=== PATIENT | male | born 1955 | race African-American/Black ===

== ENCOUNTER 2016-07-24 21:44 | Inpatient (IN) | payer OTHER, MEDICARE ==
[~2016-07-24] VITALS: Ht 182.9 cm; Wt 123.0 kg
[~2016-07-24 21:44] MED LIST: AMBI10TA PO; CORE25TA PO; GABA800T PO; HYDR-3535 PO; HYDR50TA15 PO; HYDR50TA3 PO; LANTUS2P SQ; METO5TAB PO; NIFE15TA PO; NITR1SUB3 SL; NOVORP2 SQ; ORPH100T PO; POTA1TAB4 PO; ROSU10 PO; WARF-60 PO
[2016-07-24 21:45] VITALS: BP 221/102; PULSE 70; RESP 16; TEMP 98.1; O2SAT 96
[2016-07-24 21:56] VITALS: BP 242/116; PULSE 69; RESP 15; TEMP 98.8; O2SAT 95
[2016-07-24] MEDS ORDERED: hydrALAZINE HCL 20 MG/ML VIAL IV PUSH ONE (22:00)
[2016-07-24] MEDS ORDERED: SODIUM CHLORIDE 0.9% FLUSH 5 ML FLUSH IVF PRN (22:00)
[2016-07-24 22:03] VITALS: BP 242/116; PULSE 76; RESP 18; O2SAT 94
[2016-07-24] MEDS: NITROGLYCERIN 0.4 MG SL 25 TABS/BTL SL SCH ×3 (22:03→22:13)
--- NOTE | 2016-07-24 22:03 | PD ---
HPI Chief Complaint: Chest Pain Time Seen by Provider: 21:50 Travel History International Travel<30 days: No Contact w/Intl Traveler<30days: No History of Present Illness HPI Patient is a 61-year-old male with history of coronary disease, diabetes, hyperlipidemia, DVT, pancreatitis, sickle cell trait, presents to emergency room with complaints of chest pain. Patient reports history of multiple cardiac stents placed in the past. Patient reports that he does follow with Dr. Sriram Brooks in the office and is scheduled to have an appointment with him on August 03, 2016. Patient reports that around 8 PM tonight, he was getting to go to bed and began having left-sided chest pain. Patient reports that the pain feels like a "pressure to my chest" which radiates to his neck. Patient reports that he has had similar symptoms in the past when he has had chest pain. Patient reports that he feels short of breath with this chest pain. Patient denies diaphoresis , palpitations, nausea vomiting with symptoms. Patient denies cough or congestion or any other symptoms at this time. Patient does have history of hypertension, patient's blood pressures elevated at this time, patient reports that he has been taking his antihypertensives as prescribed. PFSH Past Medical History Hx Anticoagulant Therapy: Yes AAA: Yes (JUL 2011/ ) Anemia: Yes Arthritis: No Asthma: No Autoimmune Disease: No Blood Disorders: Yes (SICKLE CELL TRAIT) Anxiety: No Depression: No Heart Rhythm Problems: No Cancer: No Cardiac Catheterization: Yes Cardiovascular Problems: Yes (HTN, STENTS) High Cholesterol: Yes Chemotherapy: No Chest Pain: Yes Congestive Heart Failure: No COPD: No Cerebrovascular Accident: Yes Coronary Artery Disease: Yes Diabetes: Yes Diminished Hearing: No Deep Vein Thrombosis: Yes (LT LEG) Endocrine: Yes GERD: No Glaucoma: No Genitourinary: No Headaches: No Hepatitis: No Hiatal Hernia: No Heparin Induced Thrombocytopen: No Hypertension: Yes Immune Disorder: No Implanted Vascular Access Dvce: Yes (RIGHT INSULIN PUMP removed) Kidney Stones: No Musculoskeletal: Yes Neurologic: No Psychiatric: No Reproductive: No Respiratory: Yes Immunizations Current: Yes Migraines: No Myocardial Infarction: No Pancreatitis: Yes Radiation Therapy: No Renal Failure: No Seizures: No Sickle Cell Disease: Yes (TRAIT) Sleep Apnea: No Thyroid Disease: No Ulcer: No PNEUMOCCOCAL Vaccine (Year): 3 Past Surgical History Abdominal Aneurysm Repair: Yes (2012) Abdominal Surgery: Yes AICD: No Appendectomy: No Arteriovenous Shunt: No Body Medical Devices: STENTS X 4 Cardiac Surgery: Yes Cholecystectomy: Yes Coronary Artery Bypass Graft: No Coronary Stent: Yes (2009 X 2, 2010 X2) Ear Surgery: No Endocrine Surgery: No Eye Surgery: No Genitourinary Surgery: No Gynecologic Surgery: No Insulin Pump: Yes (removed) Joint Replacement: Yes (left hip) Neurologic Surgery: No Oral Surgery: No Pacemaker: No Thoracic Surgery: No Other Surgery: Yes (FEM-POP L LEG; ) Social History Alcohol Use: No Tobacco Use: No (QUIT 2005) Substance Use: No Allergies-Medications (Allergen,Severity, Reaction): Coded Allergies: DAWIT Inhibitors (Verified Allergy, Severe, ANGIOEDEMA, 07/24/16) Vasotec (Verified Allergy, Severe, 07/24/16) ANGIOEDEMA Clonidine (Verified Allergy, Mild, DRY MOUTH, 07/24/16) Dilaudid (Verified Adverse Reaction, Intermediate, ITCHING, 07/24/16) Reported Meds & Prescriptions Reported Meds & Active Scripts Active Nifedical XL (Nifedipine) 60 Mg Tab 60 Mg PO DAILY 30 Days Hydralazine (Hydralazine HCl) 50 Mg Tab 50 Mg PO TID 30 Days Reported Warfarin 10 Mg Tab 13 Mg PO DAILY Lantus Inj (Insulin Glargine) 1,000 Unit/10 Ml Vial 60 Units SQ BID Metoclopramide (Metoclopramide HCl) 5 Mg Tab 5 Mg PO TIDAC Orphenadrine ER 12 HR (Orphenadrine Citrate) 100 Mg Tab 100 Mg PO BID Ambien (Zolpidem Tartrate) 10 Mg Tab 10 Mg PO HS PRN Novolin R Inj (Insulin Human Regular) 1,000 Unit/10 Ml Vial 0 SQ TIDACHS Sliding Scale As Directed. Nitroglycerin SL (Nitroglycerin) 0.4 Mg Subl 0.4 Mg SL DIRECTED PRN ONE TABLET UNDER THE TONGUE NEEDED FOR CHEST PAIN, MAY REPEAT EVERY FIVE MINUTES FOR A TOTAL OF 3 DOSES OR CALL 911 IF NO RELIEF Lortab (Hydrocodone-Acetaminophen) 10-325 Mg Tab 1 Tab PO Q4H PRN K-Tab (Potassium Chloride) 20 Meq Tab 20 Meq PO DAILY Hydrochlorothiazide 50 Mg Tab 50 Mg PO DAILY Crestor (Rosuvastatin Calcium) 10 Mg Tab 10 Mg PO DAILY Coreg (Carvedilol) 25 Mg Tab 25 Mg PO BID Gabapentin 800 Mg Tab 800 Mg PO TID Review of Systems General / Constitutional: No: Fever Eyes: No: Visual changes HENT: No: Headaches Cardiovascular: Positive: Chest Pain or Discomfort, No: Diaphoresis Respiratory: Positive: Shortness of Breath Gastrointestinal: No: Abdominal Pain Genitourinary: No: Dysuria Musculoskeletal: No: Pain Skin: No Rash Neurologic: No: Weakness Psychiatric: No: Depression Endocrine: No: Polydipsia Hematologic/Lymphatic: No: Easy Bruising Physical Exam Narrative GENERAL: No acute distress, nontoxic SKIN: Warm and dry. HEAD: Atraumatic. Normocephalic. EYES: Pupils equal and round. No scleral icterus. No injection or drainage. ENT: No nasal bleeding or discharge. Mucous membranes pink and moist. NECK: Trachea midline. No JVD. CARDIOVASCULAR: Regular rate and rhythm. No murmur appreciated. RESPIRATORY: No accessory muscle use. Clear to auscultation. Breath sounds equal bilaterally. GASTROINTESTINAL: Abdomen soft, non-tender, nondistended. Hepatic and splenic margins not palpable. MUSCULOSKELETAL: No obvious deformities. No clubbing. No cyanosis. No edema. NEUROLOGICAL: Awake and alert. No obvious cranial nerve deficits. Motor grossly within normal limits. Normal speech. PSYCHIATRIC: Appropriate mood and affect; insight and judgment normal. Data Data Last Documented VS Vital Signs Date Time Temp Pulse Resp B/P Pulse Ox O2 Delivery O2 Flow Rate FiO2 07/24/16 22:35 65 17 203/103 94 07/24/16 22:09 Room Air 07/24/16 21:56 98.8 Orders Electrocardiogram (07/24/16 21:57) B-Type Natriuretic Peptide (07/24/16 21:57) Ckmb (Isoenzyme) Profile (07/24/16 21:57) Complete Blood Count With Diff (07/24/16 21:57) Comprehensive Metabolic Panel (07/24/16 21:57) Prothrombin Time / Inr (Pt) (07/24/16 21:57) Act Partial Throm Time (Ptt) (07/24/16 21:57) Troponin I (07/24/16 21:57) Chest, Single Ap (07/24/16 21:57) Ecg Monitoring (07/24/16 21:57) Iv Access Insert/Monitor (07/24/16 21:57) Oximetry (07/24/16 21:57) Sodium Chloride 0.9% Flush (Ns Flush) (07/24/16 22:00) Nitroglycerin Sl (Nitrostat Sl) (07/24/16 22:00) Hydralazine Inj (Apresoline Inj) (07/24/16 22:00) Morphine Inj (Morphine Inj) (07/24/16 22:30) CKMB (07/24/16 22:15) CKMB% (07/24/16 22:15) Ventilation & Perfusion Scan (07/24/16 ) Morphine Inj (Morphine Inj) (07/24/16 23:45) Heparin Infusion KENNEDI.Q1H (07/24/16 23:37) Heparin-D5w Inj (Heparin-D5w Inj) (07/24/16 23:45) Admit Order (Ed Use Only) (07/25/16 01:14) Labs Laboratory Tests Test 07/24/16 22:15 White Blood Count 5.8 TH/MM3 Red Blood Count 4.72 MIL/MM3 Hemoglobin 12.9 GM/DL Hematocrit 37.1 % Mean Corpuscular Volume 78.6 FL Mean Corpuscular Hemoglobin 27.4 PG Mean Corpuscular Hemoglobin 34.8 % Concent Red Cell Distribution Width 17.9 % Platelet Count 208 TH/MM3 Mean Platelet Volume 8.4 FL Neutrophils (%) (Auto) 56.1 % Lymphocytes (%) (Auto) 30.3 % Monocytes (%) (Auto) 10.5 % Eosinophils (%) (Auto) 2.5 % Basophils (%) (Auto) 0.6 % Neutrophils # (Auto) 3.2 TH/MM3 Lymphocytes # (Auto) 1.7 TH/MM3 Monocytes # (Auto) 0.6 TH/MM3 Eosinophils # (Auto) 0.1 TH/MM3 Basophils # (Auto) 0.0 TH/MM3 CBC Comment DIFF FINAL Differential Comment Prothrombin Time 12.2 SEC Prothromb Time International 1.1 RATIO Ratio Activated Partial 28.1 SEC Thromboplast Time Sodium Level 142 MEQ/L Potassium Level 4.2 MEQ/L Chloride Level 105 MEQ/L Carbon Dioxide Level 29.8 MEQ/L Anion Gap 7 MEQ/L Blood Urea Nitrogen 16 MG/DL Creatinine 1.61 MG/DL Estimat Glomerular Filtration 54 ML/MIN Rate Random Glucose 122 MG/DL Calcium Level 7.8 MG/DL Total Bilirubin 0.5 MG/DL Aspartate Amino Transf 35 U/L (AST/SGOT) Alanine Aminotransferase 33 U/L (ALT/SGPT) Alkaline Phosphatase 94 U/L Total Creatine Kinase 418 U/L Creatine Kinase MB 3.7 NG/ML Creatine Kinase MB % 0.9 % Troponin I 0.07 NG/ML Total Protein 6.8 GM/DL Albumin 3.1 GM/DL B-Type Natriuretic Peptide 61 PG/ML MDM Medical Decision Making Medical Screen Exam Complete: Yes Emergency Medical Condition: Yes Interpretation(s) EKG at 2200: NSR at 66bpm, qt/qtc: 398/411, no acute st or t wave changes Differential Diagnosis ACS, arrhythmia, electrolyte abnormality, accelerated hypertension, pneumothorax , pneumonia Narrative Course Patient is a 61-year-old male who presents to emergency room for evaluation of chest pain. Patient has history of significant coronary disease with history of cardiac stents in the past. Patient presents to the ER with complaints of left sided chest pain which feels a pressure to his chest with associated shortness of breath. Upon arrival to the emergency room, patient was placed on cardiac nurse practitioner, EKG obtained. EKG normal sinus rhythm at 66 beats minute with no acute ST-T wave changes. CBC, BMP, CE, xray of chest ordered for further eval of pain. SL nitro ordered for symptomatic relief of chest pain. Patient reports that he is currently on Coumadin as he has history of left leg DVT, INR is 1.1, patient is complaining of "I feel like I'm being suffocated to my lungs." Discussed with patient concern for possible PE as she is subtherapeutic with INR 1.1, pt's creatine is 1.61 - VQ scan ordered for eval of possible PE - pt agreeable to plan, heparin was initially started for possible PE as patient was subtherapeutic with his INR and is currently on warfarin, plan to discontinue if pt has low prob VQ for pe Last Impressions Chest X-Ray 07/24/[id number] Signed Impressions: Service Date/Time: Sunday, July 24, 2016 22:02 - CONCLUSION: No acute disease. Willie Watkins MD Lung Scan-VQ Nuclear Medicine 07/24/16 0000 Signed Impressions: Service Date/Time: Sunday, July 24, 2016 23:51 - CONCLUSION: Low probability for pulmonary embolus. Ramsey Munguia MD Pt does have trop of 0.07 - this was reviewed with pt as well case reviewed with Dr Hale who accepts pt to service Physician Communication Physician Communication case reviewed with Dr Hale Diagnosis Primary Impression: Elevated troponin Additional Impression: Subtherapeutic anticoagulation Admitting Information Admitting Physician Requests: Admit Aaliyah Santos DO Jul 24, 2016 22:03
[2016-07-24 22:09] VITALS: BP 183/95; PULSE 74; RESP 18; O2SAT 93
[2016-07-24] MEDS ORDERED: LANTUS2P SQ (22:12)
[2016-07-24] MEDS ORDERED: WARF-22 PO (22:12)
[2016-07-24 22:14] VITALS: BP 186/94; PULSE 71; RESP 18; O2SAT 94
--- NOTE | 2016-07-24 22:25 | RADRPT ---
EXAM DATE/TIME: 07/24/2016 22:02 [facility] COMPARISON: CHEST SINGLE AP, July 08, 2016, 4:11. INDICATIONS : Chest pain. MEDICAL HISTORY : Hypertension. Diabetes mellitus type II. SURGICAL HISTORY : None. ENCOUNTER: Initial ACUITY: 1 day PAIN SCORE: 5/10 LOCATION: Bilateral chest FINDINGS: A single view of the chest demonstrates the lungs to be symmetrically aerated without evidence of mas s, infiltrate or effusion. The cardiomediastinal contours are unremarkable. Osseous structures are intact. CONCLUSION: No acute disease. Willie Watkins MD on July 24, 2016 at 22:23 Board Certified Radiologist. This report was verified electronically.
[2016-07-24] MEDS ORDERED: MORPHINE SULFATE 4 MG/ML INJ IV PUSH ONE ×2 (22:30→23:45)
[2016-07-24 22:35] VITALS: BP 203/103; PULSE 65; RESP 17; O2SAT 94
[2016-07-24 22:38] LABS: AUTOMATED NEUTROPHIL # 3.2 TH/MM3 (1.8-7.7); BASOPHIL % 0.6 % (0.0-2.0); EOSINOPHIL # 0.1 TH/MM3 (0-0.4); EOSINOPHIL % 2.5 % (0.0-4.0); HEMATOCRIT 37.1 % (39.0-51.0); HEMO FLAGS DIFF FINAL; LYMPH % 30.3 % (9.0-44.0); LYMPHOCYTE # 1.7 TH/MM3 (1.0-4.8); MEAN CELL VOLUME 78.6 FL (80.0-100.0); MEAN CORPUSCULAR HEMOGLOBIN 27.4 PG (27.0-34.0); MEAN CORPUSCULAR HGB CONC 34.8 % (32.0-36.0); MONO % 10.5 % (0.0-8.0); NEUT % 56.1 % (16.0-70.0); PLATELET COUNT 208 TH/MM3 (150-450); RED BLOOD COUNT 4.72 MIL/MM3 (4.50-5.90); RED CELL DISTRIBUTION WIDTH 17.9 % (11.6-17.2); WHITE BLOOD COUNT 5.8 TH/MM3 (4.0-11.0)
[2016-07-24 22:49] LABS: APTT (PATIENT) 28.1 SEC (24.3-30.1); INTERNATIONAL NORMALIZED RATIO 1.1 RATIO; PROTHROMBIN TIME - PATIENT 12.2 SEC (9.8-11.6)
[2016-07-24 23:05] LABS: ALKALINE PHOSPHATASE 94 U/L (45-117); ANION GAP 7 MEQ/L (5-15); AST (GOT) 35 U/L (15-37); BICARBONATE 29.8 MEQ/L (21.0-32.0); BLOOD UREA NITROGEN 16 MG/DL (7-18); CHLORIDE 105 MEQ/L (98-107); CREATINE KINASE 418 U/L (39-308); GLOMERULAR FILTRATION RATE 54 ML/MIN (>89); POTASSIUM 4.2 MEQ/L (3.5-5.1); SODIUM (NA) 142 MEQ/L (136-145); TOTAL BILIRUBIN ADULT 0.5 MG/DL (0.2-1.0)
[2016-07-24 23:18] LABS: CKMB 3.7 NG/ML (0.5-3.6)
[2016-07-24] MEDS ORDERED: HEPARIN-D5W INJ 250 ML IV SCH (23:45)
[2016-07-24 23:55] LABS: ALT (GPT) 33 U/L (12-78)
[2016-07-25] VITALS (24 sets, daily range): BP systolic 133–208; BP diastolic 69–125; PULSE 59–94; RESP 16–20; TEMP 97.6–98.2; O2SAT 93–100
--- NOTE | 2016-07-25 00:59 | RADRPT ---
EXAM DATE/TIME: 07/24/2016 23:51 [facility] COMPARISON: No previous studies available for comparison. INDICATIONS : Left sided chest pain with dyspnea. DOSE: 8.5 mCi Tc99m MAA IV 1.1 mCi Tc99m DTPA aerosol MEDICAL HISTORY : Hypertension. Pancreatitis. Diabetes mellitus type 2. Coronary artery disease. SURGICAL HISTORY : Coronary artery stent. Cholecystectomy. Abdominal aortic aneurysm repair. Left hip replacement. ENCOUNTER: Initial ACUITY: 2 days PAIN SCALE: 7/10 LOCATION: Left chest TECHNIQUE: Following five minutes of tidal breathing of DTPA aerosol, planar images of the lungs were performed in eight projections. The patient was then injected with MAA, and eight-view perfusion scan was perf ormed. FINDINGS: There is a homogeneous pattern of aerosol delivery to the periphery of both lungs. No focal ventilat ory defects are seen. The perfusion lung scan demonstrates a homogenous pattern of uptake in both lungs. No segmental or s ubsegmental defects are seen. CONCLUSION: Low probability for pulmonary embolus. Ramsey Munguia MD on July 25, 2016 at 0:57 Board Certified Radiologist. This report was verified electronically.
[2016-07-25] MEDS ORDERED: ONDANSETRON HCL 4 MG/2 ML VIAL IVP PRN (01:30)
[2016-07-25] MEDS ORDERED: BISACODYL 10 MG SUPP PR PRN (01:30)
[2016-07-25] MEDS ORDERED: ACETAMINOPHEN 325 MG TAB PO PRN (01:30)
[2016-07-25] MEDS ORDERED: ASPIRIN 325 MG TAB PO ONE (01:30)
[2016-07-25] MEDS ORDERED: PILL SPLITTER OTHER PRN (01:45)
--- NOTE | 2016-07-25 01:57 | HHI.HP ---
[facility] Physician Jhonathan Harris MD Admission Diagnosis Positive Troponin Diagnoses: (1) Chest pain Diagnosis: Principal (2) Elevated troponin Diagnosis: Principal (3) History of DVT (deep vein thrombosis) Diagnosis: Principal (4) Subtherapeutic anticoagulation Diagnosis: Principal (5) Noncompliance Diagnosis: Principal (6) DM (diabetes mellitus) Diagnosis: Principal (7) Chronic back pain Diagnosis: Principal (8) HTN (hypertension) Diagnosis: Principal Travel History International Travel<30 Days: No Contact w/Intl Traveler <30 Da: No Traveled to Known Affected Are: No History of Present Illness This is a 61 year male with a PMH of HTN, CAD, DM, h/o DVT on Coumadin, Sickle Cell Train, Non-Compliance and Chronic Pain who came to the ER w/ complaints of chest pain starting earlier today. Pt has had multiple presentations to ER in the past for similar symptoms, approx 2-3 times per month. Per records, pt w/ drug-seeking behavior. On this occasion, states pain began acutely. No SOB. Follows w/ Dr. Borges as outpatient, upcoming appt on 08/03/16. Previous admission in 05/2016 for same, s/p Nuclear Stress 05/22/16 negative for ischemia and low risk. On arrival, BP 221/102, HR 70, O2 sat 96% on room air, Afebrile. S/p Hydralazine 10mg IV in ER. BP currently 180/89, HR 62. CBC unremarkable. Creatinine 1.61, producing 1.63 on 07/01/16. Troponin 0.07. EKG with no acute changes. INR subtherapeutic at 1.1. CXR w/ no acute findings. V/Q Scan w/ low probability for PE. Review of Systems Other ROS: 14 point review of systems otherwise negative. Past Family Social History Past Medical History PMH: HTN, CAD, DM, h/o DVT on Coumadin, Sickle Cell Train, Non-Compliance and Chronic Pain Past Surgical History PAST SURGICAL HISTORY: AAA Repair, Cholecystectomy, Cardiac Stent, Insulin Pump with Removal, Left Hip Replacement, Femoropopliteal Bypass Allergies: Coded Allergies: DAWIT Inhibitors (Verified Allergy, Severe, ANGIOEDEMA, 07/24/16) Vasotec (Verified Allergy, Severe, 07/24/16) ANGIOEDEMA Clonidine (Verified Allergy, Mild, DRY MOUTH, 07/24/16) Dilaudid (Verified Adverse Reaction, Intermediate, ITCHING, 07/24/16) Family History PAST FAMILY HISTORY: Reviewed. No h/o DM or CAD Social History PAST SOCIAL HISTORY: Negative for alcohol. History of tobacco abuse, quit 2005. History of cocaine abuse. Physical Exam Vital Signs Vital Signs Date Time Temp Pulse Resp B/P Pulse Ox O2 Delivery O2 Flow Rate FiO2 07/24/16 22:35 65 17 203/103 94 07/24/16 22:14 71 18 186/94 94 07/24/16 22:09 74 18 183/95 93 Room Air 07/24/16 22:03 76 18 242/116 94 Room Air 07/24/16 21:56 98.8 69 15 242/116 95 07/24/16 21:45 98.1 70 16 221/102 96 Physical Exam PE: GENERAL: Morbidly obese middle-age black male in no acute distress. HEENT: PERRLA, EOMI. No scleral icterus or conjunctival pallor. No lid lag or facial droop. CARDIOVASCULAR: Regular rate and rhythm. No obvious murmurs to auscultation. No chest tenderness to palpation. RESPIRATORY: No obvious rhonchi or wheezing. Clear to auscultation. Breath sounds equal bilaterally. GASTROINTESTINAL: Abdomen soft, non-tender, nondistended. BS normal. MUSCULOSKELETAL: Extremities without clubbing, cyanosis, or edema. No obvious deformities. NEUROLOGICAL: Awake, alert and oriented x4. No focal neurologic deficits. Moving both upper and lower extremities spontaneously. Laboratory Laboratory Tests Test 07/24/16 22:15 White Blood Count 5.8 Red Blood Count 4.72 Hemoglobin 12.9 Hematocrit 37.1 Mean Corpuscular Volume 78.6 Mean Corpuscular Hemoglobin 27.4 Mean Corpuscular Hemoglobin 34.8 Concent Red Cell Distribution Width 17.9 Platelet Count 208 Mean Platelet Volume 8.4 Neutrophils (%) (Auto) 56.1 Lymphocytes (%) (Auto) 30.3 Monocytes (%) (Auto) 10.5 Eosinophils (%) (Auto) 2.5 Basophils (%) (Auto) 0.6 Neutrophils # (Auto) 3.2 Lymphocytes # (Auto) 1.7 Monocytes # (Auto) 0.6 Eosinophils # (Auto) 0.1 Basophils # (Auto) 0.0 CBC Comment DIFF FINAL Differential Comment Prothrombin Time 12.2 Prothromb Time International 1.1 Ratio Activated Partial 28.1 Thromboplast Time Sodium Level 142 Potassium Level 4.2 Chloride Level 105 Carbon Dioxide Level 29.8 Anion Gap 7 Blood Urea Nitrogen 16 Creatinine 1.61 Estimat Glomerular Filtration 54 Rate Random Glucose 122 Calcium Level 7.8 Total Bilirubin 0.5 Aspartate Amino Transf 35 (AST/SGOT) Alanine Aminotransferase 33 (ALT/SGPT) Alkaline Phosphatase 94 Total Creatine Kinase 418 Creatine Kinase MB 3.7 Creatine Kinase MB % 0.9 Troponin I 0.07 Total Protein 6.8 Albumin 3.1 B-Type Natriuretic Peptide 61 Result Diagram: 07/24/16221407/24/162214 Assessment and Plan Problem List: (1) Chest pain ICD Code: R07.9 Status: Acute (2) Elevated troponin ICD Code: R79.89 Status: Acute (3) HTN (hypertension) ICD Code: I10 Status: Acute (4) History of DVT (deep vein thrombosis) ICD Code: Z86.718 Status: Acute (5) Noncompliance ICD Code: Z91.19 Status: Acute (6) Chronic back pain ICD Code: G89.29 Status: Chronic (7) Subtherapeutic anticoagulation ICD Code: Z51.81 Status: Acute (8) DM (diabetes mellitus) ICD Code: E11.9 Status: Chronic Assessment and Plan A/P: 1. Chest Pain: Atypical. Multiple ER presentations in the past for same, 2-3 times per month, per records drug-seeking behavior. Previous Nuclear Stress 05/22/2016 negative for ischemia, low risk. Initial trop 0.07, EKG w/ no acute changes. Elevated trop unlikely secondary to acute ischemia, however will check serial cardiac enzymes for trend. Follows w/ Dr. Borges as outpatient , has appt 08/03/16. Resume home ASA, Statin, Coreg. H/o Cocaine Abuse, check U /a, Urine Drug Screen. 2. Elevated Trop: R/o ACS. H/o CAD, check serial enzymes. Recent Nuclear Stress negative. NTG/Morphine prn. 3. HTN: Uncontrolled. BP on arrival 221/102, HR 70 s/p Hydralazine IV, repeat BP currently 180/89, HR 62. Non-compliant w/ meds. Resume home medications. 4. H/o DVT: On Coumadin, non-compliant w/ subtherapeutic INR of 1.1. On Coumadin 13mg qd. Restart Coumadin, check INR in am. 5. DM: Sliding scale w/ Accu-Cheks. Resume home Lantus. 6. Chronic Pain: multiple ER presentations for pain, h/o drug seeking behavior. Resume home medications. 7. DVT Prophylaxis: Coumadin 8. Social work for d/c planning as needed. 9. Case discussed w/ ER physician at length Physician Certification 2 Midnight Certification Type: Admission for Inpatient Services Order for Inpatient Services The services are ordered in accordance with Medicare regulations or non- Medicare payer requirements, as applicable. In the case of services not specified as inpatient-only, they are appropriately provided as inpatient services in accordance with the 2-midnight benchmark. Estimated LOS (days): 2 days is the estimated time the patient will need to remain in the hospital, assuming treatment plan goals are met and no additional complications. Post-Hospital Plan: Home Analilia Hale MD Jul 25, 2016 01:57
[2016-07-25] MEDS: ACETAMINOPHEN/HYDROcodone 325 MG/5 MG TAB PO PRN ×2 (02:37→11:00)
[2016-07-25 03:45] LABS: AUTOMATED NEUTROPHIL # 3.1 TH/MM3 (1.8-7.7); BASOPHIL % 0.8 % (0.0-2.0); EOSINOPHIL # 0.1 TH/MM3 (0-0.4); EOSINOPHIL % 2.4 % (0.0-4.0); HEMATOCRIT 34.5 % (39.0-51.0); HEMO FLAGS DIFF FINAL; LYMPH % 29.8 % (9.0-44.0); LYMPHOCYTE # 1.6 TH/MM3 (1.0-4.8); MEAN CELL VOLUME 79.2 FL (80.0-100.0); MEAN CORPUSCULAR HEMOGLOBIN 27.2 PG (27.0-34.0); MEAN CORPUSCULAR HGB CONC 34.3 % (32.0-36.0); MONO % 9.1 % (0.0-8.0); NEUT % 57.9 % (16.0-70.0); PLATELET COUNT 196 TH/MM3 (150-450); RED BLOOD COUNT 4.36 MIL/MM3 (4.50-5.90); WHITE BLOOD COUNT 5.3 TH/MM3 (4.0-11.0)
[2016-07-25] MEDS: MORPHINE SULFATE 4 MG/ML INJ IV PRN ×6 (03:52→22:09)
[2016-07-25 04:21] LABS: ALKALINE PHOSPHATASE 84 U/L (45-117); TOTAL BILIRUBIN ADULT 0.4 MG/DL (0.2-1.0)
[2016-07-25 04:26] LABS: ALT (GPT) 33 U/L (12-78); ANION GAP 6 MEQ/L (5-15); AST (GOT) 49 U/L (15-37); BICARBONATE 27.9 MEQ/L (21.0-32.0); BLOOD UREA NITROGEN 18 MG/DL (7-18); CHLORIDE 107 MEQ/L (98-107); GLOMERULAR FILTRATION RATE 69 ML/MIN (>89); POTASSIUM 4.5 MEQ/L (3.5-5.1); SODIUM (NA) 141 MEQ/L (136-145)
[2016-07-25] MEDS ORDERED: NITROGLYCERIN 0.3 MG SL 100 TABS/BTL SL PRN (05:15)
[2016-07-25] MEDS: NITROGLYCERIN 2% OINT 1 GM PACKET TOPICAL SCH ×4 (05:47→23:51)
[2016-07-25] MEDS: NIFEdipine 60 MG SUSTAINED RELEASE TAB PO SCH (08:04)
[2016-07-25] MEDS: INSULIN DETEMIR 100 UNITS/ML VIAL SQ SCH ×2 (08:04→21:13)
[2016-07-25] MEDS: hydrALAZINE HCL 50 MG TAB PO SCH ×3 (08:04→17:26)
[2016-07-25] MEDS: GABAPENTIN 400 MG CAP PO SCH ×3 (08:04→17:26)
[2016-07-25] MEDS: CARVEDILOL 12.5 MG TAB PO SCH ×2 (08:04→21:13)
[2016-07-25] MEDS: ATORVASTATIN 20 MG TAB PO SCH (08:04)
[2016-07-25] MEDS: SODIUM CHLORIDE 0.9% FLUSH 5 ML FLUSH FLUSH SCH ×2 (08:05→21:13)
[2016-07-25] MEDS: ORPHENADRINE CITRATE 100 MG SUSTAINED RELEASE TAB PO SCH ×2 (08:17→21:13)
[2016-07-25] MEDS: HYDROCHLOROTHIAZIDE 50 MG TAB PO SCH (08:17)
--- NOTE | 2016-07-25 08:27 | EKG ---
Date Performed: 07/24/2016 Time Performed: 22:00:52 PTAGE: 61 years EKG: Sinus rhythm NORMAL ECG PREVIOUS TRACING : 07/08/2016 04.06 No significant change from previous tracing noted. DOCTOR: Raz Faustin Interpretating Date/Time 07/25/2016 08:26:42
--- NOTE | 2016-07-25 11:01 | MB ---
cc: YONY TAYLOR M.D. DATE OF CONSULTATION 07/25/2016 HISTORY OF PRESENT ILLNESS Elvin Latham is a 61-year-old man with known heart disease. He has had very poor high blood pressure control. He has sleep apnea but does not tolerate C-PAP and turned his machine in a few years ago. He was describing chest pain he says started at about 9 p.m. He had a smothering feeling with his breathing and also pain in his chest that he could change by moving his body around in different positions. He denies noncompliance with his blood pressure meds and says his blood pressure was high when he saw his primary care doctor earlier in the week. He does not have any chest pain now he has had a VQ scan showing no evidence of ischemia. He has had a nuclear stress test on May 22 interpreted as normal. PAST SURGICAL HISTORY 1. Coronary artery disease on May 18, 2010. He had a 3.0 x 18-mm bare metal integrity stent in the mid and distal right coronary artery by Dr. Duke. He has had three caths since then, the last one September 03, 2013. His right coronary artery had 30-40% proximal disease but the stents were patent. His other vessels were normal and his ejection fraction was normal. 2. Peripheral arterial disease. He has had a left fem bypass. 3. Aortic aneurysm history that has apparently been repaired. 4. Cholecystectomy. 5. Blood total hip replacement. PAST MEDICAL HISTORY 1. Besides coronary disease includes. 2. Chronic venous insufficiency. 3. Diabetic peripheral neuropathy. 4. Previous DVT of the left leg on warfarin chronically. 5. Hypertensive heart disease. 6. Sickle cell trait. 7. Diabetes. SOCIAL HISTORY He has quit smoking around 2004. ALLERGIES DAWIT INHIBITORS - He has had a history of the facial swelling from DAWIT inhibitors. CLONIDINE - Dry mouth, not really an allergy, just an effect. DILAUDID - Hives. REVIEW OF SYSTEMS Otherwise noncontributory. PHYSICAL EXAMINATION General: Physical exam reveals a severely obese -Scottish man who is not in any chief distress. Vital Signs: Blood pressure is markedly elevated. HEENT: Exam unremarkable. Neck: No JVD, no bruits. Chest: Clear to auscultation. Cardiac Exam: S1-S2. Regular rate and rhythm. No murmurs or gallops. Abdomen: Obese, soft, nontender. No masses can be appreciated. Extremities: Diminished pedal pulses. Femoral pulses are palpable but also diminished. He has got some brawny edema in the lower extremities. IMAGING STUDIES VQ scan shows low probability for PE. Chest x-ray showed no acute disease. LABORATORIES Creatinine is 1.29. It was 1.61 on admission. Troponins are 0.07 and 0.06, relatively nonspecific. Tox screen not performed this admission. Hematocrit is 34.5 with MCV of 79.2. INR is 1.1. Reviewing his vitals, his blood pressures have been extremely elevated since coming in. The first recorded blood pressure in the ED was 221/102, shortly thereafter was 242/116. IMPRESSION 1. Severe hypertension with extremely elevated values. Not clear why this is, if it is due to compliance issues or whether he is not on an adequate regimen. 2. Chest pain does not sound suggestive of ischemia. Troponins are very nonspecific. 3. History of PE with subtherapeutic INR but no evidence for PE by VQ scan. PLAN At this point, try to treat him medically and he has been restarted on his blood pressure mes. Would like to see how he does on those. He may need further adjustment. Further therapy to be determined. MD RIVKA Basilio/KASEY /10:08 AM /10:46 AM
[2016-07-25 12:13] LABS: BLOOD, URINE NEG (NEG); GLUCOSE,URINE 150 mg/dL (NEG); KETONE, URINE NEG (NEG); MUCUS URINE FEW /lpf (OCC); NITRITE,URINE NEG (NEG); SQUAMOUS EPITHELIAL CELL URINE 1 /hpf (0-5); URINE COLOR YELLOW (YELLW/STRAW)
[2016-07-25 12:14] LABS: AMPHETAMINE, URINE NEG (NEG); BARBITURATES, URINE NEG (NEG); COCAINE, URINE NEG (NEG)
[2016-07-25 12:17] LABS: COMMENT (UR) CULT NOT INDICATED; CULTURE IF INDICATED CULT NOT INDICATED
[2016-07-25] MEDS ORDERED: hydrALAZINE HCL 20 MG/ML VIAL IV ONE (13:00)
[2016-07-25] MEDS: WARFARIN SOD 10 MG TAB PO SCH (15:39)
--- NOTE | 2016-07-25 15:44 | HHI.PR ---
Addendum to Inpatient Note Additional Information Patient seen and examined, his blood pressure was high this a.m. systolic 1:15, he was given a dose of IV hydralazine He stated he still feel chest and around 4-5 out of 6 Lorna Rodríguez MD Jul 25, 2016 15:44
[2016-07-25] MEDS ORDERED: WARFARIN SOD 10 MG TAB PO SCH (16:00)
[2016-07-25] MEDS ORDERED: WARFARIN SOD 3 MG TAB PO SCH (16:00)
[2016-07-25] MEDS: ZOLPIDEM TARTRATE 10 MG TAB PO PRN (22:09)
[2016-07-25] MEDS: SODIUM CHLORIDE 0.9% FLUSH 5 ML FLUSH FLUSH PRN (22:10)
[2016-07-26] VITALS (26 sets, daily range): BP systolic 151–180; BP diastolic 87–100; PULSE 65–88; RESP 18–20; TEMP 97.6–98.4; O2SAT 95–97
[2016-07-26] MEDS: SODIUM CHLORIDE 0.9% FLUSH 5 ML FLUSH FLUSH PRN ×2 (01:19→05:28)
[2016-07-26] MEDS: MORPHINE SULFATE 4 MG/ML INJ IV PRN ×6 (01:19→21:18)
[2016-07-26] MEDS: NITROGLYCERIN 2% OINT 1 GM PACKET TOPICAL SCH ×3 (05:28→17:52)
[2016-07-26] MEDS: NIFEdipine 60 MG SUSTAINED RELEASE TAB PO SCH (09:02)
[2016-07-26] MEDS: hydrALAZINE HCL 50 MG TAB PO SCH ×3 (09:02→17:52)
[2016-07-26] MEDS: CARVEDILOL 12.5 MG TAB PO SCH ×2 (09:02→21:43)
[2016-07-26] MEDS: GABAPENTIN 400 MG CAP PO SCH ×3 (09:02→17:52)
[2016-07-26] MEDS: ATORVASTATIN 20 MG TAB PO SCH (09:02)
[2016-07-26] MEDS: INSULIN DETEMIR 100 UNITS/ML VIAL SQ SCH ×2 (09:03→21:43)
[2016-07-26] MEDS: SODIUM CHLORIDE 0.9% FLUSH 5 ML FLUSH FLUSH SCH ×2 (09:03→21:00)
--- NOTE | 2016-07-26 09:29 | PD.CARD.PN ---
Subjective Subjective Remarks low grade chest tightness persists. No longer in his neck. BP still high Objective Vital Signs / I&O Vital Signs Date Time Temp Pulse Resp B/P Pulse Ox O2 Delivery O2 Flow Rate FiO2 07/26/16 08:00 98.1 83 18 162/100 96 07/26/16 07:00 80 07/26/16 06:00 72 07/26/16 04:00 76 07/26/16 03:30 98.4 80 20 164/91 95 07/26/16 03:00 81 07/26/16 02:00 80 07/26/16 01:00 75 07/26/16 00:00 70 07/25/16 23:45 98.2 72 20 168/96 93 07/25/16 23:00 72 07/25/16 22:00 71 07/25/16 21:00 73 07/25/16 20:00 87 07/25/16 20:00 98.0 79 20 168/97 96 07/25/16 19:00 76 07/25/16 18:04 94 07/25/16 17:04 75 07/25/16 16:20 91 07/25/16 16:08 18 07/25/16 15:30 97.7 59 18 133/69 96 07/25/16 15:30 59 07/25/16 14:02 63 07/25/16 13:01 73 07/25/16 12:31 61 07/25/16 11:57 18 07/25/16 11:45 61 07/25/16 11:45 97.6 61 18 137/113 97 07/25/16 10:01 68 07/25/16 09:29 82 165/93 I/O 07/25/16 07/25/16 07/25/16 07/26/16 07/26/16 07/26/16 07:00 15:00 23:00 07:00 15:00 23:00 Intake Total 720 ml 480 ml Output Total 1250 ml Balance 720 ml -770 ml Intake Oral 720 ml 480 ml Output Urine Total 1250 ml # Voids 3 # Bowel Movements 0 0 Physical Exam Morbidly obese, alert Chest Clear CV S1S2 RRR No edema Laboratory Laboratory Tests Test 07/25/16 07/25/16 11:30 13:20 Urine Color YELLOW Urine Turbidity CLEAR Urine pH 6.0 Urine Specific [place] 1.013 Urine Protein 300 mg/dL Urine Glucose (UA) 150 mg/dL Urine Ketones NEG mg/dL Urine Occult Blood NEG Urine Nitrite NEG Urine Bilirubin NEG Urine Urobilinogen LESS THAN 2.0 MG/DL Urine Leukocyte Esterase NEG Urine RBC 2 /hpf Urine WBC 2 /hpf Urine Squamous Epithelial 1 /hpf Cells Urine Mucus FEW /lpf Microscopic Urinalysis Comment CULT NOT INDICATED Urine Opiates Screen POS Urine Barbiturates Screen NEG Urine Amphetamines Screen NEG Urine Benzodiazepines Screen NEG Urine Cocaine Screen NEG Urine Cannabinoids Screen NEG Troponin I 0.07 NG/ML Assessment and Plan Problem List: (1) Accelerated hypertension (2) Elevated troponin (3) CAD (coronary artery disease) Assessment and Plan BP still uncontrolled. Add losartan. Possible cardiac cath tomorrow depending on clinical course Logan Hutson MD Jul 26, 2016 09:29
[2016-07-26] MEDS ORDERED: LOSARTAN 50 MG TAB PO ONE (09:30)
[2016-07-26] MEDS: HYDROCHLOROTHIAZIDE 50 MG TAB PO SCH (09:47)
[2016-07-26] MEDS: ORPHENADRINE CITRATE 100 MG SUSTAINED RELEASE TAB PO SCH ×2 (09:47→21:43)
[2016-07-26] MEDS: ACETAMINOPHEN/HYDROcodone 325 MG/5 MG TAB PO PRN ×2 (09:48→16:58)
--- NOTE | 2016-07-26 14:08 | EKG ---
Date Performed: 07/25/2016 Time Performed: 05:56:32 PTAGE: 61 years EKG: Sinus bradycardia Lateral ST changes are nonspecific Since previous tracing, no significant change noted Borderline ECG PREVIOUS TRACING : 07/24/2016 22.00 DOCTOR: Lex Corbin Interpretating Date/Time 07/26/2016 14:00:42
[2016-07-26] MEDS: WARFARIN SOD 10 MG TAB PO SCH (16:00)
--- NOTE | 2016-07-26 16:03 | HHI.PR ---
Subjective Remarks Sitting on the right of the bed, chest pain about 7 out of 10 with mild headache Blood pressure difficult to control on multiple antihypertensive medication, discussed with the nurse will increase hydralazine by mouth and add as needed Objective Vitals Vital Signs Date Time Temp Pulse Resp B/P Pulse Ox O2 Delivery O2 Flow Rate FiO2 07/26/16 12:00 71 07/26/16 11:00 66 07/26/16 11:00 98.3 68 18 165/87 95 07/26/16 10:00 67 07/26/16 09:00 80 07/26/16 08:00 98.1 83 18 162/100 96 07/26/16 08:00 73 07/26/16 07:00 80 07/26/16 06:00 72 07/26/16 04:00 76 07/26/16 03:30 98.4 80 20 164/91 95 07/26/16 03:00 81 07/26/16 02:00 80 07/26/16 01:00 75 07/26/16 00:00 70 07/25/16 23:45 98.2 72 20 168/96 93 07/25/16 23:00 72 07/25/16 22:00 71 07/25/16 21:00 73 07/25/16 20:00 87 07/25/16 20:00 98.0 79 20 168/97 96 07/25/16 19:00 76 07/25/16 18:04 94 07/25/16 17:04 75 07/25/16 16:20 91 07/25/16 16:08 18 I/O 07/25/16 07/25/16 07/25/16 07/26/16 07/26/16 07/26/16 06:59 14:59 22:59 06:59 14:59 22:59 Intake Total 720 ml 480 ml Output Total 1250 ml Balance 720 ml -770 ml Intake Oral 720 ml 480 ml Output Urine Total 1250 ml # Voids 3 # Bowel Movements 0 0 Result Diagram: 07/25/1631507/25/16315 Objective Remarks GENERAL: This is a well-nourished, well-developed patient, in no apparent distress. SKIN: No rashes, warm and dry HEAD: Atraumatic. Normocephalic. EYES: Pupils equal round and reactive. Extraocular motions intact. No scleral icterus. ENT: Nose without bleeding, or drainage, Airway patent. NECK: Trachea midline. Supple CARDIOVASCULAR: Regular rate and rhythm without murmurs, gallops, or rubs. RESPIRATORY: Fair air entry bilaterally. No wheezes, rales, or rhonchi. GASTROINTESTINAL: Abdomen soft, non-tender, nondistended. Positive bowel sounds MUSCULOSKELETAL: Extremities without clubbing, cyanosis, +1 edema. Pedal pulses appreciated NEUROLOGICAL: Awake and alert. Moves all extremity. Normal speech.no focal neurological deficit A/P Problem List: (1) Chest pain ICD Code: R07.9 Status: Acute (2) Elevated troponin ICD Code: R79.89 Status: Acute (3) HTN (hypertension) ICD Code: I10 Status: Acute (4) History of DVT (deep vein thrombosis) ICD Code: Z86.718 Status: Acute (5) Noncompliance ICD Code: Z91.19 Status: Acute (6) Chronic back pain ICD Code: G89.29 Status: Chronic (7) Subtherapeutic anticoagulation ICD Code: Z51.81 Status: Acute (8) DM (diabetes mellitus) ICD Code: E11.9 Status: Chronic Assessment and Plan 1. Chest Pain with increased troponin rule out non-STEMI: Atypical. Multiple ER presentations in the past for same, 2-3 times per month, per records drug- seeking behavior. Previous Nuclear Stress 05/22/2016 negative for ischemia, low risk. Initial trop 0.07, EKG w/ no acute changes. cardiac enzymes reviewed troponin still. . Resume home ASA, Statin, Coreg. H/o Cocaine Abuse, check U/ a, Urine Drug Screen. Appreciate cardiology consultation, plan for heart catheter tomorrow 2. Uncontrolled HTN: On multiple agents antihypertensive medication BP on arrival 221/102, HR 70 sH/O Non-compliant w/ meds. Resume home medications. Procardia, Coreg, lisinopril, nitroglycerin patch, hydrochlorothiazide, hydralazine which will increase to a 6 hours and will add IVF as needed 3. DM: Sliding scale w/ Accu-Cheks. Resume home Lantus. 4. H/o DVT: On Coumadin, non-compliant w/ subtherapeutic INR of 1.1. On Coumadin 13mg qd. Hold Coumadin for heart catheter and resume after 5. Chronic Pain: multiple ER presentations for pain, h/o drug seeking behavior. Resume home medications. 6. DVT Prophylaxis: Lorna Sevilla MD Jul 26, 2016 16:03
[2016-07-26] MEDS ORDERED: hydrALAZINE HCL 10 MG TAB PO PRN (16:15)
[2016-07-26] MEDS: ZOLPIDEM TARTRATE 10 MG TAB PO PRN (21:43)
[2016-07-27] VITALS (22 sets, daily range): BP systolic 112–197; BP diastolic 73–95; PULSE 58–122; RESP 16–18; TEMP 97.5–98.6; O2SAT 92–98
[2016-07-27] MEDS: SODIUM CHLORIDE 0.9% FLUSH 5 ML FLUSH FLUSH PRN (00:08)
[2016-07-27] MEDS: hydrALAZINE HCL 50 MG TAB PO SCH ×5 (00:08→23:57)
[2016-07-27] MEDS: NITROGLYCERIN 2% OINT 1 GM PACKET TOPICAL SCH ×5 (00:08→23:57)
[2016-07-27] MEDS: MORPHINE SULFATE 4 MG/ML INJ IV PRN ×8 (00:08→22:32)
[2016-07-27 06:19] LABS: HEMATOCRIT 34.7 % (39.0-51.0); MEAN CELL VOLUME 79.3 FL (80.0-100.0); MEAN CORPUSCULAR HEMOGLOBIN 26.4 PG (27.0-34.0); MEAN CORPUSCULAR HGB CONC 33.3 % (32.0-36.0); PLATELET COUNT 153 TH/MM3 (150-450); RED BLOOD COUNT 4.38 MIL/MM3 (4.50-5.90); RED CELL DISTRIBUTION WIDTH 17.7 % (11.6-17.2); REVIEW FLAG FINAL; WHITE BLOOD COUNT 4.7 TH/MM3 (4.0-11.0)
[2016-07-27 06:27] LABS: INTERNATIONAL NORMALIZED RATIO 1.7 RATIO; PROTHROMBIN TIME - PATIENT 18.8 SEC (9.8-11.6)
[2016-07-27 06:50] LABS: BICARBONATE 29.2 MEQ/L (21.0-32.0); POTASSIUM 4.1 MEQ/L (3.5-5.1)
--- NOTE | 2016-07-27 08:04 | PD.CARD.PN ---
Subjective Subjective Remarks Continuous chest pain he rates 3/10 Objective Medications Current Medications Medications (Trade) Dose Ordered Sig/Conchita Route Start Time Stop Time Status Last Admin (NS Flush) 2 ml UNSCH PRN FLUSH 07/25/16 01:30 07/27/16 00:08 (NS Flush) 2 ml BID FLUSH 07/25/16 09:00 07/26/16 21:00 (Zofran Inj) 4 mg Q6H PRN IVP 07/25/16 01:30 (Dulcolax Supp) 10 mg DAILY PRN PA 07/25/16 01:30 (Tylenol) 650 mg Q6H PRN PO 07/25/16 01:30 ([place] 5-325 Mg) 1 tab Q4H PRN PO 07/25/16 01:30 07/26/16 16:58 (Morphine Inj) 4 mg Q3H PRN IV 07/25/16 01:30 07/27/16 05:36 (Coreg) 25 mg BID PO 07/25/16 09:00 07/26/16 21:43 (Neurontin) 800 mg TID PO 07/25/16 09:00 07/26/16 17:52 (Hydrodiuril) 50 mg DAILY PO 07/25/16 09:00 07/26/16 09:47 (Levemir Inj) 60 units BID SQ 07/25/16 09:00 07/26/16 21:43 (Procardia Xl) 60 mg DAILY PO 07/25/16 09:00 07/26/16 09:02 (Norflex Cr) 100 mg BID PO 07/25/16 09:00 07/26/16 21:43 (Coumadin) 10 mg DAILY@1600 PO 07/25/16 16:00 07/25/16 15:39 (Ambien) 10 mg HS PRN PO 07/25/16 01:30 07/26/16 21:43 (Lipitor) 20 mg DAILY PO 07/25/16 09:00 07/26/16 09:02 (Pill Splitter) 1 ea UNSCH PRN OTHER 07/25/16 01:45 (Coumadin) 3 mg DAILY@1600 PO 07/25/16 16:00 Hold 07/25/16 15:39 (Nitrostat Sl) 0.3 mg Q5M PRN SL 07/25/16 05:15 (Nitroglycerin 2% Oint) 0.5 inch Q6HR TOPICAL 07/25/16 06:00 07/27/16 00:08 (Apresoline) 50 mg Q6HR PO 07/26/16 18:00 07/27/16 05:36 (Apresoline) 10 mg Q6H PRN PO 07/26/16 16:15 07/26/16 16:54 (Cozaar) 100 mg DAILY PO 07/27/16 09:00 UNV Vital Signs / I&O Vital Signs Date Time Temp Pulse Resp B/P Pulse Ox O2 Delivery O2 Flow Rate FiO2 07/27/16 06:00 72 07/27/16 05:00 72 07/27/16 04:00 77 07/27/16 04:00 98.3 78 18 154/94 96 07/27/16 03:00 77 07/27/16 02:00 72 07/27/16 01:00 86 07/27/16 00:00 98.4 72 18 197/94 95 07/26/16 23:00 71 07/26/16 22:00 72 07/26/16 21:00 88 07/26/16 20:00 77 07/26/16 20:00 98.3 68 18 178/97 97 07/26/16 19:00 77 07/26/16 18:00 80 07/26/16 17:50 151/99 07/26/16 17:00 79 07/26/16 16:45 180/90 07/26/16 16:00 73 07/26/16 15:00 97.6 73 20 180/91 95 07/26/16 15:00 73 07/26/16 14:00 77 07/26/16 13:00 65 07/26/16 12:00 71 07/26/16 11:00 66 07/26/16 11:00 98.3 68 18 165/87 95 07/26/16 10:00 67 07/26/16 09:00 80 I/O 07/26/16 07/26/16 07/26/16 07/27/16 07/27/16 07/27/16 07:00 15:00 23:00 07:00 15:00 23:00 Intake Total 480 ml 640 ml 480 ml Output Total 1250 ml Balance -770 ml 640 ml 480 ml Intake Oral 480 ml 640 ml 480 ml Output Urine Total 1250 ml # Voids 2 3 # Bowel Movements 0 2 0 Physical Exam Morbidly obese, alert Chest Clear CV S1S2 RRR No edema Laboratory Laboratory Tests Test 07/27/16 05:35 White Blood Count 4.7 TH/MM3 Red Blood Count 4.38 MIL/MM3 Hemoglobin 11.6 GM/DL Hematocrit 34.7 % Mean Corpuscular Volume 79.3 FL Mean Corpuscular Hemoglobin 26.4 PG Mean Corpuscular Hemoglobin 33.3 % Concent Red Cell Distribution Width 17.7 % Platelet Count 153 TH/MM3 Mean Platelet Volume 8.2 FL Prothrombin Time 18.8 SEC Prothromb Time International 1.7 RATIO Ratio Sodium Level 140 MEQ/L Potassium Level 4.1 MEQ/L Chloride Level 103 MEQ/L Carbon Dioxide Level 29.2 MEQ/L Anion Gap 8 MEQ/L Blood Urea Nitrogen 25 MG/DL Creatinine 1.38 MG/DL Estimat Glomerular Filtration 64 ML/MIN Rate Random Glucose 314 MG/DL Calcium Level 8.8 MG/DL Troponin I 0.08 NG/ML Assessment and Plan Problem List: (1) Accelerated hypertension Assessment and Plan: Add clonidine low dose (2) Elevated troponin Assessment and Plan: troponin curve flat, no [place] (3) CAD (coronary artery disease) Assessment and Plan: Sx's atypical. With ongoing pain will need cath once INR down and BP controlled Assessment and Plan BP still uncontrolled. Add losartan. Possible cardiac cath tomorrow depending on clinical course Logan Hutson MD Jul 27, 2016 08:04
[2016-07-27] MEDS: LOSARTAN 50 MG TAB PO SCH (08:51)
[2016-07-27] MEDS: INSULIN DETEMIR 100 UNITS/ML VIAL SQ SCH ×2 (08:51→22:01)
[2016-07-27] MEDS: NIFEdipine 60 MG SUSTAINED RELEASE TAB PO SCH (08:51)
[2016-07-27] MEDS: ORPHENADRINE CITRATE 100 MG SUSTAINED RELEASE TAB PO SCH ×2 (08:51→21:59)
[2016-07-27] MEDS: cloNIDine HCL 0.1 MG TAB PO SCH ×2 (08:51→21:59)
[2016-07-27] MEDS: CARVEDILOL 12.5 MG TAB PO SCH ×2 (08:52→22:00)
[2016-07-27] MEDS: ATORVASTATIN 20 MG TAB PO SCH (08:52)
[2016-07-27] MEDS: HYDROCHLOROTHIAZIDE 50 MG TAB PO SCH (08:52)
[2016-07-27] MEDS: ACETAMINOPHEN/HYDROcodone 325 MG/5 MG TAB PO PRN ×2 (08:52→21:59)
[2016-07-27] MEDS: GABAPENTIN 400 MG CAP PO SCH ×3 (08:54→18:36)
[2016-07-27] MEDS: SODIUM CHLORIDE 0.9% FLUSH 5 ML FLUSH FLUSH SCH ×2 (08:54→22:00)
[2016-07-27] MEDS ORDERED: GLUCAGON 1 MG/ML VIAL OTHER PRN (12:15)
[2016-07-27] MEDS ORDERED: DEXTROSE 50% IN WATER 50 ML VIAL(D50) IV PUSH PRN (12:15)
[2016-07-27] MEDS ORDERED: PHYTONADIONE INJ 1 MG/0.5 ML AMP SQ ONE (13:00)
--- NOTE | 2016-07-27 13:55 | HHI.PR ---
Subjective Remarks Follow up on a chest pain patient with increased troponin rule out non-staining , cardiology on board, planning for heart catheter tomorrow if INR improved, patient was on warfarin on presentation INR today is 1.7, I gave 2.5 mg every vitamin K to repeat INR in a.m. Patient still complaining of chest pain of 6 out of 10, atypical for cardiac, history of substance abuse, no fever or chills or short of breath Objective Vitals Vital Signs Date Time Temp Pulse Resp B/P Pulse Ox O2 Delivery O2 Flow Rate FiO2 07/27/16 13:00 66 07/27/16 12:00 122 07/27/16 11:00 58 07/27/16 11:00 98.0 59 18 112/73 92 07/27/16 10:00 67 07/27/16 09:00 67 07/27/16 08:00 72 07/27/16 07:00 98.0 65 18 158/95 96 07/27/16 07:00 70 07/27/16 06:00 72 07/27/16 05:00 72 07/27/16 04:00 77 07/27/16 04:00 98.3 78 18 154/94 96 07/27/16 03:00 77 07/27/16 02:00 72 07/27/16 01:00 86 07/27/16 00:00 98.4 72 18 197/94 95 07/26/16 23:00 71 07/26/16 22:00 72 07/26/16 21:00 88 07/26/16 20:00 77 07/26/16 20:00 98.3 68 18 178/97 97 07/26/16 19:00 77 07/26/16 18:00 80 07/26/16 17:50 151/99 07/26/16 17:00 79 07/26/16 16:45 180/90 07/26/16 16:00 73 07/26/16 15:00 97.6 73 20 180/91 95 07/26/16 15:00 73 07/26/16 14:00 77 I/O 07/26/16 07/26/16 07/26/16 07/27/16 07/27/16 07/27/16 07:00 15:00 23:00 07:00 15:00 23:00 Intake Total 480 ml 640 ml 480 ml Output Total 1250 ml Balance -770 ml 640 ml 480 ml Intake Oral 480 ml 640 ml 480 ml Output Urine Total 1250 ml # Voids 2 3 # Bowel Movements 0 2 0 Result Diagram: 07/27/1653407/27/16534 Objective Remarks GENERAL: This is a well-nourished, well-developed patient, in no apparent distress. SKIN: No rashes, warm and dry HEAD: Atraumatic. Normocephalic. EYES: Pupils equal round and reactive. Extraocular motions intact. No scleral icterus. ENT: Nose without bleeding, or drainage, Airway patent. NECK: Trachea midline. Supple CARDIOVASCULAR: Regular rate and rhythm without murmurs, gallops, or rubs. RESPIRATORY: Fair air entry bilaterally. No wheezes, rales, or rhonchi. GASTROINTESTINAL: Abdomen soft, non-tender, nondistended. Positive bowel sounds MUSCULOSKELETAL: Extremities without clubbing, cyanosis, +1 edema. Pedal pulses appreciated NEUROLOGICAL: Awake and alert. Moves all extremity. Normal speech.no focal neurological deficit A/P Problem List: (1) Chest pain ICD Code: R07.9 Status: Acute (2) Elevated troponin ICD Code: R79.89 Status: Acute (3) HTN (hypertension) ICD Code: I10 Status: Acute (4) History of DVT (deep vein thrombosis) ICD Code: Z86.718 Status: Acute (5) Noncompliance ICD Code: Z91.19 Status: Acute (6) Chronic back pain ICD Code: G89.29 Status: Chronic (7) Subtherapeutic anticoagulation ICD Code: Z51.81 Status: Acute (8) DM (diabetes mellitus) ICD Code: E11.9 Status: Chronic Assessment and Plan 1. Chest Pain with increased troponin rule out non-STEMI: Atypical. Multiple ER presentations in the past for same, 2-3 times per month, per records drug- seeking behavior. Previous Nuclear Stress 05/22/2016 negative for ischemia, low risk. Initial trop 0.07, EKG w/ no acute changes. cardiac enzymes reviewed troponin still. . Resume home ASA, Statin, Coreg. H/o Cocaine Abuse, check U/ a, Urine Drug Screen. Neurology following heart catheter cannot happen today INR is 1.7, patient did not get warfarin yesterday, will give 0.5 mg of vitamin K subcutaneous and repeat INR in a.m., heart catheter once INR acceptable 2. Uncontrolled HTN: On multiple agents antihypertensive medication BP on arrival 221/102, HR 70 sH/O Non-compliant w/ meds. Resume home medications. Procardia, Coreg, lisinopril, nitroglycerin patch, hydrochlorothiazide, hydralazine which will increase to a 6 hours and will add IVF as needed 3. DM: Sliding scale w/ Accu-Cheks. Resume home Lantus. 4. H/o DVT: On Coumadin, non-compliant w/ subtherapeutic INR of 1.1. On Coumadin 13mg qd. Hold Coumadin for heart catheter, very low dose vitamin K was given above 5. Chronic Pain: multiple ER presentations for pain, h/o drug seeking behavior. Resume home medications. 6. DVT Prophylaxis: Coumadin Lorna Rodríguez MD Jul 27, 2016 13:55
[2016-07-27] MEDS: WARFARIN SOD 10 MG TAB PO SCH ×2 (16:00→16:39)
[2016-07-27] MEDS: INSULIN NovoLIN REGULAR SUPPLEMENTAL SCALE SQ SCH ×2 (16:39→22:06)
[2016-07-27] MEDS: ZOLPIDEM TARTRATE 10 MG TAB PO PRN (23:57)
[2016-07-28] VITALS (23 sets, daily range): BP systolic 112–156; BP diastolic 57–98; PULSE 56–85; RESP 14–20; TEMP 97.7–98.4; O2SAT 92–99
[2016-07-28] MEDS: NITROGLYCERIN 2% OINT 1 GM PACKET TOPICAL SCH ×3 (05:21→17:51)
[2016-07-28] MEDS: hydrALAZINE HCL 50 MG TAB PO SCH ×3 (05:21→17:51)
[2016-07-28] MEDS: MORPHINE SULFATE 4 MG/ML INJ IV PRN ×5 (05:22→21:37)
[2016-07-28 06:39] LABS: INTERNATIONAL NORMALIZED RATIO 1.2 RATIO; PROTHROMBIN TIME - PATIENT 13.7 SEC (9.8-11.6)
[2016-07-28] MEDS: ACETAMINOPHEN/HYDROcodone 325 MG/5 MG TAB PO PRN (06:50)
[2016-07-28 07:07] LABS: BICARBONATE 29.4 MEQ/L (21.0-32.0); POTASSIUM 3.9 MEQ/L (3.5-5.1)
--- NOTE | 2016-07-28 08:12 | EC ---
Study Study Date:07/27/2016 STUDY CONCLUSIONS SUMMARY - Left ventricle: The cavity size was normal. Wall thickness was increased in a pattern of mild LVH. There was concentric hypertrophy. Systolic function was normal. The estimated ejection fraction was in the range of 60% to 65%. Wall motion was normal; there were no regional wall motion abnormalities. - Aortic valve: Valve area: 2.68cm^2 (Vmax). - Left atrium: The atrium was mildly dilated. If LV function is below 40, please consider prescribing an ACEI or ARB or document rationale for non-use. PROCEDURE DATA STUDY STATUS: Elective. Procedure: Transthoracic echocardiography. Image quality was good. Scanning was performed from the parasternal, apical, and subcostal acoustic windows. Study completion: The patient tolerated the procedure well. Transthoracic echocardiography. M-mode, complete 2D, complete spectral Doppler, and color Doppler. Height: Height: 72in. Weight: Weight: 263.5lb. Body mass index: BMI: 35.8kg/m^2. Body surface area: BSA: 2.4m^2. Patient status: Inpatient. CARDIAC ANATOMY LEFT VENTRICLE: The cavity size was normal. Wall thickness was increased in a pattern of mild LVH. There was concentric hypertrophy. Systolic function was normal. The estimated ejection fraction was in the range of 60% to 65%. Wall motion was normal; there were no regional wall motion abnormalities. AORTIC VALVE: Trileaflet; mildly thickened leaflets. Doppler: There was no stenosis. No significant regurgitation. Valve area: 2.68cm^2 (Vmax). Indexed valve area: 1.12cm^2/m^2 (Vmax). MITRAL VALVE: The valve appears to be grossly normal. Doppler: There was no evidence for stenosis. Trace regurgitation. Peak gradient: 4mm Hg (D). LEFT ATRIUM: The atrium was mildly dilated. RIGHT VENTRICLE: Poorly visualized. PULMONIC VALVE: Not well visualized. Doppler: There was no evidence for stenosis. No significant regurgitation. TRICUSPID VALVE: The valve appears to be grossly normal. Doppler: There was no evidence for stenosis. Trace to mild regurgitation. Patient weight: 263.5lb _Ejection fraction:_ 65-75% _Fractional shortening:_ 32% up to 5Kg 5-11.5Kg 11.6-22.9Kg 23-45Kg 45-57Kg Aortic Root 7-13 <17 13-22 17-27 17-27 LA diam 6-13 <23 24-38 33-47 37-40 RVID 10-17 7-15 7-15 7-18 8-17 LVIDd 12-22 <32 24-38 33-47 37-40 LVPW 2-4 3-6 5-7 6-8 7-8 IVS 2-4 3-6 5-7 6-8 7-8 BASIC MEASUREMENTS ADULT NORMAL Left ventricle LV internal dimension, ED, chordal 50.2 mm 43-52 level, PLAX LV internal dimension, ES, chordal 32.9 mm 23-38 level, PLAX Fractional shortening, chordal level, 34 % >29 PLAX LV posterior wall thickness, ED 10.5 mm IVS/LVPW ratio, ED 1.13 <1.3 Ventricular septum Septal thickness, ED 11.9 mm Aortic valve Leaflet separation 20 mm 15-26 BASIC MEASUREMENTS ADULT NORMAL Aortic valve Leaflet separation 20 mm 15-26 Aorta Root diameter, ED 31 mm 20-37 Left atrium Anterior-posterior dimension, ES *43 mm 19-40 Anterior-posterior dimension index, ES 1.79 cm/m^2 <2.2 LA/aortic root ratio 1.39 DOPPLER MEASUREMENTS ADULT NORMAL Main pulmonary artery Pressure, S 25 mm Hg =30 Aortic valve Peak velocity, S 130 cm/s Valve area, Vmax 2.68 cm^2 Valve area index, Vmax 1.12 cm^2/m^2 Mitral valve Peak E-wave velocity 103 cm/s Peak A-wave velocity 90.3 cm/s Deceleration time *268 ms 150-230 Peak gradient, D 4 mm Hg Peak E/A ratio 1.1 Maximal regurgitant velocity 307 cm/s Tricuspid valve Regurgitant peak velocity 218 cm/s Peak RV-RA gradient, S 19 mm Hg Systemic veins Estimated CVP 10 mm Hg Right ventricle RV pressure, S 29 mm Hg <30 Pulmonic valve Peak velocity, S 105 cm/s LEGEND: Mean values are shown as u=mean value. Asterisk (*) sherman values outside specified normal range. Prepared and signed by Dilip Soriano [id number]
[2016-07-28] MEDS: GABAPENTIN 400 MG CAP PO SCH ×3 (10:00→17:51)
[2016-07-28] MEDS: LOSARTAN 50 MG TAB PO SCH (10:00)
[2016-07-28] MEDS: ATORVASTATIN 20 MG TAB PO SCH (10:00)
[2016-07-28] MEDS: HYDROCHLOROTHIAZIDE 50 MG TAB PO SCH (10:00)
[2016-07-28] MEDS: cloNIDine HCL 0.1 MG TAB PO SCH ×2 (10:01→21:47)
[2016-07-28] MEDS: ORPHENADRINE CITRATE 100 MG SUSTAINED RELEASE TAB PO SCH ×2 (10:01→21:47)
[2016-07-28] MEDS: NIFEdipine 60 MG SUSTAINED RELEASE TAB PO SCH (10:01)
[2016-07-28] MEDS: CARVEDILOL 12.5 MG TAB PO SCH ×2 (10:01→21:47)
[2016-07-28] MEDS: INSULIN DETEMIR 100 UNITS/ML VIAL SQ SCH ×2 (10:01→21:47)
[2016-07-28] MEDS: SODIUM CHLORIDE 0.9% FLUSH 5 ML FLUSH FLUSH SCH (10:02)
--- NOTE | 2016-07-28 10:05 | HHI.PR ---
Subjective Remarks Follow for chest pain Patient still having chest pain, mild, about 6/10, nonradiating, no nausea or vomiting. INR is better. Blood pressure is better. Objective Vitals Vital Signs Date Time Temp Pulse Resp B/P Pulse Ox O2 Delivery O2 Flow Rate FiO2 07/28/16 07:00 98.3 62 18 117/57 99 07/28/16 07:00 69 07/28/16 06:00 79 07/28/16 05:00 67 07/28/16 05:00 98.3 72 14 156/98 92 07/28/16 04:00 82 07/28/16 03:00 67 07/28/16 02:00 67 07/28/16 01:00 66 07/28/16 00:00 75 07/27/16 23:00 98.3 73 16 164/93 94 07/27/16 23:00 67 07/27/16 22:00 66 07/27/16 20:00 63 07/27/16 19:00 98.6 66 16 165/85 95 07/27/16 18:00 75 07/27/16 16:00 77 07/27/16 15:00 69 07/27/16 15:00 97.8 60 18 139/85 93 07/27/16 14:00 62 07/27/16 13:00 66 07/27/16 12:00 122 07/27/16 11:00 58 07/27/16 11:00 98.0 59 18 112/73 92 I/O 07/27/16 07/27/16 07/27/16 07/28/16 07/28/16 07/28/16 07:00 15:00 23:00 07:00 15:00 23:00 Intake Total 480 ml 1440 ml 240 ml Balance 480 ml 1440 ml 240 ml Intake Oral 480 ml 1440 ml 240 ml # Voids 3 3 3 # Bowel Movements 0 0 Result Diagram: 07/27/16 0535 07/28/16 0550 Objective Remarks Not in distress, well-nourished, looks stated age PERRL, pink conjunctiva without injection, anicteric Nose without bleeding, airway patent, oropharynx clear Supple neck, no masses or thyromegaly, trachea midline Normal rate and regular rhythm, no murmurs gallops or rubs appreciated. Clear to auscultation and symmetric bilaterally, normal respiratory effort. Normal bowel sounds, soft, non-tender, nondistended, no guarding. Extremities without clubbing, cyanosis, trace edema. No rash of generalized distribution. Skin is warm and dry. AAO x3, no cranial nerve deficits, moves all 4 extremities, no focal neurologic deficits Normal mood, appropriate affect A/P Problem List: (1) Chest pain ICD Code: R07.9 Status: Acute (2) Elevated troponin ICD Code: R79.89 Status: Acute (3) HTN (hypertension) ICD Code: I10 Status: Acute (4) History of DVT (deep vein thrombosis) ICD Code: Z86.718 Status: Acute (5) Noncompliance ICD Code: Z91.19 Status: Acute (6) Chronic back pain ICD Code: G89.29 Status: Chronic (7) Subtherapeutic anticoagulation ICD Code: Z51.81 Status: Acute (8) DM (diabetes mellitus) ICD Code: E11.9 Status: Chronic Assessment and Plan This is a 61 year-old male with history of diabetes presented with chest pain non-STEMI: Atypical. Troponin is flat however with ongoing chest pain, cardiology and board, for cardiac catheterization today, INR is better and blood pressure is better. Previous Nuclear Stress 05/22/2016 negative for ischemia, low risk. Initial trop 0.07, EKG w/ no acute changes. cardiac enzymes reviewed troponin still. Continue home ASA, Statin, Coreg. H/o Cocaine Abuse, check U/a, drug screen positive for opiates. Follow-up echocardiogram. Uncontrolled HTN: Blood pressure better, continue Procardia, clonidine, Coreg, lisinopril, losartan added, nitroglycerin patch, hydrochlorothiazide, hydralazine DM: Sliding scale w/ Accu-Cheks. Resume home Lantus. Likely chronic kidney disease stage IV-monitor creatinine, check BMP tomorrow, IVF today. H/o DVT: On Coumadin, non-compliant w/ subtherapeutic INR of 1.1. On Coumadin 13mg qd. Hold Coumadin for heart catheter, very low dose vitamin K was given Chronic Pain: multiple ER presentations for pain, h/o drug seeking behavior. Resume home medications. DVT Prophylaxis: Coumadin Zaheer Peter MD Jul 28, 2016 10:05
[2016-07-28] MEDS: SODIUM CHLOR 0.9% 1000 ML INJ 1,000 ML IV SCH ×2 (10:50→22:35)
[2016-07-28] MEDS: INSULIN NovoLIN REGULAR SUPPLEMENTAL SCALE SQ SCH ×4 (11:00→21:00)
[2016-07-28] MEDS ORDERED: HEPARIN-NS/PF INJ 500 ML ONE (14:54)
[2016-07-28] MEDS ORDERED: MIDAZOLAM HCL 2 MG/2 ML VIAL ONE (15:02)
[2016-07-28] MEDS ORDERED: HEPARIN SODIUM - IV 10,000 UNITS/10 ML VIAL ONE ×2 (15:02→15:54)
[2016-07-28] MEDS ORDERED: VERAPAMIL HCL 5 MG/2 ML VIAL ONE (15:02)
[2016-07-28] MEDS ORDERED: IOHEXOL 350 MG/ML 50 ML BTL (for Cath Lab) OTHER ONE (15:22)
[2016-07-28] MEDS ORDERED: NALOXONE HCL 0.4 MG/ML AMP ONE (15:46)
[2016-07-28] MEDS ORDERED: CLOPIDOGREL 300 MG TAB ONE (16:09)
[2016-07-28] MEDS ORDERED: ASPIRIN 325 MG TAB ONE (16:10)
[2016-07-28] MEDS ORDERED: SODIUM CHLORIDE 0.9% FLUSH 5 ML FLUSH IVF PRN (16:30)
[2016-07-28] MEDS ORDERED: MISC INFORMATION XX ONE (16:30)
[2016-07-28] MEDS ORDERED: ACETAMINOPHEN 325 MG TAB PO PRN (16:30)
[2016-07-28] MEDS ORDERED: CLOPIDOGREL 300 MG TAB PO ONE (16:30)
--- NOTE | 2016-07-28 17:44 | MA ---
cc: BELLE FLORES DATE: 07/28/2016 DATE OF 05/27/1965 PROCEDURES PERFORMED 1. Left heart catheterization. 2. LV hemodynamics. 3. Successful PCI/JG to mid RCA. INDICATIONS Non-STEMI, hypertensive heart disease, chest pain. DESCRIPTION OF PROCEDURE Consent signed. The patient was brought into the Cardiac Dermatopathologist in a fasting state. Using 1% lidocaine for local anesthesia and a micropuncture kit, a 6- Ukrainian sheath was inserted into the right radial artery. Antispasmodic cocktail given. Elective right and left coronary angiography was performed with a JR4 and a JL4 diagnostic catheter. Angiography was taken in multiple views. The LV was cross with the JR diagnostic catheter follwed by measurement of hemodynamics and pullback. There was a significant 80% lesion on the mid RCA that we decided to intervene given the patient's symptoms and presentation. Heparin was given for IV anticoagulation. The right coronary artery was engaged with a AL 0.75 guide. The right coronary artery was wired with a Runthrough wire which was anchored distally. The lesion was predilated with 2.5 x 12 balloon followed by insertion and deployment of a 3.0 x 15 drug-eluting stent. The stent was postdilated to high atmosphere with a 3.5 x 12 noncompliant balloon. Final angiographic views revealed good stent apposition and expansion with IVY III flow. The right radial access site was closed with a TR band. Patient was loaded with 600mg of Plavix was after the procedure. Estimated blood loss less than 50 cc. Total contrast used 45 cc. RESULTS Left Ventricle: The left ventricular pressure was 125/43 with an LVEDP of 23mmHg. The aortic pressure was 116/69 with a mean of 87. There was no gradient from pullback from the left ventricle to the aorta. 1. The right coronary artery is a dominant vessel. It has minimal luminal irregularities throughout. It has patent stenting in the midportion. It has an 100% occluded stump on the RV branch, and right after that RV branch there is an 80% eccentric lesion. 2. The left main is patent with nonobstructive CAD. 3. The LAD is a transapical vessel. It is patent with nonobstructive CAD. D1 is also patent with IVY III flow and nonobstructive coronary artery disease. 4. The left circumflex artery has minimal luminal irregularities. It has a prominent OM1 which trifurcates and is patent. The AV groove circ is also patent, it has a 60% lesion distally though. CONCLUSION 1. Successful PCI to mid right coronary artery. 2. Hypertensive heart disease. 3. Elevated LVEDP. RECOMMENDATIONS 1. DAPT with aspirin and plavix 2. Aggressive medical management for CAD and hypertensive heart disease. 3. Post cath IV hydration. 4. Sleep apnea evaluation Case discussed with Dr. Peter and Dr. Hutson MD STEPHEN Brewster/ALLISON /4:16 PM /5:10 PM [id number]
[2016-07-28] MEDS: WARFARIN SOD 10 MG TAB PO SCH (17:52)
[2016-07-28] MEDS: SODIUM CHLORIDE 0.9% FLUSH 5 ML FLUSH IVF SCH (21:00)
[2016-07-29] VITALS (14 sets, daily range): BP systolic 110–168; BP diastolic 68–79; PULSE 60–95; RESP 18–19; TEMP 98.6–98.7; O2SAT 97
[2016-07-29] MEDS: ZOLPIDEM TARTRATE 10 MG TAB PO PRN (01:09)
[2016-07-29] MEDS: hydrALAZINE HCL 50 MG TAB PO SCH ×3 (01:10→12:19)
[2016-07-29] MEDS: NITROGLYCERIN 2% OINT 1 GM PACKET TOPICAL SCH ×3 (01:10→12:00)
[2016-07-29] MEDS: MORPHINE SULFATE 4 MG/ML INJ IV PRN ×3 (01:10→08:29)
[2016-07-29] MEDS: SODIUM CHLOR 0.9% 1000 ML INJ 1,000 ML IV SCH ×2 (05:15→11:55)
[2016-07-29] MEDS: INSULIN NovoLIN REGULAR SUPPLEMENTAL SCALE SQ SCH ×2 (06:16→12:27)
--- NOTE | 2016-07-29 06:53 | HHI.PR ---
Subjective Remarks Breathing is better, no chest pain, ABG showed hypoxia though. No overnight events. Objective Vitals Vital Signs Date Time Temp Pulse Resp B/P Pulse Ox O2 Delivery O2 Flow Rate FiO2 07/28/16 23:00 98.4 58 18 146/71 96 07/28/16 19:00 98.2 65 18 128/68 97 07/28/16 18:00 65 07/28/16 17:00 67 07/28/16 16:30 58 07/28/16 16:30 98.0 58 20 141/92 98 07/28/16 14:00 59 07/28/16 13:00 58 07/28/16 12:00 66 07/28/16 11:00 56 07/28/16 11:00 97.7 58 20 112/68 99 07/28/16 10:00 59 07/28/16 09:00 58 07/28/16 08:00 63 07/28/16 07:00 98.3 62 18 117/57 99 07/28/16 07:00 69 I/O 07/28/16 07/28/16 07/28/16 07/29/16 07/29/16 07/29/16 07:00 15:00 23:00 07:00 15:00 23:00 Intake Total 240 ml 400 ml Balance 240 ml 400 ml Intake Oral 240 ml 400 ml # Voids 3 4 Result Diagram: 07/27/16 0535 07/28/16 0550 Objective Remarks Not in distress, well-nourished, looks stated age, appears comfortable, does not appear short of breath. PERRL, pink conjunctiva without injection, anicteric Nose without bleeding, airway patent, oropharynx clear Supple neck, no masses or thyromegaly, trachea midline Normal rate and regular rhythm, no murmurs gallops or rubs appreciated. Clear to auscultation and symmetric bilaterally, normal respiratory effort. Normal bowel sounds, soft, non-tender, nondistended, no guarding. Extremities without clubbing, cyanosis, trace edema. No rash of generalized distribution. Skin is warm and dry. AAO x3, no cranial nerve deficits, moves all 4 extremities, no focal neurologic deficits Normal mood, appropriate affect Procedures 07/28/16 1. Successful PCI to mid right coronary artery. 2. Hypertensive heart disease. 3. Elevated LVEDP23 A/P Problem List: (1) Chest pain ICD Code: R07.9 Status: Acute (2) Elevated troponin ICD Code: R79.89 Status: Acute (3) HTN (hypertension) ICD Code: I10 Status: Acute (4) History of DVT (deep vein thrombosis) ICD Code: Z86.718 Status: Acute (5) Noncompliance ICD Code: Z91.19 Status: Acute (6) Chronic back pain ICD Code: G89.29 Status: Chronic (7) Subtherapeutic anticoagulation ICD Code: Z51.81 Status: Acute (8) DM (diabetes mellitus) ICD Code: E11.9 Status: Chronic Assessment and Plan This is a 61 year-old male with history of diabetes presented with chest pain non-STEMI: Atypical. Troponin is flat however with ongoing chest pain, cardiology and board, blood pressure better. Previous Nuclear Stress 05/22/2016 negative for ischemia, low risk. Initial trop 0.07, EKG w/ no acute changes. cardiac enzymes reviewed troponin still. Continue home ASA, Statin, Coreg. H/ o Cocaine Abuse, check U/a, drug screen positive for opiates. Echocardiogram showed ejection fraction of 60-65%. Status post cardiac catheterization , successful PCI to mid right coronary artery. Left ventricular and diastolic dysfunction, pressure 23. At risk for CHF. Cleared by cardiology. Uncontrolled HTN: Blood pressure better, continue Procardia, clonidine, Coreg, lisinopril, losartan, hydrochlorothiazide, hydralazine DM: Sliding scale w/ Accu-Cheks. Resume home Lantus. Likely chronic kidney disease stage IV-monitor creatinine, check BMP tomorrow, IVF today. H/o DVT: On Coumadin, non-compliant w/ subtherapeutic INR of 1.1. On Coumadin 13mg qd. Hold Coumadin for heart catheter, very low dose vitamin K was given Chronic Pain: multiple ER presentations for pain, h/o drug seeking behavior. Resume home medications. 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 Might need home oxygen and discharge, check respiratory walk fit test. DVT Prophylaxis: Coumadin Discharge Planning Discharge today after tests are done. Zaheer Peter MD Jul 29, 2016 06:53
--- NOTE | 2016-07-29 08:16 | MB ---
cc: JEAN CARLOS EVANGELISTA M.D. DATE OF CONSULTATION 07/29/2016 REASON FOR CONSULTATION Obstructive sleep apnea HISTORY OF PRESENT ILLNESS Mr. William is a 61-year-old -[place] male who has a history obstructive sleep apnea years ago, has been given C-PAP, however it was discontinued because of noncompliance. Presently, he does not received therapy. He snores loudly while sleeping, very tired and sleepy in the daytime and has witnessed apneas per his who is at his bedside. The patient hospitalized for chest pain and coronary artery disease post stent placement. The chest pain resolved at present. PAST MEDICAL HISTORY 1. Coronary artery disease and obstructive sleep apnea 2. Peripheral arterial disease 3. Aortic aneurysm post repair 4. Previous cholecystectomy 5. Hip surgery 6. Has a history of hypertension. 7. Sickle cell trait 8. Previous DVT on Coumadin therapy. 9. Diabetes 10. Peripheral neuropathy SOCIAL HISTORY Used to smoke, has not smoked since 2004. Does not drink any alcohol. No TB or industrial exposure. FAMILY HISTORY Positive for diabetes and heart disease. ALLERGIES DAWIT INHIBITORS, CLONIDINE, AND DILAUDID. REVIEW OF SYSTEMS A 12-point review of systems as per HPI and past history otherwise negative. PHYSICAL EXAM On exam, the patient is alert. VITAL SIGNS: Temperature 98.7, pulse 65, respiration 18, blood pressure 126/70, oxygen saturation 97% on room air. HEENT: Exam unremarkable. Eyes without icterus. NECK: Without adenopathy, thyroid enlargement, central trachea. CHEST: No dullness to percussion, clear to auscultation. CARDIAC: PMI distant. S1-S2 audible. No murmur or rub. ABDOMEN: Lax, bowel sounds audible. EXTREMITIES: No clubbing, cyanosis or edema. LABORATORY DATA Chest x-ray, no acute infiltrate seen. White count 4.7, hemoglobin 11.6, hematocrit 34. Sodium 142, potassium 4.0, BUN 28, creatinine 1.4. IMPRESSION 1. Obstructive sleep apnea needs further evaluation and Treatment. 2. Coronary artery disease 3. Hypertension 4. Diabetes mellitus 5. DVT by history 6. Chronic renal insufficiency PLAN We will check baseline thyroid function studies, pulmonary function and arterial blood gas. We will be schedule for polysomnographic evaluation post discharge. This has been discussed with the patient and his , who accompanies him, in full detail. They are agreeable to proceed. I do thank you for asking me to partake in Mr. William's care. Jean Carlos Evangelista MD WWW/KVNG /7:56 AM /8:05 AM
[2016-07-29] MEDS: INSULIN DETEMIR 100 UNITS/ML VIAL SQ SCH (08:27)
[2016-07-29] MEDS: cloNIDine HCL 0.1 MG TAB PO SCH (08:28)
[2016-07-29] MEDS: LOSARTAN 50 MG TAB PO SCH (08:28)
[2016-07-29] MEDS: CARVEDILOL 12.5 MG TAB PO SCH (08:28)
[2016-07-29] MEDS: GABAPENTIN 400 MG CAP PO SCH ×2 (08:28→12:19)
[2016-07-29] MEDS: SODIUM CHLORIDE 0.9% FLUSH 5 ML FLUSH IVF SCH (08:28)
[2016-07-29] MEDS ORDERED: NIFEdipine 90 MG SUSTAINED RELEASE TAB PO SCH (09:00)
[2016-07-29] MEDS ORDERED: ATORVASTATIN 20 MG TAB PO SCH (09:00)
[2016-07-29] MEDS ORDERED: ATORVASTATIN 40 MG TAB PO SCH (09:00)
[2016-07-29] MEDS ORDERED: ASPIRIN 81 MG CHEW TAB PO SCH (09:00)
[2016-07-29] MEDS ORDERED: NIFEdipine 60 MG SUSTAINED RELEASE TAB PO SCH (09:00)
[2016-07-29] MEDS ORDERED: CLOPIDOGREL 75 MG TAB PO SCH (09:00)
--- NOTE | 2016-07-29 09:12 | PD.CARD.PN ---
Subjective Subjective Remarks States chest feels same since RCA stent - doubt sx's are due to ischemia Objective Medications Current Medications Medications (Trade) Dose Ordered Sig/Conchita Route Start Time Stop Time Status Last Admin (Zofran Inj) 4 mg Q6H PRN IVP 07/25/16 01:30 (Dulcolax Supp) 10 mg DAILY PRN LA 07/25/16 01:30 (Tylenol) 650 mg Q6H PRN PO 07/25/16 01:30 ([place] 5-325 Mg) 1 tab Q4H PRN PO 07/25/16 01:30 07/28/16 06:50 (Morphine Inj) 4 mg Q3H PRN IV 07/25/16 01:30 07/29/16 08:29 (Coreg) 25 mg BID PO 07/25/16 09:00 07/29/16 08:28 (Neurontin) 800 mg TID PO 07/25/16 09:00 07/29/16 08:28 (Hydrodiuril) 50 mg DAILY PO 07/25/16 09:00 07/28/16 10:00 (Levemir Inj) 60 units BID SQ 07/25/16 09:00 07/29/16 08:27 (Norflex Cr) 100 mg BID PO 07/25/16 09:00 07/28/16 21:47 (Coumadin) 10 mg DAILY@1600 PO 07/25/16 16:00 07/28/16 17:52 (Ambien) 10 mg HS PRN PO 07/25/16 01:30 07/29/16 01:09 (Pill Splitter) 1 ea UNSCH PRN OTHER 07/25/16 01:45 (Coumadin) 3 mg DAILY@1600 PO 07/25/16 16:00 Hold 07/25/16 15:39 (Nitrostat Sl) 0.3 mg Q5M PRN SL 07/25/16 05:15 (Nitroglycerin 2% Oint) 0.5 inch Q6HR TOPICAL 07/25/16 06:00 07/29/16 05:49 (Apresoline) 50 mg Q6HR PO 07/26/16 18:00 07/29/16 05:49 (Apresoline) 10 mg Q6H PRN PO 07/26/16 16:15 07/26/16 16:54 (Cozaar) 100 mg DAILY PO 07/27/16 09:00 07/29/16 08:28 (Catapres) 0.1 mg Q12HR PO 07/27/16 09:00 07/29/16 08:28 (D50w (Vial) Inj) 25 ml UNSCH PRN IV PUSH 07/27/16 12:15 Glucagon 1 mg 1 mg UNSCH PRN OTHER 07/27/16 12:15 (NS 1000 ml Inj) 1,000 ml @ 150 mls/hr Q6H40M IV 07/28/16 09:15 07/30/16 09:14 07/28/16 22:35 (Tylenol) 325 mg Q4H PRN PO 07/28/16 16:30 (Plavix) 75 mg DAILY PO 07/29/16 09:00 07/29/16 08:28 (NS Flush) 2 ml UNSCH PRN IVF 07/28/16 16:30 (NS Flush) 2 ml BID IVF 07/28/16 21:00 07/29/16 08:28 (Lipitor) 80 mg DAILY PO 07/29/16 09:00 07/29/16 08:27 (Procardia Xl) 90 mg DAILY PO 07/29/16 09:00 07/29/16 08:28 (Aspirin Chew) 81 mg DAILY PO 07/29/16 09:00 Vital Signs / I&O Vital Signs Date Time Temp Pulse Resp B/P Pulse Ox O2 Delivery O2 Flow Rate FiO2 07/29/16 09:05 80 07/29/16 08:00 83 07/29/16 07:00 75 07/29/16 07:00 98.6 73 19 168/79 97 07/29/16 06:00 72 07/29/16 05:00 95 07/29/16 04:00 74 07/29/16 03:00 70 07/29/16 03:00 98.7 65 18 128/68 97 07/29/16 02:00 66 07/29/16 01:00 60 07/29/16 00:00 66 07/28/16 23:00 64 07/28/16 23:00 98.4 58 18 146/71 96 07/28/16 22:00 66 07/28/16 21:00 64 07/28/16 20:00 85 07/28/16 19:00 98.2 65 18 128/68 97 07/28/16 19:00 64 07/28/16 18:00 65 07/28/16 17:00 67 07/28/16 16:30 58 07/28/16 16:30 98.0 58 20 141/92 98 07/28/16 14:00 59 07/28/16 13:00 58 07/28/16 12:00 66 07/28/16 11:00 56 07/28/16 11:00 97.7 58 20 112/68 99 07/28/16 10:00 59 I/O 07/28/16 07/28/16 07/28/16 07/29/16 07/29/16 07/29/16 07:00 15:00 23:00 07:00 15:00 23:00 Intake Total 240 ml 400 ml 2195 ml Output Total 2125 ml Balance 240 ml 400 ml 70 ml Intake Oral 240 ml 400 ml 820 ml IV Total 1375 ml Output Urine Total 2125 ml # Voids 3 4 Physical Exam Morbidly obese, alert Chest Clear CV S1S2 RRR No edema Right wrist OK Laboratory Laboratory Tests Test 07/29/16 06:29 Sodium Level 142 MEQ/L Potassium Level 4.0 MEQ/L Chloride Level 108 MEQ/L Carbon Dioxide Level 28.0 MEQ/L Anion Gap 6 MEQ/L Blood Urea Nitrogen 28 MG/DL Creatinine 1.45 MG/DL Estimat Glomerular Filtration 60 ML/MIN Rate Random Glucose 211 MG/DL Calcium Level 7.9 MG/DL Assessment and Plan Problem List: (1) Accelerated hypertension Assessment and Plan: Very complex HTN regimen/ continue (2) Elevated troponin (3) CAD (coronary artery disease) (4) Stented coronary artery Assessment and Plan: Continue ASA and Clopidogrel. Would not restart warfarin Assessment and Plan I'm not sure why still has chest discomfort. RCA stented - good result. No other stenoses. Has reached max medical improvement. Renal function is stable. OK with me to DC home. F/u Dr. Borges 1-2 weeks. Logan Hutson MD Jul 29, 2016 09:11
[2016-07-29] MEDS ORDERED: CLON.1 PO (10:30)
[2016-07-29] MEDS ORDERED: NIFE90TA2 PO (10:30)
[2016-07-29] MEDS ORDERED: COZA50TA PO (10:30)
[2016-07-29] MEDS ORDERED: HYDR50TA15 PO (10:30)
[2016-07-29] MEDS ORDERED: PLAV75TA29 PO (10:30)
[2016-07-29] MEDS ORDERED: Aspirin Chew PO (10:30)
[2016-07-29] MEDS ORDERED: LIPI40TA PO (10:30)
[2016-07-29 10:59] LABS: FREE T3 1.62 PG/ML (2.18-3.98); FREE T4 0.72 NG/DL (0.76-1.46)
[2016-07-29 11:15] LABS: BLOOD GAS BASE EXCESS -0.2 mmol/L (-2-2); BLOOD GAS CARBOXYHEMOGLOBIN 1.6 % (0-4); BLOOD GAS HCO3 24 mmol/L (22-26); BLOOD GAS METHEMOGLOBIN 1.5 % (0-2); BLOOD GAS O2 HGB SATURATION 89 % (90-100); BLOOD GAS OXYGEN CONTENT 14.1 Vol % (12.0-20.0); BLOOD GAS PCO2 42 mmHg (38-42); BLOOD GAS PO2 64 mmHg (61-120); BLOOD GAS TOTAL HGB 11.2 G/DL (12.0-16.0); TEMP CORR TO 98.6
[2016-07-29 11:18] LABS: CRITICAL VALUE YES; DRAW SITE LT RADIAL; FIO2 21 %; NUMBER OF ARTERIAL PUNCTURES 1; STAT NO; ULNAR PULSE PRESENT
[2016-07-29] MEDS ORDERED: OXYGENTANK NAS.CANULA (11:29)
--- NOTE | 2016-07-29 11:29 | HHI.DS ---
Discharge Summary Admission Date Jul 25, 2016 at 01:16 Discharge Date: Jul 29, 2016 Admitting Diagnosis Positive Troponin (1) Chest pain ICD Code: R07.9 Diagnosis: Principal (2) Elevated troponin ICD Code: R79.89 Diagnosis: Secondary (3) HTN (hypertension) ICD Code: I10 Diagnosis: Secondary (4) History of DVT (deep vein thrombosis) ICD Code: Z86.718 Diagnosis: Secondary (5) Noncompliance ICD Code: Z91.19 Diagnosis: Secondary (6) Chronic back pain ICD Code: G89.29 Diagnosis: Secondary (7) Subtherapeutic anticoagulation ICD Code: Z51.81 Diagnosis: Secondary (8) DM (diabetes mellitus) ICD Code: E11.9 Diagnosis: Secondary Procedures 07/28/16 1. Successful PCI to mid right coronary artery. 2. Hypertensive heart disease. 3. Elevated LVEDP23 Brief History - From Admission This is a 61 year male with a PMH of HTN, CAD, DM, h/o DVT on Coumadin, Sickle Cell Train, Non-Compliance and Chronic Pain who came to the ER w/ complaints of chest pain starting earlier today. Pt has had multiple presentations to ER in the past for similar symptoms, approx 2-3 times per month. Per records, pt w/ drug-seeking behavior. On this occasion, states pain began acutely. No SOB. Follows w/ Dr. Borges as outpatient, upcoming appt on 08/03/16. Previous admission in 05/2016 for same, s/p Nuclear Stress 05/22/16 negative for ischemia and low risk. On arrival, BP 221/102, HR 70, O2 sat 96% on room air, Afebrile. S/p Hydralazine 10mg IV in ER. BP currently 180/89, HR 62. CBC unremarkable. Creatinine 1.61, producing 1.63 on 07/01/16. Troponin 0.07. EKG with no acute changes. INR subtherapeutic at 1.1. CXR w/ no acute findings. V/Q Scan w/ low probability for PE. CBC/BMP: 07/27/16 0535 07/29/16 0629 Significant Findings Laboratory Tests Test 07/27/16 07/28/16 07/29/16 07/29/16 05:35 05:50 06:29 11:10 Red Blood Count 4.38 MIL/MM3 (4.50-5.90) Hemoglobin 11.6 GM/DL (13.0-17.0) Hematocrit 34.7 % (39.0-51.0) Mean Corpuscular Volume 79.3 FL (80.0-100.0) Mean Corpuscular Hemoglobin 26.4 PG (27.0-34.0) Red Cell Distribution Width 17.7 % (11.6-17.2) Prothrombin Time 18.8 SEC 13.7 SEC (9.8-11.6) (9.8-11.6) Blood Urea Nitrogen 25 MG/DL (7-18) 31 MG/DL (7-18) 28 MG/DL (7-18) Creatinine 1.38 MG/DL 1.55 MG/DL 1.45 MG/DL (0.60-1.30) (0.60-1.30) (0.60-1.30) Estimat Glomerular Filtration 64 ML/MIN (>89) 56 ML/MIN (>89) 60 ML/MIN (>89) Rate Random Glucose 314 MG/DL 188 MG/DL 211 MG/DL (74-106) (74-106) (74-106) Troponin I 0.08 NG/ML (0.02-0.05) Chloride Level 108 MEQ/L (98-107) Calcium Level 7.9 MG/DL (8.5-10.1) Free Thyroxine 0.72 NG/DL (0.76-1.46) Free Triiodothyronine (T3) 1.62 PG/ML pg/dL (2.18-3.98) Blood Gas Oxygen Saturation 89 % (90-100) Blood Gas Hemoglobin 11.2 G/DL (12.0-16.0) PE at Discharge Not in distress, well-nourished, looks stated age PERRL, pink conjunctiva without injection, anicteric Nose without bleeding, airway patent, oropharynx clear Supple neck, no masses or thyromegaly, trachea midline Normal rate and regular rhythm, no murmurs gallops or rubs appreciated. Clear to auscultation and symmetric bilaterally, normal respiratory effort. Normal bowel sounds, soft, non-tender, nondistended, no guarding. Extremities without clubbing, cyanosis, trace edema. No rash of generalized distribution. Skin is warm and dry. AAO x3, no cranial nerve deficits, moves all 4 extremities, no focal neurologic deficits Normal mood, appropriate affect Hospital Course This is a 61 year-old male with history of diabetes presented with chest pain that was atypical. Patient had mild troponin elevation but remained flat however patient had ongoing chest pain. Cardiology was consulted. Previous Nuclear Stress 05/22/2016 negative for ischemia, low risk. Initial trop 0.07, EKG w/ no acute changes. cardiac enzymes reviewed troponin still. Continue home ASA, Statin, Coreg. H/o Cocaine Abuse, check U/a, drug screen positive for opiates. Echocardiogram showed ejection fraction of 60-65%. Status post cardiac catheterization 07/28/16, successful PCI to mid right coronary artery. Left ventricular and diastolic dysfunction, pressure 23. At risk for CHF. Cleared by cardiology but recommended pulmonary consultation for sleep apnea. Pulmonary was consulted, baseline tests done including ulnar function tests, thyroid function tests and ABG. Patient be discharged if oxygen is required. Otherwise, treat medically. Patient will continue on Procardia, clonidine, Coreg, lisinopril, losartan, hydrochlorothiazide, hydralazine. Resume Coumadin. Pt Condition on Discharge: Good Discharge Disposition: Discharge Home Discharge Time: > 30 minutes Discharge Instructions DIET: Follow Instructions for: Heart Healthy Diet Activities you can perform: Regular-No Restrictions Follow up Referrals: Cardiology - 2 Weeks PCP Follow-up - 1 Week New Medications: Oxygen tank (Oxygen tank) 1 Ea Tank 2 LITER LEONARD.CANULA CONTINUOUS Oxygen Concentrator Portable Gaseous 2 L/min via Nasal Cannula Continuous For 99 months HYPOXEMIA PREVENTION #1 CYLINDER Atorvastatin (Lipitor) 40 Mg Tab 80 MG PO DAILY dyslipidemia #30 TAB Clonidine (Catapres) 0.1 Mg Tab 0.1 MG PO Q12HR htn #60 TAB Clopidogrel (Plavix) 75 Mg Tab 75 MG PO DAILY CAD #30 TAB Hydralazine (Hydralazine) 50 Mg Tab 50 MG PO Q6HR HTN #120 TAB Losartan (Cozaar) 50 Mg Tab 100 MG PO DAILY HTN #30 TAB Nifedipine (Nifedipine ER) 90 Mg Tab 90 MG PO DAILY HTN #30 TAB ([Aspirin Chew]) 81 MG CHEW 81 MG PO DAILY heart Days 30 TAB.CHEW Continued Medications: Carvedilol (Coreg) 25 Mg Tab 25 MG PO BID #60 Ref 0 TAB Gabapentin (Gabapentin) 800 Mg Tab 800 MG PO TID #90 Ref 0 TAB Hydrochlorothiazide (Hydrochlorothiazide) 50 Mg Tab 50 MG PO DAILY #60 Ref 0 TAB Hydrocodone-Acetaminophen (Lortab) 10-325 Mg Tab 1 TAB PO Q4H PRN PAIN Ref 0 TAB Insulin Glargine Inj (Lantus Inj) 1,000 Unit/10 Ml Vial 60 UNITS SQ BID Blood Sugar Management Ref 0 VIAL Insulin Human Regular Inj (Novolin R Inj) 1,000 Unit/10 Ml Vial 0 SQ TIDACHS Sliding Scale As Directed. Blood Sugar Management #10 Ref 0 ML Metoclopramide (Metoclopramide) 5 Mg Tab 5 MG PO TIDAC Ref 0 TAB Nitroglycerin SL (Nitroglycerin SL) 0.4 Mg Subl 0.4 MG SL DIRECTED ONE TABLET UNDER THE TONGUE NEEDED FOR CHEST PAIN, MAY REPEAT EVERY FIVE MINUTES FOR A TOTAL OF 3 DOSES OR CALL 911 IF NO RELIEF PRN CHEST PAIN #100 Ref 0 TAB.SL Orphenadrine ER 12 HR (Orphenadrine ER 12 HR) 100 Mg Tab 100 MG PO BID Muscle Spasm TAB Potassium Chloride ER (K-Tab) 20 Meq Tab 20 MEQ PO DAILY Electrolyte Replacement #30 Ref 0 TAB Warfarin (Warfarin) 10 Mg Tab 13 MG PO DAILY Blood Clot Prevention #30 Ref 0 TAB Zolpidem (Ambien) 10 Mg Tab 10 MG PO HS PRN INSOMNIA Ref 0 TAB Discontinued Medications: Hydralazine (Hydralazine) 50 Mg Tab 50 MG PO TID Blood Pressure Management Days 30 TAB Nifedipine ER 24 HR (Nifedical XL) 60 Mg Tab 60 MG PO DAILY Blood Pressure Management Days 30 TAB Rosuvastatin (Crestor) 10 Mg Tab 10 MG PO DAILY Cholesterol Management #30 Ref 0 TAB Zaheer Peter MD Jul 29, 2016 11:29
--- NOTE | 2016-07-29 11:30 | HHI.FF ---
Face to Face Verification Diagnosis: (1) Chest pain (2) GERBER (obstructive sleep apnea) (3) Hypoxemia Home Health Nursing Order: Medical education Signs/symptoms of disease process Oxygen administration education Nursing assessment with vital signs I have seen patient Elvin William on 07/29/16. My clinical findings support the need for the requested home health care services because: Ltd mobility - disease progression Patient has SOB I certify that my clinical findings support that this patient is homebound because: Unsteady gait/balance Unsafe to leave home unassisted Zaheer Peter MD Jul 29, 2016 11:30
[2016-07-29] MEDS: ORPHENADRINE CITRATE 100 MG SUSTAINED RELEASE TAB PO SCH (12:19)
[2016-07-29] MEDS: HYDROCHLOROTHIAZIDE 50 MG TAB PO SCH (12:20)
== END 2016-07-29 13:10 | disposition home or self-care (01) | DRG 247 ==
LOC: NEPC 21:44 → NEDA 07-25 01:16 → HCIN 07-25 03:36
PROVIDERS: ADMIT Hospitalist; ATTEND Hospitalist
PROC: 4A023N7 Measurement of Cardiac Sampling and Pressure, Left Heart, Percutaneous Approach (ICD-10-PCS; 2016-07-28)
PROC: B2111ZZ Fluoroscopy of Multiple Coronary Arteries using Low Osmolar Contrast (ICD-10-PCS; 2016-07-28)
PROC: 027034Z Dilation of Coronary Artery, One Artery with Drug-eluting Intraluminal Device, Percutaneous Approach (ICD-10-PCS; principal; 2016-07-28 15:00)
DX: I13.10 Hypertensive heart and chronic kidney disease without heart failure, with stage 1 through stage 4 chronic kidney disease, or unspecified chronic kidney disease (principal); N18.4 Chronic kidney disease, stage 4 (severe); E11.22 Type 2 diabetes mellitus with diabetic chronic kidney disease; R07.89 Other chest pain; I25.10 Atherosclerotic heart disease of native coronary artery without angina pectoris; E11.42 Type 2 diabetes mellitus with diabetic polyneuropathy; Z72.89 Other problems related to lifestyle; E66.01 Morbid (severe) obesity due to excess calories; G89.29 Other chronic pain; M54.9 Dorsalgia, unspecified; E78.5 Hyperlipidemia, unspecified; D57.3 Sickle-cell trait; R79.89 Other specified abnormal findings of blood chemistry; D64.9 Anemia, unspecified; I73.9 Peripheral vascular disease, unspecified; I87.2 Venous insufficiency (chronic) (peripheral); G47.33 Obstructive sleep apnea (adult) (pediatric); G62.9 Polyneuropathy, unspecified; Z91.14 Patient's other noncompliance with medication regimen; Z91.19 Patient's noncompliance with other medical treatment and regimen; Z68.36 Body mass index [BMI] 36.0-36.9, adult; Z79.4 Long term (current) use of insulin; Z79.01 Long term (current) use of anticoagulants; Z86.718 Personal history of other venous thrombosis and embolism; Z86.711 Personal history of pulmonary embolism; Z95.5 Presence of coronary angioplasty implant and graft; Z87.891 Personal history of nicotine dependence; Z86.73 Personal history of transient ischemic attack (TIA), and cerebral infarction without residual deficits
CPT/HCPCS: 36600; 71010; 76937; 78582; 80048; 80053; 80307; 81001; 82550; 82552; 82805; 82948; 83880; 84439; 84443; 84481; 84484; 85025; 85027; 85610; 85730; 92928; 93005; 93306; 93454; 94620; 96374; 96375; 96376; A9540; A9567; C1725; C1769; C1874; C1887; C1893; J0360; J1644; J2250; J2270; J2310; J3010; J3430; J7030; Q9967

== ENCOUNTER 2016-07-30 00:03 | Inpatient (IN) | payer OTHER, MEDICAID, MEDICARE ==
[2016-07-30] VITALS (22 sets, daily range): BP systolic 116–193; BP diastolic 61–94; PULSE 62–93; RESP 16–20; TEMP 97.5–98.9; O2SAT 94–97
[~2016-07-30] VITALS: Ht 175.3 cm; Wt 120.8 kg
[~2016-07-30 00:03] MED LIST changes: +Aspirin Chew PO; +CLON.1 PO; +COZA50TA PO; +LIPI40TA PO; -NIFE15TA PO; +NIFE90TA2 PO; +OXYGENTANK NAS.CANULA; +PLAV75TA29 PO; -ROSU10 PO; +WARF-22 PO; -WARF-60 PO
[2016-07-30 01:03] LABS: MEAN CORPUSCULAR HGB CONC 36.6 % (32.0-36.0)
[2016-07-30] MEDS ORDERED: SODIUM CHLORIDE 0.9% FLUSH 5 ML FLUSH IVF PRN (01:15)
[2016-07-30 01:27] LABS: AUTOMATED NEUTROPHIL # 2.1 TH/MM3 (1.8-7.7); BASOPHIL % 0.4 % (0.0-2.0); EOSINOPHIL # 0.1 TH/MM3 (0-0.4); EOSINOPHIL % 3.1 % (0.0-4.0); HEMATOCRIT 31.1 % (39.0-51.0); LYMPH % 21.1 % (9.0-44.0); LYMPHOCYTE # 0.7 TH/MM3 (1.0-4.8); MEAN CELL VOLUME 78.7 FL (80.0-100.0); MEAN CORPUSCULAR HEMOGLOBIN 28.8 PG (27.0-34.0); MONO % 9.9 % (0.0-8.0); NEUT % 65.5 % (16.0-70.0); PLATELET COUNT 342 TH/MM3 (150-450); RED BLOOD COUNT 3.95 MIL/MM3 (4.50-5.90); RED CELL DISTRIBUTION WIDTH 19.2 % (11.6-17.2); WHITE BLOOD COUNT 3.1 TH/MM3 (4.0-11.0)
--- NOTE | 2016-07-30 01:28 | PD ---
HPI Chief Complaint: Respiratory Symptoms Time Seen by Provider: 00:43 Travel History International Travel<30 days: No Contact w/Intl Traveler<30days: No Traveled to known affect area: No History of Present Illness HPI Patient is a 61 year old male, with past medical history of hypertension, DVT, and myocardial infarction who presents to the ED with shortness of breath. He was recently discharged from the hospital MondayJul.25. He was having similar symptoms accompanied with chest pain was found to have 80% coronary blocking for which he received a coronary stent. Patient denies chest pain, palpitations, or lightheadedness. He began experiencing shortness of breath exacerbated by lying down around 10:30 PM and was taken to the ED by his . Patient denies any chest pain on this admission states he' s been taking his medications as prescribed. History Past Medical History PNEUMOCCOCAL Vaccine (Year): 3 Social History Alcohol Use: No Tobacco Use: No (QUIT 2005) Allergies-Medications (Allergen,Severity, Reaction): Coded Allergies: DAWIT Inhibitors (Verified Allergy, Severe, ANGIOEDEMA, 07/24/16) Vasotec (Verified Allergy, Severe, 07/24/16) ANGIOEDEMA Clonidine (Verified Allergy, Mild, DRY MOUTH, 07/24/16) Dilaudid (Verified Adverse Reaction, Intermediate, ITCHING, 07/24/16) Reported Meds & Prescriptions Reported Meds & Active Scripts Active Nifedipine ER (Nifedipine) 90 Mg Tab 90 Mg PO DAILY Cozaar (Losartan Potassium) 50 Mg Tab 100 Mg PO DAILY Hydralazine (Hydralazine HCl) 50 Mg Tab 50 Mg PO Q6HR Plavix (Clopidogrel Bisulfate) 75 Mg Tab 75 Mg PO DAILY Catapres (Clonidine) 0.1 Mg Tab 0.1 Mg PO Q12HR Lipitor (Atorvastatin Calcium) 40 Mg Tab 80 Mg PO DAILY [Aspirin Chew] 81 MG Chew 81 Mg PO DAILY 30 Days Reported Warfarin 10 Mg Tab 13 Mg PO DAILY Lantus Inj (Insulin Glargine) 1,000 Unit/10 Ml Vial 60 Units SQ BID Metoclopramide (Metoclopramide HCl) 5 Mg Tab 5 Mg PO TIDAC Orphenadrine ER 12 HR (Orphenadrine Citrate) 100 Mg Tab 100 Mg PO BID Ambien (Zolpidem Tartrate) 10 Mg Tab 10 Mg PO HS PRN Novolin R Inj (Insulin Human Regular) 1,000 Unit/10 Ml Vial 0 SQ TIDACHS Sliding Scale As Directed. Nitroglycerin SL (Nitroglycerin) 0.4 Mg Subl 0.4 Mg SL DIRECTED PRN ONE TABLET UNDER THE TONGUE NEEDED FOR CHEST PAIN, MAY REPEAT EVERY FIVE MINUTES FOR A TOTAL OF 3 DOSES OR CALL 911 IF NO RELIEF Lortab (Hydrocodone-Acetaminophen) 10-325 Mg Tab 1 Tab PO Q4H PRN K-Tab (Potassium Chloride) 20 Meq Tab 20 Meq PO DAILY Hydrochlorothiazide 50 Mg Tab 50 Mg PO DAILY Coreg (Carvedilol) 25 Mg Tab 25 Mg PO BID Gabapentin 800 Mg Tab 800 Mg PO TID Review of Systems Except as stated in HPI: all other systems reviewed are Neg Physical Exam Narrative GENERAL: Obese male well nourished, well developed, appears uncomfortable the stretcher but in no acute distress. SKIN: Warm and dry. HEAD: Atraumatic. Normocephalic. EYES: Pupils equal and round. No scleral icterus. No injection or drainage. ENT: No nasal bleeding or discharge. Mucous membranes pink and moist. NECK: Trachea midline. No JVD. CARDIOVASCULAR: Regular rate and rhythm. RESPIRATORY: Accessory muscle use, and nasal flaring. Clear to auscultation. Breath sounds equal bilaterally. GASTROINTESTINAL: Abdomen soft, non-tender, nondistended. Hepatic and splenic margins not palpable. MUSCULOSKELETAL: Extremities without clubbing, cyanosis, or edema. No obvious deformities. NEUROLOGICAL: Awake and alert. No obvious cranial nerve deficits. Motor grossly within normal limits. Five out of 5 muscle strength in the arms and legs. Normal speech. PSYCHIATRIC: Appropriate mood and affect; insight and judgment normal. Data Data Last Documented VS Vital Signs Date Time Temp Pulse Resp B/P Pulse Ox O2 Delivery O2 Flow Rate FiO2 07/30/16 03:00 62 16 146/69 96 Nasal Cannula 2 07/30/16 00:06 98.3 Orders Electrocardiogram (07/30/16 01:01) Basic Metabolic Panel (Bmp) (07/30/16 01:01) B-Type Natriuretic Peptide (07/30/16 01:01) Ckmb (Isoenzyme) Profile (07/30/16 01:01) Complete Blood Count With Diff (07/30/16 01:01) Magnesium (Mg) (07/30/16 01:01) Prothrombin Time / Inr (Pt) (07/30/16 01:01) Act Partial Throm Time (Ptt) (07/30/16 01:01) Troponin I (07/30/16 01:01) Ecg Monitoring (07/30/16 01:01) Bilateral Bp Monitoring (07/30/16 01:01) Iv Access Insert/Monitor (07/30/16 01:01) Oximetry (07/30/16 01:01) Oxygen Administration (07/30/16 01:01) Sodium Chloride 0.9% Flush (Ns Flush) (07/30/16 01:15) Chest, Pa & Lat (07/30/16 ) CKMB (07/30/16 01:50) CKMB% (07/30/16 01:50) Admit Order (Ed Use Only) (07/30/16 ) Admit To Inpatient (07/30/16 ) Vital Signs (Adult) Q4H (07/30/16 03:45) Activity Oob Ad Edilia (07/30/16 03:45) ^ Technical Buyer / Telemetry .CONTINUOUS (07/30/16 03:45) Intake + Output KENNEDI.QSHIFT (07/30/16 03:45) Diet 1800 Ada Cons Carb (07/30/16 Breakfast) Sodium Chloride 0.9% Flush (Ns Flush) (07/30/16 03:45) Sodium Chloride 0.9% Flush (Ns Flush) (07/30/16 09:00) Ondansetron Inj (Zofran Inj) (07/30/16 03:45) Bisacodyl Supp (Dulcolax Supp) (07/30/16 03:45) Comprehensive Metabolic Panel (07/31/16 06:00) Complete Blood Count With Diff (07/31/16 06:00) Troponin I (07/30/16 08:00) Troponin I (07/30/16 14:00) Prothrombin Time / Inr (Pt) (07/31/16 06:00) Pharmacologic Contraindication (07/30/16 03:45) Acetaminophen (Tylenol) (07/30/16 03:45) Acetamin-Hydrocod 325-5 Mg ([place] 5-325 (07/30/16 03:45) Morphine Inj (Morphine Inj) (07/30/16 03:45) Inpatient Certification (07/30/16 ) Consult Cardiology (07/30/16 ) Carvedilol (Coreg) (07/30/16 09:00) Clonidine (Catapres) (07/30/16 09:00) Clopidogrel (Plavix) (07/30/16 09:00) Gabapentin (Neurontin) (07/30/16 09:00) Hydralazine (Apresoline) (07/30/16 06:00) Hydrochlorothiazide (Hydrodiuril) (07/30/16 09:00) Nifedipine Sr (Procardia Xl) (07/30/16 09:00) Orphenadrine Sr (Norflex Cr) (07/30/16 09:00) Warfarin (Coumadin) (07/30/16 09:00) Zolpidem (Ambien) (07/30/16 03:45) Warfarin (Coumadin) (07/30/16 16:00) Bedside Glucose KENNEDI.AC&HS (07/30/16 03:50) ^ Blood Glucose Goal (Criteria (07/30/16 03:50) ^ Hypoglycemia 51 - 69 Mg/Dl (07/30/16 03:50) ^ Hypoglycemia 50 Mg/Dl Or < (07/30/16 03:50) ^ Notify Dr: Other (07/30/16 03:50) Dextrose 50% In Gio (Vial) Inj (D50w (Vi (07/30/16 04:00) Glucagon Inj (Glucagon Inj) (07/30/16 04:00) Insulin Aspart Supplemtl Scale (Novolog (07/30/16 07:00) Atorvastatin (Lipitor) (07/30/16 09:00) Insulin Detemir Inj (Levemir Inj) (07/30/16 09:00) Labs Laboratory Tests Test 07/30/16 07/30/16 01:00 01:50 White Blood Count 3.1 TH/MM3 Red Blood Count 3.95 MIL/MM3 Hemoglobin 11.4 GM/DL Hematocrit 31.1 % Mean Corpuscular Volume 78.7 FL Mean Corpuscular Hemoglobin 28.8 PG Mean Corpuscular Hemoglobin 36.6 % Concent Red Cell Distribution Width 19.2 % Platelet Count 342 TH/MM3 Mean Platelet Volume 10.7 FL Neutrophils (%) (Auto) 65.5 % Lymphocytes (%) (Auto) 21.1 % Monocytes (%) (Auto) 9.9 % Eosinophils (%) (Auto) 3.1 % Basophils (%) (Auto) 0.4 % Neutrophils # (Auto) 2.1 TH/MM3 Lymphocytes # (Auto) 0.7 TH/MM3 Monocytes # (Auto) 0.3 TH/MM3 Eosinophils # (Auto) 0.1 TH/MM3 Basophils # (Auto) 0.0 TH/MM3 CBC Comment AUTO DIFF Differential Comment AUTO DIFF CONFIRMED Prothrombin Time 11.6 SEC Prothromb Time International 1.0 RATIO Ratio Activated Partial 27.1 SEC Thromboplast Time Sodium Level 145 MEQ/L Potassium Level 4.0 MEQ/L Chloride Level 110 MEQ/L Carbon Dioxide Level 30.1 MEQ/L Anion Gap 5 MEQ/L Blood Urea Nitrogen 29 MG/DL Creatinine 1.47 MG/DL Estimat Glomerular Filtration 59 ML/MIN Rate Random Glucose 131 MG/DL Calcium Level 8.5 MG/DL Magnesium Level 2.3 MG/DL Total Creatine Kinase 218 U/L Creatine Kinase MB 2.9 NG/ML Troponin I 0.26 NG/ML B-Type Natriuretic Peptide 70 PG/ML MDM Medical Decision Making Medical Screen Exam Complete: Yes Emergency Medical Condition: Yes Medical Record Reviewed: Yes Differential Diagnosis Congestive Heart Failure Pulmonary Edema Pulmonary Embolism Pulmonary Hypertension Myocardial Infarction Narrative Course Patient 61-year-old male presents emergency Department with shortness of breath. Patient states he does have a prescription for home oxygen but has not been able to fill it. On my initial evaluation he is on 2 L nasal 95%. A Trial on Room Air He Is Able to Maintain Satting 92. Patient on Initial Workup Hasn't a Reassuring EKG but Does Have an elevated troponin over his discharge level. His discharge troponin was 0.08 and today his troponin is 0.25. Given this a discussed with the patient and his my recommendation for admission to rule out restenosis and they're agreeable. In revisit he is sleeping soundly in a stretcher in no apparent distress. He is maintaining saturations while in the emergency department. Chest x-ray is negative. Labs are otherwise reassuring. Discussed with Dr. Moore will admit. Diagnosis Primary Impression: Non-STEMI (non-ST elevated myocardial infarction) Admitting Information Admitting Physician Requests: Admit Condition: Stable Willie Gamble MD Jul 30, 2016 01:28
[2016-07-30 01:47] LABS: HEMO FLAGS AUTO DIFF
--- NOTE | 2016-07-30 01:55 | RADRPT ---
EXAM DATE/TIME: 07/30/2016 01:43 [facility] COMPARISON: No previous studies available for comparison. INDICATIONS : Shortness of breath. MEDICAL HISTORY : Hypertension. Diabetes mellitus type II. SURGICAL HISTORY : Coronary artery stent. ENCOUNTER: Initial ACUITY: 1 day PAIN SCORE: 0/10 LOCATION: Bilateral chest FINDINGS: The cardiac silhouette is enlarged in transverse diameter. The lungs are free of acute parenchymal op acity. No effusions are identified. Osseous structures are intact. CONCLUSION: Cardiomegaly. No acute cardiopulmonary disease. Kentrell Dominguez MD on July 30, 2016 at 1:53 Board Certified Radiologist. This report was verified electronically.
[2016-07-30 02:21] LABS: APTT (PATIENT) 27.1 SEC (24.3-30.1); PROTHROMBIN TIME - PATIENT 11.6 SEC (9.8-11.6)
[2016-07-30 02:28] LABS: ANION GAP 5 MEQ/L (5-15); BICARBONATE 30.1 MEQ/L (21.0-32.0); BLOOD UREA NITROGEN 29 MG/DL (7-18); CHLORIDE 110 MEQ/L (98-107); GLOMERULAR FILTRATION RATE 59 ML/MIN (>89); MAGNESIUM 2.3 MG/DL (1.5-2.5); SODIUM (NA) 145 MEQ/L (136-145)
[2016-07-30 02:29] LABS: CREATINE KINASE 218 U/L (39-308)
[2016-07-30 02:45] LABS: CKMB 2.9 NG/ML (0.5-3.6)
[2016-07-30 02:59] LABS: SCAN/DIFF AUTO DIFF CONFIRMED
[2016-07-30] MEDS ORDERED: ACETAMINOPHEN 325 MG TAB PO PRN (03:45)
[2016-07-30] MEDS ORDERED: SODIUM CHLORIDE 0.9% FLUSH 5 ML FLUSH FLUSH PRN (03:45)
[2016-07-30] MEDS ORDERED: BISACODYL 10 MG SUPP PR PRN (03:45)
[2016-07-30] MEDS ORDERED: ONDANSETRON HCL 4 MG/2 ML VIAL IVP PRN (03:45)
[2016-07-30] MEDS ORDERED: ACETAMINOPHEN/HYDROcodone 325 MG/5 MG TAB PO PRN (03:45)
[2016-07-30] MEDS ORDERED: DEXTROSE 50% IN WATER 50 ML VIAL(D50) IV PUSH PRN (04:00)
[2016-07-30] MEDS ORDERED: GLUCAGON 1 MG/ML VIAL OTHER PRN (04:00)
[2016-07-30] MEDS ORDERED: KETOROLAC TROMETHAMINE 60 MG/2 ML (IM) VIAL IM ONE (05:15)
[2016-07-30] MEDS ORDERED: KETOROLAC TROMETHAMINE 30 MG/ML (IVP) VIAL IV PUSH ONE (05:15)
[2016-07-30] MEDS ORDERED: hydrALAZINE HCL 50 MG TAB PO SCH (06:00)
[2016-07-30] MEDS: INSULIN ASPART SUPPLEMENTAL SCALE SQ SCH ×4 (06:10→20:36)
[2016-07-30] MEDS: SODIUM CHLORIDE 0.9% FLUSH 5 ML FLUSH FLUSH SCH ×2 (08:34→20:34)
[2016-07-30] MEDS: CARVEDILOL 12.5 MG TAB PO SCH ×2 (08:34→20:35)
[2016-07-30] MEDS: GABAPENTIN 400 MG CAP PO SCH ×2 (08:35→20:35)
[2016-07-30] MEDS: ATORVASTATIN 80 MG TAB PO SCH (08:35)
[2016-07-30] MEDS: INSULIN DETEMIR 100 UNITS/ML VIAL SQ SCH ×2 (08:35→20:36)
[2016-07-30] MEDS: HYDROCHLOROTHIAZIDE 50 MG TAB PO SCH (08:58)
[2016-07-30] MEDS: CLOPIDOGREL 75 MG TAB PO SCH (08:58)
[2016-07-30] MEDS: ORPHENADRINE CITRATE 100 MG SUSTAINED RELEASE TAB PO SCH ×2 (08:58→20:35)
[2016-07-30] MEDS: MORPHINE SULFATE 4 MG/ML INJ IV PRN ×3 (08:59→20:46)
[2016-07-30] MEDS ORDERED: cloNIDine HCL 0.1 MG TAB PO SCH (09:00)
[2016-07-30] MEDS ORDERED: NIFEdipine 90 MG SUSTAINED RELEASE TAB PO SCH (09:00)
[2016-07-30] MEDS ORDERED: WARFARIN SOD 10 MG TAB PO SCH (09:00)
--- NOTE | 2016-07-30 10:50 | HHI.HP ---
[facility] Jhonathan Harris MD Admission Diagnosis Elevated [place], SOB Diagnoses: Travel History International Travel<30 Days: No Contact w/Intl Traveler <30 Da: No Traveled to Known Affected Are: No History of Present Illness This is a 61 year-old male with history of diabetes, coronary artery disease, hypertension, who initially presented with chest pain a few days ago, mild troponin elevation EKG was unremarkable. Previous stress test in May 2016 was negative for ischemia. Patient had ongoing chest pain hence a cardiac catheterization was done, as patient status post PCI to mid right coronary artery. Echocardiogram showed an ejection fraction of 60-65%. Cardiology cleared the patient and recommended optimal medical management with Procardia, clonidine, Coreg, lisinopril, losartan, hydrochlorothiazide and hydralazine. Pulmonary was also consulted for evaluation of sleep apnea. Patient was doing well, was discharged yesterday. Was doing fine until last evening when he showered, went back to bed and became short of breath, wheezing, and nonproductive cough. Patient denies any chest pain, lightheadedness, diaphoresis. No fever or chills. Patient shortness of breath was worse when he is coughing and when he is yawning. Presently, patient's breathing is better. Review of Systems ROS Limitations: Other (All other pertinent systems were reviewed and are negative.) Past Family Social History Past Medical History Diabetes mellitus Hypertension Coronary artery History DVT and Coumadin Sickle cell trait Noncompliance Chronic pain Past Surgical History Abdominal aortic aneurysm repair next and cholecystectomy Cardiac stenting Insulin pump with removal Left hip replacement Femoral popliteal bypass Reported Medications Nifedipine ER (Nifedipine) 90 Mg Tab 90 Mg PO DAILY Cozaar (Losartan Potassium) 50 Mg Tab 100 Mg PO DAILY Hydralazine (Hydralazine HCl) 50 Mg Tab 50 Mg PO Q6HR Plavix (Clopidogrel Bisulfate) 75 Mg Tab 75 Mg PO DAILY Catapres (Clonidine) 0.1 Mg Tab 0.1 Mg PO Q12HR Lipitor (Atorvastatin Calcium) 40 Mg Tab 80 Mg PO DAILY Aspirin Warfarin 10 Mg Tab 13 Mg PO DAILY Lantus Inj (Insulin Glargine) 1,000 Unit/10 Ml Vial 60 Units SQ BID Metoclopramide (Metoclopramide HCl) 5 Mg Tab 5 Mg PO TIDAC Orphenadrine ER 12 HR (Orphenadrine Citrate) 100 Mg Tab 100 Mg PO BID Ambien (Zolpidem Tartrate) 10 Mg Tab 10 Mg PO HS PRN Novolin R Inj (Insulin Human Regular) 1,000 Unit/10 Ml Vial 0 SQ TIDACHS Sliding Scale As Directed. Nitroglycerin SL (Nitroglycerin) 0.4 Mg Subl 0.4 Mg SL DIRECTED PRN ONE TABLET UNDER THE TONGUE NEEDED FOR CHEST PAIN, MAY REPEAT EVERY FIVE MINUTES FOR A TOTAL OF 3 DOSES OR CALL 911 IF NO RELIEF Lortab (Hydrocodone-Acetaminophen) 10-325 Mg Tab 1 Tab PO Q4H PRN K-Tab (Potassium Chloride) 20 Meq Tab 20 Meq PO DAILY Hydrochlorothiazide 50 Mg Tab 50 Mg PO DAILY Coreg (Carvedilol) 25 Mg Tab 25 Mg PO BID Gabapentin 800 Mg Tab 800 Mg PO TID Allergies: Coded Allergies: DAWIT Inhibitors (Verified Allergy, Severe, ANGIOEDEMA, 07/24/16) Vasotec (Verified Allergy, Severe, 07/24/16) ANGIOEDEMA Clonidine (Verified Allergy, Mild, DRY MOUTH, 07/24/16) Dilaudid (Verified Adverse Reaction, Intermediate, ITCHING, 07/24/16) Family History No history of diabetes or coronary artery disease in the family. Social History Remote history of cocaine use, allegedly more than 15 years ago, no significant alcohol use, history of tobacco abuse, stopped in 2005. Physical Exam Vital Signs Vital Signs Date Time Temp Pulse Resp B/P Pulse Ox O2 Delivery O2 Flow Rate FiO2 07/30/16 09:56 18 07/30/16 06:30 98.0 93 18 172/76 96 07/30/16 05:16 98.2 64 16 153/61 96 Nasal Cannula 1 07/30/16 03:00 62 16 146/69 96 Nasal Cannula 2 07/30/16 01:07 67 18 176/79 96 Nasal Cannula 2 07/30/16 01:05 96 Nasal Cannula 2 07/30/16 01:05 18 96 Nasal Cannula 2 07/30/16 00:29 70 18 172/81 97 Nasal Cannula 2 07/30/16 00:26 71 18 95 Nasal Cannula 2 07/30/16 00:06 98.3 84 20 193/90 94 Room Air Physical Exam GENERAL: This is a well-nourished, well-developed patient, in no apparent distress. Obese. SKIN: No rashes, ecchymoses or lesions. Cool and dry. HEAD: Atraumatic. Normocephalic. No temporal or scalp tenderness. EYES: Pupils equal round and reactive. Extraocular motions intact. No scleral icterus. No injection or drainage. ENT: Nose without bleeding, purulent drainage or septal hematoma. Throat without erythema, tonsillar hypertrophy or exudate. Uvula midline. Airway patent. NECK: Trachea midline. No JVD or lymphadenopathy. Supple, nontender, no meningeal signs. CARDIOVASCULAR: Regular rate and rhythm, no murmurs appreciated RESPIRATORY: Decreased breath sounds symmetrically, bilateral crackles at both bases. GASTROINTESTINAL: Abdomen soft, non-tender, nondistended. No hepato-splenomegaly , or palpable masses. No guarding. MUSCULOSKELETAL: Extremities without clubbing, cyanosis, 1+ edema. NEUROLOGICAL: Awake and alert. Cranial nerves II through XII intact. Motor and sensory grossly within normal limits. Five out of 5 muscle strength in all muscle groups. Normal speech. Last Impressions Chest X-Ray 07/30/16 0000 Signed Impressions: Service Date/Time: Saturday, July 30, 2016 01:43 - CONCLUSION: Cardiomegaly. No acute cardiopulmonary disease. Kentrell Dominguez MD Laboratory Laboratory Tests Test 07/30/16 07/30/16 01:00 01:50 White Blood Count 3.1 Red Blood Count 3.95 Hemoglobin 11.4 Hematocrit 31.1 Mean Corpuscular Volume 78.7 Mean Corpuscular Hemoglobin 28.8 Mean Corpuscular Hemoglobin 36.6 Concent Red Cell Distribution Width 19.2 Platelet Count 342 Mean Platelet Volume 10.7 Neutrophils (%) (Auto) 65.5 Lymphocytes (%) (Auto) 21.1 Monocytes (%) (Auto) 9.9 Eosinophils (%) (Auto) 3.1 Basophils (%) (Auto) 0.4 Neutrophils # (Auto) 2.1 Lymphocytes # (Auto) 0.7 Monocytes # (Auto) 0.3 Eosinophils # (Auto) 0.1 Basophils # (Auto) 0.0 CBC Comment AUTO DIFF Differential Comment AUTO DIFF CONFIRMED Prothrombin Time 11.6 Prothromb Time International 1.0 Ratio Activated Partial 27.1 Thromboplast Time Sodium Level 145 Potassium Level 4.0 Chloride Level 110 Carbon Dioxide Level 30.1 Anion Gap 5 Blood Urea Nitrogen 29 Creatinine 1.47 Estimat Glomerular Filtration 59 Rate Random Glucose 131 Calcium Level 8.5 Magnesium Level 2.3 Total Creatine Kinase 218 Creatine Kinase MB 2.9 Troponin I 0.26 B-Type Natriuretic Peptide 70 Result Diagram: 07/30/16 0100 07/30/16 0150 Imaging Last Impressions Chest X-Ray 07/30/16 0000 Signed Impressions: Service Date/Time: Saturday, July 30, 2016 01:43 - CONCLUSION: Cardiomegaly. No acute cardiopulmonary disease. Kentrell Dominguez MD Assessment and Plan Assessment and Plan This is a 61 year-old male with history of diabetes presented with shortness of breath Flash pulmonary edema, diastolic congestive heart failure -likely multifactorial secondary to hypertensive emergency, may also have an element of cor pulmonale. Start Lasix 40 mg twice a day, chest x-ray showed bilateral pulmonary edema with cardiomegaly, personally reviewed. Interestingly, recent echocardiogram showed an ejection fraction of 60-65% without any RVH but with mild LVH. LVEDP was 23 though. non-STEMI: No chest pain but troponin is higher 0.26. Review of records showed a previous Echocardiogram showed ejection fraction of 60-65%. Status post cardiac catheterization 07/28/16, successful PCI to mid right coronary artery. EKG personally reviewed showed nonspecific ST-T wave changes, sinus rhythm. Left ventricular and diastolic dysfunction, LVEDP 23. At risk for CHF. Consult cardiology, restart antihypertensives, Coreg, aspirin, Plavix, Coumadin , losartan Uncontrolled HTN: Uncontrolled again, continue Procardia, clonidine, Coreg, losartan, hydrochlorothiazide, hydralazine . Increase Procardia and hydralazine DM: Sliding scale w/ Accu-Cheks. Resume home Lantus. Likely chronic kidney disease stage IV-monitor creatinine, monitor BMP. H/o DVT: On Coumadin 13mg qd. Continue, monitor INR. Chronic Pain: multiple ER presentations for pain, h/o drug seeking behavior. Resume home medications. Likely with sleep apnea- scientific helper has seen the patient previously, finished baseline thyroid function test, PFTs, and ABG. Might need home oxygen and discharge, C Pap at night DVT Prophylaxis: Coumadin, Lovenox while INR subtherapeutic. Discussed with Physician Certification 2 Midnight Certification Type: Admission for Inpatient Services Order for Inpatient Services The services are ordered in accordance with Medicare regulations or non- Medicare payer requirements, as applicable. In the case of services not specified as inpatient-only, they are appropriately provided as inpatient services in accordance with the 2-midnight benchmark. Estimated LOS (days): 2 days is the estimated time the patient will need to remain in the hospital, assuming treatment plan goals are met and no additional complications. Post-Hospital Plan: Home Zaheer Peter MD Jul 30, 2016 10:49 Order for Inpatient Services The services are ordered in accordance with Medicare regulations or non- Medicare payer requirements, as applicable. In the case of services not specified as inpatient-only, they are appropriately provided as inpatient services in accordance with the 2-midnight benchmark. days is the estimated time the patient will need to remain in the hospital, assuming treatment plan goals are met and no additional complications. Zaheer Peter MD Jul 30, 2016 10:49
[2016-07-30] MEDS ORDERED: NIFEdipine 30 MG SUSTAINED RELEASE TAB PO ONE (11:30)
[2016-07-30] MEDS ORDERED: PILL SPLITTER OTHER PRN (11:45)
[2016-07-30] MEDS: hydrALAZINE HCL 50 MG TAB PO SCH ×2 (12:17→16:19)
[2016-07-30] MEDS: FUROSEMIDE 40 MG/4 ML VIAL IV PUSH SCH ×2 (12:46→16:16)
[2016-07-30] MEDS: ASPIRIN 81 MG CHEW TAB CHEW SCH (12:46)
--- NOTE | 2016-07-30 13:16 | MB ---
cc: FIDENCIO COSBY MD DATE OF CONSULTATION: 07/30/2016 REASON FOR CONSULTATION Shortness of breath. HISTORY OF PRESENT ILLNESS The patient is a pleasant 61-year-old gentleman who has had multiple recent hospital admissions for atypical chest pain and shortness of breath, most recently last week at which time he received a stent to the RCA which apparently did not particularly change his symptoms of atypical chest pain and dyspnea. He was discharged home and returned again with similar symptoms of shortness of breath, no real chest pain just lower back pain. He says he currently feels better than he did on admission without any residual shortness of breath. PAST MEDICAL HISTORY 1. Coronary artery disease status post multiple right coronary artery stents, most recently July,. 2. PAD. 3. Morbid obesity. 4. Atypical chest pain. CURRENT MEDICATIONS 1. Warfarin. 2. Atorvastatin 80 mg daily. 3. Coreg 25 mg b.i.d. 4. Plavix 75 mg daily. 5. Neurontin 800 mg q.12. 6. Hydrochlorothiazide 50 mg daily. 7. Procardia 90 mg daily. 8. Norflex 100 mg b.i.d. ALLERGIES DAWIT INHIBITORS, CLONIDINE, DILAUDID, VASOTEC. PHYSICAL EXAMINATION VITAL SIGNS: Afebrile, pulse 93, respiratory rate 18, BP 172/76, satting 96% on 2 liters. GENERAL: A pleasant, morbidly obese, -[place] gentleman in no distress. NECK: No JVD. LUNGS: Decreased breath sounds bilaterally. CARDIOVASCULAR: Regular rate and rhythm. No murmurs appreciated. ABDOMEN: Benign. EXTREMITIES: 1+ edema bilaterally. LABORATORY DATA Sodium 145, potassium 4.0, chloride 110, bicarb 30.1, BUN 29, creatinine 1.47, troponin 0.26. White count 3.1, hematocrit 31.1, platelets 342. INR is 1.0. BNP is 70. EKG shows sinus rhythm at [address] changes. IMPRESSION 1. Shortness of breath. The patient's shortness of breath is likely multifactorial including his morbid obesity and possibly some diastolic congestive heart failure due to his high blood pressures. His BNP is very low and while this can be sometimes a false negative in particularly obese patients, his very low number does seem reassuring for significant congestive heart failure. He had an echocardiogram last week which showed a normal ejection fraction and this does not need to be repeated. He also has been worked up in the past for pulmonary embolism due to his symptoms both with a V/Q scan July 24, [address] of the chest July 01, 2016 both of which were negative for PE. The patient's mildly elevated troponin is very nonspecific and may be residual from his recent PCI. Certainly there is no evidence for acute stent thrombosis on his EKG or clinical history. I think it is reasonable to trend his enzymes but if they are trending downward I would not pursue any further workup as again it is likely due to a mild troponin bump during his prior PCI only two days ago. Overall, the patient's symptomatology is quite difficult with both cardiac and noncardiac problems. He has had multiple hospital presentations for similar symptoms and his cardiac interventions have not provided significant relief to him. I suspect there are noncardiac issues involved contributing to his symptoms as well. Thus, we will trend his enzymes and if negative I would consider asking pulmonary to weigh in as to a cause of his shortness of breath. Thank you again for the opportunity to participate in the patient's care. MD ZEYNEP Ford/ALLISON /10:35 AM /12:56 PM
--- NOTE | 2016-07-30 14:25 | EKG ---
Date Performed: 07/30/2016 Time Performed: 00:52:08 PTAGE: 61 years EKG: Sinus rhythm NONSPECIFIC T-WAVE ABNORMALITY BORDERLINE ECG Compared to prior tracing no significant change PREVIOUS TRACING : 07/25/2016 05.56 DOCTOR: Deepak Patel Interpretating Date/Time 07/30/2016 14:23:17
[2016-07-30] MEDS: WARFARIN SOD 3 MG TAB PO SCH (16:00)
[2016-07-30] MEDS: WARFARIN SOD 10 MG TAB PO SCH (16:00)
[2016-07-30] MEDS: ZOLPIDEM TARTRATE 10 MG TAB PO PRN (20:46)
[2016-07-31] VITALS (17 sets, daily range): BP systolic 149–182; BP diastolic 69–105; PULSE 57–75; RESP 18–20; TEMP 97.8–98.6; O2SAT 92–96
[2016-07-31] MEDS: hydrALAZINE HCL 50 MG TAB PO SCH ×5 (00:11→23:37)
[2016-07-31] MEDS: MORPHINE SULFATE 4 MG/ML INJ IV PRN ×7 (00:12→22:37)
[2016-07-31 05:17] LABS: AUTOMATED NEUTROPHIL # 1.7 TH/MM3 (1.8-7.7); BASOPHIL % 0.4 % (0.0-2.0); EOSINOPHIL # 0.2 TH/MM3 (0-0.4); HEMATOCRIT 34.5 % (39.0-51.0); HEMO FLAGS DIFF FINAL; LYMPH % 34.4 % (9.0-44.0); LYMPHOCYTE # 1.3 TH/MM3 (1.0-4.8); MEAN CELL VOLUME 78.8 FL (80.0-100.0); MEAN CORPUSCULAR HEMOGLOBIN 25.9 PG (27.0-34.0); MEAN CORPUSCULAR HGB CONC 32.9 % (32.0-36.0); MONO % 14.1 % (0.0-8.0); NEUT % 46.1 % (16.0-70.0); PLATELET COUNT 142 TH/MM3 (150-450); RED BLOOD COUNT 4.38 MIL/MM3 (4.50-5.90); WHITE BLOOD COUNT 3.7 TH/MM3 (4.0-11.0)
[2016-07-31 05:30] LABS: PROTHROMBIN TIME - PATIENT 11.4 SEC (9.8-11.6)
[2016-07-31 05:41] LABS: ALKALINE PHOSPHATASE 93 U/L (45-117); ALT (GPT) 34 U/L (12-78); ANION GAP 7 MEQ/L (5-15); AST (GOT) 22 U/L (15-37); BICARBONATE 31.4 MEQ/L (21.0-32.0); BLOOD UREA NITROGEN 25 MG/DL (7-18); CHLORIDE 105 MEQ/L (98-107); GLOMERULAR FILTRATION RATE 56 ML/MIN (>89); POTASSIUM 3.9 MEQ/L (3.5-5.1); SODIUM (NA) 143 MEQ/L (136-145); TOTAL BILIRUBIN ADULT 0.3 MG/DL (0.2-1.0)
[2016-07-31] MEDS: INSULIN ASPART SUPPLEMENTAL SCALE SQ SCH ×4 (06:19→21:00)
[2016-07-31] MEDS: CLOPIDOGREL 75 MG TAB PO SCH (08:56)
[2016-07-31] MEDS: ORPHENADRINE CITRATE 100 MG SUSTAINED RELEASE TAB PO SCH ×2 (08:56→21:07)
[2016-07-31] MEDS: CARVEDILOL 12.5 MG TAB PO SCH ×2 (08:56→21:08)
[2016-07-31] MEDS: HYDROCHLOROTHIAZIDE 50 MG TAB PO SCH (08:57)
[2016-07-31] MEDS: ASPIRIN 81 MG CHEW TAB CHEW SCH (08:57)
[2016-07-31] MEDS: GABAPENTIN 400 MG CAP PO SCH ×2 (08:57→21:08)
[2016-07-31] MEDS: FUROSEMIDE 40 MG/4 ML VIAL IV PUSH SCH (08:57)
[2016-07-31] MEDS: INSULIN DETEMIR 100 UNITS/ML VIAL SQ SCH ×2 (08:57→21:08)
[2016-07-31] MEDS: ATORVASTATIN 80 MG TAB PO SCH (08:57)
[2016-07-31] MEDS: SODIUM CHLORIDE 0.9% FLUSH 5 ML FLUSH FLUSH SCH ×2 (08:58→21:09)
[2016-07-31] MEDS ORDERED: NIFEdipine 60 MG SUSTAINED RELEASE TAB PO SCH (09:00)
[2016-07-31] MEDS ORDERED: amLODIPine BESYLATE 5 MG TAB PO SCH (09:58)
[2016-07-31] MEDS: POLYETHYLENE GLYCOL 17 GM PKG PO SCH (09:58)
[2016-07-31] MEDS: DOCUSATE SODIUM 50 MG/SENNA 8.6 MG TAB PO SCH ×2 (10:00→21:08)
--- NOTE | 2016-07-31 10:16 | PD.CARD.PN ---
Subjective Subjective Remarks Pt feels well, no cp/sob. Objective Medications Administered Medications Medications (Trade) Dose Ordered Sig/Conchita Route PRN Reason Start Time Stop Time Status Last Admin Dose Admin IV Flush (NS Flush) 2 ml UNSCH PRN FLUSH FLUSH AFTER USING IV ACCESS 07/30/16 03:45 07/31/16 05:16 IV Flush (NS Flush) 2 ml BID FLUSH 07/30/16 09:00 07/31/16 08:58 Ondansetron HCl (Zofran Inj) 4 mg Q6H PRN IVP NAUSEA OR VOMITING 07/30/16 03:45 07/30/16 05:26 Morphine Sulfate (Morphine Inj) 2 mg Q3H PRN IV Pain 6-10 07/30/16 03:45 07/31/16 08:59 Atorvastatin Calcium (Lipitor) 80 mg DAILY PO 07/30/16 09:00 07/31/16 08:57 Carvedilol (Coreg) 25 mg BID PO 07/30/16 09:00 07/31/16 08:56 Clopidogrel Bisulfate (Plavix) 75 mg DAILY PO 07/30/16 09:00 07/31/16 08:56 Gabapentin (Neurontin) 800 mg Q12HR PO 07/30/16 09:00 07/31/16 08:57 Hydrochlorothiazide (Hydrodiuril) 50 mg DAILY PO 07/30/16 09:00 Hold 07/31/16 08:57 Insulin Detemir (Levemir Inj) 60 units BID SQ 07/30/16 09:00 07/31/16 08:57 Orphenadrine Citrate (Norflex Cr) 100 mg BID PO 07/30/16 09:00 07/31/16 08:56 Zolpidem Tartrate (Ambien) 10 mg HS PRN PO INSOMNIA 07/30/16 03:45 07/30/16 20:46 Warfarin Sodium (Coumadin) 10 mg DAILY@1600 PO 07/30/16 16:00 07/30/16 16:00 Dextrose (D50w (Vial) Inj) 25 ml UNSCH PRN IV PUSH HYPOGLYCEMIA-SEE COMMENTS 07/30/16 04:00 07/30/16 05:29 Warfarin Sodium (Coumadin) 3 mg DAILY@1600 PO 07/30/16 16:00 07/30/16 16:00 Hydralazine HCl (Apresoline) 75 mg Q6HR PO 07/30/16 12:00 07/31/16 06:19 Nifedipine (Procardia Xl) 120 mg DAILY PO 07/31/16 09:00 07/31/16 08:57 Aspirin (Aspirin Chew) 81 mg DAILY CHEW 07/30/16 11:24 07/31/16 08:57 Vital Signs / I&O Vital Signs Date Time Temp Pulse Resp B/P Pulse Ox O2 Delivery O2 Flow Rate FiO2 07/31/16 09:42 18 07/31/16 06:00 64 07/31/16 05:00 97.8 67 20 159/93 96 07/31/16 05:00 68 07/31/16 04:00 58 07/31/16 03:00 61 07/31/16 02:00 67 07/31/16 01:00 67 07/31/16 00:00 97.8 69 20 158/80 95 07/31/16 00:00 68 07/30/16 23:00 66 07/30/16 22:00 69 07/30/16 21:00 94 21 07/30/16 21:00 69 07/30/16 20:00 69 07/30/16 20:00 98.9 72 20 177/94 97 07/30/16 17:00 65 07/30/16 16:00 64 07/30/16 16:00 98.2 78 18 123/68 97 07/30/16 15:00 73 07/30/16 14:00 70 07/30/16 13:00 71 07/30/16 12:00 63 07/30/16 12:00 97.5 66 18 116/83 97 07/30/16 11:00 78 I/O 07/30/16 07/30/16 07/30/16 07/31/16 07/31/16 07/31/16 07:00 15:00 23:00 07:00 15:00 23:00 Intake Total 960 ml 240 ml Balance 960 ml 240 ml Intake Oral 960 ml 240 ml # Voids 3 2 # Bowel Movements 0 Physical Exam GENERAL: This is a well-nourished, well-developed patient, in no apparent distress. CARDIOVASCULAR: Regular rate and rhythm without murmurs, gallops, or rubs. RESPIRATORY: Clear to auscultation. Breath sounds equal bilaterally. No wheezes , rales, or rhonchi. GASTROINTESTINAL: Abdomen soft, non-tender, nondistended. Normal active bowel sounds MUSCULOSKELETAL: Extremities without clubbing, cyanosis, or edema. NEURO: Alert & Oriented x4 to person, place, time, situation. Moves all ext x4 Laboratory Laboratory Tests Test 07/30/16 07/30/16 07/31/16 10:51 14:48 04:37 Troponin I 0.26 NG/ML 0.24 NG/ML White Blood Count 3.7 TH/MM3 Red Blood Count 4.38 MIL/MM3 Hemoglobin 11.3 GM/DL Hematocrit 34.5 % Mean Corpuscular Volume 78.8 FL Mean Corpuscular Hemoglobin 25.9 PG Mean Corpuscular Hemoglobin 32.9 % Concent Red Cell Distribution Width 18.0 % Platelet Count 142 TH/MM3 Mean Platelet Volume 8.1 FL Neutrophils (%) (Auto) 46.1 % Lymphocytes (%) (Auto) 34.4 % Monocytes (%) (Auto) 14.1 % Eosinophils (%) (Auto) 5.0 % Basophils (%) (Auto) 0.4 % Neutrophils # (Auto) 1.7 TH/MM3 Lymphocytes # (Auto) 1.3 TH/MM3 Monocytes # (Auto) 0.5 TH/MM3 Eosinophils # (Auto) 0.2 TH/MM3 Basophils # (Auto) 0.0 TH/MM3 CBC Comment DIFF FINAL Differential Comment Prothrombin Time 11.4 SEC Prothromb Time International 1.0 RATIO Ratio Sodium Level 143 MEQ/L Potassium Level 3.9 MEQ/L Chloride Level 105 MEQ/L Carbon Dioxide Level 31.4 MEQ/L Anion Gap 7 MEQ/L Blood Urea Nitrogen 25 MG/DL Creatinine 1.55 MG/DL Estimat Glomerular Filtration 56 ML/MIN Rate Random Glucose 219 MG/DL Calcium Level 8.4 MG/DL Total Bilirubin 0.3 MG/DL Aspartate Amino Transf 22 U/L (AST/SGOT) Alanine Aminotransferase 34 U/L (ALT/SGPT) Alkaline Phosphatase 93 U/L Total Protein 6.2 GM/DL Albumin 2.9 GM/DL Imaging Last Impressions Chest X-Ray 07/30/16 0000 Signed Impressions: Service Date/Time: Saturday, July 30, 2016 01:43 - CONCLUSION: Cardiomegaly. No acute cardiopulmonary disease. Kentrell Dominguez MD Assessment and Plan Problem List: (1) Elevated troponin Assessment and Plan: flat/non-specific, likely due to CRI/HTN, no cp, continue med mgt. (2) HTN (hypertension) Assessment and Plan: still high, will d/c nifedipine as already on ccb; will add Imdur (3) SOB (shortness of breath) Assessment and Plan: improved, perhaps pulmonary, no clear cardiac etiology. (4) CAD (coronary artery disease) Assessment and Plan will be available as needed from here, please call with questions. Sriram Borges MD Jul 31, 2016 10:16
--- NOTE | 2016-07-31 10:29 | HHI.PR ---
Subjective Remarks Follow-up for shortness of breath Had another episode at 3 PM yesterday of severe shortness of breath while lying down, improved spontaneously. There is any chest pain. No wheezing. Objective Vitals Vital Signs Date Time Temp Pulse Resp B/P Pulse Ox O2 Delivery O2 Flow Rate FiO2 07/31/16 09:42 18 07/31/16 06:00 64 07/31/16 05:00 97.8 67 20 159/93 96 07/31/16 05:00 68 07/31/16 04:00 58 07/31/16 03:00 61 07/31/16 02:00 67 07/31/16 01:00 67 07/31/16 00:00 97.8 69 20 158/80 95 07/31/16 00:00 68 07/30/16 23:00 66 07/30/16 22:00 69 07/30/16 21:00 94 21 07/30/16 21:00 69 07/30/16 20:00 69 07/30/16 20:00 98.9 72 20 177/94 97 07/30/16 17:00 65 07/30/16 16:00 64 07/30/16 16:00 98.2 78 18 123/68 97 07/30/16 15:00 73 07/30/16 14:00 70 07/30/16 13:00 71 07/30/16 12:00 63 07/30/16 12:00 97.5 66 18 116/83 97 07/30/16 11:00 78 I/O 07/30/16 07/30/16 07/30/16 07/31/16 07/31/16 07/31/16 07:00 15:00 23:00 07:00 15:00 23:00 Intake Total 960 ml 240 ml Balance 960 ml 240 ml Intake Oral 960 ml 240 ml # Voids 3 2 # Bowel Movements 0 Result Diagram: 07/31/167 07/31/16436 Objective Remarks GENERAL: This is a well-nourished, well-developed patient, in no apparent distress. Obese. SKIN: No rashes, ecchymoses or lesions. Cool and dry. HEAD: Atraumatic. Normocephalic. No temporal or scalp tenderness. EYES: Pupils equal round and reactive. Extraocular motions intact. No scleral icterus. No injection or drainage. ENT: Airway patent. NECK: Trachea midline. Supple neck CARDIOVASCULAR: Regular rate and rhythm, no murmurs appreciated RESPIRATORY: Decreased breath sounds symmetrically, bilateral crackles at both bases. GASTROINTESTINAL: Abdomen soft, non-tender, nondistended. No hepato-splenomegaly , or palpable masses. No guarding. MUSCULOSKELETAL: Extremities without clubbing, cyanosis, 1+ edema. NEUROLOGICAL: Awake and alert. Cranial nerves II through XII intact. Motor and sensory grossly within normal limits. Five out of 5 muscle strength in all muscle groups. Normal speech. A/P Assessment and Plan This is a 61 year-old male with history of diabetes presented with shortness of breath Flash pulmonary edema, diastolic congestive heart failure versus pulmonary causes-likely multifactorial secondary to hypertensive emergency, may also have an element of cor pulmonale. His scan in June did not show any consolidation. Creatinine increase, stop Lasix.Chest x-ray showed bilateral pulmonary edema with cardiomegaly, personally reviewed. Interestingly, recent echocardiogram showed an ejection fraction of 60-65% without any RVH but with mild LVH. LVEDP was 23 though. Seen by cardiology, likely pulmonary at this point. Consult pulmonology. non-STEMI: No chest pain but troponin is higher 0.26. Trend remained flat. Echocardiogram showed ejection fraction of 60-65%. Status post cardiac catheterization 07/28/16, successful PCI to mid right coronary artery. EKG personally reviewed showed nonspecific ST-T wave changes, sinus rhythm. Left ventricular and diastolic dysfunction, LVEDP 23. Noncardiac. Likely secondary to recent PCI per cardiology, cardiology signing off, continue antihypertensives, Coreg, aspirin, Plavix, Coumadin, losartan Uncontrolled HTN: Uncontrolled again, continue Procardia, clonidine, Coreg, Imdur, hydralazine, hold hydrochlorothiazide for now, restart losartan. If no improvement, add Norvasc. DM: Sliding scale w/ Accu-Cheks. Continue home Lantus. Likely chronic kidney disease stage IV-monitor creatinine, monitor BMP. Stop Lasix, hold hydrochlorothiazide for now H/o DVT: On Coumadin 13mg qd. Continue, monitor INR. Chronic Pain: multiple ER presentations for pain, h/o drug seeking behavior. Resume home medications. Likely with sleep apnea- securities sales associate has seen the patient previously, finished baseline thyroid function test, PFTs, and ABG. Might need home oxygen and discharge, C Pap at night, consult pulmonology DVT Prophylaxis: Coumadin, Lovenox while INR subtherapeutic. Zaheer Peter MD Jul 31, 2016 10:29
[2016-07-31] MEDS: LOSARTAN 50 MG TAB PO SCH (11:18)
[2016-07-31] MEDS: WARFARIN SOD 10 MG TAB PO SCH (16:41)
[2016-07-31] MEDS: WARFARIN SOD 3 MG TAB PO SCH (16:41)
--- NOTE | 2016-07-31 22:13 | MB ---
cc: TAD MELENDEZ MD DATE OF CONSULTATION 07/31/[address] Brittani Schwab REASON FOR CONSULTATION Evaluate for shortness of breath. HISTORY OF THE PRESENT ILLNESS Mr. William is a 61-year-old morbidly obese -[place] male with history of hypertension, coronary artery disease status post recent stent placed. He came back with chest pain. Did not have any significant shortness of breath. No wheezing or tightness in the chest. No seizure, stroke or epilepsy. He worked up in the hospital. His WBC count is 3.7, hemoglobin 11.3, hematocrit 34.5, MCV 78, platelet count 142. Sodium 143, potassium 3.9, chloride 105, CO2 31, BUN 25, creatinine 1.55. IMAGING Chest x-ray shows no acute infiltrate. His recent CT of the chest did not show any pulmonary embolism and V/Q SCAN was low probability for pulmonary embolism. PAST MEDICAL HISTORY His past medical history is significant for: 1. A history of coronary artery disease status post stent placed. 2. Peripheral arterial disease status post surgery on his left leg. 3. Morbid obesity. 4. Hypertension. 5. Sleep apnea. MEDICATIONS He is currently takin. Imdur 60 mg a day. 2. Coreg 100 milligrams daily. 3. Coumadin 10 mg a day. 4. Hydralazine 75 mg q.6h. 5. Aspirin 81 mg a day. 6. Lipitor 80 milligrams daily. 7. Coreg 25 mg twice a day. 8. Plavix 75 mg a day. 9. Neurontin 800 milligrams q.12h. 10. He is on insulin Detemir 60 units twice a day. 11. Orphenadrine 100 milligrams twice a day. ALLERGIES HE IS ALLERGIC TO DAWIT INHIBITOR, CLONIDINE, DILAUDID, VASOTEC. SOCIAL HISTORY He is for 27 years. Has a history of smoking which he quit 10 years ago. 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 FAMILY HISTORY He has four children. REVIEW OF SYSTEMS Normal activity does not bother him. It is stable. He denies any seizure, stroke or epilepsy. He has history of DVT in the past. PHYSICAL EXAMINATION GENERAL: Morbidly obese male in no acute distress. VITAL SIGNS: Blood pressure 177/81, heart rate 73, respirations 20, temperature 98.2. HEENT: Pupils are equal and reactive to light. He has bilateral cataracts. Oral mucosa, nasal mucosa normal. NECK: Supple. JVP not raised. CHEST: Air entry equal bilaterally. No rhonchi. CARDIOVASCULAR: S1, S2 normal. ABDOMEN: Benign. EXTREMITIES: No edema. IMPRESSION 1. Shortness of breath, need to rule out underlying restrictive lung disease. He had a recent V/Q scan and CT scan of the chest were negative. 2. Coronary artery disease and status post stent placement. 3. Diabetes mellitus. 4. Hypertension. 5. Renal insufficiency. 6. Morbid obesity and sleep apnea. PLAN I discussed with him to consider using a CPAP machine. He has seen Dr. Evangelista and he will follow up with him. I will check his pulmonary function study, monitor his blood sugar and blood pressure. Cardiac is workup is underway. Further treatment will depend on the course in the hospital. Thank you Dr. Schwab for this consultation. MD SUJEY Awad/EJ /6:37 PM /10:00 PM
[2016-07-31] MEDS: ZOLPIDEM TARTRATE 10 MG TAB PO PRN (22:35)
[2016-08-01] VITALS (8 sets, daily range): BP systolic 136–170; BP diastolic 65–88; PULSE 61–74; RESP 16–18; TEMP 98–98.2; O2SAT 91–95
[2016-08-01] MEDS: MORPHINE SULFATE 4 MG/ML INJ IV PRN ×7 (02:55→23:31)
[2016-08-01] MEDS: hydrALAZINE HCL 50 MG TAB PO SCH ×4 (05:58→23:31)
[2016-08-01] MEDS: ISOSORBIDE MONONITRATE 60 MG TAB PO SCH (05:58)
[2016-08-01] MEDS: INSULIN ASPART SUPPLEMENTAL SCALE SQ SCH ×4 (05:59→20:06)
[2016-08-01 07:22] LABS: INTERNATIONAL NORMALIZED RATIO 1.2 RATIO; PROTHROMBIN TIME - PATIENT 13.4 SEC (9.8-11.6)
[2016-08-01 07:39] LABS: BICARBONATE 29.8 MEQ/L (21.0-32.0); POTASSIUM 3.8 MEQ/L (3.5-5.1)
--- NOTE | 2016-08-01 08:59 | HHI.PR ---
Subjective Remarks f/u HTN, respiratory failure No further episodes of shortness of breath are paroxysmal dyspnea. Blood pressure still elevated, 150s to 170s, no headache, no focal deficits. Objective Vitals Vital Signs Date Time Temp Pulse Resp B/P Pulse Ox O2 Delivery O2 Flow Rate FiO2 08/01/16 08:00 98.0 64 16 136/65 95 08/01/16 04:55 93 21 08/01/16 04:00 98.2 69 18 169/79 91 08/01/16 00:30 93 3.00 08/01/16 00:00 98.2 63 17 155/76 94 07/31/16 20:00 74 07/31/16 20:00 98.1 74 18 182/69 92 07/31/16 14:30 98.2 73 20 177/81 92 07/31/16 12:42 18 07/31/16 12:15 93 07/31/16 12:00 57 07/31/16 11:00 98.5 59 18 149/99 92 07/31/16 11:00 63 07/31/16 10:00 70 07/31/16 09:00 65 I/O 07/31/16 07/31/16 07/31/16 08/01/16 08/01/16 08/01/16 07:00 15:00 23:00 07:00 15:00 23:00 Intake Total 240 ml 480 ml Balance 240 ml 480 ml Intake Oral 240 ml 480 ml # Voids 2 2 # Bowel Movements 0 0 Result Diagram: 07/31/16 0437 08/01/16 0633 Objective Remarks GENERAL: This is a well-nourished, well-developed patient, in no apparent distress. Obese. EYES: Pupils equal round and reactive. Extraocular motions intact. No scleral icterus. No injection or drainage. ENT: Airway patent. NECK: Trachea midline. Supple neck CARDIOVASCULAR: Regular rate and rhythm, no murmurs appreciated RESPIRATORY: Decreased breath sounds symmetrically, bilateral crackles at both bases. GASTROINTESTINAL: Abdomen soft, non-tender, nondistended. No hepato-splenomegaly , or palpable masses. No guarding. MUSCULOSKELETAL: Extremities without clubbing, cyanosis, 1+ edema. NEUROLOGICAL: Awake and alert. Cranial nerves II through XII intact. Motor and sensory grossly within normal limits. Five out of 5 muscle strength in all muscle groups. Normal speech. A/P Assessment and Plan This is a 61 year-old male with history of diabetes presented with shortness of breath Respiratory failure secondary to Flash pulmonary edema, diastolic congestive heart failure versus pulmonary causes-likely multifactorial secondary to hypertensive emergency, may also have an element of cor pulmonale. His scan in June did not show any consolidation. Creatinine increase, stop Lasix.Chest x-ray showed bilateral pulmonary edema with cardiomegaly, personally reviewed. Interestingly, recent echocardiogram showed an ejection fraction of 60-65% without any RVH but with mild LVH. LVEDP was 23 though. Seen by cardiology, likely pulmonary at this point. Pulmonary following, for repeat pulmonary function test, further management per pulmonary. non-STEMI: No chest pain but troponin is higher 0.26. Trend remained flat. Echocardiogram showed ejection fraction of 60-65%. Status post cardiac catheterization 07/28/16, successful PCI to mid right coronary artery. EKG personally reviewed showed nonspecific ST-T wave changes, sinus rhythm. Left ventricular and diastolic dysfunction, LVEDP 23. Noncardiac. Likely secondary to recent PCI per cardiology, cardiology signing off, continue antihypertensives, Coreg, aspirin, Plavix, Coumadin, losartan Uncontrolled HTN: Uncontrolled again, continue Procardia, clonidine, Coreg, Imdur, hydralazine, Cory losartan. Add Norvasc. Had a poor thiazide on hold. DM: Sliding scale w/ Accu-Cheks. Continue home Lantus. Likely chronic kidney disease stage IV-monitor creatinine, monitor BMP. Stop Lasix, hold hydrochlorothiazide for now H/o DVT: On Coumadin 13mg qd. Continue, monitor INR. Obstructive sleep apnea-less sleepy, less forgetful, continue Cipro, patient would sit up as outpatient, to schedule an appointment with the sleep clinic. Chronic Pain: multiple ER presentations for pain, h/o drug seeking behavior. Resume home medications. Likely with sleep apnea- x ray consultant has seen the patient previously, finished baseline thyroid function test, PFTs, and ABG. Might need home oxygen and discharge, C Pap at night, consult pulmonology DVT Prophylaxis: Coumadin, Lovenox while INR subtherapeutic. Discharge Planning Discharge today or tomorrow once cleared by pulmonary. Zaheer Peter MD Aug 01, 2016 08:59
[2016-08-01] MEDS ORDERED: amLODIPine BESYLATE 5 MG TAB PO SCH (09:00)
--- NOTE | 2016-08-01 09:01 | HHI.FF ---
Face to Face Verification Diagnosis: (1) Hypoxemia (2) GERBER (obstructive sleep apnea) Home Health Nursing Order: Medical education Oxygen administration education Nursing assessment with vital signs I have seen patient Elvin William on 08/01/16. My clinical findings support the need for the requested home health care services because: Patient has SOB I certify that my clinical findings support that this patient is homebound because: Hx COPD- exertion dyspnea/weakness Unsafe to leave home unassisted Poor cardiac reserve Zaheer Peter MD Aug 01, 2016 09:01
[2016-08-01] MEDS ORDERED: AMLO5 PO (09:05)
[2016-08-01] MEDS ORDERED: OXYGENTANK NAS.CANULA (09:05)
[2016-08-01] MEDS ORDERED: HYDR50TA15 PO (09:05)
[2016-08-01] MEDS ORDERED: ISOS60TA PO (09:05)
[2016-08-01] MEDS ORDERED: Aspirin Chew CHEW (09:05)
[2016-08-01] MEDS: CARVEDILOL 12.5 MG TAB PO SCH ×2 (09:09→21:52)
[2016-08-01] MEDS: GABAPENTIN 400 MG CAP PO SCH ×2 (09:09→20:08)
[2016-08-01] MEDS: LOSARTAN 50 MG TAB PO SCH (09:09)
--- NOTE | 2016-08-01 09:09 | HHI.DS ---
Discharge Summary Admission Date Jul 30, 2016 at 03:53 Discharge Date: Aug 02, 2016 Admitting Diagnosis Elevated TN, SOB (1) Hypertension ICD Code: I10 Diagnosis: Principal (2) GERBER (obstructive sleep apnea) ICD Code: G47.33 Diagnosis: Principal (3) Hypoxemia ICD Code: R09.02 Diagnosis: Secondary Procedures None Brief History - From Admission This is a 61 year-old male with history of diabetes, coronary artery disease, hypertension, who initially presented with chest pain a few days ago, mild troponin elevation EKG was unremarkable. Previous stress test in May 2016 was negative for ischemia. Patient had ongoing chest pain hence a cardiac catheterization was done, as patient status post PCI to mid right coronary artery. Echocardiogram showed an ejection fraction of 60-65%. Cardiology cleared the patient and recommended optimal medical management with Procardia, clonidine, Coreg, lisinopril, losartan, hydrochlorothiazide and hydralazine. Pulmonary was also consulted for evaluation of sleep apnea. Patient was doing well, was discharged yesterday. Was doing fine until last evening when he showered, went back to bed and became short of breath, wheezing, and nonproductive cough. Patient denies any chest pain, lightheadedness, diaphoresis. No fever or chills. Patient shortness of breath was worse when he is coughing and when he is yawning. Presently, patient's breathing is better. CBC/BMP: 07/31/16 0437 08/01/16 0633 Significant Findings Laboratory Tests Test 07/30/16 07/30/16 07/30/16 07/30/16 01:00 01:50 10:51 14:48 White Blood Count 3.1 TH/MM3 (4.0-11.0) Red Blood Count 3.95 MIL/MM3 (4.50-5.90) Hemoglobin 11.4 GM/DL (13.0-17.0) Hematocrit 31.1 % (39.0-51.0) Mean Corpuscular Volume 78.7 FL (80.0-100.0) Mean Corpuscular Hemoglobin 36.6 % Concent (32.0-36.0) Red Cell Distribution Width 19.2 % (11.6-17.2) Monocytes (%) (Auto) 9.9 % (0.0-8.0) Lymphocytes # (Auto) 0.7 TH/MM3 (1.0-4.8) Chloride Level 110 MEQ/L (98-107) Blood Urea Nitrogen 29 MG/DL (7-18) Creatinine 1.47 MG/DL (0.60-1.30) Estimat Glomerular Filtration 59 ML/MIN (>89) Rate Random Glucose 131 MG/DL (74-106) Troponin I 0.26 NG/ML 0.26 NG/ML 0.24 NG/ML (0.02-0.05) (0.02-0.05) (0.02-0.05) Test 07/31/16 08/01/16 04:37 06:33 White Blood Count 3.7 TH/MM3 (4.0-11.0) Red Blood Count 4.38 MIL/MM3 (4.50-5.90) Hemoglobin 11.3 GM/DL (13.0-17.0) Hematocrit 34.5 % (39.0-51.0) Mean Corpuscular Volume 78.8 FL (80.0-100.0) Mean Corpuscular Hemoglobin 25.9 PG (27.0-34.0) Red Cell Distribution Width 18.0 % (11.6-17.2) Platelet Count 142 TH/MM3 (150-450) Monocytes (%) (Auto) 14.1 % (0.0-8.0) Eosinophils (%) (Auto) 5.0 % (0.0-4.0) Neutrophils # (Auto) 1.7 TH/MM3 (1.8-7.7) Blood Urea Nitrogen 25 MG/DL (7-18) 26 MG/DL (7-18) Creatinine 1.55 MG/DL 1.58 MG/DL (0.60-1.30) (0.60-1.30) Estimat Glomerular Filtration 56 ML/MIN (>89) 55 ML/MIN (>89) Rate Random Glucose 219 MG/DL 254 MG/DL (74-106) (74-106) Calcium Level 8.4 MG/DL 8.4 MG/DL (8.5-10.1) (8.5-10.1) Total Protein 6.2 GM/DL (6.4-8.2) Albumin 2.9 GM/DL (3.4-5.0) Prothrombin Time 13.4 SEC (9.8-11.6) PE at Discharge GENERAL: This is a well-nourished, well-developed patient, in no apparent distress. Obese. EYES: Pupils equal round and reactive. Extraocular motions intact. No scleral icterus. No injection or drainage. ENT: Airway patent. NECK: Trachea midline. Supple neck CARDIOVASCULAR: Regular rate and rhythm, no murmurs appreciated RESPIRATORY: Decreased breath sounds symmetrically, bilateral crackles at both bases. GASTROINTESTINAL: Abdomen soft, non-tender, nondistended. No hepato-splenomegaly , or palpable masses. No guarding. MUSCULOSKELETAL: Extremities without clubbing, cyanosis, 1+ edema. NEUROLOGICAL: Awake and alert. Cranial nerves II through XII intact. Motor and sensory grossly within normal limits. Five out of 5 muscle strength in all muscle groups. Normal speech. Pt update on day of discharge no overnight events, BP was still high yesterday, no headache, cp or sob. No SOB Hospital Course This is a 61 year-old male with history of diabetes presented with shortness of breath. Patient was found to be in hypoxic respiratory failure secondary to possible flash pulmonary edema from diastolic congestive heart failure and sleep apnea. 7 element of hypertensive emergency. Patient was restarted on his home antihypertensives, Norvasc and Imdur were added. Nifedipine was stopped. Chest x-ray showed bilateral pulmonary edema with cardiomegaly, personally reviewed. Interestingly, recent echocardiogram showed an ejection fraction of 60-65% without any RVH but with mild LVH. LVEDP was 23 though. She was diuresed with Lasix. Cardiology and pulmonary were consulted. Per pulmonary, repeat pulmonary function test, further management per pulmonary., Follow-up with them in 1 week. Patient might need oxygen on discharge. Patient also had mild troponin elevation but troponin remained flat. Echocardiogram showed ejection fraction of 60-65%. Status post cardiac catheterization 07/28/16, successful PCI to mid right coronary artery. EKG personally reviewed showed nonspecific ST-T wave changes, sinus rhythm. Left ventricular and diastolic dysfunction, LVEDP 23. Noncardiac. Likely secondary to recent PCI per cardiology, cardiology signed off, continue antihypertensives, Coreg, aspirin, Plavix, Coumadin, losartan. For his blood pressure, patient will continue increased dose of hydralazine, Imdur, Norvasc, losartan, hydrochlorothiazide and Coreg. Pt Condition on Discharge: Good Discharge Disposition: Disch w/ Home Health Serv Discharge Time: > 30 minutes Discharge Instructions DIET: Follow Instructions for: Heart Healthy Diet Activities you can perform: Regular-No Restrictions Follow up Referrals: Pulmonology - 1 Week with Jean Carlos Evangelista MD New Medications: Oxygen tank (Oxygen tank) 1 Ea Tank 2 LITER LEONARD.CANULA CONTINUOUS Oxygen Concentrator Portable Gaseous 2 L/min via Nasal Cannula Continuous For 99 months HYPOXEMIA PREVENTION #1 CYLINDER Amlodipine (Norvasc) 10 Mg Tab 10 MG PO DAILY HTN #30 TAB Hydralazine (Hydralazine) 50 Mg Tab 75 MG PO Q6HR htn #120 TAB Hydrochlorothiazide (Hydrochlorothiazide) 50 Mg Tab 50 MG PO DAILY HTn #30 TAB Isosorbide Mononitrate ER (Isosorbide Mononitrate ER) 60 Mg Tab 60 MG PO DAILY@07 heart #30 TAB ([Aspirin Chew]) 81 MG CHEW 81 MG CHEW DAILY #30 TAB.CHEW Continued Medications: Atorvastatin (Lipitor) 40 Mg Tab 80 MG PO DAILY dyslipidemia #30 TAB Carvedilol (Coreg) 25 Mg Tab 25 MG PO BID #60 Ref 0 TAB Clopidogrel (Plavix) 75 Mg Tab 75 MG PO DAILY CAD #30 TAB Gabapentin (Gabapentin) 800 Mg Tab 800 MG PO TID #90 Ref 0 TAB Hydrochlorothiazide (Hydrochlorothiazide) 50 Mg Tab 50 MG PO DAILY #60 Ref 0 TAB Hydrocodone-Acetaminophen (Lortab) 10-325 Mg Tab 1 TAB PO Q4H PRN PAIN Ref 0 TAB Insulin Glargine Inj (Lantus Inj) 1,000 Unit/10 Ml Vial 60 UNITS SQ BID Blood Sugar Management Ref 0 VIAL Insulin Human Regular Inj (Novolin R Inj) 1,000 Unit/10 Ml Vial 0 SQ TIDACHS Sliding Scale As Directed. Blood Sugar Management #10 Ref 0 ML Losartan (Cozaar) 50 Mg Tab 100 MG PO DAILY HTN #30 TAB Metoclopramide (Metoclopramide) 5 Mg Tab 5 MG PO TIDAC Ref 0 TAB Nitroglycerin SL (Nitroglycerin SL) 0.4 Mg Subl 0.4 MG SL DIRECTED ONE TABLET UNDER THE TONGUE NEEDED FOR CHEST PAIN, MAY REPEAT EVERY FIVE MINUTES FOR A TOTAL OF 3 DOSES OR CALL 911 IF NO RELIEF PRN CHEST PAIN #100 Ref 0 TAB.SL Orphenadrine ER 12 HR (Orphenadrine ER 12 HR) 100 Mg Tab 100 MG PO BID Muscle Spasm TAB Potassium Chloride ER (K-Tab) 20 Meq Tab 20 MEQ PO DAILY Electrolyte Replacement #30 Ref 0 TAB Warfarin (Warfarin) 10 Mg Tab 13 MG PO DAILY Blood Clot Prevention #30 Ref 0 TAB Zolpidem (Ambien) 10 Mg Tab 10 MG PO HS PRN INSOMNIA Ref 0 TAB ([Aspirin Chew]) 81 MG CHEW 81 MG PO DAILY heart Days 30 TAB.CHEW Discontinued Medications: Clonidine (Catapres) 0.1 Mg Tab 0.1 MG PO Q12HR htn #60 TAB Hydralazine (Hydralazine) 50 Mg Tab 50 MG PO Q6HR HTN #120 TAB Nifedipine (Nifedipine ER) 90 Mg Tab 90 MG PO DAILY HTN #30 TAB Zaheer Peter MD Aug 01, 2016 09:09
[2016-08-01] MEDS: CLOPIDOGREL 75 MG TAB PO SCH (09:10)
[2016-08-01] MEDS: ATORVASTATIN 80 MG TAB PO SCH (09:10)
[2016-08-01] MEDS: ORPHENADRINE CITRATE 100 MG SUSTAINED RELEASE TAB PO SCH ×2 (09:10→20:07)
[2016-08-01] MEDS: ASPIRIN 81 MG CHEW TAB CHEW SCH (09:10)
[2016-08-01] MEDS: DOCUSATE SODIUM 50 MG/SENNA 8.6 MG TAB PO SCH ×2 (09:11→20:07)
[2016-08-01] MEDS: INSULIN DETEMIR 100 UNITS/ML VIAL SQ SCH ×2 (09:11→20:06)
[2016-08-01] MEDS: SODIUM CHLORIDE 0.9% FLUSH 5 ML FLUSH FLUSH SCH ×2 (09:14→20:08)
[2016-08-01] MEDS: POLYETHYLENE GLYCOL 17 GM PKG PO SCH (09:15)
[2016-08-01] MEDS ORDERED: HYDROCHLOROTHIAZIDE 25 MG TAB PO ONE (15:45)
[2016-08-01] MEDS ORDERED: amLODIPine BESYLATE 5 MG TAB PO ONE (15:45)
[2016-08-01] MEDS: WARFARIN SOD 3 MG TAB PO SCH (16:00)
[2016-08-01] MEDS: WARFARIN SOD 10 MG TAB PO SCH (16:00)
--- NOTE | 2016-08-01 17:56 | HHI.PR ---
Subjective Remarks 61 YO Morbidly obese male with SOB Feels better No CP No Cough or sp Objective Vital Signs Vital Signs Date Time Temp Pulse Resp B/P Pulse Ox O2 Delivery O2 Flow Rate FiO2 08/01/16 08:00 98.0 64 16 136/65 95 08/01/16 08:00 74 08/01/16 04:55 93 21 08/01/16 04:00 98.2 69 18 169/79 91 08/01/16 00:30 93 3.00 08/01/16 00:00 98.2 63 17 155/76 94 07/31/16 20:00 74 07/31/16 20:00 98.1 74 18 182/69 92 I/O 07/31/16 07/31/16 07/31/16 08/01/16 08/01/16 08/01/16 07:00 15:00 23:00 07:00 15:00 23:00 Intake Total 240 ml 480 ml 400 ml Balance 240 ml 480 ml 400 ml Intake Oral 240 ml 480 ml 400 ml # Voids 2 2 # Bowel Movements 0 0 Result Diagram: 07/31/16 0437 08/01/16 0633 Objective Remarks GENERAL: Morbidly obese male,NAD SKIN: Warm and dry. HEAD: Normocephalic. EYES: No scleral icterus. No injection or drainage. NECK: Supple, trachea midline. No JVD or lymphadenopathy. CARDIOVASCULAR: Regular rate and rhythm without murmurs, gallops, or rubs. RESPIRATORY: Breath sounds equal bilaterally. No accessory muscle use. GASTROINTESTINAL: Abdomen soft, non-tender, nondistended. MUSCULOSKELETAL: No cyanosis, or edema. BACK: Nontender without obvious deformity. No CVA tenderness. A/P Assessment and Plan Dysnoea with morbid obesity, likly restrictive dis GERBER Morbid 0besity CAD PLAN: Wean off 02 Advised to loose wt Sleep study as out pat DC plan for home Marcelo Keys MD Aug 01, 2016 17:55
[2016-08-01] MEDS: ZOLPIDEM TARTRATE 10 MG TAB PO PRN (23:31)
[2016-08-02] VITALS (8 sets, daily range): BP systolic 133–164; BP diastolic 63–86; PULSE 55–65; RESP 18–20; TEMP 97.4–98; O2SAT 93–97
[2016-08-02] MEDS: MORPHINE SULFATE 4 MG/ML INJ IV PRN ×3 (04:23→11:24)
[2016-08-02] MEDS: INSULIN ASPART SUPPLEMENTAL SCALE SQ SCH ×2 (06:19→11:25)
[2016-08-02] MEDS: hydrALAZINE HCL 50 MG TAB PO SCH ×2 (06:19→11:22)
[2016-08-02] MEDS: ISOSORBIDE MONONITRATE 60 MG TAB PO SCH (06:19)
[2016-08-02] MEDS: POLYETHYLENE GLYCOL 17 GM PKG PO SCH (08:31)
[2016-08-02] MEDS: DOCUSATE SODIUM 50 MG/SENNA 8.6 MG TAB PO SCH (08:31)
[2016-08-02] MEDS: ORPHENADRINE CITRATE 100 MG SUSTAINED RELEASE TAB PO SCH (08:31)
[2016-08-02] MEDS: ASPIRIN 81 MG CHEW TAB CHEW SCH (08:32)
[2016-08-02] MEDS: CARVEDILOL 12.5 MG TAB PO SCH (08:32)
[2016-08-02] MEDS: LOSARTAN 50 MG TAB PO SCH (08:32)
[2016-08-02] MEDS: CLOPIDOGREL 75 MG TAB PO SCH (08:32)
[2016-08-02] MEDS: ATORVASTATIN 80 MG TAB PO SCH (08:32)
[2016-08-02] MEDS: GABAPENTIN 400 MG CAP PO SCH (08:32)
[2016-08-02] MEDS: SODIUM CHLORIDE 0.9% FLUSH 5 ML FLUSH FLUSH SCH (08:33)
[2016-08-02] MEDS ORDERED: HYDR50TA3 PO (08:34)
[2016-08-02] MEDS ORDERED: AMLO10 PO (08:34)
--- NOTE | 2016-08-02 08:38 | HHI.PR ---
Subjective Remarks f/u htn no cp, no sob, no deficits Objective Vitals Vital Signs Date Time Temp Pulse Resp B/P Pulse Ox O2 Delivery O2 Flow Rate FiO2 08/02/16 07:36 96 08/02/16 07:36 97 21 08/02/16 04:39 96 21 08/02/16 03:58 97.4 60 18 133/63 97 08/02/16 01:26 97 21 08/02/16 00:20 98.0 65 18 164/86 94 08/01/16 21:32 98.1 69 18 170/88 94 08/01/16 16:00 98.1 61 16 167/86 94 I/O 08/01/16 08/01/16 08/01/16 08/02/16 08/02/16 08/02/16 07:00 15:00 23:00 07:00 15:00 23:00 Intake Total 400 ml 950 ml 960 ml Balance 400 ml 950 ml 960 ml Intake Oral 400 ml 950 ml 960 ml # Voids 4 3 # Bowel Movements 0 0 Result Diagram: 07/31/16 0437 08/01/16 0633 Objective Remarks GENERAL: This is a well-nourished, well-developed patient, in no apparent distress. Obese. EYES: Pupils equal round and reactive. Extraocular motions intact. No scleral icterus. No injection or drainage. ENT: Airway patent. NECK: Trachea midline. Supple neck CARDIOVASCULAR: Regular rate and rhythm, no murmurs appreciated RESPIRATORY: Decreased breath sounds symmetrically, bilateral crackles at both bases. GASTROINTESTINAL: Abdomen soft, non-tender, nondistended. No hepato-splenomegaly , or palpable masses. No guarding. MUSCULOSKELETAL: Extremities without clubbing, cyanosis, 1+ edema. NEUROLOGICAL: Awake and alert. Cranial nerves II through XII intact. Motor and sensory grossly within normal limits. Five out of 5 muscle strength in all muscle groups. Normal speech. Procedures None A/P Problem List: (1) Hypertension ICD Code: I10 Status: Chronic (2) GERBER (obstructive sleep apnea) ICD Code: G47.33 Status: Acute (3) Hypoxemia ICD Code: R09.02 Status: Acute Assessment and Plan This is a 61 year-old male with history of diabetes presented with shortness of breath Respiratory failure secondary to Flash pulmonary edema, diastolic congestive heart failure versus pulmonary causes-likely multifactorial secondary to hypertensive emergency, may also have an element of cor pulmonale. His scan in June did not show any consolidation. Creatinine increase, stop Lasix.Chest x-ray showed bilateral pulmonary edema with cardiomegaly, personally reviewed. Interestingly, recent echocardiogram showed an ejection fraction of 60-65% without any RVH but with mild LVH. LVEDP was 23 though. Seen by cardiology, likely pulmonary at this point. Pulmonary following, for repeat pulmonary function test, further management per pulmonary. non-STEMI: No chest pain but troponin is higher 0.26. Trend remained flat. Echocardiogram showed ejection fraction of 60-65%. Status post cardiac catheterization 07/28/16, successful PCI to mid right coronary artery. EKG personally reviewed showed nonspecific ST-T wave changes, sinus rhythm. Left ventricular and diastolic dysfunction, LVEDP 23. Noncardiac. Likely secondary to recent PCI per cardiology, cardiology signing off, continue antihypertensives, Coreg, aspirin, Plavix, Coumadin, losartan Uncontrolled HTN: Uncontrolled again, continue Procardia, clonidine, Coreg, Imdur, hydralazine, losartan, increase Norvasc, cont HCTZ DM: Sliding scale w/ Accu-Cheks. Continue home Lantus. Likely chronic kidney disease stage IV-monitor creatinine, monitor BMP. Add hydrochlorothiazide for now H/o DVT: On Coumadin 13mg qd. Continue, monitor INR. Obstructive sleep apnea-less sleepy, less forgetful, continue Cipro, patient would sit up as outpatient, to schedule an appointment with the sleep clinic. Chronic Pain: multiple ER presentations for pain, h/o drug seeking behavior. Resume home medications. Likely with sleep apnea- gas singer has seen the patient previously, finished baseline thyroid function test, PFTs, and ABG. Might need home oxygen and discharge, C Pap at night, consult pulmonology DVT Prophylaxis: Coumadin, Lovenox while INR subtherapeutic. Discharge Planning Discharge today if BP <160 Zaheer Peter MD Aug 02, 2016 08:38
[2016-08-02] MEDS: INSULIN DETEMIR 100 UNITS/ML VIAL SQ SCH (08:49)
[2016-08-02] MEDS ORDERED: HYDROCHLOROTHIAZIDE 50 MG TAB PO SCH (09:00)
--- NOTE | 2016-08-02 09:44 | RSPPFT ---
DATE OF PROCEDURE: 08/01/16 COMMENTS: Spirometry shows FVC of 3.1 at 74% of predicted, FEV1 of 2.6 at 79%, FEV1;/FVC ratio is normal. Flow is normal at FEF 25-75. There is a paradoxical response after acutely inhaled bronchodilator treatment. IMPRESSION: 1. Mild restrictive lung disease. 2. Paradoxical response to bronchodilator treatment.
--- NOTE | 2016-08-02 11:11 | HHI.PR ---
Subjective Remarks 61 YO Morbidly obese male with SOB Feels better No CP No Cough or sp BP better controlled Objective Vital Signs Vital Signs Date Time Temp Pulse Resp B/P Pulse Ox O2 Delivery O2 Flow Rate FiO2 08/02/16 10:18 55 08/02/16 08:35 18 08/02/16 08:00 97.7 58 20 161/80 94 08/02/16 07:36 96 08/02/16 07:36 97 21 08/02/16 04:39 96 21 08/02/16 03:58 97.4 60 18 133/63 97 08/02/16 01:26 97 21 08/02/16 00:20 98.0 65 18 164/86 94 08/01/16 21:32 98.1 69 18 170/88 94 08/01/16 20:19 63 08/01/16 16:00 98.1 61 16 167/86 94 I/O 08/01/16 08/01/16 08/01/16 08/02/16 08/02/16 08/02/16 07:00 15:00 23:00 07:00 15:00 23:00 Intake Total 400 ml 950 ml 960 ml Balance 400 ml 950 ml 960 ml Intake Oral 400 ml 950 ml 960 ml # Voids 4 3 # Bowel Movements 0 0 Result Diagram: 07/31/16 0437 08/01/16 0633 Objective Remarks GENERAL: Morbidly obese male,NAD SKIN: Warm and dry. HEAD: Normocephalic. EYES: No scleral icterus. No injection or drainage. NECK: Supple, trachea midline. No JVD or lymphadenopathy. CARDIOVASCULAR: Regular rate and rhythm without murmurs, gallops, or rubs. RESPIRATORY: Breath sounds equal bilaterally. No accessory muscle use. GASTROINTESTINAL: Abdomen soft, non-tender, nondistended. MUSCULOSKELETAL: No cyanosis, or edema. BACK: Nontender without obvious deformity. No CVA tenderness. A/P Assessment and Plan Dysnoea with morbid obesity, likly restrictive dis GERBER Morbid 0besity CAD PLAN: Stable on RA Advised to loose wt Sleep study as out pat DC plan for home FU in office Marcelo Keys MD Aug 02, 2016 11:11
== END 2016-08-02 12:31 | disposition home health service (06) | DRG 291 ==
LOC: NEPC 00:03 → NEDA 03:53 → HCIS 05:47 → N04A 07-31 14:40
PROVIDERS: ADMIT Hospitalist; ATTEND Hospitalist
DX: I13.0 Hypertensive heart and chronic kidney disease with heart failure and stage 1 through stage 4 chronic kidney disease, or unspecified chronic kidney disease (principal); J96.91 Respiratory failure, unspecified with hypoxia; I27.2 Other secondary pulmonary hypertension; N18.4 Chronic kidney disease, stage 4 (severe); E11.22 Type 2 diabetes mellitus with diabetic chronic kidney disease; I27.81 Cor pulmonale (chronic); I50.30 Unspecified diastolic (congestive) heart failure; I16.1 Hypertensive emergency; E66.01 Morbid (severe) obesity due to excess calories; I25.2 Old myocardial infarction; I73.9 Peripheral vascular disease, unspecified; I25.10 Atherosclerotic heart disease of native coronary artery without angina pectoris; D57.3 Sickle-cell trait; G47.33 Obstructive sleep apnea (adult) (pediatric); Z79.01 Long term (current) use of anticoagulants; Z79.4 Long term (current) use of insulin; Z86.718 Personal history of other venous thrombosis and embolism; Z87.891 Personal history of nicotine dependence; Z88.5 Allergy status to narcotic agent; Z68.39 Body mass index [BMI] 39.0-39.9, adult; Z86.711 Personal history of pulmonary embolism; Z91.19 Patient's noncompliance with other medical treatment and regimen; Z95.5 Presence of coronary angioplasty implant and graft; Z96.642 Presence of left artificial hip joint
CPT/HCPCS: 71020; 80048; 80053; 82550; 82552; 82948; 83735; 83880; 84484; 85025; 85610; 85730; 93005; 94003; 94060; 94620; J1815; J1885; J1940; J2270; J2405

== ENCOUNTER 2016-08-09 16:30 | Observation (INO) | payer OTHER, MEDICAID ==
[~2016-08-09] VITALS: Ht 175.3 cm; Wt 120.0 kg
[~2016-08-09 16:30] MED LIST changes: +AMLO10 PO; +Aspirin Chew CHEW; -CLON.1 PO; +ISOS60TA PO; -NIFE90TA2 PO
[2016-08-09 16:32] VITALS: BP 199/92; PULSE 79; RESP 12; TEMP 98.2; O2SAT 94
--- NOTE | 2016-08-09 17:05 | PD ---
HPI Chief Complaint: Chest Pain Time Seen by Provider: 17:05 Travel History International Travel<30 days: No Contact w/Intl Traveler<30days: No Traveled to known affect area: No History of Present Illness HPI 61-year-old male with history of CVA, CAD, hypertension, AAA repair, stent placement last week by Dr. Brooks, presents to emergency department for evaluation of chest pain, left-sided that radiates into his neck. Patient states that this started eating bad around 2:00 this afternoon. No shortness of breath associated with it. No nausea or vomiting. No recent illnesses, fever, chills. No other symptoms to report. PFSH Past Medical History Hx Anticoagulant Therapy: Yes AAA: Yes (JUL 2011/ ) Anemia: Yes Arthritis: No Asthma: No Autoimmune Disease: No Blood Disorders: Yes (SICKLE CELL TRAIT) Anxiety: No Depression: No Heart Rhythm Problems: No Cancer: No Cardiac Catheterization: Yes Cardiovascular Problems: Yes High Cholesterol: Yes Chemotherapy: No Chest Pain: Yes Congestive Heart Failure: No COPD: No Cerebrovascular Accident: Yes Coronary Artery Disease: Yes Diabetes: Yes Diminished Hearing: No Deep Vein Thrombosis: Yes (LT LEG) Endocrine: Yes GERD: No Glaucoma: No Genitourinary: No Headaches: No Hepatitis: No Hiatal Hernia: No Heparin Induced Thrombocytopen: No Hypertension: Yes Immune Disorder: No Implanted Vascular Access Dvce: Yes (RIGHT INSULIN PUMP removed) Kidney Stones: No Musculoskeletal: Yes Neurologic: No Psychiatric: No Reproductive: No Respiratory: Yes Immunizations Current: Yes Migraines: No Myocardial Infarction: No Pancreatitis: Yes Radiation Therapy: No Renal Failure: No Seizures: No Sickle Cell Disease: Yes (TRAIT) Sleep Apnea: No Thyroid Disease: No Ulcer: No PNEUMOCCOCAL Vaccine (Year): 3 Past Surgical History Abdominal Aneurysm Repair: Yes (2012) Abdominal Surgery: Yes AICD: No Appendectomy: No Arteriovenous Shunt: No Body Medical Devices: STENTS X 4 Cardiac Surgery: Yes Cholecystectomy: Yes Coronary Artery Bypass Graft: No Coronary Stent: Yes (2009 X 2, 2010 X2) Ear Surgery: No Endocrine Surgery: No Eye Surgery: No Genitourinary Surgery: No Gynecologic Surgery: No Insulin Pump: Yes (removed) Joint Replacement: Yes (left hip) Neurologic Surgery: No Oral Surgery: No Pacemaker: No Thoracic Surgery: No Other Surgery: Yes (FEM-POP L LEG; ) Social History Alcohol Use: No Tobacco Use: No (QUIT 2005) Substance Use: No Allergies-Medications (Allergen,Severity, Reaction): Coded Allergies: DAWIT Inhibitors (Verified Allergy, Severe, ANGIOEDEMA, 07/24/16) Vasotec (Verified Allergy, Severe, 07/24/16) ANGIOEDEMA Clonidine (Verified Allergy, Mild, DRY MOUTH, 07/24/16) Dilaudid (Verified Adverse Reaction, Intermediate, ITCHING, 07/24/16) Reported Meds & Prescriptions Reported Meds & Active Scripts Active Norvasc (Amlodipine Besylate) 10 Mg Tab 10 Mg PO DAILY Isosorbide Mononitrate ER (Isosorbide Mononitrate) 60 Mg Tab 60 Mg PO DAILY@07 Hydralazine (Hydralazine HCl) 50 Mg Tab 75 Mg PO Q6HR Cozaar (Losartan Potassium) 50 Mg Tab 100 Mg PO DAILY Plavix (Clopidogrel Bisulfate) 75 Mg Tab 75 Mg PO DAILY Lipitor (Atorvastatin Calcium) 40 Mg Tab 80 Mg PO DAILY [Aspirin Chew] 81 MG Chew 81 Mg PO DAILY 30 Days Reported Warfarin 10 Mg Tab 13 Mg PO DAILY Lantus Inj (Insulin Glargine) 1,000 Unit/10 Ml Vial 60 Units SQ BID Metoclopramide (Metoclopramide HCl) 5 Mg Tab 5 Mg PO TIDAC Orphenadrine ER 12 HR (Orphenadrine Citrate) 100 Mg Tab 100 Mg PO BID Ambien (Zolpidem Tartrate) 10 Mg Tab 10 Mg PO HS PRN Novolin R Inj (Insulin Human Regular) 1,000 Unit/10 Ml Vial 0 SQ TIDACHS Sliding Scale As Directed. Nitroglycerin SL (Nitroglycerin) 0.4 Mg Subl 0.4 Mg SL DIRECTED PRN ONE TABLET UNDER THE TONGUE NEEDED FOR CHEST PAIN, MAY REPEAT EVERY FIVE MINUTES FOR A TOTAL OF 3 DOSES OR CALL 911 IF NO RELIEF Lortab (Hydrocodone-Acetaminophen) 10-325 Mg Tab 1 Tab PO Q4H PRN K-Tab (Potassium Chloride) 20 Meq Tab 20 Meq PO DAILY Hydrochlorothiazide 50 Mg Tab 50 Mg PO DAILY Coreg (Carvedilol) 25 Mg Tab 25 Mg PO BID Gabapentin 800 Mg Tab 800 Mg PO TID Review of Systems Except as stated in HPI: all other systems reviewed are Neg Physical Exam Narrative GENERAL: Well-nourished male patient, ambulatory no acute distress SKIN: Warm and dry. HEAD: Atraumatic. Normocephalic. EYES: Pupils equal and round. No scleral icterus. No injection or drainage. ENT: No nasal bleeding or discharge. Mucous membranes pink and moist. NECK: Trachea midline. No JVD. CARDIOVASCULAR: Regular rate and rhythm. No murmur appreciated. RESPIRATORY: No accessory muscle use. Clear to auscultation. Breath sounds equal bilaterally. GASTROINTESTINAL: Abdomen soft, non-tender, nondistended. Hepatic and splenic margins not palpable. MUSCULOSKELETAL: No obvious deformities. No clubbing. No cyanosis. No edema. NEUROLOGICAL: Awake and alert. No obvious cranial nerve deficits. Motor grossly within normal limits. Normal speech. PSYCHIATRIC: Appropriate mood and affect; insight and judgment normal. Data Data Last Documented VS Vital Signs Date Time Temp Pulse Resp B/P Pulse Ox O2 Delivery O2 Flow Rate FiO2 08/09/16 20:33 70 08/09/16 20:33 18 193/90 98 Room Air 08/09/16 16:32 98.2 Orders Electrocardiogram (08/09/16 17:04) Basic Metabolic Panel (Bmp) (08/09/16 17:04) Ckmb (Isoenzyme) Profile (08/09/16 17:04) Complete Blood Count With Diff (08/09/16 17:04) Magnesium (Mg) (08/09/16 17:04) Prothrombin Time / Inr (Pt) (08/09/16 17:04) Act Partial Throm Time (Ptt) (08/09/16 17:04) Troponin I (08/09/16 17:04) Chest, Single Ap (08/09/16 17:04) CKMB (08/09/16 17:20) CKMB% (08/09/16 17:20) Labs Laboratory Tests Test 08/09/16 17:20 White Blood Count 5.3 TH/MM3 Red Blood Count 4.70 MIL/MM3 Hemoglobin 12.0 GM/DL Hematocrit 36.4 % Mean Corpuscular Volume 77.4 FL Mean Corpuscular Hemoglobin 25.6 PG Mean Corpuscular Hemoglobin 33.1 % Concent Red Cell Distribution Width 17.5 % Platelet Count 177 TH/MM3 Mean Platelet Volume 8.2 FL Neutrophils (%) (Auto) 66.1 % Lymphocytes (%) (Auto) 17.6 % Monocytes (%) (Auto) 10.2 % Eosinophils (%) (Auto) 4.5 % Basophils (%) (Auto) 1.6 % Neutrophils # (Auto) 3.5 TH/MM3 Lymphocytes # (Auto) 0.9 TH/MM3 Monocytes # (Auto) 0.5 TH/MM3 Eosinophils # (Auto) 0.2 TH/MM3 Basophils # (Auto) 0.1 TH/MM3 CBC Comment DIFF FINAL Differential Comment Prothrombin Time 64.1 SEC Prothromb Time International 5.4 RATIO Ratio Activated Partial 43.3 SEC Thromboplast Time Sodium Level 142 MEQ/L Potassium Level 4.0 MEQ/L Chloride Level 106 MEQ/L Carbon Dioxide Level 28.8 MEQ/L Anion Gap 7 MEQ/L Blood Urea Nitrogen 24 MG/DL Creatinine 1.60 MG/DL Estimat Glomerular Filtration 54 ML/MIN Rate Random Glucose 277 MG/DL Calcium Level 8.5 MG/DL Magnesium Level 2.2 MG/DL Total Creatine Kinase 442 U/L Creatine Kinase MB 2.5 NG/ML Creatine Kinase MB % 0.6 % Troponin I 0.06 NG/ML MDM Medical Decision Making Medical Screen Exam Complete: Yes Emergency Medical Condition: Yes Medical Record Reviewed: Yes Differential Diagnosis ACS versus chest wall pain versus anxiety versus pleuritic pain Narrative Course 61-year-old male presents to emergency department for evaluation. He appears overall well and without distress. Workup was initiated in triage. Once a medical bed becomes available, patient will be transferred and care assumed by that provider. Condition: Stable PavelKaileyRebeccaike SCHNEIDER Aug 09, 2016 17:05
[2016-08-09 17:39] LABS: AUTOMATED NEUTROPHIL # 3.5 TH/MM3 (1.8-7.7); BASOPHIL # 0.1 TH/MM3 (0-0.2); BASOPHIL % 1.6 % (0.0-2.0); EOSINOPHIL # 0.2 TH/MM3 (0-0.4); EOSINOPHIL % 4.5 % (0.0-4.0); HEMATOCRIT 36.4 % (39.0-51.0); HEMO FLAGS DIFF FINAL; LYMPH % 17.6 % (9.0-44.0); LYMPHOCYTE # 0.9 TH/MM3 (1.0-4.8); MEAN CELL VOLUME 77.4 FL (80.0-100.0); MEAN CORPUSCULAR HEMOGLOBIN 25.6 PG (27.0-34.0); MEAN CORPUSCULAR HGB CONC 33.1 % (32.0-36.0); MONO % 10.2 % (0.0-8.0); NEUT % 66.1 % (16.0-70.0); PLATELET COUNT 177 TH/MM3 (150-450); RED CELL DISTRIBUTION WIDTH 17.5 % (11.6-17.2); WHITE BLOOD COUNT 5.3 TH/MM3 (4.0-11.0)
[2016-08-09 17:41] LABS: APTT (PATIENT) 43.3 SEC (24.3-30.1); INTERNATIONAL NORMALIZED RATIO 5.4 RATIO; PROTHROMBIN TIME - PATIENT 64.1 SEC (9.8-11.6)
[2016-08-09 17:50] LABS: BICARBONATE 28.8 MEQ/L (21.0-32.0); MAGNESIUM 2.2 MG/DL (1.5-2.5)
[2016-08-09 18:05] LABS: CKMB 2.5 NG/ML (0.5-3.6)
--- NOTE | 2016-08-09 18:09 | RADRPT ---
EXAM DATE/TIME: 08/09/2016 17:41 [facility] COMPARISON: CHEST SINGLE AP, July 24, 2016, 22:02. INDICATIONS : Chest pain for 2 days. MEDICAL HISTORY : Hypertension. Cardiovascular disease. SURGICAL HISTORY : Cardiovascular stent. ENCOUNTER: Initial ACUITY: 2 days PAIN SCORE: 8/10 LOCATION: Bilateral chest FINDINGS: A single view of the chest demonstrates the lungs to be symmetrically aerated without evidence of mas s, infiltrate or effusion. Minimal linear scarring within the left midlung. The cardiomediastinal co ntours are unremarkable. Osseous structures are intact. CONCLUSION: No acute disease. Niko Castillo Jr., MD on August 09, 2016 at 18:07 Board Certified Radiologist. This report was verified electronically.
--- NOTE | 2016-08-09 19:15 | EKG ---
Date Performed: 08/09/2016 Time Performed: 17:19:25 PTAGE: 61 years EKG: Sinus rhythm NORMAL ECG NO SIGNIFICANT CHANGE FROM PRIOR ELECTROCARDIOGRAM. PREVIOUS TRACING : 07/30/2016 00.52 DOCTOR: Maximo Townsend Interpretating Date/Time 08/09/2016 19:13:40
[2016-08-09 20:33] VITALS: BP 193/90; PULSE 66; RESP 18; O2SAT 98
--- NOTE | 2016-08-09 21:42 | PD ---
Physical Exam Narrative General: The patient is a well-developed well-nourished male in no acute distress. Head and Neck exam: Head is normocephalic atraumatic. Eyes: Pupils are equal round and reactive to light. Nose: Midline septum with pink mucous membranes Mouth: Dentition unremarkable. Moist mucus membranes. Posterior oropharynx is not erythematous. No tonsillar hypertrophy. Uvula midline. Airway patent. Neck: No palpable lymphadenopathy. No nuchal rigidity. No thyromegaly. Cardiovascular: Regular rate and rhythm without murmurs, gallops, or rubs. No pulse deficit to the extremities, and simultaneous auscultation and palpation of radial artery. Lungs: Clear to auscultation bilaterally. No wheezes, rhonchi, or rales. Abdomen: Soft, without tenderness to palpation in all 4 quadrants of the abdomen. No guarding, rebound, or rigidity. Normal bowel sounds are audible. Extremities: No clubbing or cyanosis. The patient has trace pitting edema bilateral lower extremities. 2+ pulses in all 4 extremities. Back: No spinous process tenderness to palpation. The patient reports having left- sided CVA tenderness on palpation. Neurologic Exam: Grossly nonfocal. Skin Exam: No rash noted. Intact skin that is warm and dry. Data Data Last Documented VS Vital Signs Date Time Temp Pulse Resp B/P Pulse Ox O2 Delivery O2 Flow Rate FiO2 08/09/16 21:50 82 18 165/77 99 Room Air 08/09/16 16:32 98.2 Orders Electrocardiogram (08/09/16 17:04) Basic Metabolic Panel (Bmp) (08/09/16 17:04) Ckmb (Isoenzyme) Profile (08/09/16 17:04) Complete Blood Count With Diff (08/09/16 17:04) Magnesium (Mg) (08/09/16 17:04) Prothrombin Time / Inr (Pt) (08/09/16 17:04) Act Partial Throm Time (Ptt) (08/09/16 17:04) Troponin I (08/09/16 17:04) Chest, Single Ap (08/09/16 17:04) CKMB (08/09/16 17:20) CKMB% (08/09/16 17:20) Creatine Kinase (Cpk) (08/09/16 21:21) Ckmb (Isoenzyme) Profile (08/09/16 21:21) Troponin I (08/09/16 21:21) Ct Abd/Pel W/O Iv Contrast (08/09/16 21:31) Urinalysis - C+S If Indicated (08/09/16 21:31) Aspirin Chew (Aspirin Chew) (08/09/16 21:45) Nitroglycerin 2% Oint (Nitroglycerin 2% (08/09/16 21:45) Nitroglycerin Sl (Nitrostat Sl) (08/09/16 21:45) Morphine Inj (Morphine Inj) (08/09/16 21:45) Orphenadrine Inj (Norflex Inj) (08/09/16 21:45) CKMB (08/09/16 21:27) CKMB% (08/09/16 21:27) Admit Order (Ed Use Only) (08/09/16 22:19) Labs Laboratory Tests Test 08/09/16 08/09/16 08/09/16 17:20 21:27 21:39 White Blood Count 5.3 TH/MM3 Red Blood Count 4.70 MIL/MM3 Hemoglobin 12.0 GM/DL Hematocrit 36.4 % Mean Corpuscular Volume 77.4 FL Mean Corpuscular Hemoglobin 25.6 PG Mean Corpuscular Hemoglobin 33.1 % Concent Red Cell Distribution Width 17.5 % Platelet Count 177 TH/MM3 Mean Platelet Volume 8.2 FL Neutrophils (%) (Auto) 66.1 % Lymphocytes (%) (Auto) 17.6 % Monocytes (%) (Auto) 10.2 % Eosinophils (%) (Auto) 4.5 % Basophils (%) (Auto) 1.6 % Neutrophils # (Auto) 3.5 TH/MM3 Lymphocytes # (Auto) 0.9 TH/MM3 Monocytes # (Auto) 0.5 TH/MM3 Eosinophils # (Auto) 0.2 TH/MM3 Basophils # (Auto) 0.1 TH/MM3 CBC Comment DIFF FINAL Differential Comment Prothrombin Time 64.1 SEC Prothromb Time International 5.4 RATIO Ratio Activated Partial 43.3 SEC Thromboplast Time Sodium Level 142 MEQ/L Potassium Level 4.0 MEQ/L Chloride Level 106 MEQ/L Carbon Dioxide Level 28.8 MEQ/L Anion Gap 7 MEQ/L Blood Urea Nitrogen 24 MG/DL Creatinine 1.60 MG/DL Estimat Glomerular Filtration 54 ML/MIN Rate Random Glucose 277 MG/DL Calcium Level 8.5 MG/DL Magnesium Level 2.2 MG/DL Total Creatine Kinase 442 U/L 459 U/L Creatine Kinase MB 2.5 NG/ML 2.7 NG/ML Creatine Kinase MB % 0.6 % 0.6 % Troponin I 0.06 NG/ML 0.06 NG/ML Urine Color YELLOW Urine Turbidity CLEAR Urine pH 6.0 Urine Specific [place] 1.012 Urine Protein 100 mg/dL Urine Glucose (UA) 150 mg/dL Urine Ketones NEG mg/dL Urine Occult Blood NEG Urine Nitrite NEG Urine Bilirubin NEG Urine Urobilinogen LESS THAN 2.0 MG/DL Urine Leukocyte Esterase NEG Urine RBC 2 /hpf Urine WBC 1 /hpf Urine Squamous Epithelial <1 /hpf Cells Microscopic Urinalysis Comment CULT NOT INDICATED MDM Medical Record Reviewed: Yes Supervised Visit with HELGA: No Interpretation(s) Last Impressions Chest X-Ray 08/09/16 1704 Signed Impressions: Service Date/Time: Tuesday, August 09, 2016 17:41 - CONCLUSION: No acute disease. Niko Castillo Jr., MD Differential Diagnosis Acute coronary syndrome, versus pneumonia, versus acid reflux, versus musculoskeletal strain, versus pyelonephritis, versus kidney stone, versus exacerbation of chronic pain Narrative Course During the course of the patients emergency department visit, the patients history, examination, and differential diagnosis were reviewed with the patient. The patient had IV access obtained and blood work sent for analysis. The patient was placed on a probate lawyer with oximetry and blood pressure monitoring. An EKG was done on arrival. The patient's EKG shows a sinus rhythm heart rate of 73, QRS duration 99 ms, QTC 425 ms, no acute ST segment elevation is noted. No acute ST segment changes are noted. The patient was initially evaluated by Rebecca, the nurse practitioner, as there was a prolonged wait to get back into the emergency department. She started the initial workup. The patient is a 61-year-old male who presents with a history of chest pain and low back pain that he reports began this morning. He reports the chest pain comes and goes, the low back pain is constant. He reports that the chest pain did at one point radiate up into the right side of his jaw. He denies having any shortness of breath. He reports that the back pain is made worse with lifting his legs or bending over. He denies any trauma or recent fall. The patient did however report that he was recently admitted to the hospital in approximately 10 days ago did have a cardiac catheterization with a stent placed. He reports that he is on Coumadin daily. He denies having any abdominal pain, nausea, vomiting, or diarrhea. He last moved his bowels earlier today. He denies having any blood in his stool or black or tarry stools. He denies having any urinary symptoms, however he reports that the back pain across his low back radiates up along the left side into the left flank and into the left chest. The patient was provided aspirin 81 mg as he reports that he took his usual 81 mg today. The patient was given sublingual nitroglycerin every 5 minutes 3 when necessary chest pain. The patient was given nitroglycerin 1 inch the chest wall. The patient was given morphine 4 mg IV for pain, Zofran 4 mg IV for nausea. The patient specifically requested an injection of Norflex for his back pain. The patient was therefore given Norflex 60 mg IM. The patients laboratory studies were reviewed and remarkable for a white count of 5.3, hemoglobin 12, platelets 177 with 10.2 monocytes, CMP is remarkable for a BUN of 24, creatinine 1.60, glucose 277, CPK 442, MB percent 0.6, troponin I 0.06 this is compared to previously during his hospitalization, last troponin at that time was 0.24. INR is 5.4. The patient's Coumadin will be held. Repeat set of enzymes has been ordered. A CT scan of the abdomen and pelvis has been ordered due to the patient's left CVA tenderness. The patient's initial blood pressure on arrival back to the room was 190 systolic. I anticipate that this will be improved with the nitroglycerin and pain control. Radiology studies were reviewed and remarkable for a chest x-ray that shows no acute abnormality. CT scan of the abdomen and pelvis showed no acute abnormality. The patients results were discussed with the patient, including the plan of care. I explained that further testing and/ or monitoring is indicated based on the patients history, examination, and/ or laboratory findings. Therefore, I recommended admission for additional evaluation. The patient expressed understanding and was agreeable with this plan. The patient was admitted to the hospital in stable condition and sent to a bed under the [facility] of the [facility]. Physician Communication Physician Communication The patient's case is discussed with Dr. Hernandez who did agree to admit the patient for further evaluation and treatment at this time. Diagnosis Primary Impression: Chest pain, rule out acute myocardial infarction Additional Impressions: Low back pain Qualified Code: M54.5 - Acute bilateral low back pain without sciatica History of coronary artery disease Admitting Information Admitting Physician Requests: Observation Condition: Stable Lorena Hutson MD Aug 09, 2016 21:42
[2016-08-09] MEDS ORDERED: NITROGLYCERIN 2% OINT 1 GM PACKET TOPICAL ONE (21:45)
[2016-08-09] MEDS ORDERED: MORPHINE SULFATE 4 MG/ML INJ IV PUSH ONE (21:45)
[2016-08-09] MEDS ORDERED: ASPIRIN 81 MG CHEW TAB CHEW ONE (21:45)
[2016-08-09] MEDS ORDERED: ORPHENADRINE INJ 60 MG/2 ML AMP IM ONE (21:45)
[2016-08-09] MEDS ORDERED: NITROGLYCERIN 0.4 MG SL 25 TABS/BTL SL PRN ×2 (21:45→23:00)
[2016-08-09 21:50] VITALS: BP 165/77; PULSE 82; RESP 18; O2SAT 99
[2016-08-09 22:25] LABS: BLOOD, URINE NEG (NEG); COMMENT (UR) CULT NOT INDICATED; CULTURE IF INDICATED CULT NOT INDICATED; GLUCOSE,URINE 150 mg/dL (NEG); KETONE, URINE NEG (NEG); NITRITE,URINE NEG (NEG); SQUAMOUS EPITHELIAL CELL URINE <1 /hpf (0-5); URINE COLOR YELLOW (YELLW/STRAW)
[2016-08-09 22:28] LABS: CKMB 2.7 NG/ML (0.5-3.6)
--- NOTE | 2016-08-09 22:32 | RADRPT ---
EXAM DATE/TIME: 08/09/2016 22:00 [facility] COMPARISON: CTA ABDOMEN W 3D RECON, May 11, 2013, 11:00. INDICATIONS : Left flank pain and chest pain radiating to back. ORAL CONTRAST: No oral contrast ingested. RADIATION DOSE: 20.18 CTDIvol (mGy) MEDICAL HISTORY : Hypertension. SURGICAL HISTORY : Abdominal aortic aneurysm repair. Cholecystectomy.Left hip li. ENCOUNTER: Initial ACUITY: 1 day PAIN SCALE: 5/10 LOCATION: Left flank TECHNIQUE: Volumetric scanning of the abdomen and pelvis was performed. Using automated exposure control and ad justment of the mA and/or kV according to patient size, radiation dose was kept as low as reasonably achievable to obtain optimal diagnostic quality images. FINDINGS: LOWER LUNGS: The visualized lower lungs are clear. LIVER: Homogeneous density without lesion. There is no dilation of the biliary tree. The gallbladder is nohemi gically absent. SPLEEN: Normal size without lesion. PANCREAS: Within normal limits. KIDNEYS: Normal in size and shape. There is no mass, stone, or hydronephrosis. Small bilateral renal cysts ar e stable. Atherosclerotic calcification is seen involving the right renal pelvis. No collecting syste m stones observed. ADRENAL GLANDS: A 1.9 cm nodule is seen involving the lateral limb of the right adrenal gland. This is stable. Left a drenal gland is unremarkable. VASCULAR: An endograft is seen involving the infrarenal aorta. The [place] aneurysm sac is collapsed around the endograft. BOWEL/MESENTERY: The stomach, small bowel, and colon demonstrate no acute abnormality. There is no free intraperitone al air or fluid. ABDOMINAL WALL: Within normal limits. RETROPERITONEUM: There is no lymphadenopathy. BLADDER: No wall thickening or mass. REPRODUCTIVE: Within normal limits. INGUINAL: There is no lymphadenopathy or hernia. MUSCULOSKELETAL: A left hip prosthesis noted. CONCLUSION: 1. No acute abnormality. 2. Prior cholecystectomy. 3. Endograft repair of a AAA. 4. Bilateral renal cysts. 5. Stable right adrenal gland adenoma. Niko Castillo Jr., MD on August 09, 2016 at 22:25 Board Certified Radiologist. This report was verified electronically.
[2016-08-09] MEDS ORDERED: NALOXONE HCL 0.4 MG/ML AMP IV PRN (23:00)
[2016-08-09] MEDS ORDERED: SODIUM CHLORIDE 0.9% FLUSH 5 ML FLUSH FLUSH PRN (23:00)
[2016-08-09] MEDS ORDERED: PILL SPLITTER OTHER PRN (23:15)
[2016-08-09] MEDS ORDERED: GLUCAGON 1 MG/ML VIAL OTHER PRN (23:15)
[2016-08-09] MEDS ORDERED: ZOLPIDEM TARTRATE 10 MG TAB PO PRN (23:15)
[2016-08-09] MEDS ORDERED: DEXTROSE 50% IN WATER 50 ML VIAL(D50) IV PUSH PRN (23:15)
[2016-08-10] VITALS (8 sets, daily range): BP systolic 133–179; BP diastolic 63–95; PULSE 64–80; RESP 18–20; TEMP 97.6–98.3; O2SAT 94–99
[2016-08-10] MEDS ORDERED: MORPHINE SULFATE 4 MG/ML INJ IV PUSH ONE ×2 (00:15→03:45)
[2016-08-10] MEDS: hydrALAZINE HCL 50 MG TAB PO SCH ×4 (00:37→16:33)
[2016-08-10 01:53] LABS: CKMB 2.5 NG/ML (0.5-3.6)
[2016-08-10] MEDS: ISOSORBIDE MONONITRATE 60 MG TAB PO SCH (07:00)
[2016-08-10] MEDS: INSULIN ASPART SUPPLEMENTAL SCALE SQ SCH ×4 (08:00→21:14)
--- NOTE | 2016-08-10 08:45 | EKG ---
Date Performed: 08/10/2016 Time Performed: 00:41:44 PTAGE: 61 years EKG: Sinus rhythm NORMAL ECG NO SIGNIFICANT CHANGE FROM PRIOR ELECTROCARDIOGRAM. PREVIOUS TRACING : 08/09/2016 17.19 DOCTOR: Maximo Townsend Interpretating Date/Time 08/10/2016 08:44:04
[2016-08-10] MEDS: HYDROCHLOROTHIAZIDE 50 MG TAB PO SCH (09:00)
[2016-08-10] MEDS: ATORVASTATIN 40 MG TAB PO SCH (09:06)
[2016-08-10] MEDS: POTASSIUM CHLORIDE 20 MEQ CONTROLLED RELEASE TAB PO SCH (09:06)
[2016-08-10] MEDS: ORPHENADRINE CITRATE 100 MG SUSTAINED RELEASE TAB PO SCH ×2 (09:06→21:14)
[2016-08-10] MEDS: CLOPIDOGREL 75 MG TAB PO SCH (09:06)
[2016-08-10] MEDS: CARVEDILOL 12.5 MG TAB PO SCH ×2 (09:06→21:06)
[2016-08-10] MEDS: GABAPENTIN 400 MG CAP PO SCH ×3 (09:06→16:34)
[2016-08-10] MEDS: LOSARTAN 50 MG TAB PO SCH (09:07)
[2016-08-10] MEDS: METOCLOPRAMIDE HCL 10 MG TAB PO SCH ×3 (09:07→16:34)
[2016-08-10] MEDS: INSULIN DETEMIR 100 UNITS/ML VIAL SQ SCH ×2 (09:07→21:06)
[2016-08-10] MEDS: ASPIRIN 81 MG CHEW TAB PO SCH (09:07)
[2016-08-10] MEDS: SODIUM CHLORIDE 0.9% FLUSH 5 ML FLUSH FLUSH SCH ×2 (09:07→21:05)
[2016-08-10 12:36] LABS: CKMB 2.3 NG/ML (0.5-3.6)
[2016-08-10] MEDS ORDERED: MORPHINE SULFATE 4 MG/ML INJ IV PUSH PRN (15:45)
[2016-08-10] MEDS ORDERED: ONDANSETRON HCL 4 MG/2 ML VIAL IV PRN (15:45)
--- NOTE | 2016-08-10 15:45 | HHI.HP ---
HPI Service [facility] Primary Care Physician Jhonathan Harris MD Admission Diagnosis CP RO NM, ho CAD, intermediate troponin Diagnoses: Chief Complaint: Chest pain Travel History International Travel<30 Days: No Contact w/Intl Traveler <30 Da: No Traveled to Known Affected Are: No History of Present Illness 61 yo male with pmh of CAD with recent stent placement last week by Dr sanchez [place] [facility] [place]o chest pain which started 2 days ago, intermittent , left sided, described as pressure and radiating into his neck and left arm. Patient told the ED physician it started hearting bad around 2:00 pm on 08/09. Patient denies sob, palpitations, dizziness, nausea, vomiting or any other symptoms with it. states lying down makes it worst but denies any relieving symptoms. Denies any recent illness, cough or fevers. Review of Systems Other As per HPI, other systems reviewed by me and negative. Past Family Social History Past Medical History CAD sp stents on ASA and Plavix HTN HLD AAA repair Sickle Cell trait LLE DVT Past Surgical History Cholecystectomy Left hip replacement Fem - Pop left leg Stent placement x 5 - 2 in 2009, 2 in 2010 and 1 in 2017. Allergies: Coded Allergies: DAWIT Inhibitors (Verified Allergy, Severe, ANGIOEDEMA, 07/24/16) Vasotec (Verified Allergy, Severe, 07/24/16) ANGIOEDEMA Clonidine (Verified Allergy, Mild, DRY MOUTH, 07/24/16) Dilaudid (Verified Adverse Reaction, Intermediate, ITCHING, 07/24/16) Active Ordered Medications Current Medications Medications (Trade) Dose Ordered Sig/Conchita Route Start Time Stop Time Status Last Admin (NS Flush) 2 ml UNSCH PRN FLUSH 08/09/16 23:00 (NS Flush) 2 ml BID FLUSH 08/10/16 09:00 08/10/16 09:07 (Narcan Inj) 0.4 mg UNSCH PRN IV 08/09/16 23:00 (Nitrostat Sl) 0.4 mg Q5M PRN SL 08/09/16 23:00 (Norvasc) 10 mg DAILY PO 08/10/16 09:00 08/10/16 09:06 (Lipitor) 80 mg DAILY PO 08/10/16 09:00 08/10/16 09:06 (Coreg) 25 mg BID PO 08/10/16 09:00 08/10/16 09:06 (Plavix) 75 mg DAILY PO 08/10/16 09:00 08/10/16 09:06 (Neurontin) 800 mg TID PO 08/10/16 09:00 08/10/16 12:48 (Apresoline) 75 mg Q6HR PO 08/10/16 00:00 08/10/16 12:48 (Hydrodiuril) 50 mg DAILY PO 08/10/16 09:00 08/10/16 09:00 ([place] 10-325 Mg) 1 tab Q4H PRN PO 08/09/16 23:15 (Levemir Inj) 60 units BID SQ 08/10/16 09:00 08/10/16 09:07 (Imdur) 60 mg DAILY@07 PO 08/10/16 07:00 (Cozaar) 100 mg DAILY PO 08/10/16 09:00 08/10/16 09:07 (Reglan) 5 mg TIDAC PO 08/10/16 08:00 08/10/16 12:48 (Norflex Cr) 100 mg BID PO 08/10/16 09:00 08/10/16 09:06 (KCl) 20 meq DAILY PO 08/10/16 09:00 08/10/16 09:06 (Ambien) 10 mg HS PRN PO 08/09/16 23:15 (Aspirin Chew) 81 mg DAILY PO 08/10/16 09:00 08/10/16 09:07 (Pill Splitter) 1 ea UNSCH PRN OTHER 08/09/16 23:15 (D50w (Vial) Inj) 25 ml UNSCH PRN IV PUSH 08/09/16 23:15 (Glucagon Inj) 1 mg UNSCH PRN OTHER 08/09/16 23:15 (Zofran Inj) 4 mg Q6H PRN IV 08/10/16 15:45 UNV (Morphine Inj) 2 mg Q3H PRN IV PUSH 08/10/16 15:45 UNV Family History Denies family h/o early CAD, DM, HTN, Sickle cell Social History Patient is a former smoker - quit 15 years ago Patient denies Etoh intake Denies illegal drug use Physical Exam Vital Signs Vital Signs Date Time Temp Pulse Resp B/P Pulse Ox O2 Delivery O2 Flow Rate FiO2 08/10/16 15:31 98.3 71 20 167/87 94 08/10/16 12:04 98.0 67 20 133/63 95 08/10/16 09:00 70 08/10/16 08:37 98.1 73 20 179/95 94 08/10/16 05:22 98.0 68 18 147/78 99 08/10/16 04:02 80 18 150/84 99 Room Air 08/10/16 02:23 16 08/09/16 23:33 18 08/09/16 21:50 82 18 165/77 99 Room Air 08/09/16 20:33 70 08/09/16 20:33 66 18 193/90 98 Room Air 08/09/16 16:32 98.2 79 12 199/92 94 Room Air Physical Exam GENERAL: This is a well-nourished, well-developed patient, in no apparent distress. SKIN: No rashes, ecchymoses or lesions. Cool and dry. HEAD: Atraumatic. Normocephalic. No temporal or scalp tenderness. EYES: Pupils equal round and reactive. Extraocular motions intact. No scleral icterus. No injection or drainage. ENT: Nose without bleeding, purulent drainage or septal hematoma. Throat without erythema, tonsillar hypertrophy or exudate. Uvula midline. Airway patent. NECK: Trachea midline. No JVD or lymphadenopathy. Supple, nontender, no meningeal signs. CARDIOVASCULAR: Regular rate and rhythm without murmurs, gallops, or rubs. RESPIRATORY: Clear to auscultation. Breath sounds equal bilaterally. No wheezes , rales, or rhonchi. GASTROINTESTINAL: Abdomen soft, non-tender, nondistended. No hepato-splenomegaly , or palpable masses. No guarding. MUSCULOSKELETAL: Extremities without clubbing, cyanosis, or edema. No joint tenderness, effusion, or edema noted. No calf tenderness. Negative Homans sign bilaterally. NEUROLOGICAL: Awake and alert. Cranial nerves II through XII intact. Motor and sensory grossly within normal limits. Five out of 5 muscle strength in all muscle groups. Normal speech. Laboratory Laboratory Tests Test 108/09/16 08/09/16 08/10/16 17:20 21:27 21:39 00:51 White Blood Count 5.3 Red Blood Count 4.70 Hemoglobin 12.0 Hematocrit 36.4 Mean Corpuscular Volume 77.4 Mean Corpuscular Hemoglobin 25.6 Mean Corpuscular Hemoglobin 33.1 Concent Red Cell Distribution Width 17.5 Platelet Count 177 Mean Platelet Volume 8.2 Neutrophils (%) (Auto) 66.1 Lymphocytes (%) (Auto) 17.6 Monocytes (%) (Auto) 10.2 Eosinophils (%) (Auto) 4.5 Basophils (%) (Auto) 1.6 Neutrophils # (Auto) 3.5 Lymphocytes # (Auto) 0.9 Monocytes # (Auto) 0.5 Eosinophils # (Auto) 0.2 Basophils # (Auto) 0.1 CBC Comment DIFF FINAL Differential Comment Prothrombin Time 64.1 Prothromb Time International 5.4 Ratio Activated Partial 43.3 Thromboplast Time Sodium Level 142 Potassium Level 4.0 Chloride Level 106 Carbon Dioxide Level 28.8 Anion Gap 7 Blood Urea Nitrogen 24 Creatinine 1.60 Estimat Glomerular Filtration 54 Rate Random Glucose 277 Calcium Level 8.5 Magnesium Level 2.2 Total Creatine Kinase 442 459 471 Creatine Kinase MB 2.5 2.7 2.5 Creatine Kinase MB % 0.6 0.6 0.5 Troponin I 0.06 0.06 0.06 Urine Color YELLOW Urine Turbidity CLEAR Urine pH 6.0 Urine Specific [place] 1.012 Urine Protein 100 Urine Glucose (UA) 150 Urine Ketones NEG Urine Occult Blood NEG Urine Nitrite NEG Urine Bilirubin NEG Urine Urobilinogen LESS THAN 2.0 Urine Leukocyte Esterase NEG Urine RBC 2 Urine WBC 1 Urine Squamous Epithelial <1 Cells Microscopic Urinalysis Comment CULT NOT INDICATED Test 08/10/16 11:33 Total Creatine Kinase 400 Creatine Kinase MB 2.3 Creatine Kinase MB % 0.6 Troponin I 0.06 Result Diagram: 08/09/16 1720 08/09/16 172 Imaging Last Impressions Abdomen/Pelvis CT 08/09/162130 Signed Impressions: Service Date/Time: Tuesday, August 09, 2016 22:00 - CONCLUSION: 1. No acute abnormality. 2. Prior cholecystectomy. 3. Endograft repair of a AAA. 4. Bilateral renal cysts. 5. Stable right adrenal gland adenoma. Niko Castillo Jr., MD Chest X-Ray 08/09/16 1753 Signed Impressions: Service Date/Time: Tuesday, August 09, 2016 17:41 - CONCLUSION: No acute disease. Niko Castillo Jr., MD Reviewed by me. Assessment and Plan Problem List: (1) Chest pain, rule out acute myocardial infarction ICD Code: R07.9 Status: Acute Plan: Place on outpatient observation on telemetry troponins 0.06 x4 EKG showed sinus rythm at a ventricular rate of [address] - T changes. patient c/o chest pain on and off Morphine as needed for chest pain continue asa and plavix cardiology consult - Dr Sanchez serial EKG's (2) CAD (coronary artery disease) ICD Code: I25.10 Status: Acute Plan: Continue ASA, Plavix, Losartan, Isosorbide mononitrate, statin Patient states he has been compliant w treatment (3) HTN (hypertension) ICD Code: I10 Status: Acute Plan: BP seems somewhat unstable. continue home antihypertensive medications which include amlodipine, carvedilol, losartan, HCTZ and hydralazine prn. I will add clonidine as needed for sbp > 160 (4) Elevated troponin ICD Code: R79.89 Status: Acute Plan: Patient has had chronically elevated cardiac enzymes and troponins have remained stable during this hospital stay. Trend cardiac enzymes (5) Hyperlipidemia ICD Code: E78.5 Status: Chronic Plan: Continue statin. Check lipid profile. (6) Obesity ICD Code: E66.9 Status: Chronic Plan: BMI 39. Advised on importance of healthy weight and weight loss. (7) DM (diabetes mellitus) ICD Code: E11.9 Status: Chronic Plan: Blood sugars uncontrolled. continue home Insulin Levemir and place on medium SSI with insulin Novolog. (8) History of DVT (deep vein thrombosis) ICD Code: Z86.718 Status: Chronic Plan: Patient on coumadin - INR 5.4 - hold coumadin and monitor PT/INR daily. (9) Supratherapeutic INR ICD Code: R79.1 Status: Acute Plan: Hold Coumadin for now (10) Microcytic anemia ICD Code: D50.9 Status: Acute Plan: Patient on chronic anticoagulation and supratherapeutic INR now. Check stool guaiac, iron studies. Could be secondary to sickle cell trait. (11) Right arm pain ICD Code: M79.601 Status: Acute Plan: Patient c/o pain in right arm ever since the cardiac cath - will check venous doppler usof RUE r/o DVT. Assessment and Plan GI prophylaxis: PPI DVT prophylaxis: SCD's, no chemoprophylaxis since patient w supratherapeutic INR Code Status Full code Discussed Condition With Patient, RN Problem Qualifiers (1) HTN (hypertension): Qualified Code: I10 - Essential hypertension (2) Hyperlipidemia: Qualified Code: E78.00 - Pure hypercholesterolemia (3) DM (diabetes mellitus): Qualified Code: E11.65 - Type 2 diabetes mellitus with hyperglycemia, with long -term current use of insulin Eliot Chi MD Aug 10, 2016 15:45
[2016-08-10] MEDS ORDERED: cloNIDine HCL 0.1 MG TAB PO PRN (16:30)
[2016-08-10] MEDS: DOXAZOSIN MESYLATE 2 MG TAB PO SCH (18:37)
--- NOTE | 2016-08-10 20:50 | RADRPT ---
EXAM DATE/TIME: 08/10/2016 19:20 [facility] COMPARISON: No previous studies available for comparison. INDICATIONS : Right arm pain. MEDICAL HISTORY : Hypercholesterolemia. Deep venous thrombosis. Hypertension. Cerebrovascular accident. Coronary artery disease. Anticoagulant therapy. Pancreatitis. Diabetes. Sickle cell trait. Anemia. SURGICAL HISTORY : Abdominal aortic aneurysm repair. Coronary artery stent. Cholecystectomy. Left hip replacement. ENCOUNTER: Initial ACUITY: 1 week PAIN SCORE: 5/10 LOCATION: Right arm. FINDINGS: There is spontaneous flow documented in the brachial, basilic, cephalic, axillary, and subclavian vei ns. The vessels are compressible and augmentation response is documented. No filling defects are se en. The flow is phasic with respiration. Direction of flow in the jugular vein is caudal. CONCLUSION: Negative exam with no evidence of deep venous thrombosis. Eugene Nelson MD on August 10, 2016 at 20:49 Board Certified Radiologist. This report was verified electronically.
[2016-08-10] MEDS: MORPHINE SULFATE 4 MG/ML INJ IV PUSH PRN (21:12)
[2016-08-10] MEDS: ACETAMINOPHEN/HYDROcodone 325 MG/10 MG TAB PO PRN (23:40)
[2016-08-11] VITALS: BP 186/88; PULSE 60; RESP 20; TEMP 97.3; O2SAT 96
[2016-08-11] MEDS: hydrALAZINE HCL 50 MG TAB PO SCH ×4 (01:07→17:47)
[2016-08-11 01:33] VITALS: BP 176/95
[2016-08-11] MEDS: MORPHINE SULFATE 4 MG/ML INJ IV PUSH PRN ×5 (02:03→18:41)
[2016-08-11 04:00] VITALS: BP 151/77; PULSE 69; RESP 20; TEMP 97.8; O2SAT 93
[2016-08-11 04:54] LABS: INTERNATIONAL NORMALIZED RATIO 4.2 RATIO; PROTHROMBIN TIME - PATIENT 48.9 SEC (9.8-11.6)
[2016-08-11 05:21] LABS: HDL CHOLESTEROL 25.3 MG/DL (40.0-60.0)
[2016-08-11] MEDS: ISOSORBIDE MONONITRATE 60 MG TAB PO SCH (05:54)
[2016-08-11] MEDS: INSULIN ASPART SUPPLEMENTAL SCALE SQ SCH ×3 (07:57→17:46)
[2016-08-11 08:00] VITALS: BP 155/73; PULSE 61; RESP 20; TEMP 96.7; O2SAT 94
[2016-08-11] MEDS: CARVEDILOL 12.5 MG TAB PO SCH (08:44)
[2016-08-11] MEDS: ATORVASTATIN 40 MG TAB PO SCH (08:44)
[2016-08-11] MEDS: HYDROCHLOROTHIAZIDE 50 MG TAB PO SCH (08:45)
[2016-08-11] MEDS: LOSARTAN 50 MG TAB PO SCH (08:45)
[2016-08-11] MEDS: GABAPENTIN 400 MG CAP PO SCH ×3 (08:45→17:47)
[2016-08-11] MEDS: DOXAZOSIN MESYLATE 2 MG TAB PO SCH (08:45)
[2016-08-11] MEDS: CLOPIDOGREL 75 MG TAB PO SCH (08:45)
[2016-08-11] MEDS: ORPHENADRINE CITRATE 100 MG SUSTAINED RELEASE TAB PO SCH (08:45)
[2016-08-11] MEDS: POTASSIUM CHLORIDE 20 MEQ CONTROLLED RELEASE TAB PO SCH (08:45)
[2016-08-11] MEDS: INSULIN DETEMIR 100 UNITS/ML VIAL SQ SCH (08:45)
[2016-08-11] MEDS: SODIUM CHLORIDE 0.9% FLUSH 5 ML FLUSH FLUSH SCH (08:46)
[2016-08-11] MEDS: METOCLOPRAMIDE HCL 10 MG TAB PO SCH ×3 (08:46→14:44)
[2016-08-11] MEDS: ASPIRIN 81 MG CHEW TAB PO SCH (08:46)
--- NOTE | 2016-08-11 10:35 | MB ---
cc: BELLE FLORES DATE OF CONSULTATION 08/11/2016 DATE OF 1955 REASON FOR CONSULTATION Chest pain HISTORY OF PRESENT ILLNESS 61-year-old male with a past medical history significant for coronary artery disease status post recent stents to the right coronary artery, hypertension, hyperlipidemia, sleep apnea, noncompliance with medications who presented to the hospital with complaints of atypical chest pains. She reports that the pains are in the right arm and shoulder sometimes radiating to the back. She denies shortness of breath, palpitations, dizziness, nausea, vomiting or any other symptoms with it. He denies noncompliant with medications. REVIEW OF SYSTEMS Negative except for what is mentioned in the HPI. PAST MEDICAL HISTORY 1. CAD status post stent 2. Hypertension 3. Hyperlipidemia 4. Triple A repair 5. Sickle cell trait 6. Left lower extremity DVT PAST SURGICAL HISTORY 1. Cholecystectomy 2. Left hip replacement 3. Fem-pop bypass 4. PCI's in 2000 and 2016 ALLERGIES DAWIT INHIBITORS, CLONIDINE, DILAUDID, VASOTEC. FAMILY HISTORY Noncontributory SOCIAL HISTORY Her is a former smoker. He denies alcohol use or illicit drug use. CARDIAC MEDICATIONS AT HOME 1. Norvasc 10 mg p.o. daily 2. Lipitor 40 mg p.o. daily 3. Coreg 25 mg p.o. b.i.d. 4. Plavix 75 mg p.o. daily 5. Hydralazine 50 mg p.o. q6h 6. Hydrochlorothiazide 50 mg p.o. daily 7. Imdur 60 mg p.o. daily 8. Cozaar 50 mg p.o. daily 9. Nitroglycerin 0.4 mg p.r.n. for chest pain 10. Warfarin 10 mg p.o. daily 11. Aspirin 81 mg p.o. daily PHYSICAL EXAMINATION VITAL SIGNS: Temperature 97.6, respiratory rate 20, pulse 60, blood pressure on arrival to the emergency department, his blood pressure was systolic in the 200s, this morning is 155/73, O2 sat 94% on room air. GENERAL: He is awake, alert, oriented x3 in no acute distress. NECK: No JVD, no carotid bruits. HEART: Regular rate and rhythm. No murmurs, rubs or gallops. LUNGS: Clear to auscultation bilaterally. No wheezes, rhonchi or rales. ABDOMEN: Obese. Positive bowel sounds, nontender, soft, nontender, nondistended. EXTREMITIES: No cyanosis or edema. Pulses throughout. LABORATORY DATA CBC hemoglobin 12, hematocrit 36, platelet count of 177, INR 4.2. Chemistries, sodium 142, potassium 4.0, BUN 24, creatinine 1.6, troponin 0.06, 0.06 and 0.06. EKG shows a normal sinus rhythm. According to previous records, he has a normal EF with an estimated ejection fraction of 60% on the last myocardial perfusion test done here. ASSESSMENT/PLAN 61-year-old male with known CAD s/p recent PCI, uncontrolled hypertension, hyperlipidemia, obesity, noncompliant with medications who presented to the hospital with atypical chest pain in the setting of uncontrolled hypertension. He remains hemodynamically stable and chest pain free. He has some component of sleep apnea, he reports feeling better with the C-PAP, however, he has not been getting the C-PAP at home. Troponins have been negative. EKG unchanged. I do not think at this time, given his atypical symptoms, we need to re-cath him. I would rather prefer to treat him medically, optimized his blood pressure medications and see if we can arrange for him to a C-PAP at home. His blood pressure seems better controlled today most likely because we have been able to give him the medication while he is here. RECOMMENDATIONS 1. Continue aggressive medical management of CAD. 2. Control hypertension 3. Evaluate for C-PAP machine at home. Thank you for the opportunity to take part in the care of this patient. The patient should follow up with his primary medical technicians Dr. Hutson when discharged. MD STEPHEN Brewster/KVNG /9:29 AM /10:18 AM SUSHILA
[2016-08-11 11:57] LABS: HEMOGLOBIN A1b 0.7 %; HEMOGLOBIN Ao 49.8 %; HEMOGLOBIN F 1.3 %; HEMOGLOBIN LA1C 2.6 %; HEMOGLOBIN P3 3.6 %
[2016-08-11 12:00] VITALS: BP 108/60; PULSE 66; RESP 20; TEMP 95.9; O2SAT 96
[2016-08-11] MEDS: ACETAMINOPHEN/HYDROcodone 325 MG/10 MG TAB PO PRN ×2 (12:39→17:47)
[2016-08-11 16:00] VITALS: BP 130/63; PULSE 60; RESP 20; TEMP 96.5; O2SAT 95
[2016-08-11] MEDS ORDERED: HYDR-3516 PO (19:24)
[2016-08-11] MEDS ORDERED: CARD2TAB PO (19:24)
--- NOTE | 2016-08-11 19:25 | HHI.DCPOC ---
Discharge Care Plan Diagnosis: (1) Chest pain (2) Anticoagulant overdosage (3) Atypical chest pain (4) History of DVT (deep vein thrombosis) (5) Anticoagulation excessive (6) Hx of coronary artery disease (7) GERD (gastroesophageal reflux disease) (8) Hyperlipidemia (9) Obesity (10) DM (diabetes mellitus) (11) Chronic back pain (12) Sickle cell trait (13) Peripheral neuropathy (14) H/O abdominal aortic aneurysm repair (15) Stented coronary artery (16) H/O heart artery stent Goals to Promote Your Health * To prevent worsening of your condition and complications * To maintain your health at the optimal level Directions to Meet Your Goals Take your medications as prescribed Follow your dietary instruction Follow activity as directed Keep your appointments as scheduled Take your immunizations and boosters as scheduled If your symptoms worsen call your PCP, if no PCP go to Urgent Care Center or Emergency Room Smoking is Dangerous to Your Health. Avoid second hand smoke Call the 24-hour hour crisis hotline for domestic abuse at Eliot Chi MD Aug 11, 2016 19:25
--- NOTE | 2016-08-11 19:39 | HHI.DS ---
Discharge Summary Admission Date Aug 09, 2016 at 22:21 Discharge Date: Aug 11, 2016 Admitting Diagnosis CP RO SD, ho CAD, intermediate troponin (1) Chest pain, rule out acute myocardial infarction ICD Code: R07.9 Diagnosis: Principal (2) CAD (coronary artery disease) ICD Code: I25.10 Diagnosis: Principal (3) HTN (hypertension) ICD Code: I10 Diagnosis: Principal (4) Elevated troponin ICD Code: R79.89 Diagnosis: Principal (5) Hyperlipidemia ICD Code: E78.5 Diagnosis: Principal (6) Obesity ICD Code: E66.9 Diagnosis: Principal (7) DM (diabetes mellitus) ICD Code: E11.9 Diagnosis: Principal (8) History of DVT (deep vein thrombosis) ICD Code: Z86.718 Diagnosis: Principal (9) Supratherapeutic INR ICD Code: R79.1 Diagnosis: Principal (10) Microcytic anemia ICD Code: D50.9 Diagnosis: Principal (11) Right arm pain ICD Code: M79.601 Diagnosis: Principal Procedures none Brief History - From Admission 61 yo male with pmh of CAD with recent stent placement last week by Dr sanchez [place] [facility] [place] chest pain which started 2 days ago, intermittent , left sided, described as pressure and radiating into his neck and left arm. Patient told the ED physician it started hearting bad around 2:00 pm on 08/09. Patient denies sob, palpitations, dizziness, nausea, vomiting or any other symptoms with it. states lying down makes it worst but denies any relieving symptoms. Denies any recent illness, cough or fevers. CBC/BMP: 08/09/16 1720 08/09/16 1720 Significant Findings Laboratory Tests Test 08/09/16 08/09/16 08/09/16 08/10/16 17:20 21:27 21:39 00:51 Hemoglobin 12.0 GM/DL (13.0-17.0) Hematocrit 36.4 % (39.0-51.0) Mean Corpuscular Volume 77.4 FL (80.0-100.0) Mean Corpuscular Hemoglobin 25.6 PG (27.0-34.0) Red Cell Distribution Width 17.5 % (11.6-17.2) Monocytes (%) (Auto) 10.2 % (0.0-8.0) Eosinophils (%) (Auto) 4.5 % (0.0-4.0) Lymphocytes # (Auto) 0.9 TH/MM3 (1.0-4.8) Prothrombin Time 64.1 SEC (9.8-11.6) Activated Partial 43.3 SEC Thromboplast Time (24.3-30.1) Blood Urea Nitrogen 24 MG/DL (7-18) Creatinine 1.60 MG/DL (0.60-1.30) Estimat Glomerular Filtration 54 ML/MIN (>89) Rate Random Glucose 277 MG/DL (74-106) Total Creatine Kinase 442 U/L 459 U/L 471 U/L (39-308) (39-308) (39-308) Troponin I 0.06 NG/ML 0.06 NG/ML 0.06 NG/ML (0.02-0.05) (0.02-0.05) (0.02-0.05) Urine Protein 100 mg/dL (NEG-TRACE) Urine Glucose (UA) 150 mg/dL (NEG) Test 08/10/16 08/11/16 11:33 04:20 Total Creatine Kinase 400 U/L (39-308) Troponin I 0.06 NG/ML (0.02-0.05) Prothrombin Time 48.9 SEC (9.8-11.6) Hemoglobin A1c 9.4 % (4.3-6.0) Triglycerides Level 479 MG/DL (42-150) HDL Cholesterol 25.3 MG/DL (40.0-60.0) Imaging Last Impressions Upper Extremity Ultrasound 08/10/16 0000 Signed Impressions: Service Date/Time: Wednesday, August 10, 2016 19:20 - CONCLUSION: Negative exam with no evidence of deep venous thrombosis. Eugene Nelson MD Abdomen/Pelvis CT 08/09/[id number] Signed Impressions: Service Date/Time: Tuesday, August 09, 2016 22:00 - CONCLUSION: 1. No acute abnormality. 2. Prior cholecystectomy. 3. Endograft repair of a AAA. 4. Bilateral renal cysts. 5. Stable right adrenal gland adenoma. Niko Castillo Jr., MD Chest X-Ray 08/09/16 [id number] Signed Impressions: Service Date/Time: Tuesday, August 09, 2016 17:41 - CONCLUSION: No acute disease. Niko Castillo Jr., MD Pt update on day of discharge As per RN the patient has been asking for IV morphine every 3 hours, seting his alarm to every 3 hours. As per RN the patient does not look in pain. Indeed 1 time he requested pain medication when asked where he had pain he said in his back and therefore was offered oral pain medications since the IV morphine was written only for chest pain. After that the patient only complained of chest pain. I suspect the patient has drug-seeking behavior and is complaining of chest pain to obtain IV morphine. The patient has been seen by cardiology, troponins remain negative. The patient has been cleared to be discharged home. The patient states that he has been working with the navigation officer Dr. Candida Walter to obtain a CPAP machine. I will discharge home on his previous medications. Patient complains of some back pain for which I will discharge on oral Toney. I will give 20 tablets enough for him to last him over the weekend and he states that he will follow up with his pain management doctor next week. Patient's INR still elevated at 4.2. Instructed to the patient not to take his Coumadin for the next 2 days and to repeat his INR for which I will give a prescription which will be cc to his primary physician Dr. Harris. The patient was told to call his primary physician to get orders on what to do regarding his Coumadin. Hospital Course (1) Chest pain, rule out acute myocardial infarction Placed on outpatient observation on telemetry troponins 0.06 x4 EKG showed sinus rythm at a ventricular rate of [address] - T changes. patient c/o chest pain on and off Morphine as needed for chest pain continue asa and plavix cardiology consulted - Dr Holland recommended medical management and optimization of BP and cpap machine at home. Patient has been working with navigation officer to obtain C pap (2) CAD (coronary artery disease) Continue ASA, Plavix, Losartan, Isosorbide mononitrate, statin Patient states he has been compliant w treatment (3) HTN (hypertension) Uncontrolled initially. continue home antihypertensive medications which include amlodipine, carvedilol, losartan, HCTZ and hydralazine prn. I will add clonidine as needed for sbp > 160 Bp controlled prior to DC after addition of Cardura 2 mg po daily. (4) Elevated troponin Patient has had chronically elevated cardiac enzymes and troponins have remained stable during this hospital stay. Trend cardiac enzymes (5) Hyperlipidemia Plan: Continue statin. Check lipid profile ---> Elevated triglycerides at 479, total cholesterol 120, LDL unable to be measured to elevated triglycerides. (6) Obesity Plan: BMI 39. Advised on importance of healthy weight and weight loss. (7) DM (diabetes mellitus) Plan: Blood sugars uncontrolled. continue home Insulin Levemir and place on medium SSI with insulin Novolog. (8) History of DVT (deep vein thrombosis) Patient on coumadin - INR 5.4 - hold coumadin and monitor PT/INR daily. (9) Supratherapeutic INR INR trending down 5.4 - 4.2 on day of discharge. Coumadin held. Patient discharged and instructed to continue to hold Coumadin. Patient was given a PT/ INR order for 2 to 3 days which will be cc'd to the patient's primary for further management. (10) Microcytic anemia Patient on chronic anticoagulation and supratherapeutic INR now. Check stool guaiac, iron studies. Could be secondary to sickle cell trait. (11) Right arm pain Patient c/o pain in right arm ever since the cardiac cath - will check venous doppler usof RUE r/o DVT ---> negative. DVT ruled out. GI prophylaxis: PPI DVT prophylaxis: SCD's, no chemoprophylaxis since patient w supratherapeutic INR Pt Condition on Discharge: Stable Discharge Disposition: Discharge Home Discharge Time: > 30 minutes Discharge Instructions DIET: Follow Instructions for: Heart Healthy Diet, Diabetic Diet Activities you can perform: Regular-No Restrictions Activities to Avoid: Strenuous Activity Follow up Referrals: Cardiology - 2-3 Days with Logan Hutson MD PCP Follow-up - 1 Week with Jhonathan Harris MD New Orders: PT/INR - 2-3 Days New Medications: Hydrocodone-Acetaminophen (Hydrocodone-Acetaminophen) 5-325 mg Tab 1 TAB PO Q4H PRN PAIN #20 Ref 0 TAB Doxazosin (Cardura) 2 Mg Tab 2 MG PO DAILY Blood Pressure Management #30 TAB Continued Medications: Amlodipine (Norvasc) 10 Mg Tab 10 MG PO DAILY HTN #30 TAB Atorvastatin (Lipitor) 40 Mg Tab 80 MG PO DAILY dyslipidemia #30 TAB Carvedilol (Coreg) 25 Mg Tab 25 MG PO BID #60 Ref 0 TAB Clopidogrel (Plavix) 75 Mg Tab 75 MG PO DAILY CAD #30 TAB Gabapentin (Gabapentin) 800 Mg Tab 800 MG PO TID #90 Ref 0 TAB Hydralazine (Hydralazine) 50 Mg Tab 75 MG PO Q6HR htn #120 TAB Hydrochlorothiazide (Hydrochlorothiazide) 50 Mg Tab 50 MG PO DAILY #60 Ref 0 TAB Hydrocodone-Acetaminophen (Lortab) 10-325 Mg Tab 1 TAB PO Q4H PRN PAIN Ref 0 TAB Insulin Glargine Inj (Lantus Inj) 1,000 Unit/10 Ml Vial 60 UNITS SQ BID Blood Sugar Management Ref 0 VIAL Insulin Human Regular Inj (Novolin R Inj) 1,000 Unit/10 Ml Vial 0 SQ TIDACHS Sliding Scale As Directed. Blood Sugar Management #10 Ref 0 ML Isosorbide Mononitrate ER (Isosorbide Mononitrate ER) 60 Mg Tab 60 MG PO DAILY@07 heart #30 TAB Losartan (Cozaar) 50 Mg Tab 100 MG PO DAILY HTN #30 TAB Metoclopramide (Metoclopramide) 5 Mg Tab 5 MG PO TIDAC Ref 0 TAB Nitroglycerin SL (Nitroglycerin SL) 0.4 Mg Subl 0.4 MG SL DIRECTED ONE TABLET UNDER THE TONGUE NEEDED FOR CHEST PAIN, MAY REPEAT EVERY FIVE MINUTES FOR A TOTAL OF 3 DOSES OR CALL 911 IF NO RELIEF PRN CHEST PAIN #100 Ref 0 TAB.SL Orphenadrine ER 12 HR (Orphenadrine ER 12 HR) 100 Mg Tab 100 MG PO BID Muscle Spasm TAB Potassium Chloride ER (K-Tab) 20 Meq Tab 20 MEQ PO DAILY Electrolyte Replacement #30 Ref 0 TAB Zolpidem (Ambien) 10 Mg Tab 10 MG PO HS PRN INSOMNIA Ref 0 TAB ([Aspirin Chew]) 81 MG CHEW 81 MG PO DAILY heart Days 30 TAB.CHEW Discontinued Medications: Warfarin (Warfarin) 10 Mg Tab 13 MG PO DAILY Blood Clot Prevention #30 Ref 0 TAB Eliot Chi MD Aug 11, 2016 19:39
== END 2016-08-11 21:14 | disposition home or self-care (01) ==
LOC: NEPE 16:30 → NEDA 22:21 → NEDH 08-10 02:21 → NEPFCDU 08-10 04:15
PROVIDERS: ADMIT Hospitalist; ATTEND Hospitalist
DX: R07.9 Chest pain, unspecified (principal); I25.10 Atherosclerotic heart disease of native coronary artery without angina pectoris; I10 Essential (primary) hypertension; R74.8 Abnormal levels of other serum enzymes; E78.5 Hyperlipidemia, unspecified; E78.00 Pure hypercholesterolemia, unspecified; R79.1 Abnormal coagulation profile; I71.4 Abdominal aortic aneurysm, without rupture; E11.65 Type 2 diabetes mellitus with hyperglycemia
CPT/HCPCS: 71010; 74176; 80048; 80061; 81001; 82550; 82552; 82948; 83036; 83735; 84484; 85025; 85610; 85730; 93005; 93971; 96372; 96374; 99285; G0378; J1815; J2270; J2360

== ENCOUNTER 2016-10-21 12:33 | Emergency (ER) | payer OTHER, MEDICAID ==
[~2016-10-21] VITALS: Ht 175.3 cm; Wt 113.5 kg
[~2016-10-21 12:33] MED LIST changes: -Aspirin Chew CHEW; +CARD2TAB PO; +HYDR-3516 PO; -OXYGENTANK NAS.CANULA; -WARF-22 PO
[2016-10-21 12:34] VITALS: BP 200/100; PULSE 65; RESP 18; TEMP 98.1; O2SAT 96
--- NOTE | 2016-10-21 12:37 | PD ---
Physical Exam Date Seen by Provider: Oct 21, 2016 Time Seen by Provider: 12:37 Narrative 61 year old male presents to the emergency department for evaluation of left sided back pain. He states he got an injection of a muscle relaxant yesterday by his primary care physician and states he has pain with movement and ambulation. Patient states he has history of back pain, but exacerbated yesterday. No trauma. Patient is awaiting bed placement. Data Data Last Documented VS Vital Signs Date Time Temp Pulse Resp B/P Pulse Ox O2 Delivery O2 Flow Rate FiO2 10/21/16 12:34 98.1 65 18 200/100 96 MDM Supervised Visit with HELGA: Azalia Okeefe Oct 21, 2016 12:37
[2016-10-21 12:38] VITALS: BP 231/99
--- NOTE | 2016-10-21 13:04 | PD ---
HPI Chief Complaint: Back/ Neck Pain or Injury Time Seen by Provider: 13:04 Travel History International Travel<30 days: No Contact w/Intl Traveler<30days: No Traveled to known affect area: No History of Present Illness HPI 61-year-old male presents emergency Department with complaint of left anterior groin pain and left leg pain. He has history of chronic low back pain for the last couple years. He saw his primary care provider, Dr. Jhonathan Harris yesterday and was administered a Norflex injection to his left lateral hip area. Reports worsening of pain that started last night after the injection. He says his pain is not consistent with his low back pain. Reports difficulty with ambulation. Says he cannot bear weight on his left leg secondary to intense pain. Denies encopresis, incontinence, saddle anesthesias. Denies paresthesias , loss of sensation to bilateral lower extremities. Reports decreased range of motion secondary to pain to the left lower extremity. Denies change in urine or stool. Denies IV drug use. Denies cancer. Denies fever, chills, nausea, vomiting, abdominal pain. He is prescribed Lortab and tramadol for his chronic low back pain; last taken on Monday. Primary Care provider is Dr. Jhonathan Harris. Allergies to Dilaudid, clonidine, Vasotec, dawit inhibitors. History of hypertension, diabetes insulin-dependent, DVT and is on Eloquis, 3 cardiac stents. No other modifying factors or associated signs and symptoms. PFSH Past Medical History Hx Anticoagulant Therapy: Yes AAA: Yes (JUL 2011/ ) Anemia: Yes Arthritis: No Asthma: No Autoimmune Disease: No Blood Disorders: Yes (SICKLE CELL TRAIT) Anxiety: No Depression: No Heart Rhythm Problems: No Cancer: No Cardiac Catheterization: Yes Cardiovascular Problems: Yes (Stent placement x 2, AAA, DVT left leg ) High Cholesterol: Yes Chemotherapy: No Chest Pain: Yes Congestive Heart Failure: No COPD: No Cerebrovascular Accident: Yes Coronary Artery Disease: Yes Diabetes: Yes Diminished Hearing: No Deep Vein Thrombosis: Yes (LT LEG) Endocrine: No GERD: No Glaucoma: No Genitourinary: No Headaches: No Hepatitis: No Hiatal Hernia: No Heparin Induced Thrombocytopen: No Hypertension: Yes Immune Disorder: No Implanted Vascular Access Dvce: Yes (RIGHT INSULIN PUMP removed) Kidney Stones: No Musculoskeletal: No Neurologic: No Psychiatric: No Reproductive: No Respiratory: No Immunizations Current: Yes Migraines: No Myocardial Infarction: No Pancreatitis: Yes Radiation Therapy: No Renal Failure: No Seizures: No Sickle Cell Disease: Yes (TRAIT) Sleep Apnea: No Thyroid Disease: No Ulcer: No PNEUMOCCOCAL Vaccine (Year): 3 Past Surgical History Abdominal Aneurysm Repair: Yes (2012) Abdominal Surgery: Yes AICD: No Appendectomy: No Arteriovenous Shunt: No Body Medical Devices: STENTS X 4 Cardiac Surgery: Yes (stent placement recently ) Cholecystectomy: Yes Coronary Artery Bypass Graft: No Coronary Stent: Yes (2009 X 2, 2010 X2) Ear Surgery: No Endocrine Surgery: No Eye Surgery: No Genitourinary Surgery: No Gynecologic Surgery: No Insulin Pump: Yes (removed) Joint Replacement: Yes (left hip) Neurologic Surgery: No Oral Surgery: No Pacemaker: No Thoracic Surgery: No Other Surgery: Yes (FEM-POP L LEG; ) Social History Alcohol Use: No Tobacco Use: No (QUIT 2005) Substance Use: No Allergies-Medications (Allergen,Severity, Reaction): Coded Allergies: DAWIT Inhibitors (Verified Allergy, Severe, ANGIOEDEMA, 10/21/16) Vasotec (Verified Allergy, Severe, 10/21/16) ANGIOEDEMA Clonidine (Verified Allergy, Mild, DRY MOUTH, 10/21/16) Dilaudid (Verified Adverse Reaction, Intermediate, ITCHING, 10/21/16) Reported Meds & Prescriptions Reported Meds & Active Scripts Active Cardura (Doxazosin Mesylate) 2 Mg Tab 2 Mg PO DAILY Norvasc (Amlodipine Besylate) 10 Mg Tab 10 Mg PO DAILY Isosorbide Mononitrate ER (Isosorbide Mononitrate) 60 Mg Tab 60 Mg PO DAILY@07 Hydralazine (Hydralazine HCl) 50 Mg Tab 75 Mg PO Q6HR Cozaar (Losartan Potassium) 50 Mg Tab 100 Mg PO DAILY Plavix (Clopidogrel Bisulfate) 75 Mg Tab 75 Mg PO DAILY Lipitor (Atorvastatin Calcium) 40 Mg Tab 80 Mg PO DAILY Reported Aspirin 81 Mg Chew 81 Mg CHEW DAILY Lantus Inj (Insulin Glargine) 1,000 Unit/10 Ml Vial 60 Units SQ BID Orphenadrine ER 12 HR (Orphenadrine Citrate) 100 Mg Tab 100 Mg PO BID Ambien (Zolpidem Tartrate) 10 Mg Tab 10 Mg PO HS PRN Novolin R Inj (Insulin Human Regular) 1,000 Unit/10 Ml Vial 0 SQ TIDACHS Sliding Scale As Directed. Nitroglycerin SL (Nitroglycerin) 0.4 Mg Subl 0.4 Mg SL DIRECTED PRN ONE TABLET UNDER THE TONGUE NEEDED FOR CHEST PAIN, MAY REPEAT EVERY FIVE MINUTES FOR A TOTAL OF 3 DOSES OR CALL 911 IF NO RELIEF Lortab (Hydrocodone-Acetaminophen) 10-325 Mg Tab 1 Tab PO Q4H PRN K-Tab (Potassium Chloride) 20 Meq Tab 20 Meq PO DAILY Hydrochlorothiazide 50 Mg Tab 50 Mg PO DAILY Coreg (Carvedilol) 25 Mg Tab 25 Mg PO BID Gabapentin 800 Mg Tab 800 Mg PO TID Review of Systems Except as stated in HPI: all other systems reviewed are Neg Physical Exam Narrative GENERAL: Well-nourished, well-developed male patient, in no acute distress SKIN: Warm and dry. HEAD: Atraumatic. Normocephalic. EYES: Pupils equal and round. No scleral icterus. No injection or drainage. ENT: Mucosa pink and moist. Airway patent. NECK: Trachea midline. CARDIOVASCULAR: Regular rate and rhythm. No murmur appreciated. RESPIRATORY: No accessory muscle use. Lungs sounds clear and equal bilaterally. MUSCULOSKELETAL: Left hip with decreased range of motion; no erythema, edema, ecchymosis; with tenderness on abduction; tenderness on palpation anteriorly; no obvious deformity; left leg appears longer than right leg; patient unable to bear weight to the left lower extremity without intense pain at the bedside. No tenderness to the posterior calf elicited on palpation. Left lower extremity is supple and non-tense with 2+ pedal pulse and sensory intact and without erythema or edema. BACK: No midline point tenderness on palpation of the lumbar spine. No tenderness elicited on palpation to bilateral iliosacral areas. No obvious deformities. NEUROLOGICAL: Awake and alert. Oriented 3. No obvious cranial nerve deficits. Motor grossly within normal limits. Normal speech. PSYCHIATRIC: Appropriate mood and affect; insight and judgment normal. Data Data Last Documented VS Vital Signs Date Time Temp Pulse Resp B/P Pulse Ox O2 Delivery O2 Flow Rate FiO2 10/21/16 14:30 62 18 184/103 97 Room Air 10/21/16 12:34 98.1 Orders Hip, Uni(Ap&Lat) W Ap Pelvis (10/21/16 13:05) Complete Blood Count With Diff (10/21/16 13:05) Comprehensive Metabolic Panel (10/21/16 13:05) Blood Culture (10/21/16 13:05) Ecg Monitoring (10/21/16 13:05) Iv Access Insert/Monitor (10/21/16 13:05) Oximetry (10/21/16 13:05) C-Reactive Protein (Crp) (10/21/16 13:05) W[place]gren Sedimentation Rate (10/21/16 13:05) Acetamin-Hydrocod 325-5 Mg ([place] 5-325 (10/21/16 15:00) Labs Laboratory Tests Test 10/21/16 13:58 White Blood Count 5.6 TH/MM3 Red Blood Count 4.50 MIL/MM3 Hemoglobin 12.3 GM/DL Hematocrit 35.1 % Mean Corpuscular Volume 78.0 FL Mean Corpuscular Hemoglobin 27.3 PG Mean Corpuscular Hemoglobin 35.0 % Concent Red Cell Distribution Width 16.3 % Platelet Count 264 TH/MM3 Mean Platelet Volume 7.9 FL Neutrophils (%) (Auto) 69.0 % Lymphocytes (%) (Auto) 19.0 % Monocytes (%) (Auto) 8.8 % Eosinophils (%) (Auto) 2.6 % Basophils (%) (Auto) 0.6 % Neutrophils # (Auto) 3.9 TH/MM3 Lymphocytes # (Auto) 1.1 TH/MM3 Monocytes # (Auto) 0.5 TH/MM3 Eosinophils # (Auto) 0.1 TH/MM3 Basophils # (Auto) 0.0 TH/MM3 CBC Comment DIFF FINAL Differential Comment Erythrocyte Sedimentation Rate 46 mm/hr Sodium Level 138 MEQ/L Potassium Level 4.8 MEQ/L Chloride Level 104 MEQ/L Carbon Dioxide Level 30.1 MEQ/L Anion Gap 4 MEQ/L Blood Urea Nitrogen 15 MG/DL Creatinine 1.36 MG/DL Estimat Glomerular Filtration 65 ML/MIN Rate Random Glucose 335 MG/DL Calcium Level 9.2 MG/DL Total Bilirubin 0.4 MG/DL Aspartate Amino Transf 41 U/L (AST/SGOT) Alanine Aminotransferase 33 U/L (ALT/SGPT) Alkaline Phosphatase 127 U/L C-Reactive Protein 0.32 MG/DL Total Protein 7.4 GM/DL Albumin 2.9 GM/DL [facility] Medical Decision Making Medical Screen Exam Complete: Yes Emergency Medical Condition: Yes Medical Record Reviewed: Yes Differential Diagnosis Septic hip joint, fracture, arthritis, bone spur Narrative Course 61-year-old male with. I spoke with Dr. Jean, my attending physician, and she recommended to rule out septic joint. Patient placed on cardiopulmonary monitor. IV site obtained. Labs, blood cultures, ESR, CRP ordered. Left hip x -ray with AP pelvis ordered. 1537: Patient is seen up ambulating in his room and at the doorway of the room. Per the nurse He refused the [place] that was ordered for pain; He says he takes [place] 10 mg at home and is doing nothing for him and he wants something stronger. 1529: X-ray concludes Last 24 hours Impressions Hip and Pelvis X-Ray 10/21/16 1305 Signed Impressions: Service Date/Time: Friday, October 21, 2016 13:34 - CONCLUSION: 1. Left hip are plasty in excellent position. 2. Osseous structures of the pelvis are intact. Stewart Sebastian MD CBC unremarkable. CRP 0.32. 1540: Patient is up again in the doorway of the room, ambulating well on the left lower extremity. 1634: ESR 46. Patient has been in the fall multiple times, ambulating well, and requesting pain medications. Behavior suspicious for narcotic seeking. Patient is stable for discharge home. Patient verbalizes understanding and agreement with treatment plan. Patient is medically cleared and stable for discharge. Discussed reasons to return to the emergency department. Instructed patient to follow up with primary care provider. Patient agrees with treatment plan. The patients vital signs are stable and the patient is stable for outpatient follow-up and treatment. Patient discharged home, stable and in no acute distress. Diagnosis Primary Impression: Left hip pain Referrals: Primary Care Physician Patient Instructions: General Instructions, Hip Pain (ED) Additional Instructions: Continue home medications as prescribed Follow-up with primary care provider Med/Other Pt SpecificInfo: No Change to Meds, No Meds Exist/No RX given Disposition: DISCHARGE HOME Condition: Stable Sofiya Mendoza Oct 21, 2016 13:04
[2016-10-21 13:35] VITALS: BP 225/97; PULSE 55; RESP 18; O2SAT 97
--- NOTE | 2016-10-21 13:42 | RADRPT ---
EXAM DATE/TIME: 10/21/2016 13:34 [facility] COMPARISON: CHEST SINGLE AP, August 09, 2016, 17:41. INDICATIONS : Patient complains of left hip pain after hip injection from yesterday. MEDICAL HISTORY : None. SURGICAL HISTORY : Total left hip ENCOUNTER: Initial ACUITY: 1 day PAIN SCORE: 8/10 LOCATION: Left hip FINDINGS: The patient is post total hip arthroplasty on the left. Orthopedic hardware is in excellent position. There is no evidence of palpation. Note is made of the anterior portion of an endograft within the distal aorta and iliac vessels. CONCLUSION: 1. Left hip are plasty in excellent position. 2. Osseous structures of the pelvis are intact. Stewart Sebastian MD on October 21, 2016 at 13:40 Board Certified Radiologist. This report was verified electronically.
[2016-10-21 14:20] LABS: AUTOMATED NEUTROPHIL # 3.9 TH/MM3 (1.8-7.7); BASOPHIL % 0.6 % (0.0-2.0); EOSINOPHIL # 0.1 TH/MM3 (0-0.4); EOSINOPHIL % 2.6 % (0.0-4.0); HEMATOCRIT 35.1 % (39.0-51.0); HEMO FLAGS DIFF FINAL; LYMPHOCYTE # 1.1 TH/MM3 (1.0-4.8); MEAN CORPUSCULAR HEMOGLOBIN 27.3 PG (27.0-34.0); MONO % 8.8 % (0.0-8.0); PLATELET COUNT 264 TH/MM3 (150-450); RED CELL DISTRIBUTION WIDTH 16.3 % (11.6-17.2); WHITE BLOOD COUNT 5.6 TH/MM3 (4.0-11.0)
[2016-10-21 14:30] VITALS: BP 184/103; PULSE 62; RESP 18; O2SAT 97
[2016-10-21 14:45] LABS: ALKALINE PHOSPHATASE 127 U/L (45-117); TOTAL BILIRUBIN ADULT 0.4 MG/DL (0.2-1.0)
[2016-10-21] MEDS ORDERED: ASPI81CH CHEW (14:49)
[2016-10-21] MEDS ORDERED: ACETAMINOPHEN/HYDROcodone 325 MG/5 MG TAB PO ONE (15:00)
[2016-10-21 15:05] LABS: ALT (GPT) 33 U/L (12-78); ANION GAP 4 MEQ/L (5-15); AST (GOT) 41 U/L (15-37); BICARBONATE 30.1 MEQ/L (21.0-32.0); BLOOD UREA NITROGEN 15 MG/DL (7-18); CHLORIDE 104 MEQ/L (98-107); GLOMERULAR FILTRATION RATE 65 ML/MIN (>89); SODIUM (NA) 138 MEQ/L (136-145)
[2016-10-21 15:10] LABS: POTASSIUM 4.8 MEQ/L (3.5-5.1)
== END 2016-10-21 17:07 | disposition home or self-care (01) ==
LOC: NEPD 12:33
DX: M25.552 Pain in left hip (principal); M79.605 Pain in left leg; M54.5 Low back pain; I10 Essential (primary) hypertension; E11.9 Type 2 diabetes mellitus without complications; E78.00 Pure hypercholesterolemia, unspecified; Z79.4 Long term (current) use of insulin; Z79.01 Long term (current) use of anticoagulants; Z86.718 Personal history of other venous thrombosis and embolism; Z86.79 Personal history of other diseases of the circulatory system; Z86.2 Personal history of diseases of the blood and blood-forming organs and certain disorders involving the immune mechanism; Z87.19 Personal history of other diseases of the digestive system; Z87.891 Personal history of nicotine dependence
CPT/HCPCS: 73502; 80053; 85025; 85652; 86140; 87040; 99283

== ENCOUNTER 2016-12-22 01:50 | Observation (INO) | payer OTHER, MEDICAID ==
[2016-12-22] VITALS (10 sets, daily range): BP systolic 151–215; BP diastolic 70–104; PULSE 58–73; RESP 16–20; TEMP 97.3–98.8; O2SAT 93–100
[~2016-12-22 01:50] MED LIST changes: +ASPI81CH CHEW; -Aspirin Chew PO; -HYDR-3516 PO; -METO5TAB PO
[2016-12-22] MEDS ORDERED: KLON2TAB PO (02:33)
[2016-12-22] MEDS ORDERED: hydrALAZINE HCL 20 MG/ML VIAL IV PUSH ONE (02:45)
[2016-12-22] MEDS ORDERED: SODIUM CHLORIDE 0.9% FLUSH 10 ML FLUSH IVF PRN (02:45)
--- NOTE | 2016-12-22 02:53 | RADRPT ---
EXAM DATE/TIME: 12/22/2016 02:46 [facility] COMPARISON: CHEST SINGLE AP, August 09, 2016, 17:41. INDICATIONS : Left side chest pain. MEDICAL HISTORY : Cardiovascular disease. Hypertension SURGICAL HISTORY : Coronary artery stent. ENCOUNTER: Initial ACUITY: 1 day PAIN SCORE: 8/10 LOCATION: Left chest FINDINGS: A single view of the chest demonstrates the lungs to be symmetrically aerated without evidence of mas s, infiltrate or effusion. The cardiomediastinal contours are unremarkable. Osseous structures are intact. CONCLUSION: Normal examination. Xander Mcwilliams MD on December 22, 2016 at 2:51 Board Certified Radiologist. This report was verified electronically.
--- NOTE | 2016-12-22 03:07 | RADRPT ---
EXAM DATE/TIME: 12/22/2016 02:49 [facility] COMPARISON: CT BRAIN W/O CONTRAST, May 19, 2015, 7:56. INDICATIONS : Headaches past 3 days. RADIATION DOSE: 54.35 CTDIvol (mGy) MEDICAL HISTORY : Cardiovascular disease. Hypertension. Diabetes mellitus type 2. SURGICAL HISTORY : Coronary artery stent. ENCOUNTER: Initial ACUITY: 3 days PAIN SCALE: 8/10 LOCATION: cranial TECHNIQUE: Multiple contiguous axial images were obtained of the head. Using automated exposure control and adj ustment of the mA and/or kV according to patient size, radiation dose was kept as low as reasonably a chievable to obtain optimal diagnostic quality images. FINDINGS: CEREBRUM: The ventricles are normal for age. No evidence of midline shift, mass lesion, hemorrhage or acute in farction. Old stroke in the left centrum semiovale region unchanged. Old right-sided caudate nucleus stroke. No extra-axial fluid collections are seen. POSTERIOR FOSSA: The cerebellum and brainstem are intact. The 4th ventricle is midline. The cerebellopontine angle i s unremarkable. EXTRACRANIAL: The visualized portion of the orbits is intact. SKULL: The calvaria is intact. No evidence of skull fracture. CONCLUSION: Normal examination for an acute process. Stable bilateral lacunar strokes unchanged. Xander Mcwilliams MD on December 22, 2016 at 3:04 Board Certified Radiologist. This report was verified electronically.
[2016-12-22 03:14] LABS: AUTOMATED NEUTROPHIL # 2.8 TH/MM3 (1.8-7.7); BASOPHIL % 0.8 % (0.0-2.0); EOSINOPHIL # 0.2 TH/MM3 (0-0.4); EOSINOPHIL % 3.9 % (0.0-4.0); HEMO FLAGS DIFF FINAL; LYMPH % 28.1 % (9.0-44.0); LYMPHOCYTE # 1.4 TH/MM3 (1.0-4.8); MEAN CORPUSCULAR HEMOGLOBIN 25.5 PG (27.0-34.0); MEAN CORPUSCULAR HGB CONC 32.7 % (32.0-36.0); MONO % 9.3 % (0.0-8.0); NEUT % 57.9 % (16.0-70.0); PLATELET COUNT 142 TH/MM3 (150-450); RED BLOOD COUNT 4.48 MIL/MM3 (4.50-5.90); RED CELL DISTRIBUTION WIDTH 17.7 % (11.6-17.2); WHITE BLOOD COUNT 4.9 TH/MM3 (4.0-11.0)
[2016-12-22 03:22] LABS: APTT (PATIENT) 27.3 SEC (24.3-30.1); PROTHROMBIN TIME - PATIENT 10.9 SEC (9.8-11.6)
[2016-12-22 03:43] LABS: BICARBONATE 29.5 MEQ/L (21.0-32.0); MAGNESIUM 2.2 MG/DL (1.5-2.5); POTASSIUM 3.5 MEQ/L (3.5-5.1)
--- NOTE | 2016-12-22 04:27 | PD ---
HPI Chief Complaint: Hypertension Time Seen by Provider: 02:06 Travel History International Travel<30 days: No Contact w/Intl Traveler<30days: No Traveled to known affect area: No History of Present Illness HPI 61yo M with PMH of CAD s/p cardiac stent, HTN, DM, DVT on eliquis here with c/o chest pain. Pt initially decided to come to the ED because his blood pressure was elevated at home but as he was getting dress, he started feeling left sided chest pressure that is nonradiating. States he took 2 sublingual nitros which helped with the chest pain but made his headache worst. Has been having intermittent mild frontal headache for 1 week and states he gets that when his blood pressure is elevated. Denies any fever, cough, sob, n/v, abdominal pain , focal weakness or numbness. 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 PFSH Past Medical History Hx Anticoagulant Therapy: Yes AAA: Yes (JUL 2011/ ) Anemia: Yes Arthritis: No Asthma: No Autoimmune Disease: No Blood Disorders: Yes (SICKLE CELL TRAIT) Anxiety: No Depression: No Heart Rhythm Problems: No Cancer: No Cardiac Catheterization: Yes Cardiovascular Problems: Yes (Stent placement x 2, AAA, DVT left leg ) High Cholesterol: Yes Chemotherapy: No Chest Pain: Yes Congestive Heart Failure: No COPD: No Cerebrovascular Accident: Yes Coronary Artery Disease: Yes Diabetes: Yes Patient Takes Glucophage: No Diminished Hearing: No Deep Vein Thrombosis: Yes (LT LEG) Endocrine: No GERD: No Glaucoma: No Genitourinary: No Headaches: No Hepatitis: No Hiatal Hernia: No Heparin Induced Thrombocytopen: No Hypertension: Yes Immune Disorder: No Implanted Vascular Access Dvce: Yes (RIGHT INSULIN PUMP removed) Kidney Stones: No Musculoskeletal: No Neurologic: No Psychiatric: No Reproductive: No Respiratory: No Immunizations Current: Yes Migraines: No Myocardial Infarction: No Pancreatitis: Yes Radiation Therapy: No Renal Failure: No Seizures: No Sickle Cell Disease: Yes (TRAIT) Sleep Apnea: No Thyroid Disease: No Ulcer: No PNEUMOCCOCAL Vaccine (Year): 3 Past Surgical History Abdominal Aneurysm Repair: Yes (2012) Abdominal Surgery: Yes AICD: No Appendectomy: No Arteriovenous Shunt: No Body Medical Devices: STENTS X 4 Cardiac Surgery: Yes (stent placement recently ) Cholecystectomy: Yes Coronary Artery Bypass Graft: No Coronary Stent: Yes (2010 X 2, 2011 X2) Ear Surgery: No Endocrine Surgery: No Eye Surgery: No Genitourinary Surgery: No Gynecologic Surgery: No Insulin Pump: Yes (removed) Joint Replacement: Yes (left hip) Neurologic Surgery: No Oral Surgery: No Pacemaker: No Thoracic Surgery: No Other Surgery: Yes (Stent placement x 2 ) Social History Alcohol Use: No Tobacco Use: No (QUIT 2005) Substance Use: Yes (COCAINE ) Allergies-Medications (Allergen,Severity, Reaction): Coded Allergies: DAWIT Inhibitors (Verified Allergy, Severe, ANGIOEDEMA, 12/22/16) Vasotec (Verified Allergy, Severe, 12/22/16) ANGIOEDEMA Clonidine (Verified Allergy, Mild, DRY MOUTH, 10/21/16) Dilaudid (Verified Adverse Reaction, Intermediate, ITCHING, 12/22/16) Reported Meds & Prescriptions Reported Meds & Active Scripts Active Cardura (Doxazosin Mesylate) 2 Mg Tab 2 Mg PO DAILY Norvasc (Amlodipine Besylate) 10 Mg Tab 10 Mg PO DAILY Isosorbide Mononitrate ER (Isosorbide Mononitrate) 60 Mg Tab 60 Mg PO DAILY@07 Cozaar (Losartan Potassium) 50 Mg Tab 100 Mg PO DAILY Plavix (Clopidogrel Bisulfate) 75 Mg Tab 75 Mg PO DAILY Lipitor (Atorvastatin Calcium) 40 Mg Tab 80 Mg PO DAILY Reported Klonopin (Clonazepam) 2 Mg Tab 2 Mg PO BID Aspirin 81 Mg Chew 81 Mg CHEW DAILY Lantus Inj (Insulin Glargine) 1,000 Unit/10 Ml Vial 60 Units SQ BID Orphenadrine ER 12 HR (Orphenadrine Citrate) 100 Mg Tab 100 Mg PO BID Ambien (Zolpidem Tartrate) 10 Mg Tab 10 Mg PO HS PRN Novolin R Inj (Insulin Human Regular) 1,000 Unit/10 Ml Vial 0 SQ TIDACHS Sliding Scale As Directed. Nitroglycerin SL (Nitroglycerin) 0.4 Mg Subl 0.4 Mg SL DIRECTED PRN ONE TABLET UNDER THE TONGUE NEEDED FOR CHEST PAIN, MAY REPEAT EVERY FIVE MINUTES FOR A TOTAL OF 3 DOSES OR CALL 911 IF NO RELIEF Lortab (Hydrocodone-Acetaminophen) 10-325 Mg Tab 1 Tab PO Q4H PRN K-Tab (Potassium Chloride) 20 Meq Tab 20 Meq PO DAILY Hydrochlorothiazide 50 Mg Tab 50 Mg PO DAILY Coreg (Carvedilol) 25 Mg Tab 25 Mg PO BID Gabapentin 800 Mg Tab 800 Mg PO TID Review of Systems Except as stated in HPI: all other systems reviewed are Neg Physical Exam Narrative GENERAL: 61yo M not in distress. SKIN: Focused skin assessment warm/dry. HEAD: Atraumatic. Normocephalic. EYES: Pupils equal and round. No scleral icterus. No injection or drainage. ENT: No nasal bleeding or discharge. Mucous membranes pink and moist. NECK: Trachea midline. No JVD. CARDIOVASCULAR: Regular rate and rhythm. No murmur appreciated. RESPIRATORY: No accessory muscle use. Clear to auscultation. Breath sounds equal bilaterally. GASTROINTESTINAL: Abdomen soft, non-tender, nondistended. No rebound tenderness or guarding. MUSCULOSKELETAL: No obvious deformities. No clubbing. No cyanosis. No edema. NEUROLOGICAL: Awake and alert. No obvious cranial nerve deficits. Motor grossly within normal limits. Normal speech. PSYCHIATRIC: Appropriate mood and affect; insight and judgment normal. Data Data Last Documented VS Vital Signs Date Time Temp Pulse Resp B/P Pulse Ox O2 Delivery O2 Flow Rate FiO2 12/22/16 02:25 64 18 12/22/16 01:52 98.8 215/104 96 Room Air Orders Electrocardiogram (12/22/16 02:31) Basic Metabolic Panel (Bmp) (12/22/16 02:31) Ckmb (Isoenzyme) Profile (12/22/16 02:31) Complete Blood Count With Diff (12/22/16 02:31) Magnesium (Mg) (12/22/16 02:31) Prothrombin Time / Inr (Pt) (12/22/16 02:31) Act Partial Throm Time (Ptt) (12/22/16 02:31) Troponin I (12/22/16 02:31) Chest, Single Ap (12/22/16 02:31) Ecg Monitoring (12/22/16 02:31) Bilateral Bp Monitoring (12/22/16 02:31) Iv Access Insert/Monitor (12/22/16 02:31) Oximetry (12/22/16 02:31) Oxygen Administration (12/22/16 02:31) Sodium Chloride 0.9% Flush (Ns Flush) (12/22/16 02:45) Ct Brain W/O Iv Contrast(Rout) (12/22/16 ) Hydralazine Inj (Apresoline Inj) (12/22/16 02:45) CKMB (12/22/16 02:30) CKMB% (12/22/16 02:30) Admit Order (Ed Use Only) (12/22/16 04:20) Labs Laboratory Tests Test 12/22/16 02:30 White Blood Count 4.9 TH/MM3 Red Blood Count 4.48 MIL/MM3 Hemoglobin 11.4 GM/DL Hematocrit 35.0 % Mean Corpuscular Volume 78.0 FL Mean Corpuscular Hemoglobin 25.5 PG Mean Corpuscular Hemoglobin 32.7 % Concent Red Cell Distribution Width 17.7 % Platelet Count 142 TH/MM3 Mean Platelet Volume 8.6 FL Neutrophils (%) (Auto) 57.9 % Lymphocytes (%) (Auto) 28.1 % Monocytes (%) (Auto) 9.3 % Eosinophils (%) (Auto) 3.9 % Basophils (%) (Auto) 0.8 % Neutrophils # (Auto) 2.8 TH/MM3 Lymphocytes # (Auto) 1.4 TH/MM3 Monocytes # (Auto) 0.5 TH/MM3 Eosinophils # (Auto) 0.2 TH/MM3 Basophils # (Auto) 0.0 TH/MM3 CBC Comment DIFF FINAL Differential Comment Prothrombin Time 10.9 SEC Prothromb Time International 1.0 RATIO Ratio Activated Partial 27.3 SEC Thromboplast Time Sodium Level 144 MEQ/L Potassium Level 3.5 MEQ/L Chloride Level 106 MEQ/L Carbon Dioxide Level 29.5 MEQ/L Anion Gap 9 MEQ/L Blood Urea Nitrogen 18 MG/DL Creatinine 1.42 MG/DL Estimat Glomerular Filtration 62 ML/MIN Rate Random Glucose 158 MG/DL Calcium Level 8.5 MG/DL Magnesium Level 2.2 MG/DL Total Creatine Kinase 463 U/L Creatine Kinase MB 3.0 NG/ML Creatine Kinase MB % 0.6 % Troponin I 0.07 NG/ML [facility] Medical Decision Making Medical Screen Exam Complete: Yes Emergency Medical Condition: Yes Interpretation(s) EKG: NSR 62bpm. Normal axis. No ST segment elevation or depression. Differential Diagnosis ACS vs. musculoskeletal pain vs. migraine headache vs. hypertensive emergency Narrative Course 61yo M here for elevated blood pressure but started having left sided chest pain when he was getting dressed. Labs reviewed, no leukocytosis. Troponin elevated at 0.07. Last troponin pt had was 0.06, will trend. Creatinine mildly increased from prior at 1.42. CXR normal. CT brain normal for an acute process. Stable bilateral lacunar strokes unchanged. Pt given hydralazine 10mg IV for blood pressure. 162/74 is the repeat BP. Pt reevaluated at bedside and states headache and chest pain is gone. Still would want to admit pt for chest pain center for serial EKG and cardiac enzymes. However, troponin 0.07 is too high for chest pain center so will admit to hospitalist. Discussed with Dr. Rodríguez and accepted to his service. Gilda Wetzel DO Dec 22, 2016 04:27
[2016-12-22] MEDS ORDERED: MORPHINE SULFATE 4 MG/ML INJ IV PRN (05:30)
[2016-12-22] MEDS ORDERED: ASPIRIN 325 MG TAB PO SCH (05:30)
[2016-12-22] MEDS ORDERED: NITROGLYCERIN 0.4 MG SL 25 TABS/BTL SL PRN (05:30)
[2016-12-22] MEDS: HEPARIN SODIUM - SQ 10,000 UNITS/ML VIAL SQ SCH ×3 (06:05→20:29)
[2016-12-22 06:57] LABS: CKMB 2.6 NG/ML (0.5-3.6)
[2016-12-22] MEDS ORDERED: GLUCAGON 1 MG/ML VIAL OTHER PRN ×2 (07:45→10:45)
[2016-12-22] MEDS ORDERED: DEXTROSE 50% IN WATER 50 ML VIAL(D50) IV PRN ×2 (07:45→10:45)
[2016-12-22] MEDS: ASPIRIN 81 MG CHEW TAB CHEW SCH (08:19)
[2016-12-22] MEDS: ATORVASTATIN 80 MG TAB PO SCH (08:19)
[2016-12-22] MEDS: LOSARTAN 50 MG TAB PO SCH (08:19)
[2016-12-22] MEDS: SODIUM CHLOR 0.9% 1000 ML INJ 1,000 ML IV SCH ×2 (08:19→20:32)
[2016-12-22] MEDS: CLOPIDOGREL 75 MG TAB PO SCH (08:20)
[2016-12-22] MEDS: CARVEDILOL 12.5 MG TAB PO SCH ×2 (08:20→20:30)
[2016-12-22] MEDS: DOXAZOSIN MESYLATE 2 MG TAB PO SCH (09:00)
[2016-12-22] MEDS: MORPHINE SULFATE 4 MG/ML INJ IV PUSH PRN ×3 (10:30→18:47)
[2016-12-22] MEDS ORDERED: cloNIDine HCL 0.1 MG TAB PO PRN (11:00)
[2016-12-22] MEDS: INSULIN ASPART SUPPLEMENTAL SCALE SQ SCH ×3 (11:00→20:57)
[2016-12-22] MEDS ORDERED: INSULIN ASPART SUPPLEMENTAL SCALE SQ SCH (11:00)
[2016-12-22] MEDS ORDERED: ZOLPIDEM TARTRATE 10 MG TAB PO PRN (11:00)
--- NOTE | 2016-12-22 11:01 | HHI.HP ---
[facility] Jhonathan Harris MD Admission Diagnosis Chest pain Diagnoses: (1) Chest pain Diagnosis: Principal (2) PAD (peripheral artery disease) Diagnosis: Secondary (3) CAD (coronary artery disease) Diagnosis: Secondary Travel History International Travel<30 Days: No Contact w/Intl Traveler <30 Da: No Traveled to Known Affected Are: No History of Present Illness Mr. William is a 61-year-old male. He has a history of coronary artery disease and peripheral vascular disease. Today he is here secondary to an onset of chest pain overnight. He has reported feeling more dyspnea in the past 3-5 days. Last night he had an onset of tight left-sided chest pain that concerned him so he has come into the emergency department. He has improved but remains. Troponins are elevated at 0.07 for set 1 and 2. In the ER he had benefit with nitroglycerin tablets. Other findings which may be correlated are hypertensive urgency with a blood pressure maximum of 215/103. She also has some mild rhabdomyolysis. Despite these findings he doesn't have any clinical finding of myositis showing no exacerbation of the pain with movement or deep breathing. Has not patient follows with cardiology, Dr. Brooks. No other complaints tonight. He denies any coughing, fever, chills, or abdominal/GI symptoms. Review of Systems Constitutional: COMPLAINS OF: Fatigue, DENIES: Fever, Weight loss, Chills Eyes: DENIES: Blurred vision, Diplopia Ears, nose, mouth, throat: DENIES: Hearing loss, Vertigo Respiratory: DENIES: Cough, Wheezing, Shortness of breath Cardiovascular: COMPLAINS OF: Chest pain, DENIES: Palpitations, Syncope Gastrointestinal: DENIES: Abdominal pain, Black stools, Bloody stools Musculoskeletal: DENIES: Joint pain, Muscle aches, Stiffness, Joint Swelling, Back pain, Neck pain Integumentary: DENIES: Abnormal pigmentation Hematologic/lymphatic: DENIES: Bruising Immunologic/allergic: DENIES: Eczema Neurologic: COMPLAINS OF: Headache, DENIES: Abnormal gait Psychiatric: DENIES: Anxiety, Confusion Past Family Social History Past Medical History Diabetes mellitus Hypertension Coronary artery disease History of DVT Sickle cell trait Chronic pain Past Surgical History Repair of abdominal aortic aneurysm Cholecystectomy Cardiac stenting Insulin pump placement, subsequently removed Left hip replacement Femoral-popliteal bypass Reported Medications Reported Meds & Active Scripts Active Cardura (Doxazosin Mesylate) 2 Mg Tab 2 Mg PO DAILY Norvasc (Amlodipine Besylate) 10 Mg Tab 10 Mg PO DAILY Isosorbide Mononitrate ER (Isosorbide Mononitrate) 60 Mg Tab 60 Mg PO DAILY@07 Cozaar (Losartan Potassium) 50 Mg Tab 100 Mg PO DAILY Plavix (Clopidogrel Bisulfate) 75 Mg Tab 75 Mg PO DAILY Lipitor (Atorvastatin Calcium) 40 Mg Tab 80 Mg PO DAILY Reported Klonopin (Clonazepam) 2 Mg Tab 2 Mg PO BID Aspirin 81 Mg Chew 81 Mg CHEW DAILY Lantus Inj (Insulin Glargine) 1,000 Unit/10 Ml Vial 60 Units SQ BID Orphenadrine ER 12 HR (Orphenadrine Citrate) 100 Mg Tab 100 Mg PO BID Ambien (Zolpidem Tartrate) 10 Mg Tab 10 Mg PO HS PRN Novolin R Inj (Insulin Human Regular) 1,000 Unit/10 Ml Vial 0 SQ TIDACHS Sliding Scale As Directed. Nitroglycerin SL (Nitroglycerin) 0.4 Mg Subl 0.4 Mg SL DIRECTED PRN ONE TABLET UNDER THE TONGUE NEEDED FOR CHEST PAIN, MAY REPEAT EVERY FIVE MINUTES FOR A TOTAL OF 3 DOSES OR CALL 911 IF NO RELIEF Lortab (Hydrocodone-Acetaminophen) 10-325 Mg Tab 1 Tab PO Q4H PRN K-Tab (Potassium Chloride) 20 Meq Tab 20 Meq PO DAILY Hydrochlorothiazide 50 Mg Tab 50 Mg PO DAILY Coreg (Carvedilol) 25 Mg Tab 25 Mg PO BID Gabapentin 800 Mg Tab 800 Mg PO TID Allergies: Coded Allergies: DAWIT Inhibitors (Verified Allergy, Severe, ANGIOEDEMA, 12/22/16) Vasotec (Verified Allergy, Severe, 12/22/16) ANGIOEDEMA Clonidine (Verified Allergy, Mild, DRY MOUTH, 10/21/16) Dilaudid (Verified Adverse Reaction, Intermediate, ITCHING, 12/22/16) Active Ordered Medications Administered Medications Medications (Trade) Dose Ordered Sig/Conchita Route PRN Reason Start Time Stop Time Status Last Admin Dose Admin Morphine Sulfate (Morphine Inj) 2 mg Q4H PRN IV PUSH chest pain 12/22/16 05:15 12/22/16 10:30 Heparin Sodium (Porcine) 5000 units 5,000 units Q8H SQ 12/22/16 06:00 12/22/16 06:05 Sodium Chloride (NS 1000 ml Inj) 1,000 ml @ 84 mls/hr [id number] IV 12/22/16 07:45 12/22/16 08:19 Amlodipine Besylate (Norvasc) 10 mg DAILY PO 12/22/16 09:00 12/22/16 08:19 Aspirin (Aspirin Chew) 81 mg DAILY CHEW 12/22/16 09:00 12/22/16 08:19 Atorvastatin Calcium (Lipitor) 80 mg DAILY PO 12/22/16 09:00 12/22/16 08:19 Carvedilol (Coreg) 25 mg BID PO 12/22/16 09:00 12/22/16 08:20 Clopidogrel Bisulfate (Plavix) 75 mg DAILY PO 12/22/16 09:00 12/22/16 08:20 Doxazosin Mesylate (Cardura) 2 mg DAILY PO 12/22/16 09:00 12/22/16 09:00 Losartan Potassium (Cozaar) 100 mg DAILY PO 12/22/16 09:00 12/22/16 08:19 Family History None Social History History of smoking, stopped in 2005 No alcohol abuse Distant past history of cocaine use, no use for over 2 decades. Physical Exam Vital Signs Vital Signs Date Time Temp Pulse Resp B/P Pulse Ox O2 Delivery O2 Flow Rate FiO2 12/22/16 08:47 98 12/22/16 07:12 98.2 60 20 162/87 94 12/22/16 07:10 18 12/22/16 06:06 16 99 12/22/16 06:05 69 18 152/84 100 Room Air 12/22/16 04:33 68 18 168/74 99 12/22/16 02:25 64 18 12/22/16 01:52 98.8 71 18 215/104 96 Room Air Physical Exam GENERAL: NAD, A&Ox3 SKIN: Warm and dry. HEAD: Normocephalic. EYES: No scleral icterus. No injection or drainage. NECK: Supple, trachea midline. No JVD or lymphadenopathy. CARDIOVASCULAR: Regular rate and rhythm without murmurs, gallops, or rubs. RESPIRATORY: Breath sounds equal bilaterally. No accessory muscle use. GASTROINTESTINAL: Abdomen soft, non-tender, nondistended. MUSCULOSKELETAL: No cyanosis, or edema. Laboratory Laboratory Tests Test 12/22/16 12/22/16 02:30 05:40 White Blood Count 4.9 Red Blood Count 4.48 Hemoglobin 11.4 Hematocrit 35.0 Mean Corpuscular Volume 78.0 Mean Corpuscular Hemoglobin 25.5 Mean Corpuscular Hemoglobin 32.7 Concent Red Cell Distribution Width 17.7 Platelet Count 142 Mean Platelet Volume 8.6 Neutrophils (%) (Auto) 57.9 Lymphocytes (%) (Auto) 28.1 Monocytes (%) (Auto) 9.3 Eosinophils (%) (Auto) 3.9 Basophils (%) (Auto) 0.8 Neutrophils # (Auto) 2.8 Lymphocytes # (Auto) 1.4 Monocytes # (Auto) 0.5 Eosinophils # (Auto) 0.2 Basophils # (Auto) 0.0 CBC Comment DIFF FINAL Differential Comment Prothrombin Time 10.9 Prothromb Time International 1.0 Ratio Activated Partial 27.3 Thromboplast Time Sodium Level 144 Potassium Level 3.5 Chloride Level 106 Carbon Dioxide Level 29.5 Anion Gap 9 Blood Urea Nitrogen 18 Creatinine 1.42 Estimat Glomerular Filtration 62 Rate Random Glucose 158 Calcium Level 8.5 Magnesium Level 2.2 Total Creatine Kinase 463 393 Creatine Kinase MB 3.0 2.6 Creatine Kinase MB % 0.6 0.7 Troponin I 0.07 0.07 Result Diagram: 12/22/16 0230 12/22/16 0230 Assessment and Plan Problem List: (1) CAD (coronary artery disease) ICD Code: I25.10 Status: Chronic (2) Chest pain ICD Code: R07.9 Status: Acute Assessment and Plan Assessment and plan 61-year-old male with a history of coronary artery disease admitted with chest pain. Chest pain Evaluate for ACS Follow cardiac enzymes Aspirin daily When necessary oxygen When necessary morphine for pain. When necessary nitroglycerin Follow on telemetry Cardiology consult Hypertensive urgency on hypertension Continue baseline blood pressure medications Add when necessary clonidine. Monitor blood pressures Adjust if needed hypertensive urgency may have been contributory to his chest pain Diabetes mellitus Insulin sliding scale Follow blood sugars diabetic diet Sickle cell trait Anemia (mild) Unlikely contributory DVT prophylaxis History of DVT Stewart Salter MD Dec 22, 2016 11:00
[2016-12-22 11:52] LABS: CKMB 2.6 NG/ML (0.5-3.6)
[2016-12-22] MEDS ORDERED: [UNRECOGNIZED DRUG - CODE] T-DERMAL (12:51)
[2016-12-22] MEDS ORDERED: APIX5TAB PO (12:55)
[2016-12-22] MEDS ORDERED: ZETI10TA5 PO (12:55)
[2016-12-22] MEDS: GABAPENTIN 400 MG CAP PO SCH ×2 (13:04→17:05)
[2016-12-22] MEDS: ACETAMINOPHEN/HYDROcodone 325 MG/10 MG TAB PO PRN ×2 (13:08→23:13)
--- NOTE | 2016-12-22 13:26 | MB ---
cc: EBONY YARBROUGH MD DATE OF CONSULTATION: 12/22/2016 REASON FOR CONSULTATION Chest pain and elevated troponin. HISTORY OF PRESENT ILLNESS Mr. William is a 61-year-old man you does have a history of hypertension and PCI and stent by Dr. Holland in July 2016. At that time he had a 3.0 x 15 mm JG deployed in his RCA and post dilated to 3.5 mm. The patient reports he has been doing reasonably well until the last several days. He notes his blood pressure has been quite high at home, around 200. He subsequently developed a headache which has been fairly unremitting and he has also had some intermittent episodes of chest pain. There did not appear to be any precipitating or relieving factors. The patient questions whether it is related to his blood pressure. He does report that he has been compliant with the meds. He, however, has been somewhat noncompliant with dietary sodium restrictions. REVIEW OF SYSTEMS Except as mentioned in the HPI, all 12 systems are negative. PAST MEDICAL HISTORY 1. Hypertension. 2. Hyperlipidemia. 3. Diabetes. 4. CAD. 5. Sickle-cell trait. MEDICATIONS Outpatient medications: The patient is not sure and his is going to bring in the meds. ALLERGIES 1. DAWIT INHIBITORS WHICH CAUSED ANGIOEDEMA. 2. DILAUDID. 3. OF NOTE THERE IS A CLONIDINE LISTED ALLERGY; HOWEVER, THE PATIENT REPORTS THAT HE HAS BEEN TAKING THAT RECENTLY. SOCIAL HISTORY The patient is a former smoker and former cocaine user. FAMILY HISTORY Noncontributory. PHYSICAL EXAMINATION VITAL SIGNS: Current blood pressure 162/79; it was 225/97 on arrival. Heart rate 61, respiratory rate 20. GENERAL: In general he is a morbidly obese man who is in no apparent distress. NECK: His neck is free from JVD. LUNGS: The lungs are bilaterally clear to auscultation. CARDIOVASCULAR: He has a normal S1 and S2. I do not appreciate any murmurs, rubs or gallops. ABDOMEN: The abdomen is soft. EXTREMITIES: The extremities are free from edema. LABORATORY Lab values are significant for a creatinine of 1.42. His serial troponins are 0.07 x3. His CPKs are mildly elevated at 463/393/345. ECG ECG shows sinus bradycardia with nonspecific ST-T wave changes. IMPRESSIONS/RECOMMENDATIONS 1. Chest pain: The patient had been asymptomatic until he had difficulties controlling his blood pressure. His troponin is elevated, felt secondary to uncontrolled hypertension. I did discuss ischemia evaluation versus medical management with the patient. At this point he wishes medical management. This is reasonable as we both feel it is most likely secondary to his hypertension. 2. Hypertension: The patient is currently in control. At this point I would restart his home meds and keep him on a low-salt diet. I did explain how important this is to him as well. I would use clonidine p.r.n. at this point should his BP remain elevated. 3. Diabetes: This will be managed by the primary team. 4. Renal insufficiency. 5. NSTEMI- secondary to HTN and CKD Ebony Yarbrough M.D. BRODERICK/TEZ /12:43 PM /12:58 PM SUSHILA
--- NOTE | 2016-12-22 14:27 | EKG ---
Date Performed: 12/22/2016 Time Performed: 05:38:34 PTAGE: 61 years EKG: SINUS BRADYCARDIA NONSPECIFIC T-WAVE ABNORMALITY BORDERLINE ECG Compared to prior tracing n o significant change PREVIOUS TRACING : 12/22/2016 02.07 DOCTOR: Sriram Borges Interpretating Date/Time 12/22/2016 14:26:45
--- NOTE | 2016-12-22 14:27 | EKG ---
Date Performed: 12/22/2016 Time Performed: 02:07:39 PTAGE: 61 years EKG: Sinus rhythm NONSPECIFIC T-WAVE ABNORMALITY BORDERLINE ECG Compared to PREVIOUS TRACING , nonspecific ST changes are more prominent. PREVIOUS TRACIN 7 00.41 DOCTOR: Sriram Borges Interpretating Date/Time 12/22/2016 14:26:32
[2016-12-22] MEDS: hydrALAZINE HCL 25 MG TAB PO SCH ×2 (15:25→20:30)
[2016-12-22 18:02] LABS: HDL CHOLESTEROL 33.5 MG/DL (40.0-60.0)
[2016-12-22 18:14] LABS: CKMB 3.4 NG/ML (0.5-3.6)
[2016-12-22] MEDS: clonazePAM 1 MG TAB PO SCH (20:30)
[2016-12-22] MEDS: INSULIN DETEMIR 100 UNITS/ML VIAL SQ SCH (20:50)
[2016-12-22] MEDS: ORPHENADRINE CITRATE 100 MG SUSTAINED RELEASE TAB PO SCH (21:20)
[2016-12-23 04:54] VITALS: BP 187/84; PULSE 78; RESP 20; TEMP 97.6; O2SAT 93
[2016-12-23 05:03] LABS: WHITE BLOOD COUNT 4.4 TH/MM3 (4.0-11.0)
[2016-12-23 05:04] LABS: AUTOMATED NEUTROPHIL # 2.6 TH/MM3 (1.8-7.7); BASOPHIL % 0.8 % (0.0-2.0); EOSINOPHIL # 0.2 TH/MM3 (0-0.4); EOSINOPHIL % 4.2 % (0.0-4.0); HEMATOCRIT 33.9 % (39.0-51.0); HEMO FLAGS DIFF FINAL; LYMPH % 27.2 % (9.0-44.0); LYMPHOCYTE # 1.2 TH/MM3 (1.0-4.8); MEAN CELL VOLUME 78.2 FL (80.0-100.0); MEAN CORPUSCULAR HGB CONC 34.6 % (32.0-36.0); MONO % 9.5 % (0.0-8.0); NEUT % 58.3 % (16.0-70.0); PLATELET COUNT 151 TH/MM3 (150-450); RED BLOOD COUNT 4.34 MIL/MM3 (4.50-5.90); RED CELL DISTRIBUTION WIDTH 17.4 % (11.6-17.2)
[2016-12-23] MEDS: hydrALAZINE HCL 25 MG TAB PO SCH (05:08)
[2016-12-23] MEDS: HEPARIN SODIUM - SQ 10,000 UNITS/ML VIAL SQ SCH ×2 (05:09→13:30)
[2016-12-23] MEDS: MORPHINE SULFATE 4 MG/ML INJ IV PUSH PRN ×2 (05:28→09:59)
[2016-12-23 05:34] LABS: BICARBONATE 27.6 MEQ/L (21.0-32.0)
[2016-12-23 05:36] LABS: POTASSIUM 4.4 MEQ/L (3.5-5.1)
[2016-12-23] MEDS: INSULIN ASPART SUPPLEMENTAL SCALE SQ SCH ×2 (06:33→13:29)
[2016-12-23] MEDS ORDERED: ISOSORBIDE MONONITRATE 60 MG TAB PO SCH (07:00)
[2016-12-23 07:33] VITALS: O2SAT 96
[2016-12-23 08:09] VITALS: BP 195/89; PULSE 63; RESP 18; TEMP 97.8; O2SAT 96
[2016-12-23] MEDS: LOSARTAN 50 MG TAB PO SCH (08:31)
[2016-12-23] MEDS: CARVEDILOL 12.5 MG TAB PO SCH (08:31)
[2016-12-23] MEDS: ATORVASTATIN 80 MG TAB PO SCH (08:32)
[2016-12-23] MEDS: CLOPIDOGREL 75 MG TAB PO SCH (08:32)
[2016-12-23] MEDS: DOXAZOSIN MESYLATE 2 MG TAB PO SCH (08:32)
[2016-12-23] MEDS: clonazePAM 1 MG TAB PO SCH (08:32)
[2016-12-23] MEDS: GABAPENTIN 400 MG CAP PO SCH ×2 (08:32→13:29)
[2016-12-23] MEDS: ASPIRIN 81 MG CHEW TAB CHEW SCH (08:32)
[2016-12-23] MEDS: ORPHENADRINE CITRATE 100 MG SUSTAINED RELEASE TAB PO SCH (08:32)
[2016-12-23] MEDS: INSULIN DETEMIR 100 UNITS/ML VIAL SQ SCH (08:34)
--- NOTE | 2016-12-23 08:52 | HHI.PR ---
Subjective Remarks Follow up for chest pain, elevated troponin, uncontrolled hypertension. The patient complains of a mild headache today, requesting tylenol. He also reports his pain medications are making him constipated and he hasn't had a BM in 1 week. He denies any chest pain today. Blood pressure still uncontrolled, most recently BP 195/89. His blood sugar also uncontrolled, 308 this morning. He also complains of his chronic back pain, no acute worsening. Otherwise the patient has no other medical complaints. Objective Vitals Vital Signs Date Time Temp Pulse Resp B/P Pulse Ox O2 Delivery O2 Flow Rate FiO2 12/23/16 08:09 97.8 63 18 195/89 96 12/23/16 07:33 96 21 12/23/16 06:15 16 12/23/16 04:54 97.6 78 20 187/84 93 12/23/16 01:30 16 12/22/16 23:42 98.4 73 16 151/70 94 12/22/16 19:27 97.3 58 20 176/89 96 12/22/16 15:15 168/72 12/22/16 11:18 98.0 61 20 162/79 93 12/22/16 08:47 98 I/O 12/22/16 12/22/16 12/22/16 12/23/16 12/23/16 12/23/16 07:00 15:00 23:00 07:00 15:00 23:00 Intake Total 620 ml 450 ml 200 ml Balance 620 ml 450 ml 200 ml Intake Oral 620 ml 450 ml 200 ml # Voids 4 Result Diagram: 12/23/16 0449 12/23/16 0449 Imaging Last Impressions Chest X-Ray 12/22/16 0231 Signed Impressions: Service Date/Time: December 02:46 - CONCLUSION: Normal examination. Xander Mcwilliams MD Head CT 12/22/16 0000 Signed Impressions: Service Date/Time: December 02:49 - CONCLUSION: Normal examination for an acute process. Stable bilateral lacunar strokes unchanged. Xander Mcwilliams MD Objective Remarks GENERAL: Well-nourished, well-developed male patient in [facility]. SKIN: Warm and dry. No rash. HEENT: Normocephalic. Atraumatic.Pupils equal and round. Mucous membranes pink and moist. NECK: Supple. Trachea midline. CARDIOVASCULAR: Regular rate and rhythm. S1, S2 noted. No murmur appreciated. RESPIRATORY: No accessory muscle use. Clear to auscultation. Breath sounds equal bilaterally. GASTROINTESTINAL: Abdomen soft, non-tender, nondistended. Normoactive bowel sounds x4. MUSCULOSKELETAL: No obvious deformities. Trace bilateral lower extremity pitting edema. Old surgical scar LLE. NEUROLOGICAL: Awake and alert. No obvious cranial nerve deficits. Motor grossly within normal limits. 5/5 muscle strength in bilateral upper and lower extremities. Normal speech. PSYCHIATRIC: Appropriate mood and affect; insight and judgment normal. Medications and IVs Current Medications Medications (Trade) Dose Ordered Sig/Conchita Route Start Time Stop Time Status Last Admin (NS Flush) 2 ml UNSCH PRN IVF 12/22/16 02:45 (Morphine Inj) 2 mg Q4H PRN IV PUSH 12/22/16 05:15 12/23/16 05:28 (Nitrostat Sl) 0.4 mg Q5M PRN SL 12/22/16 05:30 (Heparin Inj) 5,000 units Q8H SQ 12/22/16 06:00 12/23/16 05:09 (Aspirin Chew) 81 mg DAILY CHEW 12/22/16 09:00 12/23/16 08:32 (Lipitor) 80 mg DAILY PO 12/22/16 09:00 12/23/16 08:32 (Coreg) 25 mg BID PO 12/22/16 09:00 12/23/16 08:31 (Plavix) 75 mg DAILY PO 12/22/16 09:00 12/23/16 08:32 (Cardura) 2 mg DAILY PO 12/22/16 09:00 12/23/16 08:32 (Imdur) 60 mg DAILY@07 PO 12/23/16 07:00 12/23/16 05:08 (Cozaar) 100 mg DAILY PO 12/22/16 09:00 12/23/16 08:31 (D50w (Vial) Inj) 50 ml UNSCH PRN IV 12/22/16 10:45 (Glucagon Inj) 1 mg UNSCH PRN OTHER 12/22/16 10:45 (KlonoPIN) 2 mg BID PO 12/22/16 21:00 12/23/16 08:32 (Neurontin) 800 mg TID PO 12/22/16 13:00 12/23/16 08:32 (Hydrodiuril) 50 mg DAILY PO 12/23/16 09:00 12/23/16 08:32 ([place] 10-325 Mg) 1 tab Q4H PRN PO 12/22/16 11:00 12/22/16 23:13 (Levemir Inj) 60 units BID SQ 12/22/16 21:00 12/23/16 08:34 (Norflex Cr) 100 mg BID PO 12/22/16 21:00 12/23/16 08:32 (KCl) 20 meq DAILY PO 12/23/16 09:00 12/23/16 08:31 (Ambien) 10 mg HS PRN PO 12/22/16 11:00 12/22/16 23:13 (Catapres) 0.1 mg Q6H PRN PO 12/22/16 11:00 (Apresoline) 50 mg Q8HR PO 12/23/16 14:00 (Procardia Xl) 60 mg DAILY PO 12/23/16 09:00 UNV A/P Problem List: (1) CAD (coronary artery disease) ICD Code: I25.10 Status: Chronic (2) Chest pain ICD Code: R07.9 Status: Acute Assessment and Plan 61-year-old male with a history of coronary artery disease admitted with chest pain. Chest pain, Elevated Troponins: Need to rule out ACS. Troponins elevated but flat at 0.07 x4, suspect secondary to uncontrolled HTN and CKD. EKG with nonspecific ST-T changes. -Continue aspirin, BB, ARB -Nitro and IV morphine prn chest pain, O2 as needed -monitor on telemetry -Cardiology consulted, recommends medical management, and BP control Hypertensive urgency secondary to Accelerated hypertension: BP 215/104 upon arrival. Patient reports compliance with medications. Suspect hypertensive urgency contributory to chest pain. -Continued patient's Norvasc 10mg, Losartan 100mg, HCTZ 50mg, Coreg 25mg bid -Added Hydralazine, increased dose to 50mg q6h -Clonidine prn -Monitor BP, adjust antihypertensives as needed -Discussed extensively with Dr. Murdock and the patient, recommends increasing hydralazine dosing to q6h, patient verbalizes he will be able to comply with this regimen; also discussed concern for patient being on Losartan with allergy to ACEi/enalapril with Angioedema; Patient has been on Losartan for over a year, will not plan to change at this time, however strongly recommended patient discuss with PCP Dr. Harris and see a outdoor landscape architect. Diabetes mellitus: uncontrolled, BG >300 today -Monitor Accu-cheks, cover with Insulin sliding scale -diabetic diet -Continue patient's long acting insulin, Levemir 60u bid Sickle cell trait, Anemia (mild) -Unlikely contributory CKD, stage II: likely contributing to elevated troponins -renal function at baseline -monitor BMP -avoid nephrotoxins Constipation: patient reports no BM in 1 week. Secondary to opiates. -give lactulose x1 now -start on Sobeida-Colace 2tabs po bid -monitor for BM DVT prophylaxis: Heparin Discharge Planning Possible discharge today if BP and blood glucose better controlled. Also needs to have BM prior to discharge. 1645hrs: Patient's afternoon blood sugar over 300, ordered IV to be replaced, give 10u IV regular insulin and IVF bolus now. The patient then asks the RN to have IV morphine since he has IV access now. Informed RN patient will need to try his po [place] 10mg prior to receiving IV morphine. The patient then tells the nurse "well just remove the IV then, I'm going home since I can take my pain med at home". The patient is awake, alert, oriented x4. He understands he will be signing out AGAINST MEDICAL ADVICE as it is unsafe to medically clear the patient for discharge with blood glucose over 300 and elevated blood pressure. I did provide patient with new prescription for Hydralazine 50mg q6h. Discharge patient AGAINST MEDICAL ADVICE Condition on discharge: Stable Heart Healthy/Diabetic Diet as tolerated Ad Edilia activity Rx written: hydralazine 50mg po q6h Follow-up with primary care physician Dr. Harris within 2-3 days Berta Siu PA-C Dec 23, 2016 08:52
[2016-12-23] MEDS ORDERED: NIFEdipine 60 MG SUSTAINED RELEASE TAB PO SCH (09:00)
[2016-12-23] MEDS ORDERED: POTASSIUM CHLORIDE 20 MEQ CONTROLLED RELEASE TAB PO SCH (09:00)
[2016-12-23] MEDS ORDERED: DOCUSATE SODIUM 50 MG/SENNA 8.6 MG TAB PO SCH (09:00)
[2016-12-23] MEDS ORDERED: HYDROCHLOROTHIAZIDE 50 MG TAB PO SCH (09:00)
[2016-12-23] MEDS ORDERED: LACTULOSE SYRUP 20 GM/30 ML CUP PO ONE (09:15)
--- NOTE | 2016-12-23 09:30 | PD.CARD.PN ---
Subjective Subjective Remarks PT without complaints Objective Medications Current Medications Medications (Trade) Dose Ordered Sig/Conchita Route Start Time Stop Time Status Last Admin (NS Flush) 2 ml UNSCH PRN IVF 12/22/16 02:45 (Morphine Inj) 2 mg Q4H PRN IV PUSH 12/22/16 05:15 12/23/16 05:28 (Nitrostat Sl) 0.4 mg Q5M PRN SL 12/22/16 05:30 (Heparin Inj) 5,000 units Q8H SQ 12/22/16 06:00 12/23/16 05:09 (Aspirin Chew) 81 mg DAILY CHEW 12/22/16 09:00 12/23/16 08:32 (Lipitor) 80 mg DAILY PO 12/22/16 09:00 12/23/16 08:32 (Coreg) 25 mg BID PO 12/22/16 09:00 12/23/16 08:31 (Plavix) 75 mg DAILY PO 12/22/16 09:00 12/23/16 08:32 (Cardura) 2 mg DAILY PO 12/22/16 09:00 12/23/16 08:32 (Imdur) 60 mg DAILY@07 PO 12/23/16 07:00 12/23/16 05:08 (Cozaar) 100 mg DAILY PO 12/22/16 09:00 12/23/16 08:31 (D50w (Vial) Inj) 50 ml UNSCH PRN IV 12/22/16 10:45 (Glucagon Inj) 1 mg UNSCH PRN OTHER 12/22/16 10:45 (KlonoPIN) 2 mg BID PO 12/22/16 21:00 12/23/16 08:32 (Neurontin) 800 mg TID PO 12/22/16 13:00 12/23/16 08:32 (Hydrodiuril) 50 mg DAILY PO 12/23/16 09:00 12/23/16 08:32 ([place] 10-325 Mg) 1 tab Q4H PRN PO 12/22/16 11:00 12/22/16 23:13 (Levemir Inj) 60 units BID SQ 12/22/16 21:00 12/23/16 08:34 (Norflex Cr) 100 mg BID PO 12/22/16 21:00 12/23/16 08:32 (KCl) 20 meq DAILY PO 12/23/16 09:00 12/23/16 08:31 (Ambien) 10 mg HS PRN PO 12/22/16 11:00 12/22/16 23:13 (Catapres) 0.1 mg Q6H PRN PO 12/22/16 11:00 (Sobeida-Colace) 2 tab BID PO 12/23/16 09:00 (Apresoline) 50 mg Q6H PO 12/23/16 14:00 UNV (Norvasc) 10 mg DAILY PO 12/24/16 09:00 UNV Vital Signs / I&O Vital Signs Date Time Temp Pulse Resp B/P Pulse Ox O2 Delivery O2 Flow Rate FiO2 12/23/16 08:09 97.8 63 18 195/89 96 12/23/16 07:33 96 21 12/23/16 06:15 16 12/23/16 04:54 97.6 78 20 187/84 93 12/23/16 01:30 16 12/22/16 23:42 98.4 73 16 151/70 94 12/22/16 19:27 97.3 58 20 176/89 96 12/22/16 15:15 168/72 12/22/16 11:18 98.0 61 20 162/79 93 I/O 12/22/16 12/22/16 12/22/16 12/23/16 12/23/16 12/23/16 07:00 15:00 23:00 07:00 15:00 23:00 Intake Total 620 ml 450 ml 200 ml Balance 620 ml 450 ml 200 ml Intake Oral 620 ml 450 ml 200 ml # Voids 4 Physical Exam GENERAL: Well developed, well nourished. No acute distress. HEENT: Jugular venous pressure is normal. CHEST: Lungs clear to auscultation bilaterally. Unlabored respiratory effort. CARDIAC: Regular rate and rhythm without S3, S4, or murmur. ABDOMEN: Soft, nontender, no hepatosplenomegaly. Bowel sounds present. EXTREMITIES: No clubbing, cyanosis, or edema. Laboratory Laboratory Tests Test 12/22/16 12/22/16 12/23/16 10:43 17:22 04:49 Total Creatine Kinase 345 U/L 349 U/L Creatine Kinase MB 2.6 NG/ML 3.4 NG/ML Creatine Kinase MB % 0.8 % 1.0 % Troponin I 0.07 NG/ML 0.07 NG/ML Triglycerides Level 224 MG/DL Cholesterol Level 116 MG/DL LDL Cholesterol 38 MG/DL HDL Cholesterol 33.5 MG/DL Cholesterol/HDL Ratio 3.46 RATIO White Blood Count 4.4 TH/MM3 Red Blood Count 4.34 MIL/MM3 Hemoglobin 11.7 GM/DL Hematocrit 33.9 % Mean Corpuscular Volume 78.2 FL Mean Corpuscular Hemoglobin 27.0 PG Mean Corpuscular Hemoglobin 34.6 % Concent Red Cell Distribution Width 17.4 % Platelet Count 151 TH/MM3 Mean Platelet Volume 8.7 FL Neutrophils (%) (Auto) 58.3 % Lymphocytes (%) (Auto) 27.2 % Monocytes (%) (Auto) 9.5 % Eosinophils (%) (Auto) 4.2 % Basophils (%) (Auto) 0.8 % Neutrophils # (Auto) 2.6 TH/MM3 Lymphocytes # (Auto) 1.2 TH/MM3 Monocytes # (Auto) 0.4 TH/MM3 Eosinophils # (Auto) 0.2 TH/MM3 Basophils # (Auto) 0.0 TH/MM3 CBC Comment DIFF FINAL Differential Comment Sodium Level 141 MEQ/L Potassium Level 4.4 MEQ/L Chloride Level 107 MEQ/L Carbon Dioxide Level 27.6 MEQ/L Anion Gap 6 MEQ/L Blood Urea Nitrogen 20 MG/DL Creatinine 1.39 MG/DL Estimat Glomerular Filtration 63 ML/MIN Rate Random Glucose 308 MG/DL Calcium Level 8.3 MG/DL Assessment and Plan Assessment and Plan 1. Chest pain: The patient had been asymptomatic until he had difficulties controlling his blood pressure. His troponin is elevated, felt secondary to uncontrolled hypertension. I did discuss ischemia evaluation versus medical management with the patient. At this point he wishes medical management. This is reasonable as we both feel it is most likely secondary to his hypertension. 12/23 - resolved with BP control 2. Hypertension: better with hydralazine, agree with Q 6 dosing -pt is on losartan and has a history angioedema with DAWIT; => PCP to consider renal consult as OP to evaluate and/or take off losartan once BP stabilizes 3. Diabetes: This will be managed by the primary team. 4. Renal insufficiency. 5. NSTEMI- secondary to HTN and CKD reasonable for d/c home Betsy Murdock MD Dec 23, 2016 09:30
[2016-12-23 10:33] VITALS: BP 152/70; PULSE 60
[2016-12-23] MEDS ORDERED: hydrALAZINE HCL 25 MG TAB PO SCH (14:00)
[2016-12-23] MEDS ORDERED: hydrALAZINE HCL 50 MG TAB PO SCH (14:00)
[2016-12-23 14:16] VITALS: PULSE 65
[2016-12-23 15:55] VITALS: BP 189/86; PULSE 69; RESP 20; O2SAT 96
[2016-12-23] MEDS ORDERED: SODIUM CHLORID 0.9% 500 ML INJ 500 ML IV ONE (16:00)
[2016-12-23] MEDS ORDERED: INSULIN HUMAN REGULAR 1,000 UNITS/10 ML VIAL IV PUSH ONE (16:00)
[2016-12-23] MEDS ORDERED: HYDR-3800 PO (16:37)
[2016-12-24] MEDS ORDERED: CLON0.2T PO (00:27)
--- NOTE | 2016-12-25 10:03 | EKG ---
Date Performed: 12/23/2016 Time Performed: 19:33:40 PTAGE: 61 years EKG: Sinus rhythm NORMAL ECG PREVIOUS TRACING : 12/22/2016 05.38 DOCTOR: Xander Dale Interpretating Date/Time 12/25/2016 09:50:49
== END 2016-12-23 16:54 | disposition left against medical advice (07) ==
LOC: NEPC 01:50 → NEDA 04:22 → NEPGCP 06:23
PROVIDERS: ADMIT Internal Medicine; ATTEND Internal Medicine
DX: I21.4 Non-ST elevation (NSTEMI) myocardial infarction (principal); I25.10 Atherosclerotic heart disease of native coronary artery without angina pectoris; I12.9 Hypertensive chronic kidney disease with stage 1 through stage 4 chronic kidney disease, or unspecified chronic kidney disease; N18.2 Chronic kidney disease, stage 2 (mild); K59.00 Constipation, unspecified; E11.22 Type 2 diabetes mellitus with diabetic chronic kidney disease; I16.0 Hypertensive urgency; Z95.828 Presence of other vascular implants and grafts; E11.65 Type 2 diabetes mellitus with hyperglycemia; D57.3 Sickle-cell trait; E11.51 Type 2 diabetes mellitus with diabetic peripheral angiopathy without gangrene; E78.5 Hyperlipidemia, unspecified; E78.00 Pure hypercholesterolemia, unspecified; Z88.8 Allergy status to other drugs, medicaments and biological substances; Z86.718 Personal history of other venous thrombosis and embolism; Z95.5 Presence of coronary angioplasty implant and graft; Z96.642 Presence of left artificial hip joint; Z88.5 Allergy status to narcotic agent; Z87.891 Personal history of nicotine dependence; Z86.73 Personal history of transient ischemic attack (TIA), and cerebral infarction without residual deficits; Z79.02 Long term (current) use of antithrombotics/antiplatelets; Z79.82 Long term (current) use of aspirin; Z79.4 Long term (current) use of insulin
CPT/HCPCS: 70450; 71010; 80048; 80061; 82550; 82552; 82948; 83735; 84484; 85025; 85610; 85730; 93005; 96361; 96372; 96374; 96375; 96376; 99285; G0378; J0360; J1644; J1815; J2270; J7030; J7040

== ENCOUNTER 2016-12-23 19:09 | Observation (INO) | payer OTHER, MEDICAID ==
[2016-12-23] VITALS (8 sets, daily range): BP systolic 176–224; BP diastolic 76–100; PULSE 64–76; RESP 16–18; TEMP 98.7; O2SAT 92–99
[~2016-12-23 19:09] MED LIST changes: +APIX5TAB PO; +HYDR-3800 PO; -HYDR50TA15 PO; +KLON2TAB PO; +ZETI10TA5 PO; +[UNRECOGNIZED DRUG - CODE] T-DERMAL
--- NOTE | 2016-12-23 19:51 | PD ---
HPI Chief Complaint: Chest Pain Time Seen by Provider: 19:49 Travel History International Travel<30 days: No Contact w/Intl Traveler<30days: No Traveled to known affect area: No History of Present Illness HPI Patient was back to the emergency department after reportedly signing out AMA from the hospital earlier today for continued chest pain. Patient reports pain is pressure-like in nature substernally without radiation. Patient denies any associated diaphoresis, shortness of breath, nausea, vomiting, numbness or tingling anywhere. Patient states pain got worse when he was trying to evaluate car that his family had was broken down which is resulting left AMA. Patient denies taking anything for this prior coming back to the emergency department. Patient states that he left without any new prescriptions and was supposed to be given prescription for additional blood pressure medicine. PFSH Past Medical History Hx Anticoagulant Therapy: Yes AAA: Yes (JUL 2011/ ) Anemia: Yes Arthritis: No Asthma: No Autoimmune Disease: No Blood Disorders: Yes (SICKLE CELL TRAIT) Anxiety: No Depression: No Heart Rhythm Problems: Yes Cancer: No Cardiovascular Problems: Yes High Cholesterol: No Chemotherapy: No Chest Pain: Yes Congestive Heart Failure: No COPD: No Cerebrovascular Accident: Yes Coronary Artery Disease: Yes Diabetes: No Diminished Hearing: No Deep Vein Thrombosis: Yes (LT LEG) Endocrine: No GERD: No Glaucoma: No Genitourinary: No Headaches: No Hepatitis: No Hiatal Hernia: No Heparin Induced Thrombocytopen: No Hypertension: Yes Immune Disorder: No Implanted Vascular Access Dvce: Yes (RIGHT INSULIN PUMP removed) Kidney Stones: No Musculoskeletal: No Neurologic: No Psychiatric: No Reproductive: No Respiratory: No Immunizations Current: Yes Migraines: No Myocardial Infarction: No Pancreatitis: Yes Radiation Therapy: No Renal Failure: No Seizures: No Sickle Cell Disease: Yes (TRAIT) Sleep Apnea: No Thyroid Disease: No Ulcer: No PNEUMOCCOCAL Vaccine (Year): 3 Past Surgical History Abdominal Aneurysm Repair: Yes (2012) Abdominal Surgery: Yes AICD: No Appendectomy: No Arteriovenous Shunt: No Body Medical Devices: STENTS X 4 Cardiac Surgery: Yes (stent placement recently ) Cholecystectomy: Yes Coronary Artery Bypass Graft: No Coronary Stent: Yes (2009 X 2, 2010 X2) Ear Surgery: No Endocrine Surgery: No Eye Surgery: No Genitourinary Surgery: No Gynecologic Surgery: No Insulin Pump: Yes (removed) Joint Replacement: Yes (left hip) Neurologic Surgery: No Oral Surgery: No Pacemaker: No Thoracic Surgery: No Other Surgery: Yes (Stent placement x 2 ) Social History Alcohol Use: No Tobacco Use: No (QUIT 2005) Substance Use: Yes (COCAINE ) Allergies-Medications (Allergen,Severity, Reaction): Coded Allergies: DAWIT Inhibitors (Verified Allergy, Severe, ANGIOEDEMA, 12/23/16) Vasotec (Verified Allergy, Severe, 12/23/16) ANGIOEDEMA Clonidine (Verified Allergy, Mild, DRY MOUTH, 12/23/16) Dilaudid (Verified Adverse Reaction, Intermediate, ITCHING, 12/23/16) Reported Meds & Prescriptions Reported Meds & Active Scripts Active Hydralazine HCl 50 Mg Tablet 50 Mg PO Q6H Cardura (Doxazosin Mesylate) 2 Mg Tab 2 Mg PO DAILY Norvasc (Amlodipine Besylate) 10 Mg Tab 10 Mg PO DAILY Isosorbide Mononitrate ER (Isosorbide Mononitrate) 60 Mg Tab 60 Mg PO DAILY@07 Cozaar (Losartan Potassium) 50 Mg Tab 100 Mg PO DAILY Plavix (Clopidogrel Bisulfate) 75 Mg Tab 75 Mg PO DAILY Lipitor (Atorvastatin Calcium) 40 Mg Tab 80 Mg PO DAILY Reported Eliquis (Apixaban) 5 Mg Tab 5 Mg PO BID Zetia (Ezetimibe) 10 Mg Tab 10 Mg PO DAILY Neupro Patch 24 HR (Rotigotine Patch 24 HR) 3 Mg/24 Hr Patch 3 Mg T-DERMAL DAILY Klonopin (Clonazepam) 2 Mg Tab 2 Mg PO BID Aspirin 81 Mg Chew 81 Mg CHEW DAILY Lantus Inj (Insulin Glargine) 1,000 Unit/10 Ml Vial 60 Units SQ BID Orphenadrine ER 12 HR (Orphenadrine Citrate) 100 Mg Tab 100 Mg PO BID Ambien (Zolpidem Tartrate) 10 Mg Tab 10 Mg PO HS PRN Novolin R Inj (Insulin Human Regular) 1,000 Unit/10 Ml Vial 0 SQ TIDACHS Sliding Scale As Directed. Nitroglycerin SL (Nitroglycerin) 0.4 Mg Subl 0.4 Mg SL DIRECTED PRN ONE TABLET UNDER THE TONGUE NEEDED FOR CHEST PAIN, MAY REPEAT EVERY FIVE MINUTES FOR A TOTAL OF 3 DOSES OR CALL 911 IF NO RELIEF Lortab (Hydrocodone-Acetaminophen) 10-325 Mg Tab 1 Tab PO Q4H PRN K-Tab (Potassium Chloride) 20 Meq Tab 20 Meq PO DAILY Hydrochlorothiazide 50 Mg Tab 50 Mg PO DAILY Coreg (Carvedilol) 25 Mg Tab 25 Mg PO BID Gabapentin 800 Mg Tab 800 Mg PO TID Review of Systems Except as stated in HPI: all other systems reviewed are Neg Physical Exam Narrative GENERAL: Well-developed, overly nourished, in no acute distress, and non-ill appearing. SKIN: Focused skin assessment warm and dry. HEAD: Atraumatic. Normocephalic. EYES: Pupils equal and round. EOMI. No scleral icterus. No injection or drainage. ENT: No nasal bleeding or discharge. Mucous membranes pink and moist. NECK: Trachea midline. Supple. No nuclear rigidity. CARDIOVASCULAR: Regular rate and rhythm. No murmur appreciated. RESPIRATORY: No accessory muscle use. No respiratory distress. Clear to auscultation. Breath sounds equal bilaterally. MUSCULOSKELETAL: No obvious deformities. No clubbing. No cyanosis. No edema. Full range of motion. NEUROLOGICAL: Awake and alert. No obvious cranial nerve deficits. Motor grossly within normal limits. Normal speech. PSYCHIATRIC: Appropriate mood and affect; insight and judgment normal. Data Data Last Documented VS Vital Signs Date Time Temp Pulse Resp B/P Pulse Ox O2 Delivery O2 Flow Rate FiO2 12/23/16 20:16 75 16 180/84 97 Nasal Cannula 2 12/23/16 19:12 98.7 Orders Basic Metabolic Panel (Bmp) (12/23/16 19:46) Ckmb (Isoenzyme) Profile (12/23/16 19:46) Complete Blood Count With Diff (12/23/16 19:46) Magnesium (Mg) (12/23/16 19:46) Prothrombin Time / Inr (Pt) (12/23/16 19:46) Act Partial Throm Time (Ptt) (12/23/16 19:46) Troponin I (12/23/16 19:46) Ecg Monitoring (12/23/16 19:46) Bilateral Bp Monitoring (12/23/16 19:46) Iv Access Insert/Monitor (12/23/16 19:46) Oximetry (12/23/16 19:46) Oxygen Administration (12/23/16 19:46) Aspirin Chew (Aspirin Chew) (12/23/16 20:00) Sodium Chloride 0.9% Flush (Ns Flush) (12/23/16 20:00) Nitroglycerin Sl (Nitrostat Sl) (12/23/16 20:00) Drug Screen, Random Urine (12/23/16 19:46) CKMB (12/23/16 20:05) CKMB% (12/23/16 20:05) Acetaminophen (Tylenol) (12/23/16 21:00) Place In Observation (12/23/16 ) Vital Signs (Adult) Q4H (12/23/16 21:10) Activity Oob Ad Edilia (12/23/16 21:10) Press Set Up Person / Telemetry .CONTINUOUS (12/23/16 21:10) Diet Heart Healthy (12/24/16 Breakfast) Sodium Chloride 0.9% Flush (Ns Flush) (12/23/16 21:15) Sodium Chloride 0.9% Flush (Ns Flush) (12/24/16 09:00) Ondansetron Inj (Zofran Inj) (12/23/16 21:15) Comprehensive Metabolic Panel (12/24/16 08:00) Complete Blood Count With Diff (12/24/16 08:00) Troponin I (12/24/16 02:00) Troponin I (12/24/16 08:00) Scd Bilateral/Knee High KENNEDI.BID (12/23/16 21:10) Amish Bilateral/Knee High KENNEDI.QSHIFT (12/23/16 21:10) Acetaminophen (Tylenol) (12/23/16 21:15) Morphine Inj (Morphine Inj) (12/23/16 21:15) Oxycodone (Roxicodone) (12/23/16 21:15) Docusate Sodium-Senna (Sobeida-Colace) (12/24/16 09:00) Magnesium Hydroxide Liq (Milk Of Magnesi (12/23/16 21:15) Sennosides (Senokot) (12/23/16 21:15) Bisacodyl Supp (Dulcolax Supp) (12/23/16 21:15) Lactulose Liq (Lactulose Liq) (12/23/16 21:15) Aspirin Chew (Aspirin Chew) (12/24/16 09:00) Pravastatin (Pravachol) (12/24/16 21:00) Metoprolol Tartrate (Lopressor) (12/23/16 21:15) Bedside Glucose KENNEDI.AC&HS (12/23/16 21:17) Blood Glucose Goal (Criteria) (12/23/16 21:17) Hypoglycemia 70 Mg/Dl Or < (12/23/16 21:17) Notify Dr: Other (12/23/16 21:17) Dextrose 50% In Gio (Vial) Inj (D50w (Vi (12/23/16 21:30) Glucagon Inj (Glucagon Inj) (12/23/16 21:30) Insulin Aspart Supplemtl Scale (Novolog (12/24/16 07:00) Admit Order (Ed Use Only) (12/23/16 21:19) Labs Laboratory Tests Test 12/23/16 12/23/16 20:05 20:15 White Blood Count 4.0 TH/MM3 Red Blood Count 4.25 MIL/MM3 Hemoglobin 11.0 GM/DL Hematocrit 33.3 % Mean Corpuscular Volume 78.3 FL Mean Corpuscular Hemoglobin 26.0 PG Mean Corpuscular Hemoglobin 33.2 % Concent Red Cell Distribution Width 17.7 % Platelet Count 147 TH/MM3 Mean Platelet Volume 8.3 FL Neutrophils (%) (Auto) 58.9 % Lymphocytes (%) (Auto) 25.3 % Monocytes (%) (Auto) 10.4 % Eosinophils (%) (Auto) 4.5 % Basophils (%) (Auto) 0.9 % Neutrophils # (Auto) 2.4 TH/MM3 Lymphocytes # (Auto) 1.0 TH/MM3 Monocytes # (Auto) 0.4 TH/MM3 Eosinophils # (Auto) 0.2 TH/MM3 Basophils # (Auto) 0.0 TH/MM3 CBC Comment DIFF FINAL Differential Comment Prothrombin Time 10.5 SEC Prothromb Time International 1.0 RATIO Ratio Activated Partial 25.4 SEC Thromboplast Time Sodium Level 140 MEQ/L Potassium Level 4.3 MEQ/L Chloride Level 106 MEQ/L Carbon Dioxide Level 26.0 MEQ/L Anion Gap 8 MEQ/L Blood Urea Nitrogen 19 MG/DL Creatinine 1.41 MG/DL Estimat Glomerular Filtration 62 ML/MIN Rate Random Glucose 342 MG/DL Calcium Level 8.4 MG/DL Magnesium Level 2.1 MG/DL Total Creatine Kinase 245 U/L Creatine Kinase MB 2.5 NG/ML Troponin I 0.06 NG/ML Urine Opiates Screen NEG Urine Barbiturates Screen NEG Urine Amphetamines Screen NEG Urine Benzodiazepines Screen NEG Urine Cocaine Screen NEG Urine Cannabinoids Screen NEG MDM Medical Decision Making Medical Screen Exam Complete: Yes Emergency Medical Condition: Yes Interpretation(s) EKG reviewed by Dr. Wilcox shows normal sinus rhythm with ventricular rate of 75. No STEMI. Differential Diagnosis Unstable angina, electrolyte abnormality, acute coronary syndrome, medical noncompliance, other Narrative Course Patient was seen and examined. Initial laboratory studies were ordered. IV was established patient placed on a cardiac sonographer. Previous his medical records reviewed. Labs reviewed. Discussed patient with Dr. Wilcox, referencing patient readmitted for possible stress test in the morning. 2100 patient reassessed in no acute distress. Discussed all laboratory findings with patient. Patient is willing to be readmitted to the hospital for possible stress test as well as not one done previously. Patient requesting IV morphine for his chest pain. Patient remained stable throughout ED course. Physician Communication Physician Communication [phone] Hale, who is agreeable to re-admit the patient for possible stress test in the morning. Diagnosis Primary Impression: Chest pain Qualified Code: R07.9 - Chest pain, unspecified type Admitting Information Admitting Physician Requests: Observation Condition: Stable Tima Hawkins Dec 23, 2016 19:51
[2016-12-23] MEDS ORDERED: SODIUM CHLORIDE 0.9% FLUSH 10 ML FLUSH IVF PRN (20:00)
[2016-12-23] MEDS ORDERED: ASPIRIN 81 MG CHEW TAB PO ONE (20:00)
[2016-12-23] MEDS: NITROGLYCERIN 0.4 MG SL 25 TABS/BTL SL SCH ×3 (20:10→20:46)
[2016-12-23 20:26] LABS: AUTOMATED NEUTROPHIL # 2.4 TH/MM3 (1.8-7.7); BASOPHIL % 0.9 % (0.0-2.0); EOSINOPHIL # 0.2 TH/MM3 (0-0.4); EOSINOPHIL % 4.5 % (0.0-4.0); HEMATOCRIT 33.3 % (39.0-51.0); HEMO FLAGS DIFF FINAL; LYMPH % 25.3 % (9.0-44.0); MEAN CELL VOLUME 78.3 FL (80.0-100.0); MEAN CORPUSCULAR HGB CONC 33.2 % (32.0-36.0); MONO % 10.4 % (0.0-8.0); NEUT % 58.9 % (16.0-70.0); PLATELET COUNT 147 TH/MM3 (150-450); RED BLOOD COUNT 4.25 MIL/MM3 (4.50-5.90); RED CELL DISTRIBUTION WIDTH 17.7 % (11.6-17.2)
[2016-12-23 20:29] LABS: APTT (PATIENT) 25.4 SEC (24.3-30.1); PROTHROMBIN TIME - PATIENT 10.5 SEC (9.8-11.6)
[2016-12-23 20:40] LABS: ANION GAP 8 MEQ/L (5-15); BLOOD UREA NITROGEN 19 MG/DL (7-18); CHLORIDE 106 MEQ/L (98-107); GLOMERULAR FILTRATION RATE 62 ML/MIN (>89); MAGNESIUM 2.1 MG/DL (1.5-2.5); POTASSIUM 4.3 MEQ/L (3.5-5.1); SODIUM (NA) 140 MEQ/L (136-145)
[2016-12-23 20:41] LABS: AMPHETAMINE, URINE NEG (NEG); BARBITURATES, URINE NEG (NEG); COCAINE, URINE NEG (NEG)
[2016-12-23 20:50] LABS: CREATINE KINASE 245 U/L (39-308)
[2016-12-23] MEDS ORDERED: ACETAMINOPHEN 325 MG TAB PO ONE (21:00)
[2016-12-23 21:02] LABS: CKMB 2.5 NG/ML (0.5-3.6)
[2016-12-23] MEDS ORDERED: MAGNESIUM HYDROXIDE SUSP 30 ML CUP PO PRN (21:15)
[2016-12-23] MEDS ORDERED: ACETAMINOPHEN 325 MG TAB PO PRN (21:15)
[2016-12-23] MEDS ORDERED: SODIUM CHLORIDE 0.9% FLUSH 10 ML FLUSH IV FLUSH PRN (21:15)
[2016-12-23] MEDS ORDERED: METOPROLOL TARTRATE 25 MG TAB PO SCH (21:15)
[2016-12-23] MEDS ORDERED: LACTULOSE SYRUP 20 GM/30 ML CUP PO PRN (21:15)
[2016-12-23] MEDS ORDERED: ONDANSETRON HCL 4 MG/2 ML VIAL IVP PRN (21:15)
[2016-12-23] MEDS ORDERED: BISACODYL 10 MG SUPP RECTAL PRN (21:15)
[2016-12-23] MEDS ORDERED: SENNOSIDES 8.6 MG TAB PO PRN (21:15)
--- NOTE | 2016-12-23 21:17 | HHI.HP ---
[facility] Service [facility] Primary Care Physician Jhonathan Harris MD Admission Diagnosis Diagnoses: (1) Chest pain Diagnosis: Principal (2) HTN (hypertension) Diagnosis: Principal (3) Noncompliance Diagnosis: Principal (4) Renal insufficiency Diagnosis: Principal (5) DM (diabetes mellitus) Diagnosis: Principal Travel History International Travel<30 Days: No Contact w/Intl Traveler <30 Da: No Traveled to Known Affected Are: No History of Present Illness This is a 61-year-old male with a PMH of HTN, Sickle Cell Trait, Anemia, CAD, DM and h/o Cocaine Abuse who presented to the ER with complaints of substernal chest pain which has been ongoing for several days. Recent admit 12/22/16 for similar symptoms, troponin 0.07 at that time, s/p eval by Dr. Murdock, elevated troponin thought to be due to uncontrolled HTN w/ plans for medical management however pt LEFT AGAINST MEDICAL ADVICE as he was upset he wasn't getting Morphine IV per physician documentation. Pt was give prescription for Hydralazine per review of records, however reports he received none. Returns now w/ ongoing c/o chest pain. On arrival, BP 195/89, HR 63, O2 sat 96% on RA, Afebrile. CBC at baseline. Creatinine 1.41, previously 1.39 on 12/23/16, troponin 0.06. INR 1.0. Urine Drug Screen negative. CXR with no acute findings. Review of Systems Except as stated in HPI: all other systems reviewed are Neg ROS: 14 point review of systems otherwise negative. Past Family Social History Past Medical History PMH: HTN, Sickle Cell Trait, Anemia, CAD, DM and h/o Cocaine Abuse Past Surgical History PAST SURGICAL HISTORY: AAA Repair, Cardiac Stents, Insulin Pump with Removal, Left Hip Replacement Allergies: Coded Allergies: DAWIT Inhibitors (Verified Allergy, Severe, ANGIOEDEMA, 12/23/16) Vasotec (Verified Allergy, Severe, 12/23/16) ANGIOEDEMA Clonidine (Verified Allergy, Mild, DRY MOUTH, 12/23/16) Dilaudid (Verified Adverse Reaction, Intermediate, ITCHING, 12/23/16) Family History PAST FAMILY HISTORY: Reviewed. No h/o DM or CAD Social History PAST SOCIAL HISTORY: Negative for alcohol or tobacco. History of cocaine abuse , denies recent ingestion. Physical Exam Vital Signs Vital Signs Date Time Temp Pulse Resp B/P Pulse Ox O2 Delivery O2 Flow Rate FiO2 12/23/16 20:16 75 16 180/84 97 Nasal Cannula 2 12/23/16 20:09 98 Nasal Cannula 12/23/16 20:01 75 18 188/83 92 Room Air 2 12/23/16 19:12 98.7 76 18 194/91 96 Room Air Physical Exam PE: GENERAL: Middle-aged black male in no acute distress. HEENT: PERRLA, EOMI. No scleral icterus or conjunctival pallor. No lid lag or facial droop. CARDIOVASCULAR: Regular rate and rhythm. No obvious murmurs to auscultation. No chest tenderness to palpation. RESPIRATORY: No obvious rhonchi or wheezing. Clear to auscultation. Breath sounds equal bilaterally. GASTROINTESTINAL: Abdomen soft, non-tender, nondistended. BS normal. MUSCULOSKELETAL: Extremities without clubbing, cyanosis, or edema. No obvious deformities. NEUROLOGICAL: Awake, alert and oriented x4. No focal neurologic deficits. Moving both upper and lower extremities spontaneously. Laboratory Laboratory Tests Test 12/23/16 12/23/16 20:05 20:15 White Blood Count 4.0 Red Blood Count 4.25 Hemoglobin 11.0 Hematocrit 33.3 Mean Corpuscular Volume 78.3 Mean Corpuscular Hemoglobin 26.0 Mean Corpuscular Hemoglobin 33.2 Concent Red Cell Distribution Width 17.7 Platelet Count 147 Mean Platelet Volume 8.3 Neutrophils (%) (Auto) 58.9 Lymphocytes (%) (Auto) 25.3 Monocytes (%) (Auto) 10.4 Eosinophils (%) (Auto) 4.5 Basophils (%) (Auto) 0.9 Neutrophils # (Auto) 2.4 Lymphocytes # (Auto) 1.0 Monocytes # (Auto) 0.4 Eosinophils # (Auto) 0.2 Basophils # (Auto) 0.0 CBC Comment DIFF FINAL Differential Comment Prothrombin Time 10.5 Prothromb Time International 1.0 Ratio Activated Partial 25.4 Thromboplast Time Sodium Level 140 Potassium Level 4.3 Chloride Level 106 Carbon Dioxide Level 26.0 Anion Gap 8 Blood Urea Nitrogen 19 Creatinine 1.41 Estimat Glomerular Filtration 62 Rate Random Glucose 342 Calcium Level 8.4 Magnesium Level 2.1 Total Creatine Kinase 245 Creatine Kinase MB 2.5 Troponin I 0.06 Urine Opiates Screen NEG Urine Barbiturates Screen NEG Urine Amphetamines Screen NEG Urine Benzodiazepines Screen NEG Urine Cocaine Screen NEG Urine Cannabinoids Screen NEG Result Diagram: 12/23/16200412/23/162004 Assessment and Plan Problem List: (1) Chest pain ICD Code: R07.9 Status: Acute (2) HTN (hypertension) ICD Code: I10 Status: Acute (3) Renal insufficiency ICD Code: N28.9 Status: Acute (4) Noncompliance ICD Code: Z91.19 Status: Acute (5) DM (diabetes mellitus) ICD Code: E11.9 Status: Chronic Assessment and Plan A/P: 1. Chest Pain: c/o ongoing substernal chest pain, recent admit 12/22/16 for same , however pt LEFT AGAINST MEDICAL ADVICE. Trop 0.07 at that time, currently 0.06, no acute EKG changes. S/p eval by Dr. Murdock on last admit w/ plans for medical management, BP control. Will admit for Observation, telemetry, check serial cardiac enzymes. Consult Cardiology if enzymes trend upwards. Resume home medications, ASA, Statin, Coreg, Eliquis. 2. HTN: Uncontrolled. Largely due to non-compliance. On multiple antihypertensives, however non-compliant. BP on arrival, 195/99, HR 63, s/p Lopressor IV and Hydralazine IV, repeat BP 170-180's. Resume home medications, monitor BP. 3. Non-compliance: As above, pt non-compliant w/ treatment and follow-up, LEFT AGAINST MEDICAL ADVICE on recent admit. Urged importance of taking meds as directed and following up w/ PCP. Previously follows w/ Dr. Borges as outpatient, but also non-compliant. 4. DM: Sliding scale w/ Accu-Cheks. Resume home Insulin. Hgb A1c 9.4 on 08/11. 5. Renal Insufficiency: Chronic. Creatinine 1.42, previously 1.36 on 10/21/16. Will monitor, repeat labs in am 6. DVT Prophylaxis: On Eliquis 7. Social work for DC planning as needed. 8. Case discussed at length with ER physician. Problem Qualifiers (1) Chest pain: Qualified Code: R07.9 - Chest pain, unspecified type Analilia Hale MD Dec 23, 2016 21:17
[2016-12-23] MEDS ORDERED: DEXTROSE 50% IN WATER 50 ML VIAL(D50) IV PRN (21:30)
[2016-12-23] MEDS ORDERED: GLUCAGON 1 MG/ML VIAL OTHER PRN (21:30)
[2016-12-23] MEDS: MORPHINE SULFATE 4 MG/ML INJ IV PRN (21:49)
[2016-12-23] MEDS ORDERED: hydrALAZINE HCL 20 MG/ML VIAL IV PUSH ONE (23:15)
[2016-12-24] VITALS (10 sets, daily range): BP systolic 155–223; BP diastolic 69–105; PULSE 66–84; RESP 12–20; TEMP 97.8–98.4; O2SAT 90–98
[2016-12-24] MEDS ORDERED: CLON0.2T PO (00:27)
[2016-12-24] MEDS ORDERED: hydrALAZINE HCL 25 MG TAB PO PRN (00:45)
[2016-12-24] MEDS ORDERED: cloNIDine HCL 0.2 MG TAB PO ONE (00:45)
[2016-12-24] MEDS ORDERED: ZOLPIDEM TARTRATE 10 MG TAB PO PRN (02:30)
[2016-12-24] MEDS: MORPHINE SULFATE 4 MG/ML INJ IV PRN (03:17)
[2016-12-24] MEDS: hydrALAZINE HCL 50 MG TAB PO SCH ×4 (03:43→22:58)
[2016-12-24] MEDS: ISOSORBIDE MONONITRATE 60 MG TAB PO SCH (06:35)
[2016-12-24] MEDS ORDERED: INSULIN ASPART SUPPLEMENTAL SCALE SQ SCH (07:00)
[2016-12-24 07:52] LABS: BICARBONATE 27.1 MEQ/L (21.0-32.0); POTASSIUM 4.2 MEQ/L (3.5-5.1)
[2016-12-24] MEDS ORDERED: GABAPENTIN 400 MG CAP PO SCH (09:00)
[2016-12-24] MEDS ORDERED: ASPIRIN 81 MG CHEW TAB CHEW SCH (09:00)
[2016-12-24] MEDS ORDERED: INSULIN DETEMIR 100 UNITS/ML VIAL SQ SCH ×2 (09:00→21:00)
[2016-12-24] MEDS ORDERED: APIXABAN 5 MG TABLET PO SCH (09:00)
[2016-12-24] MEDS: SODIUM CHLORIDE 0.9% FLUSH 10 ML FLUSH IV FLUSH SCH ×2 (09:23→21:23)
[2016-12-24] MEDS: CARVEDILOL 12.5 MG TAB PO SCH ×2 (09:24→21:24)
[2016-12-24] MEDS: LOSARTAN 50 MG TAB PO SCH (09:24)
[2016-12-24] MEDS: ASPIRIN 81 MG CHEW TAB CHEW SCH (09:24)
[2016-12-24] MEDS: HYDROCHLOROTHIAZIDE 50 MG TAB PO SCH (09:25)
[2016-12-24] MEDS: DOCUSATE SODIUM 50 MG/SENNA 8.6 MG TAB PO SCH ×2 (09:25→21:23)
[2016-12-24] MEDS: CLOPIDOGREL 75 MG TAB PO SCH (09:25)
[2016-12-24] MEDS: clonazePAM 1 MG TAB PO SCH ×2 (09:26→21:23)
--- NOTE | 2016-12-24 09:37 | HHI.PR ---
Subjective Remarks Follow up for uncontrolled hypertension, hyperglycemia with uncontrolled diabetes, and chest pain. The patient denies any further chest pains today. He has no new medical complaints. He is resting comfortably in his bed. Blood pressure and blood sugar still elevated this morning prior to receiving morning medications. Objective Vitals Vital Signs Date Time Temp Pulse Resp B/P Pulse Ox O2 Delivery O2 Flow Rate FiO2 12/24/16 08:41 98.4 70 12 210/98 90 12/24/16 03:30 98.0 80 18 223/105 97 216/97 12/24/16 02:52 80 12/24/16 01:50 84 186/83 95 12/24/16 00:06 98.2 68 20 217/98 98 12/23/16 23:29 64 16 176/86 99 Nasal Cannula 2 12/23/16 22:49 68 18 190/76 98 Nasal Cannula 2 12/23/16 22:46 68 18 222/92 98 Nasal Cannula 2 12/23/16 22:16 65 18 204/97 97 Nasal Cannula 2 12/23/16 22:14 65 18 224/100 98 Nasal Cannula 2 12/23/16 20:16 75 16 180/84 97 Nasal Cannula 2 12/23/16 20:09 98 Nasal Cannula 12/23/16 20:01 75 18 188/83 92 Room Air 2 12/23/16 19:12 98.7 76 18 194/91 96 Room Air Result Diagram: 12/23/16200412/24/16 0648 A/P Problem List: (1) Chest pain ICD Code: R07.9 Status: Acute (2) HTN (hypertension) ICD Code: I10 Status: Acute (3) Renal insufficiency ICD Code: N28.9 Status: Acute (4) Noncompliance ICD Code: Z91.19 Status: Acute (5) DM (diabetes mellitus) ICD Code: E11.9 Status: Chronic Assessment and Plan 61-year-old male with: Chest Pain with hx of CAD: c/o ongoing substernal chest pain, recent admit for same, however pt LEFT AMA. Trop 0.07 at that time, currently 0.06, 0.07 , no acute EKG changes. S/p eval by Dr. Murdock on last admit w/ plans for medical management, BP control. Monitor on telemetry. Resume home medications, ASA, Plavix, Statin, Coreg, Eliquis. S/p IV morphine. Pain resolved. HTN: Uncontrolled. Largely due to non-compliance. On multiple antihypertensives, however non-compliant. BP on arrival, 195/99, HR 63, s/p Lopressor IV and Hydralazine IV, repeat BP 170-180's. Resume home medications including Losartan 100mg qd, Coreg 25mg bid, Norvasc 10mg qd, Losartan 100mg daily, and continue Hydralazine 50mg q6h as started during previous admission 12/23. Monitor BP. Of note, discussed with patient to talk with his PCP about discontinuing Losartan when BP controlled as he has allergy with angioedema with ACEi, patient verbalized understanding. Non-compliance: As above, pt non-compliant w/ treatment and follow-up, LEFT AGAINST MEDICAL ADVICE on recent admit. Urged importance of taking meds as directed and following up w/ PCP. Previously follows w/ Dr. Borges as outpatient, but also non-compliant. Uncontrolled DM with Hyperglycemia: Continue High Dose Sliding scale w/ Accu- Cheks. Resume home Insulin, levemir 60u bid. Hgb A1c 9.4 on 08/11/16, will repeat. Diabetic diet. Renal Insufficiency: Chronic. Creatinine 1.42, previously 1.36 on 10/21/16. Will monitor. Avoid nephrotoxins. Renal function at baseline. DVT Prophylaxis: On Eliquis Discharge Planning Hopefully discharge today if BP better controlled and blood sugar < 300. 1300hrs: Patient requesting IV morphine. Explained to RN no reason to give IV narcotics. Patient denied chest pain today. He has chronic back pain. The patient then asked for a shot of Norflex. Will restart patient's oral Norflex prn. Blood sugar still over 400, will give IV regular insulin and IV fluid bolus now. Of note, patient's brought him cookies earlier today, despite lecture from myself and RN regarding importance of diabetic diet. Blood pressure still in the 170s, will change Norvasc to Nifedipine XL 90mg. Problem Qualifiers (1) Chest pain: Qualified Code: R07.9 - Chest pain, unspecified type Berta Siu PA-C Dec 24, 2016 9:37 am
[2016-12-24] MEDS: APIXABAN 5 MG TABLET PO SCH ×2 (10:21→21:23)
[2016-12-24] MEDS: DOXAZOSIN MESYLATE 2 MG TAB PO SCH (10:21)
[2016-12-24] MEDS ORDERED: NIFEdipine 90 MG SUSTAINED RELEASE TAB PO ONE (13:00)
[2016-12-24] MEDS ORDERED: INSULIN HUMAN REGULAR 1,000 UNITS/10 ML VIAL IV PUSH ONE (13:00)
[2016-12-24] MEDS ORDERED: SODIUM CHLORID 0.9% 500 ML INJ 500 ML IV ONE (13:00)
[2016-12-24] MEDS: INSULIN ASPART SUPPLEMENTAL SCALE SQ SCH ×3 (13:00→22:57)
[2016-12-24] MEDS ORDERED: ORPHENADRINE CITRATE 100 MG SUSTAINED RELEASE TAB PO ONE (13:00)
[2016-12-24 13:24] LABS: AUTOMATED NEUTROPHIL # 3.4 TH/MM3 (1.8-7.7); BASOPHIL % 0.6 % (0.0-2.0); EOSINOPHIL # 0.2 TH/MM3 (0-0.4); EOSINOPHIL % 4.1 % (0.0-4.0); HEMO FLAGS DIFF FINAL; LYMPH % 17.8 % (9.0-44.0); LYMPHOCYTE # 0.9 TH/MM3 (1.0-4.8); MEAN CELL VOLUME 78.2 FL (80.0-100.0); MEAN CORPUSCULAR HEMOGLOBIN 25.6 PG (27.0-34.0); MEAN CORPUSCULAR HGB CONC 32.7 % (32.0-36.0); MONO % 8.6 % (0.0-8.0); NEUT % 68.9 % (16.0-70.0); PLATELET COUNT 154 TH/MM3 (150-450); RED BLOOD COUNT 4.48 MIL/MM3 (4.50-5.90); RED CELL DISTRIBUTION WIDTH 17.8 % (11.6-17.2); WHITE BLOOD COUNT 4.9 TH/MM3 (4.0-11.0)
[2016-12-24 14:08] LABS: ANION GAP 9 MEQ/L (5-15)
[2016-12-24 14:23] LABS: ALKALINE PHOSPHATASE 140 U/L (45-117); ALT (GPT) 28 U/L (12-78); AST (GOT) 11 U/L (15-37); BICARBONATE 27.1 MEQ/L (21.0-32.0); BLOOD UREA NITROGEN 18 MG/DL (7-18); CHLORIDE 103 MEQ/L (98-107); GLOMERULAR FILTRATION RATE 66 ML/MIN (>89); POTASSIUM 3.8 MEQ/L (3.5-5.1); SODIUM (NA) 139 MEQ/L (136-145); TOTAL BILIRUBIN ADULT 0.5 MG/DL (0.2-1.0)
[2016-12-24 15:01] LABS: HEMOGLOBIN A1a 0.8 %; HEMOGLOBIN A1b 0.6 %; HEMOGLOBIN Ao 47.8 %; HEMOGLOBIN F 1.4 %; HEMOGLOBIN LA1C 2.5 %; HEMOGLOBIN P3 3.6 %
[2016-12-24] MEDS ORDERED: ATORVASTATIN 40 MG TAB PO SCH (21:00)
[2016-12-24] MEDS ORDERED: PRAVASTATIN SOD 40 MG TAB PO SCH (21:00)
[2016-12-24] MEDS ORDERED: ORPHENADRINE CITRATE 100 MG SUSTAINED RELEASE TAB PO PRN (21:00)
[2016-12-24] MEDS: GABAPENTIN 300 MG CAP PO SCH (21:23)
[2016-12-25] MEDS ORDERED: INSULIN ASPART 1,000 UNITS/10 ML VIAL SQ ONE (01:30)
[2016-12-25 03:19] VITALS: BP 173/82; PULSE 73; RESP 20; TEMP 98.1; O2SAT 94
[2016-12-25] MEDS: hydrALAZINE HCL 50 MG TAB PO SCH (03:23)
[2016-12-25 03:40] VITALS: PULSE 59
[2016-12-25] MEDS: ISOSORBIDE MONONITRATE 60 MG TAB PO SCH (06:07)
[2016-12-25] MEDS: INSULIN ASPART SUPPLEMENTAL SCALE SQ SCH (06:07)
[2016-12-25 08:22] VITALS: BP 190/86; PULSE 70; RESP 20; TEMP 96.8; O2SAT 96
[2016-12-25 08:27] LABS: BICARBONATE 30.1 MEQ/L (21.0-32.0); POTASSIUM 3.7 MEQ/L (3.5-5.1)
[2016-12-25] MEDS ORDERED: INSULIN DETEMIR 100 UNITS/ML VIAL SQ SCH (09:00)
[2016-12-25] MEDS ORDERED: NIFEdipine 90 MG SUSTAINED RELEASE TAB PO SCH (09:00)
[2016-12-25] MEDS: CARVEDILOL 12.5 MG TAB PO SCH (09:03)
[2016-12-25] MEDS: APIXABAN 5 MG TABLET PO SCH (09:04)
[2016-12-25] MEDS: GABAPENTIN 300 MG CAP PO SCH (09:04)
[2016-12-25] MEDS: HYDROCHLOROTHIAZIDE 50 MG TAB PO SCH (09:04)
[2016-12-25] MEDS: DOCUSATE SODIUM 50 MG/SENNA 8.6 MG TAB PO SCH (09:04)
[2016-12-25] MEDS: LOSARTAN 50 MG TAB PO SCH (09:04)
[2016-12-25] MEDS: CLOPIDOGREL 75 MG TAB PO SCH (09:05)
[2016-12-25] MEDS: ASPIRIN 81 MG CHEW TAB CHEW SCH (09:05)
[2016-12-25] MEDS: clonazePAM 1 MG TAB PO SCH (09:05)
[2016-12-25] MEDS: DOXAZOSIN MESYLATE 2 MG TAB PO SCH (09:05)
[2016-12-25] MEDS: SODIUM CHLORIDE 0.9% FLUSH 10 ML FLUSH IV FLUSH SCH (09:06)
[2016-12-25] MEDS ORDERED: hydrALAZINE HCL 50 MG TAB PO ONE ×2 (09:15→09:30)
--- NOTE | 2016-12-25 10:11 | HHI.PR ---
Subjective Remarks Follow up for uncontrolled hypertension and diabetes. The patient denies any further episodes of chest pain. He now complains of a headache and again asks for a "shot" of morphine. Explained headache likely secondary to consistently elevated blood pressure and to try tylenol or oxycodone for the headache. Per RN , patient upset this morning that he is on diabetic diet and wants more food. Blood sugars improving however still elevated. Objective Vitals Vital Signs Date Time Temp Pulse Resp B/P Pulse Ox O2 Delivery O2 Flow Rate FiO2 12/25/16 08:22 96.8 70 20 190/86 96 12/25/16 03:40 12/25/16 03:19 98.1 73 20 173/82 94 12/24/16 23:29 98.1 76 18 155/69 94 12/24/16 20:00 82 12/24/16 19:28 98.3 82 20 182/88 94 12/24/16 15:38 97.8 66 16 180/74 96 12/24/16 12:29 98.4 69 14 172/85 92 12/24/16 12:01 18 I/O 12/24/16 12/24/16 12/24/16 12/25/16 12/25/16 12/25/16 07:00 15:00 23:00 07:00 15:00 23:00 Intake Total 240 ml 120 ml Balance 240 ml 120 ml Intake Oral 240 ml 120 ml # Voids 1 Result Diagram: 12/24/16 1248 12/25/16 0730 Objective Remarks GENERAL: Well-nourished, well-developed obese middle aged AA male patient in [facility]. SKIN: Warm and dry. No rash. HEENT: Normocephalic. Atraumatic.Pupils equal and round. Mucous membranes pink and moist. NECK: Supple. Trachea midline. CARDIOVASCULAR: Regular rate and rhythm. S1, S2 noted. No murmur appreciated. RESPIRATORY: No accessory muscle use. Clear to auscultation. Breath sounds equal bilaterally. GASTROINTESTINAL: Abdomen soft, non-tender, nondistended. Normoactive bowel sounds x4. MUSCULOSKELETAL: No obvious deformities. Left leg with chronic surgical scar. Bilateral ankles mildly edematous. NEUROLOGICAL: Awake and alert. No obvious cranial nerve deficits. Motor grossly within normal limits. Normal speech. Medications and IVs Current Medications Medications (Trade) Dose Ordered Sig/Conchita Route Start Time Stop Time Status Last Admin (NS Flush) 2 ml UNSCH PRN IV FLUSH 12/23/16 21:15 12/23/16 23:12 (NS Flush) 2 ml BID IV FLUSH 12/24/16 09:00 12/25/16 09:06 (Zofran Inj) 4 mg Q6H PRN IVP 12/23/16 21:15 (Tylenol) 650 mg Q6H PRN PO 12/23/16 21:15 12/25/16 02:49 (Roxicodone) 5 mg Q4H PRN PO 12/23/16 21:15 12/25/16 04:47 (Sobeida-Colace) 1 tab BID PO 12/24/16 09:00 12/25/16 09:04 (Milk Of Magnesia Liq) 30 ml Q12H PRN PO 12/23/16 21:15 (Senokot) 17.2 mg Q12H PRN PO 12/23/16 21:15 (Dulcolax Supp) 10 mg DAILY PRN RECTAL 12/23/16 21:15 (Lactulose Liq) 30 ml DAILY PRN PO 12/23/16 21:15 (D50w (Vial) Inj) 50 ml UNSCH PRN IV 12/23/16 21:30 (Glucagon Inj) 1 mg UNSCH PRN OTHER 12/23/16 21:30 (Aspirin Chew) 81 mg DAILY CHEW 12/24/16 09:00 12/25/16 09:05 (KlonoPIN) 2 mg BID PO 12/24/16 09:00 12/25/16 09:05 (Cardura) 2 mg DAILY PO 12/24/16 09:00 12/25/16 09:05 (Imdur) 60 mg DAILY@07 PO 12/24/16 07:00 12/25/16 06:07 (Cozaar) 100 mg DAILY PO 12/24/16 09:00 12/25/16 09:04 (Ambien) 10 mg HS PRN PO 12/24/16 02:30 (Lipitor) 80 mg HS PO 12/24/16 21:00 12/24/16 21:23 (Coreg) 25 mg BID PO 12/24/16 09:00 12/25/16 09:03 (Hydrodiuril) 50 mg DAILY PO 12/24/16 09:00 12/25/16 09:04 (Plavix) 75 mg DAILY PO 12/24/16 09:00 12/25/16 09:05 (Eliquis) 5 mg BID PO 12/24/16 10:00 12/25/16 09:04 (Neurontin) 600 mg BID PO 12/24/16 21:00 12/25/16 09:04 (Norflex Cr) 100 mg Q12HR PRN PO 12/24/16 21:00 (Procardia Xl) 90 mg DAILY PO 12/25/16 09:00 12/25/16 09:04 (Levemir Inj) 75 units BID SQ 12/25/16 09:00 12/25/16 09:03 (Apresoline) 100 mg Q8H PO 12/25/16 17:00 A/P Problem List: (1) Chest pain ICD Code: R07.9 Status: Acute (2) HTN (hypertension) ICD Code: I10 Status: Acute (3) Renal insufficiency ICD Code: N28.9 Status: Acute (4) Noncompliance ICD Code: Z91.19 Status: Acute (5) DM (diabetes mellitus) ICD Code: E11.9 Status: Chronic Assessment and Plan 61-year-old male with: Chest Pain with hx of CAD: c/o ongoing substernal chest pain, recent admit for same, however pt LEFT AMA. Trop 0.07 at that time, currently 0.06, 0.07 , no acute EKG changes. -S/p eval by Dr. Murdock on last admit w/ plans for medical management, BP control. -Monitor on telemetry. Resume home medications, -ASA, Plavix, Statin, Coreg, Eliquis. S/p IV morphine. -Chest Pain resolved. HTN: Uncontrolled. Largely due to non-compliance. On multiple antihypertensives, however non-compliant. BP on arrival, 195/99, HR 63, s/p Lopressor IV and Hydralazine IV, repeat BP 170-180's. -Resume home meds including Losartan 100mg qd, Coreg 25mg bid, Norvasc 10mg qd, HCTZ 50mg qd, Imdur, and continue Hydralazine 50mg q6h as started during previous admission 12/23. -Monitor BP, adjust antihypertensives as needed. -Of note, discussed with patient to talk with his PCP about discontinuing Losartan when BP controlled as he has allergy with angioedema with ACEi, patient verbalized understanding. -12/25 BP still elevated today, increased Hydralazine to max dose of 100mg q8h , and changed Norvasc to Nifedipine XL 90mg daily. Non-compliance: As above, pt non-compliant w/ treatment and follow-up, LEFT AGAINST MEDICAL ADVICE on recent admit. -Urged importance of taking meds as directed and following up w/ PCP. -Previously follows w/ Dr. Borges as outpatient, but also non-compliant. Uncontrolled DM with Hyperglycemia: Blood sugar over 400. -Continue High Dose Sliding scale w/ Accu-Cheks. -Resumed home Insulin, levemir. -Hgb A1c 9.4 on 08/11/16, repeat HgbA1c 10.5 -Diabetic diet. -S/p 10u IV regular insulin and IVF bolus -Blood glucose still uncontrolled, increased Levemir from 60u bid to 75u bid -Blood sugars improving today, currently 257 Renal Insufficiency: Chronic. Creatinine 1.42, previously 1.36 on 10/21/16. -Will monitor. -Avoid nephrotoxins. -Renal function at baseline. DVT Prophylaxis: On Eliquis Discussed with Dr. Christensen. Discharge Planning Hopefully discharge today if BP better controlled SBP < 160 and blood sugar < 300. 1140hrs: Patient's morning blood sugars 257 and now 193, which is much better controlled for this patient. Blood pressure also much improved, currently 141/ 88. Patient is stable for discharge home. Discharge patient to home Condition on discharge: Improved Diabetic/Heart Healthy Diet as tolerated Ad Edilia activity Rx written: Hydralazine 100mg po q8h, Nifedipine XL 90mg daily, Levemir 75u sq bid Follow-up with primary care physician Dr. Harris within 2-3 days Attending Statement Seen in his bedroom, discussed with PA Mrs. Berta Siu will be discharged later today follow with PCP and Cardiology as outpatient. Problem Qualifiers (1) Chest pain: Qualified Code: R07.9 - Chest pain, unspecified type Berta Siu PA-C Dec 25, 2016 10:11 Jeremy Lema MD Dec 25, 2016 18:05
[2016-12-25 11:27] VITALS: BP 141/88; PULSE 68; RESP 16
[2016-12-25] MEDS ORDERED: LANTUS2P SQ (11:36)
[2016-12-25] MEDS ORDERED: HYDR-3801 PO (11:36)
[2016-12-25] MEDS ORDERED: NIFE90TA2 PO (11:36)
--- NOTE | 2016-12-25 11:37 | HHI.DCPOC ---
Discharge Care Plan Diagnosis: (1) Hypertension (2) Atypical chest pain (3) Hx of coronary artery disease (4) Hyperlipidemia (5) DM (diabetes mellitus) (6) Chronic back pain (7) GERD (gastroesophageal reflux disease) Goals to Promote Your Health * To prevent worsening of your condition and complications * To maintain your health at the optimal level Directions to Meet Your Goals Take your medications as prescribed Follow your dietary instruction Follow activity as directed Keep your appointments as scheduled Take your immunizations and boosters as scheduled If your symptoms worsen call your PCP, if no PCP go to Urgent Care Center or Emergency Room Smoking is Dangerous to Your Health. Avoid second hand smoke Call the 24-hour hour crisis hotline for domestic abuse at Berta Siu PA-C Dec 25, 2016 11:37
[2016-12-25 11:47] VITALS: PULSE 73
[2016-12-25] MEDS ORDERED: hydrALAZINE HCL 100 MG TAB PO SCH (17:00)
== END 2016-12-25 13:53 | disposition home or self-care (01) ==
LOC: NEPC 19:09 → NEDA 21:21 → NEPGCP 23:48
PROVIDERS: ADMIT Internal Medicine; ATTEND Internal Medicine
DX: R07.89 Other chest pain (principal); I25.10 Atherosclerotic heart disease of native coronary artery without angina pectoris; E11.22 Type 2 diabetes mellitus with diabetic chronic kidney disease; E11.65 Type 2 diabetes mellitus with hyperglycemia; I12.9 Hypertensive chronic kidney disease with stage 1 through stage 4 chronic kidney disease, or unspecified chronic kidney disease; N18.9 Chronic kidney disease, unspecified; D57.1 Sickle-cell disease without crisis; D64.9 Anemia, unspecified; Z91.19 Patient's noncompliance with other medical treatment and regimen; Z95.5 Presence of coronary angioplasty implant and graft; Z96.642 Presence of left artificial hip joint; Z88.5 Allergy status to narcotic agent; Z88.8 Allergy status to other drugs, medicaments and biological substances; Z86.73 Personal history of transient ischemic attack (TIA), and cerebral infarction without residual deficits; Z79.4 Long term (current) use of insulin
CPT/HCPCS: 80048; 80053; 80307; 82550; 82552; 82948; 83036; 83735; 84484; 85025; 85610; 85730; 96372; 96374; 96375; 96376; 99285; G0378; J0360; J1815; J2270; J7040

== ENCOUNTER 2017-02-21 00:08 | Emergency (ER) | payer OTHER, MEDICAID ==
[~2017-02-21] VITALS: Ht 175.3 cm; Wt 115.0 kg
[~2017-02-21 00:08] MED LIST changes: -AMLO10 PO; -HYDR-3800 PO; +HYDR-3801 PO; +NIFE90TA2 PO
[2017-02-21 00:12] VITALS: BP 247/110; PULSE 65; RESP 16; O2SAT 97
[2017-02-21] MEDS ORDERED: ORPHENADRINE INJ 60 MG/2 ML AMP IM ONE (00:45)
[2017-02-21] MEDS ORDERED: MORPHINE SULFATE 4 MG/ML INJ IV PUSH ONE (01:00)
[2017-02-21] MEDS ORDERED: cloNIDine HCL 0.1 MG TAB PO ONE (01:00)
[2017-02-21] MEDS ORDERED: ONDANSETRON HCL 4 MG/2 ML VIAL IV PUSH ONE (01:00)
--- NOTE | 2017-02-21 01:15 | PD ---
HPI Chief Complaint: Headache Time Seen by Provider: 00:39 Travel History International Travel<30 days: No Contact w/Intl Traveler<30days: No Traveled to known affect area: No History of Present Illness HPI The patient is a 61 year old male who presents to the [facility] emergency department with a history of back pain associated with bilateral lower extremity cramping that began to worsen throughout the day today. The patient reports that he has a history of similar back pain with lower extremity cramping. He reports that recently he has been getting and Norflex prescription and twice a week going to his primary care physician for an injection. He reports that it has been working less well recently. He was concerned that it might be related to his cholesterol medication as he read that this can cause muscle cramping, therefore he did not take his medicine for cholesterol today. He reports that he did take all of his other usual medication. He reports that the pain radiates around from his back into his abdomen. He reports that he is also had a headache throughout the day. He reports that he usually has difficulty controlling his blood pressure when he has pain. The patient denies having any chest pain, chest pressure, or shortness of breath. The patient denies having any recent fevers, cough, congestion, neck pain, vomiting, diarrhea, urinary symptoms, or new neurologic symptoms. [facility] Past Medical History Narrative Medical The patient's past medical history is significant for hypertension, sickle cell trait, anemia, coronary artery disease, diabetes mellitus, history of chronic back pain, history of hyperlipidemia, history of an abdominal aortic aneurysm status post repair. Hx Anticoagulant Therapy: Yes AAA: Yes (JUL 2011/ ) Anemia: Yes Arthritis: No Asthma: No Autoimmune Disease: No Blood Disorders: Yes (SICKLE CELL TRAIT) Anxiety: No Depression: No Heart Rhythm Problems: Yes Cancer: No Cardiovascular Problems: Yes High Cholesterol: No Chemotherapy: No Chest Pain: Yes Congestive Heart Failure: No COPD: No Cerebrovascular Accident: Yes Coronary Artery Disease: Yes Diabetes: No Diminished Hearing: No Deep Vein Thrombosis: Yes (LT LEG) Endocrine: No GERD: No Glaucoma: No Genitourinary: No Headaches: No Hepatitis: No Hiatal Hernia: No Heparin Induced Thrombocytopen: No Hypertension: Yes Immune Disorder: No Implanted Vascular Access Dvce: Yes (RIGHT INSULIN PUMP removed) Kidney Stones: No Musculoskeletal: No Neurologic: No Psychiatric: No Reproductive: No Respiratory: No Immunizations Current: Yes Migraines: No Myocardial Infarction: No Pancreatitis: Yes Radiation Therapy: No Renal Failure: No Seizures: No Sickle Cell Disease: Yes (TRAIT) Sleep Apnea: No Thyroid Disease: No Ulcer: No PNEUMOCCOCAL Vaccine (Year): 3 Past Surgical History Narrative Surgical The patient's past surgical history is significant for an abdominal aortic aneurysm repair, cardiac catheterization with stent placement, insulin pump placement and then removal, left hip replacement. Abdominal Aneurysm Repair: Yes (2012) Abdominal Surgery: Yes AICD: No Appendectomy: No Arteriovenous Shunt: No Body Medical Devices: STENTS X 4 Cardiac Surgery: Yes (stent placement recently ) Cholecystectomy: Yes Coronary Artery Bypass Graft: No Coronary Stent: Yes (2009 X 2, 2010 X2) Ear Surgery: No Endocrine Surgery: No Eye Surgery: No Genitourinary Surgery: No Gynecologic Surgery: No Insulin Pump: Yes (removed) Joint Replacement: Yes (left hip) Neurologic Surgery: No Oral Surgery: No Pacemaker: No Thoracic Surgery: No Other Surgery: Yes (Stent placement x 2 ) Social History Alcohol Use: No Tobacco Use: No (QUIT 2005) Substance Use: No Allergies-Medications (Allergen,Severity, Reaction): Coded Allergies: DAWIT Inhibitors (Verified Allergy, Severe, ANGIOEDEMA, 02/21/17) Vasotec (Verified Allergy, Severe, 02/21/17) ANGIOEDEMA Dilaudid (Verified Adverse Reaction, Intermediate, ITCHING, 02/21/17) Reported Meds & Prescriptions Reported Meds & Active Scripts Active Nifedipine ER (Nifedipine) 90 Mg Tab 90 Mg PO DAILY Hydralazine (Hydralazine HCl) 100 Mg Tab 100 Mg PO Q8H Lantus Inj (Insulin Glargine) 1,000 Unit/10 Ml Vial 75 Units SQ BID 30 Days Cardura (Doxazosin Mesylate) 2 Mg Tab 2 Mg PO DAILY Isosorbide Mononitrate ER (Isosorbide Mononitrate) 60 Mg Tab 60 Mg PO DAILY@07 Cozaar (Losartan Potassium) 50 Mg Tab 100 Mg PO DAILY Plavix (Clopidogrel Bisulfate) 75 Mg Tab 75 Mg PO DAILY Lipitor (Atorvastatin Calcium) 40 Mg Tab 80 Mg PO DAILY Reported Eliquis (Apixaban) 5 Mg Tab 5 Mg PO BID Zetia (Ezetimibe) 10 Mg Tab 10 Mg PO DAILY Neupro Patch 24 HR (Rotigotine Patch 24 HR) 3 Mg/24 Hr Patch 3 Mg T-DERMAL DAILY Klonopin (Clonazepam) 2 Mg Tab 2 Mg PO BID Aspirin 81 Mg Chew 81 Mg CHEW DAILY Orphenadrine ER 12 HR (Orphenadrine Citrate) 100 Mg Tab 100 Mg PO BID Ambien (Zolpidem Tartrate) 10 Mg Tab 10 Mg PO HS PRN Novolin R Inj (Insulin Human Regular) 1,000 Unit/10 Ml Vial 0 SQ TIDACHS Sliding Scale As Directed. Nitroglycerin SL (Nitroglycerin) 0.4 Mg Subl 0.4 Mg SL DIRECTED PRN ONE TABLET UNDER THE TONGUE NEEDED FOR CHEST PAIN, MAY REPEAT EVERY FIVE MINUTES FOR A TOTAL OF 3 DOSES OR CALL 911 IF NO RELIEF Lortab (Hydrocodone-Acetaminophen) 10-325 Mg Tab 1 Tab PO Q4H PRN K-Tab (Potassium Chloride) 20 Meq Tab 20 Meq PO DAILY Hydrochlorothiazide 50 Mg Tab 50 Mg PO DAILY Coreg (Carvedilol) 25 Mg Tab 25 Mg PO BID Gabapentin 800 Mg Tab 800 Mg PO TID Review of Systems Except as stated in HPI: all other systems reviewed are Neg General / Constitutional: No: Fever Eyes: No: Visual changes HENT: Positive: Headaches, No: Rhinorrhea, Congestion, Neck Stiffness, Neck Pain Cardiovascular: No: Chest Pain or Discomfort Respiratory: No: Shortness of Breath, Sneezing Gastrointestinal: Positive: Abdominal Pain, No: Nausea, Vomiting, Diarrhea Genitourinary: No: Dysuria Musculoskeletal: Positive: Myalgias, Arthralgias, Cramping, Pain Skin: No Rash Neurologic: No: Weakness, Focal Abnormalities, Change in Mentation, Slurred Speech, Sensory Disturbance Psychiatric: No: Depression Endocrine: No: Polydipsia Hematologic/Lymphatic: No: Easy Bruising Physical Exam Narrative General: The patient is a well-developed well-nourished male in no acute distress. Head and Neck exam: Head is normocephalic atraumatic. Eyes: EOMI, pupils are equal round and reactive to light. Nose: Midline septum with pink mucous membranes Mouth: Dentition unremarkable. Moist mucus membranes. Posterior oropharynx is not erythematous. No tonsillar hypertrophy. Uvula midline. Airway patent. Neck: No palpable lymphadenopathy. No nuchal rigidity. No thyromegaly. Cardiovascular: Regular rate and rhythm without murmurs, gallops, or rubs. No pulse deficit to the extremities and simultaneous auscultation and palpation of his radial artery. Lungs: Clear to auscultation bilaterally. No wheezes, rhonchi, or rales. Abdomen: Soft, without tenderness to palpation in all 4 quadrants of the abdomen. No guarding, rebound, or rigidity. Normal bowel sounds are audible. No tenderness on palpation of McBurney's point. Negative [place] sign. Extremities: No clubbing or cyanosis. The patient has trace to 1+ edema bilateral lower extremities with chronic venous stasis changes. 2+ pulses in all 4 extremities. No calf tenderness on palpation. Back: No spinous process tenderness to palpation. No costovertebral angle tenderness to palpation. Neurologic Exam: Grossly nonfocal. Skin Exam: No rash noted. Intact skin that is warm and dry. Data Data Last Documented VS Vital Signs Date Time Temp Pulse Resp B/P Pulse Ox O2 Delivery O2 Flow Rate FiO2 02/21/17 03:18 87 18 168/70 99 Room Air Orders Orphenadrine Inj (Norflex Inj) (02/21/17 00:45) Clonidine (Catapres) (02/21/17 01:00) Ct Brain W/O Iv Contrast(Rout) (02/21/17 00:53) Complete Blood Count With Diff (02/21/17 00:55) Iv Access Insert/Monitor (02/21/17 00:55) Ecg Monitoring (02/21/17 00:55) Oximetry (02/21/17 00:55) Morphine Inj (Morphine Inj) (02/21/17 01:00) Ondansetron Inj (Zofran Inj) (02/21/17 01:00) Comprehensive Metabolic Panel (02/21/17 00:56) Prothrombin Time / Inr (Pt) (02/21/17 00:56) Act Partial Throm Time (Ptt) (02/21/17 00:56) Lipase (02/21/17 00:56) Labs Laboratory Tests Test 02/21/17 01:04 White Blood Count 5.5 TH/MM3 Red Blood Count 4.47 MIL/MM3 Hemoglobin 11.7 GM/DL Hematocrit 35.0 % Mean Corpuscular Volume 78.3 FL Mean Corpuscular Hemoglobin 26.3 PG Mean Corpuscular Hemoglobin 33.6 % Concent Red Cell Distribution Width 18.4 % Platelet Count 177 TH/MM3 Mean Platelet Volume 7.8 FL Neutrophils (%) (Auto) 57.8 % Lymphocytes (%) (Auto) 26.8 % Monocytes (%) (Auto) 11.1 % Eosinophils (%) (Auto) 3.7 % Basophils (%) (Auto) 0.6 % Neutrophils # (Auto) 3.2 TH/MM3 Lymphocytes # (Auto) 1.5 TH/MM3 Monocytes # (Auto) 0.6 TH/MM3 Eosinophils # (Auto) 0.2 TH/MM3 Basophils # (Auto) 0.0 TH/MM3 CBC Comment DIFF FINAL Differential Comment Prothrombin Time 11.0 SEC Prothromb Time International 1.0 RATIO Ratio Activated Partial 26.7 SEC Thromboplast Time Sodium Level 141 MEQ/L Potassium Level 4.1 MEQ/L Chloride Level 105 MEQ/L Carbon Dioxide Level 28.9 MEQ/L Anion Gap 7 MEQ/L Blood Urea Nitrogen 17 MG/DL Creatinine 1.59 MG/DL Estimat Glomerular Filtration 54 ML/MIN Rate Random Glucose 327 MG/DL Calcium Level 8.5 MG/DL Total Bilirubin 0.4 MG/DL Aspartate Amino Transf 19 U/L (AST/SGOT) Alanine Aminotransferase 30 U/L (ALT/SGPT) Alkaline Phosphatase 126 U/L Total Protein 7.0 GM/DL Albumin 3.1 GM/DL Lipase 106 U/L [facility] Medical Decision Making Medical Screen Exam Complete: Yes Emergency Medical Condition: Yes Medical Record Reviewed: Yes Interpretation(s) Last Impressions Head CT 02/21/17 0053 Signed Impressions: Service Date/Time: Tuesday, February 21, 2017 01:18 - CONCLUSION: Left maxillary sinus mucosal disease. Remote lacunar infarcts. Elmer Maldonado MD Differential Diagnosis Exacerbation of chronic back pain, versus pancreatitis, versus electrolyte derangements causing muscle cramping, versus medication side effect from statin Narrative Course During the course of the patients emergency department visit, the patients history, examination, and differential diagnosis were reviewed with the patient. The patient had IV access obtained and blood work sent for analysis. The patient's was on a sustainable systems analyst with oximetry and blood pressure monitoring. A CT scan of the brain was ordered. The patient was initially provided Norflex 60 mg IM for pain, morphine 4 mg IV for pain, Zofran 4 mg IV for nausea. The patient was given clonidine 0.1 by mouth times one for hypertension. The patients laboratory studies were reviewed and remarkable for white count of 5.5, hemoglobin 11.7, platelets 177 with 11.1 monocytes, CMP is remarkable for creatinine of 1.59 which is at the patient's baseline, glucose 327, alkaline phosphatase 126, albumin 3.1, lipase 106, PT 11, PTT 26.7 Radiology studies were reviewed and remarkable for CT scan of the brain shows left maxillary sinus mucosal thickening, remote lacunar infarcts. The patient is resting comfortably and feels better, is alert and in no distress. The patients results and examination findings were discussed with the patient. The repeat examination is unremarkable and benign. The history, exam, diagnostic testing, and current condition do not suggest any significant pathology to warrant further testing, continued ED treatment, admission, or surgical evaluation at this point. The vital signs have been stable. The patient does not have uncontrollable pain, intractable vomiting, or other significant symptoms. The patient's condition is stable and appropriate for discharge. The patient will pursue further outpatient evaluation with a primary care physician or other designated or consulting physician as indicated in the discharge instructions. The patient expressed understanding and was agreeable with this plan. Diagnosis Primary Impression: Acute exacerbation of chronic low back pain Additional Impressions: Myalgia HTN (hypertension) Qualified Code: I10 - Hypertension, unspecified type Referrals: Primary Care Physician 3 days Patient Instructions: Back Pain (ED), General Instructions, Hypertension (ED), Muscle Cramp (ED) Additional Instructions: Discussed with her primary care physician changing her cholesterol medication as this could be exacerbating her muscle pain. Med/Other Pt SpecificInfo: No Change to Meds Disposition: 01 DISCHARGE HOME Condition: Stable Lorena Hutson MD Feb 21, 2017 01:15
[2017-02-21 01:27] LABS: AUTOMATED NEUTROPHIL # 3.2 TH/MM3 (1.8-7.7); BASOPHIL % 0.6 % (0.0-2.0); EOSINOPHIL # 0.2 TH/MM3 (0-0.4); EOSINOPHIL % 3.7 % (0.0-4.0); HEMO FLAGS DIFF FINAL; LYMPH % 26.8 % (9.0-44.0); LYMPHOCYTE # 1.5 TH/MM3 (1.0-4.8); MEAN CELL VOLUME 78.3 FL (80.0-100.0); MEAN CORPUSCULAR HEMOGLOBIN 26.3 PG (27.0-34.0); MEAN CORPUSCULAR HGB CONC 33.6 % (32.0-36.0); MONO % 11.1 % (0.0-8.0); NEUT % 57.8 % (16.0-70.0); PLATELET COUNT 177 TH/MM3 (150-450); RED BLOOD COUNT 4.47 MIL/MM3 (4.50-5.90); RED CELL DISTRIBUTION WIDTH 18.4 % (11.6-17.2); WHITE BLOOD COUNT 5.5 TH/MM3 (4.0-11.0)
--- NOTE | 2017-02-21 01:31 | RADRPT ---
EXAM DATE/TIME: 02/21/2017 01:18 [place] COMPARISON: CT BRAIN W/O CONTRAST, December 22, 2016, 2:49. INDICATIONS : Cephalgia. RADIATION DOSE: 56.77 CTDIvol (mGy) MEDICAL HISTORY : Deep venous thrombosis. Aneurysm, abdominal. Pancreatitis.Sickle cell trait. Cardiovascular disease. Coronary artery disease. SURGICAL HISTORY : Abdominal aortic aneurysm repair. Cholecystectomy.Coronary stent. ENCOUNTER: Initial ACUITY: 1 day PAIN SCALE: 8/10 LOCATION: cranial TECHNIQUE: Multiple contiguous axial images were obtained of the head. Using automated exposure control and adj ustment of the mA and/or kV according to patient size, radiation dose was kept as low as reasonably a chievable to obtain optimal diagnostic quality images. DICOM format image data is available electro nically for review and comparison. FINDINGS: Cisterns are of normal size and configuration. There is a remote right basal ganglia and left basal g anglia lacunar infarct again seen. No signs of acute infarct, hemorrhage or mass. There is opacificat ion of the left maxillary sinus, new from previous. CONCLUSION: Left maxillary sinus mucosal disease. Remote lacunar infarcts. Elmer Maldonado MD on February 21, 2017 at 1:29 Board Certified Radiologist. This report was verified electronically.
[2017-02-21 01:39] LABS: APTT (PATIENT) 26.7 SEC (24.3-30.1)
[2017-02-21 01:47] LABS: ALT (GPT) 30 U/L (12-78); ANION GAP 7 MEQ/L (5-15); AST (GOT) 19 U/L (15-37); BICARBONATE 28.9 MEQ/L (21.0-32.0); BLOOD UREA NITROGEN 17 MG/DL (7-18); CHLORIDE 105 MEQ/L (98-107); GLOMERULAR FILTRATION RATE 54 ML/MIN (>89); POTASSIUM 4.1 MEQ/L (3.5-5.1); SODIUM (NA) 141 MEQ/L (136-145)
[2017-02-21 01:49] LABS: ALKALINE PHOSPHATASE 126 U/L (45-117); TOTAL BILIRUBIN ADULT 0.4 MG/DL (0.2-1.0)
[2017-02-21 02:53] VITALS: O2SAT 99
[2017-02-21 03:18] VITALS: BP 168/70; PULSE 87; RESP 18; O2SAT 99
== END 2017-02-21 03:19 | disposition home or self-care (01) ==
LOC: NEPE 00:08
DX: M54.5 Low back pain (principal); G89.29 Other chronic pain; M79.1 Myalgia; R51 Headache; R10.9 Unspecified abdominal pain; I10 Essential (primary) hypertension; D57.3 Sickle-cell trait; D64.9 Anemia, unspecified; E11.9 Type 2 diabetes mellitus without complications
CPT/HCPCS: 70450; 80053; 83690; 85025; 85610; 85730; 96372; 96374; 96375; 99285; J2270; J2360; J2405

== ENCOUNTER 2017-02-26 02:58 | Emergency (ER) | payer OTHER, MEDICAID ==
[~2017-02-26] VITALS: Ht 175.3 cm; Wt 113.5 kg
[2017-02-26 03:00] VITALS: BP 238/107; PULSE 62; RESP 16; TEMP 97.6; O2SAT 96
[2017-02-26 03:52] VITALS: BP 245/114; PULSE 58; RESP 18; TEMP 97.4; O2SAT 97
[2017-02-26] MEDS ORDERED: SODIUM CHLORIDE 0.9% FLUSH 10 ML FLUSH IVF PRN (04:15)
[2017-02-26 04:27] LABS: AUTOMATED NEUTROPHIL # 3.8 TH/MM3 (1.8-7.7); BASOPHIL % 0.7 % (0.0-2.0); EOSINOPHIL # 0.2 TH/MM3 (0-0.4); EOSINOPHIL % 3.8 % (0.0-4.0); HEMATOCRIT 37.3 % (39.0-51.0); HEMO FLAGS DIFF FINAL; LYMPH % 21.4 % (9.0-44.0); LYMPHOCYTE # 1.3 TH/MM3 (1.0-4.8); MEAN CORPUSCULAR HEMOGLOBIN 25.9 PG (27.0-34.0); MEAN CORPUSCULAR HGB CONC 33.2 % (32.0-36.0); MONO % 10.5 % (0.0-8.0); NEUT % 63.6 % (16.0-70.0); PLATELET COUNT 185 TH/MM3 (150-450); RED BLOOD COUNT 4.78 MIL/MM3 (4.50-5.90); WHITE BLOOD COUNT 5.9 TH/MM3 (4.0-11.0)
[2017-02-26 04:47] LABS: APTT (PATIENT) 25.9 SEC (24.3-30.1); INTERNATIONAL NORMALIZED RATIO 0.9 RATIO
[2017-02-26] MEDS ORDERED: NITROGLYCERIN 0.4 MG SL 25 TABS/BTL SL ONE (05:00)
[2017-02-26] MEDS ORDERED: MORPHINE SULFATE 4 MG/ML INJ IV PUSH ONE (05:00)
[2017-02-26] MEDS ORDERED: ASPIRIN 81 MG CHEW TAB CHEW ONE (05:00)
--- NOTE | 2017-02-26 05:04 | PD ---
HPI Chief Complaint: Back/ Neck Pain or Injury Time Seen by Provider: 03:50 Travel History International Travel<30 days: No Contact w/Intl Traveler<30days: No Traveled to known affect area: No History of Present Illness HPI 61-year-old male presents emergency Department with low back pain. Patient states as a history of low back plain takes Norflex at home. He states that his pain is been worsening over the past few days and radiating into his chest. Denies any shortness of breath denies any abdominal pain nausea or vomiting. Patient has been admitted multiple times to the hospital and seen cardiology multiple times and his left AMA at some points and has had catheter that others. His last catheterization was in July and did show multiple vessel disease. Patient declines any saddle anesthesia difficulty ambulating. PFSH Past Medical History Hx Anticoagulant Therapy: Yes (Eliquis) AAA: Yes (JUL 2011/ ) Anemia: Yes Arthritis: No Asthma: No Autoimmune Disease: No Blood Disorders: Yes (SICKLE CELL TRAIT) Anxiety: No Depression: No Heart Rhythm Problems: Yes Cancer: No Cardiovascular Problems: Yes (HTN, Stents x3, CAD) High Cholesterol: No Chemotherapy: No Chest Pain: Yes Congestive Heart Failure: No COPD: No Cerebrovascular Accident: Yes Coronary Artery Disease: Yes Diabetes: Yes Patient Takes Glucophage: No Diminished Hearing: No Deep Vein Thrombosis: Yes (LT LEG) Endocrine: No GERD: No Glaucoma: No Genitourinary: No Headaches: No Hepatitis: No Hiatal Hernia: No Heparin Induced Thrombocytopen: No Hypertension: Yes Immune Disorder: No Implanted Vascular Access Dvce: Yes (RIGHT INSULIN PUMP removed) Kidney Stones: No Musculoskeletal: No Neurologic: No Psychiatric: No Reproductive: No Respiratory: No Immunizations Current: Yes Migraines: No Myocardial Infarction: No Pancreatitis: Yes Radiation Therapy: No Renal Failure: No Seizures: No Sickle Cell Disease: Yes (TRAIT) Sleep Apnea: No Thyroid Disease: No Ulcer: No Influenza Vaccination: No PNEUMOCCOCAL Vaccine (Year): 3 Past Surgical History Abdominal Aneurysm Repair: Yes (2012) Abdominal Surgery: Yes AICD: No Appendectomy: No Arteriovenous Shunt: No Body Medical Devices: STENTS X 4 Cardiac Surgery: Yes (stent placement recently ) Cholecystectomy: Yes Coronary Artery Bypass Graft: No Coronary Stent: Yes (2009 X 2, 2010 X2) Ear Surgery: No Endocrine Surgery: No Eye Surgery: No Genitourinary Surgery: No Gynecologic Surgery: No Insulin Pump: Yes (removed) Joint Replacement: Yes (LEFT HIP 1999) Neurologic Surgery: No Oral Surgery: No Pacemaker: No Thoracic Surgery: No Other Surgery: Yes (Stent placement x 2 ) Social History Alcohol Use: No Tobacco Use: No (QUIT 2005) Substance Use: No Allergies-Medications (Allergen,Severity, Reaction): Coded Allergies: DAWIT Inhibitors (Verified Allergy, Severe, ANGIOEDEMA, 02/21/17) Vasotec (Verified Allergy, Severe, 02/21/17) ANGIOEDEMA Dilaudid (Verified Adverse Reaction, Intermediate, ITCHING, 02/21/17) Reported Meds & Prescriptions Reported Meds & Active Scripts Active Nifedipine ER (Nifedipine) 90 Mg Tab 90 Mg PO DAILY Hydralazine (Hydralazine HCl) 100 Mg Tab 100 Mg PO Q8H Lantus Inj (Insulin Glargine) 1,000 Unit/10 Ml Vial 75 Units SQ BID 30 Days Cardura (Doxazosin Mesylate) 2 Mg Tab 2 Mg PO DAILY Isosorbide Mononitrate ER (Isosorbide Mononitrate) 60 Mg Tab 60 Mg PO DAILY@07 Cozaar (Losartan Potassium) 50 Mg Tab 100 Mg PO DAILY Plavix (Clopidogrel Bisulfate) 75 Mg Tab 75 Mg PO DAILY Lipitor (Atorvastatin Calcium) 40 Mg Tab 80 Mg PO DAILY Reported Eliquis (Apixaban) 5 Mg Tab 5 Mg PO BID Zetia (Ezetimibe) 10 Mg Tab 10 Mg PO DAILY Neupro Patch 24 HR (Rotigotine Patch 24 HR) 3 Mg/24 Hr Patch 3 Mg T-DERMAL DAILY Klonopin (Clonazepam) 2 Mg Tab 2 Mg PO BID Aspirin 81 Mg Chew 81 Mg CHEW DAILY Orphenadrine ER 12 HR (Orphenadrine Citrate) 100 Mg Tab 100 Mg PO BID Ambien (Zolpidem Tartrate) 10 Mg Tab 10 Mg PO HS PRN Novolin R Inj (Insulin Human Regular) 1,000 Unit/10 Ml Vial 0 SQ TIDACHS Sliding Scale As Directed. Nitroglycerin SL (Nitroglycerin) 0.4 Mg Subl 0.4 Mg SL DIRECTED PRN ONE TABLET UNDER THE TONGUE NEEDED FOR CHEST PAIN, MAY REPEAT EVERY FIVE MINUTES FOR A TOTAL OF 3 DOSES OR CALL 911 IF NO RELIEF Lortab (Hydrocodone-Acetaminophen) 10-325 Mg Tab 1 Tab PO Q4H PRN K-Tab (Potassium Chloride) 20 Meq Tab 20 Meq PO DAILY Coreg (Carvedilol) 25 Mg Tab 25 Mg PO BID Gabapentin 800 Mg Tab 800 Mg PO TID Review of Systems Except as stated in HPI: all other systems reviewed are Neg Physical Exam Narrative GENERAL: Well-developed well-nourished, morbidly obese in no apparent distress. SKIN: Focused skin assessment warm/dry. HEAD: Atraumatic. Normocephalic. EYES: Pupils equal and round. No scleral icterus. No injection or drainage. ENT: No nasal bleeding or discharge. Mucous membranes pink and moist. NECK: Trachea midline. No JVD. CARDIOVASCULAR: Regular rate and rhythm. No murmur appreciated. RESPIRATORY: No accessory muscle use. Clear to auscultation. Breath sounds equal bilaterally. GASTROINTESTINAL: Abdomen soft, non-tender, nondistended. Hepatic and splenic margins not palpable. MUSCULOSKELETAL: No obvious deformities. No clubbing. No cyanosis. No edema. No midline CT or L-spine tenderness. Pulses motor and sensory intact distally in all 4 extremities. 5 out of 5 strength in all 4 extremities. NEUROLOGICAL: Awake and alert. No obvious cranial nerve deficits. Motor grossly within normal limits. Normal speech. PSYCHIATRIC: Appropriate mood and affect; insight and judgment normal. Data Data Last Documented VS Vital Signs Date Time Temp Pulse Resp B/P Pulse Ox O2 Delivery O2 Flow Rate FiO2 02/26/17 06:21 60 20 222/105 97 02/26/17 05:21 Room Air 02/26/17 03:52 97.4 Orders Electrocardiogram (02/26/17 04:07) Basic Metabolic Panel (Bmp) (02/26/17 04:07) Ckmb (Isoenzyme) Profile (02/26/17 04:07) Complete Blood Count With Diff (02/26/17 04:07) Magnesium (Mg) (02/26/17 04:07) Prothrombin Time / Inr (Pt) (02/26/17 04:07) Act Partial Throm Time (Ptt) (02/26/17 04:07) Troponin I (02/26/17 04:07) Ecg Monitoring (02/26/17 04:07) Bilateral Bp Monitoring (02/26/17 04:07) Iv Access Insert/Monitor (02/26/17 04:07) Oximetry (02/26/17 04:07) Oxygen Administration (02/26/17 04:07) Sodium Chloride 0.9% Flush (Ns Flush) (02/26/17 04:15) Aspirin Chew (Aspirin Chew) (02/26/17 05:00) Morphine Inj (Morphine Inj) (02/26/17 05:00) Nitroglycerin Sl (Nitrostat Sl) (02/26/17 05:00) CKMB (02/26/17 04:05) CKMB% (02/26/17 04:05) Orphenadrine Inj (Norflex Inj) (02/26/17 05:30) Chest, Single Ap (02/26/17 ) Nitroglycerin Sl (Nitrostat Sl) (02/26/17 05:30) Ketorolac Inj (Toradol Inj) (02/26/17 06:15) Labs Laboratory Tests Test 02/26/17 04:05 White Blood Count 5.9 TH/MM3 Red Blood Count 4.78 MIL/MM3 Hemoglobin 12.4 GM/DL Hematocrit 37.3 % Mean Corpuscular Volume 78.0 FL Mean Corpuscular Hemoglobin 25.9 PG Mean Corpuscular Hemoglobin 33.2 % Concent Red Cell Distribution Width 18.0 % Platelet Count 185 TH/MM3 Mean Platelet Volume 8.1 FL Neutrophils (%) (Auto) 63.6 % Lymphocytes (%) (Auto) 21.4 % Monocytes (%) (Auto) 10.5 % Eosinophils (%) (Auto) 3.8 % Basophils (%) (Auto) 0.7 % Neutrophils # (Auto) 3.8 TH/MM3 Lymphocytes # (Auto) 1.3 TH/MM3 Monocytes # (Auto) 0.6 TH/MM3 Eosinophils # (Auto) 0.2 TH/MM3 Basophils # (Auto) 0.0 TH/MM3 CBC Comment DIFF FINAL Differential Comment Prothrombin Time 10.0 SEC Prothromb Time International 0.9 RATIO Ratio Activated Partial 25.9 SEC Thromboplast Time Sodium Level 141 MEQ/L Potassium Level 4.3 MEQ/L Chloride Level 106 MEQ/L Carbon Dioxide Level 28.9 MEQ/L Anion Gap 6 MEQ/L Blood Urea Nitrogen 19 MG/DL Creatinine 1.51 MG/DL Estimat Glomerular Filtration 58 ML/MIN Rate Random Glucose 243 MG/DL Calcium Level 8.9 MG/DL Magnesium Level 2.2 MG/DL Total Creatine Kinase 266 U/L Creatine Kinase MB 2.3 NG/ML Troponin I 0.08 NG/ML [facility] Medical Decision Making Medical Screen Exam Complete: Yes Emergency Medical Condition: Yes Differential Diagnosis Chronic back pain, ACS, AMI, Narrative Course Patient roomed emerged Department, had multiple requests for pain medications including Toradol which I discussed with him if he does have coronary disease may exacerbate it. He was for a dose. He was also given narcotic pain medications. His troponin is elevated at 0.08 which appears to be about his baseline. His EKG is reassuring. Given the nature of his coronary artery disease I suggested that he stay in the hospital as I couldn't adequately exclude that his pain was from coronary artery. Not to mention his blood pressure is significantly elevated. I strongly recommended that he stay in the hospital from my suspicion of hypertensive cardiomyopathy. I discussed with him the risks of continued elevation of his blood pressure and this troponin could lead to sudden and/or permanent disability. He verbalized understanding and stated that he is the [employer] and wanted to be at services in the morning. He understands the risks of leaving and would like to do so. His back pain is feeling better after pain medications. I discussed the importance for him to follow up with his primary care physician as soon as possible and return to ED criteria at anytime for further evaluation. Diagnosis Primary Impression: Low back pain Additional Impression: Chest pain Med/Other Pt SpecificInfo: Prescription(s) given Disposition: 01 DISCHARGE HOME Condition: Stable Willie Gamble MD Feb 26, 2017 05:04
[2017-02-26 05:18] VITALS: BP 219/156; PULSE 64; RESP 20; O2SAT 94
[2017-02-26 05:21] VITALS: BP 211/98; PULSE 65; RESP 20; O2SAT 94
[2017-02-26 05:22] LABS: ANION GAP 6 MEQ/L (5-15); BICARBONATE 28.9 MEQ/L (21.0-32.0); BLOOD UREA NITROGEN 19 MG/DL (7-18); CHLORIDE 106 MEQ/L (98-107); CREATINE KINASE 266 U/L (39-308); GLOMERULAR FILTRATION RATE 58 ML/MIN (>89); MAGNESIUM 2.2 MG/DL (1.5-2.5); SODIUM (NA) 141 MEQ/L (136-145)
[2017-02-26 05:24] LABS: POTASSIUM 4.3 MEQ/L (3.5-5.1)
[2017-02-26] MEDS: NITROGLYCERIN 0.4 MG SL 25 TABS/BTL SL SCH ×3 (05:30→05:40)
[2017-02-26] MEDS ORDERED: ORPHENADRINE INJ 60 MG/2 ML AMP IM ONE (05:30)
[2017-02-26 05:36] LABS: CKMB 2.3 NG/ML (0.5-3.6)
--- NOTE | 2017-02-26 06:05 | RADRPT ---
EXAM DATE/TIME: 02/26/2017 05:45 [facility] COMPARISON: CHEST SINGLE AP, December 22, 2016, 2:46. INDICATIONS : Chest pain. MEDICAL HISTORY : Deep venous thrombosis. Aneurysm, abdominal. Pancreatitis.Sickle cell trait, Cardiovascular disease. Coronary artery disease SURGICAL HISTORY : Abdominal aortic aneurysm repair. Cholecystectomy.Coronary stent ENCOUNTER: Initial ACUITY: 1 day PAIN SCORE: 6/10 LOCATION: Bilateral chest FINDINGS: A single view of the chest demonstrates minimal left basilar scarring without evidence of mass, infil trate or effusion. The cardiomediastinal contours are unremarkable. Osseous structures are intact. CONCLUSION: 1. Minimal left basilar scarring. 2. Right lung is clear. Ramsey Munguia MD on February 26, 2017 at 6:04 Board Certified Radiologist. This report was verified electronically.
[2017-02-26] MEDS ORDERED: KETOROLAC TROMETHAMINE 60 MG/2 ML (IM) VIAL IM ONE (06:15)
[2017-02-26 06:21] VITALS: BP 222/105
--- NOTE | 2017-02-26 12:27 | EKG ---
Date Performed: 02/26/2017 Time Performed: 04:19:01 PTAGE: 61 years EKG: SINUS BRADYCARDIA BORDERLINE ECG PREVIOUS TRACING : 12/23/2016 19.33 Compared to prior tracing no significant change DOCTOR: Deepak Patel Interpretating Date/Time 02/26/2017 12:24:29
== END 2017-02-26 06:29 | disposition home or self-care (01) ==
LOC: NEPC 02:58
DX: M54.5 Low back pain (principal); R07.9 Chest pain, unspecified; I25.10 Atherosclerotic heart disease of native coronary artery without angina pectoris; I10 Essential (primary) hypertension; E11.9 Type 2 diabetes mellitus without complications; Z79.4 Long term (current) use of insulin; Z79.01 Long term (current) use of anticoagulants; Z79.02 Long term (current) use of antithrombotics/antiplatelets; Z79.899 Other long term (current) drug therapy; Z87.891 Personal history of nicotine dependence
CPT/HCPCS: 71010; 80048; 82550; 82552; 83735; 84484; 85025; 85610; 85730; 93005; 96372; 96374; 99285; J1885; J2270; J2360

== ENCOUNTER 2017-03-31 04:16 | Inpatient (IN) | payer OTHER, MEDICAID, MEDICARE ==
[~2017-03-31] VITALS: Ht 175.3 cm; Wt 118.5 kg
[2017-03-31] VITALS (16 sets, daily range): BP systolic 141–190; BP diastolic 82–99; PULSE 58–74; RESP 16–20; TEMP 97.7–98.9; O2SAT 93–98
[~2017-03-31 04:16] MED LIST changes: -HYDR50TA3 PO
[2017-03-31] MEDS ORDERED: SODIUM CHLORIDE 0.9% FLUSH 10 ML FLUSH IVF PRN (05:00)
[2017-03-31 05:27] LABS: APTT (PATIENT) 26.1 SEC (24.3-30.1); INTERNATIONAL NORMALIZED RATIO 0.9 RATIO; PROTHROMBIN TIME - PATIENT 10.4 SEC (9.8-11.6)
[2017-03-31 05:29] LABS: AUTOMATED NEUTROPHIL # 2.8 TH/MM3 (1.8-7.7); BASOPHIL % 0.5 % (0.0-2.0); EOSINOPHIL # 0.3 TH/MM3 (0-0.4); EOSINOPHIL % 5.1 % (0.0-4.0); HEMATOCRIT 36.5 % (39.0-51.0); HEMO FLAGS DIFF FINAL; LYMPH % 27.9 % (9.0-44.0); LYMPHOCYTE # 1.4 TH/MM3 (1.0-4.8); MEAN CELL VOLUME 77.9 FL (80.0-100.0); MEAN CORPUSCULAR HEMOGLOBIN 25.9 PG (27.0-34.0); MEAN CORPUSCULAR HGB CONC 33.3 % (32.0-36.0); MONO % 12.2 % (0.0-8.0); NEUT % 54.3 % (16.0-70.0); PLATELET COUNT 136 TH/MM3 (150-450); RED BLOOD COUNT 4.68 MIL/MM3 (4.50-5.90); WHITE BLOOD COUNT 5.2 TH/MM3 (4.0-11.0)
--- NOTE | 2017-03-31 05:49 | RADRPT ---
EXAM DATE/TIME: 03/31/2017 05:19 [facility] COMPARISON: CHEST SINGLE AP, February 26, 2017, 5:45. INDICATIONS : Midsternal chest pain MEDICAL HISTORY : Cardiovascular disease. Deep venous thrombosis. Aneurysm, abdominal. Pancreatitis SURGICAL HISTORY : Abdominal aortic aneurysm repair. Cholecystectomy.Coronary stent ENCOUNTER: Initial ACUITY: 1 day PAIN SCORE: 7/10 LOCATION: Bilateral chest FINDINGS: A single view of the chest demonstrates the lungs to be symmetrically aerated without evidence of mas s, infiltrate or effusion. The cardiomediastinal contours are unremarkable. Partial obscuration of the left heart border probably represents a prominent epicardial fat-pad. Osseous structures are inta ct. CONCLUSION: No acute cardiopulmonary process. Min Wiggins MD on March 31, 2017 at 5:47 Board Certified Radiologist. This report was verified electronically.
[2017-03-31 05:53] LABS: ANION GAP 8 MEQ/L (5-15); AST (GOT) 13 U/L (15-37); BICARBONATE 26.6 MEQ/L (21.0-32.0); BLOOD UREA NITROGEN 24 MG/DL (7-18); CHLORIDE 105 MEQ/L (98-107); GLOMERULAR FILTRATION RATE 50 ML/MIN (>89); POTASSIUM 3.4 MEQ/L (3.5-5.1); SODIUM (NA) 140 MEQ/L (136-145)
[2017-03-31 05:55] LABS: ALT (GPT) 24 U/L (12-78)
[2017-03-31 05:58] LABS: ALKALINE PHOSPHATASE 128 U/L (45-117); CREATINE KINASE 431 U/L (39-308); TOTAL BILIRUBIN ADULT 0.4 MG/DL (0.2-1.0)
[2017-03-31 06:11] LABS: CKMB 2.4 NG/ML (0.5-3.6)
[2017-03-31] MEDS ORDERED: NITROGLYCERIN 0.4 MG SL 25 TABS/BTL SL ONE (06:15)
--- NOTE | 2017-03-31 06:22 | PD ---
HPI Chief Complaint: Chest Pain Time Seen by Provider: 05:08 Travel History International Travel<30 days: No Contact w/Intl Traveler<30days: No Traveled to known affect area: No History of Present Illness HPI Patient is a 61-year-old male known to me from previous emergency department visits presents emergency Department with chest pain and left-sided chest. Mild shortness of breath no nausea no vomiting. Patient's previous ER visit with me, I had counseled him on his elevated troponin recommended that he stay for a stress test. 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 He denies any injury denies any problems getting his medications. He states the pain is tight left of his chest is been going on for the past few days and intermittent. PFSH Past Medical History Hx Anticoagulant Therapy: Yes (Eliquis) AAA: Yes (JUL 2011/ ) Anemia: Yes Arthritis: No Asthma: No Autoimmune Disease: No Blood Disorders: Yes (SICKLE CELL TRAIT) Anxiety: No Depression: No Heart Rhythm Problems: Yes Cancer: No Cardiovascular Problems: Yes ([place] stents x5, CAD, HTN) High Cholesterol: No Chemotherapy: No Chest Pain: Yes Congestive Heart Failure: No COPD: No Cerebrovascular Accident: Yes Coronary Artery Disease: Yes Diabetes: Yes (Lantus) Patient Takes Glucophage: No Diminished Hearing: No Deep Vein Thrombosis: Yes (LT LEG) Endocrine: No GERD: No Glaucoma: No Genitourinary: No Headaches: No Hepatitis: No Hiatal Hernia: No Heparin Induced Thrombocytopen: No Hypertension: Yes Immune Disorder: No Implanted Vascular Access Dvce: Yes (RIGHT INSULIN PUMP removed) Kidney Stones: No Musculoskeletal: No Neurologic: No Psychiatric: No Reproductive: No Respiratory: Yes Immunizations Current: Yes Migraines: No Myocardial Infarction: No Pancreatitis: Yes Radiation Therapy: No Renal Failure: No Seizures: No Sickle Cell Disease: Yes (TRAIT) Sleep Apnea: No Thyroid Disease: No Ulcer: No Tetanus Vaccination: < 5 Years Influenza Vaccination: Yes PNEUMOCCOCAL Vaccine (Year): 3 Past Surgical History Abdominal Aneurysm Repair: Yes (2012) Abdominal Surgery: Yes AICD: No Appendectomy: No Arteriovenous Shunt: No Body Medical Devices: STENTS X 4 Cardiac Surgery: Yes (stent) Cholecystectomy: Yes Coronary Artery Bypass Graft: No Coronary Stent: Yes (2009 X 2, 2010 X2) Ear Surgery: No Endocrine Surgery: No Eye Surgery: No Genitourinary Surgery: No Gynecologic Surgery: No Insulin Pump: Yes (removed) Joint Replacement: Yes (LEFT HIP 1999) Neurologic Surgery: No Oral Surgery: No Pacemaker: No Thoracic Surgery: No Other Surgery: Yes (Stent placement x 2; GB REMOVED) Social History Alcohol Use: No Tobacco Use: No (QUIT 2005) Substance Use: No Allergies-Medications (Allergen,Severity, Reaction): Coded Allergies: benazepril (Verified Allergy, Severe, ANGIOEDEMA, 03/31/17) captopril (Verified Allergy, Severe, ANGIOEDEMA, 03/31/17) enalaprilat (Verified Allergy, Severe, 03/31/17) ANGIOEDEMA fosinopril (Verified Allergy, Severe, ANGIOEDEMA, 03/31/17) lisinopril (Verified Allergy, Severe, ANGIOEDEMA, 03/31/17) quinapril (Verified Allergy, Severe, ANGIOEDEMA, 03/31/17) hydromorphone (Verified Adverse Reaction, Intermediate, ITCHING, 03/31/17) Reported Meds & Prescriptions Reported Meds & Active Scripts Active Nifedipine ER (Nifedipine) 90 Mg Tab 90 Mg PO DAILY Hydralazine (Hydralazine HCl) 100 Mg Tab 100 Mg PO Q8H Lantus Inj (Insulin Glargine) 1,000 Unit/10 Ml Vial 75 Units SQ BID 30 Days Cardura (Doxazosin Mesylate) 2 Mg Tab 2 Mg PO DAILY Isosorbide Mononitrate ER (Isosorbide Mononitrate) 60 Mg Tab 60 Mg PO DAILY@07 Cozaar (Losartan Potassium) 50 Mg Tab 100 Mg PO DAILY Plavix (Clopidogrel Bisulfate) 75 Mg Tab 75 Mg PO DAILY Lipitor (Atorvastatin Calcium) 40 Mg Tab 80 Mg PO DAILY Reported Eliquis (Apixaban) 5 Mg Tab 5 Mg PO BID Zetia (Ezetimibe) 10 Mg Tab 10 Mg PO DAILY Neupro Patch 24 HR (Rotigotine Patch 24 HR) 3 Mg/24 Hr Patch 3 Mg T-DERMAL DAILY Klonopin (Clonazepam) 2 Mg Tab 2 Mg PO BID Aspirin 81 Mg Chew 81 Mg CHEW DAILY Orphenadrine ER 12 HR (Orphenadrine Citrate) 100 Mg Tab 100 Mg PO BID Ambien (Zolpidem Tartrate) 10 Mg Tab 10 Mg PO HS PRN Novolin R Inj (Insulin Human Regular) 1,000 Unit/10 Ml Vial 0 SQ TIDACHS Sliding Scale As Directed. Nitroglycerin SL (Nitroglycerin) 0.4 Mg Subl 0.4 Mg SL DIRECTED PRN ONE TABLET UNDER THE TONGUE NEEDED FOR CHEST PAIN, MAY REPEAT EVERY FIVE MINUTES FOR A TOTAL OF 3 DOSES OR CALL 911 IF NO RELIEF Lortab (Hydrocodone-Acetaminophen) 10-325 Mg Tab 1 Tab PO Q4H PRN K-Tab (Potassium Chloride) 20 Meq Tab 20 Meq PO DAILY Coreg (Carvedilol) 25 Mg Tab 25 Mg PO BID Gabapentin 800 Mg Tab 800 Mg PO TID Review of Systems Except as stated in HPI: all other systems reviewed are Neg Physical Exam Narrative GENERAL: Well-developed well-nourished, morbidly obese comfortable-appearing male.] SKIN: Focused skin assessment warm/dry. HEAD: Atraumatic. Normocephalic. EYES: Pupils equal and round. No scleral icterus. No injection or drainage. ENT: No nasal bleeding or discharge. Mucous membranes pink and moist. NECK: Trachea midline. No JVD. CARDIOVASCULAR: Regular rate and rhythm. No murmur appreciated. 2+ but equal pulses in all 4 extremities. RESPIRATORY: No accessory muscle use. Clear to auscultation. Breath sounds equal bilaterally. GASTROINTESTINAL: Abdomen soft, non-tender, nondistended. Hepatic and splenic margins not palpable. MUSCULOSKELETAL: No obvious deformities. No clubbing. No cyanosis. No edema. NEUROLOGICAL: Awake and alert. No obvious cranial nerve deficits. Motor grossly within normal limits. Normal speech. PSYCHIATRIC: Appropriate mood and affect; insight and judgment normal. Data Data Last Documented VS Vital Signs Date Time Temp Pulse Resp B/P (MAP) Pulse Ox O2 Delivery O2 Flow Rate FiO2 03/31/17 07:30 97.7 61 20 190/95 (126) 96 Room Air Orders Orders Electrocardiogram (03/31/17 04:53) Ckmb (Isoenzyme) Profile (03/31/17 04:53) Complete Blood Count With Diff (03/31/17 04:53) Comprehensive Metabolic Panel (03/31/17 04:53) Magnesium (Mg) (03/31/17 04:53) Prothrombin Time / Inr (Pt) (03/31/17 04:53) Act Partial Throm Time (Ptt) (03/31/17 04:53) Troponin I (03/31/17 04:53) Lipase (03/31/17 04:53) Chest, Single Ap (03/31/17 04:53) Ecg Monitoring (03/31/17 04:53) Iv Access Insert/Monitor (03/31/17 04:53) Oximetry (03/31/17 04:53) Oxygen Administration (03/31/17 04:53) Sodium Chloride 0.9% Flush (Ns Flush) (03/31/17 05:00) CKMB (03/31/17 05:01) CKMB% (03/31/17 05:01) Nitroglycerin Sl (Nitrostat Sl) (03/31/17 06:15) Orphenadrine Inj (Norflex Inj) (03/31/17 07:00) Morphine Inj (Morphine Inj) (03/31/17 07:00) Ondansetron Inj (Zofran Inj) (03/31/17 07:00) Admit Order (Ed Use Only) (03/31/17 ) Labs Laboratory Tests Test 03/31/17 05:01 White Blood Count 5.2 TH/MM3 Red Blood Count 4.68 MIL/MM3 Hemoglobin 12.1 GM/DL Hematocrit 36.5 % Mean Corpuscular Volume 77.9 FL Mean Corpuscular Hemoglobin 25.9 PG Mean Corpuscular Hemoglobin Concent 33.3 % Red Cell Distribution Width 17.0 % Platelet Count 136 TH/MM3 Mean Platelet Volume 8.6 FL Neutrophils (%) (Auto) 54.3 % Lymphocytes (%) (Auto) 27.9 % Monocytes (%) (Auto) 12.2 % Eosinophils (%) (Auto) 5.1 % Basophils (%) (Auto) 0.5 % Neutrophils # (Auto) 2.8 TH/MM3 Lymphocytes # (Auto) 1.4 TH/MM3 Monocytes # (Auto) 0.6 TH/MM3 Eosinophils # (Auto) 0.3 TH/MM3 Basophils # (Auto) 0.0 TH/MM3 CBC Comment DIFF FINAL Differential Comment Prothrombin Time 10.4 SEC Prothromb Time International Ratio 0.9 RATIO Activated Partial Thromboplast Time 26.1 SEC Blood Urea Nitrogen 24 MG/DL Creatinine 1.71 MG/DL Random Glucose 195 MG/DL Total Protein 6.9 GM/DL Albumin 3.0 GM/DL Calcium Level 8.5 MG/DL Magnesium Level 2.0 MG/DL Alkaline Phosphatase 128 U/L Aspartate Amino Transf (AST/SGOT) 13 U/L Alanine Aminotransferase (ALT/SGPT) 24 U/L Total Bilirubin 0.4 MG/DL Sodium Level 140 MEQ/L Potassium Level 3.4 MEQ/L Chloride Level 105 MEQ/L Carbon Dioxide Level 26.6 MEQ/L Anion Gap 8 MEQ/L Estimat Glomerular Filtration Rate 50 ML/MIN Total Creatine Kinase 431 U/L Creatine Kinase MB 2.4 NG/ML Creatine Kinase MB % 0.6 % Troponin I 0.09 NG/ML Lipase 121 U/L MDM Medical Decision Making Medical Screen Exam Complete: Yes Emergency Medical Condition: Yes Differential Diagnosis ACS, AMI, chronic cardiomyopathy, elevated blood pressure. Narrative Course Patient 61-year-old male presents emergency department for evaluation of chest pain. Known to me from previous ER visits. He does have a chronically elevated troponin. Patient states his chest is hurting more severe than usual. EKG was reassuring, troponin elevated to 0.09. On previous encounters with him he usually wants to leave the hospital and signs out AMA. Today he would like to stay to be evaluated. He was given Norflex and morphine her his request. He is followed by Dr. Brooks. He is oriented taken an aspirin today. Diagnosis Primary Impression: Chest pain Admitting Information Admitting Physician Requests: Observation Condition: Stable Willie Gamble MD Mar 31, 2017 06:22
[2017-03-31] MEDS ORDERED: MORPHINE SULFATE 4 MG/ML INJ IV PUSH ONE ×2 (07:00→21:00)
[2017-03-31] MEDS ORDERED: ONDANSETRON HCL 4 MG/2 ML VIAL IV PUSH ONE (07:00)
[2017-03-31] MEDS ORDERED: ORPHENADRINE INJ 60 MG/2 ML AMP IM ONE (07:00)
[2017-03-31] MEDS ORDERED: NALOXONE HCL 0.4 MG/ML AMP IV PUSH PRN (07:45)
[2017-03-31] MEDS ORDERED: MAGNESIUM HYDROXIDE SUSP 30 ML CUP PO PRN (07:45)
[2017-03-31] MEDS ORDERED: LACTULOSE SYRUP 20 GM/30 ML CUP PO PRN (07:45)
[2017-03-31] MEDS ORDERED: SODIUM CHLORIDE 0.9% FLUSH 10 ML FLUSH IV FLUSH PRN (07:45)
[2017-03-31] MEDS ORDERED: BISACODYL 10 MG SUPP RECTAL PRN (07:45)
[2017-03-31] MEDS ORDERED: DEXTROSE 50% IN WATER 50 ML VIAL(D50) IV PRN (07:45)
[2017-03-31] MEDS ORDERED: ONDANSETRON HCL 4 MG/2 ML VIAL IVP PRN (07:45)
[2017-03-31] MEDS ORDERED: ZOLPIDEM TARTRATE 10 MG TAB PO PRN (07:45)
[2017-03-31] MEDS ORDERED: PROCHLORPERAZINE 25 MG SUPP RECTAL PRN (07:45)
[2017-03-31] MEDS ORDERED: SENNOSIDES 8.6 MG TAB PO PRN (07:45)
[2017-03-31] MEDS ORDERED: ACETAMINOPHEN 325 MG TAB PO PRN (07:45)
[2017-03-31] MEDS ORDERED: GLUCAGON 1 MG/ML VIAL OTHER PRN (07:45)
--- NOTE | 2017-03-31 08:38 | HHI.HP ---
[facility] Primary Care Physician Jhonathan Harris MD Admission Diagnosis Chest Pain Diagnoses: (1) Chest pain Chief Complaint: Chest pain Travel History International Travel<30 Days: No Contact w/Intl Traveler <30 Da: No Traveled to Known Affected Are: No History of Present Illness Written by Rubi Juarez, acting as scribe for Dr. London on 03/31/17 at 08:21. Mr. William is a 61-year-old male patient with unknown medical history of sickle cell trait, CAD with MO, diabetes mellitus, hypertension, hyperlipidemia who presented to the ED with complaints of chest pain. Patient states that around 0400 he was awoken by a pressure-like chest pain, 8/10 on pain scale, located in his left chest, denies any radiation of pain to neck or back, lasting a few minutes and intermittently coming and going. Denies any recognizable aggravating or relieving factors. Patient states he did try Nitroglycerin x 2 under his tongue with no relief. Denies any associated symptoms including diaphoresis, nausea or vomiting. Denies any recent illness including any fever, chills, cough, shortness of breath, ab pain, nausea, vomiting, diarrhea, or dysuria. Currently the pain is a 6/10 on pain scale, pressure like in nature, unrelieved fully by medication, intermittent. Patient states he was here one month ago and presented to the ED with similar symptoms. PCP is Dr. Fernandez, Automobile Salesman is Dr. Borges who were both seen by patient 2 weeks ago. Patient states last cardiac cath was last year, last stress test on this July 2016, and last ECHO is July. Review of Systems Except as stated in HPI: all other systems reviewed are Neg Past Family Social History Past Medical History Sickle cell trait Anemia CAD with history of MO and stents 5 on Plavix hypertension History of Left leg DVT on our requests Diabetes mellitus AAA Noncompliance Chronic pain Past Surgical History AAA repair 2012 Cardiac stent placement Left hip replacement Cholecystectomy Insulin pump removal Femoral-popliteal bypass Reported Medications Active Nifedipine ER (Nifedipine) 90 Mg Tab 90 Mg PO DAILY Hydralazine (Hydralazine HCl) 100 Mg Tab 100 Mg PO Q8H Lantus Inj (Insulin Glargine) 1,000 Unit/10 Ml Vial 75 Units SQ BID 30 Days Cardura (Doxazosin Mesylate) 2 Mg Tab 2 Mg PO DAILY Isosorbide Mononitrate ER (Isosorbide Mononitrate) 60 Mg Tab 60 Mg PO DAILY@07 Cozaar (Losartan Potassium) 50 Mg Tab 100 Mg PO DAILY Plavix (Clopidogrel Bisulfate) 75 Mg Tab 75 Mg PO DAILY Lipitor (Atorvastatin Calcium) 40 Mg Tab 80 Mg PO DAILY Reported Eliquis (Apixaban) 5 Mg Tab 5 Mg PO BID Zetia (Ezetimibe) 10 Mg Tab 10 Mg PO DAILY Neupro Patch 24 HR (Rotigotine Patch 24 HR) 3 Mg/24 Hr Patch 3 Mg T-DERMAL DAILY Klonopin (Clonazepam) 2 Mg Tab 2 Mg PO BID Aspirin 81 Mg Chew 81 Mg CHEW DAILY Orphenadrine ER 12 HR (Orphenadrine Citrate) 100 Mg Tab 100 Mg PO BID Ambien (Zolpidem Tartrate) 10 Mg Tab 10 Mg PO HS PRN Novolin R Inj (Insulin Human Regular) 1,000 Unit/10 Ml Vial 0 SQ TIDACHS Sliding Scale As Directed. Nitroglycerin SL (Nitroglycerin) 0.4 Mg Subl 0.4 Mg SL DIRECTED PRN ONE TABLET UNDER THE TONGUE NEEDED FOR CHEST PAIN, MAY REPEAT EVERY FIVE MINUTES FOR A TOTAL OF 3 DOSES OR CALL 911 IF NO RELIEF Lortab (Hydrocodone-Acetaminophen) 10-325 Mg Tab 1 Tab PO Q4H PRN K-Tab (Potassium Chloride) 20 Meq Tab 20 Meq PO DAILY Coreg (Carvedilol) 25 Mg Tab 25 Mg PO BID Gabapentin 800 Mg Tab 800 Mg PO TID Allergies: Coded Allergies: benazepril (Verified Allergy, Severe, ANGIOEDEMA, 03/31/17) captopril (Verified Allergy, Severe, ANGIOEDEMA, 03/31/17) enalaprilat (Verified Allergy, Severe, 03/31/17) ANGIOEDEMA fosinopril (Verified Allergy, Severe, ANGIOEDEMA, 03/31/17) lisinopril (Verified Allergy, Severe, ANGIOEDEMA, 03/31/17) quinapril (Verified Allergy, Severe, ANGIOEDEMA, 03/31/17) hydromorphone (Verified Adverse Reaction, Intermediate, ITCHING, 03/31/17) Active Ordered Medications Current Medications Medications (Trade) Dose Ordered Sig/Conchita Route Start Time Stop Time Status Last Admin (NS Flush) 2 ml UNSCH PRN IVF 03/31/17 05:00 (NS Flush) 2 ml UNSCH PRN IV FLUSH 03/31/17 07:45 UNV (NS Flush) 2 ml BID IV FLUSH 03/31/17 09:00 UNV (Tylenol) 650 mg Q4H PRN PO 03/31/17 07:45 UNV (Zofran Inj) 4 mg Q6H PRN IVP 03/31/17 07:45 UNV (Compazine Supp) 25 mg Q12H PRN TN 03/31/17 07:45 UNV (Narcan Inj) 0.4 mg UNSCH PRN IV PUSH 03/31/17 07:45 UNV (Sobeida-Colace) 1 tab BID PO 03/31/17 09:00 UNV (Milk Of Magnesia Liq) 30 ml Q12H PRN PO 03/31/17 07:45 UNV (Senokot) 17.2 mg Q12H PRN PO 03/31/17 07:45 UNV (Dulcolax Supp) 10 mg DAILY PRN RECTAL 03/31/17 07:45 UNV (Lactulose Liq) 30 ml DAILY PRN PO 03/31/17 07:45 UNV (Eliquis) 5 mg BID PO 03/31/17 09:00 UNV (Aspirin Chew) 81 mg DAILY CHEW 03/31/17 09:00 UNV (Lipitor) 80 mg DAILY PO 03/31/17 09:00 UNV (Coreg) 25 mg BID PO 03/31/17 09:00 UNV (KlonoPIN) 2 mg BID PO 03/31/17 09:00 UNV (Plavix) 75 mg DAILY PO 03/31/17 09:00 UNV (Cardura) 2 mg DAILY PO 03/31/17 09:00 UNV (Zetia) 10 mg DAILY PO 03/31/17 09:00 UNV (Neurontin) 800 mg TID PO 03/31/17 09:00 UNV (Apresoline) 100 mg Q8H PO 03/31/17 07:45 UNV (Macon 10-325 Mg) 1 tab Q4H PRN PO 03/31/17 07:45 UNV (Imdur) 60 mg DAILY@07 PO 04/01/17 07:00 UNV (Cozaar) 100 mg DAILY PO 03/31/17 09:00 UNV (Procardia Xl) 90 mg DAILY PO 03/31/17 09:00 UNV (Norflex Cr) 100 mg BID PO 03/31/17 09:00 UNV (KCl) 20 meq DAILY PO 03/31/17 09:00 UNV (Ambien) 10 mg HS PRN PO 03/31/17 07:45 UNV Non-Formulary Medication 3 mg DAILY T-DERMAL 03/31/17 09:00 UNV Potassium Chloride 100 ml @ 50 mls/hr Q2H IV 03/31/17 07:45 03/31/17 11:44 UNV (D50w (Vial) Inj) 50 ml UNSCH PRN IV 03/31/17 07:45 UNV (Glucagon Inj) 1 mg UNSCH PRN OTHER 03/31/17 07:45 UNV (NovoLOG SUPPLEMENTAL SCALE) 1 ACHS SLIDING SCALE SQ 03/31/17 08:00 UNV Sodium Chloride 1,000 ml @ 75 mls/hr [id number] IV 03/31/17 08:00 UNV Family History No significant family medical history of cardiovascular disease, diabetes or cancer. Social History Denies any present tobacco use, states he is smoking since 2005. Denies any alcohol use. Physical Exam Vital Signs Vital Signs Date Time Temp Pulse Resp B/P (MAP) Pulse Ox O2 Delivery O2 Flow Rate FiO2 03/31/17 07:49 96 03/31/17 07:30 97.7 61 20 190/95 (126) 96 Room Air 03/31/17 07:30 61 20 96 Room Air 03/31/17 04:59 18 97 Room Air 03/31/17 04:59 97 Room Air 03/31/17 04:52 59 18 175/82 (113) 97 Aerosol Mask 03/31/17 04:18 97.9 60 20 159/92 (114) 98 Room Air Physical Exam GENERAL: This is a well-nourished, well-developed patient, in no apparent distress. SKIN: No rashes, ecchymoses or lesions. Cool and dry. HEAD: Atraumatic. Normocephalic. No temporal or scalp tenderness. EYES: Pupils equal round and reactive. Extraocular motions intact. No scleral icterus. No injection or drainage. ENT: Nose without bleeding, purulent drainage or septal hematoma. Throat without erythema, tonsillar hypertrophy or exudate. Uvula midline. Airway patent. NECK: Trachea midline. No JVD or lymphadenopathy. Supple, nontender, no meningeal signs. CARDIOVASCULAR: Regular rate and rhythm without murmurs, gallops, or rubs. RESPIRATORY: Clear to auscultation. Breath sounds equal bilaterally. No wheezes , rales, or rhonchi. GASTROINTESTINAL: Abdomen soft, non-tender, nondistended. No hepato-splenomegaly , or palpable masses. No guarding. MUSCULOSKELETAL: Extremities without clubbing, cyanosis, or edema. No joint tenderness, effusion, or edema noted. No calf tenderness. Negative Homans sign bilaterally. NEUROLOGICAL: Awake and alert. Cranial nerves II through XII intact. Motor and sensory grossly within normal limits. Five out of 5 muscle strength in all muscle groups. Normal speech. Laboratory Laboratory Tests Test 03/31/17 05:01 White Blood Count 5.2 Red Blood Count 4.68 Hemoglobin 12.1 Hematocrit 36.5 Mean Corpuscular Volume 77.9 Mean Corpuscular Hemoglobin 25.9 Mean Corpuscular Hemoglobin Concent 33.3 Red Cell Distribution Width 17.0 Platelet Count 136 Mean Platelet Volume 8.6 Neutrophils (%) (Auto) 54.3 Lymphocytes (%) (Auto) 27.9 Monocytes (%) (Auto) 12.2 Eosinophils (%) (Auto) 5.1 Basophils (%) (Auto) 0.5 Neutrophils # (Auto) 2.8 Lymphocytes # (Auto) 1.4 Monocytes # (Auto) 0.6 Eosinophils # (Auto) 0.3 Basophils # (Auto) 0.0 CBC Comment DIFF FINAL Differential Comment Prothrombin Time 10.4 Prothromb Time International Ratio 0.9 Activated Partial Thromboplast Time 26.1 Blood Urea Nitrogen 24 Creatinine 1.71 Random Glucose 195 Total Protein 6.9 Albumin 3.0 Calcium Level 8.5 Magnesium Level 2.0 Alkaline Phosphatase 128 Aspartate Amino Transf (AST/SGOT) 13 Alanine Aminotransferase (ALT/SGPT) 24 Total Bilirubin 0.4 Sodium Level 140 Potassium Level 3.4 Chloride Level 105 Carbon Dioxide Level 26.6 Anion Gap 8 Estimat Glomerular Filtration Rate 50 Total Creatine Kinase 431 Creatine Kinase MB 2.4 Creatine Kinase MB % 0.6 Troponin I 0.09 Lipase 121 Result Diagram: 03/31/17 0501 03/31/17 0501 Carmen VTE Risk Assessment Carmen VTE Risk Assessment: No/Low Risk (score <= 1) Carmen Risk Assessment Model Point Value = 1 Point Value = 2 Point Value = 3 Point Value = 5 Age 41-60 Minor surgery BMI > 25 kg/m2 Swollen legs Varicose veins or History of unexplained or recurrent spontaneous Oral contraceptives or hormone replacement Sepsis (< 1 month) Serious lung disease, including pneumonia (< 1 month) Abnormal pulmonary function Acute myocardial infarction Congestive heart failure (< 1 month) History of inflammatory bowel disease Medical patient at bed rest Age 61-74 Arthroscopic surgery Major open surgery (> 45 min) Laparoscopic surgery (> 45 min) Malignancy Confined to bed (> 72 hours) Immobilizing plaster cast Central venous access Age >= 75 History of VTE Family history of VTE Factor V Leiden Prothrombin [id number] Lupus anticoagulant Anticardiolipin antibodies Elevated serum homocysteine Heparin-induced thrombocytopenia Other congenital or acquired thrombophilia Stroke (< 1 month) Elective arthroplasty Hip, pelvis, or leg fracture Acute spinal cord injury (< 1 month) Prophylaxis Regimen Total Risk Factor Score Risk Level Prophylaxis Regimen 0-1 Low Early ambulation 2 Moderate Order ONE of the following: *Sequential Compression Device (SCD) *Heparin 5000 units SQ BID 3-4 Higher Order ONE of the following medications: *Heparin 5000 units SQ TID *Enoxaparin/Lovenox 40 mg SQ daily (WT < 150 kg, CrCl > 30 mL/min) *Enoxaparin/Lovenox 30 mg SQ daily (WT < 150 kg, CrCl > 10-29 mL/min) *Enoxaparin/Lovenox 30 mg SQ BID (WT < 150 kg, CrCl > 30 mL/min) AND/OR *Sequential Compression Device (SCD) 5 or more Highest Order ONE of the following medications: *Heparin 5000 units SQ TID (Preferred with Epidurals) *Enoxaparin/Lovenox 40 mg SQ daily (WT < 150 kg, CrCl > 30 mL/min) *Enoxaparin/Lovenox 30 mg SQ daily (WT < 150 kg, CrCl > 10-29 mL/min) *Enoxaparin/Lovenox 30 mg SQ BID (WT < 150 kg, CrCl > 30 mL/min) AND *Sequential Compression Device (SCD) Assessment and Plan Assessment and Plan Mr. William is a 61-year-old male patient with unknown medical history of sickle cell trait, CAD with MO, diabetes mellitus, hypertension, hyperlipidemia who presented to the ED with complaints of chest pain. Patient states that around 0400 he was awoken by a pressure-like chest pain, 8/10 on pain scale, located in his left chest, denies any radiation of pain to neck or back, lasting a few minutes and intermittently coming and going. Chest pain Elevated troponin - Troponin 0.09, total creatinine clearance 431. We'll trend serial troponins and EKGs. Follow -EKG reviewed, showing sinus bradycardia, no arrhythmias, no ST elevation or changes. - Chest x-ray reviewed, showing no acute cardiopulmonary process. - Given morphine in NAD and nitroglycerin sublingual and EGD. - Consult placed to cardiology, appreciate input. Patient does see Dr. Brooks in the outpatient setting. - Patient seen by Dr. Soriano who is planning on performing a heart catheterization this morning. - Last echocardiogram was in 07/2016 showing mild LVH, with an EF of 60-65%. Hypertension, acute on chronic: Systolic Blood pressure in the 190s. Patient on multiple BP meds, continue home Cardura, hydralazine, Imdur, losartan, nifedipine. Will add hydralazine IV. Continue to monitor closely. Hypokalemia: K3.4, replacement ordered. Follow BMP. Type 2 diabetes mellitus, chronic: Random glucose upon presentation 195. Accu- Chek before meals and at bedtime, sliding scale insulin, cover as needed. Acute kidney injury: Creatinine 1.71 on presentation. Unknown baseline. We'll follow BMP. History of Coronary artery disease with history of MO and stent placement: Continue carvedilol and Plavix Hyperlipidemia, chronic: Continue home atorvastatin and Zetia. Obstructive sleep apnea, chronic: Encouraged patient to have bring in CPAP machine for overnight. History of DVT DVT prophylaxis - SCDs/Continue Eliquis. This note was transcribed by WYATT Gomes. I, Dr. Lani London personally performed the history, physical exam, and medical decision making; and confirmed the accuracy of the information in the transcribed note. Authenticated by Dr. Lani London on 03/31/17 at 08:21. Discussed Condition With Discussed condition with ER doctor, bedside nurse Records reviewed in EMR Physician Certification 2 Midnight Certification Type: Admission for Inpatient Services Order for Inpatient Services The services are ordered in accordance with Medicare regulations or non- Medicare payer requirements, as applicable. In the case of services not specified as inpatient-only, they are appropriately provided as inpatient services in accordance with the 2-midnight benchmark. Estimated LOS (days): 2 2 days is the estimated time the patient will need to remain in the hospital, assuming treatment plan goals are met and no additional complications. Post-Hospital Plan: Home Rubi Juarez Mar 31, 2017 08:38 Lani London MD Mar 31, 2017 13:49
[2017-03-31] MEDS: NIFEdipine 90 MG SUSTAINED RELEASE TAB PO SCH (09:00)
[2017-03-31] MEDS: GABAPENTIN 400 MG CAP PO SCH ×3 (09:00→17:11)
[2017-03-31] MEDS: DOCUSATE SODIUM 50 MG/SENNA 8.6 MG TAB PO SCH ×2 (09:45→20:58)
[2017-03-31] MEDS: INSULIN ASPART SUPPLEMENTAL SCALE SQ SCH ×4 (09:45→23:17)
[2017-03-31] MEDS ORDERED: ROTIGOTINE TOPICAL SCH (10:00)
[2017-03-31] MEDS: POTASSIUM CHLOR 20 MEQ PREMIX 100 ML IV SCH ×2 (10:00→12:00)
[2017-03-31] MEDS ORDERED: SODIUM CHLOR 0.9% 1000 ML INJ 1,000 ML IV SCH (10:00)
[2017-03-31] MEDS: DOXAZOSIN MESYLATE 2 MG TAB PO SCH (10:00)
[2017-03-31] MEDS: POTASSIUM CHLORIDE 20 MEQ CONTROLLED RELEASE TAB PO SCH (10:26)
[2017-03-31] MEDS: CLOPIDOGREL 75 MG TAB PO SCH (10:27)
[2017-03-31] MEDS: ASPIRIN 81 MG CHEW TAB CHEW SCH (10:27)
[2017-03-31] MEDS: ATORVASTATIN 80 MG TAB PO SCH (11:21)
[2017-03-31] MEDS: hydrALAZINE HCL 100 MG TAB PO SCH ×2 (11:21→17:36)
[2017-03-31] MEDS: EZETIMIBE 10 MG TAB PO SCH (11:22)
[2017-03-31] MEDS: clonazePAM 1 MG TAB PO SCH ×2 (11:22→23:15)
[2017-03-31] MEDS: LOSARTAN 50 MG TAB PO SCH (11:22)
[2017-03-31] MEDS: CARVEDILOL 12.5 MG TAB PO SCH ×2 (11:22→20:59)
[2017-03-31] MEDS: SODIUM CHLORIDE 0.9% FLUSH 10 ML FLUSH IV FLUSH SCH ×2 (11:27→20:59)
[2017-03-31] MEDS ORDERED: HEPARIN-NS/PF INJ 1,000 ML ONE (11:37)
[2017-03-31] MEDS ORDERED: SODIUM CHLORID 0.9% 500 ML INJ 500 ML ONE (11:38)
[2017-03-31] MEDS ORDERED: HEPARIN SODIUM - IV 10,000 UNITS/10 ML VIAL ONE (11:39)
[2017-03-31] MEDS ORDERED: VERAPAMIL HCL 5 MG/2 ML VIAL ONE (11:40)
--- NOTE | 2017-03-31 11:41 | EKG ---
Date Performed: 03/31/2017 Time Performed: 04:29:24 PTAGE: 61 years EKG: SINUS BRADYCARDIA BORDERLINE ECG Compared to prior tracing no significant change PREVIOUS TRACING : 02/26/2017 04.19 DOCTOR: Logan Hutson Interpretating Date/Time 03/31/2017 11:39:38
[2017-03-31] MEDS ORDERED: MIDAZOLAM HCL 2 MG/2 ML VIAL ONE (11:50)
[2017-03-31 12:09] LABS: CKMB 2.4 NG/ML (0.5-3.6)
--- NOTE | 2017-03-31 12:36 | CATHPROC ---
[employer] HIS Report Study Information Study Number Admission Scheduled Start Study Start [id number] Mar 31 2017 7:42AM 03/31/2017 Mar 31 2017 11:17AM [facility] Cardiac Catheterization Admit Source Facility Department Emergency department [facility] - Fashion Director Party Plan Sales Physician and Clinical Staff Initial Dilip Albert Cloth Coverer Alli Rodriguez,BALTA Cloth Coverer Juan Galdamez,BALTA Recorder Nilesh Schwartz,RT(R) Scrub Broderick Hawkins RCIS(BS) Procedures Performed Procedure Location (Site) Vessel Name Coronary Angiograms LCA Left Coronary Coronary Angiograms RCA Right Coronary L Heart Cath Equipment Time Core Composer Feeder Description Size Mfg Part Number Used/Scraped TRANSDUCER, TRUWAVE [id number] 11:29 PARRISH MARTINO * Used W/STOCKCOCK *[id number] *[id number] [id number] *[id number] 11:29 [employer]ill PACK, CCL CUSTOM * Used *[id number] 11:29 [employer] SUPPORT, ARTERIAL ADULT [id number] *[id number] Used BAND, RADIAL COMPRESSION TR [id number] 12:16 Axium Nanofibers 29CM Used LARGE 29 *[id number] SHEATH, FR6 RADIAL PRELUDE 12:06 [employer]ium Nanofibers FR 6 [id number] Used EASE 11CM [id number] 11:29 [employer]ers WIRE, EXCHANGE 260CM 3MMJ 260CM Used *[id number] 11:29 NAMIC MANIFOLD, 4 PORT * Used *[id number] 11:29 NYCOMED OMNIPAQUE, 350 MG, 150ML 150ML [id number] Used [id number] 11:29 LECKRONE MEDICAL BLANKET,WARM AIR CCL * Used *[id number] SHEATH, FR6 TRANSRADIAL RM*[id number] 11:29 Firetide FR 6 Used SLENDER 10CM *[id number] History: Allergies Allergy Reaction DAWIT Inhibitors ANGIOEDEMA Clonidine DRY MOUTH Dilaudid ITCHING Vasotec captopril ANGIOEDEMA lisinopril ANGIOEDEMA benazepril ANGIOEDEMA quinapril ANGIOEDEMA fosinopril ANGIOEDEMA hydromorphone ITCHING enalaprilat History: Risk Factors Family History of Hypertension Dyslipidemia Previous OR Previous Heart Failure Premature CAD Yes Yes Yes Yes No Prior Valve Prior PCI Prior CABG Surgery No Yes No Cerebrovascular Peripheral Artery Chronic Lung On Dialysis Diabetes Diabetes Therapy Disease Disease Disease No Yes No No Yes Insulin History: Stress Tests Stress or Imaging Studies Performed No Labs Hgb (g/dl) Hct (%) WBC (l/cumm) Platelets (thousands) 11.60-17.00 35.00-51.00 4.00-11.00 150.00-450.00 12.1 36.5 5.2 136 Glucose (mg/dl) BUN (mg/dl) Creatinine (mg/dl) BUN:Creatinine (1:x) 74.00-106.00 7.00-18.00 0.50-1.30 10.00-20.00 195 24 1.7 14.1 Na (meq/l) K (meq/l) 136.00-145.00 3.50-5.10 140 3.4 INR (PTT:PT) 0.90-1.10 0.9 Troponin I (ng/ml) CPK-MB (ng/ML) 0.02-0.05 0.50-3.60 0.09 Not Drawn Medication Medication Total Dose (Bolus/Oral) Medication Total Dosage/Unit 1% XYLOCAINE 5 mL FENTANYL 25 mcg VERSED 0.5 mg Medications (Bolus/Oral) Medication Time Given Dosage/Unit Administered By Reason VERSED 03/31/2017 12:00:18 PM 0.5 mg Juan Galdamez 0.5 mg VERSED given in lab by Juan Gladamez, BALTA in Right Antecubital via Peripheral IV. Ordered by Dilip Bravo. FENTANYL 03/31/2017 12:01:40 PM 25 mcg Juan Galdamez 25 mcg FENTANYL given in lab by Juan Galdamez, BALTA in Right Antecubital via Peripheral IV. Ordered by Dilip Soriano. 1% XYLOCAINE 03/31/2017 12:03:58 PM 5 mL Dilip Soriano 5 mL 1% XYLOCAINE given in lab by Dilip Soriano in Right Radial via Subcutaneous. Ordered by Dilip Qiu. Medication (Drip) Medication Time Given Dosage/Unit Concentration/Unit Diluent (ml) Solution IV Solutions 03/31/2017 11:46:31 AM 0 mL (IV) 500 NaCl .9 Patient arrived on IV Solutions given by Dilip Soriano in Right Antecubital via Peripheral IV. Pu mp/Drip Flow = 20 ml/hr using NaCl .9. Ordered by Dilip oSriano. Initial Case Assessment Cardiovascular HR Rhythm NIBP Chest Pain 53 sr 173/85 0 Edema Present Skin color Skin None Normal Warm Dry Circulatory - Right Pulses Dorsalis Pedis Femoral Radial 1 1 1 Scale (0,1,2,3,4,d) Circulatory - Left Pulses Dorsalis Pedis Femoral Radial 1 1 Scale (0,1,2,3,4,d) Final Case Assessment Cardiovascular HR Rhythm NIBP Chest Pain 70 sr 187/92 0 Edema Present Skin color Skin None Normal Warm Dry Circulatory - Right Pulses Dorsalis Pedis Femoral Radial 1 1 1 Scale (0,1,2,3,4,d) Circulatory - Left Pulses Dorsalis Pedis Femoral Radial 1 1 Scale (0,1,2,3,4,d) Neurological State Oriented to time-place- Alert Moves all extremities person Respiration - General Respiration Rate SpO2 (%) O2 (lpm) (B/min) 18 98 0 Chronological Log Time Study Chronological Log 11:31:57 Patient arrived via Bed. Positive Allens test performed by Alli Rodriguez rn. 11:31:59 Patient Name, D.O.B, / Armband Verified By R.N. 11:32:00 Consent signed by the physician and the patient and verified by the Fashion Director Party Plan Sales staff. 11:32:02 Pre-op and post- op instructions given; patient acknowledges understanding of instructions. Vitals capture started with the following parameters, Patient=Adult, Interval=5 min, Initial Pr rctayr=964 mmHg, 11:40:33 Deflation Rate=5 mmHg, Cuff placed on Left Arm 11:42:39 HR=58 bpm, IFUC=179/87 mmhg, SpO2=94.0 %, Resp=13 B/min, Keyes=2 11:45:09 Verbal Stimulation=2 Physical Stimulation=2 Airway=2 Respiration=2 TOTAL=8. (0=absent, 1=li mited, 2=present) 11:45:20 Presedation assessment performed by Fashion Director Party Plan Sales RN. 11:45:22 Patient has been NPO for More than 6Hrs. 11:45:46 Skin Breakdown-none present per patient. 11:46:05 Patient Warmer Placed on the Table. 11:46:11 A # 20 IV was noted in the Antecubital (right). Grade = 0 11:46:22 HR=50 bpm, NLKZ=316/85 mmhg, SpO2=94.0 %, Resp=12 B/min, Keyes=2 Patient arrived on IV Solutions given by Dilip Soriano in Right Antecubital via Peripheral IV. Pump/Drip Flow = 20 11:46:31 ml/hr using NaCl .9. Ordered by Dilip Soriano. 11:47:12 History and physical on the chart or being dictated. Assessment: Initial Case, HR=53 BPM, Rhythm=sr, KEUL=919/85 mmhg, Chest Pain=0, Edema=None, Col or=Normal, Skin = Warm, Dry 11:47:14 Right Pulses: Ochoa Ped=1, Femoral=1, Radial=1 Left Pulses: Ochoa Ped=1, Femoral=1 11:47:18 Reference ECG taken 11:47:38 Bilateral groins prepped and right radial with 2% chlorhexidine, and with a 3 min. waiting time. 11:51:23 HR=62 bpm, WUVH=081/102 mmhg, SpO2=93.0 %, Resp=22 B/min, Keyes=2 11:54:55 Pressure channel 1 zeroed. 11:57:12 HR=53 bpm, VKNN=205/93 mmhg, SpO2=93.0 %, Resp=13 B/min, Keyes=2 12:00:18 0.5 mg VERSED given in lab by Juan Galdamez, BALTA in Right Antecubital via Peripheral IV. Or dered by Dilip Soriano. Time Out. Correct patient, correct procedure,correct physician, ,power injector not loaded with contrast with surgical 12:00:38 team present. Time Out Concurred by , individual staff and MANAGER INTELLIGENCE in procedure. Not loaded at t his time. 12:01:26 HR=65 bpm, KOCN=424/91 mmhg, SpO2=97.0 %, Resp=16 B/min, Keyes=2 25 mcg FENTANYL given in lab by Juan Galdamez, BALTA in Right Antecubital via Peripheral IV. Orde red by Bo, 12:01:40 Dilip. Time Out. Correct patient, correct procedure,correct physician, ,power injector not loaded with contrast with surgical 12:02:58 team present. Time Out Concurred by , individual staff and MANAGER INTELLIGENCE in procedure. Not loaded at t his time. 12:03:23 Presedation re-assessment performed by Fashion Director Party Plan Sales RN. 12:03:24 Case Start 12:03:26 Verbal Stimulation=2 Physical Stimulation=2 Airway=2 Respiration=2 TOTAL=8. (0=absent, 1=li mited, 2=present) 12:03:58 5 mL 1% XYLOCAINE given in lab by Dilip Soriano in Right Radial via Subcutaneous. Order ed by Dilip Soriano. 12:04:54 Access site was Radial Artery. right radial A SHEATH, FR6 TRANSRADIAL SLENDER 10CM FR 6 was advanced into the Radial (right) using the Perc utaneous 12:05:08 technique. A JR 4.0 INFINITI CATHETER FR 5 was advanced over a wire. OMNIPAQUE, 350 MG, 150ML 150ML was us ed for 12:05:41 injections. 12:06:23 HR=68 bpm, RUSR=438/93 mmhg, SpO2=97.0 %, Resp=29 B/min, Keyse=2 Recorded Pressure: LV, HR=58, Condition=Condition 1 12:06:49 (Left Ventricle) LV 156/16/20 Recorded Pressure: LV, Ao, HR=65, Condition=Condition 1 12:07:10 (Left Ventricle) LV 157/4/21, (Aorta) Ao 167/88/120 12:07:22 The RCA was injected and visualized at various angles. OMNIPAQUE, 350 MG, 150ML 150ML used . 12:08:16 The RCA was injected and visualized at various angles. OMNIPAQUE, 350 MG, 150ML 150ML use d. 12:11:26 HR=57 bpm, AWFX=486/85 mmhg, SpO2=95.0 %, Resp=13 B/min, Keyes=2 After removing the current catheter a JL 4.0 INFINITI CATHETER FR 5 was advanced over a WIRE, EXCHANGE 260CM 12:12:10 3MMJ 260CM. Recorded Pressure: Ao, HR=54, Condition=Condition 1 12:13:57 (Aorta) Ao 171/71/110 12:14:07 The LCA was injected and visualized at various angles. OMNIPAQUE, 350 MG, 150ML 150ML use d. 12:15:37 Catheter was removed OTW. 12:17:10 HR=63 bpm, ZSLO=159/92 mmhg, SpO2=94.0 %, Resp=16 B/min, Keyes=2 12:17:21 Case End Assessment: Final Case, HR=70 BPM, Rhythm=sr, GNBH=805/92 mmhg, Chest Pain=0, Edema=None, Leland r=Normal, Skin = Warm, Dry Right Pulses: Ochoa Ped=1, Femoral=1, Radial=1 12:17:29 Left Pulses: Ochoa Ped=1, Femoral=1 Neurological: State=Alert, Ox3, GALARZA Respiration: Resp=18 B/min, SpO2=98 %, O2=0 lpm 12:18:48 Catheter(s) removed without difficulty 12:19:08 No case complications noted. Radial Compression Device Used. 11 mLs of air placed in BAND, RADIAL COMPRESSION TR LARGE 29 2 9CM. Affected 12:19:10 hand 98 % O2 saturation. 12:19:41 Cine recording checked. 12:19:45 Bedside Report will be given. 12:19:50 Contrast Scanned 12:19:59 A Left Heart Cath was performed. 12:24:44 Vitals capture stopped. 12:25:[facility] - [facility] Media Used In Study Contrast Total Opened (mL) Total Used (mL) Total Wasted (mL) Omnipaque 50 50 0 End Study - Maximum Contrast Load Max Contrast Load (mL) 347.1 End Study - Radiation Exposure Fluoro Time (minutes) 3.7 End Study - Patient Disposition Complications Transferred To Telemetry Bed
[2017-03-31] MEDS ORDERED: POTASSIUM CHLORIDE 20 MEQ CONTROLLED RELEASE TAB PO ONE (14:00)
[2017-03-31] MEDS ORDERED: hydrALAZINE HCL 10 MG TAB PO PRN (14:00)
[2017-03-31] MEDS ORDERED: hydrALAZINE HCL 20 MG/ML VIAL IV PUSH PRN (14:00)
[2017-03-31 14:14] LABS: HDL CHOLESTEROL 31.8 MG/DL (40.0-60.0)
[2017-03-31] MEDS ORDERED: IOHEXOL 350 MG/ML 50 ML BTL (for Cath Lab) OTHER ONE (15:01)
--- NOTE | 2017-03-31 17:01 | MB ---
cc: DILIP ACHARYA DO DATE OF CONSULTATION March 31, 2017 REASON FOR CONSULTATION Chest pain, accelerated hypertension and elevated troponin. HISTORY OF PRESENT ILLNESS Elvin William is a pleasant 61-year-old male who is known to my partner, Dr. Borges and presented to [facility] on March 31, 2017 due to chest pain. He states that he has had left-sided pressure for the past day. He has been in the hospital multiple times over the past few months and has recently had mildly elevated troponins of around 0.07-0.09. He states that the chest pain is similar to his previous specifically when he needed a stent but not as bad. He also states that he has had difficulty controlling his blood pressure recently and while in the emergency room was as high as 190/95. He denies shortness of breath. PAST MEDICAL HISTORY 1. Coronary artery disease. 2. Sickle cell trait. 3. Anemia. 4. Hypertension. 5. History of left leg DVT. 6. Diabetes mellitus. 7. Chronic pain. PAST SURGICAL HISTORY 1. Previous stents, believed to be five. 2. Cardiac catheterization (07/28/2016) left main is patent and nonobstructive, LAD is patent and nonobstructive. Left circumflex has mild luminal irregularities. AV groove circ is patent with a 60% lesion distally. RCA is dominant. There is a patent stent in the midportion. It has a 100% occluded stump of the RV branch and after that there is an 80% eccentric lesion status post drug-eluting stent (3 x 15). 3. AAA repair (2012). 4. Left hip replacement. 5. Cholecystectomy. 6. Insulin pump removal. 7. Femoral-popliteal bypass. ALLERGIES 1. DAWIT INHIBITORS. 2. HYDROMORPHONE. MEDICATIONS 1. Orphenadrine 100 milligrams b.i.d. 2. Eliquis 5 milligrams b.i.d. 3. Plavix 75 milligrams daily. 4. Zetia 10 milligrams daily. 5. Lipitor 80 milligrams daily. 6. Hydralazine 100 milligrams every 8 hours. 7. Isosorbide mononitrate 60 milligrams daily. 8. Nitro sublingual as needed. 9. Cardura 2 milligrams daily. 10. Coreg 25 milligrams b.i.d. 11. Nifedipine ER 90 milligrams daily. 12. Cozaar 100 milligrams daily. 13. Aspirin 81 milligrams daily. 14. Lortab 10/325 milligrams every 4 hours as needed for pain. 15. Klonopin 2 milligrams b.i.d. 16. Gabapentin 800 milligrams t.i.d. 17. Ambien 10 milligrams every night as needed for sleep. 18. Neupro patch 3 milligrams daily. 19. Potassium 20 milliequivalents daily. 20. Lantus 75 units b.i.d. FAMILY HISTORY Denies premature coronary artery disease or sudden cardiac within the family. SOCIAL HISTORY The patient denies tobacco abuse, alcohol or drug abuse. REVIEW OF SYSTEMS 14-systems were reviewed including osteopathic, pertinent positives and negatives above otherwise negative. PHYSICAL EXAMINATION VITAL SIGNS: Temperature 97.7, heart rate 60, blood pressure 190/95, respirations 20, pulse ox 96% on room air. GENERAL: In general, the patient appears well, in no acute distress, alert, awake and oriented x3. Extraocular muscles intact. Mucous membranes moist. NECK: Supple with no JVD at 45 degrees. No carotid bruits heard bilaterally. Carotid upstroke is brisk in nature. HEART: Heart is regular rate and rhythm. Positive first and second heart sounds with no noted murmurs, gallops or rubs. LUNGS: Clear to auscultation bilaterally. No wheezes, rales or rhonchi. ABDOMEN: Soft, nontender, nondistended. No organomegaly noted. EXTREMITIES: Show no clubbing, cyanosis or edema. Femoral and distal pulses intact bilaterally. NEUROLOGICALLY: No focal deficits. SKIN: Warm, dry and intact. OSTEOPATHIC: No kyphoscoliosis, lordosis or paraspinal tender points. LABORATORY FINDINGS Hemoglobin 12.1, hematocrit 36.5, platelets 136. Potassium 3.4, BUN 24, creatinine 1.71. Troponin 0.09. CARDIOLOGY STUDIES Electrocardiogram (March 31, 2017 at ___) sinus bradycardia at 59 beats per minute. IMPRESSION 1. Chest pain mildly concerning for coronary insufficiency. 2. Minimally elevated troponin which may be due to accelerated hypertension versus chronic kidney disease. 3. Accelerated hypertension with a blood pressure as high as 190/95. 4. Coronary artery disease. 5. Sickle cell trait. 6. History of left leg DVT. 7. Diabetes mellitus. 8. History of AAA status post repair (2012). 9. Peripheral artery disease with a femoral popliteal bypass. RECOMMENDATIONS 1. Mr. William presented with chest pain and though he has had this multiple times with elevated hypertension he has also had this when he needed his stent to his RCA in July. As he does have the mildly elevated troponin with the chest pain it is felt that it is reasonable for him to undergo cardiac catheterization to rule out progression of his coronary artery disease. 2. Risks, benefits and alternatives have been explained to him and he consents as such. 3. Postprocedure his medications will need to be adjusted for further blood pressure control as he is on multiple antianginals at high doses. 4. He should continue on aspirin and Plavix for his recent drug-eluting stent. 5. I believe his Apixaban is on for his history of DVT. 6. Lastly, I believe he is recommended for consideration of C-PAP which may help with his malignant hypertension overall. 7. Further recommendations will be made based on the hospital course. Thank you for allowing me to see Elvin Sinclair. If there are any questions please do not hesitate to call. Dilip Acharya DO VGP/EO /9:55 AM /3:20 PM MTDD
--- NOTE | 2017-03-31 17:01 | MA ---
cc: DILIP ACHARYA DO DATE: 03/31/2017. TYPE OF PROCEDURE PERFORMED: Left heart catheterization, coronary angiogram, moderate sedation 15 minutes. PREPROCEDURE DIAGNOSIS: Chest pain, CAD, elevated troponin, accelerated hypertension / hypertensive urgency. POSTPROCEDURE DIAGNOSIS: Chest pain, mild coronary artery disease, accelerated hypertension / hypertensive urgency, elevated troponin due to elevated blood pressure. CONTRAST USED: 50 mL. FLUOROSCOPY: 3.7 minutes. MODERATE SEDATION: 15 minutes. MEDICATIONS: 1. Versed 0.5 milligrams. 2. Fentanyl 25 micrograms. 3. Verapamil 2.5 milligrams. 4. Nitro 200 micrograms. 5. Heparin 4000 units. PROCEDURAL SUMMARY: Elvin William as a pleasant 61-year-old male who presented to [facility] on March 31, 2017 due to chest pain. He had a mildly elevated troponin and has a known history of coronary artery disease. It was felt that the troponin elevation was due to accelerated hypertension but there was a concern as he has been in the hospital multiple times for chest pain similar to when he needed his stent and continues to have mild elevation of his troponin as well as pressure type symptoms. Because of this he was recommended cardiac catheterization. Risks, benefits and alternatives were explained to him and he consented as such. He was brought to the lab and prepped in the usual sterile fashion. Right radial artery was accessed using a modified Seldinger technique and placement of a 5/6 Tajik slender sheath. This was easily aspirated and flushed. A JR-4 was advanced over a J-wire to the ascending aorta and across the aortic valve for measurement of left ventricular pressure. This was pulled back across the aortic valve showing no significant gradient of aortic stenosis. JR-4 was used for selective angiography of the right coronary artery. This was exchanged out for a JL-4 which was used for selective angiography of the left coronary artery. JL-4 was removed over a J-wire. Radial band was placed over the arteriotomy site for hemostasis. The patient left the labor conciliator cardiovascularly stable. FINDINGS: 1. Left main: A normal sized vessel with adequate reflux. It bifurcates into a left anterior descending and circumflex. 2. Left anterior descending: Normal to large sized vessel with mild luminal irregularities throughout the proximal and mid portion but no significant disease. He gives off one major diagonal which has no significant disease. 3. Left circumflex: Normal to large sized vessel with mild luminal irregularities throughout the proximal portion. The midportion of the AV groove circumflex has a 50% to 60% lesion but it is overall a small vessel at 1.5 mm. It gives off one major obtuse marginal which has a 20% to 30% lesion in the midportion but no significant disease throughout. 4. Right coronary artery: The right coronary artery has a high anterior takeoff. It is a dominant vessel in nature. Two notable stents; one in the midportion and one in the distal portion are both patent. There is 20% to 30% in-stent re-stenosis of the distal stent. Otherwise no significant disease. Left ventricular end diastolic pressure is 20. IMPRESSIONS: 1. Mild coronary artery disease as above by cardiac catheterization. Previous stents noted in the right coronary artery are both patent. 2. Elevated troponin most likely due to hypertensive urgency. 3. Accelerated hypertension / hypertensive urgency. 4. Chest pain secondary to accelerated hypertension. RECOMMENDATIONS: 1. Mr. William appears to have mild coronary artery disease and we will continue medical management. 2. Overall he needs blood pressure control as he presented with hypertensive urgency. 3. He states that he has been tested for obstructive sleep apnea and has it, but has not really used the mask. Overall I think his best option is to be placed on C-PAP as I think this will help with his resistant hypertension. 4. He will be placed back on his Eliquis starting tonight for his history of lower extremity DVT. 5. Further recommendations will be made during hospital course. Thank you for allowing me to see Elvin William. If there are any questions, please do not hesitate to call. Dilip Acharya DO VGP/JCC /12:36 PM /4:45 PM
[2017-03-31] MEDS: ACETAMINOPHEN/HYDROcodone 325 MG/10 MG TAB PO PRN ×2 (17:10→20:56)
[2017-03-31] MEDS: APIXABAN 5 MG TABLET PO SCH ×2 (21:00→23:15)
[2017-03-31] MEDS: ORPHENADRINE CITRATE 100 MG SUSTAINED RELEASE TAB PO SCH (23:15)
[2017-04-01] VITALS (12 sets, daily range): BP systolic 145–162; BP diastolic 83–87; PULSE 61–91; RESP 16–18; TEMP 98.2–98.6; O2SAT 92–96
[2017-04-01] MEDS: hydrALAZINE HCL 100 MG TAB PO SCH ×2 (02:00→10:30)
[2017-04-01] MEDS: ACETAMINOPHEN/HYDROcodone 325 MG/10 MG TAB PO PRN (06:51)
[2017-04-01] MEDS ORDERED: ISOSORBIDE MONONITRATE 60 MG TAB PO SCH (07:00)
[2017-04-01 07:16] LABS: AUTOMATED NEUTROPHIL # 2.6 TH/MM3 (1.8-7.7); BASOPHIL % 0.6 % (0.0-2.0); EOSINOPHIL # 0.2 TH/MM3 (0-0.4); EOSINOPHIL % 4.5 % (0.0-4.0); HEMO FLAGS DIFF FINAL; LYMPH % 27.2 % (9.0-44.0); LYMPHOCYTE # 1.2 TH/MM3 (1.0-4.8); MEAN CELL VOLUME 77.8 FL (80.0-100.0); MEAN CORPUSCULAR HGB CONC 33.4 % (32.0-36.0); MONO % 10.8 % (0.0-8.0); NEUT % 56.9 % (16.0-70.0); PLATELET COUNT 133 TH/MM3 (150-450); RED BLOOD COUNT 4.63 MIL/MM3 (4.50-5.90); RED CELL DISTRIBUTION WIDTH 17.7 % (11.6-17.2); WHITE BLOOD COUNT 4.5 TH/MM3 (4.0-11.0)
[2017-04-01 07:40] LABS: BICARBONATE 28.6 MEQ/L (21.0-32.0); POTASSIUM 3.9 MEQ/L (3.5-5.1)
--- NOTE | 2017-04-01 08:22 | HHI.DCPOC ---
Discharge Care Plan Goals to Promote Your Health * To prevent worsening of your condition and complications * To maintain your health at the optimal level Directions to Meet Your Goals Take your medications as prescribed Follow your dietary instruction Follow activity as directed Keep your appointments as scheduled Take your immunizations and boosters as scheduled If your symptoms worsen call your PCP, if no PCP go to Urgent Care Center or Emergency Room Smoking is Dangerous to Your Health. Avoid second hand smoke Call the 24-hour hour crisis hotline for domestic abuse at Lani London MD Apr 01, 2017 08:22
[2017-04-01] MEDS: DOXAZOSIN MESYLATE 2 MG TAB PO SCH (08:50)
[2017-04-01] MEDS: CARVEDILOL 12.5 MG TAB PO SCH (08:50)
[2017-04-01] MEDS: EZETIMIBE 10 MG TAB PO SCH (08:50)
[2017-04-01] MEDS: ASPIRIN 81 MG CHEW TAB CHEW SCH (08:51)
[2017-04-01] MEDS: POTASSIUM CHLORIDE 20 MEQ CONTROLLED RELEASE TAB PO SCH (08:51)
[2017-04-01] MEDS: CLOPIDOGREL 75 MG TAB PO SCH (08:51)
[2017-04-01] MEDS: DOCUSATE SODIUM 50 MG/SENNA 8.6 MG TAB PO SCH (08:51)
[2017-04-01] MEDS: ATORVASTATIN 80 MG TAB PO SCH (08:51)
[2017-04-01] MEDS: GABAPENTIN 400 MG CAP PO SCH (08:52)
[2017-04-01] MEDS: APIXABAN 5 MG TABLET PO SCH (08:52)
[2017-04-01] MEDS: SODIUM CHLORIDE 0.9% FLUSH 10 ML FLUSH IV FLUSH SCH (08:52)
[2017-04-01] MEDS: LOSARTAN 50 MG TAB PO SCH (08:52)
[2017-04-01] MEDS: NIFEdipine 90 MG SUSTAINED RELEASE TAB PO SCH (08:52)
[2017-04-01] MEDS: INSULIN ASPART SUPPLEMENTAL SCALE SQ SCH (08:53)
--- NOTE | 2017-04-01 09:29 | HHI.PR ---
Subjective Remarks Says no more chest pain , no sob. Did not use CPAP overnight. Says he just got CPAP and did not use it yet. No n/v/d/c. Denies chest pain or sob. Family at bedside. Feels comfortable to go home. Objective Vitals Vital Signs Date Time Temp Pulse Resp B/P (MAP) Pulse Ox O2 Delivery O2 Flow Rate FiO2 04/01/17 06:56 98.6 65 16 162/87 (112) 92 04/01/17 06:00 65 04/01/17 05:00 91 04/01/17 04:00 68 04/01/17 03:00 63 04/01/17 02:00 62 04/01/17 01:00 72 04/01/17 00:00 66 03/31/17 23:00 71 03/31/17 23:00 98.9 66 16 160/86 (110) 95 03/31/17 22:00 68 03/31/17 21:00 72 03/31/17 20:29 98.9 70 16 167/99 (121) 95 03/31/17 20:00 68 03/31/17 19:00 74 03/31/17 18:13 18 03/31/17 18:03 64 03/31/17 17:54 64 03/31/17 16:02 58 03/31/17 15:30 60 18 170/92 (118) 93 03/31/17 12:43 94 Nasal Cannula 2.00 03/31/17 11:27 98.7 63 19 141/95 (110) 96 I/O 03/31/17 03/31/17 03/31/17 04/01/17 04/01/17 04/01/17 07:00 15:00 23:00 07:00 15:00 23:00 Intake Total 1080 ml Output Total 2400 ml Balance -1320 ml Intake Oral 1080 ml IV Total 0 ml Output Urine Total 2400 ml Stool Total 0 ml Result Diagram: 04/01/17 0446 04/01/17 044 Imaging Last Impressions Chest X-Ray 03/31/17 0453 Signed Impressions: Service Date/Time: Friday, March 31, 2017 05:19 - CONCLUSION: No acute cardiopulmonary process. Min Wiggins MD Objective Remarks GENERAL: This is a well-nourished, well-developed patient, in no apparent distress. CARDIOVASCULAR: Regular rate and rhythm without murmurs, gallops, or rubs. RESPIRATORY: Clear to auscultation. Breath sounds equal bilaterally. No wheezes , rales, or rhonchi. GASTROINTESTINAL: Abdomen soft, non-tender, nondistended. No hepato-splenomegaly , or palpable masses. No guarding. MUSCULOSKELETAL: Right arm with dressing on , no bleeding. Extremities without clubbing, cyanosis, or edema. No joint tenderness, effusion, or edema noted. No calf tenderness. Negative Homans sign bilaterally. NEUROLOGICAL: Awake and alert. Cranial nerves II through XII intact. Motor and sensory grossly within normal limits. Five out of 5 muscle strength in all muscle groups. Normal speech. A/P Problem List: (1) Chest pain ICD Code: R07.9 - Chest pain Status: Acute Assessment and Plan Mr. William is a 61-year-old male patient with unknown medical history of sickle cell trait, CAD with HI, diabetes mellitus, hypertension, hyperlipidemia who presented to the ED with complaints of chest pain. Patient states that around 0400 he was awoken by a pressure-like chest pain, 8/10 on pain scale, located in his left chest, denies any radiation of pain to neck or back, lasting a few minutes and intermittently coming and going. Patient had cardiac cath on 03/[address] Main, clean cath continue medical treatment, patient stable cleared by cardiology for DC . DC home to follow up as OP with PCP and [facility] cardiology Dr Borges Chest pain Elevated troponin - Troponin 0.09, total creatinine clearance 431. We'll trend serial troponins and EKGs. Follow -EKG reviewed, showing sinus bradycardia, no arrhythmias, no ST elevation or changes. - Chest x-ray reviewed, showing no acute cardiopulmonary process. - Given morphine in NAD and nitroglycerin sublingual and EGD. - Consult placed to cardiology, appreciate input. Patient does see Dr. Brooks in the outpatient setting. - Patient seen by Dr. Soriano who is planning on performing a heart catheterization this morning. - Last echocardiogram was in 07/2016 showing mild LVH, with an EF of 60-65%. - Had normal cardiac cath 03/31/17 (Dr Aviva Main) , cleared patient for DC Hypertension, acute on chronic: Systolic Blood pressure in the 190s. Patient on multiple BP meds, continue home Cardura, hydralazine, Imdur, losartan, nifedipine. Will add hydralazine IV. Continue to monitor closely. Hypokalemia: K3.4, replacement ordered. Follow BMP. Type 2 diabetes mellitus, chronic: Random glucose upon presentation 195. Accu- Chek before meals and at bedtime, sliding scale insulin, cover as needed. Acute kidney injury: Creatinine 1.71 on presentation. Unknown baseline. We'll follow BMP. History of Coronary artery disease with history of HI and stent placement: Continue carvedilol and Plavix Hyperlipidemia, chronic: Continue home atorvastatin and Zetia. Obstructive sleep apnea, chronic: Encouraged patient to have bring in CPAP machine for overnight. History of DVT DVT prophylaxis - SCDs/Continue Eliquis. Discharge Planning DC home in stable condition to follow up as OP with PCP and consultants. Meds oer med reconciliation. Advice compliance with meds and using CPAP at night Activity ad erik as tolerated Diet: Healthy heart and 1800 Kcal diabetic diet Family Physician: Jhonathan Harris MD Reason for Visit: Chest Pain Lani London MD Apr 01, 2017 09:29
--- NOTE | 2017-04-01 09:51 | PD.CARD.PN ---
Subjective Subjective Remarks No events overnight Did not use CPAP last night No chest pain this morning Objective Medications Current Medications Medications (Trade) Dose Ordered Sig/Conchita Route Start Time Stop Time Status Last Admin (NS Flush) 2 ml UNSCH PRN IV FLUSH 03/31/17 07:45 (NS Flush) 2 ml BID IV FLUSH 03/31/17 09:00 04/01/17 08:52 (Tylenol) 650 mg Q4H PRN PO 03/31/17 07:45 (Zofran Inj) 4 mg Q6H PRN IVP 03/31/17 07:45 (Compazine Supp) 25 mg Q12H PRN RECTAL 03/31/17 07:45 (Narcan Inj) 0.4 mg UNSCH PRN IV PUSH 03/31/17 07:45 (Sobeida-Colace) 1 tab BID PO 03/31/17 09:45 04/01/17 08:51 (Milk Of Magnesia Liq) 30 ml Q12H PRN PO 03/31/17 07:45 (Senokot) 17.2 mg Q12H PRN PO 03/31/17 07:45 (Dulcolax Supp) 10 mg DAILY PRN RECTAL 03/31/17 07:45 (Lactulose Liq) 30 ml DAILY PRN PO 03/31/17 07:45 (Eliquis) 5 mg BID PO 03/31/17 10:00 Future hold 04/01/17 08:52 (Aspirin Chew) 81 mg DAILY CHEW 03/31/17 09:30 04/01/17 08:51 (Lipitor) 80 mg DAILY PO 03/31/17 09:30 04/01/17 08:51 (Coreg) 25 mg BID PO 03/31/17 09:30 04/01/17 08:50 (KlonoPIN) 2 mg BID PO 03/31/17 10:00 03/31/17 23:15 (Plavix) 75 mg DAILY PO 03/31/17 09:30 04/01/17 08:51 (Cardura) 2 mg DAILY PO 03/31/17 10:00 04/01/17 08:50 (Zetia) 10 mg DAILY PO 03/31/17 09:45 04/01/17 08:50 (Neurontin) 400 mg TID PO 03/31/17 09:00 04/01/17 08:52 (Apresoline) 100 mg Q8H PO 03/31/17 10:00 03/31/17 17:36 ([place] 10-325 Mg) 1 tab Q4H PRN PO 03/31/17 07:45 04/01/17 06:51 (Imdur) 60 mg DAILY@07 PO 04/01/17 07:00 04/01/17 06:51 (Cozaar) 100 mg DAILY PO 03/31/17 09:45 04/01/17 08:52 (Procardia Xl) 90 mg DAILY PO 03/31/17 09:00 04/01/17 08:52 (Norflex Cr) 100 mg BID PO 03/31/17 21:00 03/31/17 23:15 (KCl) 20 meq DAILY PO 03/31/17 09:45 04/01/17 08:51 (Ambien) 10 mg HS PRN PO 03/31/17 07:45 Patient Own Medication PT OWN MED: NEUPRO (ROTIGOTI... DAILY TOPICAL 03/31/17 10:00 Future Hold (D50w (Vial) Inj) 50 ml UNSCH PRN IV 03/31/17 07:45 (Glucagon Inj) 1 mg UNSCH PRN OTHER 03/31/17 07:45 (Apresoline Inj) 20 mg Q4H PRN IV PUSH 03/31/17 14:00 03/31/17 20:55 (Apresoline) 10 mg Q6HR PRN PO 03/31/17 14:00 (NovoLOG SUPPLEMENTAL SCALE) 1 ACHS SLIDING SCALE SQ 03/31/17 21:00 04/01/17 08:53 Vital Signs / I&O Vital Signs Date Time Temp Pulse Resp B/P (MAP) Pulse Ox O2 Delivery O2 Flow Rate FiO2 04/01/17 09:00 71 04/01/17 08:00 98.2 63 18 145/83 (103) 96 04/01/17 08:00 63 04/01/17 07:32 61 04/01/17 06:56 98.6 65 16 162/87 (112) 92 04/01/17 06:00 65 04/01/17 05:00 91 04/01/17 04:00 68 04/01/17 03:00 63 04/01/17 02:00 62 04/01/17 01:00 72 04/01/17 00:00 66 03/31/17 23:00 71 03/31/17 23:00 98.9 66 16 160/86 (110) 95 03/31/17 22:00 68 03/31/17 21:00 72 03/31/17 20:29 98.9 70 16 167/99 (121) 95 03/31/17 20:00 68 03/31/17 19:00 74 03/31/17 18:13 18 03/31/17 18:03 64 03/31/17 17:54 64 03/31/17 16:02 58 03/31/17 15:30 60 18 170/92 (118) 93 03/31/17 12:43 94 Nasal Cannula 2.00 03/31/17 11:27 98.7 63 19 141/95 (110) 96 I/O 03/31/17 03/31/17 03/31/17 04/01/17 04/01/17 04/01/17 07:00 15:00 23:00 07:00 15:00 23:00 Intake Total 1080 ml Output Total 2400 ml Balance -1320 ml Intake Oral 1080 ml IV Total 0 ml Output Urine Total 2400 ml Stool Total 0 ml Physical Exam GENERAL: NAD, AAOx3 SKIN: Warm and dry. HEAD: Atraumatic. Normocephalic. EYES: Pupils equal and round. No scleral icterus. No injection or drainage. ENT: No nasal bleeding or discharge. Mucous membranes pink and moist. NECK: Trachea midline. No JVD. CARDIOVASCULAR: Regular rate and rhythm. RESPIRATORY: No accessory muscle use. Clear to auscultation. Breath sounds equal bilaterally. GASTROINTESTINAL: Abdomen soft, non-tender, nondistended. Hepatic and splenic margins not palpable. MUSCULOSKELETAL: Extremities without clubbing, cyanosis, or edema. No obvious deformities. Right radial no hematoma, neurovascularly intact distally NEUROLOGICAL: Awake and alert. No obvious cranial nerve deficits. Motor grossly within normal limits. Five out of 5 muscle strength in the arms and legs. Normal speech. PSYCHIATRIC: Appropriate mood and affect; insight and judgment normal. Laboratory Laboratory Tests Test 03/31/17 11:10 04/01/17 04:46 Total Creatine Kinase 379 U/L Creatine Kinase MB 2.4 NG/ML Creatine Kinase MB % 0.6 % Troponin I 0.08 NG/ML Triglycerides Level 368 MG/DL Cholesterol Level 144 MG/DL LDL Cholesterol 39 MG/DL HDL Cholesterol 31.8 MG/DL Cholesterol/HDL Ratio 4.52 RATIO White Blood Count 4.5 TH/MM3 Red Blood Count 4.63 MIL/MM3 Hemoglobin 12.0 GM/DL Hematocrit 36.0 % Mean Corpuscular Volume 77.8 FL Mean Corpuscular Hemoglobin 26.0 PG Mean Corpuscular Hemoglobin Concent 33.4 % Red Cell Distribution Width 17.7 % Platelet Count 133 TH/MM3 Mean Platelet Volume 8.5 FL Neutrophils (%) (Auto) 56.9 % Lymphocytes (%) (Auto) 27.2 % Monocytes (%) (Auto) 10.8 % Eosinophils (%) (Auto) 4.5 % Basophils (%) (Auto) 0.6 % Neutrophils # (Auto) 2.6 TH/MM3 Lymphocytes # (Auto) 1.2 TH/MM3 Monocytes # (Auto) 0.5 TH/MM3 Eosinophils # (Auto) 0.2 TH/MM3 Basophils # (Auto) 0.0 TH/MM3 CBC Comment DIFF FINAL Differential Comment Blood Urea Nitrogen 27 MG/DL Creatinine 1.81 MG/DL Random Glucose 354 MG/DL Calcium Level 8.8 MG/DL Sodium Level 141 MEQ/L Potassium Level 3.9 MEQ/L Chloride Level 103 MEQ/L Carbon Dioxide Level 28.6 MEQ/L Anion Gap 9 MEQ/L Estimat Glomerular Filtration Rate 47 ML/MIN Assessment and Plan Problem List: (1) Chest pain ICD Codes: R07.9 - Chest pain Status: Acute (2) H/O heart artery stent ICD Codes: Z95.5 - H/O heart artery stent Status: Chronic (3) Sickle cell trait ICD Codes: D57.3 - Sickle cell trait Status: Chronic (4) Chronic back pain ICD Codes: G89.29 - Other chronic pain; M54.9 - Chronic back pain Status: Chronic (5) DM (diabetes mellitus) ICD Codes: E11.9 - Diabetes mellitus Status: Chronic (6) Obesity ICD Codes: E66.9 - Obesity Status: Chronic (7) Hyperlipidemia ICD Codes: E78.5 - Hyperlipidemia Status: Chronic (8) Hx of coronary artery disease ICD Codes: Z86.79 - History of coronary artery disease Status: Chronic (9) History of DVT (deep vein thrombosis) ICD Codes: Z86.718 - History of deep venous thrombosis Status: Chronic (10) GERBER (obstructive sleep apnea) ICD Codes: G47.33 - Obstructive sleep apnea (adult) (pediatric) Status: Acute Assessment and Plan 1) Chest pain/Elevated troponin most likely due to accelerated HTN/HTN urgency 2) Cath showing no significant disease 3) Resistant HTN on multiple medications GERBER, needs to use CPAP to help 4) Weight loss 5) states they eat out a lot, instructed on salt restriction 6) Con't ASA/Plavix for JG from July 7) Follow up with Dr. Borges in the outpatient office 8) Cardiovascularly stable for discharge Dilip Soriano DO Apr 01, 2017 09:51
[2017-04-01] MEDS: clonazePAM 1 MG TAB PO SCH (10:30)
[2017-04-01] MEDS: ORPHENADRINE CITRATE 100 MG SUSTAINED RELEASE TAB PO SCH (10:30)
== END 2017-04-01 11:01 | disposition home or self-care (01) | DRG 287 ==
LOC: NEPC 04:16 → NEDA 07:36 → OBSVTOIN 07:42 → HCIN 15:00
PROVIDERS: ADMIT Hospitalist; ATTEND Hospitalist
PROC: B2111ZZ Fluoroscopy of Multiple Coronary Arteries using Low Osmolar Contrast (ICD-10-PCS; 2017-03-31)
PROC: B2151ZZ Fluoroscopy of Left Heart using Low Osmolar Contrast (ICD-10-PCS; 2017-03-31)
PROC: 4A023N7 Measurement of Cardiac Sampling and Pressure, Left Heart, Percutaneous Approach (ICD-10-PCS; principal; 2017-03-31 09:45)
DX: I25.10 Atherosclerotic heart disease of native coronary artery without angina pectoris (principal); N17.9 Acute kidney failure, unspecified; I10 Essential (primary) hypertension; E11.9 Type 2 diabetes mellitus without complications; E78.5 Hyperlipidemia, unspecified; D64.9 Anemia, unspecified; I16.0 Hypertensive urgency; R07.9 Chest pain, unspecified; Z95.5 Presence of coronary angioplasty implant and graft; D57.3 Sickle-cell trait; E87.6 Hypokalemia; G89.29 Other chronic pain; M54.9 Dorsalgia, unspecified; G47.33 Obstructive sleep apnea (adult) (pediatric); I25.2 Old myocardial infarction; I73.9 Peripheral vascular disease, unspecified; E66.9 Obesity, unspecified; Z86.73 Personal history of transient ischemic attack (TIA), and cerebral infarction without residual deficits; Z86.718 Personal history of other venous thrombosis and embolism; Z86.79 Personal history of other diseases of the circulatory system; Z91.19 Patient's noncompliance with other medical treatment and regimen; Z96.642 Presence of left artificial hip joint; Z79.01 Long term (current) use of anticoagulants
CPT/HCPCS: 71010; 80048; 80053; 80061; 82550; 82552; 82948; 83690; 83735; 84484; 85025; 85610; 85730; 93005; 93454; 96374; 96375; C1769; C1893; J0360; J1644; J1815; J2250; J2270; J2360; J2405; J3010; J7030; J7040; Q9967

== ENCOUNTER 2017-04-28 23:53 | Emergency (ER) | payer OTHER, MEDICAID ==
[~2017-04-28] VITALS: Ht 175.3 cm; Wt 115.0 kg
[2017-04-28 23:55] VITALS: BP 223/102; PULSE 82; RESP 20; TEMP 98.3; O2SAT 96
[2017-04-29] MEDS ORDERED: ROSU40 PO (00:13)
[2017-04-29] MEDS ORDERED: hydrALAZINE HCL 100 MG TAB PO ONE (00:15)
[2017-04-29] MEDS ORDERED: CARVEDILOL 12.5 MG TAB PO ONE (00:15)
[2017-04-29] MEDS ORDERED: ULTR50TA5 PO (00:22)
[2017-04-29] MEDS ORDERED: CYCL1TAB29 PO (00:22)
--- NOTE | 2017-04-29 00:23 | PD ---
HPI . Back pain Chief Complaint: Fall Time Seen by Provider: 00:06 Travel History International Travel<30 days: No Contact w/Intl Traveler<30days: No Traveled to known affect area: No History of Present Illness HPI Patient presents with a chief complaint of low back pain. He states that he fell getting out of the car yesterday and landed flat on his face. He states that he has a history of chronic low back pain and that the fall exacerbated his chronic pain. He saw his primary care physician yesterday for this pain and was given an injection of Norflex. He states that it helped temporarily. He states that he has a prescription for Norflex but has not used any today. He states that he has not tried any [id number] his extremities because they don't help him. He states that he is no longer taking Lortab because it constipates him and doesn't really help his pain that much. The patient further admits that he has not taken his evening doses of antihypertensives. Back pain is in the diffuse low back area. It is exacerbated by movement. No relieving factor. Rated 10/10. PFSH Past Medical History Hx Anticoagulant Therapy: Yes (Eliquis) AAA: Yes (JUL 2011/ ) Anemia: Yes Arthritis: No Asthma: No Autoimmune Disease: No Blood Disorders: Yes (SICKLE CELL TRAIT) Anxiety: No Depression: No Heart Rhythm Problems: Yes Cancer: No Cardiovascular Problems: Yes ([place] stents x5, CAD, HTN) High Cholesterol: No Chemotherapy: No Chest Pain: Yes Congestive Heart Failure: No COPD: No Cerebrovascular Accident: Yes Coronary Artery Disease: Yes Diabetes: Yes (Lantus) Patient Takes Glucophage: No Diminished Hearing: No Deep Vein Thrombosis: Yes (LT LEG) Endocrine: No GERD: No Glaucoma: No Genitourinary: No Headaches: No Hepatitis: No Hiatal Hernia: No Heparin Induced Thrombocytopen: No Hypertension: Yes Immune Disorder: No Implanted Vascular Access Dvce: Yes (RIGHT INSULIN PUMP removed) Kidney Stones: No Musculoskeletal: No Neurologic: No Psychiatric: No Reproductive: No Respiratory: Yes Immunizations Current: Yes Migraines: No Myocardial Infarction: No Pancreatitis: Yes Radiation Therapy: No Renal Failure: No Seizures: No Sickle Cell Disease: Yes (TRAIT) Sleep Apnea: No Thyroid Disease: No Ulcer: No PNEUMOCCOCAL Vaccine (Year): 3 Past Surgical History Abdominal Aneurysm Repair: Yes (2012) Abdominal Surgery: Yes AICD: No Appendectomy: No Arteriovenous Shunt: No Body Medical Devices: STENTS X 4 Cardiac Surgery: Yes (stent) Cholecystectomy: Yes Coronary Artery Bypass Graft: No Coronary Stent: Yes (2009 X 2, 2010 X2) Ear Surgery: No Endocrine Surgery: No Eye Surgery: No Genitourinary Surgery: No Gynecologic Surgery: No Insulin Pump: Yes (removed) Joint Replacement: Yes (LEFT HIP 2000) Neurologic Surgery: No Oral Surgery: No Pacemaker: No Thoracic Surgery: No Other Surgery: Yes (Stent placement x 2; GB REMOVED) Social History Alcohol Use: No Tobacco Use: No (QUIT 2005) Substance Use: No Allergies-Medications (Allergen,Severity, Reaction): Coded Allergies: benazepril (Verified Allergy, Severe, ANGIOEDEMA, 04/29/17) captopril (Verified Allergy, Severe, ANGIOEDEMA, 04/29/17) enalaprilat (Verified Allergy, Severe, 04/29/17) ANGIOEDEMA fosinopril (Verified Allergy, Severe, ANGIOEDEMA, 04/29/17) lisinopril (Verified Allergy, Severe, ANGIOEDEMA, 04/29/17) quinapril (Verified Allergy, Severe, ANGIOEDEMA, 04/29/17) hydromorphone (Verified Adverse Reaction, Intermediate, ITCHING, 04/29/17) Reported Meds & Prescriptions Reported Meds & Active Scripts Active Ultram (Tramadol HCl) 50 Mg Tab 50 Mg PO Q4H PRN Flexeril (Cyclobenzaprine HCl) 10 Mg Tab 10 Mg PO TID Nifedipine ER (Nifedipine) 90 Mg Tab 90 Mg PO DAILY Hydralazine (Hydralazine HCl) 100 Mg Tab 100 Mg PO Q8H Lantus Inj (Insulin Glargine) 1,000 Unit/10 Ml Vial 75 Units SQ BID 30 Days Cardura (Doxazosin Mesylate) 2 Mg Tab 2 Mg PO DAILY Isosorbide Mononitrate ER (Isosorbide Mononitrate) 60 Mg Tab 60 Mg PO DAILY@07 Cozaar (Losartan Potassium) 50 Mg Tab 100 Mg PO DAILY Plavix (Clopidogrel Bisulfate) 75 Mg Tab 75 Mg PO DAILY Lipitor (Atorvastatin Calcium) 40 Mg Tab 80 Mg PO DAILY Reported Crestor (Rosuvastatin Calcium) 40 Mg Tab 40 Mg PO DAILY Eliquis (Apixaban) 5 Mg Tab 5 Mg PO BID Zetia (Ezetimibe) 10 Mg Tab 10 Mg PO DAILY Neupro Patch 24 HR (Rotigotine Patch 24 HR) 3 Mg/24 Hr Patch 3 Mg T-DERMAL DAILY Klonopin (Clonazepam) 2 Mg Tab 2 Mg PO BID Aspirin 81 Mg Chew 81 Mg CHEW DAILY Orphenadrine ER 12 HR (Orphenadrine Citrate) 100 Mg Tab 100 Mg PO BID Ambien (Zolpidem Tartrate) 10 Mg Tab 10 Mg PO HS PRN Novolin R Inj (Insulin Human Regular) 1,000 Unit/10 Ml Vial 0 SQ TIDACHS Sliding Scale As Directed. Nitroglycerin SL (Nitroglycerin) 0.4 Mg Subl 0.4 Mg SL DIRECTED PRN ONE TABLET UNDER THE TONGUE NEEDED FOR CHEST PAIN, MAY REPEAT EVERY FIVE MINUTES FOR A TOTAL OF 3 DOSES OR CALL 911 IF NO RELIEF Lortab (Hydrocodone-Acetaminophen) 10-325 Mg Tab 1 Tab PO Q4H PRN K-Tab (Potassium Chloride) 20 Meq Tab 20 Meq PO DAILY Coreg (Carvedilol) 25 Mg Tab 25 Mg PO BID Gabapentin 800 Mg Tab 800 Mg PO TID Review of Systems Except as stated in HPI: all other systems reviewed are Neg Gastrointestinal: Positive: Abdominal Pain Musculoskeletal: Positive: Pain (low back pain) Physical Exam Narrative GENERAL: Awake and alert and in no acute distress. SKIN: warm/dry. No bruising noted. No abrasions. HEAD: Normocephalic. Atraumatic. EYES: Pupils equal and round. No scleral icterus. No injection or drainage. ENT: No nasal bleeding or discharge. Mucous membranes pink and moist. NECK: Trachea midline. Full range of motion without pain.. CARDIOVASCULAR: Regular rate and rhythm. RESPIRATORY: No accessory muscle use. Clear to auscultation. Breath sounds equal bilaterally. GASTROINTESTINAL: Abdomen soft. Nontender. Bowel sounds present. Nondistended. MUSCULOSKELETAL: No obvious deformities. I am unable to elicit any tenderness to palpation in the back. NEUROLOGICAL: Awake and alert. No obvious cranial nerve deficits. Motor grossly within normal limits. Normal speech. PSYCHIATRIC: Appropriate mood and affect; insight and judgment normal. Data Data Last Documented VS Vital Signs Date Time Temp Pulse Resp B/P (MAP) Pulse Ox O2 Delivery O2 Flow Rate FiO2 04/28/17 23:55 98.3 82 20 223/102 (142) 96 Orders Orders Hydralazine (Apresoline) (04/29/17 00:15) Carvedilol (Coreg) (04/29/17 00:15) MDM Medical Decision Making Medical Screen Exam Complete: Yes Emergency Medical Condition: Yes Differential Diagnosis Differential diagnosis includes but is not limited to muscular low back pain, DDD, spinal stenosis, epidural abscess, sciatica, kidney infection or stone. Narrative Course This patient presents for the treatment of back pain. He reports chronic low back pain which was exacerbated by a fall yesterday. He does not have any neurological symptoms. He does not have any fever. I am not concerned about cauda equina syndrome or epidural abscess. The patient admits that he has not taken his blood pressure medication this evening. He has hypertension which is very difficult to control. I have ordered his usual evening antihypertensives. His pain will be treated with morphine and Ativan. He will be discharged following pain management. Diagnosis Primary Impression: Low back pain Qualified Codes: M54.5 - Low back pain Additional Impression: HTN (hypertension) Qualified Codes: I10 - Essential (primary) hypertension Patient Instructions: Back Pain (ED), General Instructions Med/Other Pt SpecificInfo: Prescription(s) given Scripts Tramadol (Ultram) 50 Mg Tab 50 MG PO Q4H Y for PAIN, #12 TAB 0 Refills Prov: Hilda Willson MD 04/29/17 Cyclobenzaprine (Flexeril) 10 Mg Tab 10 MG PO TID for Muscle Spasm, #90 TAB 0 Refills Prov: Hilda Willson MD 04/29/17 Disposition: 01 DISCHARGE HOME Condition: Stable Hilda Willson MD Apr 29, 2017 00:23
[2017-04-29 00:41] VITALS: BP 204/99; PULSE 65; RESP 21; O2SAT 93
== END 2017-04-29 00:57 | disposition home or self-care (01) ==
LOC: NEPD 23:53
DX: M54.5 Low back pain (principal); I10 Essential (primary) hypertension; E11.9 Type 2 diabetes mellitus without complications; Z79.4 Long term (current) use of insulin; Z79.899 Other long term (current) drug therapy
CPT/HCPCS: 99284

== ENCOUNTER 2017-05-21 16:51 | Observation (INO) | payer OTHER, MEDICAID ==
[~2017-05-21] VITALS: Ht 175.3 cm; Wt 120.0 kg
[~2017-05-21 16:51] MED LIST changes: +ASPI-516 CHEW; -ASPI81CH CHEW; +CYCL10TA PO; +EZET10 PO; +ROSU40 PO; +TRAM50 PO; -ZETI10TA5 PO
[2017-05-21 16:53] VITALS: BP 159/78; PULSE 71; RESP 18; TEMP 98.6; O2SAT 98
[2017-05-21 17:13] VITALS: O2SAT 97
[2017-05-21] MEDS ORDERED: ASPIRIN 81 MG CHEW TAB PO ONE (17:15)
[2017-05-21] MEDS ORDERED: SODIUM CHLORIDE 0.9% FLUSH 10 ML FLUSH IVF PRN (17:15)
[2017-05-21] MEDS ORDERED: NITROGLYCERIN 2% OINT 1 GM PACKET TOP ONE (17:15)
--- NOTE | 2017-05-21 17:32 | PD ---
HPI Chief Complaint: Chest Pain Time Seen by Provider: 17:11 Travel History International Travel<30 days: No Contact w/Intl Traveler<30days: No Traveled to known affect area: No History of Present Illness HPI 61-year-old male patient with history of CAD status post multiple stents, presents to the ER today with left-sided chest pains which she currently rates at an 8 out of 10. He denies any nausea, vomiting, shortness of breath, or any other symptoms. He states it feels a Pressure and he does not know any exacerbating or alleviating factors. Modifying Factors: None Associated Signs & Symptoms: Chest pain Risk Factors: CAD PFSH Past Medical History Hx Anticoagulant Therapy: Yes AAA: Yes (JUL 2011/ ) Anemia: Yes Arthritis: No Asthma: No Autoimmune Disease: No Blood Disorders: Yes (SICKLE CELL TRAIT) Anxiety: No Depression: No Heart Rhythm Problems: Yes Cancer: No Cardiovascular Problems: Yes High Cholesterol: No Chemotherapy: No Chest Pain: Yes Congestive Heart Failure: No COPD: No Cerebrovascular Accident: Yes Coronary Artery Disease: Yes Diabetes: Yes Patient Takes Glucophage: No Diminished Hearing: No Deep Vein Thrombosis: Yes (LT LEG) Endocrine: No GERD: No Glaucoma: No Genitourinary: No Headaches: No Hepatitis: No Hiatal Hernia: No Heparin Induced Thrombocytopen: No Hypertension: Yes Immune Disorder: No Implanted Vascular Access Dvce: Yes (RIGHT INSULIN PUMP removed) Kidney Stones: No Musculoskeletal: No Neurologic: No Psychiatric: No Reproductive: No Respiratory: Yes Immunizations Current: Yes Migraines: No Myocardial Infarction: No Pancreatitis: Yes Radiation Therapy: No Renal Failure: No Seizures: No Sickle Cell Disease: Yes (TRAIT) Sleep Apnea: No Thyroid Disease: No Ulcer: No PNEUMOCCOCAL Vaccine (Year): 3 Past Surgical History Abdominal Aneurysm Repair: Yes (2012) Abdominal Surgery: Yes AICD: No Appendectomy: No Arteriovenous Shunt: No Body Medical Devices: STENTS X 4 Cardiac Surgery: Yes (stent) Cholecystectomy: Yes Coronary Artery Bypass Graft: No Coronary Stent: Yes (2009 X 2, 2010 X2) Ear Surgery: No Endocrine Surgery: No Eye Surgery: No Genitourinary Surgery: No Gynecologic Surgery: No Insulin Pump: Yes (removed) Joint Replacement: Yes (LEFT HIP 1999) Neurologic Surgery: No Oral Surgery: No Pacemaker: No Thoracic Surgery: No Other Surgery: Yes (Stent placement x 2; GB REMOVED) Social History Alcohol Use: No Tobacco Use: No (QUIT 2005) Substance Use: No Allergies-Medications (Allergen,Severity, Reaction): Coded Allergies: benazepril (Verified Allergy, Severe, ANGIOEDEMA, 04/29/17) captopril (Verified Allergy, Severe, ANGIOEDEMA, 04/29/17) enalaprilat (Verified Allergy, Severe, 04/29/17) ANGIOEDEMA fosinopril (Verified Allergy, Severe, ANGIOEDEMA, 04/29/17) lisinopril (Verified Allergy, Severe, ANGIOEDEMA, 04/29/17) quinapril (Verified Allergy, Severe, ANGIOEDEMA, 04/29/17) hydromorphone (Verified Adverse Reaction, Intermediate, ITCHING, 04/29/17) Reported Meds & Prescriptions Reported Meds & Active Scripts Active Ultram (Tramadol HCl) 50 Mg Tab 50 Mg PO Q4H PRN Flexeril (Cyclobenzaprine HCl) 10 Mg Tab 10 Mg PO TID Nifedipine ER (Nifedipine) 90 Mg Tab 90 Mg PO DAILY Hydralazine (Hydralazine HCl) 100 Mg Tab 100 Mg PO Q8H Lantus Inj (Insulin Glargine) 1,000 Unit/10 Ml Vial 75 Units SQ BID 30 Days Cardura (Doxazosin Mesylate) 2 Mg Tab 2 Mg PO DAILY Isosorbide Mononitrate ER (Isosorbide Mononitrate) 60 Mg Tab 60 Mg PO DAILY@07 Cozaar (Losartan Potassium) 50 Mg Tab 100 Mg PO DAILY Plavix (Clopidogrel Bisulfate) 75 Mg Tab 75 Mg PO DAILY Lipitor (Atorvastatin Calcium) 40 Mg Tab 80 Mg PO DAILY Reported Crestor (Rosuvastatin Calcium) 40 Mg Tab 40 Mg PO DAILY Eliquis (Apixaban) 5 Mg Tab 5 Mg PO BID Zetia (Ezetimibe) 10 Mg Tab 10 Mg PO DAILY Neupro Patch 24 HR (Rotigotine Patch 24 HR) 3 Mg/24 Hr Patch 3 Mg T-DERMAL DAILY Klonopin (Clonazepam) 2 Mg Tab 2 Mg PO BID Aspirin 81 Mg Chew 81 Mg CHEW DAILY Orphenadrine ER 12 HR (Orphenadrine Citrate) 100 Mg Tab 100 Mg PO BID Ambien (Zolpidem Tartrate) 10 Mg Tab 10 Mg PO HS PRN Novolin R Inj (Insulin Human Regular) 1,000 Unit/10 Ml Vial 0 SQ TIDACHS Sliding Scale As Directed. Nitroglycerin SL (Nitroglycerin) 0.4 Mg Subl 0.4 Mg SL DIRECTED PRN ONE TABLET UNDER THE TONGUE NEEDED FOR CHEST PAIN, MAY REPEAT EVERY FIVE MINUTES FOR A TOTAL OF 3 DOSES OR CALL 911 IF NO RELIEF Lortab (Hydrocodone-Acetaminophen) 10-325 Mg Tab 1 Tab PO Q4H PRN K-Tab (Potassium Chloride) 20 Meq Tab 20 Meq PO DAILY Coreg (Carvedilol) 25 Mg Tab 25 Mg PO BID Gabapentin 800 Mg Tab 800 Mg PO TID Review of Systems Except as stated in HPI: all other systems reviewed are Neg Physical Exam Narrative GENERAL: Well-developed middle age -[place] male patient currently in mild distress. Awake and oriented 3. SKIN: Focused skin assessment warm/dry. HEAD: Atraumatic. Normocephalic. EYES: Pupils equal and round. No scleral icterus. No injection or drainage. ENT: No nasal bleeding or discharge. Mucous membranes pink and moist. NECK: Trachea midline. No JVD. CARDIOVASCULAR: Regular rate and rhythm. No murmur appreciated. Pulses are present and equal bilaterally. RESPIRATORY: No accessory muscle use. Clear to auscultation. Breath sounds equal bilaterally. GASTROINTESTINAL: Abdomen soft, non-tender, nondistended. Hepatic and splenic margins not palpable. MUSCULOSKELETAL: No obvious deformities. No clubbing. No cyanosis. No edema. NEUROLOGICAL: Awake and alert. No obvious cranial nerve deficits. Motor grossly within normal limits. Normal speech. PSYCHIATRIC: Appropriate mood and affect; insight and judgment normal. Data Data Last Documented VS Vital Signs Date Time Temp Pulse Resp B/P (MAP) Pulse Ox O2 Delivery O2 Flow Rate FiO2 05/21/17 17:13 97 Room Air 05/21/17 17:13 05/21/17 16:53 98.6 71 18 Orders Orders Electrocardiogram (05/21/17 17:11) Ckmb (Isoenzyme) Profile (05/21/17 17:11) Complete Blood Count With Diff (05/21/17 17:11) Comprehensive Metabolic Panel (05/21/17 17:11) Magnesium (Mg) (05/21/17 17:11) Prothrombin Time / Inr (Pt) (05/21/17 17:11) Act Partial Throm Time (Ptt) (05/21/17 17:11) Troponin I (05/21/17 17:11) Chest, Single Ap (05/21/17 17:11) Ecg Monitoring (05/21/17 17:11) Bilateral Bp Monitoring (05/21/17 17:11) Iv Access Insert/Monitor (05/21/17 17:11) Oximetry (05/21/17 17:11) Oxygen Administration (05/21/17 17:11) Aspirin Chew (Aspirin Chew) (05/21/17 17:15) Nitroglycerin 2% Oint (Nitroglycerin 2% (05/21/17 17:15) Sodium Chloride 0.9% Flush (Ns Flush) (05/21/17 17:15) CKMB (05/21/17 17:15) CKMB% (05/21/17 17:15) Admit Order (Ed Use Only) (05/21/17 19:20) Labs Laboratory Tests Test 05/21/17 17:15 White Blood Count 5.3 TH/MM3 Red Blood Count 4.36 MIL/MM3 Hemoglobin 11.3 GM/DL Hematocrit 33.8 % Mean Corpuscular Volume 77.5 FL Mean Corpuscular Hemoglobin 26.0 PG Mean Corpuscular Hemoglobin Concent 33.6 % Red Cell Distribution Width 17.3 % Platelet Count 159 TH/MM3 Mean Platelet Volume 7.9 FL Neutrophils (%) (Auto) 61.1 % Lymphocytes (%) (Auto) 25.6 % Monocytes (%) (Auto) 10.3 % Eosinophils (%) (Auto) 2.7 % Basophils (%) (Auto) 0.3 % Neutrophils # (Auto) 3.2 TH/MM3 Lymphocytes # (Auto) 1.4 TH/MM3 Monocytes # (Auto) 0.5 TH/MM3 Eosinophils # (Auto) 0.1 TH/MM3 Basophils # (Auto) 0.0 TH/MM3 CBC Comment DIFF FINAL Differential Comment Prothrombin Time 11.1 SEC Prothromb Time International Ratio 1.0 RATIO Activated Partial Thromboplast Time 28.7 SEC Blood Urea Nitrogen 25 MG/DL Creatinine 2.12 MG/DL Random Glucose 368 MG/DL Total Protein 6.8 GM/DL Albumin 3.0 GM/DL Calcium Level 7.9 MG/DL Magnesium Level 2.1 MG/DL Alkaline Phosphatase 111 U/L Aspartate Amino Transf (AST/SGOT) 19 U/L Alanine Aminotransferase (ALT/SGPT) 25 U/L Total Bilirubin 0.4 MG/DL Sodium Level 138 MEQ/L Potassium Level 3.7 MEQ/L Chloride Level 103 MEQ/L Carbon Dioxide Level 25.2 MEQ/L Anion Gap 10 MEQ/L Estimat Glomerular Filtration Rate 39 ML/MIN Total Creatine Kinase 409 U/L Creatine Kinase MB 4.1 NG/ML Creatine Kinase MB % 1.0 % Troponin I 0.06 NG/ML MDM Medical Decision Making Medical Screen Exam Complete: Yes Emergency Medical Condition: Yes Medical Record Reviewed: Yes Interpretation(s) EKG shows NSR, no ST elevation or depression, and no arrhythmias. No significant T-wave inversions.\ Laboratory Tests Test 05/21/17 17:15 Red Blood Count 4.36 MIL/MM3 (4.50-5.90) Hemoglobin 11.3 GM/DL (13.0-17.0) Hematocrit 33.8 % (39.0-51.0) Mean Corpuscular Volume 77.5 FL (80.0-100.0) Mean Corpuscular Hemoglobin 26.0 PG (27.0-34.0) Red Cell Distribution Width 17.3 % (11.6-17.2) Monocytes (%) (Auto) 10.3 % (0.0-8.0) Blood Urea Nitrogen 25 MG/DL (7-18) Creatinine 2.12 MG/DL (0.60-1.30) Random Glucose 368 MG/DL (74-106) Albumin 3.0 GM/DL (3.4-5.0) Calcium Level 7.9 MG/DL (8.5-10.1) Estimat Glomerular Filtration Rate 39 ML/MIN (>89) Total Creatine Kinase 409 U/L (39-308) Creatine Kinase MB 4.1 NG/ML (0.5-3.6) Troponin I 0.06 NG/ML (0.02-0.05) Last 24 hours Impressions Chest X-Ray 05/21/17 1155 Signed Impressions: Service Date/Time: Sunday, May 21, 2017 17:14 - CONCLUSION: Right basilar linear scarring again seen. Elmer Maldonado MD Differential Diagnosis Chest pain: ACS versus dysrhythmias versus pneumonia Narrative Course Chest x-ray did not show any signs of acute processes. EKG did not show any signs of acute ST-T changes. His lab work does show mild troponin elevation of 0.06. Her review of patient's previous lab work shows this as well. At this point, considering his history, my plan would be to admit the patient for further evaluation. Hospitalist has been called on the case. Case is discussed with Dr. Molina for admission. Diagnosis Primary Impression: Chest pain, rule out acute myocardial infarction Additional Impression: Elevated troponin Admitting Information Admitting Physician Requests: Admit Onofre Jade MD May 21, 2017 17:32
[2017-05-21 17:45] LABS: AUTOMATED NEUTROPHIL # 3.2 TH/MM3 (1.8-7.7); BASOPHIL % 0.3 % (0.0-2.0); EOSINOPHIL # 0.1 TH/MM3 (0-0.4); EOSINOPHIL % 2.7 % (0.0-4.0); HEMATOCRIT 33.8 % (39.0-51.0); HEMO FLAGS DIFF FINAL; LYMPH % 25.6 % (9.0-44.0); LYMPHOCYTE # 1.4 TH/MM3 (1.0-4.8); MEAN CELL VOLUME 77.5 FL (80.0-100.0); MEAN CORPUSCULAR HGB CONC 33.6 % (32.0-36.0); MONO % 10.3 % (0.0-8.0); NEUT % 61.1 % (16.0-70.0); PLATELET COUNT 159 TH/MM3 (150-450); RED BLOOD COUNT 4.36 MIL/MM3 (4.50-5.90); RED CELL DISTRIBUTION WIDTH 17.3 % (11.6-17.2); WHITE BLOOD COUNT 5.3 TH/MM3 (4.0-11.0)
--- NOTE | 2017-05-21 17:47 | RADRPT ---
EXAM DATE/TIME: 05/21/2017 17:14 [facility] COMPARISON: CHEST SINGLE AP, March 31, 2017, 5:19. INDICATIONS : Chest pain. MEDICAL HISTORY : Aneurysm, abdominal. Hypertension coronary artery disease, pancreatitis, cerebrovascular acciden t. SURGICAL HISTORY : Abdominal aortic aneurysm repair. stents ENCOUNTER: Initial ACUITY: 1 day PAIN SCORE: 8/10 LOCATION: Bilateral chest FINDINGS: A single view of the chest demonstrates the lungs to be symmetrically aerated without evidence of mas s, infiltrate or effusion. The cardiomediastinal contours are unremarkable. Osseous structures are intact. Linear scarring right lung base. CONCLUSION: Right basilar linear scarring again seen. Elmer Maldonado MD on May 21, 2017 at 17:45 Board Certified Radiologist. This report was verified electronically.
[2017-05-21 17:53] LABS: APTT (PATIENT) 28.7 SEC (24.3-30.1); PROTHROMBIN TIME - PATIENT 11.1 SEC (9.8-11.6)
[2017-05-21 18:12] LABS: ALT (GPT) 25 U/L (12-78); ANION GAP 10 MEQ/L (5-15); AST (GOT) 19 U/L (15-37); BICARBONATE 25.2 MEQ/L (21.0-32.0); BLOOD UREA NITROGEN 25 MG/DL (7-18); CHLORIDE 103 MEQ/L (98-107); GLOMERULAR FILTRATION RATE 39 ML/MIN (>89); MAGNESIUM 2.1 MG/DL (1.5-2.5); POTASSIUM 3.7 MEQ/L (3.5-5.1); SODIUM (NA) 138 MEQ/L (136-145)
[2017-05-21 18:16] LABS: ALKALINE PHOSPHATASE 111 U/L (45-117); CREATINE KINASE 409 U/L (39-308); TOTAL BILIRUBIN ADULT 0.4 MG/DL (0.2-1.0)
[2017-05-21 18:29] LABS: CKMB 4.1 NG/ML (0.5-3.6)
[2017-05-21 19:35] VITALS: BP 165/88; PULSE 60; RESP 15; O2SAT 97
[2017-05-21] MEDS ORDERED: GLUCAGON 1 MG/ML VIAL OTHER PRN (19:45)
[2017-05-21] MEDS ORDERED: SODIUM CHLORIDE 0.9% FLUSH 10 ML FLUSH IV FLUSH PRN (19:45)
[2017-05-21] MEDS ORDERED: DEXTROSE 50% IN WATER 50 ML VIAL(D50) IV PUSH PRN (19:45)
[2017-05-21] MEDS ORDERED: NITROGLYCERIN 0.4 MG SL 25 TABS/BTL SL PRN (19:45)
[2017-05-21] MEDS ORDERED: ACETAMINOPHEN 500 MG CPLT PO PRN (19:45)
[2017-05-21] MEDS: MORPHINE SULFATE 2 MG/ML INJ IV PRN ×2 (20:15→23:43)
[2017-05-21] MEDS ORDERED: ZOLPIDEM TARTRATE 10 MG TAB PO PRN (20:45)
[2017-05-21 20:56] VITALS: BP 203/96; PULSE 57; RESP 18; TEMP 98.1; O2SAT 95
[2017-05-21] MEDS ORDERED: INSULIN DETEMIR 100 UNITS/ML VIAL SQ SCH (21:00)
--- NOTE | 2017-05-21 21:07 | HHI.HP ---
[facility] Jhonathan Harris MD Admission Diagnosis chest pain/elevated troponin Diagnoses: Travel History International Travel<30 Days: No Contact w/Intl Traveler <30 Da: No Traveled to Known Affected Are: No History of Present Illness 61-year-old male with a past medical history significant for coronary artery disease, insulin-dependent diabetes mellitus, hypertension, hyperlipidemia and chronic low back pain presents with a 1 day history of substernal chest pain/ pressure. Patient states the pain is 10/10 and is intermittent. He states it radiates up his neck. He has a significant cardiac history including stenting 2 with most recent stenting 1 year ago. His medicaid billing clerk is Dr. Brooks. He was recently cathed 1 month ago and states the study was within normal limits. The patient also complains of severe low back pain which is chronic. He sees Dr. Haddad for pain management. Patient's troponin is elevated at 0.06 however this is baseline for him. He also has acute on chronic renal insufficiency with a creatinine of 2.12, baseline 1.7. Review of Systems Denies fever or chills Denies blurry vision, otorrhea, rhinorrhea Denies sore throat and cough Chest pain per history of present illness, no shortness of breath No abdominal pain Denies constipation/diarrhea/nausea/vomiting Denies muscle pain/weakness No rashes Past Family Social History Past Medical History AAA status post repair Chronic low back pain Insulin-dependent diabetes mellitus Hypertension Hyperlipidemia History of DVT Past Surgical History Cardiac stenting 2 Cardiac catheterization [address] Brooks, per patient results were within normal limits Femoropopliteal bypass Cholecystectomy Reported Medications Reported Meds & Active Scripts Active Ultram (Tramadol HCl) 50 Mg Tab 50 Mg PO Q4H PRN Flexeril (Cyclobenzaprine HCl) 10 Mg Tab 10 Mg PO TID Nifedipine ER (Nifedipine) 90 Mg Tab 90 Mg PO DAILY Hydralazine (Hydralazine HCl) 100 Mg Tab 100 Mg PO Q8H Lantus Inj (Insulin Glargine) 1,000 Unit/10 Ml Vial 75 Units SQ BID 30 Days Cardura (Doxazosin Mesylate) 2 Mg Tab 2 Mg PO DAILY Isosorbide Mononitrate ER (Isosorbide Mononitrate) 60 Mg Tab 60 Mg PO DAILY@07 Cozaar (Losartan Potassium) 50 Mg Tab 100 Mg PO DAILY Plavix (Clopidogrel Bisulfate) 75 Mg Tab 75 Mg PO DAILY Lipitor (Atorvastatin Calcium) 40 Mg Tab 80 Mg PO DAILY Reported Crestor (Rosuvastatin Calcium) 40 Mg Tab 40 Mg PO DAILY Eliquis (Apixaban) 5 Mg Tab 5 Mg PO BID Zetia (Ezetimibe) 10 Mg Tab 10 Mg PO DAILY Neupro Patch 24 HR (Rotigotine Patch 24 HR) 3 Mg/24 Hr Patch 3 Mg T-DERMAL DAILY Klonopin (Clonazepam) 2 Mg Tab 2 Mg PO BID Orphenadrine ER 12 HR (Orphenadrine Citrate) 100 Mg Tab 100 Mg PO BID Ambien (Zolpidem Tartrate) 10 Mg Tab 10 Mg PO HS PRN Novolin R Inj (Insulin Human Regular) 1,000 Unit/10 Ml Vial 0 SQ TIDACHS Sliding Scale As Directed. Nitroglycerin SL (Nitroglycerin) 0.4 Mg Subl 0.4 Mg SL DIRECTED PRN ONE TABLET UNDER THE TONGUE NEEDED FOR CHEST PAIN, MAY REPEAT EVERY FIVE MINUTES FOR A TOTAL OF 3 DOSES OR CALL 911 IF NO RELIEF Lortab (Hydrocodone-Acetaminophen) 10-325 Mg Tab 1 Tab PO Q4H PRN K-Tab (Potassium Chloride) 20 Meq Tab 20 Meq PO DAILY Coreg (Carvedilol) 25 Mg Tab 25 Mg PO BID Gabapentin 800 Mg Tab 800 Mg PO TID Allergies: Coded Allergies: benazepril (Verified Allergy, Severe, ANGIOEDEMA, 04/29/17) captopril (Verified Allergy, Severe, ANGIOEDEMA, 04/29/17) enalaprilat (Verified Allergy, Severe, 04/29/17) ANGIOEDEMA fosinopril (Verified Allergy, Severe, ANGIOEDEMA, 04/29/17) lisinopril (Verified Allergy, Severe, ANGIOEDEMA, 04/29/17) quinapril (Verified Allergy, Severe, ANGIOEDEMA, 04/29/17) hydromorphone (Verified Adverse Reaction, Intermediate, ITCHING, 04/29/17) Family History Patient denies family history of coronary artery disease, hypertension or diabetes Social History Smokes 2 packs per day 20 years, quit 15 years ago. Remote history of alcohol , cocaine and marijuana use. Patient quit all of these 15 years ago. Denies any alcohol or illicit drugs presently. Physical Exam Vital Signs Vital Signs Date Time Temp Pulse Resp B/P (MAP) Pulse Ox O2 Delivery O2 Flow Rate FiO2 05/21/17 20:28 05/21/17 19:35 60 15 165/88 (113) 97 Room Air 05/21/17 17:13 97 Room Air 05/21/17 17:13 97 Aerosol Mask 05/21/17 17:09 96 Room Air 05/21/17 16:53 98.6 71 18 159/78 (105) 98 Physical Exam GENERAL: Obese male pacing in his room SKIN: No rashes, ecchymoses or lesions. Cool and dry. HEAD: Atraumatic. Normocephalic. No temporal or scalp tenderness. EYES: Pupils equal round and reactive. Extraocular motions intact. No scleral icterus. No injection or drainage. ENT: Nose without bleeding, purulent drainage or septal hematoma. Throat without erythema, tonsillar hypertrophy or exudate. Uvula midline. Airway patent. NECK: Trachea midline. No JVD or lymphadenopathy. Supple, nontender, no meningeal signs. CARDIOVASCULAR: Regular rate and rhythm without murmurs, gallops, or rubs. RESPIRATORY: Clear to auscultation. Breath sounds equal bilaterally. No wheezes , rales, or rhonchi. GASTROINTESTINAL: Abdomen soft, non-tender, nondistended. No hepato-splenomegaly , or palpable masses. No guarding. MUSCULOSKELETAL: Extremities without clubbing, cyanosis, or edema. No joint tenderness, effusion, or edema noted. No calf tenderness. Negative Homans sign bilaterally. NEUROLOGICAL: Awake and alert. Cranial nerves II through XII intact. Motor and sensory grossly within normal limits. Normal speech. Laboratory Laboratory Tests Test 05/21/17 17:15 White Blood Count 5.3 Red Blood Count 4.36 Hemoglobin 11.3 Hematocrit 33.8 Mean Corpuscular Volume 77.5 Mean Corpuscular Hemoglobin 26.0 Mean Corpuscular Hemoglobin Concent 33.6 Red Cell Distribution Width 17.3 Platelet Count 159 Mean Platelet Volume 7.9 Neutrophils (%) (Auto) 61.1 Lymphocytes (%) (Auto) 25.6 Monocytes (%) (Auto) 10.3 Eosinophils (%) (Auto) 2.7 Basophils (%) (Auto) 0.3 Neutrophils # (Auto) 3.2 Lymphocytes # (Auto) 1.4 Monocytes # (Auto) 0.5 Eosinophils # (Auto) 0.1 Basophils # (Auto) 0.0 CBC Comment DIFF FINAL Differential Comment Prothrombin Time 11.1 Prothromb Time International Ratio 1.0 Activated Partial Thromboplast Time 28.7 Blood Urea Nitrogen 25 Creatinine 2.12 Random Glucose 368 Total Protein 6.8 Albumin 3.0 Calcium Level 7.9 Magnesium Level 2.1 Alkaline Phosphatase 111 Aspartate Amino Transf (AST/SGOT) 19 Alanine Aminotransferase (ALT/SGPT) 25 Total Bilirubin 0.4 Sodium Level 138 Potassium Level 3.7 Chloride Level 103 Carbon Dioxide Level 25.2 Anion Gap 10 Estimat Glomerular Filtration Rate 39 Total Creatine Kinase 409 Creatine Kinase MB 4.1 Creatine Kinase MB % 1.0 Troponin I 0.06 Result Diagram: 05/21/17 17105/21/171714 Caprini VTE Risk Assessment Caprini VTE Risk Assessment: Mod/High Risk (score >= 2) Caprini Risk Assessment Model Point Value = 1 Point Value = 2 Point Value = 3 Point Value = 5 Age 41-60 Minor surgery BMI > 25 kg/m2 Swollen legs Varicose veins or History of unexplained or recurrent spontaneous Oral contraceptives or hormone replacement Sepsis (< 1 month) Serious lung disease, including pneumonia (< 1 month) Abnormal pulmonary function Acute myocardial infarction Congestive heart failure (< 1 month) History of inflammatory bowel disease Medical patient at bed rest Age 61-74 Arthroscopic surgery Major open surgery (> 45 min) Laparoscopic surgery (> 45 min) Malignancy Confined to bed (> 72 hours) Immobilizing plaster cast Central venous access Age >= 75 History of VTE Family history of VTE Factor V Leiden Prothrombin [id number] Lupus anticoagulant Anticardiolipin antibodies Elevated serum homocysteine Heparin-induced thrombocytopenia Other congenital or acquired thrombophilia Stroke (< 1 month) Elective arthroplasty Hip, pelvis, or leg fracture Acute spinal cord injury (< 1 month) Prophylaxis Regimen Total Risk Factor Score Risk Level Prophylaxis Regimen 0-1 Low Early ambulation 2 Moderate Order ONE of the following: *Sequential Compression Device (SCD) *Heparin 5000 units SQ BID 3-4 Higher Order ONE of the following medications: *Heparin 5000 units SQ TID *Enoxaparin/Lovenox 40 mg SQ daily (WT < 150 kg, CrCl > 30 mL/min) *Enoxaparin/Lovenox 30 mg SQ daily (WT < 150 kg, CrCl > 10-29 mL/min) *Enoxaparin/Lovenox 30 mg SQ BID (WT < 150 kg, CrCl > 30 mL/min) AND/OR *Sequential Compression Device (SCD) 5 or more Highest Order ONE of the following medications: *Heparin 5000 units SQ TID (Preferred with Epidurals) *Enoxaparin/Lovenox 40 mg SQ daily (WT < 150 kg, CrCl > 30 mL/min) *Enoxaparin/Lovenox 30 mg SQ daily (WT < 150 kg, CrCl > 10-29 mL/min) *Enoxaparin/Lovenox 30 mg SQ BID (WT < 150 kg, CrCl > 30 mL/min) AND *Sequential Compression Device (SCD) Assessment and Plan Assessment and Plan 61-year-old male with past medical history significant for severe coronary artery disease, AAA, hypertension, hyperlipidemia and insulin-dependent diabetes mellitus presents with a one-day history of chest pain, elevated troponin and acute on chronic kidney injury. 1. Chest pain ACS rule out pending Serial troponins/EKGs Patient's medicaid billing clerk is Dr. Brooks, he is status post cardiac catheterization 1 month ago Suspect chest pain is muscular in origin, will consult cardiology if ACS rule out positive Elevated troponin at baseline 2. Acute on chronic kidney injury Gentle hydration Follow BMP in the a.m. 3. Insulin-dependent diabetes mellitus Patient normally on 80 units of Lantus twice a day Will give 40 units tonight as patient has been nothing by mouth all day and supplement with SSI 4. Hypertension Continue home medications including Coreg, Cardura, hydralazine, Imdur, losartan , nifedipine 5. Hyperlipidemia Continue home Zetia and Crestor FEN Heart healthy diet Electrolytes replete when necessary Anticoagulated on Eliquis and Plavix Aaliyah Molina MD May 21, 2017 21:07
--- NOTE | 2017-05-21 21:09 | EKG ---
Date Performed: 05/21/2017 Time Performed: 17:08:50 PTAGE: 61 years EKG: Sinus rhythm NORMAL ECG PREVIOUS TRACING : 03/31/2017 04.29 No significant change from previous tracing noted. DOCTOR: Raz Faustin Interpretating Date/Time 05/21/2017 21:08:31
[2017-05-21] MEDS: APIXABAN 5 MG TABLET PO SCH (21:32)
[2017-05-21] MEDS: CARVEDILOL 12.5 MG TAB PO SCH (21:32)
[2017-05-21] MEDS ORDERED: HEPARIN SODIUM - SQ 10,000 UNITS/ML VIAL SQ SCH (22:00)
[2017-05-21 22:14] VITALS: BP 190/93; PULSE 65; RESP 18; TEMP 98.1; O2SAT 97
[2017-05-21] MEDS: hydrALAZINE HCL 100 MG TAB PO SCH (22:16)
[2017-05-21] MEDS: SODIUM CHLOR 0.9% 1000 ML INJ 1,000 ML IV SCH (22:16)
[2017-05-21] MEDS: INSULIN ASPART SUPPLEMENTAL SCALE SQ SCH (22:22)
[2017-05-21 23:35] VITALS: BP 138/70; PULSE 61; RESP 18; O2SAT 97
[2017-05-22] VITALS (10 sets, daily range): BP systolic 162–198; BP diastolic 75–93; PULSE 59–84; RESP 18–24; TEMP 97.6–98.7; O2SAT 94–97
[2017-05-22 00:41] LABS: CKMB 3.5 NG/ML (0.5-3.6)
[2017-05-22] MEDS: MORPHINE SULFATE 2 MG/ML INJ IV PRN ×5 (03:47→21:33)
[2017-05-22] MEDS: hydrALAZINE HCL 100 MG TAB PO SCH ×3 (06:13→20:35)
[2017-05-22] MEDS: SODIUM CHLOR 0.9% 1000 ML INJ 1,000 ML IV SCH (06:14)
[2017-05-22] MEDS ORDERED: ISOSORBIDE MONONITRATE 60 MG TAB PO SCH (07:00)
[2017-05-22] MEDS: CYCLOBENZAPRINE HCL 10 MG TAB PO SCH ×3 (07:58→18:10)
[2017-05-22] MEDS: CARVEDILOL 12.5 MG TAB PO SCH ×2 (07:59→20:35)
[2017-05-22] MEDS: EZETIMIBE 10 MG TAB PO SCH (07:59)
[2017-05-22] MEDS: POTASSIUM CHLORIDE 20 MEQ CONTROLLED RELEASE TAB PO SCH (07:59)
[2017-05-22] MEDS: DOXAZOSIN MESYLATE 2 MG TAB PO SCH (07:59)
[2017-05-22] MEDS: LOSARTAN 50 MG TAB PO SCH (08:00)
[2017-05-22] MEDS: CLOPIDOGREL 75 MG TAB PO SCH (08:00)
[2017-05-22] MEDS: APIXABAN 5 MG TABLET PO SCH ×2 (08:00→20:35)
[2017-05-22] MEDS: GABAPENTIN 400 MG CAP PO SCH ×2 (08:01→13:24)
--- NOTE | 2017-05-22 08:13 | EKG ---
Date Performed: 05/22/2017 Time Performed: 06:10:00 PTAGE: 61 years EKG: Sinus rhythm LEFT AXIS DEVIATION LOW QRS VOLTAGE IN PRECORDIAL LEADS POSSIBLE RIGHT VENTRICULAR CONDUCTION DELAY ABNORMAL ECG PREVIOUS TRACING : 05/21/2017 23.36 Compared to previous tracing, axis has shifted leftward. DOCTOR: Raz Faustin Interpretating Date/Time 05/22/2017 08:12:17
--- NOTE | 2017-05-22 08:21 | EKG ---
Date Performed: 05/21/2017 Time Performed: 23:36:15 PTAGE: 61 years EKG: Sinus rhythm NONSPECIFIC T-WAVE ABNORMALITY BORDERLINE ECG PREVIOUS TRACING : 05/21/2017 17.08 No significant change from previous tracing noted. DOCTOR: Raz Faustin Interpretating Date/Time 05/22/2017 08:20:39
[2017-05-22] MEDS ORDERED: NIFEdipine 90 MG SUSTAINED RELEASE TAB PO SCH (09:00)
[2017-05-22] MEDS ORDERED: INSULIN DETEMIR 100 UNITS/ML VIAL SQ SCH (09:00)
[2017-05-22] MEDS ORDERED: NON-FORMULARY DRUG (Rosuvastatin (Crestor) 40 MG) PO SCH (09:00)
[2017-05-22] MEDS: INSULIN ASPART SUPPLEMENTAL SCALE SQ SCH ×4 (09:54→21:32)
--- NOTE | 2017-05-22 10:29 | HHI.PR ---
Subjective Remarks Follow-up for chest pain in a patient with a history of CAD, hypertension, hyperlipidemia, diabetes mellitus. Patient is currently doing well. Denies any chest pain, shortness of breath, fever or chills. He remained somewhat hypertensive. Objective Vitals Vital Signs Date Time Temp Pulse Resp B/P (MAP) Pulse Ox O2 Delivery O2 Flow Rate FiO2 05/22/17 07:28 98.1 72 24 176/85 (115) 94 05/22/17 06:11 84 198/93 (128) 05/22/17 04:08 18 05/22/17 04:04 67 05/22/17 03:14 98.0 71 18 167/75 (105) 94 05/22/17 00:12 59 05/21/17 23:35 61 18 138/70 (92) 97 05/21/17 22:14 98.1 65 18 190/93 (125) 97 05/21/17 20:56 98.1 57 18 203/96 (131) 95 05/21/17 20:28 05/21/17 19:35 60 15 165/88 (113) 97 Room Air 05/21/17 17:13 97 Room Air 05/21/17 17:13 97 Aerosol Mask 05/21/17 17:09 96 Room Air 05/21/17 16:53 98.6 71 18 159/78 (105) 98 I/O 05/21/17 05/21/17 05/21/17 05/22/17 05/22/17 05/22/17 07:00 15:00 23:00 07:00 15:00 23:00 Intake Total 1000 ml Balance 1000 ml Intake IV Total 1000 ml Result Diagram: 05/21/17 1715 05/21/171714 Imaging Last Impressions Chest X-Ray 05/21/171710 Signed Impressions: Service Date/Time: Sunday, May 21, 2017 17:14 - CONCLUSION: Right basilar linear scarring again seen. Elmer Maldonado MD Objective Remarks GENERAL: Alert, oriented 3, NAD. SKIN: Warm and dry. HEAD: Normocephalic. EYES: No scleral icterus. No injection or drainage. NECK: Supple, trachea midline. No JVD or lymphadenopathy. CARDIOVASCULAR: Regular rate and rhythm without murmurs, gallops, or rubs. RESPIRATORY: Breath sounds equal bilaterally. No accessory muscle use. GASTROINTESTINAL: Abdomen soft, non-tender, nondistended. MUSCULOSKELETAL: No cyanosis, or edema. BACK: Nontender without obvious deformity. No CVA tenderness. Procedures None A/P Assessment and Plan 61-year-old male with past medical history significant for severe coronary artery disease, AAA, hypertension, hyperlipidemia and insulin-dependent diabetes mellitus presents with a one-day history of chest pain, elevated troponin and acute on chronic kidney injury. - Chest pain - Accelerated hypertension - Chest pain is likely due to accelerated hypertension. Troponins are 0.06, 0.05. - Patient is currently on hydralazine 100 mg every 8 hours, losartan 100 mg by mouth daily, carvedilol 25 mg by mouth twice a day, nifedipine 90 mg daily. - We'll change nifedipine to 60 mg twice a day. Add Torsemide 10 mg twice a day. - Patient is a strongly advised to reduce salt intake. - Coronary artery disease - History of DVT - Continue Plavix 75 mg daily, apixaban 5 mg twice a day - Continue atorvastatin 80 mg daily - Diabetes mellitus - Diabetic neuropathy - We'll reduce gabapentin to 200 mg 3 times a day. - Continue Levemir, increase to Levemir 60 units BID. Continue sliding scale insulin. Add Aspart 7 units TIDAC. Full code. Apixaban. Belia Todd DO May 22, 2017 10:29
[2017-05-22] MEDS: ATORVASTATIN 80 MG TAB PO SCH (12:17)
[2017-05-22] MEDS ORDERED: PILL SPLITTER OTHER PRN (17:45)
[2017-05-22] MEDS ORDERED: GABAPENTIN 400 MG CAP PO SCH (18:00)
[2017-05-22] MEDS: GABAPENTIN 100 MG CAP PO SCH (18:10)
[2017-05-22] MEDS: INSULIN ASPART 1,000 UNITS/10 ML VIAL SQ SCH (18:11)
[2017-05-22] MEDS: NIFEdipine 60 MG SUSTAINED RELEASE TAB PO SCH (20:34)
[2017-05-22] MEDS: INSULIN DETEMIR 100 UNITS/ML VIAL SQ SCH (21:33)
[2017-05-22] MEDS ORDERED: FURO1TAB62 PO (21:45)
[2017-05-22] MEDS ORDERED: FUROSEMIDE 20 MG TAB PO ONE (22:00)
[2017-05-23] VITALS (7 sets, daily range): BP systolic 150–182; BP diastolic 80–91; PULSE 63–76; RESP 18–20; TEMP 97.7–98.2; O2SAT 92–96
[2017-05-23] MEDS: MORPHINE SULFATE 2 MG/ML INJ IV PRN ×4 (01:02→14:02)
[2017-05-23] MEDS: hydrALAZINE HCL 100 MG TAB PO SCH ×2 (06:03→14:33)
[2017-05-23] MEDS ORDERED: ISOSORBIDE MONONITRATE 60 MG TAB PO SCH (07:00)
[2017-05-23] MEDS: INSULIN ASPART SUPPLEMENTAL SCALE SQ SCH ×2 (08:00→12:30)
[2017-05-23] MEDS: CYCLOBENZAPRINE HCL 10 MG TAB PO SCH ×2 (08:21→14:33)
[2017-05-23] MEDS: CARVEDILOL 12.5 MG TAB PO SCH (08:21)
[2017-05-23] MEDS: EZETIMIBE 10 MG TAB PO SCH (08:21)
[2017-05-23] MEDS: LOSARTAN 50 MG TAB PO SCH (08:21)
[2017-05-23] MEDS: NIFEdipine 60 MG SUSTAINED RELEASE TAB PO SCH (08:22)
[2017-05-23] MEDS: APIXABAN 5 MG TABLET PO SCH (08:22)
[2017-05-23] MEDS: GABAPENTIN 100 MG CAP PO SCH ×3 (08:22→14:34)
[2017-05-23] MEDS: CLOPIDOGREL 75 MG TAB PO SCH (08:22)
[2017-05-23] MEDS: ATORVASTATIN 80 MG TAB PO SCH (08:22)
[2017-05-23] MEDS: DOXAZOSIN MESYLATE 2 MG TAB PO SCH (08:23)
[2017-05-23] MEDS: INSULIN ASPART 1,000 UNITS/10 ML VIAL SQ SCH ×2 (08:23→12:45)
[2017-05-23] MEDS: POTASSIUM CHLORIDE 20 MEQ CONTROLLED RELEASE TAB PO SCH (08:23)
[2017-05-23] MEDS: INSULIN DETEMIR 100 UNITS/ML VIAL SQ SCH (08:24)
[2017-05-23] MEDS ORDERED: FUROSEMIDE 20 MG TAB PO SCH (09:00)
[2017-05-23] MEDS ORDERED: ISOS60TA PO (15:34)
[2017-05-23] MEDS ORDERED: GABA100C4 PO (15:34)
[2017-05-23] MEDS ORDERED: NIFE60TA8 PO (15:34)
[2017-05-23] MEDS ORDERED: TORS10TA2 PO (15:41)
--- NOTE | 2017-05-23 15:57 | HHI.PR ---
Subjective Remarks Follow-up for chest pain in a patient with a history of CAD, hypertension, hyperlipidemia, diabetes mellitus. Patient is doing well. No chest pain, SOB, fever, chills. Family at bedside. Objective Vitals Vital Signs Date Time Temp Pulse Resp B/P (MAP) Pulse Ox O2 Delivery O2 Flow Rate FiO2 05/23/17 15:27 98.2 76 20 180/89 (119) 94 05/23/17 11:44 97.7 63 20 163/81 (108) 96 05/23/17 07:49 18 05/23/17 07:48 98.0 72 20 174/91 (118) 92 05/23/17 02:37 98.2 67 18 182/87 (118) 95 05/22/17 20:04 98.7 82 18 192/92 (125) 97 I/O 05/22/17 05/22/17 05/22/17 05/23/17 05/23/17 05/23/17 07:00 15:00 23:00 07:00 15:00 23:00 Intake Total 1000 ml 1002 ml Balance 1000 ml 1002 ml Intake IV Total 1000 ml 1002 ml Result Diagram: 05/21/17171405/21/171714 Imaging Last Impressions Chest X-Ray 05/21/171710 Signed Impressions: Service Date/Time: Sunday, May 21, 2017 17:14 - CONCLUSION: Right basilar linear scarring again seen. Elmer Maldonado MD Objective Remarks GENERAL: Alert, oriented 3, NAD. SKIN: Warm and dry. HEAD: Normocephalic. EYES: No scleral icterus. No injection or drainage. NECK: Supple, trachea midline. No JVD or lymphadenopathy. CARDIOVASCULAR: Regular rate and rhythm without murmurs, gallops, or rubs. RESPIRATORY: Breath sounds equal bilaterally. No accessory muscle use. GASTROINTESTINAL: Abdomen soft, non-tender, nondistended. MUSCULOSKELETAL: No cyanosis, or edema. BACK: Nontender without obvious deformity. No CVA tenderness. Procedures None A/P Problem List: (1) Accelerated hypertension ICD Code: I10 - Essential (primary) hypertension Status: Acute (2) Chronic chest pain ICD Code: R07.9 - Chest pain, unspecified; G89.29 - Other chronic pain Status: Acute (3) CAD (coronary artery disease) ICD Code: I25.10 - Atherosclerotic heart disease of [place] coronary artery without angina pectoris Status: Chronic Assessment and Plan 61-year-old male with past medical history significant for severe coronary artery disease, AAA, hypertension, hyperlipidemia and insulin-dependent diabetes mellitus presents with a one-day history of chest pain, elevated troponin and acute on chronic kidney injury. - Chest pain - Accelerated hypertension - Chest pain is likely due to accelerated hypertension. Troponins are 0.06, 0.05. - Patient is currently on hydralazine 100 mg every 8 hours, losartan 100 mg by mouth daily, carvedilol 25 mg by mouth twice a day, nifedipine 90 mg daily. - We'll change nifedipine to 60 mg twice a day. Add Torsemide 10 mg twice a day. - Patient is a strongly advised to reduce salt intake. Also advised patient to change lifestyle, increase exercise to loose weight. - Coronary artery disease - History of DVT - Continue Plavix 75 mg daily, apixaban 5 mg twice a day - Continue atorvastatin 80 mg daily - Diabetes mellitus - Diabetic neuropathy - We'll reduce gabapentin to 200 mg 3 times a day. - Continue Levemir, increase to Levemir 60 units BID. Continue sliding scale insulin. Add Aspart 7 units TIDAC. - Continue home insulin regimen on discharge. Full code. Apixaban. Belia Todd DO May 23, 2017 3:57 pm
== END 2017-05-23 17:51 | disposition home or self-care (01) ==
LOC: NEPC 16:51 → NEDA 19:21 → NEPGCP 20:25
PROVIDERS: ADMIT Hospitalist; ATTEND Hospitalist
DX: I25.10 Atherosclerotic heart disease of native coronary artery without angina pectoris (principal); I10 Essential (primary) hypertension; N17.9 Acute kidney failure, unspecified; E78.5 Hyperlipidemia, unspecified; E11.40 Type 2 diabetes mellitus with diabetic neuropathy, unspecified; D57.3 Sickle-cell trait; R74.8 Abnormal levels of other serum enzymes; Z95.5 Presence of coronary angioplasty implant and graft; Z79.4 Long term (current) use of insulin; Z79.01 Long term (current) use of anticoagulants; Z86.718 Personal history of other venous thrombosis and embolism; Z86.73 Personal history of transient ischemic attack (TIA), and cerebral infarction without residual deficits; Z87.891 Personal history of nicotine dependence
CPT/HCPCS: 71010; 80053; 82550; 82552; 82948; 83735; 84484; 85025; 85610; 85730; 93005; 96361; 96372; 96374; 96376; 99285; G0378; J1815; J2270; J7030

== ENCOUNTER 2017-06-13 19:27 | Emergency (ER) | payer OTHER, MEDICAID ==
[~2017-06-13 19:27] MED LIST changes: -ASPI-516 CHEW; +GABA100C4 PO; -GABA800T PO; -LIPI40TA PO; +NIFE60TA8 PO; -NIFE90TA2 PO; -ORPH100T PO; -POTA1TAB4 PO; +TORS10TA2 PO; -TRAM50 PO
[2017-06-13 19:28] VITALS: BP 157/81; PULSE 63; RESP 16; TEMP 97.8; O2SAT 98
[2017-06-13 20:03] VITALS: BP 138/71; PULSE 58; RESP 20; O2SAT 97
[2017-06-13] MEDS ORDERED: SODIUM CHLORIDE 0.9% FLUSH 10 ML FLUSH IVF PRN (20:15)
[2017-06-13] MEDS ORDERED: NITROGLYCERIN 0.4 MG SL 25 TABS/BTL SL ONE (20:15)
--- NOTE | 2017-06-13 20:17 | PD ---
HPI Chief Complaint: Chest Pain Time Seen by Provider: 20:06 Travel History International Travel<30 days: No Contact w/Intl Traveler<30days: No Traveled to known affect area: No History of Present Illness HPI The patient is a 62 year old male who presents to the [facility] emergency department with a history of cramping in the chest, low back, legs that began after rolling over in bed. The patient has a prior history of coronary artery disease with right coronary artery stenting 2, insulin-dependent diabetes mellitus, hypertension, hyperlipidemia, chronic low back pain, and an abdominal aortic aneurysm. His last cardiac catheterization was done on March 31, 2017 which showed mild coronary artery disease with patent RCA stenting 2. The patient at baseline has a history of elevated troponins thought to be related to his renal insufficiency and poorly controlled hypertension. The patient was last admitted to the hospital for rule out serial cardiac enzyme protocol on May 21, 2017. At that time he was again ruled out with serial enzymes. On he had a cough that has since improved. The patient denies any history of fever, neck pain, chest pain, abdominal pain, vomiting, diarrhea, urinary symptoms, or neurologic symptoms. His last BM was the day before yesterday. He is normally on Norflex for muscle spasm which he gets injections of PRN in his doctors office. He reports that this last week his doctor reported that they could not give him his usual weekly injection. [facility] Past Medical History Narrative Medical The patient's past medical history is significant for an abdominal aortic aneurysm status post repair, chronic low back pain, history of insulin- dependent diabetes mellitus, hypertension, hyperlipidemia, history of DVT chronically on anticoagulation, history of chronic renal insufficiency, history of coronary artery disease with 2 prior stents placed, history of sleep apnea on CPAP. Hx Anticoagulant Therapy: Yes (ELOQUIS) AAA: Yes (JUL 2011/ ) Anemia: Yes Arthritis: No Asthma: No Autoimmune Disease: No Blood Disorders: Yes (SICKLE CELL TRAIT) Anxiety: No Depression: No Heart Rhythm Problems: Yes Cancer: No Cardiac Catheterization: Yes (2016) Cardiovascular Problems: Yes High Cholesterol: Yes Chemotherapy: No Chest Pain: Yes Congestive Heart Failure: No COPD: No Cerebrovascular Accident: Yes Coronary Artery Disease: Yes Diabetes: Yes Patient Takes Glucophage: No Diminished Hearing: No Deep Vein Thrombosis: Yes (LT LEG) Endocrine: Yes GERD: No Glaucoma: No Genitourinary: No Headaches: No Hepatitis: No Hiatal Hernia: No Heparin Induced Thrombocytopen: No Hypertension: Yes Immune Disorder: No Implanted Vascular Access Dvce: Yes (RIGHT INSULIN PUMP removed) Kidney Stones: No Musculoskeletal: No Neurologic: No Psychiatric: No Reproductive: No Respiratory: Yes Immunizations Current: Yes Migraines: No Myocardial Infarction: No Pancreatitis: Yes Radiation Therapy: No Renal Failure: No Seizures: No Sickle Cell Disease: Yes (TRAIT) Sleep Apnea: Yes Thyroid Disease: Yes Ulcer: No Tetanus Vaccination: > 5 Years Influenza Vaccination: No PNEUMOCCOCAL Vaccine (Year): 3 Past Surgical History Narrative Surgical The patient's past surgical history is significant for cardiac catheterization with stent placement 2, femoral-popliteal bypass, abdominal aortic aneurysm status post repair, cholecystectomy. Abdominal Aneurysm Repair: Yes (2012) Abdominal Surgery: Yes AICD: No Appendectomy: No Arteriovenous Shunt: No Body Medical Devices: STENTS Cardiac Surgery: Yes (stentX5) Cholecystectomy: Yes Coronary Artery Bypass Graft: No Coronary Stent: Yes (2009 X 2, 2010 X2) Ear Surgery: No Endocrine Surgery: No Eye Surgery: No Genitourinary Surgery: No Gynecologic Surgery: No Insulin Pump: Yes (removed) Joint Replacement: Yes (LEFT HIP 1999) Neurologic Surgery: No Oral Surgery: No Pacemaker: No Thoracic Surgery: No Other Surgery: Yes (GB REMOVED) Social History Alcohol Use: No Tobacco Use: No (QUIT 2005) Substance Use: No Allergies-Medications (Allergen,Severity, Reaction): Coded Allergies: benazepril (Verified Allergy, Severe, ANGIOEDEMA, 06/13/17) captopril (Verified Allergy, Severe, ANGIOEDEMA, 06/13/17) enalaprilat (Verified Allergy, Severe, 06/13/17) ANGIOEDEMA fosinopril (Verified Allergy, Severe, ANGIOEDEMA, 06/13/17) lisinopril (Verified Allergy, Severe, ANGIOEDEMA, 06/13/17) quinapril (Verified Allergy, Severe, ANGIOEDEMA, 06/13/17) hydromorphone (Verified Adverse Reaction, Intermediate, ITCHING, 06/13/17) Reported Meds & Prescriptions Reported Meds & Active Scripts Active Torsemide 10 Mg Tab 10 Mg PO BID Gabapentin 100 Mg Cap 200 Mg PO TID Nifedipine ER 24 HR (Nifedipine) 60 Mg Tab 60 Mg PO Q12HR Isosorbide Mononitrate ER (Isosorbide Mononitrate) 60 Mg Tab 90 Mg PO DAILY@07 Flexeril (Cyclobenzaprine HCl) 10 Mg Tab 10 Mg PO TID Hydralazine (Hydralazine HCl) 100 Mg Tab 100 Mg PO Q8H Lantus Inj (Insulin Glargine) 1,000 Unit/10 Ml Vial 75 Units SQ BID 30 Days Cardura (Doxazosin Mesylate) 2 Mg Tab 2 Mg PO DAILY Cozaar (Losartan Potassium) 50 Mg Tab 100 Mg PO DAILY Plavix (Clopidogrel Bisulfate) 75 Mg Tab 75 Mg PO DAILY Reported Crestor (Rosuvastatin Calcium) 40 Mg Tab 40 Mg PO DAILY Eliquis (Apixaban) 5 Mg Tab 5 Mg PO BID Zetia (Ezetimibe) 10 Mg Tab 10 Mg PO DAILY Neupro Patch 24 HR (Rotigotine Patch 24 HR) 3 Mg/24 Hr Patch 3 Mg T-DERMAL DAILY Klonopin (Clonazepam) 2 Mg Tab 2 Mg PO BID Ambien (Zolpidem Tartrate) 10 Mg Tab 10 Mg PO HS PRN Novolin R Inj (Insulin Human Regular) 1,000 Unit/10 Ml Vial 0 SQ TIDACHS Sliding Scale As Directed. Nitroglycerin SL (Nitroglycerin) 0.4 Mg Subl 0.4 Mg SL DIRECTED PRN ONE TABLET UNDER THE TONGUE NEEDED FOR CHEST PAIN, MAY REPEAT EVERY FIVE MINUTES FOR A TOTAL OF 3 DOSES OR CALL 911 IF NO RELIEF Lortab (Hydrocodone-Acetaminophen) 10-325 Mg Tab 1 Tab PO Q4H PRN Coreg (Carvedilol) 25 Mg Tab 25 Mg PO BID Review of Systems Except as stated in HPI: all other systems reviewed are Neg General / Constitutional: No: Fever Eyes: No: Visual changes HENT: No: Headaches, Congestion Cardiovascular: Positive: Chest Pain or Discomfort (chest wall pain), No: Dyspnea on exertion, Edema Respiratory: Positive: Cough, No: Shortness of Breath Gastrointestinal: No: Abdominal Pain Genitourinary: No: Dysuria Musculoskeletal: Positive: Myalgias, Cramping, Pain Skin: No Rash Neurologic: No: Weakness, Focal Abnormalities, Change in Mentation, Slurred Speech, Sensory Disturbance Psychiatric: No: Depression Endocrine: No: Polydipsia Hematologic/Lymphatic: No: Easy Bruising Physical Exam Narrative General: The patient is a well-developed well-nourished male in no acute distress. Head and Neck exam: Head is normocephalic atraumatic. Eyes: EOMI, pupils are equal round and reactive to light. Nose: Midline septum with pink mucous membranes Mouth: Dentition unremarkable. Moist mucus membranes. Posterior oropharynx is not erythematous. No tonsillar hypertrophy. Uvula midline. Airway patent. Neck: No palpable lymphadenopathy. No nuchal rigidity. No thyromegaly. Cardiovascular: Regular rate and rhythm without murmurs, gallops, or rubs. The patient reports chest wall tenderness on palpation mainly when he flexes his pectoral muscles and left side. Lungs: Clear to auscultation bilaterally. No wheezes, rhonchi, or rales. Abdomen: Soft, without tenderness to palpation in all 4 quadrants of the abdomen. No guarding, rebound, or rigidity. Normal bowel sounds are audible. No tenderness on palpation of McBurney's point. Extremities: No clubbing or cyanosis. The patient has trace pedal edema bilateral lower extremities. He reports that his edema is actually improved compared to previously. 2+ pulses in all 4 extremities. No calf tenderness on palpation. Back: No spinous process tenderness to palpation. No costovertebral angle tenderness to palpation. Neurologic Exam: Grossly nonfocal. Skin Exam: No rash noted. Intact skin that is warm and dry. Data Data Last Documented VS Vital Signs Date Time Temp Pulse Resp B/P (MAP) Pulse Ox O2 Delivery O2 Flow Rate FiO2 06/13/17 20:03 58 20 138/71 (93) 97 Nasal Cannula 2.00 06/13/17 19:28 97.8 Orders Orders Electrocardiogram (06/13/17 20:14) B-Type Natriuretic Peptide (06/13/17 20:14) Ckmb (Isoenzyme) Profile (06/13/17 20:14) Complete Blood Count With Diff (06/13/17 20:14) Comprehensive Metabolic Panel (06/13/17 20:14) Magnesium (Mg) (06/13/17 20:14) Prothrombin Time / Inr (Pt) (06/13/17 20:14) Act Partial Throm Time (Ptt) (06/13/17 20:14) Troponin I (06/13/17 20:14) Lipase (06/13/17 20:14) Chest, Single Ap (06/13/17 20:14) Ecg Monitoring (06/13/17 20:14) Bilateral Bp Monitoring (06/13/17 20:14) Iv Access Insert/Monitor (06/13/17 20:14) Oximetry (06/13/17 20:14) Oxygen Administration (06/13/17 20:14) Sodium Chloride 0.9% Flush (Ns Flush) (06/13/17 20:15) Nitroglycerin Sl (Nitrostat Sl) (06/13/17 20:15) CKMB (06/13/17 20:00) CKMB% (06/13/17 20:00) Orphenadrine Inj (Norflex Inj) (06/13/17 21:45) Sodium Chlorid 0.9% 500 Ml Inj (Ns 500 M (06/13/17 21:45) Insulin Human Regular Inj (Novolin R Inj (06/13/17 21:45) Blood Glucose (06/13/17 22:04) Labs Laboratory Tests Test 06/13/17 20:00 White Blood Count 6.8 TH/MM3 Red Blood Count 4.47 MIL/MM3 Hemoglobin 11.3 GM/DL Hematocrit 34.9 % Mean Corpuscular Volume 78.1 FL Mean Corpuscular Hemoglobin 25.3 PG Mean Corpuscular Hemoglobin Concent 32.4 % Red Cell Distribution Width 17.5 % Platelet Count 199 TH/MM3 Mean Platelet Volume 8.0 FL Neutrophils (%) (Auto) 65.1 % Lymphocytes (%) (Auto) 17.9 % Monocytes (%) (Auto) 14.0 % Eosinophils (%) (Auto) 2.5 % Basophils (%) (Auto) 0.5 % Neutrophils # (Auto) 4.4 TH/MM3 Lymphocytes # (Auto) 1.2 TH/MM3 Monocytes # (Auto) 0.9 TH/MM3 Eosinophils # (Auto) 0.2 TH/MM3 Basophils # (Auto) 0.0 TH/MM3 CBC Comment DIFF FINAL Differential Comment Prothrombin Time 11.5 SEC Prothromb Time International Ratio 1.0 RATIO Activated Partial Thromboplast Time 29.6 SEC Blood Urea Nitrogen 31 MG/DL Creatinine 2.50 MG/DL Random Glucose 453 MG/DL Total Protein 7.7 GM/DL Albumin 2.9 GM/DL Calcium Level 8.5 MG/DL Magnesium Level 2.0 MG/DL Alkaline Phosphatase 109 U/L Aspartate Amino Transf (AST/SGOT) 14 U/L Alanine Aminotransferase (ALT/SGPT) 19 U/L Total Bilirubin 0.3 MG/DL Sodium Level 133 MEQ/L Potassium Level 4.0 MEQ/L Chloride Level 98 MEQ/L Carbon Dioxide Level 29.3 MEQ/L Anion Gap 6 MEQ/L Estimat Glomerular Filtration Rate 32 ML/MIN Total Creatine Kinase 150 U/L Creatine Kinase MB 1.6 NG/ML Troponin I 0.02 NG/ML B-Type Natriuretic Peptide 17 PG/ML Lipase 129 U/L [facility] Medical Decision Making Medical Screen Exam Complete: Yes Emergency Medical Condition: Yes Medical Record Reviewed: Yes Interpretation(s) Last Impressions Chest X-Ray 06/13/172013 Signed Impressions: Service Date/Time: Tuesday, June 13, 2017 20:29 - CONCLUSION: 1. Mild basilar atelectasis. No effusion or pneumothorax. Eliu Holland MD Differential Diagnosis Myalgias, versus muscle spasm, versus electrolyte derangements causing cramping , versus acute coronary syndrome Narrative Course During the course of the patients emergency department visit, the patients history, examination, and differential diagnosis were reviewed with the patient. The patient was placed on a clinical data abstractor with oximetry and frequent blood pressure monitoring. The patient had IV access obtained and blood work sent for analysis. The patient's electronic medical record was reviewed. The patient had an ECG done on arrival that shows a sinus rhythm heart rate of 60, no acute ST segment elevation. QRS duration is 102 ms, QTC 435 ms. The patient was initially provided nitroglycerin sublingual times one without any change in pain. Norflex was then administered 60 mg IM. The patients laboratory studies were reviewed and remarkable for a white count of 6.8, hemoglobin 11.3, platelets 199 with 14 monocytes. CMP is remarkable for a sodium of 133, BUN 31, creatinine 2.50, glucose 453, AST 14, cardiac enzymes within normal limits with a troponin I of 0.02, BNP 17, lipase 129. PT 11.5, PTT 29.6. Radiology studies were reviewed and remarkable for a chest x-ray that shows atelectasis at the bases, no other acute infiltrate or abnormality. No effusion or pneumothorax. The patient's symptoms are most consistent with muscle cramping with the patient has experienced previously. The patient reported improvement on Norflex. The patient is resting comfortably and feels better, is alert and in no distress. The patients results and examination findings were discussed with the patient. The repeat examination is unremarkable and benign. The history, exam, diagnostic testing, and current condition do not suggest any significant pathology to warrant further testing, continued ED treatment, admission, or surgical evaluation at this point. The vital signs have been stable. The patient does not have uncontrollable pain, intractable vomiting, or other significant symptoms. The patient's condition is stable and appropriate for discharge. The patient will pursue further outpatient evaluation with a primary care physician or other designated or consulting physician as indicated in the discharge instructions. The patient expressed understanding and was agreeable with this plan. Diagnosis Primary Impression: Muscle cramps Additional Impression: Chest wall pain Referrals: Primary Care Physician 3 days Patient Instructions: Chest Wall Pain (ED), General Instructions, Muscle Cramp (ED) Med/Other Pt SpecificInfo: No Change to Meds Disposition: 01 DISCHARGE HOME Condition: Stable Lorena Hutson MD Jun 13, 2017 20:17
[2017-06-13 20:44] LABS: AUTOMATED NEUTROPHIL # 4.4 TH/MM3 (1.8-7.7); BASOPHIL % 0.5 % (0.0-2.0); EOSINOPHIL # 0.2 TH/MM3 (0-0.4); EOSINOPHIL % 2.5 % (0.0-4.0); HEMATOCRIT 34.9 % (39.0-51.0); HEMO FLAGS DIFF FINAL; LYMPH % 17.9 % (9.0-44.0); LYMPHOCYTE # 1.2 TH/MM3 (1.0-4.8); MEAN CELL VOLUME 78.1 FL (80.0-100.0); MEAN CORPUSCULAR HEMOGLOBIN 25.3 PG (27.0-34.0); MEAN CORPUSCULAR HGB CONC 32.4 % (32.0-36.0); NEUT % 65.1 % (16.0-70.0); PLATELET COUNT 199 TH/MM3 (150-450); RED BLOOD COUNT 4.47 MIL/MM3 (4.50-5.90); RED CELL DISTRIBUTION WIDTH 17.5 % (11.6-17.2); WHITE BLOOD COUNT 6.8 TH/MM3 (4.0-11.0)
--- NOTE | 2017-06-13 20:55 | RADRPT ---
EXAM DATE/TIME: 06/13/2017 20:29 [facility] COMPARISON: CHEST SINGLE AP, May 21, 2017, 17:14. INDICATIONS : Chest pain. MEDICAL HISTORY : Cerebrovascular disease. Aneurysm, abdominal. Hypertension coronary artery disease, pancreatiti s SURGICAL HISTORY : Abdominal aortic aneurysm repair. stents ENCOUNTER: Initial ACUITY: 1 day PAIN SCORE: 7/10 LOCATION: Bilateral chest FINDINGS: A single view of the chest demonstrates the lungs to be symmetrically aerated without evidence of mas s, infiltrate or effusion. Mild basilar atelectasis. The cardiomediastinal contours are unremarkable. Osseous structures are intact. CONCLUSION: 1. Mild basilar atelectasis. No effusion or pneumothorax. Eliu Holland MD on June 13, 2017 at 20:52 Board Certified Radiologist. This report was verified electronically.
[2017-06-13 21:02] LABS: APTT (PATIENT) 29.6 SEC (24.3-30.1); PROTHROMBIN TIME - PATIENT 11.5 SEC (9.8-11.6)
[2017-06-13 21:13] LABS: ANION GAP 6 MEQ/L (5-15)
[2017-06-13 21:19] LABS: ALKALINE PHOSPHATASE 109 U/L (45-117); ALT (GPT) 19 U/L (12-78); AST (GOT) 14 U/L (15-37); BICARBONATE 29.3 MEQ/L (21.0-32.0); BLOOD UREA NITROGEN 31 MG/DL (7-18); CHLORIDE 98 MEQ/L (98-107); CREATINE KINASE 150 U/L (39-308); GLOMERULAR FILTRATION RATE 32 ML/MIN (>89); SODIUM (NA) 133 MEQ/L (136-145); TOTAL BILIRUBIN ADULT 0.3 MG/DL (0.2-1.0)
[2017-06-13 21:36] LABS: CKMB 1.6 NG/ML (0.5-3.6)
[2017-06-13] MEDS ORDERED: ORPHENADRINE INJ 60 MG/2 ML AMP IM ONE (21:45)
[2017-06-13] MEDS ORDERED: INSULIN HUMAN REGULAR 1,000 UNITS/10 ML VIAL SQ ONE (21:45)
[2017-06-13] MEDS ORDERED: SODIUM CHLORID 0.9% 500 ML INJ 500 ML IV ONE (21:45)
--- NOTE | 2017-06-14 05:03 | EKG ---
Date Performed: 06/13/2017 Time Performed: 20:01:03 PTAGE: 62 years EKG: Sinus rhythm NORMAL ECG No significant change from prior electrocardiogram. DOCTOR: Maximo Townsend Interpretating Date/Time 06/14/2017 05:03:19
== END 2017-06-13 23:04 | disposition home or self-care (01) ==
LOC: NEPC 19:27
DX: R25.2 Cramp and spasm (principal); R07.89 Other chest pain; G89.29 Other chronic pain; I25.10 Atherosclerotic heart disease of native coronary artery without angina pectoris; E11.22 Type 2 diabetes mellitus with diabetic chronic kidney disease; E78.00 Pure hypercholesterolemia, unspecified; I10 Essential (primary) hypertension; Z95.5 Presence of coronary angioplasty implant and graft; Z86.73 Personal history of transient ischemic attack (TIA), and cerebral infarction without residual deficits; Z86.718 Personal history of other venous thrombosis and embolism; Z79.4 Long term (current) use of insulin; Z86.79 Personal history of other diseases of the circulatory system; Z87.891 Personal history of nicotine dependence
CPT/HCPCS: 71010; 80053; 82550; 82552; 83690; 83735; 83880; 84484; 85025; 85610; 85730; 93005; 96372; 99285; J1815; J2360; J7040

== ENCOUNTER 2017-07-15 00:36 | Observation (INO) | payer OTHER, MEDICAID ==
[2017-07-15] VITALS (24 sets, daily range): BP systolic 111–177; BP diastolic 62–100; PULSE 60–84; RESP 17–18; TEMP 97.6–98.6; O2SAT 94–98
[~2017-07-15] VITALS: Ht 175.3 cm; Wt 117.8 kg
--- NOTE | 2017-07-15 01:13 | PD ---
HPI Chief Complaint: Chest Pain Time Seen by Provider: 01:04 Travel History International Travel<30 days: No Contact w/Intl Traveler<30days: No Traveled to known affect area: No History of Present Illness HPI The patient is a 62 year old male who presents to the [facility] emergency department with a history of cramping in his legs, chest, and back that record over the last 24 hours. He has a history of this and when it gets bad every one to two weeks he will go to his PCPs office and get and an IM injection of Norflex. The patient reports that he had not received an injection for the last 3 weeks as he got into a confrontation with one of the nurses at his doctor 's office. He is in the process of switching doctors. He has an appointment with his new physician scheduled for this next week. The patient denies having any shortness of breath. He denies having any recent fevers or cough or congestion. He denies having any abdominal pain, nausea, vomiting, or diarrhea. He reports that he has had a diminished appetite throughout the day today. He denies having any difficulty urinating, dysuria, urinary frequency, or urgency. He denies having any neurologic symptoms. [facility] Past Medical History Narrative Medical The patient's past medical history is significant for coronary artery disease status post stenting in the past, with most recent cardiac catheterization done in March 2017 which showed mild disease that medical management was recommended for. His community support specialist is . The patient has a history of abdominal aortic aneurysm status post repair, history of chronic low back pain, diabetes mellitus, hypertension, hyperlipidemia, history of DVT on chronic anticoagulation, history of chronic renal insufficiency, history of sleep apnea. Hx Anticoagulant Therapy: Yes (ELOQUIS) AAA: Yes (JUL 2011/ ) Anemia: Yes Arthritis: No Asthma: No Autoimmune Disease: No Blood Disorders: Yes (SICKLE CELL TRAIT) Anxiety: No Depression: No Heart Rhythm Problems: Yes Cancer: No Cardiac Catheterization: Yes (2016) Cardiovascular Problems: Yes High Cholesterol: Yes Chemotherapy: No Chest Pain: Yes Congestive Heart Failure: No COPD: No Cerebrovascular Accident: Yes Coronary Artery Disease: Yes Diabetes: Yes Patient Takes Glucophage: No Diminished Hearing: No Deep Vein Thrombosis: Yes (LT LEG) Endocrine: Yes GERD: No Glaucoma: No Genitourinary: No Headaches: No Hepatitis: No Hiatal Hernia: No Heparin Induced Thrombocytopen: No Hypertension: Yes Immune Disorder: No Implanted Vascular Access Dvce: Yes (RIGHT INSULIN PUMP removed) Kidney Stones: No Musculoskeletal: No Neurologic: No Psychiatric: No Reproductive: No Respiratory: Yes Immunizations Current: Yes Migraines: No Myocardial Infarction: No Pancreatitis: Yes Radiation Therapy: No Renal Failure: No Seizures: No Sickle Cell Disease: Yes (TRAIT) Sleep Apnea: Yes Thyroid Disease: Yes Ulcer: No Tetanus Vaccination: < 5 Years Influenza Vaccination: No PNEUMOCCOCAL Vaccine (Year): 3 Past Surgical History Narrative Surgical The patient's past surgical history is significant for cardiac catheterization with stent placement 2, femoral-popliteal bypass, abdominal aortic aneurysm repair, cholecystectomy. Abdominal Aneurysm Repair: Yes (2012) Abdominal Surgery: Yes AICD: No Appendectomy: No Arteriovenous Shunt: No Body Medical Devices: STENTS Cardiac Surgery: Yes (stentX5) Cholecystectomy: Yes Coronary Artery Bypass Graft: No Coronary Stent: Yes (2009 X 2, 2010 X2) Ear Surgery: No Endocrine Surgery: No Eye Surgery: No Genitourinary Surgery: No Gynecologic Surgery: No Insulin Pump: Yes (removed) Joint Replacement: Yes (LEFT HIP 1999) Neurologic Surgery: No Oral Surgery: No Pacemaker: No Thoracic Surgery: No Other Surgery: Yes (GB REMOVED) Social History Alcohol Use: No Tobacco Use: No (QUIT 2005) Substance Use: No Allergies-Medications (Allergen,Severity, Reaction): Coded Allergies: benazepril (Verified Allergy, Severe, ANGIOEDEMA, 07/15/17) captopril (Verified Allergy, Severe, ANGIOEDEMA, 07/15/17) enalaprilat (Verified Allergy, Severe, 07/15/17) ANGIOEDEMA fosinopril (Verified Allergy, Severe, ANGIOEDEMA, 07/15/17) lisinopril (Verified Allergy, Severe, ANGIOEDEMA, 07/15/17) quinapril (Verified Allergy, Severe, ANGIOEDEMA, 07/15/17) hydromorphone (Verified Adverse Reaction, Intermediate, ITCHING, 07/15/17) Reported Meds & Prescriptions Reported Meds & Active Scripts Active Torsemide 10 Mg Tab 10 Mg PO BID Gabapentin 100 Mg Cap 200 Mg PO TID Nifedipine ER 24 HR (Nifedipine) 60 Mg Tab 60 Mg PO Q12HR Isosorbide Mononitrate ER (Isosorbide Mononitrate) 60 Mg Tab 90 Mg PO DAILY@07 Flexeril (Cyclobenzaprine HCl) 10 Mg Tab 10 Mg PO TID Hydralazine (Hydralazine HCl) 100 Mg Tab 100 Mg PO Q8H Lantus Inj (Insulin Glargine) 1,000 Unit/10 Ml Vial 75 Units SQ BID 30 Days Cardura (Doxazosin Mesylate) 2 Mg Tab 2 Mg PO DAILY Cozaar (Losartan Potassium) 50 Mg Tab 100 Mg PO DAILY Plavix (Clopidogrel Bisulfate) 75 Mg Tab 75 Mg PO DAILY Reported Crestor (Rosuvastatin Calcium) 40 Mg Tab 40 Mg PO DAILY Eliquis (Apixaban) 5 Mg Tab 5 Mg PO BID Zetia (Ezetimibe) 10 Mg Tab 10 Mg PO DAILY Neupro Patch 24 HR (Rotigotine Patch 24 HR) 3 Mg/24 Hr Patch 3 Mg T-DERMAL DAILY Klonopin (Clonazepam) 2 Mg Tab 2 Mg PO BID Ambien (Zolpidem Tartrate) 10 Mg Tab 10 Mg PO HS PRN Novolin R Inj (Insulin Human Regular) 1,000 Unit/10 Ml Vial 0 SQ TIDACHS Sliding Scale As Directed. Nitroglycerin SL (Nitroglycerin) 0.4 Mg Subl 0.4 Mg SL DIRECTED PRN ONE TABLET UNDER THE TONGUE NEEDED FOR CHEST PAIN, MAY REPEAT EVERY FIVE MINUTES FOR A TOTAL OF 3 DOSES OR CALL 911 IF NO RELIEF Coreg (Carvedilol) 25 Mg Tab 25 Mg PO BID Review of Systems Except as stated in HPI: all other systems reviewed are Neg General / Constitutional: No: Fever Eyes: No: Visual changes HENT: No: Headaches, Rhinorrhea, Congestion Cardiovascular: Positive: Chest Pain or Discomfort, No: Dyspnea on exertion Respiratory: No: Cough, Shortness of Breath Gastrointestinal: Positive: Loss of Appetite (today), No: Nausea, Vomiting, Diarrhea, Abdominal Pain Genitourinary: No: Urgency, Frequency, Dysuria Musculoskeletal: Positive: Myalgias, Cramping, Pain Skin: No Rash Neurologic: No: Weakness, Focal Abnormalities, Change in Mentation, Slurred Speech, Sensory Disturbance Psychiatric: No: Depression Endocrine: No: Polydipsia Hematologic/Lymphatic: No: Easy Bruising Physical Exam Narrative General: The patient is a well-developed well-nourished male in no acute distress Head and Neck exam: Head is normocephalic atraumatic. Eyes: EOMI, pupils are equal round and reactive to light. Nose: Midline septum with pink mucous membranes Mouth: Dentition unremarkable. Moist mucus membranes. Posterior oropharynx is not erythematous. No tonsillar hypertrophy. Uvula midline. Airway patent. Neck: No palpable lymphadenopathy. No nuchal rigidity. No thyromegaly. Cardiovascular: Regular rate and rhythm without murmurs, gallops, or rubs. No pulse deficit to the extremities on simultaneous auscultation and palpation of his radial artery. Lungs: Clear to auscultation bilaterally. No wheezes, rhonchi, or rales. Abdomen: Soft, without tenderness to palpation in all 4 quadrants of the abdomen. No guarding, rebound, or rigidity. Normal bowel sounds are audible. No tenderness on palpation of McBurney's point. Extremities: No clubbing, cyanosis, or edema. 2+ pulses in bilateral upper extremities. 1+ pulses in bilateral lower extremities. No calf tenderness on palpation. The patient's left ankle is slightly bigger than the right which he reports is related to his prior surgery and is not change compared to baseline. Back: No spinous process tenderness to palpation. No costovertebral angle tenderness to palpation. Neurologic Exam: Grossly nonfocal. Skin Exam: No rash noted. Intact skin that is warm and dry. Data Data Last Documented VS Vital Signs Date Time Temp Pulse Resp B/P (MAP) Pulse Ox O2 Delivery O2 Flow Rate FiO2 07/15/17 04:22 96 Room Air 07/15/17 04:21 60 138/90 (106) 07/15/17 00:38 98.6 17 Orders Orders Electrocardiogram (07/15/17 01:04) B-Type Natriuretic Peptide (07/15/17 01:04) Ckmb (Isoenzyme) Profile (07/15/17 01:04) Complete Blood Count With Diff (07/15/17 01:04) Comprehensive Metabolic Panel (07/15/17 01:04) Magnesium (Mg) (07/15/17 01:04) Prothrombin Time / Inr (Pt) (07/15/17 01:04) Act Partial Throm Time (Ptt) (07/15/17 01:04) Troponin I (07/15/17 01:04) Lipase (07/15/17 01:04) Chest, Single Ap (07/15/17 01:04) Ecg Monitoring (07/15/17 01:04) Bilateral Bp Monitoring (07/15/17 01:04) Iv Access Insert/Monitor (07/15/17 01:04) Oximetry (07/15/17 01:04) Oxygen Administration (07/15/17 01:04) Sodium Chloride 0.9% Flush (Ns Flush) (07/15/17 01:15) CKMB (07/15/17 01:00) CKMB% (07/15/17 01:00) Orphenadrine Inj (Norflex Inj) (07/15/17 02:00) Acetamin-Hydrocod 325-5 Mg ([place] 5-325 (07/15/17 02:00) Nitroglycerin 2% Oint (Nitroglycerin 2% (07/15/17 02:15) Sodium Chlorid 0.9% 500 Ml Inj (Ns 500 M (07/15/17 02:15) Electrocardiogram (07/15/17 03:06) Creatine Kinase (Cpk) (07/15/17 03:06) Ckmb (Isoenzyme) Profile (07/15/17 03:06) Troponin I (07/15/17 03:06) CKMB (07/15/17 04:00) CKMB% (07/15/17 04:00) Admit Order (Ed Use Only) (07/15/17 05:19) Morphine Inj (Morphine Inj) (07/15/17 05:30) Ondansetron Inj (Zofran Inj) (07/15/17 05:30) Labs Laboratory Tests Test 07/15/17 01:00 07/15/17 04:00 White Blood Count 6.6 TH/MM3 Red Blood Count 4.53 MIL/MM3 Hemoglobin 11.8 GM/DL Hematocrit 35.4 % Mean Corpuscular Volume 78.2 FL Mean Corpuscular Hemoglobin 26.2 PG Mean Corpuscular Hemoglobin Concent 33.5 % Red Cell Distribution Width 17.9 % Platelet Count 203 TH/MM3 Mean Platelet Volume 7.6 FL Neutrophils (%) (Auto) 60.5 % Lymphocytes (%) (Auto) 27.4 % Monocytes (%) (Auto) 9.3 % Eosinophils (%) (Auto) 2.0 % Basophils (%) (Auto) 0.8 % Neutrophils # (Auto) 4.0 TH/MM3 Lymphocytes # (Auto) 1.8 TH/MM3 Monocytes # (Auto) 0.6 TH/MM3 Eosinophils # (Auto) 0.1 TH/MM3 Basophils # (Auto) 0.1 TH/MM3 CBC Comment DIFF FINAL Differential Comment Prothrombin Time 11.0 SEC Prothromb Time International Ratio 1.1 RATIO Activated Partial Thromboplast Time 27.3 SEC Blood Urea Nitrogen 33 MG/DL Creatinine 3.11 MG/DL Random Glucose 348 MG/DL Total Protein 8.1 GM/DL Albumin 3.2 GM/DL Calcium Level 8.8 MG/DL Magnesium Level 1.9 MG/DL Alkaline Phosphatase 111 U/L Aspartate Amino Transf (AST/SGOT) 25 U/L Alanine Aminotransferase (ALT/SGPT) 34 U/L Total Bilirubin 0.3 MG/DL Sodium Level 136 MEQ/L Potassium Level 4.0 MEQ/L Chloride Level 101 MEQ/L Carbon Dioxide Level 26.4 MEQ/L Anion Gap 9 MEQ/L Estimat Glomerular Filtration Rate 25 ML/MIN Total Creatine Kinase 178 U/L 194 U/L Creatine Kinase MB 1.5 NG/ML 1.5 NG/ML Troponin I 0.08 NG/ML 0.08 NG/ML B-Type Natriuretic Peptide 26 PG/ML Lipase 136 U/L MDM Medical Decision Making Medical Screen Exam Complete: Yes Emergency Medical Condition: Yes Medical Record Reviewed: Yes Interpretation(s) Last Impressions Chest X-Ray 07/15/17 0104 Signed Impressions: Service Date/Time: Monday, July 15, 2017 01:09 - CONCLUSION: Mild left base atelectasis. Ti Albert MD Differential Diagnosis Muscle cramping related to electrolyte derangements, versus muscle strain, versus acute coronary syndrome Narrative Course During the course of the patients emergency department visit, the patients history, examination, and differential diagnosis were reviewed with the patient. The patient was placed on a air sampling and monitoring with oximetry and frequent blood pressure monitoring. The patient had IV access obtained and blood work sent for analysis. The patient had an ECG done on arrival that shows a sinus rhythm with occasional supraventricular premature complexes, no acute ST segment elevation or depression. QRS duration is 88 ms, QTC 448 ms. The patient was initially provided Norflex 60 mg IM, Lortab 5 mg by mouth 1. The patients laboratory studies were reviewed and remarkable for white count of 6.6, hemoglobin 11.8, platelets 203 with 9.3 monocytes, CMP is remarkable for BUN of 33, creatinine 3.11 which is slightly increased compared to previously at 31 and 2.50 respectively, glucose 348, CPK 178, MB 1.5, troponin I 0.08, BNP 26, albumin 3.2, lipase 136, PT 11, PTT 27.3. Review of the electronic medical record reveals that the patient has had chronic intermittent elevations of his troponins. Most recently he had an elevated troponin at 0.06 on May 22, however and her mentally prior to then he is also had elevated troponins a rounded near 0.08. The patient most recently had a cardiac catheterization done in March [address] Ponce which revealed mild coronary artery disease. He recommended continued optimization of the patient's other medical conditions including hypertension, sleep apnea, and diabetes. The patient's troponin could be elevated related to his slightly worsened renal disease, the patient was given normal saline a 500 mL bolus. The patient had an inch of nitroglycerin paste applied to the chest wall. The patient will have a repeat troponin I evaluated to assess for any further changes. Radiology studies were reviewed and remarkable for a chest x-ray that reveals mild left basilar atelectasis. The patient's EKG is repeated and continues to show nonspecific T-wave abnormalities, heart rate of 60, no acute ST segment elevation. Repeat troponin continues to be elevated at 0.08. A review of the patient's last cardiac catheterization does show 50-60% left circumflex lesion, right coronary artery with 2 stents in it with 20-30% in-stent restenosis of the distal stent. Given these findings and the patient's continued worsening renal function, the patient will be admitted for continued evaluation and treatment with an additional set of cardiac enzymes done, consultation with cardiology. The patients results were discussed with the patient, including the plan of care. I explained that further testing and/ or monitoring is indicated based on the patients history, examination, and/ or laboratory findings. Therefore, I recommended admission for additional evaluation. The patient expressed understanding and was agreeable with this plan. The patient was admitted to the hospital in stable condition and [facility] Physician Communication Physician Communication The patient's case including history, pertinent physical examination findings, and laboratory studies were discussed with Dr. Hale. It was agreed that [facility] Diagnosis Primary Impression: Chest pain Qualified Codes: R07.89 - Other chest pain Additional Impressions: Elevated troponin History of coronary artery disease Myalgia Admitting Information Admitting Physician Requests: Lorena Bell MD Jul 15, 2017 01:13
[2017-07-15] MEDS ORDERED: SODIUM CHLORIDE 0.9% FLUSH 10 ML FLUSH IVF PRN (01:15)
[2017-07-15 01:23] LABS: BASOPHIL # 0.1 TH/MM3 (0-0.2); BASOPHIL % 0.8 % (0.0-2.0); EOSINOPHIL # 0.1 TH/MM3 (0-0.4); HEMATOCRIT 35.4 % (39.0-51.0); HEMOGLOBIN 11.8 GM/DL (13.0-17.0); LYMPH % 27.4 % (9.0-44.0); LYMPHOCYTE # 1.8 TH/MM3 (1.0-4.8); MEAN CELL VOLUME 78.2 FL (80.0-100.0); MEAN CORPUSCULAR HEMOGLOBIN 26.2 PG (27.0-34.0); MEAN CORPUSCULAR HGB CONC 33.5 % (32.0-36.0); MEAN PLATELET VOLUME 7.6 FL (7.0-11.0); MONO % 9.3 % (0.0-8.0); MONOCYTE # 0.6 TH/MM3 (0-0.9); NEUT % 60.5 % (16.0-70.0); PLATELET COUNT 203 TH/MM3 (150-450); RED BLOOD COUNT 4.53 MIL/MM3 (4.50-5.90); RED CELL DISTRIBUTION WIDTH 17.9 % (11.6-17.2); WHITE BLOOD COUNT 6.6 TH/MM3 (4.0-11.0)
--- NOTE | 2017-07-15 01:29 | RADRPT ---
EXAM DATE/TIME: 07/15/2017 01:09 [facility] COMPARISON: CHEST SINGLE AP, June 13, 2017, 20:29. INDICATIONS : Chest pain. MEDICAL HISTORY : Cerebrovascular disease. Aneurysm, abdominal. Hypertension. CAD Pancreatitis SURGICAL HISTORY : Abdominal aortic aneurysm repair. Coronary artery stent. ENCOUNTER: Initial ACUITY: 1 day PAIN SCORE: 8/10 LOCATION: Bilateral chest FINDINGS: There is mild basilar atelectasis, mostly on the left. No pleural effusion. No pneumothorax. Heart size stable, normal. CONCLUSION: Mild left base atelectasis. Ti Albert MD on July 15, 2017 at 1:27 Board Certified Radiologist. This report was verified electronically.
[2017-07-15 01:35] LABS: INTERNATIONAL NORMALIZED RATIO 1.1 RATIO
[2017-07-15 01:41] LABS: ALBUMIN 3.2 GM/DL (3.4-5.0); ALKALINE PHOSPHATASE 111 U/L (45-117); ALT (GPT) 34 U/L (12-78); AST (GOT) 25 U/L (15-37); BICARBONATE 26.4 MEQ/L (21.0-32.0); BLOOD UREA NITROGEN 33 MG/DL (7-18); CALCIUM 8.8 MG/DL (8.5-10.1); CHLORIDE 101 MEQ/L (98-107); CREATININE 3.11 MG/DL (0.60-1.30); GLOMERULAR FILTRATION RATE 25 ML/MIN (>89); GLUCOSE,RANDOM 348 MG/DL (74-106); LIPASE 136 U/L (73-393); MAGNESIUM 1.9 MG/DL (1.5-2.5); SODIUM (NA) 136 MEQ/L (136-145); TOTAL BILIRUBIN ADULT 0.3 MG/DL (0.2-1.0); TOTAL PROTEIN 8.1 GM/DL (6.4-8.2); TROPONIN I 0.08 NG/ML (0.02-0.05)
[2017-07-15] MEDS ORDERED: ORPHENADRINE INJ 60 MG/2 ML AMP IM ONE (02:00)
[2017-07-15] MEDS ORDERED: ACETAMINOPHEN/HYDROcodone 325 MG/5 MG TAB PO ONE (02:00)
[2017-07-15] MEDS ORDERED: SODIUM CHLORID 0.9% 500 ML INJ 500 ML IV ONE (02:15)
[2017-07-15] MEDS ORDERED: NITROGLYCERIN 2% OINT 1 GM PACKET TOPICAL ONE (02:15)
[2017-07-15 04:43] LABS: TROPONIN I 0.08 NG/ML (0.02-0.05)
[2017-07-15] MEDS ORDERED: MORPHINE SULFATE 2 MG/ML INJ IV PUSH ONE (05:30)
[2017-07-15] MEDS ORDERED: MAGNESIUM HYDROXIDE SUSP 30 ML CUP PO PRN (05:30)
[2017-07-15] MEDS ORDERED: ACETAMINOPHEN/HYDROcodone 325 MG/5 MG TAB PO PRN (05:30)
[2017-07-15] MEDS ORDERED: BISACODYL 10 MG SUPP RECTAL PRN (05:30)
[2017-07-15] MEDS ORDERED: SODIUM CHLORIDE 0.9% FLUSH 10 ML FLUSH IV FLUSH PRN (05:30)
[2017-07-15] MEDS ORDERED: ONDANSETRON HCL 4 MG/2 ML VIAL IVP PRN (05:30)
[2017-07-15] MEDS ORDERED: ONDANSETRON HCL 4 MG/2 ML VIAL IV PUSH ONE (05:30)
[2017-07-15] MEDS ORDERED: DEXTROSE 50% IN WATER 50 ML VIAL(D50) IV PUSH PRN (05:30)
[2017-07-15] MEDS ORDERED: ACETAMINOPHEN 325 MG TAB PO PRN (05:30)
[2017-07-15] MEDS ORDERED: LACTULOSE SYRUP 20 GM/30 ML CUP PO PRN (05:30)
[2017-07-15] MEDS ORDERED: GLUCAGON 1 MG/ML VIAL OTHER PRN (05:30)
[2017-07-15] MEDS ORDERED: SENNOSIDES 8.6 MG TAB PO PRN (05:30)
[2017-07-15] MEDS: hydrALAZINE HCL 100 MG TAB PO SCH ×3 (06:00→22:29)
[2017-07-15] MEDS: ISOSORBIDE MONONITRATE 30 MG TAB PO SCH (06:37)
[2017-07-15] MEDS: INSULIN ASPART SUPPLEMENTAL SCALE SQ SCH ×4 (08:48→23:06)
[2017-07-15] MEDS: CARVEDILOL 12.5 MG TAB PO SCH ×2 (08:49→20:15)
[2017-07-15] MEDS: ATORVASTATIN 80 MG TAB PO SCH (08:49)
[2017-07-15] MEDS: NIFEdipine 60 MG SUSTAINED RELEASE TAB PO SCH ×2 (08:50→20:16)
[2017-07-15] MEDS: EZETIMIBE 10 MG TAB PO SCH (08:50)
[2017-07-15] MEDS: INSULIN DETEMIR 100 UNITS/ML VIAL SQ SCH ×2 (08:50→20:36)
[2017-07-15] MEDS: DOCUSATE SODIUM 50 MG/SENNA 8.6 MG TAB PO SCH ×2 (08:51→20:15)
[2017-07-15] MEDS: APIXABAN 5 MG TABLET PO SCH ×2 (08:51→20:15)
[2017-07-15] MEDS: SODIUM CHLORIDE 0.9% FLUSH 10 ML FLUSH IV FLUSH SCH ×2 (08:52→20:15)
[2017-07-15] MEDS: NITROGLYCERIN 2% OINT 1 GM PACKET TOPICAL PRN ×2 (08:53→20:17)
[2017-07-15] MEDS: MORPHINE SULFATE 2 MG/ML INJ IV PUSH PRN ×5 (08:54→22:29)
[2017-07-15] MEDS: DOXAZOSIN MESYLATE 2 MG TAB PO SCH (09:48)
--- NOTE | 2017-07-15 14:58 | MB ---
cc: YONY TAYLOR M.D. DATE OF CONSULTATION: 07/15/2017. REASON FOR CONSULTATION: Evaluation of chest pain. HISTORY OF PRESENT ILLNESS: Elvin William is a 62-year-old man I have been asked to evaluate for chest pain and a troponin level of 0.08. The patient has known coronary artery disease. He had a stent of the mid right coronary artery in 2009 and another stent in the mid right coronary artery July 28, 2016 that was a 3.0 x 15 mm drug-eluting stent. His last catheterization was March 31, [address] Soriano. His left main coronary artery was normal. His left anterior descending had mild irregularities. His circumflex artery had a 50% to 60% mid stenosis but was only 1.5 mm in size. The obtuse marginal branch had 20% to 30% disease. The right coronary artery had patent mid and distal stents about 20% to 30% in-stent stenosis of the more distal stent. He has been treated medically. He is on a good program of nitrates, beta belén and calcium belén. He says he gets these symptoms, which he thinks are muscle cramps. He will get them in his chest and will move around and he can change the discomfort by how he moves. He had this at 11:00 p.m. last night while sitting and said it eventually went down his legs like his legs were going to lock up. He also describes it like a squeezing feeling lasting ten minutes and also like a [place] Horse. The description is somewhat atypical. His troponin when checked was 0.08 so he was admitted. Creatinine is up to 3.11, which is higher than it has ever been documented before. The patient feels fine this morning. His anti-anginal regimen includes: 1. Carvedilol 25 milligrams p.o. twice a day. 2. Nifedipine 60 milligrams twice a day. 3. Imdur 90 milligrams q. A.m. 4. He is also on hydralazine 100 milligrams q. 8 hours. 5. Apixaban 5 milligrams p.o. twice a day. 6. Nitro paste a half inch. He has not been any aspirin that I can tell. PAST MEDICAL HISTORY: His past medical history includes: 1. Coronary artery disease. 2. Venous insufficiency. 3. 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 4. Previous DVT continued on Eliquis. 5. Hyperlipidemia. 6. Hypertension. 7. Sickle-cell trait. 8. Sleep apnea. 9. Obesity. PAST SURGICAL HISTORY: 1. Left femoropopliteal bypass in 2007. 2. Cholecystectomy in the year 1999. 3. Left hip replacement in 2005. SOCIAL HISTORY: Quit smoking in 2004. ALLERGIES: 1. DAWIT INHIBITORS CAUSING ANGIOEDEMA. 2. CLONIDINE. 3. DILAUDID. REVIEW OF SYSTEMS: His review of systems is otherwise negative. PHYSICAL EXAMINATION: GENERAL: The physical exam reveals a severely obese pleasant -Spanish male in no acute distress. VITAL SIGNS: Blood pressure was very high when he came in at 177/100. Last on recheck was 151/80. HEAD, EYES, EARS, NOSE, THROAT: Unremarkable. NECK: The neck reveals no jugular venous distention. No bruits. CHEST: Clear to auscultation. CARDIAC: PMI not palpable. Normal first and second heart sounds. Regular rate and rhythm with a 1/6 systolic ejection murmur. ABDOMEN: Obese, soft, nontender. EXTREMITIES: Intact but diminished right pedal pulses. Left pedal pulses are such that I could not feel the dorsalis pedis pulse at all and the posterior tibial was only trace. EKGS: EKG shows sinus rhythm with some minor nonspecific S-T-T wave change. LABORATORY DATA: Troponins have been 0.08 when checked twice. Creatinine is up to 3.11. Hematocrit is 35.4. MCV is 78.2, but he has a history of sickle-cell trait. IMPRESSION: A 62-year-old male with known coronary artery disease who now has chest pain which is somewhat difficult to evaluate. He certainly has some atypical features. This does not sound classic for ischemia. The troponin of 0.08 is very indeterminate in the setting of a creatinine of 3.11 certainly does not prove any infarction. Clinically he looks stable now. He is already on a very aggressive antianginal regimen. He was just cathed only three months ago and there was nothing recommended for revascularization. RECOMMENDATIONS: 1. I recommend repeating a troponin tomorrow. 2. If he otherwise looks stable, he probably can be discharged and followed up as an outpatient. 3. The elevated creatinine is a concern and he will definitely need nephrology follow up. MD RIVKA Basilio/ROB /12:19 PM /2:29 PM
--- NOTE | 2017-07-15 16:08 | HHI.HP ---
[facility] Jhonathan Harris MD Admission Diagnosis Chest pain, elevated troponin, history of CAD Diagnoses: Chief Complaint: Chest Pain Travel History International Travel<30 Days: No Contact w/Intl Traveler <30 Da: No Traveled to Known Affected Are: No History of Present Illness 62M with h/o CAD and DM2 presented to the ER overnight with persistent recurrent chest pain located primarily on left sternum, but with satellite radiation to lower back, legs, and abdomen. He denies any nausea or vomiting, denies dyspnea, denies anxiety. He also denies any heavy lifting or abnormal activity or abnormal meals. He received a cardiac stent placement last March. He does not seem well aware of his chronic renal condition. Review of Systems Constitutional: DENIES: Diaphoretic episodes, Fatigue, Fever, Weight gain, Weight loss, Chills Eyes: DENIES: Blurred vision, Diplopia Ears, nose, mouth, throat: DENIES: Vertigo, Ear Pain Respiratory: DENIES: Apneas, Cough, Snoring, Wheezing Cardiovascular: COMPLAINS OF: Chest pain, DENIES: Palpitations, Syncope, Dyspnea on Exertion, Lower Extremity Edema Gastrointestinal: DENIES: Abdominal pain, Constipation, Diarrhea, Nausea, Vomiting Musculoskeletal: COMPLAINS OF: Joint pain, Back pain, DENIES: Stiffness, Joint Swelling Neurologic: DENIES: Abnormal gait, Headache Psychiatric: DENIES: Anxiety, Confusion, Mood changes Past Family Social History Past Medical History DM2, CAD, Angioedema, anemia, sickle cell trait, DVT, sleep apnea, hypothyroidism Past Surgical History stents: 2009x2, 2011x2, 2017x1, left hip replacement Allergies: Coded Allergies: benazepril (Verified Allergy, Severe, ANGIOEDEMA, 07/15/17) captopril (Verified Allergy, Severe, ANGIOEDEMA, 07/15/17) enalaprilat (Verified Allergy, Severe, 07/15/17) ANGIOEDEMA fosinopril (Verified Allergy, Severe, ANGIOEDEMA, 07/15/17) lisinopril (Verified Allergy, Severe, ANGIOEDEMA, 07/15/17) quinapril (Verified Allergy, Severe, ANGIOEDEMA, 07/15/17) hydromorphone (Verified Adverse Reaction, Intermediate, ITCHING, 07/15/17) Family History CAD, HTN Social History No alcohol use, stopped smoking in 2005 Physical Exam Vital Signs Vital Signs Date Time Temp Pulse Resp B/P (MAP) Pulse Ox O2 Delivery O2 Flow Rate FiO2 07/15/17 15:15 98.4 62 18 154/71 (98) 94 07/15/17 13:00 17 07/15/17 11:15 98.3 66 18 111/62 (78) 94 07/15/17 08:09 98.1 69 18 151/80 (103) 95 154/83 (106) 07/15/17 07:00 74 07/15/17 06:29 97.6 66 18 177/100 (125) 94 07/15/17 06:28 07/15/17 04:22 96 Room Air 07/15/17 04:21 60 138/90 (106) 07/15/17 00:38 98.6 68 17 140/72 (94) 98 Room Air Physical Exam GENERAL: This is a well-nourished, well-developed patient, in no apparent distress. SKIN: No rashes, ecchymoses or lesions. Cool and dry. HEAD: Atraumatic. Normocephalic. No temporal or scalp tenderness. EYES: Pupils equal round and reactive. Extraocular motions intact. No scleral icterus. No injection or drainage. ENT: Nose without bleeding, purulent drainage or septal hematoma. Throat without erythema, tonsillar hypertrophy or exudate. Uvula midline. Airway patent. NECK: Trachea midline. No JVD or lymphadenopathy. Supple, nontender, no meningeal signs. CARDIOVASCULAR: Regular rate and rhythm without murmurs, gallops, or rubs. RESPIRATORY: Clear to auscultation. Breath sounds equal bilaterally. No wheezes , rales, or rhonchi. GASTROINTESTINAL: Abdomen soft, non-tender, nondistended. No hepato-splenomegaly , or palpable masses. No guarding. MUSCULOSKELETAL: +1 edema of Left lower leg (chronic). No joint tenderness, effusion noted. No calf tenderness. Negative Homans sign bilaterally. NEUROLOGICAL: Awake and alert. Cranial nerves II through XII intact. Motor and sensory grossly within normal limits. Five out of 5 muscle strength in all muscle groups. Normal speech. Laboratory Laboratory Tests Test 07/15/17 01:00 07/15/17 04:00 07/15/17 11:00 White Blood Count 6.6 Red Blood Count 4.53 Hemoglobin 11.8 Hematocrit 35.4 Mean Corpuscular Volume 78.2 Mean Corpuscular Hemoglobin 26.2 Mean Corpuscular Hemoglobin Concent 33.5 Red Cell Distribution Width 17.9 Platelet Count 203 Mean Platelet Volume 7.6 Neutrophils (%) (Auto) 60.5 Lymphocytes (%) (Auto) 27.4 Monocytes (%) (Auto) 9.3 Eosinophils (%) (Auto) 2.0 Basophils (%) (Auto) 0.8 Neutrophils # (Auto) 4.0 Lymphocytes # (Auto) 1.8 Monocytes # (Auto) 0.6 Eosinophils # (Auto) 0.1 Basophils # (Auto) 0.1 CBC Comment DIFF FINAL Differential Comment Prothrombin Time 11.0 Prothromb Time International Ratio 1.1 Activated Partial Thromboplast Time 27.3 Blood Urea Nitrogen 33 Creatinine 3.11 Random Glucose 348 Total Protein 8.1 Albumin 3.2 Calcium Level 8.8 Magnesium Level 1.9 Alkaline Phosphatase 111 Aspartate Amino Transf (AST/SGOT) 25 Alanine Aminotransferase (ALT/SGPT) 34 Total Bilirubin 0.3 Sodium Level 136 Potassium Level 4.0 Chloride Level 101 Carbon Dioxide Level 26.4 Anion Gap 9 Estimat Glomerular Filtration Rate 25 Total Creatine Kinase 178 194 Creatine Kinase MB 1.5 1.5 Troponin I 0.08 0.08 0.07 B-Type Natriuretic Peptide 26 Lipase 136 Result Diagram: 07/15/179907/15/1799 Imaging Last Impressions Chest X-Ray 07/15/17103 Signed Impressions: Service Date/Time: Saturday, July 15, 2017 01:09 - CONCLUSION: Mild left base atelectasis. MD Janusz Roai VTE Risk Assessment Caprini VTE Risk Assessment: Mod/High Risk (score >= 2) Caprini Risk Assessment Model Point Value = 1 Point Value = 2 Point Value = 3 Point Value = 5 Age 41-60 Minor surgery BMI > 25 kg/m2 Swollen legs Varicose veins or History of unexplained or recurrent spontaneous Oral contraceptives or hormone replacement Sepsis (< 1 month) Serious lung disease, including pneumonia (< 1 month) Abnormal pulmonary function Acute myocardial infarction Congestive heart failure (< 1 month) History of inflammatory bowel disease Medical patient at bed rest Age 61-74 Arthroscopic surgery Major open surgery (> 45 min) Laparoscopic surgery (> 45 min) Malignancy Confined to bed (> 72 hours) Immobilizing plaster cast Central venous access Age >= 75 History of VTE Family history of VTE Factor V Leiden Prothrombin [id number] Lupus anticoagulant Anticardiolipin antibodies Elevated serum homocysteine Heparin-induced thrombocytopenia Other congenital or acquired thrombophilia Stroke (< 1 month) Elective arthroplasty Hip, pelvis, or leg fracture Acute spinal cord injury (< 1 month) Prophylaxis Regimen Total Risk Factor Score Risk Level Prophylaxis Regimen 0-1 Low Early ambulation 2 Moderate Order ONE of the following: *Sequential Compression Device (SCD) *Heparin 5000 units SQ BID 3-4 Higher Order ONE of the following medications: *Heparin 5000 units SQ TID *Enoxaparin/Lovenox 40 mg SQ daily (WT < 150 kg, CrCl > 30 mL/min) *Enoxaparin/Lovenox 30 mg SQ daily (WT < 150 kg, CrCl > 10-29 mL/min) *Enoxaparin/Lovenox 30 mg SQ BID (WT < 150 kg, CrCl > 30 mL/min) AND/OR *Sequential Compression Device (SCD) 5 or more Highest Order ONE of the following medications: *Heparin 5000 units SQ TID (Preferred with Epidurals) *Enoxaparin/Lovenox 40 mg SQ daily (WT < 150 kg, CrCl > 30 mL/min) *Enoxaparin/Lovenox 30 mg SQ daily (WT < 150 kg, CrCl > 10-29 mL/min) *Enoxaparin/Lovenox 30 mg SQ BID (WT < 150 kg, CrCl > 30 mL/min) AND *Sequential Compression Device (SCD) Assessment and Plan Problem List: (1) Chest pain ICD Code: R07.9 - Chest pain Status: Acute (2) Elevated troponin ICD Code: R79.89 - Other specified abnormal findings of blood chemistry Status: Acute (3) Acute renal failure ICD Code: N17.9 - Acute kidney failure, unspecified (4) DM (diabetes mellitus) ICD Code: E11.9 - Diabetes mellitus Status: Chronic (5) Sickle cell trait ICD Code: D57.3 - Sickle cell trait Status: Chronic Assessment and Plan Atypical Chest Pain Will recheck troponin in the a.m. per cardiology recommendation On exam he has sternal tenderness which may indicate costochondritis Will give dose of steroids and reevaluate sternum Troponin unreliable due to elevated Creatinine Low risk for NV given mostly clear heart cath last March with Dr. Soriano, reviewed by Dr. Hutson Acute Renal Failure Elevated from his baseline Repeat labs Type 2 Diabetes Poor control on diabetic diet Accuchecks routinely SSI coverage increased from low to high scale Sickle Cell Trait [place] considering given multiple areas of non-specific pain including chest pain Oxygenating well, keep hydrated, control blood sugars DVT Prophylaxis [facility] first thing in the morning if troponin is stable or decreased Physician Certification 2 Midnight Certification Type: Admission for Inpatient Services Order for Inpatient Services The services are ordered in accordance with Medicare regulations or non- Medicare payer requirements, as applicable. In the case of services not specified as inpatient-only, they are appropriately provided as inpatient services in accordance with the 2-midnight benchmark. Estimated LOS (days): 1 days is the estimated time the patient will need to remain in the hospital, assuming treatment plan goals are met and no additional complications. Post-Hospital Plan: Home Problem Qualifiers (1) Chest pain: Qualified Codes: R07.89 - Other chest pain Aldo Benjamin MD Jul 15, 2017 16:08
[2017-07-15 18:07] LABS: BICARBONATE 28.9 MEQ/L (21.0-32.0); CALCIUM 8.3 MG/DL (8.5-10.1); CREATININE 2.86 MG/DL (0.60-1.30)
[2017-07-15 18:12] LABS: TROPONIN I 0.07 NG/ML (0.02-0.05)
[2017-07-15] MEDS ORDERED: ZOLPIDEM TARTRATE 10 MG TAB PO ONE (23:00)
[2017-07-16] VITALS (12 sets, daily range): BP systolic 145–150; BP diastolic 78; PULSE 61–72; RESP 18; TEMP 98.4–98.6; O2SAT 95–96
[2017-07-16] MEDS: MORPHINE SULFATE 2 MG/ML INJ IV PUSH PRN ×2 (01:41→06:24)
[2017-07-16] MEDS: hydrALAZINE HCL 100 MG TAB PO SCH (06:24)
[2017-07-16] MEDS: ISOSORBIDE MONONITRATE 30 MG TAB PO SCH (06:24)
[2017-07-16 06:52] LABS: AUTOMATED NEUTROPHIL # 2.9 TH/MM3 (1.8-7.7); BASOPHIL % 0.6 % (0.0-2.0); EOSINOPHIL # 0.2 TH/MM3 (0-0.4); EOSINOPHIL % 4.1 % (0.0-4.0); HEMATOCRIT 32.2 % (39.0-51.0); LYMPH % 27.7 % (9.0-44.0); LYMPHOCYTE # 1.4 TH/MM3 (1.0-4.8); MEAN CELL VOLUME 77.2 FL (80.0-100.0); MEAN CORPUSCULAR HEMOGLOBIN 26.5 PG (27.0-34.0); MEAN CORPUSCULAR HGB CONC 34.3 % (32.0-36.0); MONO % 11.3 % (0.0-8.0); MONOCYTE # 0.6 TH/MM3 (0-0.9); NEUT % 56.3 % (16.0-70.0); PLATELET COUNT 158 TH/MM3 (150-450); RED BLOOD COUNT 4.17 MIL/MM3 (4.50-5.90); WHITE BLOOD COUNT 5.1 TH/MM3 (4.0-11.0)
[2017-07-16 07:09] LABS: ALBUMIN 2.8 GM/DL (3.4-5.0); ALKALINE PHOSPHATASE 109 U/L (45-117); ALT (GPT) 25 U/L (12-78); AST (GOT) 13 U/L (15-37); BICARBONATE 27.7 MEQ/L (21.0-32.0); BLOOD UREA NITROGEN 41 MG/DL (7-18); CALCIUM 8.5 MG/DL (8.5-10.1); CHLORIDE 104 MEQ/L (98-107); CREATININE 2.19 MG/DL (0.60-1.30); GLOMERULAR FILTRATION RATE 37 ML/MIN (>89); GLUCOSE,RANDOM 151 MG/DL (74-106); SODIUM (NA) 139 MEQ/L (136-145); TOTAL BILIRUBIN ADULT 0.3 MG/DL (0.2-1.0); TOTAL PROTEIN 7.2 GM/DL (6.4-8.2); TROPONIN I 0.07 NG/ML (0.02-0.05)
[2017-07-16] MEDS: INSULIN ASPART SUPPLEMENTAL SCALE SQ SCH (08:00)
--- NOTE | 2017-07-16 08:36 | HHI.DS ---
Discharge Summary Admission Date Jul 15, 2017 at 05:21 Discharge Date: Jul 16, 2017 Admitting Diagnosis Chest pain, elevated troponin, history of CAD (1) Chest pain ICD Code: R07.9 - Chest pain Status: Acute (2) Elevated troponin ICD Code: R79.89 - Other specified abnormal findings of blood chemistry Status: Acute (3) Acute renal failure ICD Code: N17.9 - Acute kidney failure, unspecified (4) DM (diabetes mellitus) ICD Code: E11.9 - Diabetes mellitus Status: Chronic (5) Sickle cell trait ICD Code: D57.3 - Sickle cell trait Status: Chronic Procedures none Brief History - From Admission 62M with h/o CAD and DM2 presented to the ER overnight with persistent recurrent chest pain located primarily on left sternum, but with satellite radiation to lower back, legs, and abdomen. He denies any nausea or vomiting, denies dyspnea, denies anxiety. He also denies any heavy lifting or abnormal activity or abnormal meals. He received a cardiac stent placement last March. He does not seem well aware of his chronic renal condition. CBC/BMP: 07/16/17 0557 07/16/17 0557 Significant Findings Laboratory Tests Test 07/15/17 01:00 07/15/17 04:00 07/15/17 11:00 07/15/17 17:18 Hemoglobin 11.8 GM/DL (13.0-17.0) Hematocrit 35.4 % (39.0-51.0) Mean Corpuscular Volume 78.2 FL (80.0-100.0) Mean Corpuscular Hemoglobin 26.2 PG (27.0-34.0) Red Cell Distribution Width 17.9 % (11.6-17.2) Monocytes (%) (Auto) 9.3 % (0.0-8.0) Blood Urea Nitrogen 33 MG/DL (7-18) 40 MG/DL (7-18) Creatinine 3.11 MG/DL (0.60-1.30) 2.86 MG/DL (0.60-1.30) Random Glucose 348 MG/DL (74-106) 479 MG/DL (74-106) Albumin 3.2 GM/DL (3.4-5.0) Estimat Glomerular Filtration Rate 25 ML/MIN (>89) 27 ML/MIN (>89) Troponin I 0.08 NG/ML (0.02-0.05) 0.08 NG/ML (0.02-0.05) 0.07 NG/ML (0.02-0.05) 0.07 NG/ML (0.02-0.05) Calcium Level 8.3 MG/DL (8.5-10.1) Sodium Level 133 MEQ/L (136-145) Chloride Level 96 MEQ/L (98-107) Test 07/16/17 05:57 Red Blood Count 4.17 MIL/MM3 (4.50-5.90) Hemoglobin 11.0 GM/DL (13.0-17.0) Hematocrit 32.2 % (39.0-51.0) Mean Corpuscular Volume 77.2 FL (80.0-100.0) Mean Corpuscular Hemoglobin 26.5 PG (27.0-34.0) Red Cell Distribution Width 18.0 % (11.6-17.2) Monocytes (%) (Auto) 11.3 % (0.0-8.0) Eosinophils (%) (Auto) 4.1 % (0.0-4.0) Blood Urea Nitrogen 41 MG/DL (7-18) Creatinine 2.19 MG/DL (0.60-1.30) Random Glucose 151 MG/DL (74-106) Albumin 2.8 GM/DL (3.4-5.0) Aspartate Amino Transf (AST/SGOT) 13 U/L (15-37) Estimat Glomerular Filtration Rate 37 ML/MIN (>89) Troponin I 0.07 NG/ML (0.02-0.05) Hospital Course Pt presented to the ER two days ago with atypical chest pain radiating to lower back and thighs. He had an elevated troponin, but on review by cardiology it was felt a cardiac cath last march with stent repair of a single defect pointed to a low likelihood for MN. Additionally he has poor renal function which can elevate troponin as well. Patient wished to go home last night, but was willing to wait one more night so that we could control his elevated blood sugar and check troponin one more time. This morning he has no complaints and is stable for discharge home. Pt Condition on Discharge: Good Discharge Disposition: Discharge Home Discharge Time: <= 30 minutes Discharge Instructions DIET: Follow Instructions for: Diabetic Diet Activities you can perform: Regular-No Restrictions Additional Information Follow up with Primary Care this week to address kidney function and request referral to glass or mirror inspector. Aldo Benjamin MD Jul 16, 2017 08:36
[2017-07-16] MEDS: DOXAZOSIN MESYLATE 2 MG TAB PO SCH (08:38)
[2017-07-16] MEDS: APIXABAN 5 MG TABLET PO SCH (08:38)
[2017-07-16] MEDS: CARVEDILOL 12.5 MG TAB PO SCH (08:38)
[2017-07-16] MEDS: ATORVASTATIN 80 MG TAB PO SCH (08:38)
[2017-07-16] MEDS: NIFEdipine 60 MG SUSTAINED RELEASE TAB PO SCH (08:38)
[2017-07-16] MEDS: EZETIMIBE 10 MG TAB PO SCH (08:38)
[2017-07-16] MEDS: DOCUSATE SODIUM 50 MG/SENNA 8.6 MG TAB PO SCH (08:38)
[2017-07-16] MEDS: INSULIN DETEMIR 100 UNITS/ML VIAL SQ SCH (08:39)
[2017-07-16] MEDS: SODIUM CHLORIDE 0.9% FLUSH 10 ML FLUSH IV FLUSH SCH (08:41)
[2017-07-16] MEDS ORDERED: ATORVASTATIN 10 MG TAB PO SCH (09:00)
--- NOTE | 2017-07-16 10:00 | PD.CARD.PN ---
Subjective Subjective Remarks No events overnight No complaints, plan on discharge today Objective Medications Current Medications Sodium Chloride (NS Flush) 2 ml UNSCH PRN IVF FLUSH AFTER USING IV ACCESS Last administered on 07/15/17 02:15; Start 07/15/17 at 01:15; Stop 07/15/17 at 05 :49; Status DC Orphenadrine Citrate (Norflex Inj) 60 mg ONCE ONCE IM Last administered on 02:14; Start 07/15/17 at 02:00; Stop 07/15/17 at 02:01; Status DC Acetaminophen/ Hydrocodone Bitart ([place] 5-325 Mg) 1 tab ONCE ONCE PO Last administered on 07/15/17 02:14; Start 07/15/17 at 02:00; Stop 07/15/17 at 02 :01; Status DC Nitroglycerin (Nitroglycerin 2% Oint) 1 inch ONCE ONCE TOPICAL Last administered on 07/15/17 03:03; Start 07/15/17 at 02:15; Stop 07/15/17 at 02 :16; Status DC Sodium Chloride 500 ml @ 500 mls/hr BOLUS ONCE IV Last administered on 02:15; Start 07/15/17 at 02:15; Stop 07/15/17 at 03:14; Status DC Morphine Sulfate (Morphine Inj) 4 mg ONCE ONCE IV PUSH Last administered on 06:05; Start 07/15/17 at 05:30; Stop 07/15/17 at 05:31; Status DC Ondansetron HCl (Zofran Inj) 4 mg ONCE ONCE IV PUSH Last administered on 07/15 06:05; Start 07/15/17 at 05:30; Stop 07/15/17 at 05:31; Status DC Dextrose (D50w (Vial) Inj) 50 ml UNSCH PRN IV PUSH HYPOGLYCEMIA-SEE COMMENTS; Start 07/15/17 at 05:30; Stop 07/16/17 at 09:38; Status DC Glucagon (Glucagon Inj) 1 mg UNSCH PRN OTHER HYPOGLYCEMIA-SEE COMMENTS; Start 07/15/17 at 05:30; Stop 07/16/17 at 09:38; Status DC Insulin Aspart (NovoLOG SUPPLEMENTAL SCALE) 1 ACHS SLIDING SCALE SQ Last administered on 12/30/17at 12:42; Start 07/15/17 at 08:00; Stop 07/15/17 at 15 :04; Status DC Sodium Chloride (NS Flush) 2 ml UNSCH PRN IV FLUSH FLUSH AFTER USING IV ACCESS ; Start 07/15/17 at 05:30; Stop 07/16/17 at 09:38; Status DC Sodium Chloride (NS Flush) 2 ml BID IV FLUSH Last administered on 07/15/17 20 :15; Start 07/15/17 at 09:00; Stop 07/16/17 at 09:38; Status DC Ondansetron HCl (Zofran Inj) 4 mg Q6H PRN IVP NAUSEA OR VOMITING; Start at 05:30; Stop 07/16/17 at 09:38; Status DC Acetaminophen (Tylenol) 650 mg Q6H PRN PO FEVER/PAIN SCALE 1 TO 2; Start 07/15 at 05:30; Stop 07/16/17 at 09:38; Status DC Acetaminophen/ Hydrocodone Bitart ([place] 5-325 Mg) 1 tab Q4H PRN PO PAIN SCALE 3 TO 5 Last administered on 07/15/17 23:05; Start 07/15/17 at 05:30; Stop 07/16/17 at 09:38; Status DC Morphine Sulfate (Morphine Inj) 2 mg Q3H PRN IV PUSH Pain 6-10 Last administered on 07/16/17 06:24; Start 07/15/17 at 05:30; Stop 07/16/17 at 09 :38; Status DC Senna/Docusate Sodium ([place]obe[place]-Colace) 1 tab BID PO Last administered on 08:38; Start 07/15/17 at 09:00; Stop 07/16/17 at 09:38; Status DC Magnesium Hydroxide (Milk Of Magnesia Liq) 30 ml Q12H PRN PO Mild constipation Last administered on 07/15/17 08:49; Start 07/15/17 at 05:30; Stop 07/16/17 at 09:38; Status DC Sennosides (Senokot) 17.2 mg Q12H PRN PO Moderate constipation; Start at 05:30; Stop 07/16/17 at 09:38; Status DC Bisacodyl (Dulcolax Supp) 10 mg DAILY PRN RECTAL SEVERE CONSITIPATION; Start 07/15/17 at 05:30; Stop 07/16/17 at 09:38; Status DC Lactulose (Lactulose Liq) 30 ml DAILY PRN PO SEVERE CONSITIPATION; Start 07/15 at 05:30; Stop 07/16/17 at 09:38; Status DC Apixaban (Eliquis) 5 mg BID PO Last administered on 07/16/17 08:38; Start at 09:00; Stop 07/16/17 at 09:38; Status DC Carvedilol (Coreg) 25 mg BID PO Last administered on 07/16/17 08:38; Start 07/15/17 at 09:00; Stop 07/16/17 at 09:38; Status DC Doxazosin Mesylate (Cardura) 2 mg DAILY PO Last administered on 07/16/17 08: 38; Start 07/15/17 at 09:00; Stop 07/16/17 at 09:38; Status DC EZETIMIBE (Zetia) 10 mg DAILY PO Last administered on 07/16/17 08:38; Start 07/15/17 at 09:00; Stop 07/16/17 at 09:38; Status DC Hydralazine HCl (Apresoline) 100 mg Q8H PO Last administered on 07/16/17 06: 24; Start 07/15/17 at 06:00; Stop 07/16/17 at 09:38; Status DC Insulin Detemir (Levemir Inj) 75 units BID SQ Last administered on 07/16/17 08:39; Start 07/15/17 at 09:00; Stop 07/16/17 at 09:38; Status DC Isosorbide Mononitrate (Imdur) 90 mg DAILY@0700 PO Last administered on 06:24; Start 07/15/17 at 07:00; Stop 07/16/17 at 09:38; Status DC Nifedipine (Procardia Xl) 60 mg Q12HR PO Last administered on 07/16/17 08:38 ; Start 07/15/17 at 09:00; Stop 07/16/17 at 09:38; Status DC Atorvastatin Calcium (Lipitor) 80 mg DAILY PO Last administered on 07/16/17 08:38; Start 07/15/17 at 09:00; Stop 07/16/17 at 09:38; Status DC Nitroglycerin (Nitroglycerin 2% Oint) 0.5 inch Q6HR PRN TOPICAL CHEST PAIN Last administered on 07/15/17 20:17; Start 07/15/17 at 05:30; Stop 07/16/17 at 09:38; Status DC Atorvastatin Calcium (Lipitor) 10 mg DAILY PO Last administered on 07/16/17 08:39; Start 07/16/17 at 09:00; Stop 07/16/17 at 09:38; Status DC Insulin Aspart (NovoLOG SUPPLEMENTAL SCALE) 1 ACHS SLIDING SCALE SQ Last administered on 07/15/17 23:06; Start 07/15/17 at 17:00; Stop 07/16/17 at 09 :38; Status DC Zolpidem Tartrate (Ambien) 10 mg ONCE ONCE PO Last administered on 07/15/17 23:05; Start 07/15/17 at 23:00; Stop 07/15/17 at 23:01; Status DC Vital Signs / I&O Vital Signs Date Time Temp Pulse Resp B/P (MAP) Pulse Ox O2 Delivery O2 Flow Rate FiO2 07/16/17 09:00 70 07/16/17 08:15 18 07/16/17 08:00 66 07/16/17 07:20 98.4 69 18 150/78 (102) 95 07/16/17 07:00 68 07/16/17 05:00 67 07/16/17 04:30 70 07/16/17 03:23 98.6 61 18 145/78 (100) 96 07/16/17 03:00 65 07/16/17 02:00 68 07/16/17 01:00 72 07/16/17 00:00 68 07/15/17 23:34 98.4 67 18 165/87 (113) 96 07/15/17 23:00 66 07/15/17 22:00 84 07/15/17 21:00 70 07/15/17 20:00 64 07/15/17 20:00 98.3 62 18 149/81 (103) 95 07/15/17 19:00 72 07/15/17 18:00 69 07/15/17 17:00 62 07/15/17 16:00 64 07/15/17 15:15 98.4 62 18 154/71 (98) 94 07/15/17 15:00 61 07/15/17 14:00 62 07/15/17 13:00 64 07/15/17 12:00 66 07/15/17 11:15 98.3 66 18 111/62 (78) 94 07/15/17 11:00 68 07/15/17 10:00 66 I/O 07/15/17 07/15/17 07/15/17 07/16/17 07/16/17 07/16/17 07:00 15:00 23:00 07:00 15:00 23:00 Intake Total 500 ml 500 ml 360 ml Output Total 550 ml 550 ml Balance 500 ml -50 ml -190 ml Intake Oral 500 ml 360 ml IV Total 500 ml Output Urine Total 550 ml 550 ml Stool Total 0 ml Physical Exam GENERAL: NAD, AAOx3 SKIN: Warm and dry. HEAD: Atraumatic. Normocephalic. EYES: Pupils equal and round. No scleral icterus. No injection or drainage. ENT: No nasal bleeding or discharge. Mucous membranes pink and moist. NECK: Trachea midline. No JVD. CARDIOVASCULAR: Regular rate and rhythm. RESPIRATORY: No accessory muscle use. Clear to auscultation. Breath sounds equal bilaterally. GASTROINTESTINAL: Abdomen soft, non-tender, nondistended. Hepatic and splenic margins not palpable. MUSCULOSKELETAL: Extremities without clubbing, cyanosis, or edema. No obvious deformities. NEUROLOGICAL: Awake and alert. No obvious cranial nerve deficits. Motor grossly within normal limits. Five out of 5 muscle strength in the arms and legs. Normal speech. PSYCHIATRIC: Appropriate mood and affect; insight and judgment normal. Laboratory Laboratory Tests Test 07/15/17 11:00 07/15/17 17:18 07/16/17 05:57 Troponin I 0.07 NG/ML 0.07 NG/ML 0.07 NG/ML Blood Urea Nitrogen 40 MG/DL 41 MG/DL Creatinine 2.86 MG/DL 2.19 MG/DL Random Glucose 479 MG/DL 151 MG/DL Calcium Level 8.3 MG/DL 8.5 MG/DL Sodium Level 133 MEQ/L 139 MEQ/L Potassium Level 3.8 MEQ/L 3.6 MEQ/L Chloride Level 96 MEQ/L 104 MEQ/L Carbon Dioxide Level 28.9 MEQ/L 27.7 MEQ/L Anion Gap 8 MEQ/L 7 MEQ/L Estimat Glomerular Filtration Rate 27 ML/MIN 37 ML/MIN White Blood Count 5.1 TH/MM3 Red Blood Count 4.17 MIL/MM3 Hemoglobin 11.0 GM/DL Hematocrit 32.2 % Mean Corpuscular Volume 77.2 FL Mean Corpuscular Hemoglobin 26.5 PG Mean Corpuscular Hemoglobin Concent 34.3 % Red Cell Distribution Width 18.0 % Platelet Count 158 TH/MM3 Mean Platelet Volume 8.0 FL Neutrophils (%) (Auto) 56.3 % Lymphocytes (%) (Auto) 27.7 % Monocytes (%) (Auto) 11.3 % Eosinophils (%) (Auto) 4.1 % Basophils (%) (Auto) 0.6 % Neutrophils # (Auto) 2.9 TH/MM3 Lymphocytes # (Auto) 1.4 TH/MM3 Monocytes # (Auto) 0.6 TH/MM3 Eosinophils # (Auto) 0.2 TH/MM3 Basophils # (Auto) 0.0 TH/MM3 CBC Comment DIFF FINAL Differential Comment Total Protein 7.2 GM/DL Albumin 2.8 GM/DL Alkaline Phosphatase 109 U/L Aspartate Amino Transf (AST/SGOT) 13 U/L Alanine Aminotransferase (ALT/SGPT) 25 U/L Total Bilirubin 0.3 MG/DL Assessment and Plan Problem List: (1) Malignant hypertensive urgency ICD Codes: I10 - Essential (primary) hypertension Status: Acute (2) Hypertensive crisis ICD Codes: I16.9 - Hypertensive crisis, unspecified Status: Acute (3) CAD (coronary artery disease) ICD Codes: I25.10 - Atherosclerotic heart disease of [place] coronary artery without angina pectoris Status: Acute (4) Elevated troponin ICD Codes: R79.89 - Other specified abnormal findings of blood chemistry Status: Acute (5) [place] kidney injury ICD Codes: N17.9 - Acute kidney failure, unspecified; N18.9 - Chronic kidney disease, unspecified Assessment and Plan 1) HTN emergency on arrival Similar to previous episode 2) Minimally elevated trop Reviewed previous cardiac cath, mild disease 3) Con't medical management 4) Needs overall blood pressure control 5) Cardiovascularly stable for discharge Dilip Soriano DO Jul 16, 2017 10:00
--- NOTE | 2017-07-16 13:06 | EKG ---
Date Performed: 07/15/2017 Time Performed: 00:55:24 PTAGE: 62 years EKG: Sinus rhythm WITH OCCASIONAL SUPRAVENTRICULAR PREMATURE COMPLEXES Compared to prior tracing no significant change BORDERLINE ECG PREVIOUS TRACING : 06/13/17 @ 2000 DOCTOR: Logan Hutson Interpretating Date/Time 07/16/2017 13:05:06
--- NOTE | 2017-07-16 13:41 | EKG ---
Date Performed: 07/15/2017 Time Performed: 04:18:53 PTAGE: 62 years EKG: Sinus rhythm WITH OCCASIONAL SUPRAVENTRICULAR PREMATURE COMPLEXES NONSPECIFIC T-WAVE ABNORMALITY Compared to prev ious tracing slight nonspecific ST change new BORDERLINE ECG NO PREVIOUS TRACING DOCTOR: Logan Hutson Interpretating Date/Time 07/16/2017 13:39:10
== END 2017-07-16 09:37 | disposition home or self-care (01) ==
LOC: NEPC 00:36 → NEDA 05:21 → HCIS 06:24
PROVIDERS: ADMIT Family Medicine; ATTEND Family Medicine
DX: R07.9 Chest pain, unspecified (principal); R79.89 Other specified abnormal findings of blood chemistry; N17.9 Acute kidney failure, unspecified; R94.31 Abnormal electrocardiogram [ECG] [EKG]; I12.9 Hypertensive chronic kidney disease with stage 1 through stage 4 chronic kidney disease, or unspecified chronic kidney disease; N18.9 Chronic kidney disease, unspecified; E11.22 Type 2 diabetes mellitus with diabetic chronic kidney disease; D57.1 Sickle-cell disease without crisis; E03.9 Hypothyroidism, unspecified; E78.5 Hyperlipidemia, unspecified; I25.10 Atherosclerotic heart disease of native coronary artery without angina pectoris; I49.1 Atrial premature depolarization; J98.11 Atelectasis; G47.30 Sleep apnea, unspecified; M54.5 Low back pain; G89.29 Other chronic pain; Z79.01 Long term (current) use of anticoagulants; Z79.4 Long term (current) use of insulin; Z86.79 Personal history of other diseases of the circulatory system; Z86.718 Personal history of other venous thrombosis and embolism; Z86.73 Personal history of transient ischemic attack (TIA), and cerebral infarction without residual deficits; Z87.891 Personal history of nicotine dependence; Z96.642 Presence of left artificial hip joint
CPT/HCPCS: 71010; 80053; 82550; 82552; 82948; 83690; 83735; 83880; 84484; 85025; 85610; 85730; 93005; 96361; 96372; 96374; 96375; 96376; 99285; G0378; J1815; J2270; J2360; J2405; J7040; 80048

== ENCOUNTER 2017-08-01 09:59 | Emergency (ER) | payer OTHER, MEDICAID ==
[~2017-08-01] VITALS: Ht 175.3 cm; Wt 115.0 kg
[~2017-08-01 09:59] MED LIST changes: -HYDR-3535 PO
[2017-08-01 10:01] VITALS: BP 173/77; PULSE 69; RESP 18; TEMP 98.6; O2SAT 96
[2017-08-01 11:29] VITALS: BP 180/87; PULSE 62; RESP 18; O2SAT 96
[2017-08-01 11:49] LABS: AUTOMATED NEUTROPHIL # 3.3 TH/MM3 (1.8-7.7); BASOPHIL % 0.5 % (0.0-2.0); EOSINOPHIL # 0.2 TH/MM3 (0-0.4); EOSINOPHIL % 2.8 % (0.0-4.0); HEMATOCRIT 33.7 % (39.0-51.0); HEMOGLOBIN 11.3 GM/DL (13.0-17.0); LYMPH % 25.1 % (9.0-44.0); LYMPHOCYTE # 1.3 TH/MM3 (1.0-4.8); MEAN CELL VOLUME 78.8 FL (80.0-100.0); MEAN CORPUSCULAR HEMOGLOBIN 26.5 PG (27.0-34.0); MEAN CORPUSCULAR HGB CONC 33.7 % (32.0-36.0); MEAN PLATELET VOLUME 8.3 FL (7.0-11.0); MONO % 9.7 % (0.0-8.0); MONOCYTE # 0.5 TH/MM3 (0-0.9); NEUT % 61.9 % (16.0-70.0); PLATELET COUNT 166 TH/MM3 (150-450); RED BLOOD COUNT 4.27 MIL/MM3 (4.50-5.90); RED CELL DISTRIBUTION WIDTH 18.4 % (11.6-17.2); WHITE BLOOD COUNT 5.3 TH/MM3 (4.0-11.0)
--- NOTE | 2017-08-01 11:49 | RADRPT ---
EXAM DATE/TIME: 08/01/2017 11:41 [facility] COMPARISON: CHEST SINGLE AP, July 15, 2017, 1:09. INDICATIONS : Left side chest pain. MEDICAL HISTORY : Cerebrovascular disease. Aneurysm, abdominal. Hypertension. CAD. Pancreatitis SURGICAL HISTORY : Abdominal aortic aneurysm repair. Coronary artery stent. ENCOUNTER: Initial ACUITY: 1 day PAIN SCORE: 6/10 LOCATION: Left chest FINDINGS: A single view of the chest demonstrates the lungs to be symmetrically aerated without evidence of mas s, infiltrate or effusion. The cardiomediastinal contours are unremarkable. Osseous structures are intact. Stable minimal left basilar scarring CONCLUSION: No acute disease. No significant change has occurred. Jadiel Alexandre MD on August 01, 2017 at 11:45 Board Certified Radiologist. This report was verified electronically.
[2017-08-01] MEDS ORDERED: MORPHINE SULFATE 2 MG/ML INJ IV PUSH ONE (12:00)
[2017-08-01] MEDS ORDERED: ORPHENADRINE INJ 60 MG/2 ML AMP IM ONE (12:00)
--- NOTE | 2017-08-01 12:26 | PD ---
HPI Chief Complaint: Chest Pain Time Seen by Provider: 11:42 Travel History International Travel<30 days: No Contact w/Intl Traveler<30days: No Traveled to known affect area: No History of Present Illness HPI To 8-year-old man who presents to the emergency department with crampy chest pain, low back pain, rating through to his left side of his body. He states he gets similar symptoms every month or couple times a month. They're similar to multiple previous admissions that he has had. He states this feels similar to previous episodes, maybe not as bad as when he was in the ER previously. Symptoms are not exertional. They're worse with certain movements. No other complaints. He has been out of Lasix for about 3 days. History Past Medical History Narrative Medical CAD Diabetes DVT, on Eliquis Hyperlipidemia Hypertension Sleep apnea PNEUMOCCOCAL Vaccine (Year): 3 Social History Alcohol Use: No Tobacco Use: No (QUIT 2005) Allergies-Medications (Allergen,Severity, Reaction): Coded Allergies: benazepril (Verified Allergy, Severe, ANGIOEDEMA, 08/01/17) captopril (Verified Allergy, Severe, ANGIOEDEMA, 08/01/17) enalaprilat (Verified Allergy, Severe, 08/01/17) ANGIOEDEMA fosinopril (Verified Allergy, Severe, ANGIOEDEMA, 08/01/17) lisinopril (Verified Allergy, Severe, ANGIOEDEMA, 08/01/17) quinapril (Verified Allergy, Severe, ANGIOEDEMA, 08/01/17) hydromorphone (Verified Adverse Reaction, Intermediate, ITCHING, 08/01/17) Reported Meds & Prescriptions Reported Meds & Active Scripts Active Torsemide 10 Mg Tab 10 Mg PO BID Gabapentin 100 Mg Cap 200 Mg PO TID Nifedipine ER 24 HR (Nifedipine) 60 Mg Tab 60 Mg PO Q12HR Isosorbide Mononitrate ER (Isosorbide Mononitrate) 60 Mg Tab 90 Mg PO DAILY@07 Flexeril (Cyclobenzaprine HCl) 10 Mg Tab 10 Mg PO TID Hydralazine (Hydralazine HCl) 100 Mg Tab 100 Mg PO Q8H Lantus Inj (Insulin Glargine) 1,000 Unit/10 Ml Vial 75 Units SQ BID 30 Days Cardura (Doxazosin Mesylate) 2 Mg Tab 2 Mg PO DAILY Cozaar (Losartan Potassium) 50 Mg Tab 100 Mg PO DAILY Plavix (Clopidogrel Bisulfate) 75 Mg Tab 75 Mg PO DAILY Reported Crestor (Rosuvastatin Calcium) 40 Mg Tab 40 Mg PO DAILY Eliquis (Apixaban) 5 Mg Tab 5 Mg PO BID Zetia (Ezetimibe) 10 Mg Tab 10 Mg PO DAILY Neupro Patch 24 HR (Rotigotine Patch 24 HR) 3 Mg/24 Hr Patch 3 Mg T-DERMAL DAILY Klonopin (Clonazepam) 2 Mg Tab 2 Mg PO BID Ambien (Zolpidem Tartrate) 10 Mg Tab 10 Mg PO HS PRN Novolin R Inj (Insulin Human Regular) 1,000 Unit/10 Ml Vial 0 SQ TIDACHS Sliding Scale As Directed. Nitroglycerin SL (Nitroglycerin) 0.4 Mg Subl 0.4 Mg SL DIRECTED PRN ONE TABLET UNDER THE TONGUE NEEDED FOR CHEST PAIN, MAY REPEAT EVERY FIVE MINUTES FOR A TOTAL OF 3 DOSES OR CALL 911 IF NO RELIEF Coreg (Carvedilol) 25 Mg Tab 25 Mg PO BID Review of Systems Except as stated in HPI: all other systems reviewed are Neg Physical Exam Narrative GENERAL: 62-year-old man, no acute distress. SKIN: Focused skin assessment warm/dry. NECK: Trachea midline. No JVD. CARDIOVASCULAR: Regular rate and rhythm. No murmur appreciated. RESPIRATORY: No accessory muscle use. Clear to auscultation. Breath sounds equal bilaterally. GASTROINTESTINAL: Abdomen soft, non-tender, nondistended. Hepatic and splenic margins not palpable. MUSCULOSKELETAL: No obvious deformities. No edema. NEUROLOGICAL: Awake and alert. No obvious cranial nerve deficits. Motor grossly within normal limits. Normal speech. PSYCHIATRIC: Appropriate mood and affect; insight and judgment normal. Data Data Last Documented VS Vital Signs Date Time Temp Pulse Resp B/P (MAP) Pulse Ox O2 Delivery O2 Flow Rate FiO2 08/01/17 12:13 20 08/01/17 11:29 61 96 Room Air 08/01/17 11:29 180/87 (118) 08/01/17 10:01 98.6 Orders Orders Electrocardiogram (08/01/17 11:16) Complete Blood Count With Diff (08/01/17 11:16) Ckmb (Isoenzyme) Profile (08/01/17 11:16) Troponin I (08/01/17 11:16) Chest, Single Ap (08/01/17 11:16) Iv Access Insert/Monitor (08/01/17 11:16) Ecg Monitoring (08/01/17 11:16) Oxygen Administration (08/01/17 11:16) Oximetry (08/01/17 11:16) Comprehensive Metabolic Panel (08/01/17 11:16) Lipase (08/01/17 11:16) Orphenadrine Inj (Norflex Inj) (08/01/17 12:00) Morphine Inj (Morphine Inj) (08/01/17 12:00) CKMB (08/01/17 11:33) CKMB% (08/01/17 11:33) Ondansetron Inj (Zofran Inj) (08/01/17 12:53) Insulin Aspart Inj (Novolog Inj) (08/01/17 13:15) Insulin Detemir Inj (Levemir Inj) (08/01/17 13:07) Labs Laboratory Tests Test 08/01/17 11:33 White Blood Count 5.3 TH/MM3 Red Blood Count 4.27 MIL/MM3 Hemoglobin 11.3 GM/DL Hematocrit 33.7 % Mean Corpuscular Volume 78.8 FL Mean Corpuscular Hemoglobin 26.5 PG Mean Corpuscular Hemoglobin Concent 33.7 % Red Cell Distribution Width 18.4 % Platelet Count 166 TH/MM3 Mean Platelet Volume 8.3 FL Neutrophils (%) (Auto) 61.9 % Lymphocytes (%) (Auto) 25.1 % Monocytes (%) (Auto) 9.7 % Eosinophils (%) (Auto) 2.8 % Basophils (%) (Auto) 0.5 % Neutrophils # (Auto) 3.3 TH/MM3 Lymphocytes # (Auto) 1.3 TH/MM3 Monocytes # (Auto) 0.5 TH/MM3 Eosinophils # (Auto) 0.2 TH/MM3 Basophils # (Auto) 0.0 TH/MM3 CBC Comment DIFF FINAL Differential Comment Blood Urea Nitrogen 23 MG/DL Creatinine 2.20 MG/DL Random Glucose 476 MG/DL Total Protein 7.5 GM/DL Albumin 2.9 GM/DL Calcium Level 8.4 MG/DL Alkaline Phosphatase 121 U/L Aspartate Amino Transf (AST/SGOT) 16 U/L Alanine Aminotransferase (ALT/SGPT) 26 U/L Total Bilirubin 0.3 MG/DL Sodium Level 137 MEQ/L Potassium Level 4.7 MEQ/L Chloride Level 104 MEQ/L Carbon Dioxide Level 26.5 MEQ/L Anion Gap 7 MEQ/L Estimat Glomerular Filtration Rate 37 ML/MIN Total Creatine Kinase 174 U/L Creatine Kinase MB 1.6 NG/ML Troponin I 0.08 NG/ML Lipase 125 U/L MDM Medical Decision Making Medical Screen Exam Complete: Yes Emergency Medical Condition: Yes Interpretation(s) LABS: CBC is remarkable for mild anemia. CMP is remarkable for mildly elevated BUN/creatinine, glucose 476 Troponin 0.08 Lipase normal Differential Diagnosis Chest pain, cramping, back pain, chest wall pain, ACS, other Narrative Course Medical decision making 62-year-old male with intermittent back and chest pain, multiple previous episodes, multiple previous cardiac evaluations for the same. He has some renal insufficiency mass of mildly elevated troponins in the past. He states his symptoms are typically relieved by Norflex and morphine. Looks well. We' ll plan some chronic treatment for likely musculoskeletal pain. FINAL: Labs unremarkable except for elevated blood sugar. Patient did not take his morning insulin. We'll give him his morning insulin, some short acting, he' ll continue to check it at home. Outpatient follow-up. Diagnosis Primary Impression: Chest pain Additional Instructions: Follow-up with your primary doctor. Continue current medications. Return to the emergency department for any new or worsening symptoms. Med/Other Pt SpecificInfo: No Change to Meds Disposition: 01 DISCHARGE HOME Condition: Stable Xander Wilson MD Aug 01, 2017 12:26
[2017-08-01 12:30] LABS: ALBUMIN 2.9 GM/DL (3.4-5.0); ALKALINE PHOSPHATASE 121 U/L (45-117); ALT (GPT) 26 U/L (12-78); AST (GOT) 16 U/L (15-37); BICARBONATE 26.5 MEQ/L (21.0-32.0); BLOOD UREA NITROGEN 23 MG/DL (7-18); CALCIUM 8.4 MG/DL (8.5-10.1); CHLORIDE 104 MEQ/L (98-107); GLOMERULAR FILTRATION RATE 37 ML/MIN (>89); LIPASE 125 U/L (73-393); SODIUM (NA) 137 MEQ/L (136-145); TOTAL BILIRUBIN ADULT 0.3 MG/DL (0.2-1.0); TOTAL PROTEIN 7.5 GM/DL (6.4-8.2); TROPONIN I 0.08 NG/ML (0.02-0.05)
[2017-08-01 12:42] LABS: GLUCOSE,RANDOM 476 MG/DL (74-106)
[2017-08-01] MEDS ORDERED: ONDANSETRON HCL 4 MG/2 ML VIAL ONE (12:53)
[2017-08-01] MEDS ORDERED: INSULIN DETEMIR 100 UNITS/ML VIAL SQ STA (13:07)
[2017-08-01] MEDS ORDERED: INSULIN ASPART 1,000 UNITS/10 ML VIAL SQ ONE (13:15)
[2017-08-01] MEDS ORDERED: ONDANSETRON HCL 4 MG/2 ML VIAL IV ONE (13:45)
[2017-08-01 14:33] VITALS: BP 155/82; PULSE 60; RESP 16; O2SAT 96
--- NOTE | 2017-08-02 11:13 | EKG ---
Date Performed: 08/01/2017 Time Performed: 10:22:34 PTAGE: 62 years EKG: Sinus rhythm NONSPECIFIC T-WAVE ABNORMALITY BORDERLINE ECG PREVIOUS TRACING : 07/20/2017 06.29 DOCTOR: Xander Dale Interpretating Date/Time 08/02/2017 11:11:54
== END 2017-08-01 14:34 | disposition home or self-care (01) ==
LOC: NEPD 09:59
DX: R07.9 Chest pain, unspecified (principal); M54.5 Low back pain; E11.65 Type 2 diabetes mellitus with hyperglycemia; E78.5 Hyperlipidemia, unspecified; I10 Essential (primary) hypertension; I25.10 Atherosclerotic heart disease of native coronary artery without angina pectoris; G47.30 Sleep apnea, unspecified; Z79.01 Long term (current) use of anticoagulants; Z79.02 Long term (current) use of antithrombotics/antiplatelets; Z79.4 Long term (current) use of insulin; Z79.899 Other long term (current) drug therapy; Z87.891 Personal history of nicotine dependence
CPT/HCPCS: 71045; 80053; 82550; 82552; 83690; 84484; 85025; 93005; 96372; 96374; 96375; 99285; J1815; J2270; J2360; J2405

== ENCOUNTER 2017-08-19 13:31 | Observation (INO) | payer OTHER, MEDICAID ==
[2017-08-19] VITALS (8 sets, daily range): BP systolic 156–182; BP diastolic 75–84; PULSE 59–72; RESP 16–22; TEMP 98.1–98.8; O2SAT 96–98
[~2017-08-19] VITALS: Ht 175.3 cm; Wt 120.0 kg
[2017-08-19] MEDS ORDERED: MORPHINE SULFATE 2 MG/ML INJ IV PUSH ONE ×2 (14:30→16:00)
--- NOTE | 2017-08-19 14:35 | PD ---
HPI Chief Complaint: Chest Pain Time Seen by Provider: 13:58 Travel History International Travel<30 days: No Contact w/Intl Traveler<30days: No Traveled to known affect area: No History of Present Illness HPI 62yo M with PMH of HTN, DM, CAD s/p cardiac stent, DVT on eliquis presents to the ED with c/o left sided chest pain for 2 hours. Said it was pressure, nonradiating and constant. Denies any sob, n/v, abdominal pain, focal weakness or numbness. Pt said he took nitroglycerin but it gave him a headache. Pt takes eliquis because of history of DVT. He had similar chest pain last night but it resolved on its own. No exacerbating or alleviating factors. PFSH Past Medical History Hx Anticoagulant Therapy: Yes (ELOQUIS) AAA: Yes (JUL 2011/ ) Anemia: Yes Arthritis: No Asthma: No Autoimmune Disease: No Blood Disorders: Yes (SICKLE CELL TRAIT) Anxiety: No Depression: No Heart Rhythm Problems: Yes Cancer: No Cardiac Catheterization: Yes (2016) Cardiovascular Problems: Yes High Cholesterol: Yes Chemotherapy: No Chest Pain: Yes Congestive Heart Failure: No COPD: No Cerebrovascular Accident: Yes Coronary Artery Disease: Yes Diabetes: Yes Patient Takes Glucophage: No Diminished Hearing: No Deep Vein Thrombosis: Yes (LT LEG) Endocrine: Yes GERD: No Glaucoma: No Genitourinary: No Headaches: No Hepatitis: No Hiatal Hernia: No Heparin Induced Thrombocytopen: No Hypertension: Yes Immune Disorder: No Implanted Vascular Access Dvce: Yes (RIGHT INSULIN PUMP removed) Kidney Stones: No Musculoskeletal: No Neurologic: No Psychiatric: No Reproductive: No Respiratory: Yes Immunizations Current: Yes Migraines: No Myocardial Infarction: No Pancreatitis: Yes Radiation Therapy: No Renal Failure: No Seizures: No Sickle Cell Disease: Yes (TRAIT) Sleep Apnea: Yes Thyroid Disease: Yes Ulcer: No Tetanus Vaccination: < 5 Years Influenza Vaccination: No PNEUMOCCOCAL Vaccine (Year): 3 Past Surgical History Abdominal Aneurysm Repair: Yes (2012) Abdominal Surgery: Yes AICD: No Appendectomy: No Arteriovenous Shunt: No Body Medical Devices: STENTS Cardiac Surgery: Yes (stentX5) Cholecystectomy: Yes Coronary Artery Bypass Graft: No Coronary Stent: Yes (2009 X 2, 2010 X2) Ear Surgery: No Endocrine Surgery: No Eye Surgery: No Genitourinary Surgery: No Gynecologic Surgery: No Insulin Pump: Yes (removed) Joint Replacement: Yes (LEFT HIP 1999) Neurologic Surgery: No Oral Surgery: No Pacemaker: No Thoracic Surgery: No Other Surgery: Yes (GB REMOVED) Social History Alcohol Use: No Tobacco Use: No (QUIT 2005) Substance Use: No Allergies-Medications (Allergen,Severity, Reaction): Coded Allergies: benazepril (Verified Allergy, Severe, ANGIOEDEMA, 08/19/17) captopril (Verified Allergy, Severe, ANGIOEDEMA, 08/19/17) enalaprilat (Verified Allergy, Severe, 08/19/17) ANGIOEDEMA fosinopril (Verified Allergy, Severe, ANGIOEDEMA, 08/19/17) lisinopril (Verified Allergy, Severe, ANGIOEDEMA, 08/19/17) quinapril (Verified Allergy, Severe, ANGIOEDEMA, 08/19/17) hydromorphone (Verified Adverse Reaction, Intermediate, ITCHING, 08/19/17) Reported Meds & Prescriptions Reported Meds & Active Scripts Active Nifedipine ER 24 HR (Nifedipine) 60 Mg Tab 60 Mg PO Q12HR Isosorbide Mononitrate ER (Isosorbide Mononitrate) 60 Mg Tab 90 Mg PO DAILY@07 Hydralazine (Hydralazine HCl) 100 Mg Tab 100 Mg PO Q8H Cardura (Doxazosin Mesylate) 2 Mg Tab 2 Mg PO DAILY Cozaar (Losartan Potassium) 50 Mg Tab 100 Mg PO DAILY Plavix (Clopidogrel Bisulfate) 75 Mg Tab 75 Mg PO DAILY Reported Lasix (Furosemide) 20 Mg Tab 20 Mg PO DAILY Lantus Inj (Insulin Glargine) 1,000 Unit/10 Ml Vial 84 Units SQ BID Gabapentin 800 Mg Tab 800 Mg PO TID Crestor (Rosuvastatin Calcium) 40 Mg Tab 40 Mg PO DAILY Eliquis (Apixaban) 5 Mg Tab 5 Mg PO BID Zetia (Ezetimibe) 10 Mg Tab 10 Mg PO DAILY Neupro Patch 24 HR (Rotigotine Patch 24 HR) 3 Mg/24 Hr Patch 3 Mg T-DERMAL DAILY Ambien (Zolpidem Tartrate) 10 Mg Tab 10 Mg PO HS PRN Novolin R Inj (Insulin Human Regular) 1,000 Unit/10 Ml Vial 0 SQ TIDACHS Sliding Scale As Directed. Nitroglycerin SL (Nitroglycerin) 0.4 Mg Subl 0.4 Mg SL DIRECTED PRN ONE TABLET UNDER THE TONGUE NEEDED FOR CHEST PAIN, MAY REPEAT EVERY FIVE MINUTES FOR A TOTAL OF 3 DOSES OR CALL 911 IF NO RELIEF Coreg (Carvedilol) 25 Mg Tab 25 Mg PO BID Review of Systems Except as stated in HPI: all other systems reviewed are Neg Physical Exam Narrative GENERAL: 62yo M in mild distress. SKIN: Focused skin assessment warm/dry. HEAD: Atraumatic. Normocephalic. EYES: Pupils equal and round. No scleral icterus. No injection or drainage. ENT: No nasal bleeding or discharge. Mucous membranes pink and moist. NECK: Trachea midline. No JVD. CARDIOVASCULAR: Regular rate and rhythm. No murmur appreciated. RESPIRATORY: No accessory muscle use. Clear to auscultation. Breath sounds equal bilaterally. GASTROINTESTINAL: Abdomen soft, non-tender, nondistended. MUSCULOSKELETAL: No obvious deformities. No clubbing. No cyanosis. Trace bilateral lower ext edema. NEUROLOGICAL: Awake and alert. No obvious cranial nerve deficits. Motor grossly within normal limits. Normal speech. PSYCHIATRIC: Appropriate mood and affect; insight and judgment normal. Data Data Last Documented VS Vital Signs Date Time Temp Pulse Resp B/P (MAP) Pulse Ox O2 Delivery O2 Flow Rate FiO2 08/19/17 16:00 59 16 182/83 (116) 97 08/19/17 15:00 Nasal Cannula 2.00 08/19/17 13:42 98.8 Orders Orders Basic Metabolic Panel (Bmp) (08/19/17 14:21) Complete Blood Count With Diff (08/19/17 14:21) Magnesium (Mg) (08/19/17 14:21) Prothrombin Time / Inr (Pt) (08/19/17 14:21) Act Partial Throm Time (Ptt) (08/19/17 14:21) Troponin I (08/19/17 14:21) Chest, Single Ap (08/19/17 14:21) Morphine Inj (Morphine Inj) (08/19/17 14:30) Ondansetron Inj (Zofran Inj) (08/19/17 14:45) Morphine Inj (Morphine Inj) (08/19/17 16:00) Ondansetron Inj (Zofran Inj) (08/19/17 16:00) Admit Order (Ed Use Only) (08/19/17 16:16) Labs Laboratory Tests Test 08/19/17 13:55 White Blood Count 4.6 TH/MM3 Red Blood Count 4.13 MIL/MM3 Hemoglobin 10.5 GM/DL Hematocrit 32.3 % Mean Corpuscular Volume 78.3 FL Mean Corpuscular Hemoglobin 25.4 PG Mean Corpuscular Hemoglobin Concent 32.4 % Red Cell Distribution Width 18.6 % Platelet Count 189 TH/MM3 Mean Platelet Volume 7.7 FL Neutrophils (%) (Auto) 62.0 % Lymphocytes (%) (Auto) 24.9 % Monocytes (%) (Auto) 10.8 % Eosinophils (%) (Auto) 1.9 % Basophils (%) (Auto) 0.4 % Neutrophils # (Auto) 2.8 TH/MM3 Lymphocytes # (Auto) 1.1 TH/MM3 Monocytes # (Auto) 0.5 TH/MM3 Eosinophils # (Auto) 0.1 TH/MM3 Basophils # (Auto) 0.0 TH/MM3 CBC Comment DIFF FINAL Differential Comment Prothrombin Time 11.2 SEC Prothromb Time International Ratio 1.1 RATIO Activated Partial Thromboplast Time 28.3 SEC Blood Urea Nitrogen 28 MG/DL Creatinine 2.10 MG/DL Random Glucose 375 MG/DL Calcium Level 8.5 MG/DL Magnesium Level 2.0 MG/DL Sodium Level 140 MEQ/L Potassium Level 3.9 MEQ/L Chloride Level 105 MEQ/L Carbon Dioxide Level 28.6 MEQ/L Anion Gap 6 MEQ/L Estimat Glomerular Filtration Rate 39 ML/MIN Troponin I 0.08 NG/ML MDM Medical Decision Making Medical Screen Exam Complete: Yes Emergency Medical Condition: Yes Interpretation(s) EKG: NSR 60bpm. Normal axis. No significant ST segment elevation or depression. Differential Diagnosis ACS vs. pericarditis vs. pneumonia vs. GERD Narrative Course 62yo M with HTN, CAD s/p stent, DM here with left sided chest pain that is pressure like. Pt last had cardiac cath 03/2017 that showed mild coronary artery disease and was medically managed. Pt follows with Dr. Borges. Labs reviewed, no leukocytosis. H/H low but at baseline. Creatinine 2.10 which is also at baseline. Glucose elevated at 375. No increased anion gap. Troponin mildly elevated at 0.08. This is pt's baseline. CXR negative. Pt said he took sublingual nitro and did not help his chest pain and gave him a headache so I gave morphine 2mg IV. Pt reevaluated at bedside and said pain has improved a little but still with considerable pain. Will give another morphine 2mg IV. Even though pt had recent cath, given pt's persistent chest pain with his numerous cardiac risk factors, want to observe repeat EKG and cardiac enzymes to r/o ACS. Pt cannot be admitted to chest pain center secondary to troponin of 0.08 so will admit to hospitalist. Diagnosis Primary Impression: Chest pain Qualified Codes: R07.9 - Chest pain, unspecified Admitting Information Admitting Physician Requests: Observation Gilda Wetzel DO Aug 19, 2017 14:35
[2017-08-19] MEDS ORDERED: ONDANSETRON HCL 4 MG/2 ML VIAL IV PUSH ONE ×2 (14:45→16:00)
--- NOTE | 2017-08-19 14:59 | RADRPT ---
EXAM DATE/TIME: 08/19/2017 14:42 [facility] COMPARISON: CHEST SINGLE AP, August 01, 2017, 11:41. INDICATIONS : Chest pain for 3 days MEDICAL HISTORY : Cerebrovascular disease. Aneurysm, abdominal. Hypertension. CAD. Pancreatitis SURGICAL HISTORY : Abdominal aortic aneurysm repair. Coronary artery stent. ENCOUNTER: Initial ACUITY: 3 days PAIN SCORE: 10/10 LOCATION: Left chest FINDINGS: The lungs are clear without infiltrate, nodule, or mass except for maybe minimal atelectasis in both lung bases. There is no appreciable pleural effusion for technique. Heart and mediastinum are unrem arkable. CONCLUSION: No acute cardiopulmonary disease. Akanksha Holley MD on August 19, 2017 at 14:55 Board Certified Radiologist. This report was verified electronically.
[2017-08-19 15:18] LABS: AUTOMATED NEUTROPHIL # 2.8 TH/MM3 (1.8-7.7); BASOPHIL % 0.4 % (0.0-2.0); EOSINOPHIL # 0.1 TH/MM3 (0-0.4); EOSINOPHIL % 1.9 % (0.0-4.0); HEMATOCRIT 32.3 % (39.0-51.0); HEMOGLOBIN 10.5 GM/DL (13.0-17.0); LYMPH % 24.9 % (9.0-44.0); LYMPHOCYTE # 1.1 TH/MM3 (1.0-4.8); MEAN CELL VOLUME 78.3 FL (80.0-100.0); MEAN CORPUSCULAR HEMOGLOBIN 25.4 PG (27.0-34.0); MEAN CORPUSCULAR HGB CONC 32.4 % (32.0-36.0); MEAN PLATELET VOLUME 7.7 FL (7.0-11.0); MONO % 10.8 % (0.0-8.0); MONOCYTE # 0.5 TH/MM3 (0-0.9); PLATELET COUNT 189 TH/MM3 (150-450); RED BLOOD COUNT 4.13 MIL/MM3 (4.50-5.90); RED CELL DISTRIBUTION WIDTH 18.6 % (11.6-17.2); WHITE BLOOD COUNT 4.6 TH/MM3 (4.0-11.0)
[2017-08-19 15:31] LABS: BICARBONATE 28.6 MEQ/L (21.0-32.0); CALCIUM 8.5 MG/DL (8.5-10.1); CREATININE 2.1 MG/DL (0.60-1.30)
[2017-08-19 15:34] LABS: TROPONIN I 0.08 NG/ML (0.02-0.05)
[2017-08-19 15:36] LABS: INTERNATIONAL NORMALIZED RATIO 1.1 RATIO; PROTHROMBIN TIME - PATIENT 11.2 SEC (9.8-11.6)
[2017-08-19] MEDS ORDERED: LANTUS2P SQ (16:37)
[2017-08-19] MEDS ORDERED: FURO1TAB62 PO (16:37)
[2017-08-19] MEDS ORDERED: GABA800T PO (16:37)
[2017-08-19] MEDS ORDERED: GLUCAGON 1 MG/ML VIAL OTHER PRN (16:45)
[2017-08-19] MEDS ORDERED: DEXTROSE 50% IN WATER 50 ML VIAL(D50) IV PUSH PRN (16:45)
[2017-08-19] MEDS ORDERED: NITROGLYCERIN 2% OINT 1 GM PACKET TOPICAL ONE (16:45)
--- NOTE | 2017-08-19 16:52 | HHI.HP ---
[facility] Phys[facility] Non-Staff Admission Diagnosis Chest pain Diagnoses: (1) Chest pain Diagnosis: Principal Chief Complaint: chest pain Travel History International Travel<30 Days: No Contact w/Intl Traveler <30 Da: No Traveled to Known Affected Are: No History of Present Illness patient is a 62 y/o male with history of CAD, hypertension, diabetes, CKD, PVD and DVT presented to ER with chest pain. he says the the pain started yesterday. pain is localized to the left chest with no radiation. pain was not associated with nausea, emesis, sob or diaphoresis.of note he was recently admitted to this hospital for chest pain, evaluated by cardiology who recommended medical treatment. he had a cardiac cath about six months ago which showed mild CAD. the pain had improved at the time of my evaluation. Review of Systems Constitutional: DENIES: Fever, Weight loss, Chills, Night Sweats Eyes: DENIES: Blurred vision, Diplopia, Vision loss, Double Vision Ears, nose, mouth, throat: DENIES: Tinnitus, Vertigo, Throat pain, Epistaxis Respiratory: DENIES: Apneas, Cough, Snoring, Wheezing, Hemoptysis, Sputum production, Shortness of breath Cardiovascular: COMPLAINS OF: Chest pain, DENIES: Palpitations, Syncope, Dyspnea on Exertion, PND, Lower Extremity Edema, Orthopnea, Claudication Gastrointestinal: DENIES: Abdominal pain, Black stools, Bloody stools, Constipation, Diarrhea, Nausea, Vomiting, Difficulty Swallowing, Anorexia Genitourinary: DENIES: Urinary frequency, Urgency, Hematuria, Dysuria Musculoskeletal: DENIES: Joint pain, Muscle aches, Stiffness, Joint Swelling Integumentary: DENIES: Rash Neurologic: DENIES: Abnormal gait, Headache, Localized weakness, Paresthesias, Seizures, Speech Problems, Tremor, Poor Balance Psychiatric: DENIES: Anxiety, Confusion, Mood changes, Depression, Hallucinations, Agitation, Suicidal Ideation, Homicidal Ideation, Delusions Past Family Social History Past Medical History DM2, CAD, Angioedema, anemia, sickle cell trait, DVT, sleep apnea, hypothyroidism Past Surgical History Past Surgical History stents: 2009x2, 2010x2, 2017x1, left hip replacement Reported Medications Torsemide 10 Mg Tab 10 Mg PO BID Gabapentin 100 Mg Cap 200 Mg PO TID Nifedipine ER 24 HR (Nifedipine) 60 Mg Tab 60 Mg PO Q12HR Isosorbide Mononitrate ER (Isosorbide Mononitrate) 60 Mg Tab 90 Mg PO DAILY@07 Flexeril (Cyclobenzaprine HCl) 10 Mg Tab 10 Mg PO TID Hydralazine (Hydralazine HCl) 100 Mg Tab 100 Mg PO Q8H Lantus Inj (Insulin Glargine) 1,000 Unit/10 Ml Vial 75 Units SQ BID 30 Days Cardura (Doxazosin Mesylate) 2 Mg Tab 2 Mg PO DAILY Cozaar (Losartan Potassium) 50 Mg Tab 100 Mg PO DAILY Plavix (Clopidogrel Bisulfate) 75 Mg Tab 75 Mg PO DAILY Reported Crestor (Rosuvastatin Calcium) 40 Mg Tab 40 Mg PO DAILY Eliquis (Apixaban) 5 Mg Tab 5 Mg PO BID Zetia (Ezetimibe) 10 Mg Tab 10 Mg PO DAILY Neupro Patch 24 HR (Rotigotine Patch 24 HR) 3 Mg/24 Hr Patch 3 Mg T-DERMAL DAILY Klonopin (Clonazepam) 2 Mg Tab 2 Mg PO BID Ambien (Zolpidem Tartrate) 10 Mg Tab 10 Mg PO HS PRN Novolin R Inj (Insulin Human Regular) 1,000 Unit/10 Ml Vial 0 SQ TIDACHS Sliding Scale As Directed. Nitroglycerin SL (Nitroglycerin) 0.4 Mg Subl 0.4 Mg SL DIRECTED PRN ONE TABLET UNDER THE TONGUE NEEDED FOR CHEST PAIN, MAY REPEAT EVERY FIVE MINUTES FOR A TOTAL OF 3 DOSES OR CALL 911 IF NO RELIEF Coreg (Carvedilol) 25 Mg Tab 25 Mg PO BID Allergies: Coded Allergies: benazepril (Verified Allergy, Severe, ANGIOEDEMA, 08/19/17) captopril (Verified Allergy, Severe, ANGIOEDEMA, 08/19/17) enalaprilat (Verified Allergy, Severe, 08/19/17) ANGIOEDEMA fosinopril (Verified Allergy, Severe, ANGIOEDEMA, 08/19/17) lisinopril (Verified Allergy, Severe, ANGIOEDEMA, 08/19/17) quinapril (Verified Allergy, Severe, ANGIOEDEMA, 08/19/17) hydromorphone (Verified Adverse Reaction, Intermediate, ITCHING, 08/19/17) Active Ordered Medications Inpatient Medications Morphine Sulfate (Morphine Inj) 2 mg ONCE ONCE IV PUSH ; Start 08/19/17 at 16:00 ; Stop 08/19/17 at 16:01; Status DC Ondansetron HCl (Zofran Inj) 4 mg ONCE ONCE IV PUSH ; Start 08/19/17 at 16:00; Stop 08/19/17 at 16:01; Status DC Social History no smoking or drinking. Physical Exam Vital Signs Vital Signs Date Time Temp Pulse Resp B/P (MAP) Pulse Ox O2 Delivery O2 Flow Rate FiO2 08/19/17 15:00 62 18 159/77 (104) 96 Nasal Cannula 2.00 08/19/17 13:54 72 22 169/77 (107) 98 08/19/17 13:50 Room Air 08/19/17 13:42 98.8 64 16 167/75 (105) 96 Physical Exam GENERAL: This is a well-nourished, well-developed patient, in no apparent distress. SKIN: No rashes, ecchymoses or lesions. Cool and dry. HEAD: Atraumatic. Normocephalic. No temporal or scalp tenderness. EYES: Pupils equal round and reactive. Extraocular motions intact. No scleral icterus. No injection or drainage. ENT: Nose without bleeding, purulent drainage or septal hematoma. Throat without erythema, tonsillar hypertrophy or exudate. Uvula midline. Airway patent. NECK: Trachea midline. No JVD or lymphadenopathy. Supple, nontender, no meningeal signs. CARDIOVASCULAR: Regular rate and rhythm without murmurs, gallops, or rubs. RESPIRATORY: Clear to auscultation. Breath sounds equal bilaterally. No wheezes , rales, or rhonchi. GASTROINTESTINAL: Abdomen soft, non-tender, nondistended. No hepato-splenomegaly , or palpable masses. No guarding. MUSCULOSKELETAL: Extremities without clubbing, cyanosis, or edema. No joint tenderness, effusion, or edema noted. No calf tenderness. Negative Homans sign bilaterally. NEUROLOGICAL: Awake and alert. Cranial nerves II through XII intact. Motor and sensory grossly within normal limits. Five out of 5 muscle strength in all muscle groups. Normal speech. Laboratory Laboratory Tests Test 08/19/17 13:55 White Blood Count 4.6 Red Blood Count 4.13 Hemoglobin 10.5 Hematocrit 32.3 Mean Corpuscular Volume 78.3 Mean Corpuscular Hemoglobin 25.4 Mean Corpuscular Hemoglobin Concent 32.4 Red Cell Distribution Width 18.6 Platelet Count 189 Mean Platelet Volume 7.7 Neutrophils (%) (Auto) 62.0 Lymphocytes (%) (Auto) 24.9 Monocytes (%) (Auto) 10.8 Eosinophils (%) (Auto) 1.9 Basophils (%) (Auto) 0.4 Neutrophils # (Auto) 2.8 Lymphocytes # (Auto) 1.1 Monocytes # (Auto) 0.5 Eosinophils # (Auto) 0.1 Basophils # (Auto) 0.0 CBC Comment DIFF FINAL Differential Comment Prothrombin Time 11.2 Prothromb Time International Ratio 1.1 Activated Partial Thromboplast Time 28.3 Blood Urea Nitrogen 28 Creatinine 2.10 Random Glucose 375 Calcium Level 8.5 Magnesium Level 2.0 Sodium Level 140 Potassium Level 3.9 Chloride Level 105 Carbon Dioxide Level 28.6 Anion Gap 6 Estimat Glomerular Filtration Rate 39 Troponin I 0.08 Result Diagram: 08/19/17 1355 08/19/17 1355 Imaging Last Impressions Chest X-Ray 08/19/17 1421 Signed Impressions: Service Date/Time: Saturday, August 19, 2017 14:42 - CONCLUSION: No acute cardiopulmonary disease. Akanksha Holley MD EKG; NSR with no acute ST-T changes. Caprini VTE Risk Assessment Caprini VTE Risk Assessment: Mod/High Risk (score >= 2) Caprini Risk Assessment Model Point Value = 1 Point Value = 2 Point Value = 3 Point Value = 5 Age 41-60 Minor surgery BMI > 25 kg/m2 Swollen legs Varicose veins or History of unexplained or recurrent spontaneous Oral contraceptives or hormone replacement Sepsis (< 1 month) Serious lung disease, including pneumonia (< 1 month) Abnormal pulmonary function Acute myocardial infarction Congestive heart failure (< 1 month) History of inflammatory bowel disease Medical patient at bed rest Age 61-74 Arthroscopic surgery Major open surgery (> 45 min) Laparoscopic surgery (> 45 min) Malignancy Confined to bed (> 72 hours) Immobilizing plaster cast Central venous access Age >= 75 History of VTE Family history of VTE Factor V Leiden Prothrombin [id number] Lupus anticoagulant Anticardiolipin antibodies Elevated serum homocysteine Heparin-induced thrombocytopenia Other congenital or acquired thrombophilia Stroke (< 1 month) Elective arthroplasty Hip, pelvis, or leg fracture Acute spinal cord injury (< 1 month) Prophylaxis Regimen Total Risk Factor Score Risk Level Prophylaxis Regimen 0-1 Low Early ambulation 2 Moderate Order ONE of the following: *Sequential Compression Device (SCD) *Heparin 5000 units SQ BID 3-4 Higher Order ONE of the following medications: *Heparin 5000 units SQ TID *Enoxaparin/Lovenox 40 mg SQ daily (WT < 150 kg, CrCl > 30 mL/min) *Enoxaparin/Lovenox 30 mg SQ daily (WT < 150 kg, CrCl > 10-29 mL/min) *Enoxaparin/Lovenox 30 mg SQ BID (WT < 150 kg, CrCl > 30 mL/min) AND/OR *Sequential Compression Device (SCD) 5 or more Highest Order ONE of the following medications: *Heparin 5000 units SQ TID (Preferred with Epidurals) *Enoxaparin/Lovenox 40 mg SQ daily (WT < 150 kg, CrCl > 30 mL/min) *Enoxaparin/Lovenox 30 mg SQ daily (WT < 150 kg, CrCl > 10-29 mL/min) *Enoxaparin/Lovenox 30 mg SQ BID (WT < 150 kg, CrCl > 30 mL/min) AND *Sequential Compression Device (SCD) Assessment and Plan Assessment and Plan A/P - chest pain with minimal elevation of troponin will continue with plavix,statin, imdur and coreg. will trend the cardiac enzymes. of note had a cardiac cath last march which showed mild CAD- being followed up by . -hypertension; resume home meds and will adjust the regimen as needed. -CKD- at his baseline- will monitor. -diabetes mellitus; resume long-acting insulin- accu-check with SSI -history of DVT; resume Eliquis Discussed Condition With the ER physician and the patient. Problem Qualifiers (1) Chest pain: Qualified Codes: R07.9 - Chest pain, unspecified Debora Martinez MD Aug 19, 2017 16:52
[2017-08-19] MEDS: GABAPENTIN 400 MG CAP PO SCH (17:09)
[2017-08-19] MEDS: hydrALAZINE HCL 100 MG TAB PO SCH (17:14)
[2017-08-19] MEDS: INSULIN ASPART SUPPLEMENTAL SCALE SQ SCH ×2 (17:14→22:05)
[2017-08-19] MEDS ORDERED: INSULIN GLARGINE 1,000 UNITS/10 ML VIAL SQ SCH (21:00)
[2017-08-19] MEDS: MORPHINE SULFATE 2 MG/ML INJ IV PUSH PRN (21:34)
[2017-08-19] MEDS: APIXABAN 5 MG TABLET PO SCH (21:35)
[2017-08-19] MEDS: NIFEdipine 60 MG SUSTAINED RELEASE TAB PO SCH (21:35)
[2017-08-19] MEDS: CARVEDILOL 12.5 MG TAB PO SCH (21:35)
[2017-08-19] MEDS: INSULIN DETEMIR 100 UNITS/ML VIAL SQ SCH (21:45)
[2017-08-20] MEDS: hydrALAZINE HCL 100 MG TAB PO SCH ×2 (01:25→08:32)
[2017-08-20] MEDS: MORPHINE SULFATE 2 MG/ML INJ IV PUSH PRN ×2 (01:26→06:07)
[2017-08-20 02:15] VITALS: PULSE 66
[2017-08-20] MEDS ORDERED: INSULIN ASPART 1,000 UNITS/10 ML VIAL SQ ONE (02:15)
[2017-08-20 04:21] VITALS: BP 154/72; PULSE 57; RESP 17; TEMP 98.3; O2SAT 96
[2017-08-20] MEDS ORDERED: ISOSORBIDE MONONITRATE 30 MG TAB PO SCH (07:00)
[2017-08-20 07:08] VITALS: BP 182/81; PULSE 59; RESP 18; TEMP 97.5; O2SAT 94
[2017-08-20] MEDS: INSULIN ASPART SUPPLEMENTAL SCALE SQ SCH (08:31)
[2017-08-20] MEDS: APIXABAN 5 MG TABLET PO SCH (08:31)
[2017-08-20] MEDS: INSULIN DETEMIR 100 UNITS/ML VIAL SQ SCH (08:31)
[2017-08-20] MEDS: CARVEDILOL 12.5 MG TAB PO SCH (08:32)
[2017-08-20] MEDS: GABAPENTIN 400 MG CAP PO SCH (08:32)
[2017-08-20] MEDS: NIFEdipine 60 MG SUSTAINED RELEASE TAB PO SCH (08:34)
[2017-08-20] MEDS ORDERED: ROTIGOTINE TOPICAL SCH (09:00)
[2017-08-20] MEDS ORDERED: ATORVASTATIN 80 MG TAB PO SCH (09:00)
[2017-08-20] MEDS ORDERED: DOXAZOSIN MESYLATE 2 MG TAB PO SCH (09:00)
[2017-08-20] MEDS ORDERED: EZETIMIBE 10 MG TAB PO SCH (09:00)
[2017-08-20] MEDS ORDERED: FUROSEMIDE 20 MG TAB PO SCH (09:00)
[2017-08-20] MEDS ORDERED: CLOPIDOGREL 75 MG TAB PO SCH (09:00)
[2017-08-20] MEDS ORDERED: LOSARTAN 50 MG TAB PO SCH (09:00)
--- NOTE | 2017-08-20 09:55 | HHI.PR ---
Subjective Remarks Follow-up visit for chest pain, left upper arm pain. Patient seen and examined today sitting in bed. at the bedside. Patient states that chest pain has improved. States he missed his appointment last month Dr. Brooks's office. Complains of left upper arm pain. States that he has the left upper arm pain for a while and he is given Norflex injection by at the pain management office however he is unable to inject himself that he needs to go to his primary care office to do it. His primary care office declines injection as they have found him to go to the hospital every time he took injection according to patient. Patient states that he goes to the hospital because he is unable to inject and he is in a lot of pain. He has not taken the Norflex injection for about 2 months. States that he will need to follow-up and outpatient he was just wondering if we can continue the Norflex. Discuss and explain extensive patient can start him on any pain medication that he already has. He needs to follow up with an outpatient pain management doctor. Patient verbalized understanding. Complaints of of constipation. Otherwise, no shortness of breath or dyspnea. Denies fevers, chills, nausea, vomiting, diarrhea. No chest pain, palpitations, headaches, dizziness. Objective Vitals Vital Signs Date Time Temp Pulse Resp B/P (MAP) Pulse Ox O2 Delivery O2 Flow Rate FiO2 08/20/17 07:08 97.5 59 18 182/81 (114) 94 08/20/17 04:21 98.3 57 17 154/72 (99) 96 08/20/17 02:15 66 08/19/17 23:49 98.7 64 17 166/77 (106) 96 08/19/17 21:17 97 Nasal Cannula 2.00 08/19/17 21:11 98.1 63 16 161/84 (109) 96 08/19/17 17:00 70 16 156/83 (107) 97 Nasal Cannula 2.00 08/19/17 16:00 59 16 182/83 (116) 97 08/19/17 15:00 62 18 159/77 (104) 96 Nasal Cannula 2.00 08/19/17 13:54 72 22 169/77 (107) 98 08/19/17 13:50 Room Air 08/19/17 13:42 98.8 64 16 167/75 (105) 96 Result Diagram: 08/19/17 1355 08/19/17 1355 Imaging Last Impressions Chest X-Ray 08/19/17 1421 Signed Impressions: Service Date/Time: Saturday, August 19, 2017 14:42 - CONCLUSION: No acute cardiopulmonary disease. Akanksha Holley MD Objective Remarks GENERAL: This is a well-nourished, well-developed patient, in no apparent distress. SKIN: Warm and dry. HEENT: Normocephalic. Pupils equal round and reactive. Nose without bleeding. Airway patent. NECK: Trachea midline. CARDIOVASCULAR: Regular rate and rhythm without murmurs, gallops, or rubs. Nontender to palpate. RESPIRATORY: Clear to auscultation. Breath sounds equal bilaterally. No wheezes , rales, or rhonchi. GASTROINTESTINAL: Abdomen soft, non-tender, nondistended. Bowel Sounds normoactive x4. MUSCULOSKELETAL: Extremities without clubbing, cyanosis, or edema. NEUROLOGICAL: Awake and alert. Oriented to time, place, person. No focal neuro deficit. Moves all extremities. Normal speech. A/P Problem List: (1) Chest pain ICD Code: R07.9 - Chest pain Status: Acute Assessment and Plan Patient is a 62 y/o male with history of CAD, hypertension, diabetes, CKD, PVD and DVT presented to ER with chest pain. Chest pain, rule out ACS - Came in yesterday with chest pain and minimal troponin elevation. Compared to previous troponin to the same level. - Patient had cardiac catheter last March which showed mild CAD - Chest x-ray showed no acute cardiopulmonary disease - Trop 0.08 -->0.06 --> 0.07 - Continue with plavix,statin, imdur and coreg - Follow-up with Dr. Borges outpatient. Patient had missed his appointment with Dr. Borges last month. - Denies any chest pain this morning. CKD - Reviewed [employer] at baseline - Avoid nephrotoxins Left upper extremity pain, chronic - This is probably the main cause of patient's complaining of chest pain - States he had morphine and it only provided him with short time relief. Discussed extensively patient to morphine will provide him with short-term relief and it was given for him for his chest pain and not for his left upper arm pain. - Patient has been taking Norflex, Flexeril, Lortabs at home he is being followed by [facility]. - Discuss with patient extensively did we are not able to give him narcotics in the hospital he needs to follow-up with his pain management doctor. Verbalized understanding. Diabetes, hyperglycemia - Restart home medication once discharged. He was started on Levemir but patient is on Lantus at home. Beneficial to start Lantus insulin to Levemir. - Diabetic diet encouraged. Noncompliant History of DVT - Resume Eliquis Constipation - Milk of magnesia. Bowel regimen. Discharge patient to home Condition on discharge: Improved Diabetic Diet and Heart Healthy as tolerated Ad Edilia activity Rx written: Continue home medications as ordered Follow-up with primary care physician Follow-up with cardiology Dr. Brooks Follow-up with pain management Dr. Haddad Discharge Planning Plan to discharge home today Problem Qualifiers (1) Chest pain: Qualified Codes: R07.9 - Chest pain, unspecified Brit Beavers Aug 20, 2017 09:55
[2017-08-20] MEDS ORDERED: MAGNESIUM HYDROXIDE SUSP 30 ML CUP PO ONE (10:00)
--- NOTE | 2017-08-20 10:11 | HHI.DCPOC ---
Discharge Care Plan Diagnosis: (1) History of DVT (deep vein thrombosis) (2) DM (diabetes mellitus) (3) Chest pain (4) Hypertension Your Health Problems Are: Bleeding Tendency Chronic Pain Goals to Promote Your Health * To prevent worsening of your condition and complications * To maintain your health at the optimal level Directions to Meet Your Goals Take your medications as prescribed Follow your dietary instruction Follow activity as directed Keep your appointments as scheduled Take your immunizations and boosters as scheduled If your symptoms worsen call your PCP, if no PCP go to Urgent Care Center or Emergency Room Smoking is Dangerous to Your Health. Avoid second hand smoke Call the 24-hour hour crisis hotline for domestic abuse at Brit Beavers Aug 20, 2017 10:11
--- NOTE | 2017-08-20 12:27 | EKG ---
Date Performed: 08/19/2017 Time Performed: 13:52:22 PTAGE: 62 years EKG: Baseline artifact does not allow interpretation of leads II and III. Other 10 leads appears to be within normal limits. Compared to previous tracing, no change in leads that are interpreted. C annot interpret leads II and III. Recommend repeat tracing for further clarification. NORMAL ECG PREVIOUS TRACING : 08/01/2017 10.22 DOCTOR: Jesu Hernandez Interpretating Date/Time 08/20/2017 12:25:54
== END 2017-08-20 11:33 | disposition home or self-care (01) ==
LOC: NEPE 13:31 → NEDA 16:17 → NEPHCDU 17:35
PROVIDERS: ADMIT Family Medicine; ATTEND Family Medicine
DX: R07.89 Other chest pain (principal); M79.622 Pain in left upper arm; K59.00 Constipation, unspecified; G89.29 Other chronic pain; E11.65 Type 2 diabetes mellitus with hyperglycemia; I25.10 Atherosclerotic heart disease of native coronary artery without angina pectoris; I12.9 Hypertensive chronic kidney disease with stage 1 through stage 4 chronic kidney disease, or unspecified chronic kidney disease; E11.22 Type 2 diabetes mellitus with diabetic chronic kidney disease; E11.51 Type 2 diabetes mellitus with diabetic peripheral angiopathy without gangrene; N18.9 Chronic kidney disease, unspecified; E78.00 Pure hypercholesterolemia, unspecified; E03.9 Hypothyroidism, unspecified; G47.30 Sleep apnea, unspecified; D57.3 Sickle-cell trait; Z86.718 Personal history of other venous thrombosis and embolism; Z79.01 Long term (current) use of anticoagulants; Z79.02 Long term (current) use of antithrombotics/antiplatelets; Z95.5 Presence of coronary angioplasty implant and graft; Z96.642 Presence of left artificial hip joint; Z79.899 Other long term (current) drug therapy; Z86.73 Personal history of transient ischemic attack (TIA), and cerebral infarction without residual deficits
CPT/HCPCS: 71045; 80048; 82948; 83735; 84484; 85025; 85610; 85730; 93005; 96372; 96374; 96375; 96376; 99285; G0378; J1815; J2270; J2405

== ENCOUNTER 2017-10-11 22:26 | Observation (INO) | payer OTHER, MEDICAID ==
[~2017-10-11] VITALS: Ht 175.3 cm; Wt 115.0 kg
[~2017-10-11 22:26] MED LIST changes: -CYCL10TA PO; +FURO1TAB62 PO; -GABA100C4 PO; +GABA800T PO; -KLON2TAB PO; -TORS10TA2 PO
[2017-10-11 23:44] VITALS: BP 203/94; PULSE 72; RESP 20; TEMP 98.4; O2SAT 95
[2017-10-12] VITALS (10 sets, daily range): BP systolic 153–190; BP diastolic 68–94; PULSE 62–78; RESP 14–20; TEMP 97.9; O2SAT 91–99
[2017-10-12 00:15] LABS: AUTOMATED NEUTROPHIL # 3.7 TH/MM3 (1.8-7.7); BASOPHIL % 0.5 % (0.0-2.0); EOSINOPHIL # 0.2 TH/MM3 (0-0.4); HEMATOCRIT 35.2 % (39.0-51.0); HEMOGLOBIN 11.7 GM/DL (13.0-17.0); LYMPH % 27.6 % (9.0-44.0); LYMPHOCYTE # 1.7 TH/MM3 (1.0-4.8); MEAN CELL VOLUME 74.7 FL (80.0-100.0); MEAN CORPUSCULAR HEMOGLOBIN 24.9 PG (27.0-34.0); MEAN CORPUSCULAR HGB CONC 33.3 % (32.0-36.0); MEAN PLATELET VOLUME 8.2 FL (7.0-11.0); MONO % 8.3 % (0.0-8.0); MONOCYTE # 0.5 TH/MM3 (0-0.9); NEUT % 60.6 % (16.0-70.0); PLATELET COUNT 175 TH/MM3 (150-450); RED BLOOD COUNT 4.72 MIL/MM3 (4.50-5.90); RED CELL DISTRIBUTION WIDTH 18.1 % (11.6-17.2); WHITE BLOOD COUNT 6.1 TH/MM3 (4.0-11.0)
--- NOTE | 2017-10-12 00:22 | PD ---
HPI Chief Complaint: Chest Pain Time Seen by Provider: 00:15 Travel History International Travel<30 days: No Contact w/Intl Traveler<30days: No Traveled to known affect area: No History of Present Illness HPI 62-year-old male presents to the emergency department by private transportation in the care of his family for evaluation of retrosternal chest discomfort radiating to the neck left shoulder and left arm. Patient denies jaw pain. Patient denies mid scapular pain. Patient denies abdominal pain. Patient denies nausea vomiting sweats or shortness of breath. Onset of symptoms at 10 PM at rest. Patient has known coronary vessel disease with stents 5 in the past. Patient also has history of peripheral vascular disease with previous aorto-bifemoral bypass. Patient denies any lower extremity pain or claudication. Patient states he took 1 sublingual nitroglycerin without symptom relief and took 162 mg of aspirin prior to arrival to the emergency department. Patient states she has been sitting in the waiting room for approximately an hour and a half. Patient states that pain is 8/10 in intensity and is unchanged from onset. Patient denies any recent long distance travel protracted bedrest or surgical procedure. Patient has history of hypertension dyslipidemia and diabetes. No report of tobacco use. No prior myocardial infarction reportedly. 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 Parker in the remote past regarding his peripheral vascular disease and primary care provider is Dr. Sandoval. Patient denies any pleuritic chest pain. Patient denies any history of PE. Patient is on Eliquis for history of DVT. Abdominal aortic aneurysm repaired at [facility] in 2012. [facility] Past Medical History Narrative Medical Eliquis anticoagulation CAD hypertension dyslipidemia diabetes DVT abdominal aortic aneurysm repair [facility] 2012 cardiac stent cholecystectomy; no tobacco use ; nursing notes reviewed Hx Anticoagulant Therapy: Yes (ELOQUIS) AAA: Yes (JUL 2011/ ) Anemia: Yes Arthritis: No Asthma: No Autoimmune Disease: No Blood Disorders: Yes (SICKLE CELL TRAIT) Anxiety: No Depression: No Heart Rhythm Problems: Yes Cancer: No Cardiac Catheterization: Yes (2016) Cardiovascular Problems: Yes High Cholesterol: Yes Chemotherapy: No Chest Pain: Yes Congestive Heart Failure: No COPD: No Cerebrovascular Accident: Yes Coronary Artery Disease: Yes Diabetes: Yes Patient Takes Glucophage: No Diminished Hearing: No Deep Vein Thrombosis: Yes (LT LEG) Endocrine: Yes GERD: No Glaucoma: No Genitourinary: No Headaches: No Hepatitis: No Hiatal Hernia: No Heparin Induced Thrombocytopen: No Hypertension: Yes Immune Disorder: No Implanted Vascular Access Dvce: Yes (RIGHT INSULIN PUMP removed) Kidney Stones: No Musculoskeletal: No Neurologic: No Psychiatric: No Reproductive: No Respiratory: Yes Immunizations Current: Yes Migraines: No Myocardial Infarction: No Pancreatitis: Yes Radiation Therapy: No Renal Failure: No Seizures: No Sickle Cell Disease: Yes (TRAIT) Sleep Apnea: Yes Thyroid Disease: Yes Ulcer: No Tetanus Vaccination: < 5 Years Influenza Vaccination: No PNEUMOCCOCAL Vaccine (Year): 3 Past Surgical History Abdominal Aneurysm Repair: Yes (2012) Abdominal Surgery: Yes AICD: No Appendectomy: No Arteriovenous Shunt: No Body Medical Devices: STENTS Cardiac Surgery: Yes (stentX5) Cholecystectomy: Yes Coronary Artery Bypass Graft: No Coronary Stent: Yes (2009 X 2, 2010 X2) Ear Surgery: No Endocrine Surgery: No Eye Surgery: No Genitourinary Surgery: No Gynecologic Surgery: No Insulin Pump: Yes (removed) Joint Replacement: Yes (LEFT HIP 1999) Neurologic Surgery: No Oral Surgery: No Pacemaker: No Thoracic Surgery: No Other Surgery: Yes (GB REMOVED) Social History Alcohol Use: No Tobacco Use: No (QUIT 2005) Substance Use: No Allergies-Medications (Allergen,Severity, Reaction): Coded Allergies: benazepril (Verified Allergy, Severe, ANGIOEDEMA, 10/11/17) captopril (Verified Allergy, Severe, ANGIOEDEMA, 10/11/17) enalaprilat (Verified Allergy, Severe, 10/11/17) ANGIOEDEMA fosinopril (Verified Allergy, Severe, ANGIOEDEMA, 10/11/17) lisinopril (Verified Allergy, Severe, ANGIOEDEMA, 10/11/17) quinapril (Verified Allergy, Severe, ANGIOEDEMA, 10/11/17) hydromorphone (Verified Adverse Reaction, Intermediate, ITCHING, 10/11/17) Reported Meds & Prescriptions Reported Meds & Active Scripts Active Nifedipine ER 24 HR (Nifedipine) 60 Mg Tab 60 Mg PO Q12HR Isosorbide Mononitrate ER (Isosorbide Mononitrate) 60 Mg Tab 90 Mg PO DAILY@07 Hydralazine (Hydralazine HCl) 100 Mg Tab 100 Mg PO Q8H Cardura (Doxazosin Mesylate) 2 Mg Tab 2 Mg PO DAILY Cozaar (Losartan Potassium) 50 Mg Tab 100 Mg PO DAILY Plavix (Clopidogrel Bisulfate) 75 Mg Tab 75 Mg PO DAILY Reported Lasix (Furosemide) 20 Mg Tab 20 Mg PO DAILY Lantus Inj (Insulin Glargine) 1,000 Unit/10 Ml Vial 84 Units SQ BID Gabapentin 800 Mg Tab 800 Mg PO TID Crestor (Rosuvastatin Calcium) 40 Mg Tab 40 Mg PO DAILY Eliquis (Apixaban) 5 Mg Tab 5 Mg PO BID Zetia (Ezetimibe) 10 Mg Tab 10 Mg PO DAILY Neupro Patch 24 HR (Rotigotine Patch 24 HR) 3 Mg/24 Hr Patch 3 Mg T-DERMAL DAILY Ambien (Zolpidem Tartrate) 10 Mg Tab 10 Mg PO HS PRN Novolin R Inj (Insulin Human Regular) 1,000 Unit/10 Ml Vial 0 SQ TIDACHS Sliding Scale As Directed. Nitroglycerin SL (Nitroglycerin) 0.4 Mg Subl 0.4 Mg SL DIRECTED PRN ONE TABLET UNDER THE TONGUE NEEDED FOR CHEST PAIN, MAY REPEAT EVERY FIVE MINUTES FOR A TOTAL OF 3 DOSES OR CALL 911 IF NO RELIEF Coreg (Carvedilol) 25 Mg Tab 25 Mg PO BID Review of Systems Except as stated in HPI: all other systems reviewed are Neg General / Constitutional: No: Fever, Chills HENT: No: Congestion Cardiovascular: Positive: Chest Pain or Discomfort Respiratory: No: Shortness of Breath Gastrointestinal: No: Nausea, Vomiting, Abdominal Pain Genitourinary: No: Flank Pain Musculoskeletal: No: Myalgias, Arthralgias, Pain Skin: No Rash Neurologic: No: Weakness, Dizziness, Syncope Psychiatric: No: Anxiety Hematologic/Lymphatic: No: Easy Bruising Physical Exam Narrative GENERAL: Well-developed well-nourished male no acute distress no respiratory distress; GCS 15 SKIN: Warm and dry. HEAD: Normocephalic. EYES: No scleral icterus. No injection or drainage. NECK: Supple, trachea midline. No JVD or lymphadenopathy. CARDIOVASCULAR: Regular rate and rhythm without murmurs, gallops, or rubs. RESPIRATORY: Breath sounds equal bilaterally. No accessory muscle use. GASTROINTESTINAL: Abdomen soft, non-tender, nondistended. MUSCULOSKELETAL: No cyanosis, or edema. BACK: Nontender without obvious deformity. No CVA tenderness. Data Data Last Documented VS Vital Signs Date Time Temp Pulse Resp B/P (MAP) Pulse Ox O2 Delivery O2 Flow Rate FiO2 10/12/17 00:14 70 20 187/89 (121) 98 Room Air 10/11/17 23:44 98.4 Orders Orders Electrocardiogram (10/11/17 23:48) Complete Blood Count With Diff (10/11/17 23:48) Basic Metabolic Panel (Bmp) (10/11/17 23:48) Ckmb (Isoenzyme) Profile (10/11/17 23:48) Troponin I (10/11/17 23:48) Iv Access Insert/Monitor (10/11/17:48) Ecg Monitoring (10/11/17:48) Oxygen Administration (10/11/17:48) Oximetry (10/11/17:48) Chest, Single Ap (10/11/17 23:48) Magnesium (Mg) (10/12/17 00:15) Prothrombin Time / Inr (Pt) (10/12/17 00:15) Act Partial Throm Time (Ptt) (10/12/17 00:15) Bilateral Bp Monitoring (10/12/17 00:15) Nitroglycerin Sl (Nitrostat Sl) (10/12/17 00:15) Sodium Chlor 0.9% 1000 Ml Inj (Ns 1000 M (10/12/17 00:15) CKMB (10/12/17 00:02) CKMB% (10/12/17 00:02) Ondansetron Inj (Zofran Inj) (10/12/17 01:15) Blood Glucose (10/12/17 01:15) Labs Laboratory Tests Test 10/12/17 00:02 10/12/17 00:35 White Blood Count 6.1 TH/MM3 Red Blood Count 4.72 MIL/MM3 Hemoglobin 11.7 GM/DL Hematocrit 35.2 % Mean Corpuscular Volume 74.7 FL Mean Corpuscular Hemoglobin 24.9 PG Mean Corpuscular Hemoglobin Concent 33.3 % Red Cell Distribution Width 18.1 % Platelet Count 175 TH/MM3 Mean Platelet Volume 8.2 FL Neutrophils (%) (Auto) 60.6 % Lymphocytes (%) (Auto) 27.6 % Monocytes (%) (Auto) 8.3 % Eosinophils (%) (Auto) 3.0 % Basophils (%) (Auto) 0.5 % Neutrophils # (Auto) 3.7 TH/MM3 Lymphocytes # (Auto) 1.7 TH/MM3 Monocytes # (Auto) 0.5 TH/MM3 Eosinophils # (Auto) 0.2 TH/MM3 Basophils # (Auto) 0.0 TH/MM3 CBC Comment AUTO DIFF Differential Comment AUTO DIFF CONFIRMED Platelet Estimate NORMAL Platelet Morphology Comment NORMAL Basophilic Stippling FAINT Acanthocytes OCC Keratocytes OCC Blood Urea Nitrogen 31 MG/DL Creatinine 2.10 MG/DL Random Glucose 103 MG/DL Calcium Level 9.1 MG/DL Sodium Level 143 MEQ/L Potassium Level 3.4 MEQ/L Chloride Level 109 MEQ/L Carbon Dioxide Level 27.2 MEQ/L Anion Gap 7 MEQ/L Estimat Glomerular Filtration Rate 39 ML/MIN Total Creatine Kinase 310 U/L Creatine Kinase MB 2.4 NG/ML Creatine Kinase MB % 0.8 % Troponin I 0.06 NG/ML Prothrombin Time 10.4 SEC Prothromb Time International Ratio 1.0 RATIO Activated Partial Thromboplast Time 25.4 SEC Magnesium Level 2.3 MG/DL [facility] Medical Decision Making Medical Screen Exam Complete: Yes Emergency Medical Condition: Yes Medical Record Reviewed: Yes Interpretation(s) EKG: Normal sinus rhythm no acute ST elevation injury pattern or ectopy noted Differential Diagnosis Chest pain, ACS, myocardial infarction, thoracic aortic aneurysm, aortic dissection, musculoskeletal pain, PE, gastritis, peptic ulcer disease, choledocholithiasis, pancreatitis Narrative Course 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 Physician Communication Physician Communication discussed with Dr Molina Diagnosis Primary Impression: Chest pain Additional Impressions: HTN (hypertension) Chronic renal insufficiency DM (diabetes mellitus) Admitting Information Admitting Physician Requests: Admit Louann Stewart MD Oct 12, 2017 00:22
[2017-10-12] MEDS: NITROGLYCERIN 0.4 MG SL 25 TABS/BTL SL SCH ×2 (00:25→00:36)
[2017-10-12 00:44] LABS: BICARBONATE 27.2 MEQ/L (21.0-32.0); CALCIUM 9.1 MG/DL (8.5-10.1); CREATININE 2.1 MG/DL (0.60-1.30)
[2017-10-12 00:48] LABS: TROPONIN I 0.06 NG/ML (0.02-0.05)
[2017-10-12 00:53] LABS: ACANTHOCYTES OCC (NORMAL)
[2017-10-12 00:54] LABS: KERATOCYTES OCC (NORMAL)
[2017-10-12] MEDS: SODIUM CHLOR 0.9% 1000 ML INJ 1,000 ML IV SCH ×2 (00:58→12:58)
[2017-10-12 01:01] LABS: PROTHROMBIN TIME - PATIENT 10.4 SEC (9.8-11.6)
--- NOTE | 2017-10-12 01:02 | RADRPT ---
EXAM DATE/TIME: 10/12/2017 00:34 [place] COMPARISON: CHEST SINGLE AP, August 19, 2017, 14:42. INDICATIONS : Chest pain. MEDICAL HISTORY : Cerebrovascular disease. Aneurysm, abdominal. Hypertension. CAD. Pancreatitis SURGICAL HISTORY : Abdominal aortic aneurysm repair. Coronary artery stent. ENCOUNTER: Initial ACUITY: 1 day PAIN SCORE: 5/10 LOCATION: Bilateral chest FINDINGS: A single view of the chest demonstrates the lungs to be symmetrically aerated without evidence of mas s, infiltrate or effusion. Cardiomegaly. The cardiomediastinal contours are unremarkable. Osseous st ructures are intact. CONCLUSION: Cardiomegaly. Ramsey Munguia MD on October 12, 2017 at 1:00 Board Certified Radiologist. This report was verified electronically.
[2017-10-12] MEDS ORDERED: ONDANSETRON HCL 4 MG/2 ML VIAL IV PUSH ONE (01:15)
[2017-10-12] MEDS ORDERED: NALOXONE HCL 0.4 MG/ML AMP IV PUSH PRN (03:00)
[2017-10-12] MEDS ORDERED: ACETAMINOPHEN 325 MG TAB PO PRN (03:00)
[2017-10-12] MEDS ORDERED: SODIUM CHLORIDE 0.9% FLUSH 10 ML FLUSH IV FLUSH PRN (03:00)
[2017-10-12] MEDS ORDERED: NITROGLYCERIN 0.4 MG SL 25 TABS/BTL SL PRN (03:00)
[2017-10-12] MEDS ORDERED: ONDANSETRON HCL 4 MG/2 ML VIAL IVP PRN (03:00)
[2017-10-12] MEDS ORDERED: POTASSIUM CHLORIDE 10 MEQ CONTROLLED RELEASE TAB PO ONE (03:00)
[2017-10-12] MEDS ORDERED: LANTUS2P SQ ×2 (03:00)
[2017-10-12] MEDS ORDERED: MORPHINE SULFATE 2 MG/ML INJ IV PUSH ONE (03:00)
[2017-10-12 03:56] LABS: TROPONIN I 0.06 NG/ML (0.02-0.05)
[2017-10-12] MEDS ORDERED: GLUCAGON 1 MG/ML VIAL OTHER PRN (04:15)
[2017-10-12] MEDS ORDERED: DEXTROSE 50% IN WATER 50 ML VIAL(D50) IV PUSH PRN (04:15)
--- NOTE | 2017-10-12 04:23 | HHI.HP ---
[facility] Service [facility] Primary Care Physician Non-Staff Admission Diagnosis chest pain w/ hx CAD; HTN;CRI Diagnoses: Travel History International Travel<30 Days: No Contact w/Intl Traveler <30 Da: No Traveled to Known Affected Are: No History of Present Illness 62-year-old male with a past medical history significant for CAD, hypertension, diabetes, CKD, PVD and history of DVT, anticoagulated on Eliquis, presents to the emergency department for evaluation of chest pain. The patient reports he has left-sided chest pain that radiates up his neck and down his left arm that began around 10 PM yesterday evening. His cable layer is Dr. Brooks. He denies any shortness of breath or diaphoresis. No nausea/vomiting/diarrhea. No abdominal pain. No fever/chills. He has no other complaints at this time. Past Family Social History Allergies: Coded Allergies: benazepril (Verified Allergy, Severe, ANGIOEDEMA, 10/11/17) captopril (Verified Allergy, Severe, ANGIOEDEMA, 10/11/17) enalaprilat (Verified Allergy, Severe, 10/11/17) ANGIOEDEMA fosinopril (Verified Allergy, Severe, ANGIOEDEMA, 10/11/17) lisinopril (Verified Allergy, Severe, ANGIOEDEMA, 10/11/17) quinapril (Verified Allergy, Severe, ANGIOEDEMA, 10/11/17) hydromorphone (Verified Adverse Reaction, Intermediate, ITCHING, 10/11/17) Physical Exam Vital Signs Vital Signs Date Time Temp Pulse Resp B/P (MAP) Pulse Ox O2 Delivery O2 Flow Rate FiO2 10/12/17 00:14 70 20 187/89 (121) 98 Room Air 10/12/17 00:14 70 10/11/17 23:44 98.4 72 20 203/94 (130) 95 Physical Exam GENERAL: This is a well-nourished, well-developed patient, in no apparent distress. SKIN: No rashes, ecchymoses or lesions. Cool and dry. HEAD: Atraumatic. Normocephalic. No temporal or scalp tenderness. EYES: Pupils equal round and reactive. Extraocular motions intact. No scleral icterus. No injection or drainage. ENT: Nose without bleeding, purulent drainage or septal hematoma. Throat without erythema, tonsillar hypertrophy or exudate. Uvula midline. Airway patent. NECK: Trachea midline. No JVD or lymphadenopathy. Supple, nontender, no meningeal signs. CARDIOVASCULAR: Regular rate and rhythm without murmurs, gallops, or rubs. RESPIRATORY: Clear to auscultation. Breath sounds equal bilaterally. No wheezes , rales, or rhonchi. GASTROINTESTINAL: Abdomen soft, non-tender, nondistended. No hepato-splenomegaly , or palpable masses. No guarding. MUSCULOSKELETAL: Extremities without clubbing, cyanosis, or edema. No joint tenderness, effusion, or edema noted. No calf tenderness. Negative Homans sign bilaterally. NEUROLOGICAL: Awake and alert. Cranial nerves II through XII intact. Motor and sensory grossly within normal limits. Five out of 5 muscle strength in all muscle groups. Normal speech. Laboratory Laboratory Tests Test 10/12/17 00:02 10/12/17 00:35 10/12/17 03:10 White Blood Count 6.1 Red Blood Count 4.72 Hemoglobin 11.7 Hematocrit 35.2 Mean Corpuscular Volume 74.7 Mean Corpuscular Hemoglobin 24.9 Mean Corpuscular Hemoglobin Concent 33.3 Red Cell Distribution Width 18.1 Platelet Count 175 Mean Platelet Volume 8.2 Neutrophils (%) (Auto) 60.6 Lymphocytes (%) (Auto) 27.6 Monocytes (%) (Auto) 8.3 Eosinophils (%) (Auto) 3.0 Basophils (%) (Auto) 0.5 Neutrophils # (Auto) 3.7 Lymphocytes # (Auto) 1.7 Monocytes # (Auto) 0.5 Eosinophils # (Auto) 0.2 Basophils # (Auto) 0.0 CBC Comment AUTO DIFF Differential Comment AUTO DIFF CONFIRMED Platelet Estimate NORMAL Platelet Morphology Comment NORMAL Basophilic Stippling FAINT Acanthocytes OCC Keratocytes OCC Blood Urea Nitrogen 31 Creatinine 2.10 Random Glucose 103 Calcium Level 9.1 Sodium Level 143 Potassium Level 3.4 Chloride Level 109 Carbon Dioxide Level 27.2 Anion Gap 7 Estimat Glomerular Filtration Rate 39 Total Creatine Kinase 310 276 Creatine Kinase MB 2.4 Creatine Kinase MB % 0.8 Troponin I 0.06 0.06 Prothrombin Time 10.4 Prothromb Time International Ratio 1.0 Activated Partial Thromboplast Time 25.4 Magnesium Level 2.3 Result Diagram: 10/12/17 0002 10/12/17 0002 Herbrinsteven VTE Risk Assessment Caprini VTE Risk Assessment: Mod/High Risk (score >= 2) Caprini Risk Assessment Model Point Value = 1 Point Value = 2 Point Value = 3 Point Value = 5 Age 41-60 Minor surgery BMI > 25 kg/m2 Swollen legs Varicose veins or History of unexplained or recurrent spontaneous Oral contraceptives or hormone replacement Sepsis (< 1 month) Serious lung disease, including pneumonia (< 1 month) Abnormal pulmonary function Acute myocardial infarction Congestive heart failure (< 1 month) History of inflammatory bowel disease Medical patient at bed rest Age 61-74 Arthroscopic surgery Major open surgery (> 45 min) Laparoscopic surgery (> 45 min) Malignancy Confined to bed (> 72 hours) Immobilizing plaster cast Central venous access Age >= 75 History of VTE Family history of VTE Factor V Leiden Prothrombin [id number] Lupus anticoagulant Anticardiolipin antibodies Elevated serum homocysteine Heparin-induced thrombocytopenia Other congenital or acquired thrombophilia Stroke (< 1 month) Elective arthroplasty Hip, pelvis, or leg fracture Acute spinal cord injury (< 1 month) Prophylaxis Regimen Total Risk Factor Score Risk Level Prophylaxis Regimen 0-1 Low Early ambulation 2 Moderate Order ONE of the following: *Sequential Compression Device (SCD) *Heparin 5000 units SQ BID 3-4 Higher Order ONE of the following medications: *Heparin 5000 units SQ TID *Enoxaparin/Lovenox 40 mg SQ daily (WT < 150 kg, CrCl > 30 mL/min) *Enoxaparin/Lovenox 30 mg SQ daily (WT < 150 kg, CrCl > 10-29 mL/min) *Enoxaparin/Lovenox 30 mg SQ BID (WT < 150 kg, CrCl > 30 mL/min) AND/OR *Sequential Compression Device (SCD) 5 or more Highest Order ONE of the following medications: *Heparin 5000 units SQ TID (Preferred with Epidurals) *Enoxaparin/Lovenox 40 mg SQ daily (WT < 150 kg, CrCl > 30 mL/min) *Enoxaparin/Lovenox 30 mg SQ daily (WT < 150 kg, CrCl > 10-29 mL/min) *Enoxaparin/Lovenox 30 mg SQ BID (WT < 150 kg, CrCl > 30 mL/min) AND *Sequential Compression Device (SCD) Assessment and Plan Assessment and Plan Assessment/plan: 1. Chest pain Patient underwent a stress test on 05/22/16 which was unremarkable Patient is status post cardiac catheterization on 03/31/17 which showed mild coronary artery disease with patent stents Troponin 0.06, this appears to be baseline for the patient EKG showed normal sinus rhythm with no acute ST segment elevations or depressions, personally reviewed ACS rule out pending; serial troponins/EKGs Morphine for pain Anticoagulated on Eliquis 2. CAD/hypertension/history of DVT/PVD Continue home medications 3. Diabetes mellitus Continue Lantus at half dosing as patient nothing by mouth Sliding scale insulin Monitor blood glucose 4. CKD Creatinine 2.10, baseline for the patient Monitor renal function FEN NPO Electrolytes: Status post by mouth repletion of potassium Eliquis NS at 84 cc/hr Aaliyah Molina MD Oct 12, 2017 04:23
[2017-10-12] MEDS ORDERED: POTASSIUM CHLORIDE 20 MEQ CONTROLLED RELEASE TAB PO ONE (04:30)
[2017-10-12] MEDS: hydrALAZINE HCL 100 MG TAB PO SCH ×2 (05:12→14:22)
[2017-10-12] MEDS: INSULIN ASPART SUPPLEMENTAL SCALE SQ SCH ×2 (08:00→14:23)
[2017-10-12] MEDS ORDERED: ATORVASTATIN 40 MG TAB PO SCH (09:00)
[2017-10-12] MEDS ORDERED: FUROSEMIDE 20 MG TAB PO SCH (09:00)
[2017-10-12] MEDS ORDERED: APIXABAN 5 MG TABLET PO SCH (09:00)
[2017-10-12] MEDS ORDERED: CARVEDILOL 12.5 MG TAB PO SCH (09:00)
[2017-10-12] MEDS ORDERED: LOSARTAN 50 MG TAB PO SCH (09:00)
[2017-10-12] MEDS ORDERED: NEUPRO TOPICAL SCH (09:00)
[2017-10-12] MEDS ORDERED: EZETIMIBE 10 MG TAB PO SCH (09:00)
[2017-10-12] MEDS ORDERED: INSULIN DETEMIR 100 UNITS/ML VIAL SQ SCH (09:00)
[2017-10-12] MEDS ORDERED: NIFEdipine 60 MG SUSTAINED RELEASE TAB PO SCH (09:00)
[2017-10-12] MEDS ORDERED: SODIUM CHLORIDE 0.9% FLUSH 10 ML FLUSH IV FLUSH SCH (09:00)
[2017-10-12] MEDS: GABAPENTIN 400 MG CAP PO SCH ×2 (09:24→14:22)
[2017-10-12 09:53] LABS: TROPONIN I 0.06 NG/ML (0.02-0.05)
--- NOTE | 2017-10-12 12:24 | EKG ---
Date Performed: 10/12/2017 Time Performed: 05:55:47 PTAGE: 62 years EKG: Sinus rhythm NORMAL ECG INTERPRETATION BASED ON A DEFAULT AGE OF 40 YEARS PREVIOUS TRACING : 10/11/2017 23.53 Since the previous tracing, no significant change not ed DOCTOR: Logan Hutson Interpretating Date/Time 10/12/2017 12:23:19
--- NOTE | 2017-10-12 12:24 | EKG ---
Date Performed: 10/11/2017 Time Performed: 23:53:07 PTAGE: 62 years EKG: Sinus rhythm NORMAL ECG PREVIOUS TRACING : 08/19/2017 13.52 Since the previous tracing, no significant change noted DOCTOR: Logan Hutson Interpretating Date/Time 10/12/2017 12:23:07
[2017-10-12 15:07] LABS: TROPONIN I 0.08 NG/ML (0.02-0.05)
--- NOTE | 2017-10-12 15:22 | MB ---
cc: Raz Faustin MD DATE: 10/12/2017 REASON FOR CONSULTATION: Chest pain. HISTORY OF PRESENT ILLNESS: The patient is a 62-year-old male, followed in our office by Dr. Sriram Borges, with a history of coronary artery disease, diabetes, hypertension, sleep apnea, sickle cell trait, peripheral vascular disease, and chronic pancreatitis, who presented to the hospital with chest pain. The patient has been seen in this hospital, probably over 100 times for chest pains. Last night at about 10:00 p.m., he developed a sharp left upper chest pain, which seemed to radiate to his left neck. There was no associated shortness of breath, nausea or diaphoresis. The chest pain has persisted in a constant fashion until today (3:00 p.m.). The patient did note some relief of the pain when he was given intravenous morphine. He denies pleurisy, dizziness, syncope, near syncope, palpitations, pedal edema, paroxysmal nocturnal dyspnea, fevers, and flu symptoms. He reports compliance with his medications. PAST MEDICAL HISTORY: 1. Coronary artery disease, status post 3.0 mm bare-metal stent of the distal right coronary by Dr. Ti Duke 05/2010, status post 3.0 mm drug-eluting stent, unclear type, by Dr. Jared Holland 07/28/2016 of the mid right coronary artery. His last heart catheterization was 03/[address] Dilip Soriano showing patent right coronary artery stents and minimal disease in the left coronary system. 2. Chronic deep venous insufficiency. 3. Diabetes. 4. Hypertension. 5. Hyperlipidemia. 6. Sleep apnea. 7. Sickle cell trait. 8. Peripheral vascular disease, status post left femoral popliteal bypass 12/2009, status post abdominal aortic aneurysm endovascular repair 07/2011. 9. Chronic pancreatitis. 10. History of left lower extremity deep venous thrombosis. CARDIAC MEDICATIONS AT HOME: 1. Nifedipine ER 60 mg q.12 hours. 2. Isosorbide mononitrate 90 mg daily. 3. Hydralazine 100 mg q.8 hours. 4. Cardura 2 mg daily. 5. Cozaar 100 mg daily. 6. Plavix 75 mg daily. 7. Furosemide 20 mg daily. 8. Crestor 40 mg at bedtime. 9. Apixaban 5 mg b.i.d. 10. Zetia 10 mg daily. 11. Coreg 25 mg b.i.d. ALLERGIES: DAWIT INHIBITORS AND HYDROMORPHONE. FAMILY HISTORY: Noncontributory. SOCIAL HISTORY: The patient is a former smoker. There is no history of alcohol abuse. REVIEW OF SYSTEMS: As in history of present illness, otherwise negative or noncontributory. He also denies headache, abdominal pain, melena, dyspepsia, diarrhea, bright red blood per rectum, cough, and wheezing. PHYSICAL EXAMINATION: VITAL SIGNS: His blood pressure 168/91 with a pulse of 63, respirations 16. GENERAL: He is a well-developed, well-nourished male in no acute distress. NECK: Jugular venous pressure is hard to assess. It appears to be normal. Carotid pulses are 2+ bilaterally and without bruits. CHEST: Reveals unlabored respiratory effort with clear lungs rich. CARDIAC: He has a regular rhythm and rate without S3, S4, or murmur. ABDOMEN: He has a soft, nontender abdomen. Bowel sounds are present. There is no definite hepatosplenomegaly. EXTREMITIES: Reveals no clubbing, cyanosis, or edema. EKG shows normal sinus rhythm, normal EKG. LABORATORY DATA: Includes WBC 6.1, hemoglobin 11.7, platelets 175. Troponin 0.06. CK 310. BUN 31, creatinine 2.10, potassium 3.4. IMAGING STUDIES: Chest x-ray shows no acute disease. IMPRESSION: Exceedingly atypical chest pain in this 62-year-old male with a history of coronary artery disease, diabetes, sleep apnea, hypertension, remote history of lower extremity deep venous thrombosis, history of peripheral vascular disease. Despite prolonged and constant chest discomfort since last night, CK levels are negative for myocardial infarction. EKGs are normal. The slight elevation in troponin levels in the setting of renal insufficiency. Clinical suspicion for pulmonary embolism is very low. He just had a heart catheterization a few months ago showing overall minimal to mild disease with widely patent right coronary artery stents. RECOMMENDATIONS: No additional workup from a cardiac standpoint. MD LORI Juárez/KILEY , 02:57 PM , 03:21 PM SUSHILA
[2017-10-12] MEDS ORDERED: ORPHENADRINE INJ 60 MG/2 ML AMP IM ONE (17:00)
[2017-10-12] MEDS ORDERED: cloNIDine HCL 0.1 MG TAB PO ONE (17:00)
[2017-10-12] MEDS ORDERED: GABAPENTIN 400 MG CAP PO SCH (21:00)
--- NOTE | 2017-10-13 11:28 | EKG ---
Date Performed: 10/12/2017 Time Performed: 13:36:55 PTAGE: 62 years EKG: Sinus rhythm NORMAL ECG PREVIOUS TRACING : 10/12/2017 05.55 Since the previous tracing, no significant change noted DOCTOR: Kentrell Garay Interpretating Date/Time 10/13/2017 11:25:42
== END 2017-10-12 19:06 | disposition home or self-care (01) ==
LOC: NEPC 22:26 → UNDOADMIN 10-12 02:25 → NEDA 10-12 02:25 → INTOOBSV 10-12 02:52 → NEDA 10-12 05:10 → NEDH 10-12 06:15 → NEPHCDU 10-12 15:18
PROVIDERS: ADMIT Internal Medicine; ATTEND Internal Medicine
DX: R07.89 Other chest pain (principal); I25.10 Atherosclerotic heart disease of native coronary artery without angina pectoris; I13.10 Hypertensive heart and chronic kidney disease without heart failure, with stage 1 through stage 4 chronic kidney disease, or unspecified chronic kidney disease; E11.22 Type 2 diabetes mellitus with diabetic chronic kidney disease; N18.9 Chronic kidney disease, unspecified; E11.51 Type 2 diabetes mellitus with diabetic peripheral angiopathy without gangrene; E07.9 Disorder of thyroid, unspecified; G47.30 Sleep apnea, unspecified; D57.1 Sickle-cell disease without crisis; K86.1 Other chronic pancreatitis; I87.2 Venous insufficiency (chronic) (peripheral); E78.00 Pure hypercholesterolemia, unspecified; Z79.899 Other long term (current) drug therapy; Z86.718 Personal history of other venous thrombosis and embolism; Z79.01 Long term (current) use of anticoagulants; Z95.5 Presence of coronary angioplasty implant and graft; Z79.02 Long term (current) use of antithrombotics/antiplatelets; Z87.891 Personal history of nicotine dependence; Z86.73 Personal history of transient ischemic attack (TIA), and cerebral infarction without residual deficits
CPT/HCPCS: 71045; 80048; 80307; 82550; 82552; 83735; 84484; 85025; 85610; 85730; 93005; 96361; 96372; 96374; 96375; 99285; G0378; J1815; J2270; J2360; J2405; J7030

== ENCOUNTER 2017-11-22 19:05 | Emergency (ER) | payer OTHER, MEDICAID ==
[~2017-11-22 19:05] MED LIST changes: -CARD2TAB PO; -PLAV75TA29 PO
[2017-11-22 20:06] VITALS: BP 180/86; PULSE 67; RESP 18; TEMP 98.6; O2SAT 95
[2017-11-22 20:27] VITALS: BP 186/90; PULSE 62; RESP 18; O2SAT 96
[2017-11-22] MEDS ORDERED: SODIUM CHLORIDE 0.9% FLUSH 10 ML FLUSH IVF PRN (20:30)
[2017-11-22 20:39] LABS: AUTOMATED NEUTROPHIL # 3.5 TH/MM3 (1.8-7.7); BASOPHIL # 0.1 TH/MM3 (0-0.2); BASOPHIL % 0.9 % (0.0-2.0); EOSINOPHIL # 0.2 TH/MM3 (0-0.4); EOSINOPHIL % 4.2 % (0.0-4.0); HEMATOCRIT 40.4 % (39.0-51.0); HEMOGLOBIN 13.2 GM/DL (13.0-17.0); LYMPHOCYTE # 1.7 TH/MM3 (1.0-4.8); MEAN CELL VOLUME 76.6 FL (80.0-100.0); MEAN CORPUSCULAR HEMOGLOBIN 25.1 PG (27.0-34.0); MEAN CORPUSCULAR HGB CONC 32.7 % (32.0-36.0); MEAN PLATELET VOLUME 7.6 FL (7.0-11.0); MONO % 8.4 % (0.0-8.0); MONOCYTE # 0.5 TH/MM3 (0-0.9); NEUT % 58.5 % (16.0-70.0); PLATELET COUNT 202 TH/MM3 (150-450); RED BLOOD COUNT 5.27 MIL/MM3 (4.50-5.90); WHITE BLOOD COUNT 5.9 TH/MM3 (4.0-11.0)
[2017-11-22] MEDS ORDERED: ASPIRIN 81 MG CHEW TAB CHEW ONE (20:45)
[2017-11-22] MEDS ORDERED: ACETAMINOPHEN/HYDROcodone 325 MG/10 MG TAB PO ONE (20:45)
[2017-11-22 20:54] LABS: PROTHROMBIN TIME - PATIENT 10.3 SEC (9.8-11.6)
[2017-11-22 20:57] LABS: ALT (GPT) 32 U/L (12-78)
--- NOTE | 2017-11-22 21:01 | PD ---
HPI Chief Complaint: Chest Pain Time Seen by Provider: 20:18 Travel History International Travel<30 days: No Contact w/Intl Traveler<30days: No Traveled to known affect area: No History of Present Illness HPI Patient 62-year-old male presents emergency department for 2 complaints. He states neither complaint predominated his determination to visit the ER [facility]. His first complaint was of low back pain he states this is chronic is been present for several years. He was told that he had a pinched nerve in his low back and will need surgery to correct it. States symptoms been going on for some time. No saddle anesthesia hurts when he walks, no radiculopathy no problems urinating. His second complaint is of left-sided chest tightness associated with some mild nausea no shortness of breath. Patient does have a history of coronary artery disease stents placed several years ago. He states his pain at that time was more jaw pain than anything else. He does state that he has a chronically elevated troponin. States the symptoms are going on for the past 48 hours or so. Symptoms moderate, context as above, associated signs symptoms as above duration as above PFSH Past Medical History Hx Anticoagulant Therapy: Yes AAA: Yes (JUL 2011/ ) Anemia: Yes Arthritis: No Asthma: No Autoimmune Disease: No Blood Disorders: Yes (SICKLE CELL TRAIT) Anxiety: No Depression: No Heart Rhythm Problems: Yes Cancer: No Cardiac Catheterization: Yes (2016) Cardiovascular Problems: Yes (stents x5) High Cholesterol: Yes Chemotherapy: No Chest Pain: Yes Congestive Heart Failure: No COPD: No Cerebrovascular Accident: Yes Coronary Artery Disease: Yes Diabetes: Yes Patient Takes Glucophage: No Diminished Hearing: No Deep Vein Thrombosis: Yes (LT LEG) Endocrine: Yes GERD: No Glaucoma: No Genitourinary: No Headaches: No Hepatitis: No Hiatal Hernia: No Heparin Induced Thrombocytopen: No Hypertension: Yes Immune Disorder: No Implanted Vascular Access Dvce: Yes (RIGHT INSULIN PUMP removed) Kidney Stones: No Musculoskeletal: No Neurologic: No Psychiatric: No Reproductive: No Respiratory: Yes Immunizations Current: Yes Migraines: No Myocardial Infarction: No Pancreatitis: Yes Radiation Therapy: No Renal Failure: No Seizures: No Sickle Cell Disease: Yes (TRAIT) Sleep Apnea: Yes Thyroid Disease: Yes Ulcer: No Tetanus Vaccination: > 5 Years Influenza Vaccination: No PNEUMOCCOCAL Vaccine (Year): 3 Past Surgical History Abdominal Aneurysm Repair: Yes (2012) Abdominal Surgery: Yes AICD: No Appendectomy: No Arteriovenous Shunt: No Body Medical Devices: STENTS Cardiac Surgery: Yes (stentX5) Cholecystectomy: Yes Coronary Artery Bypass Graft: No Coronary Stent: Yes (2010 X 2, 2010 X2) Ear Surgery: No Endocrine Surgery: No Eye Surgery: No Genitourinary Surgery: No Gynecologic Surgery: No Insulin Pump: Yes (removed) Joint Replacement: Yes (LEFT HIP 2000) Neurologic Surgery: No Oral Surgery: No Pacemaker: No Thoracic Surgery: No Other Surgery: Yes (GB REMOVED) Social History Alcohol Use: No Tobacco Use: No (QUIT 2005) Substance Use: No Allergies-Medications (Allergen,Severity, Reaction): Coded Allergies: benazepril (Verified Allergy, Severe, ANGIOEDEMA, 11/22/17) captopril (Verified Allergy, Severe, ANGIOEDEMA, 11/22/17) enalaprilat (Verified Allergy, Severe, 11/22/17) ANGIOEDEMA fosinopril (Verified Allergy, Severe, ANGIOEDEMA, 11/22/17) lisinopril (Verified Allergy, Severe, ANGIOEDEMA, 11/22/17) quinapril (Verified Allergy, Severe, ANGIOEDEMA, 11/22/17) hydromorphone (Verified Adverse Reaction, Intermediate, ITCHING, 11/22/17) Reported Meds & Prescriptions Reported Meds & Active Scripts Active Nifedipine ER 24 HR (Nifedipine) 60 Mg Tab 60 Mg PO Q12HR Isosorbide Mononitrate ER (Isosorbide Mononitrate) 60 Mg Tab 90 Mg PO DAILY@07 Hydralazine (Hydralazine HCl) 100 Mg Tab 100 Mg PO Q8H Cozaar (Losartan Potassium) 50 Mg Tab 100 Mg PO DAILY Reported Lantus Inj (Insulin Glargine) 1,000 Unit/10 Ml Vial 62 Units SQ BID Lasix (Furosemide) 20 Mg Tab 20 Mg PO DAILY Gabapentin 800 Mg Tab 800 Mg PO TID Crestor (Rosuvastatin Calcium) 40 Mg Tab 40 Mg PO DAILY Eliquis (Apixaban) 5 Mg Tab 5 Mg PO BID Zetia (Ezetimibe) 10 Mg Tab 10 Mg PO DAILY Neupro Patch 24 HR (Rotigotine Patch 24 HR) 3 Mg/24 Hr Patch 3 Mg T-DERMAL DAILY Ambien (Zolpidem Tartrate) 10 Mg Tab 10 Mg PO HS PRN Novolin R Inj (Insulin Human Regular) 1,000 Unit/10 Ml Vial 0 SQ TIDACHS Sliding Scale As Directed. Nitroglycerin SL (Nitroglycerin) 0.4 Mg Subl 0.4 Mg SL DIRECTED PRN ONE TABLET UNDER THE TONGUE NEEDED FOR CHEST PAIN, MAY REPEAT EVERY FIVE MINUTES FOR A TOTAL OF 3 DOSES OR CALL 911 IF NO RELIEF Coreg (Carvedilol) 25 Mg Tab 25 Mg PO BID Review of Systems Except as stated in HPI: all other systems reviewed are Neg Physical Exam Narrative GENERAL: Well-developed well-nourished no obvious distress, morbidly obese. SKIN: Focused skin assessment warm/dry. HEAD: Atraumatic. Normocephalic. EYES: Pupils equal and round. No scleral icterus. No injection or drainage. ENT: No nasal bleeding or discharge. Mucous membranes pink and moist. NECK: Trachea midline. No JVD. CARDIOVASCULAR: Regular rate and rhythm. No murmur appreciated. No murmurs gallops or rubs., 2+ bilateral equal pulses in all 4 extremities. RESPIRATORY: No accessory muscle use. Clear to auscultation. Breath sounds equal bilaterally. No wheezes rales or rhonchi. GASTROINTESTINAL: Abdomen soft, non-tender, nondistended. Hepatic and splenic margins not palpable. MUSCULOSKELETAL: No obvious deformities. No clubbing. No cyanosis. No edema. No midline CT or L-spine tenderness, ambulates with an even narrow-base gait. 5 out of 5 strength in bilateral lower extremities. Straight leg raise is negative NEUROLOGICAL: Awake and alert. No obvious cranial nerve deficits. Motor grossly within normal limits. Normal speech. PSYCHIATRIC: Appropriate mood and affect; insight and judgment normal. Data Data Last Documented VS Vital Signs Date Time Temp Pulse Resp B/P (MAP) Pulse Ox O2 Delivery O2 Flow Rate FiO2 11/22/17 20:27 62 18 186/90 (122) 96 Room Air 11/22/17 20:06 98.6 Orders Orders Electrocardiogram (11/22/17 20:19) Ckmb (Isoenzyme) Profile (11/22/17 20:19) Complete Blood Count With Diff (11/22/17 20:19) Comprehensive Metabolic Panel (11/22/17 20:19) Magnesium (Mg) (11/22/17 20:19) Prothrombin Time / Inr (Pt) (11/22/17 20:19) Act Partial Throm Time (Ptt) (11/22/17 20:19) Troponin I (11/22/17 20:19) Chest, Single Ap (11/22/17 20:19) Ecg Monitoring (11/22/17 20:19) Iv Access Insert/Monitor (11/22/17 20:19) Oximetry (11/22/17 20:19) Oxygen Administration (11/22/17 20:19) Sodium Chloride 0.9% Flush (Ns Flush) (11/22/17 20:30) Aspirin Chew (Aspirin Chew) (11/22/17 20:45) Acetamin-Hydrocod 325-10 Mg (Colp 10-32 (11/22/17 20:45) CKMB (11/22/17 20:25) CKMB% (11/22/17 20:25) Orphenadrine Inj (Norflex Inj) (11/22/17 21:45) Labs Laboratory Tests Test 11/22/17 20:25 White Blood Count 5.9 TH/MM3 Red Blood Count 5.27 MIL/MM3 Hemoglobin 13.2 GM/DL Hematocrit 40.4 % Mean Corpuscular Volume 76.6 FL Mean Corpuscular Hemoglobin 25.1 PG Mean Corpuscular Hemoglobin Concent 32.7 % Red Cell Distribution Width 19.0 % Platelet Count 202 TH/MM3 Mean Platelet Volume 7.6 FL Neutrophils (%) (Auto) 58.5 % Lymphocytes (%) (Auto) 28.0 % Monocytes (%) (Auto) 8.4 % Eosinophils (%) (Auto) 4.2 % Basophils (%) (Auto) 0.9 % Neutrophils # (Auto) 3.5 TH/MM3 Lymphocytes # (Auto) 1.7 TH/MM3 Monocytes # (Auto) 0.5 TH/MM3 Eosinophils # (Auto) 0.2 TH/MM3 Basophils # (Auto) 0.1 TH/MM3 CBC Comment DIFF FINAL Differential Comment Prothrombin Time 10.3 SEC Prothromb Time International Ratio 1.0 RATIO Activated Partial Thromboplast Time 25.5 SEC Blood Urea Nitrogen 25 MG/DL Creatinine 2.38 MG/DL Random Glucose 299 MG/DL Total Protein 7.7 GM/DL Albumin 3.0 GM/DL Calcium Level 9.1 MG/DL Magnesium Level 2.2 MG/DL Alkaline Phosphatase 121 U/L Aspartate Amino Transf (AST/SGOT) 30 U/L Alanine Aminotransferase (ALT/SGPT) 32 U/L Total Bilirubin 0.4 MG/DL Sodium Level 141 MEQ/L Potassium Level 4.4 MEQ/L Chloride Level 102 MEQ/L Carbon Dioxide Level 29.0 MEQ/L Anion Gap 10 MEQ/L Estimat Glomerular Filtration Rate 34 ML/MIN Total Creatine Kinase 213 U/L Creatine Kinase MB 1.9 NG/ML Troponin I 0.08 NG/ML [facility] Medical Decision Making Medical Screen Exam Complete: Yes Emergency Medical Condition: Yes Differential Diagnosis ACS, [place], chronic back pain, pneumonia. Narrative Course Patient room to the emergency department, he seems to be more focused on his low back pain than his chest pain. I reported him a Colp he states he is taking his at home and he makes him constipated. He then requested a shot of morphine. I explained to him that morphine is for acute life-threatening pain enough for chronic pain and he states his pain in his back is been going on for years. There is no red flags for cauda equina syndrome he has been ambulatory in the bedroom and appears to be in no obvious distress. The patient was ultimately given a shot of Norflex. I discussed that his troponin is chronically elevated at 0.08 he has history of chronic kidney disease. I further reinforced the only person that can give him reassurance that there is no blockage his heart is his marketing communications manager and to do that there would probably have to do a cardiac catheterization which carries risk of kidney failure and being on dialysis. He verbalized understanding that he is "damned if i do and damned if i don't". He was offered admission to the hospital and states the last time he was here he did not receive any pain medication for his chest, he states the physician came down gave him a shot of Norflex and then discharged him. I discussed that his other option is to follow-up with his marketing communications manager as an outpatient but I cannot give him any reassurance that he is not at risk of major adverse cardiac events in the near future. This would carry risk of and permanent disability and verbalized understanding and acceptance. He expresses wishes to go home, initially I had consented him for a repeat troponin at 2+3 hours, I was approached by nursing at 1030 the patient is dressed and states he feels better and wants to go home. Because he did not have his second troponin I did ask him to sign AGAINST MEDICAL ADVICE. Diagnosis Primary Impression: Chest pain Additional Impression: Low back pain Disposition: 07 AGAINST MEDICAL ADVICE Condition: Stable Willie Gamble MD November 22, 2017 21:01
[2017-11-22 21:04] LABS: ALKALINE PHOSPHATASE 121 U/L (45-117); AST (GOT) 30 U/L (15-37); BLOOD UREA NITROGEN 25 MG/DL (7-18); CALCIUM 9.1 MG/DL (8.5-10.1); CHLORIDE 102 MEQ/L (98-107); CREATININE 2.38 MG/DL (0.60-1.30); GLOMERULAR FILTRATION RATE 34 ML/MIN (>89); GLUCOSE,RANDOM 299 MG/DL (74-106); MAGNESIUM 2.2 MG/DL (1.5-2.5); SODIUM (NA) 141 MEQ/L (136-145); TOTAL BILIRUBIN ADULT 0.4 MG/DL (0.2-1.0); TOTAL PROTEIN 7.7 GM/DL (6.4-8.2); TROPONIN I 0.08 NG/ML (0.02-0.05)
[2017-11-22] MEDS ORDERED: ORPHENADRINE INJ 60 MG/2 ML AMP IM ONE (21:45)
--- NOTE | 2017-11-22 21:46 | RADRPT ---
EXAM DATE/TIME: 11/22/2017 20:50 [facility] COMPARISON: CHEST SINGLE AP, October 12, 2017, 0:34. INDICATIONS : Chest pain. MEDICAL HISTORY : None. SURGICAL HISTORY : Stent placement. ENCOUNTER: Initial ACUITY: 1 day PAIN SCORE: 3/10 LOCATION: Bilateral chest FINDINGS: The heart size is normal. The lungs are free of focal consolidation. There is a possible rounded dens ity seen over the right base. In this location, a nipple shadow could have this appearance. No effusi on is seen. CONCLUSION: 1. No acute abnormality seen. 2. Questionable rounded density at the right base. One could further evaluate this with a PA and late ral chest x-ray with nipple markers. Ti Brink MD on November 22, 2017 at 21:42 Board Certified Radiologist. This report was verified electronically.
--- NOTE | 2017-11-23 19:38 | EKG ---
Date Performed: 11/22/2017 Time Performed: 20:20:07 PTAGE: 62 years EKG: Sinus rhythm Suspect incorrect lead placement in lead V6, otherwise no Significant change, since previous tracing . NORMAL ECG PREVIOUS TRACING : 10/12/2017 13.36 DOCTOR: Logan Hutson Interpretating Date/Time 11/23/2017 19:37:24
== END 2017-11-22 22:38 | disposition left against medical advice (07) ==
LOC: NEPC 19:05
DX: R07.9 Chest pain, unspecified (principal); M54.5 Low back pain; E11.9 Type 2 diabetes mellitus without complications; E78.00 Pure hypercholesterolemia, unspecified; I10 Essential (primary) hypertension; I25.10 Atherosclerotic heart disease of native coronary artery without angina pectoris; Z79.01 Long term (current) use of anticoagulants; Z79.4 Long term (current) use of insulin; Z79.899 Other long term (current) drug therapy; Z87.891 Personal history of nicotine dependence
CPT/HCPCS: 71045; 80053; 82550; 82552; 83735; 84484; 85025; 85610; 85730; 93005; 96372; 99285; J2360

== ENCOUNTER 2017-12-05 01:09 | Inpatient (IN) | payer OTHER, MEDICAID, MEDICARE ==
[2017-12-05] VITALS (34 sets, daily range): BP systolic 158–226; BP diastolic 75–98; PULSE 54–78; RESP 15–20; TEMP 97.8–98.2; O2SAT 92–99
[~2017-12-05] VITALS: Ht 175.3 cm; Wt 118.0 kg
[2017-12-05] MEDS ORDERED: SODIUM CHLORIDE 0.9% FLUSH 10 ML FLUSH IVF PRN (02:15)
[2017-12-05] MEDS ORDERED: SODIUM CHLORID 0.9% 500 ML INJ 500 ML IV SCH (02:15)
[2017-12-05] MEDS ORDERED: ASPIRIN 81 MG CHEW TAB PO ONE (02:15)
[2017-12-05] MEDS: NITROGLYCERIN 0.4 MG SL 25 TABS/BTL SL SCH ×3 (02:31→02:50)
[2017-12-05 02:41] LABS: AUTOMATED NEUTROPHIL # 5.2 TH/MM3 (1.8-7.7); BASOPHIL # 0.1 TH/MM3 (0-0.2); BASOPHIL % 0.7 % (0.0-2.0); EOSINOPHIL # 0.2 TH/MM3 (0-0.4); EOSINOPHIL % 2.8 % (0.0-4.0); HEMATOCRIT 35.6 % (39.0-51.0); HEMOGLOBIN 11.6 GM/DL (13.0-17.0); LYMPHOCYTE # 1.5 TH/MM3 (1.0-4.8); MEAN CORPUSCULAR HEMOGLOBIN 25.2 PG (27.0-34.0); MEAN CORPUSCULAR HGB CONC 32.8 % (32.0-36.0); MEAN PLATELET VOLUME 7.8 FL (7.0-11.0); MONO % 8.7 % (0.0-8.0); MONOCYTE # 0.7 TH/MM3 (0-0.9); NEUT % 67.8 % (16.0-70.0); PLATELET COUNT 183 TH/MM3 (150-450); RED BLOOD COUNT 4.62 MIL/MM3 (4.50-5.90); RED CELL DISTRIBUTION WIDTH 19.1 % (11.6-17.2); WHITE BLOOD COUNT 7.7 TH/MM3 (4.0-11.0)
[2017-12-05 02:44] LABS: PROTHROMBIN TIME - PATIENT 10.5 SEC (9.8-11.6)
--- NOTE | 2017-12-05 02:50 | RADRPT ---
EXAM DATE/TIME: 12/05/2017 02:22 [facility] COMPARISON: CHEST PA & LAT, July 30, 2016, 1:43. INDICATIONS : 3-4 Hours of left-sided chest pain. MEDICAL HISTORY : None. SURGICAL HISTORY : Stent placement. ENCOUNTER: Initial ACUITY: 1 day PAIN SCORE: 8/10 LOCATION: Bilateral chest FINDINGS: PA and lateral views of the chest demonstrate the lungs to be symmetrically aerated without evidence of mass, infiltrate or effusion. There is stable scarring in the lingula. The cardiomediastinal conto urs are unremarkable. Osseous structures are intact. CONCLUSION: Stable scarring in the lingula with no acute cardiopulmonary disease. Eugene Nelson MD on December 05, 2017 at 2:48 Board Certified Radiologist. This report was verified electronically.
[2017-12-05 02:55] LABS: TROPONIN I 0.07 NG/ML (0.02-0.05)
[2017-12-05] MEDS ORDERED: cloNIDine HCL 0.1 MG TAB PO ONE (03:00)
[2017-12-05] MEDS ORDERED: ONDANSETRON ODT 4 MG TAB PO ONE (03:00)
[2017-12-05] MEDS ORDERED: MORPHINE SULFATE 2 MG/ML SYRINGE IV PUSH ONE (03:00)
[2017-12-05] MEDS ORDERED: ONDANSETRON HCL 4 MG/2 ML VIAL IV PUSH ONE (03:00)
[2017-12-05] MEDS ORDERED: MORPHINE SULFATE 4 MG/ML INJ IV PUSH ONE ×2 (03:00→03:45)
[2017-12-05 03:10] LABS: BICARBONATE 29.1 MEQ/L (21.0-32.0); CALCIUM 8.5 MG/DL (8.5-10.1); CREATININE 2.28 MG/DL (0.60-1.30); MAGNESIUM 2.5 MG/DL (1.5-2.5)
--- NOTE | 2017-12-05 03:33 | PD ---
HPI Chief Complaint: Chest Pain Time Seen by Provider: 01:35 Travel History International Travel<30 days: No Contact w/Intl Traveler<30days: No Traveled to known affect area: No History of Present Illness HPI 62-year-old male presents to the emergency department for evaluation of chest pain. Patient has had symptoms 1 day. No referred neck jaw back shoulder arm pain. Patient also complains of chronic low back pain. Patient states low back pain has increased after doing multiple activities including lifting grandchildren. Patient denies any abdominal pain. No report of lower extremity pain or swelling. Patient has history of known coronary vessel disease and has had stents in the past is under the care of Dr. Brooks. Patient also has history of hypertension and diabetes. Patient denies dyslipidemia or tobaccoism. Patient also has history of referral to vascular disease. Patient is prescribed Eliquis. Patient has history of AAA status post repair at [facility]. Patient does not report any nausea or vomiting or sweats. Patient rates pain as 8/10 in intensity. Patient is taken no medications prior to arrival to the emergency department. Patient does take aspirin daily and last dose was Monday morning 81 mg. [facility] Past Medical History Narrative Medical Hypertension CAD diabetes peripheral vascular disease AAA status post repair July 2011 Eliquis therapy cardiac catheterization with stents; no tobacco use : Nursing notes reviewed Hx Anticoagulant Therapy: Yes AAA: Yes (JUL 2011/ ) Anemia: Yes Arthritis: No Asthma: No Autoimmune Disease: No Blood Disorders: Yes (SICKLE CELL TRAIT) Anxiety: No Depression: No Heart Rhythm Problems: Yes Cancer: No Cardiac Catheterization: Yes (2016) Cardiovascular Problems: Yes High Cholesterol: Yes Chemotherapy: No Chest Pain: Yes Congestive Heart Failure: No COPD: No Cerebrovascular Accident: Yes Coronary Artery Disease: Yes Diabetes: Yes Patient Takes Glucophage: No Diminished Hearing: No Deep Vein Thrombosis: Yes (LT LEG) Endocrine: Yes GERD: No Glaucoma: No Genitourinary: No Headaches: No Hepatitis: No Hiatal Hernia: No Heparin Induced Thrombocytopen: No Hypertension: Yes Immune Disorder: No Implanted Vascular Access Dvce: Yes (RIGHT INSULIN PUMP removed) Kidney Stones: No Musculoskeletal: No Neurologic: No Psychiatric: No Reproductive: No Respiratory: Yes Immunizations Current: Yes Migraines: No Myocardial Infarction: No Pancreatitis: Yes Radiation Therapy: No Renal Failure: No Seizures: No Sickle Cell Disease: Yes (TRAIT) Sleep Apnea: Yes Thyroid Disease: Yes Ulcer: No Tetanus Vaccination: > 5 Years Influenza Vaccination: Yes PNEUMOCCOCAL Vaccine (Year): 3 Past Surgical History Abdominal Aneurysm Repair: Yes (2012) Abdominal Surgery: Yes AICD: No Appendectomy: No Arteriovenous Shunt: No Body Medical Devices: STENTS Cardiac Surgery: Yes (stentX5) Cholecystectomy: Yes Coronary Artery Bypass Graft: No Coronary Stent: Yes (2009 X 2, 2010 X2) Ear Surgery: No Endocrine Surgery: No Eye Surgery: No Genitourinary Surgery: No Gynecologic Surgery: No Insulin Pump: Yes (removed) Joint Replacement: Yes (LEFT HIP 1999) Neurologic Surgery: No Oral Surgery: No Pacemaker: No Thoracic Surgery: No Other Surgery: Yes (GB REMOVED) Social History Alcohol Use: No Tobacco Use: No (QUIT 2005) Substance Use: No Allergies-Medications (Allergen,Severity, Reaction): Coded Allergies: benazepril (Verified Allergy, Severe, ANGIOEDEMA, 12/05/17) captopril (Verified Allergy, Severe, ANGIOEDEMA, 12/05/17) enalaprilat (Verified Allergy, Severe, 12/05/17) ANGIOEDEMA fosinopril (Verified Allergy, Severe, ANGIOEDEMA, 12/05/17) lisinopril (Verified Allergy, Severe, ANGIOEDEMA, 12/05/17) quinapril (Verified Allergy, Severe, ANGIOEDEMA, 12/05/17) hydromorphone (Verified Adverse Reaction, Intermediate, ITCHING, 12/05/17) Reported Meds & Prescriptions Reported Meds & Active Scripts Active Nifedipine ER 24 HR (Nifedipine) 60 Mg Tab 60 Mg PO Q12HR Isosorbide Mononitrate ER (Isosorbide Mononitrate) 60 Mg Tab 90 Mg PO DAILY@07 Hydralazine (Hydralazine HCl) 100 Mg Tab 100 Mg PO Q8H Cozaar (Losartan Potassium) 50 Mg Tab 100 Mg PO DAILY Reported Lantus Inj (Insulin Glargine) 1,000 Unit/10 Ml Vial 62 Units SQ BID Lasix (Furosemide) 20 Mg Tab 20 Mg PO DAILY Gabapentin 800 Mg Tab 800 Mg PO TID Crestor (Rosuvastatin Calcium) 40 Mg Tab 40 Mg PO DAILY Eliquis (Apixaban) 5 Mg Tab 5 Mg PO BID Zetia (Ezetimibe) 10 Mg Tab 10 Mg PO DAILY Neupro Patch 24 HR (Rotigotine Patch 24 HR) 3 Mg/24 Hr Patch 3 Mg T-DERMAL DAILY Ambien (Zolpidem Tartrate) 10 Mg Tab 10 Mg PO HS PRN Novolin R Inj (Insulin Human Regular) 1,000 Unit/10 Ml Vial 0 SQ TIDACHS Sliding Scale As Directed. Nitroglycerin SL (Nitroglycerin) 0.4 Mg Subl 0.4 Mg SL DIRECTED PRN ONE TABLET UNDER THE TONGUE NEEDED FOR CHEST PAIN, MAY REPEAT EVERY FIVE MINUTES FOR A TOTAL OF 3 DOSES OR CALL 911 IF NO RELIEF Coreg (Carvedilol) 25 Mg Tab 25 Mg PO BID Review of Systems Except as stated in HPI: all other systems reviewed are Neg General / Constitutional: No: Fever, Chills HENT: No: Congestion Cardiovascular: Positive: Chest Pain or Discomfort Respiratory: No: Shortness of Breath Gastrointestinal: No: Nausea, Vomiting, Abdominal Pain Genitourinary: No: Dysuria, Flank Pain Musculoskeletal: No: Myalgias, Arthralgias Skin: No Rash Neurologic: No: Weakness Psychiatric: No: Anxiety Hematologic/Lymphatic: No: Lymph Node Enlargement Physical Exam Narrative GENERAL: Well-developed well-nourished male in no acute distress no respiratory distress; GCS 15 SKIN: Warm and dry. HEAD: Normocephalic. EYES: No scleral icterus. No injection or drainage. NECK: Supple, trachea midline. No JVD or lymphadenopathy. CARDIOVASCULAR: Regular rate and rhythm without murmurs, gallops, or rubs. RESPIRATORY: Breath sounds equal bilaterally. No accessory muscle use. GASTROINTESTINAL: Abdomen soft, non-tender, nondistended. Nontender to palpation no guarding no rebound no palpable pulsatile mass. MUSCULOSKELETAL: No cyanosis, or edema. Radial and dorsalis pedis pulses 2+ to palpation bilaterally. BACK: Nontender without obvious deformity. No CVA tenderness. Data Data Last Documented VS Vital Signs Date Time Temp Pulse Resp B/P (MAP) Pulse Ox O2 Delivery O2 Flow Rate FiO2 12/05/17 03:33 60 18 216/98 (137) 97 Room Air 12/05/17 02:13 98.0 Orders Orders Electrocardiogram (12/05/17 02:08) Basic Metabolic Panel (Bmp) (12/05/17 02:08) Ckmb (Isoenzyme) Profile (12/05/17 02:08) Complete Blood Count With Diff (12/05/17 02:08) Magnesium (Mg) (12/05/17 02:08) Prothrombin Time / Inr (Pt) (12/05/17 02:08) Act Partial Throm Time (Ptt) (12/05/17 02:08) Troponin I (12/05/17 02:08) Ecg Monitoring (12/05/17 02:08) Bilateral Bp Monitoring (12/05/17 02:08) Iv Access Insert/Monitor (12/05/17 02:08) Oximetry (12/05/17 02:08) Oxygen Administration (12/05/17 02:08) Aspirin Chew (Aspirin Chew) (12/05/17 02:15) Sodium Chloride 0.9% Flush (Ns Flush) (12/05/17 02:15) Nitroglycerin Sl (Nitrostat Sl) (12/05/17 02:15) Chest, Pa & Lat (12/05/17 02:08) Sodium Chlorid 0.9% 500 Ml Inj (Ns 500 M (12/05/17 02:15) Clonidine (Catapres) (12/05/17 03:00) CKMB (12/05/17 02:15) CKMB% (12/05/17 02:15) Ondansetron Odt (Zofran Odt) (12/05/17 03:00) Morphine Inj (Morphine Inj) (12/05/17 03:00) Nitroglycerin-D5w 50 Mg/250 Ml (Nitrogly (12/05/17 03:45) Morphine Inj (Morphine Inj) (12/05/17 03:45) Admit Order (Ed Use Only) (12/05/17 ) Reduction Furnace Operator Helper / Telemetry KENNEDI.Q8H (12/05/17 03:41) Activity Bed Rest (12/05/17 03:41) Notify Dr: Other (12/05/17 03:41) Admit To Inpatient (12/05/17 ) Vital Signs (Adult) Q4H (12/05/17 03:41) Activity Oob Ad Edilia (12/05/17 03:41) Reduction Furnace Operator Helper / Telemetry .CONTINUOUS (12/05/17 03:41) Diet Heart Healthy (12/05/17 Breakfast) Sodium Chloride 0.9% Flush (Ns Flush) (12/05/17 03:45) Sodium Chloride 0.9% Flush (Ns Flush) (12/05/17 09:00) Acetaminophen (Tylenol) (12/05/17 03:45) Troponin I (12/05/17 03:41) Troponin I (12/05/17 09:41) Electrocardiogram (12/05/17 03:41) Electrocardiogram (12/05/17 09:41) Resp Oxygen Blake C Titrat 1-4 L (12/05/17 ) Naloxone Inj (Narcan Inj) (12/05/17 03:45) Magnesium Hydroxide Liq (Milk Of Magnesi (12/05/17 03:45) Sennosides (Senokot) (12/05/17 03:45) Bisacodyl Supp (Dulcolax Supp) (12/05/17 03:45) Lactulose Liq (Lactulose Liq) (12/05/17 03:45) Inpatient Certification (12/05/17 ) Labs Laboratory Tests Test 12/05/17 02:15 White Blood Count 7.7 TH/MM3 Red Blood Count 4.62 MIL/MM3 Hemoglobin 11.6 GM/DL Hematocrit 35.6 % Mean Corpuscular Volume 77.0 FL Mean Corpuscular Hemoglobin 25.2 PG Mean Corpuscular Hemoglobin Concent 32.8 % Red Cell Distribution Width 19.1 % Platelet Count 183 TH/MM3 Mean Platelet Volume 7.8 FL Neutrophils (%) (Auto) 67.8 % Lymphocytes (%) (Auto) 20.0 % Monocytes (%) (Auto) 8.7 % Eosinophils (%) (Auto) 2.8 % Basophils (%) (Auto) 0.7 % Neutrophils # (Auto) 5.2 TH/MM3 Lymphocytes # (Auto) 1.5 TH/MM3 Monocytes # (Auto) 0.7 TH/MM3 Eosinophils # (Auto) 0.2 TH/MM3 Basophils # (Auto) 0.1 TH/MM3 CBC Comment DIFF FINAL Differential Comment Prothrombin Time 10.5 SEC Prothromb Time International Ratio 1.0 RATIO Activated Partial Thromboplast Time 26.3 SEC Blood Urea Nitrogen 30 MG/DL Creatinine 2.28 MG/DL Random Glucose 333 MG/DL Calcium Level 8.5 MG/DL Magnesium Level 2.5 MG/DL Sodium Level 142 MEQ/L Potassium Level 4.3 MEQ/L Chloride Level 106 MEQ/L Carbon Dioxide Level 29.1 MEQ/L Anion Gap 7 MEQ/L Estimat Glomerular Filtration Rate 36 ML/MIN Total Creatine Kinase 745 U/L Creatine Kinase MB 3.7 NG/ML Creatine Kinase MB % 0.5 % Troponin I 0.07 NG/ML MDM Medical Decision Making Medical Screen Exam Complete: Yes Emergency Medical Condition: Yes Medical Record Reviewed: Yes Interpretation(s) EKG sinus bradycardia rate [address] elevation injury pattern or ectopy noted Last Impressions Chest X-Ray 12/05/17 0208 Signed Impressions: Service Date/Time: Tuesday, December 05, 2017 02:22 - CONCLUSION: Stable scarring in the lingula with no acute cardiopulmonary disease. Eugene Nelson MD CBC & BMP Diagram 12/05/17 02:15 Calcium Level 8.5, Magnesium Level 2.5 Vital Signs Date Time Temp Pulse Resp B/P (MAP) Pulse Ox O2 Delivery O2 Flow Rate FiO2 12/05/17 02:44 61 192/87 (122) 99 Room Air 12/05/17 02:13 98.0 55 20 220/90 (133) 98 Room Air 215/88 (130) 12/05/17 02:11 Room Air 12/05/17 02:11 20 12/05/17 01:41 98.0 60 20 226/90 (135) 98 Room Air 12/05/17 01:16 98.1 59 15 184/86 (118) 96 Differential Diagnosis Chest pain, ACS, IN, atypical chest pain, gastritis, musculoskeletal pain, aortic dissection Narrative Course Patient placed on nuclear monitoring technician with IV access specimens collected and sent for resulting EKG performed which is sinus bradycardia rate of [address] elevation injury pattern or ectopy noted; patient given aspirin 162 mg by mouth as well as sublingual nitroglycerin Patient has had 2 sublingual nitroglycerin with complaint of headache chest pain reportedly unchanged and requesting pain medication; patient administer clonidine 0.1 mg along with morphine sulfate 2 mg IV and Zofran 4 mg IV Lab values are resulted at 3:28 AM patient's troponin I is 0.07 mild elevated CK total is elevated at 745, elevated MB is elevated 3.7 however MB percent 0.5 % is not elevated Chemistries remarkable for hyperglycemia glucose 233 BUN and creatinine are elevated at 30/2.8 respectively patient does have anemia hemoglobin 11.6 Call placed to medical service for admission Critical Care Narrative Aggregate critical care time was 35 minutes. Time to perform other separately billable procedures was not included in the critical care time. My time did not include minutes spent treating any other patients simultaneously or on activities that did not directly contribute to the patient's treatment. The services I provided to this patient were to treat and/or prevent clinically significant deterioration that could result in: CVA, dissection, IN, I provided critical care services requiring my management, as noted below: Chart data review, documentation time, medication orders and management, vital sign assessments/reviewing monitor data, ordering and reviewing lab tests, ordering and interpreting/reviewing x-rays and diagnostic studies, care of the patient and discussion of the patient with the admitting physicians. Physician Communication Physician Communication call placed to [facility] service for admission Diagnosis Primary Impression: Chest pain, rule out acute myocardial infarction Additional Impressions: Accelerated hypertension Renal insufficiency Hyperglycemia Admitting Information Admitting Physician Requests: Admit Louann Stewart MD December 05, 2017 03:33
[2017-12-05] MEDS ORDERED: NALOXONE HCL 0.4 MG/ML AMP IV PUSH PRN (03:45)
[2017-12-05] MEDS ORDERED: MAGNESIUM HYDROXIDE SUSP 30 ML CUP PO PRN (03:45)
[2017-12-05] MEDS ORDERED: LACTULOSE SYRUP 20 GM/30 ML CUP PO PRN (03:45)
[2017-12-05] MEDS ORDERED: SODIUM CHLORIDE 0.9% FLUSH 10 ML FLUSH IV FLUSH PRN (03:45)
[2017-12-05] MEDS ORDERED: NITROGLYCERIN-D5W 50 MG/250 ML 250 ML IV ONE (03:45)
[2017-12-05] MEDS ORDERED: hydrALAZINE HCL 20 MG/ML VIAL IV PUSH ONE ×2 (03:45→04:15)
[2017-12-05] MEDS ORDERED: DEXTROSE 50% IN WATER 50 ML VIAL(D50) IV PUSH PRN (03:45)
[2017-12-05] MEDS ORDERED: GLUCAGON 1 MG/ML VIAL OTHER PRN (03:45)
[2017-12-05] MEDS ORDERED: BISACODYL 10 MG SUPP RECTAL PRN (03:45)
[2017-12-05] MEDS ORDERED: ACETAMINOPHEN 325 MG TAB PO PRN (03:45)
[2017-12-05] MEDS ORDERED: ONDANSETRON ODT 4 MG TAB PO PRN (04:15)
[2017-12-05] MEDS ORDERED: ACETAMINOPHEN/HYDROcodone 325 MG/7.5 MG TAB PO PRN (05:00)
--- NOTE | 2017-12-05 05:34 | HHI.HP ---
[facility] Keenan Gresham MD Admission Diagnosis chest pain/acs; accelerated HTN; renal insufficiency Diagnoses: Chief Complaint: Chest pain Travel History International Travel<30 Days: No Contact w/Intl Traveler <30 Da: No Traveled to Known Affected Are: No History of Present Illness Mr. William is a 62-year-old -[place] male with a history of hypertension , CKD, PVD who presents to the emergency department due to left-sided chest pain that started around 10 PM on 12/04/2017. Patient describes his chest pain is localized to his left side of the chest without any radiation to the neck jaw or arms. There was no nausea vomiting or diaphoresis. In the ED he was found to have high blood pressure, highest being 226/90. Patient also complains of low back pain. Shortness of breath, abdominal pain. No changes in bladder or bowel habits. Review of Systems Except as stated in HPI: all other systems reviewed are Neg Past Family Social History Past Medical History Peripheral vascular disease Diabetes mellitus Hypertension AAA Sickle cell trait Past Surgical History AAA repair in 2012, cardiac stent placement, left hip replacement 1999, cholecystectomy Reported Medications Nifedipine ER 24 HR (Nifedipine) 60 Mg Tab 60 Mg PO Q12HR Isosorbide Mononitrate ER (Isosorbide Mononitrate) 60 Mg Tab 90 Mg PO DAILY@07 Hydralazine (Hydralazine HCl) 100 Mg Tab 100 Mg PO Q8H Cozaar (Losartan Potassium) 50 Mg Tab 100 Mg PO DAILY Reported Lantus Inj (Insulin Glargine) 1,000 Unit/10 Ml Vial 62 Units SQ BID Lasix (Furosemide) 20 Mg Tab 20 Mg PO DAILY Gabapentin 800 Mg Tab 800 Mg PO TID Crestor (Rosuvastatin Calcium) 40 Mg Tab 40 Mg PO DAILY Eliquis (Apixaban) 5 Mg Tab 5 Mg PO BID Zetia (Ezetimibe) 10 Mg Tab 10 Mg PO DAILY Neupro Patch 24 HR (Rotigotine Patch 24 HR) 3 Mg/24 Hr Patch 3 Mg T-DERMAL DAILY Ambien (Zolpidem Tartrate) 10 Mg Tab 10 Mg PO HS PRN Novolin R Inj (Insulin Human Regular) 1,000 Unit/10 Ml Vial 0 SQ TIDACHS Sliding Scale As Directed. Nitroglycerin SL (Nitroglycerin) 0.4 Mg Subl 0.4 Mg SL DIRECTED PRN ONE TABLET UNDER THE TONGUE NEEDED FOR CHEST PAIN, MAY REPEAT EVERY FIVE MINUTES FOR A TOTAL OF 3 DOSES OR CALL 911 IF NO RELIEF Coreg (Carvedilol) 25 Mg Tab 25 Mg PO BID Allergies: Coded Allergies: benazepril (Verified Allergy, Severe, ANGIOEDEMA, 12/05/17) captopril (Verified Allergy, Severe, ANGIOEDEMA, 12/05/17) enalaprilat (Verified Allergy, Severe, 12/05/17) ANGIOEDEMA fosinopril (Verified Allergy, Severe, ANGIOEDEMA, 12/05/17) lisinopril (Verified Allergy, Severe, ANGIOEDEMA, 12/05/17) quinapril (Verified Allergy, Severe, ANGIOEDEMA, 12/05/17) hydromorphone (Verified Adverse Reaction, Intermediate, ITCHING, 12/05/17) Family History Mother has no diabetes or high blood pressure Social History Alcohol Use: No Tobacco Use: No (QUIT 2005) Substance Use: No Physical Exam Vital Signs Vital Signs Date Time Temp Pulse Resp B/P (MAP) Pulse Ox O2 Delivery O2 Flow Rate FiO2 12/05/17 05:05 54 18 183/79 (113) 97 Room Air 12/05/17 04:25 64 18 187/88 (121) 97 Room Air 12/05/17 04:08 20 12/05/17 04:06 62 18 203/98 (133) 97 Room Air 12/05/17 04:03 97 12/05/17 03:54 60 220/90 12/05/17 03:33 60 18 216/98 (137) 97 Room Air 12/05/17 02:44 61 192/87 (122) 99 Room Air 12/05/17 02:13 98.0 55 20 220/90 (133) 98 Room Air 215/88 (130) 12/05/17 02:11 Room Air 12/05/17 02:11 20 12/05/17 01:41 98.0 60 20 226/90 (135) 98 Room Air 12/05/17 01:16 98.1 59 15 184/86 (118) 96 Physical Exam GENERAL: This is a well-nourished, well-developed patient, in no apparent distress. SKIN: No rashes, ecchymoses or lesions. Warm and dry. HEAD: Atraumatic. Normocephalic. No temporal or scalp tenderness. EYES: Pupils equal round and reactive. No injection or drainage. ENT: Nose without bleeding, purulent drainage or septal hematoma. Airway patent. NECK: Trachea midline. No lymphadenopathy. Supple, nontender, no meningeal signs. CARDIOVASCULAR: Regular rate and rhythm without murmurs, gallops, or rubs. No JVD. RESPIRATORY: Clear to auscultation. Breath sounds equal bilaterally. No wheezes , rales, or rhonchi. GASTROINTESTINAL: Abdomen soft, non-tender, nondistended. No guarding. MUSCULOSKELETAL: Extremities without clubbing, cyanosis, or edema. Chronic venous stasis changes on the lower extremities especially on the left. NEUROLOGICAL: Awake and alert. Cranial nerves II through XII intact. No focal neurological deficits. Normal speech. Laboratory Laboratory Tests Test 12/05/17 02:15 White Blood Count 7.7 Red Blood Count 4.62 Hemoglobin 11.6 Hematocrit 35.6 Mean Corpuscular Volume 77.0 Mean Corpuscular Hemoglobin 25.2 Mean Corpuscular Hemoglobin Concent 32.8 Red Cell Distribution Width 19.1 Platelet Count 183 Mean Platelet Volume 7.8 Neutrophils (%) (Auto) 67.8 Lymphocytes (%) (Auto) 20.0 Monocytes (%) (Auto) 8.7 Eosinophils (%) (Auto) 2.8 Basophils (%) (Auto) 0.7 Neutrophils # (Auto) 5.2 Lymphocytes # (Auto) 1.5 Monocytes # (Auto) 0.7 Eosinophils # (Auto) 0.2 Basophils # (Auto) 0.1 CBC Comment DIFF FINAL Differential Comment Prothrombin Time 10.5 Prothromb Time International Ratio 1.0 Activated Partial Thromboplast Time 26.3 Blood Urea Nitrogen 30 Creatinine 2.28 Random Glucose 333 Calcium Level 8.5 Magnesium Level 2.5 Sodium Level 142 Potassium Level 4.3 Chloride Level 106 Carbon Dioxide Level 29.1 Anion Gap 7 Estimat Glomerular Filtration Rate 36 Total Creatine Kinase 745 Creatine Kinase MB 3.7 Creatine Kinase MB % 0.5 Troponin I 0.07 Result Diagram: 12/05/1721412/05/17214 Imaging Last Impressions Chest X-Ray 12/05/17 0208 Signed Impressions: Service Date/Time: Tuesday, December 05, 2017 02:22 - CONCLUSION: Stable scarring in the lingula with no acute cardiopulmonary disease. MD Carmen Ryan VTE Risk Assessment Herbrini VTE Risk Assessment: Mod/High Risk (score >= 2) Caprini Risk Assessment Model Point Value = 1 Point Value = 2 Point Value = 3 Point Value = 5 Age 41-60 Minor surgery BMI > 25 kg/m2 Swollen legs Varicose veins or History of unexplained or recurrent spontaneous Oral contraceptives or hormone replacement Sepsis (< 1 month) Serious lung disease, including pneumonia (< 1 month) Abnormal pulmonary function Acute myocardial infarction Congestive heart failure (< 1 month) History of inflammatory bowel disease Medical patient at bed rest Age 61-74 Arthroscopic surgery Major open surgery (> 45 min) Laparoscopic surgery (> 45 min) Malignancy Confined to bed (> 72 hours) Immobilizing plaster cast Central venous access Age >= 75 History of VTE Family history of VTE Factor V Leiden Prothrombin [id number] Lupus anticoagulant Anticardiolipin antibodies Elevated serum homocysteine Heparin-induced thrombocytopenia Other congenital or acquired thrombophilia Stroke (< 1 month) Elective arthroplasty Hip, pelvis, or leg fracture Acute spinal cord injury (< 1 month) Prophylaxis Regimen Total Risk Factor Score Risk Level Prophylaxis Regimen 0-1 Low Early ambulation 2 Moderate Order ONE of the following: *Sequential Compression Device (SCD) *Heparin 5000 units SQ BID 3-4 Higher Order ONE of the following medications: *Heparin 5000 units SQ TID *Enoxaparin/Lovenox 40 mg SQ daily (WT < 150 kg, CrCl > 30 mL/min) *Enoxaparin/Lovenox 30 mg SQ daily (WT < 150 kg, CrCl > 10-29 mL/min) *Enoxaparin/Lovenox 30 mg SQ BID (WT < 150 kg, CrCl > 30 mL/min) AND/OR *Sequential Compression Device (SCD) 5 or more Highest Order ONE of the following medications: *Heparin 5000 units SQ TID (Preferred with Epidurals) *Enoxaparin/Lovenox 40 mg SQ daily (WT < 150 kg, CrCl > 30 mL/min) *Enoxaparin/Lovenox 30 mg SQ daily (WT < 150 kg, CrCl > 10-29 mL/min) *Enoxaparin/Lovenox 30 mg SQ BID (WT < 150 kg, CrCl > 30 mL/min) AND *Sequential Compression Device (SCD) Assessment and Plan Problem List: (1) Accelerated hypertension ICD Code: I10 - Essential (primary) hypertension Status: Acute (2) History of DVT (deep vein thrombosis) ICD Code: Z86.718 - Personal history of other venous thrombosis and embolism Status: Acute (3) CAD (coronary artery disease) ICD Code: I25.10 - Atherosclerotic heart disease of [place] coronary artery without angina pectoris Status: Chronic Assessment and Plan Mr. William is a pleasant 62-year-old -[place] male with a history of hypertension, coronary artery disease, PVD who presents to the emergency department due to left-sided chest discomfort that lasted for several hours. Patient also was found to have high blood pressure systolic 220. Chest pain -Likely atypical and related to accelerated hypertension. -We will check troponins 2 EKG as well. Accelerated hypertension -We ordered hydralazine IV but apparently not available. -We will resume patient's home medications including hydralazine 100 mg every 8 hours, isosorbide mononitrate 90 mg daily, losartan 100 mg daily, nifedipine 60 mg every 12 hours. - Will add Clonidine 0.1mg Q6hrs PRN. Diabetes mellitus -Levemir 15 units BID, medium sliding scale insulin, aspart 7 units 3 times daily before meals. -Patient takes 62 units of Lantus BID at home. However, compliance is questionable. We will start low dose of long acting insulin and titrate up. CKD Stage III - Advised patient to follow up with a Transcript Clerk with regards to CKD III and resistant hypertension. History of DVT -patient continues to take apixaban 5 milligrams twice daily Full code. Apixaban 5 mg twice daily Physician Certification 2 Midnight Certification Type: Admission for Inpatient Services Order for Inpatient Services The services are ordered in accordance with Medicare regulations or non- Medicare payer requirements, as applicable. In the case of services not specified as inpatient-only, they are appropriately provided as inpatient services in accordance with the 2-midnight benchmark. Estimated LOS (days): 2 days is the estimated time the patient will need to remain in the hospital, assuming treatment plan goals are met and no additional complications. Post-Hospital Plan: [facility],Shahabuddin DO December 05, 2017 05:34
[2017-12-05] MEDS: MORPHINE SULFATE 4 MG/ML INJ IV PUSH PRN ×6 (06:31→22:59)
[2017-12-05] MEDS: hydrALAZINE HCL 100 MG TAB PO SCH ×3 (06:31→22:26)
[2017-12-05] MEDS: ISOSORBIDE MONONITRATE 30 MG CR TAB (IMDUR) PO SCH (06:36)
[2017-12-05] MEDS: LOSARTAN 50 MG TAB PO SCH (08:23)
[2017-12-05] MEDS: ATORVASTATIN 80 MG TAB PO SCH (08:23)
[2017-12-05] MEDS: APIXABAN 5 MG TABLET PO SCH ×2 (08:23→19:54)
[2017-12-05] MEDS: INSULIN DETEMIR 100 UNITS/ML VIAL SQ SCH ×2 (08:24→21:34)
[2017-12-05] MEDS: INSULIN ASPART SUPPLEMENTAL SCALE SQ SCH ×4 (08:24→21:34)
[2017-12-05] MEDS: NIFEdipine 60 MG SUSTAINED RELEASE TAB PO SCH ×2 (08:31→20:17)
[2017-12-05] MEDS: SODIUM CHLORIDE 0.9% FLUSH 10 ML FLUSH IV FLUSH SCH ×2 (09:00→19:55)
[2017-12-05] MEDS: INSULIN ASPART 1,000 UNITS/10 ML VIAL SQ SCH ×2 (12:00→17:16)
[2017-12-05] MEDS: CARVEDILOL 12.5 MG TAB PO SCH ×2 (13:18→19:55)
[2017-12-05] MEDS: HYDROCHLOROTHIAZIDE 12.5 MG CAP PO SCH ×2 (13:19→17:16)
--- NOTE | 2017-12-05 16:40 | EKG ---
Date Performed: 12/05/2017 Time Performed: 01:57:46 PTAGE: 62 years EKG: SINUS BRADYCARDIA BORDERLINE ECG PREVIOUS TRACING 11/22/17 @ 20.20.07 Since the previous tracing, no significant change noted DOCTOR: Aravind Mooney Interpretating Date/Time 12/05/2017 16:39:34
[2017-12-05] MEDS: cloNIDine HCL 0.1 MG TAB PO PRN (18:24)
[2017-12-05] MEDS ORDERED: diphenhydrAMINE HCL 25 MG CAP PO ONE (20:15)
--- NOTE | 2017-12-05 20:57 | MB ---
cc: Dilip Soriano Vincent G DO DATE: 12/05/2017 REASON FOR CONSULTATION: Chest pain, hypertensive urgency. HISTORY OF PRESENT ILLNESS: Elvin William is a pleasant 62-year-old male who sees my partner, Dr. Borges, in the office and presented due to chest pain. He states that the chest pain is located on the left side of his chest and has no areas of radiation. He denies nausea, vomiting or diaphoresis. He has had similar multiple admissions for the same type of a complaint and he has always been noted to be relatively hypertensive. On arrival, he was found to have a blood pressure of 226/90. He also complains of low back pain, which is chronic for him. He denies shortness of breath, abdominal pain or palpitations. PAST MEDICAL HISTORY: 1. Coronary artery disease. 2. Peripheral vascular disease. 3. Diabetes mellitus. 4. Hypertension. 5. History of abdominal aortic aneurysm. 6. Sickle cell trait. PAST SURGICAL HISTORY: 1. Cardiac catheterization (03/31/2017): Left main and LAD normal with mild luminal irregularities. Left circumflex mid portion of the AV groove has a 50% lesion, but is an overall small vessel at 1.5 mm. It gives off 1 obtuse marginal with 20-30% lesion in the mid portion. RCA 20-30% in-stent restenosis of the distal stent. 2. AAA repair (2012). 3 Left hip replacement (1999). 4. Cholecystectomy. 5. Incision and drainage of left leg hematoma, thrombectomy of left femoral to posterior tibial bypass graft, revision of left femoral to posterior tibial vein graft with interposition vein graft using reverse saphenous vein from the right leg (02/10/2009). 6. Redo left femoral to tibial bypass with saphenous vein graft from right leg (01/15/2009). ALLERGIES: 1. DAWIT INHIBITORS. 2. HYDROMORPHONE. MEDICATIONS: 1. Eliquis 5 mg b.i.d. 2. Zetia 10 mg daily. 3. Crestor 40 mg daily. 4. Hydralazine 100 mg every 8 hours. 5. Imdur 90 mg daily. 6. Nitro sublingual as needed. 7. Coreg 25 mg b.i.d. 8. Nifedipine 60 mg every 12 hours. 9. Losartan 100 mg daily. 10. Gabapentin 800 mg t.i.d. 11. Ambien 10 mg every night as needed for insomnia. 12. Lasix 20 mg daily. 13. Lantus 62 units b.i.d. 14. NovoLog sliding scale. FAMILY HISTORY: Denies premature coronary artery disease or sudden cardiac within the family. SOCIAL HISTORY: The patient denies alcohol or drug abuse. He previously smoked, but quit in 2005. REVIEW OF SYSTEMS: Fourteen systems were reviewed including osteopathic. Pertinent positives and negatives as above, otherwise negative. PHYSICAL EXAMINATION: VITAL SIGNS: Temperature 98.0, heart rate 65, blood pressure 158/79, respirations 18, pulse oximetry 98% on 1 liter. GENERAL: The patient appears well in no acute distress, alert, awake and oriented x3. HEENT: Extraocular muscles intact. Mucous membranes moist. NECK: Supple. No JVD at 45 degrees. No carotid bruits heard bilaterally. Carotid upstroke is brisk in nature. HEART: Regular rate and rhythm. Positive first and second heart sounds with no noted murmurs, gallops or rubs. LUNGS: Clear to auscultation bilaterally. No wheezes, rales or rhonchi. ABDOMEN: Soft, nontender, nondistended, no organomegaly noted. EXTREMITIES: Show no clubbing, cyanosis or edema. Femoral and distal pulses intact bilaterally. NEUROLOGIC: No focal deficits. SKIN: Warm, dry and intact. OSTEOPATHIC: Mild lordosis, no kyphoscoliosis. Positive lower back pain with palpation. LABORATORY DATA: Hemoglobin 11.6, hematocrit 35.6, platelets 183. Potassium 4.3, BUN 30, creatinine 2.28. Troponin 0.07. CARDIOLOGY STUDIES: Electrocardiogram (12/05/2017 0157): Sinus bradycardia. No acute ST-T wave changes. IMPRESSION: 1. Hypertensive urgency/accelerated hypertension. 2. Chronically elevated blood pressure. 3. Chest pain, most likely due to hypertensive urgency. 4. Diabetes mellitus. 5. Chronic kidney disease, stage III, with deterioration of his kidney function over time. 6. Coronary artery disease. 7. Chest pain due to hypertensive urgency. 8. Peripheral artery disease. RECOMMENDATIONS: 1. Mr. William presented similarly as in the past with blood pressures extensively elevated and chest pain. 2. Blood pressure was 226/90 on arrival and he has been continued on his medications, as well as a nitro drip and his blood pressure is 160/80. He currently is on an extensive regimen of blood pressure medications including max/high doses of hydralazine, Imdur, Coreg, nifedipine ER., losartan. 3. As he is on an extensive antihypertensive and has deterioration of his kidney function, I feel that Nephrology should be involved in consideration of looking for renal artery stenosis. Overall, his kidney function is not great, but ideally a CTA would be helpful. 4. He does have a minimally elevated troponin, but this is stable and he has had this chronically for the past 6 months. Overall, I do not believe that this represents acute coronary syndrome or Non ST elevation myocardial infarction, but more than likely due to his chronic kidney dysfunction as well as extensive hypertension. He previously had a cardiac catheterization with minimal coronary artery disease and so this will not be reevaluated at this time. 5. We will attempt to wean him off his nitroglycerin. 6. Further recommendations will be made based on the hospital course. Thank you for allowing me to see Elvin Stewart. If there are any questions, please do not hesitate to call. DO RADHA Davenport/ , 07:00 PM , 08:56 PM
[2017-12-05] MEDS ORDERED: INSULIN DETEMIR 100 UNITS/ML VIAL SQ SCH (21:00)
[2017-12-06] VITALS (25 sets, daily range): BP systolic 138–179; BP diastolic 65–85; PULSE 58–101; RESP 20; TEMP 98–99.8; O2SAT 93–98
[2017-12-06] MEDS: MORPHINE SULFATE 4 MG/ML INJ IV PUSH PRN ×7 (02:54→23:00)
[2017-12-06] MEDS: cloNIDine HCL 0.1 MG TAB PO PRN ×2 (03:01→23:39)
[2017-12-06] MEDS: hydrALAZINE HCL 100 MG TAB PO SCH ×3 (06:13→22:13)
[2017-12-06] MEDS: ISOSORBIDE MONONITRATE 30 MG CR TAB (IMDUR) PO SCH (06:14)
[2017-12-06 06:17] LABS: ALBUMIN 2.9 GM/DL (3.4-5.0); ALKALINE PHOSPHATASE 93 U/L (45-117); ALT (GPT) 28 U/L (12-78); AST (GOT) 16 U/L (15-37); BICARBONATE 26.6 MEQ/L (21.0-32.0); BLOOD UREA NITROGEN 27 MG/DL (7-18); CALCIUM 8.9 MG/DL (8.5-10.1); CHLORIDE 105 MEQ/L (98-107); CHOLESTEROL 87 MG/DL (120-200); CHOLESTEROL/ HDL RATIO 1.88 RATIO; CREATININE 1.81 MG/DL (0.60-1.30); GLOMERULAR FILTRATION RATE 47 ML/MIN (>89); GLUCOSE,RANDOM 133 MG/DL (74-106); HDL CHOLESTEROL 46.1 MG/DL (40.0-60.0); LDL CHOLESTEROL 19 MG/DL (0-99); SODIUM (NA) 141 MEQ/L (136-145); TOTAL BILIRUBIN ADULT 0.7 MG/DL (0.2-1.0); TOTAL PROTEIN 6.9 GM/DL (6.4-8.2); TRIGLYCERIDES 111 MG/DL (42-150)
[2017-12-06] MEDS: INSULIN ASPART 1,000 UNITS/10 ML VIAL SQ SCH ×3 (08:00→17:00)
[2017-12-06] MEDS: INSULIN ASPART SUPPLEMENTAL SCALE SQ SCH ×4 (08:00→20:03)
[2017-12-06] MEDS: INSULIN DETEMIR 100 UNITS/ML VIAL SQ SCH ×2 (09:00→20:03)
--- NOTE | 2017-12-06 09:00 | PD.CONS ---
HPI Service Nephrology Consult Requested By Dr. Soriano Reason for Consult Chronic kidney disease with uncontrolled hypertension Primary Care Physician Keenan Gresham MD History of Present Illness Patient is a 62-year-old -[place] male with history of hypertension since in his 20s, he stated his mother may have hypertension, denies any kidney problems in the family, he has significant peripheral vascular disease abdominal aortic aneurysm stent, he has left femoropopliteal bypass, has coronary artery disease with stent, he states that he has no dysuria or burning or any prostate problems, denies having kidney stones in the past. Blood pressure has been running high and I been asked to consider renal artery stenosis however his creatinine is elevated and he cannot do CTA, he is admitted with chest pain radiation to his jaw. CTA done in 2012 showed partial covered left renal artery with stent and also right renal artery but both has blood flow. Review of Systems Constitutional: COMPLAINS OF: Fatigue Cardiovascular: COMPLAINS OF: Chest pain Musculoskeletal: COMPLAINS OF: Joint pain, Stiffness, Back pain Integumentary: DENIES: Abnormal pigmentation, Nail changes, Pruritus, Rash Hematologic/lymphatic: DENIES: Bruising, Lymphadenopathy Immunologic/allergic: DENIES: Eczema, Urticaria Neurologic: DENIES: Abnormal gait, Headache, Localized weakness, Paresthesias, Seizures, Speech Problems, Tremor, Poor Balance Psychiatric: DENIES: Anxiety, Confusion, Mood changes, Depression, Hallucinations, Agitation, Suicidal Ideation, Homicidal Ideation, Delusions Past Family Social History Allergies: Coded Allergies: benazepril (Verified Allergy, Severe, ANGIOEDEMA, 12/05/17) captopril (Verified Allergy, Severe, ANGIOEDEMA, 12/05/17) enalaprilat (Verified Allergy, Severe, 12/05/17) ANGIOEDEMA fosinopril (Verified Allergy, Severe, ANGIOEDEMA, 12/05/17) lisinopril (Verified Allergy, Severe, ANGIOEDEMA, 12/05/17) quinapril (Verified Allergy, Severe, ANGIOEDEMA, 12/05/17) hydromorphone (Verified Adverse Reaction, Intermediate, ITCHING, 12/05/17) Past Medical History Diabetes Hypertension Chronic kidney disease Coronary artery disease Peripheral vascular disease Hyperlipidemia Obesity GERBER Past Surgical History Coronary artery stent Left-sided femoropopliteal bypass Abdominal aortic aneurysm stent Physical Exam Vital Signs Vital Signs Date Time Temp Pulse Resp B/P (MAP) Pulse Ox O2 Delivery O2 Flow Rate FiO2 12/06/17 08:00 60 12/06/17 07:30 98.2 96 20 148/85 (106) 95 12/06/17 07:30 58 12/06/17 06:00 60 12/06/17 05:10 60 12/06/17 04:00 61 12/06/17 03:00 98.0 64 20 171/70 (103) 97 12/06/17 03:00 60 12/06/17 02:00 76 12/06/17 01:00 76 12/06/17 00:00 63 12/05/17 23:18 62 176/84 (114) 97 12/05/17 23:02 98.2 62 18 181/87 (118) 97 12/05/17 23:00 75 12/05/17 22:00 72 12/05/17 21:00 75 12/05/17 20:00 78 12/05/17 20:00 98.0 72 18 207/95 (132) 96 12/05/17 19:00 72 12/05/17 18:00 73 12/05/17 17:00 74 12/05/17 16:00 72 12/05/17 15:05 70 158/79 12/05/17 15:00 98.0 65 18 158/79 (105) 98 12/05/17 15:00 63 12/05/17 14:00 65 12/05/17 13:50 63 182/79 12/05/17 13:45 97.8 63 16 182/79 (113) 97 12/05/17 13:00 67 12/05/17 12:35 63 12/05/17 11:35 56 18 182/96 (124) 93 12/05/17 11:32 58 12/05/17 10:55 18 12/05/17 10:00 54 12/05/17 09:50 97 Nasal Cannula 1.50 12/05/17 09:22 65 12/05/17 09:15 58 167/87 12/05/17 09:00 58 150/96 Laboratory Laboratory Tests Test 12/05/17 09:24 12/05/17 14:18 12/06/17 05:15 Troponin I 0.07 0.07 Blood Urea Nitrogen 27 Creatinine 1.81 Random Glucose 133 Total Protein 6.9 Albumin 2.9 Calcium Level 8.9 Alkaline Phosphatase 93 Aspartate Amino Transf (AST/SGOT) 16 Alanine Aminotransferase (ALT/SGPT) 28 Total Bilirubin 0.7 Sodium Level 141 Potassium Level 4.0 Chloride Level 105 Carbon Dioxide Level 26.6 Anion Gap 9 Estimat Glomerular Filtration Rate 47 Triglycerides Level 111 Cholesterol Level 87 LDL Cholesterol 19 HDL Cholesterol 46.1 Cholesterol/HDL Ratio 1.88 Result Diagram: 12/05/17 0215 12/06/17 0515 Assessment and Plan Problem List: (1) Ornln-wf-vaadplm kidney injury ICD Codes: N17.9 - Acute kidney failure, unspecified; N18.9 - Chronic kidney disease, unspecified Plan: patient has previous stent in the aorta and not suitable for MRI, he is also allergic to DAWIT inhibitors and also not suitable to get a nuclear scan. Get a baseline kidney ultrasound at this stage to rule out renal artery stenosis as his creatinine is 1.8 with underlying diabetes that he is at high risk for contrast-induced nephropathy We will wait to see the kidney size work up for SPEP, UPEP, NENO , C3 C 4 ordered. Continue to monitor (2) History of coronary artery disease ICD Codes: Z86.79 - Personal history of other diseases of the circulatory system Status: Acute Plan: Patient has previous stent (3) Hypertensive crisis ICD Codes: I16.9 - Hypertensive crisis, unspecified Status: Acute Plan: Monitor blood pressure last 1 148/85 (4) DM (diabetes mellitus) ICD Codes: E11.9 - Diabetes mellitus Status: Chronic Problem Qualifiers (1) DM (diabetes mellitus): Edilma Aguilar MD December 06, 2017 09:00
[2017-12-06] MEDS: ATORVASTATIN 80 MG TAB PO SCH (09:16)
[2017-12-06] MEDS: HYDROCHLOROTHIAZIDE 12.5 MG CAP PO SCH ×2 (09:16→17:02)
[2017-12-06] MEDS: NIFEdipine 60 MG SUSTAINED RELEASE TAB PO SCH ×2 (09:16→20:02)
[2017-12-06] MEDS: LOSARTAN 50 MG TAB PO SCH (09:16)
[2017-12-06] MEDS: APIXABAN 5 MG TABLET PO SCH ×2 (09:16→20:03)
[2017-12-06] MEDS: CARVEDILOL 12.5 MG TAB PO SCH ×2 (09:17→20:03)
[2017-12-06] MEDS: SODIUM CHLORIDE 0.9% FLUSH 10 ML FLUSH IV FLUSH SCH ×2 (09:17→20:02)
[2017-12-06 10:32] LABS: COMPLEMENT C4 33 MG/DL (10-40)
--- NOTE | 2017-12-06 11:56 | PD.CARD.PN ---
Subjective Subjective Remarks No events overnight, weaned off nitro drip No chest pain Chronic back pain Objective Medications Current Medications Medications (Trade) Dose Ordered Sig/Conchita Route Start Time Stop Time Status Last Admin (NS Flush) 2 ml UNSCH PRN IV FLUSH 12/05/17 03:45 12/05/17 13:37 (NS Flush) 2 ml BID IV FLUSH 12/05/17 09:00 12/06/17 09:17 (Tylenol) 650 mg Q4H PRN PO 12/05/17 03:45 (Zofran Odt) 4 mg Q6H PRN PO 12/05/17 04:15 (Narcan Inj) 0.4 mg UNSCH PRN IV PUSH 12/05/17 03:45 (Milk Of Magnesia Liq) 30 ml Q12H PRN PO 12/05/17 03:45 (Senokot) 17.2 mg Q12H PRN PO 12/05/17 03:45 (Dulcolax Supp) 10 mg DAILY PRN RECTAL 12/05/17 03:45 (Lactulose Liq) 30 ml DAILY PRN PO 12/05/17 03:45 (Eliquis) 5 mg BID PO 12/05/17 09:00 12/06/17 09:16 (Apresoline) 100 mg Q8HR PO 12/05/17 06:00 12/06/17 06:13 (Imdur) 90 mg DAILY@0700 PO 12/05/17 07:00 12/06/17 06:14 (Cozaar) 100 mg DAILY PO 12/05/17 09:00 12/06/17 09:16 (Procardia Xl) 60 mg Q12HR PO 12/05/17 09:00 12/06/17 09:16 (Ambien) 10 mg HS PRN PO 12/05/17 03:45 (Lipitor) 80 mg DAILY PO 12/05/17 09:00 12/06/17 09:16 (NovoLOG INJ) 7 units TIDAC SQ 12/05/17 08:00 12/06/17 11:46 (D50w (Vial) Inj) 50 ml UNSCH PRN IV PUSH 12/05/17 03:45 (Glucagon Inj) 1 mg UNSCH PRN OTHER 12/05/17 03:45 (NovoLOG SUPPLEMENTAL SCALE) 1 ACHS SLIDING SCALE SQ 12/05/17 08:00 12/06/17 11:46 ([place] 7.5-325 Mg) 1 tab Q6H PRN PO 12/05/17 05:00 (Morphine Inj) 4 mg Q3H PRN IV PUSH 12/05/17 05:00 12/06/17 09:17 (Levemir Inj) 15 units BID SQ 12/05/17 09:00 12/06/17 09:00 (Catapres) 0.1 mg Q6H PRN PO 12/05/17 05:30 12/06/17 03:01 (Coreg) 25 mg Q12HR PO 12/05/17 12:30 12/06/17 09:17 (Microzide) 12.5 mg BID@ PO 12/05/17 12:30 12/06/17 09:16 Vital Signs / I&O Vital Signs Date Time Temp Pulse Resp B/P (MAP) Pulse Ox O2 Delivery O2 Flow Rate FiO2 12/06/17 11:00 98.0 98 20 158/73 (101) 98 12/06/17 11:00 65 12/06/17 10:00 75 12/06/17 09:00 93 12/06/17 08:00 60 12/06/17 07:30 98.2 96 20 148/85 (106) 95 12/06/17 07:30 58 12/06/17 06:00 60 12/06/17 05:10 60 12/06/17 04:00 61 12/06/17 03:00 98.0 64 20 171/70 (103) 97 12/06/17 03:00 60 12/06/17 02:00 76 12/06/17 01:00 76 12/06/17 00:00 63 12/05/17 23:18 62 176/84 (114) 97 12/05/17 23:02 98.2 62 18 181/87 (118) 97 12/05/17 23:00 75 12/05/17 22:00 72 12/05/17 21:00 75 12/05/17 20:00 78 12/05/17 20:00 98.0 72 18 207/95 (132) 96 12/05/17 19:00 72 12/05/17 18:00 73 12/05/17 17:00 74 12/05/17 16:00 72 12/05/17 15:05 70 158/79 12/05/17 15:00 98.0 65 18 158/79 (105) 98 12/05/17 15:00 63 12/05/17 14:00 65 12/05/17 13:50 63 182/79 12/05/17 13:45 97.8 63 16 182/79 (113) 97 12/05/17 13:00 67 12/05/17 12:35 63 I/O 12/05/17 12/05/17 12/05/17 12/06/17 12/06/17 12/06/17 07:00 15:00 23:00 07:00 15:00 23:00 Intake Total 500 ml 480 ml 420 ml Output Total 800 ml Balance 500 ml -320 ml 420 ml Intake Oral 480 ml 420 ml IV Total 500 ml Output Urine Total 800 ml # Voids 3 Physical Exam GENERAL: NAD, AAOx3 SKIN: Warm and dry. HEAD: Atraumatic. Normocephalic. EYES: Pupils equal and round. No scleral icterus. No injection or drainage. ENT: No nasal bleeding or discharge. Mucous membranes pink and moist. NECK: Trachea midline. No JVD. CARDIOVASCULAR: Regular rate and rhythm. RESPIRATORY: No accessory muscle use. Clear to auscultation. Breath sounds equal bilaterally. GASTROINTESTINAL: Abdomen soft, non-tender, nondistended. Hepatic and splenic margins not palpable. MUSCULOSKELETAL: Extremities without clubbing, cyanosis, or edema. No obvious deformities. NEUROLOGICAL: Awake and alert. No obvious cranial nerve deficits. Motor grossly within normal limits. Five out of 5 muscle strength in the arms and legs. Normal speech. PSYCHIATRIC: Appropriate mood and affect; insight and judgment normal. Laboratory Laboratory Tests Test 12/05/17 14:18 12/06/17 05:15 12/06/17 09:45 Troponin I 0.07 NG/ML Blood Urea Nitrogen 27 MG/DL Creatinine 1.81 MG/DL Random Glucose 133 MG/DL Total Protein 6.9 GM/DL Albumin 2.9 GM/DL Calcium Level 8.9 MG/DL Alkaline Phosphatase 93 U/L Aspartate Amino Transf (AST/SGOT) 16 U/L Alanine Aminotransferase (ALT/SGPT) 28 U/L Total Bilirubin 0.7 MG/DL Sodium Level 141 MEQ/L Potassium Level 4.0 MEQ/L Chloride Level 105 MEQ/L Carbon Dioxide Level 26.6 MEQ/L Anion Gap 9 MEQ/L Estimat Glomerular Filtration Rate 47 ML/MIN Triglycerides Level 111 MG/DL Cholesterol Level 87 MG/DL LDL Cholesterol 19 MG/DL HDL Cholesterol 46.1 MG/DL Cholesterol/HDL Ratio 1.88 RATIO Complement C3 128 MG/DL Complement C4 33 MG/DL Assessment and Plan Problem List: (1) Hypertensive crisis ICD Codes: I16.9 - Hypertensive crisis, unspecified Status: Acute (2) HTN (hypertension) ICD Codes: I10 - Essential (primary) hypertension Status: Acute (3) Stented coronary artery ICD Codes: Z95.5 - Presence of coronary angioplasty implant and graft Status: Acute (4) H/O abdominal aortic aneurysm repair ICD Codes: Z98.89 - Other specified postprocedural states Status: Chronic (5) Chronic back pain ICD Codes: G89.29 - Other chronic pain; M54.9 - Chronic back pain Status: Chronic (6) DM (diabetes mellitus) ICD Codes: E11.9 - Diabetes mellitus Status: Chronic (7) Obesity ICD Codes: E66.9 - Obesity Status: Chronic (8) Gfpxd-ho-vtblqub kidney injury ICD Codes: N17.9 - Acute kidney failure, unspecified; N18.9 - Chronic kidney disease, unspecified Assessment and Plan 1) HTN urgency/Accelerated HTN Blood pressure better controlled Off nitro drip 2) CKD with deterioration of kidney function Appreciate nephrology consult Agree with renal artery stenosis evaluation 3) Elevated trop Chronic in nature, most likely due to LVH, CKD and elevated blood pressure Previous cath showing no significant CAD Con't medical management 4) 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
--- NOTE | 2017-12-06 12:23 | HHI.PR ---
Subjective Remarks awake and alert no complains of pain,nausea or vomiting or shortness of breath Objective Vitals Vital Signs Date Time Temp Pulse Resp B/P (MAP) Pulse Ox O2 Delivery O2 Flow Rate FiO2 12/06/17 11:00 98.0 98 20 158/73 (101) 98 12/06/17 11:00 65 12/06/17 10:00 75 12/06/17 09:00 93 12/06/17 08:00 60 12/06/17 07:30 98.2 96 20 148/85 (106) 95 12/06/17 07:30 58 12/06/17 06:00 60 12/06/17 05:10 60 12/06/17 04:00 61 12/06/17 03:00 98.0 64 20 171/70 (103) 97 12/06/17 03:00 60 12/06/17 02:00 76 12/06/17 01:00 76 12/06/17 00:00 63 12/05/17 23:18 62 176/84 (114) 97 12/05/17 23:02 98.2 62 18 181/87 (118) 97 12/05/17 23:00 75 12/05/17 22:00 72 12/05/17 21:00 75 12/05/17 20:00 78 12/05/17 20:00 98.0 72 18 207/95 (132) 96 12/05/17 19:00 72 12/05/17 18:00 73 12/05/17 17:00 74 12/05/17 16:00 72 12/05/17 15:05 70 158/79 12/05/17 15:00 98.0 65 18 158/79 (105) 98 12/05/17 15:00 63 12/05/17 14:00 65 12/05/17 13:50 63 182/79 12/05/17 13:45 97.8 63 16 182/79 (113) 97 12/05/17 13:00 67 12/05/17 12:35 63 I/O 12/05/17 12/05/17 12/05/17 12/06/17 12/06/17 12/06/17 07:00 15:00 23:00 07:00 15:00 23:00 Intake Total 500 ml 480 ml 420 ml Output Total 800 ml Balance 500 ml -320 ml 420 ml Intake Oral 480 ml 420 ml IV Total 500 ml Output Urine Total 800 ml # Voids 3 Result Diagram: 12/05/17 0215 12/06/17 0515 Imaging Last Impressions Chest X-Ray 12/05/17 0208 Signed Impressions: Service Date/Time: Tuesday, December 05, 2017 02:22 - CONCLUSION: Stable scarring in the lingula with no acute cardiopulmonary disease. Eugene Nelson MD Objective Remarks awake and alert, no acute distress anicteric no nuchal rigidty decrease breath sounds, no rales regular rhythm abdomen soft, nontender, globular, soft + pretibial edema good peripheral pulses A/P Problem List: (1) Accelerated hypertension ICD Code: I10 - Essential (primary) hypertension Status: Acute (2) History of DVT (deep vein thrombosis) ICD Code: Z86.718 - Personal history of other venous thrombosis and embolism Status: Acute (3) CAD (coronary artery disease) ICD Code: I25.10 - Atherosclerotic heart disease of [place] coronary artery without angina pectoris Status: Chronic Assessment and Plan Mr. William is a pleasant 62-year-old -Iranian male with a history of hypertension, coronary artery disease, PVD who presents to the emergency department due to left-sided chest discomfort that lasted for several hours. Patient also was found to have high blood pressure systolic 220. Chest pain -Likely atypical and related to accelerated hypertension. Accelerated hypertension History fo CAD Hyperlipidemia BP better readings SBP now down in 150 troponin negative continue hydralazine 100 mg every 8 hours, isosorbide mononitrate 90 mg daily , losartan 100 mg daily, nifedipine 60 mg every 12 hours., HCTZ 12.5 mg po bid, Procardia 60 mg XL bid, coreg 25 mg po bid. statins Clonidine 0.1mg Q6hrs PRN. cardiology ff Diabetes mellitus- good readings -Levemir 15 units BID, medium sliding scale insulin, aspart 7 units 3 times daily before meals. -Patient takes 62 units of Lantus BID at home advise and reinforced diet and compliance CKD Stage III creatinine trending down - Dr. Lugo ff- for Renal ultrasound- bilateral echogenic kidneys nephrology ff History of DVT -patient continues to take apixaban 5 milligrams twice daily Full code. Apixaban 5 mg twice daily encourage patient to up and ambualte around his room and monitor tolerance patient states working on weight reduction exercise as tolerated Elsa Turk MD December 06, 2017 12:22
--- NOTE | 2017-12-06 12:36 | RADRPT ---
EXAM DATE: 12/06/2017 12:28 PM EDT AGE/SEX: 62 years / Male INDICATIONS: Increased BUN/creatinine. CLINICAL DATA: This is the patient's initial encounter. Patient reports that signs and symptoms have been present for 1 day and indicates a pain score of 0/10. MEDICAL/SURGICAL HISTORY: Deep venous thrombosis. Cerebrovascular accident. Hypertension. Coron amanda artery disease. Anticoagulant therapy. Sleep apnea. Pancreatitis. Chronic kidney disease. Diabete s. Anemia. Blood dyscrasias. Cholecystectomy. Cardiac catheterization with stent placement. Abdomina l aortic aneurysm repair. Left Hip replacement. Insulin pump removal. [place] [facility] [place]. . MEASUREMENTS: Right Kidney:__ 10.8 x 5.7 x 2.4 cm cm Left Kidney:__ 10.5 x 5.7 x 5.1 cm cm FINDINGS: Right Kidney: Mildly increased cortical echogenicity. Dominant renal cyst in the midpole measuring ap proximately 8 mm Left Kidney: Mild increased cortical echogenicity. Dominant cortical cyst in the upper pole measuring 2.1 cm Bladder: Within normal limits given the degree of distension. CONCLUSION: 1. Increased cortical echogenicity bilaterally characteristic of some degree of medical renal diseas e. 2. Benign-appearing bilateral renal cortical cysts. Electronically signed by: Min Wiggins MD 12/06/2017 12:35 PM EDT
[2017-12-06 17:03] LABS: HEMOGLOBIN A1C 10.2 % (4.3-6.0)
[2017-12-06 22:26] LABS: ALB/GLOB RATIO (SPE) 1.07 (1.39-2.23)
[2017-12-06] MEDS: ZOLPIDEM TARTRATE 10 MG TAB PO PRN (23:00)
[2017-12-07] VITALS (21 sets, daily range): BP systolic 135–166; BP diastolic 61–88; PULSE 64–85; RESP 18–22; TEMP 97.8–98.9; O2SAT 5–96
[2017-12-07] MEDS: hydrALAZINE HCL 100 MG TAB PO SCH ×3 (05:45→21:52)
[2017-12-07] MEDS: ISOSORBIDE MONONITRATE 30 MG CR TAB (IMDUR) PO SCH (05:45)
[2017-12-07] MEDS: MORPHINE SULFATE 4 MG/ML INJ IV PUSH PRN ×7 (05:46→21:53)
[2017-12-07] MEDS: INSULIN ASPART SUPPLEMENTAL SCALE SQ SCH ×4 (08:00→21:00)
[2017-12-07] MEDS: INSULIN ASPART 1,000 UNITS/10 ML VIAL SQ SCH ×3 (08:00→16:42)
[2017-12-07] MEDS: INSULIN DETEMIR 100 UNITS/ML VIAL SQ SCH ×2 (08:57→21:00)
[2017-12-07] MEDS: ATORVASTATIN 80 MG TAB PO SCH (08:58)
[2017-12-07] MEDS: NIFEdipine 60 MG SUSTAINED RELEASE TAB PO SCH ×2 (08:58→20:29)
[2017-12-07] MEDS: APIXABAN 5 MG TABLET PO SCH ×2 (08:58→20:29)
[2017-12-07] MEDS: LOSARTAN 50 MG TAB PO SCH (08:58)
[2017-12-07] MEDS: HYDROCHLOROTHIAZIDE 12.5 MG CAP PO SCH ×2 (08:58→16:43)
[2017-12-07] MEDS: CARVEDILOL 12.5 MG TAB PO SCH ×2 (08:58→20:29)
[2017-12-07] MEDS: SODIUM CHLORIDE 0.9% FLUSH 10 ML FLUSH IV FLUSH SCH ×2 (08:59→20:30)
[2017-12-07] MEDS ORDERED: HYDR12.57 PO (09:19)
[2017-12-07] MEDS: NITROGLYCERIN 0.4 MG SL 25 TABS/BTL SL PRN ×3 (13:39→14:22)
--- NOTE | 2017-12-07 17:34 | HHI.NPPN ---
Subjective History of Present Illness Patient with peripheral vascular disease in aortic stent possible renal artery stenosis Objective Data Data 12/07/17 12/08/17 19:00 07:00 Intake Total 720 ml Output Total 650 ml Balance 70 ml Intake Oral 720 ml Output Urine Total 650 ml # Bowel Movements 0 Vital Signs Date Time Temp Pulse Resp B/P (MAP) Pulse Ox O2 Delivery O2 Flow Rate FiO2 12/07/17 17:00 83 12/07/17 16:00 70 12/07/17 15:00 97.8 67 18 138/70 (92) 96 12/07/17 15:00 78 12/07/17 14:00 64 12/07/17 13:00 66 12/07/17 12:00 75 12/07/17 11:00 69 12/07/17 11:00 98.0 85 20 135/65 (88) 94 12/07/17 10:00 75 12/07/17 09:00 78 12/07/17 08:00 78 12/07/17 07:15 98.9 85 20 136/61 (86) 93 12/07/17 07:15 93 Room Air 12/07/17 07:15 85 12/07/17 06:00 64 12/07/17 05:51 20 12/07/17 05:00 69 12/07/17 04:00 82 12/07/17 04:00 98.9 84 18 149/69 (95) 94 12/07/17 04:00 Room Air 12/07/17 03:00 78 12/07/17 02:00 78 12/07/17 01:00 80 12/07/17 01:00 142/88 (106) 12/07/17 00:00 21 12/07/17 00:00 80 12/06/17 23:35 Room Air 12/06/17 23:35 99.0 78 20 179/84 (115) 94 12/06/17 23:00 82 12/06/17 22:00 74 12/06/17 21:00 74 12/06/17 20:00 80 12/06/17 20:00 99.8 79 20 177/77 (110) 93 12/06/17 20:00 Room Air 12/06/17 19:00 74 12/06/17 18:00 87 -: 12/05/17 0215 12/06/17 0515 Physical Exam General Appearance: Well Developed, Well Nourished Neck Neck Exam: Neck Supple Pulmonary Resp Exam: Clear Bilaterally, Breath Sounds Equal Cardiology CV Exam: Regular, Normal Sinus Rhythm Gastrointestinal/Abdomen GI Exam: Soft, Non-Tender, Bowel Sounds Present Extremeties Extremities Exam: No Edema Assessment/Plan Problem List: (1) Ydfrw-rb-etuygfh kidney injury ICD Codes: N17.9 - Acute kidney failure, unspecified; N18.9 - Chronic kidney disease, unspecified Plan: patient has previous stent in the aorta and not suitable for MRI, he is also allergic to DAWIT inhibitors and also not suitable to get a nuclear scan. kidney ultrasound showed bilateral echogenic kidneys cyst Hydrate him overnight follow BMP and CTA with contrast discussed he is very reluctant to do as there is a risk of ARF will re evaluate in am Continue to monitor (2) History of coronary artery disease ICD Codes: Z86.79 - Personal history of other diseases of the circulatory system Status: Acute Plan: Patient has previous stent (3) Hypertensive crisis ICD Codes: I16.9 - Hypertensive crisis, unspecified Status: Acute Plan: Monitor blood pressure (4) DM (diabetes mellitus) ICD Codes: E11.9 - Diabetes mellitus Status: Chronic Problem Qualifiers (1) DM (diabetes mellitus): Edilma Aguilar MD December 07, 2017 17:34
[2017-12-07] MEDS: SODIUM CHLOR 0.9% 1000 ML INJ 1,000 ML IV SCH (17:45)
[2017-12-07] MEDS: SENNOSIDES 8.6 MG TAB PO PRN (20:32)
[2017-12-07] MEDS: ZOLPIDEM TARTRATE 10 MG TAB PO PRN (21:52)
[2017-12-08] VITALS (18 sets, daily range): BP systolic 125–163; BP diastolic 60–74; PULSE 61–88; RESP 18–20; TEMP 98.1–98.6; O2SAT 89–97
[2017-12-08] MEDS: MORPHINE SULFATE 4 MG/ML INJ IV PUSH PRN ×8 (01:34→21:11)
[2017-12-08 03:58] LABS: BICARBONATE 26.4 MEQ/L (21.0-32.0); CALCIUM 8.5 MG/DL (8.5-10.1); CREATININE 2.09 MG/DL (0.60-1.30)
[2017-12-08 04:01] LABS: TROPONIN I 0.04 NG/ML (0.02-0.05)
[2017-12-08] MEDS: hydrALAZINE HCL 100 MG TAB PO SCH ×3 (05:53→21:02)
[2017-12-08] MEDS: ISOSORBIDE MONONITRATE 30 MG CR TAB (IMDUR) PO SCH (06:03)
[2017-12-08] MEDS: APIXABAN 5 MG TABLET PO SCH ×2 (08:45→21:02)
[2017-12-08] MEDS: HYDROCHLOROTHIAZIDE 12.5 MG CAP PO SCH ×2 (08:45→17:35)
[2017-12-08] MEDS: NIFEdipine 60 MG SUSTAINED RELEASE TAB PO SCH ×2 (08:45→21:02)
[2017-12-08] MEDS: INSULIN ASPART 1,000 UNITS/10 ML VIAL SQ SCH ×3 (08:46→17:31)
[2017-12-08] MEDS: ATORVASTATIN 80 MG TAB PO SCH (08:46)
[2017-12-08] MEDS: LOSARTAN 50 MG TAB PO SCH (08:46)
[2017-12-08] MEDS: CARVEDILOL 12.5 MG TAB PO SCH ×2 (08:47→21:02)
[2017-12-08] MEDS: SODIUM CHLORIDE 0.9% FLUSH 10 ML FLUSH IV FLUSH SCH ×2 (08:47→21:00)
[2017-12-08] MEDS: INSULIN ASPART SUPPLEMENTAL SCALE SQ SCH ×4 (08:47→23:00)
[2017-12-08] MEDS: INSULIN DETEMIR 100 UNITS/ML VIAL SQ SCH ×2 (08:48→23:00)
[2017-12-08] MEDS: SODIUM CHLOR 0.9% 1000 ML INJ 1,000 ML IV SCH (08:48)
[2017-12-08] MEDS: SENNOSIDES 8.6 MG TAB PO PRN (09:00)
--- NOTE | 2017-12-08 12:14 | HHI.PR ---
Subjective Remarks late entry notes from 12/07 BP better no complains of chest discomfort voiding Objective Vitals Vital Signs Date Time Temp Pulse Resp B/P (MAP) Pulse Ox O2 Delivery O2 Flow Rate FiO2 12/08/17 06:00 78 12/08/17 05:58 22 12/08/17 05:25 83 12/08/17 03:00 98.6 69 20 148/69 (95) 89 12/08/17 03:00 69 12/07/17 23:00 98.6 66 22 140/65 (90) 94 12/07/17 23:00 66 12/07/17 20:00 93 Room Air 12/07/17 19:00 69 12/07/17 19:00 98.2 69 20 166/75 (105) 5 12/07/17 18:00 69 12/07/17 17:00 83 12/07/17 16:00 70 12/07/17 15:00 97.8 67 18 138/70 (92) 96 12/07/17 15:00 78 12/07/17 14:00 64 12/07/17 13:00 66 I/O 12/07/17 12/07/17 12/07/17 12/08/17 12/08/17 12/08/17 07:00 15:00 23:00 07:00 15:00 23:00 Intake Total 240 ml 720 ml 1276 ml Output Total 650 ml Balance 240 ml 70 ml 1276 ml Intake Oral 240 ml 720 ml 440 ml IV Total 836 ml Output Urine Total 650 ml # Voids 2 # Bowel Movements 0 1 Result Diagram: 12/05/17 0215 12/08/17 0233 Imaging Last Impressions Renal Ultrasound 12/06/17 0000 Signed Impressions: CONCLUSION: 1. Increased cortical echogenicity bilaterally characteristic of some degree o f medical renal disease. 2. Benign-appearing bilateral renal cortical cysts. Chest X-Ray 12/05/17 0208 Signed Impressions: Service Date/Time: Tuesday, December 05, 2017 02:22 - CONCLUSION: Stable scarring in the lingula with no acute cardiopulmonary disease. Eugene Nelson MD Objective Remarks awake and alert, no acute distress anicteric no nuchal rigidty decrease breath sounds, no rales regular rhythm abdomen soft, nontender, globular, soft + pretibial edema good peripheral pulses A/P Problem List: (1) Accelerated hypertension ICD Code: I10 - Essential (primary) hypertension Status: Acute (2) History of DVT (deep vein thrombosis) ICD Code: Z86.718 - Personal history of other venous thrombosis and embolism Status: Acute (3) CAD (coronary artery disease) ICD Code: I25.10 - Atherosclerotic heart disease of [place] coronary artery without angina pectoris Status: Chronic Assessment and Plan Mr. William is a pleasant 62-year-old -[place]rit[place] male with a history of hypertension, coronary artery disease, PVD who presents to the emergency department due to left-sided chest discomfort that lasted for several hours. Patient also was found to have high blood pressure systolic 220. Chest pain -Likely atypical and related to accelerated hypertension. Accelerated hypertension History fo CAD Hyperlipidemia BP better readings SBP now down in 150 troponin negative continue hydralazine 100 mg every 8 hours, isosorbide mononitrate 90 mg daily , losartan 100 mg daily, nifedipine 60 mg every 12 hours., HCTZ 12.5 mg po bid, Procardia 60 mg XL bid, coreg 25 mg po bid. statins Clonidine 0.1mg Q6hrs PRN. cardiology ff - medical management nephrology ff Diabetes mellitus- good readings -Levemir 15 units BID, medium sliding scale insulin, aspart 7 units 3 times daily before meals. -Patient takes 62 units of Lantus BID at home advise and reinforced diet and compliance CKD Stage III- r/o JEANNE creatinine trending down - Dr. Lugo ff- for Renal ultrasound- bilateral echogenic kidneys, planning work up for JEANNE but would require CTA nephrology ff History of DVT -patient continues to take apixaban 5 milligrams twice daily History fo chronic pain - on Lortabl Full code. Apixaban 5 mg twice daily encourage patient to up and ambualte around his room and monitor tolerance patient states working on weight reduction exercise as tolerated Elsa Turk MD December 08, 2017 12:14
--- NOTE | 2017-12-08 12:22 | HHI.PR ---
Subjective Remarks patient up side of the bed denies any chest discomfort or shortness of breath says history of chronic pain- ff by pain managment- on percoet 10 per patient good po voiding last evening- apparently complained of chest pain given Morphine Objective Vitals Vital Signs Date Time Temp Pulse Resp B/P (MAP) Pulse Ox O2 Delivery O2 Flow Rate FiO2 12/08/17 06:00 78 12/08/17 05:58 22 12/08/17 05:25 83 12/08/17 03:00 98.6 69 20 148/69 (95) 89 12/08/17 03:00 69 12/07/17 23:00 98.6 66 22 140/65 (90) 94 12/07/17 23:00 66 12/07/17 20:00 93 Room Air 12/07/17 19:00 69 12/07/17 19:00 98.2 69 20 166/75 (105) 5 12/07/17 18:00 69 12/07/17 17:00 83 12/07/17 16:00 70 12/07/17 15:00 97.8 67 18 138/70 (92) 96 12/07/17 15:00 78 12/07/17 14:00 64 12/07/17 13:00 66 I/O 12/07/17 12/07/17 12/07/17 12/08/17 12/08/17 12/08/17 07:00 15:00 23:00 07:00 15:00 23:00 Intake Total 240 ml 720 ml 1276 ml Output Total 650 ml Balance 240 ml 70 ml 1276 ml Intake Oral 240 ml 720 ml 440 ml IV Total 836 ml Output Urine Total 650 ml # Voids 2 # Bowel Movements 0 1 Result Diagram: 12/05/17 0215 12/08/17 0233 Imaging Last Impressions Renal Ultrasound 12/06/17 0000 Signed Impressions: CONCLUSION: 1. Increased cortical echogenicity bilaterally characteristic of some degree o f medical renal disease. 2. Benign-appearing bilateral renal cortical cysts. Chest X-Ray 12/05/17 0208 Signed Impressions: Service Date/Time: Tuesday, December 05, 2017 02:22 - CONCLUSION: Stable scarring in the lingula with no acute cardiopulmonary disease. Eugene Nelson MD Objective Remarks awake and alert, no acute distress anicteric no nuchal rigidty decrease breath sounds, no rales regular rhythm abdomen soft, nontender, globular, soft no edema good peripheral pulses A/P Problem List: (1) Accelerated hypertension ICD Code: I10 - Essential (primary) hypertension Status: Acute (2) History of DVT (deep vein thrombosis) ICD Code: Z86.718 - Personal history of other venous thrombosis and embolism Status: Acute (3) CAD (coronary artery disease) ICD Code: I25.10 - Atherosclerotic heart disease of [place] coronary artery without angina pectoris Status: Chronic Assessment and Plan Mr. William is a pleasant 62-year-old -[place] male with a history of hypertension, coronary artery disease, PVD who presents to the emergency department due to left-sided chest discomfort that lasted for several hours. Patient also was found to have high blood pressure systolic 220. Chest pain -Likely atypical and related to accelerated hypertension.- BP better but still complained of intermittent pain last evening- requiring Morphine Accelerated hypertension History fo CAD Hyperlipidemia BP better readings SBP now down in 150 troponin negative continue hydralazine 100 mg every 8 hours, isosorbide mononitrate 90 mg daily , losartan 100 mg daily, nifedipine 60 mg every 12 hours., HCTZ 12.5 mg po bid, Procardia 60 mg XL bid, coreg 25 mg po bid. statins Clonidine 0.1mg Q6hrs PRN. cardiology ff - medical management will reconsult Dr. Bob- ? should we proceed with myocardial perfusion study ? for atypical pain Diabetes mellitus- good readings 160s hemoglobin a1c 10.6 -Levemir 15 units BID, medium sliding scale insulin, aspart 7 units 3 times daily before meals.. continue and adjust -Patient takes 62 units of Lantus BID at home advise and reinforced diet and compliance CKD Stage III- r/o JEANNE creatinine trending down - Dr. Lugo ff- for Renal ultrasound- bilateral echogenic kidneys, planning work up for JEANNE but would require CTA nephrology ff continue current IVF History of DVT -patient continues to take apixaban 5 milligrams twice daily History fo chronic pain - on Lortabl- now astates Percocet works better Full code. Apixaban 5 mg twice daily encourage patient to up and ambualte around his room and monitor tolerance patient states working on weight reduction exercise as tolerated Elsa Turk MD December 08, 2017 12:22
[2017-12-08] MEDS ORDERED: oxyCODONE/ACETAMINOPHEN 10 MG/325 MG TAB PO PRN (12:30)
--- NOTE | 2017-12-08 15:46 | HHI.NPPN ---
Subjective History of Present Illness Patient with peripheral vascular disease in aortic stent possible renal artery stenosis Objective Data Data Vital Signs Date Time Temp Pulse Resp B/P (MAP) Pulse Ox O2 Delivery O2 Flow Rate FiO2 12/08/17 14:00 70 12/08/17 13:00 64 12/08/17 12:00 68 12/08/17 11:30 70 12/08/17 11:30 98.5 70 20 125/60 (81) 94 12/08/17 11:00 64 12/08/17 10:00 70 12/08/17 09:00 72 12/08/17 08:00 88 12/08/17 07:00 98.1 75 20 152/72 (98) 96 12/08/17 07:00 96 Room Air 12/08/17 07:00 61 12/08/17 06:00 78 12/08/17 05:58 22 12/08/17 05:25 83 12/08/17 03:00 98.6 69 20 148/69 (95) 89 12/08/17 03:00 69 12/07/17 23:00 98.6 66 22 140/65 (90) 94 12/07/17 23:00 66 12/07/17 20:00 93 Room Air 12/07/17 19:00 69 12/07/17 19:00 98.2 69 20 166/75 (105) 5 12/07/17 18:00 69 12/07/17 17:00 83 12/07/17 16:00 70 -: 12/05/17 0215 12/08/17 0233 Physical Exam General Appearance: Well Developed, Well Nourished Neck Neck Exam: Neck Supple Pulmonary Resp Exam: Clear Bilaterally, Breath Sounds Equal Cardiology CV Exam: Regular, Normal Sinus Rhythm Gastrointestinal/Abdomen GI Exam: Soft, Non-Tender, Bowel Sounds Present Extremeties Extremities Exam: No Edema Assessment/Plan Problem List: (1) Gfwhr-eo-ywiquyc kidney injury ICD Codes: N17.9 - Acute kidney failure, unspecified; N18.9 - Chronic kidney disease, unspecified Plan: patient has previous stent in the aorta and not suitable for MRI, he is also allergic to DAWIT inhibitors and also not suitable to get a nuclear scan. kidney ultrasound showed bilateral echogenic kidneys cyst CTA with contrast cannot be done as CKD Proteinuria 6.7 gm Cr 2.09 dc IVF continue to monitor he need fu with Nephrology on ARB Continue to monitor (2) History of coronary artery disease ICD Codes: Z86.79 - Personal history of other diseases of the circulatory system Status: Acute Plan: Patient has previous stent (3) Hypertensive crisis ICD Codes: I16.9 - Hypertensive crisis, unspecified Status: Acute Plan: Monitor blood pressure (4) DM (diabetes mellitus) ICD Codes: E11.9 - Diabetes mellitus Status: Chronic Problem Qualifiers (1) DM (diabetes mellitus): Edilma Aguilar MD December 08, 2017 15:46
[2017-12-08] MEDS: DOCUSATE SODIUM 100 MG CAP PO SCH ×2 (17:33→21:02)
--- NOTE | 2017-12-08 19:33 | EKG ---
Date Performed: 12/07/2017 Time Performed: 08:04:02 PTAGE: 62 years EKG: Sinus rhythm . Poor R wave progression - probable normal variant Inferior T wave changes are nonspecific [place] e ECG Compared to PREVIOUS TRACING , the patient is no longer bracycardic. PREVIOUS TRACIN12/05/2017 01. 57 DOCTOR: Betsy Murdock Interpretating Date/Time 12/08/2017 19:31:11
[2017-12-09] VITALS (12 sets, daily range): BP systolic 127–175; BP diastolic 61–79; PULSE 54–85; RESP 16–18; TEMP 97.9–98.8; O2SAT 92–96
[2017-12-09] MEDS: MORPHINE SULFATE 4 MG/ML INJ IV PUSH PRN ×3 (00:29→05:10)
[2017-12-09] MEDS: ZOLPIDEM TARTRATE 10 MG TAB PO PRN (00:30)
[2017-12-09] MEDS: hydrALAZINE HCL 100 MG TAB PO SCH ×2 (06:00→13:26)
[2017-12-09] MEDS: ISOSORBIDE MONONITRATE 30 MG CR TAB (IMDUR) PO SCH (06:35)
--- NOTE | 2017-12-09 08:12 | HHI.PR ---
Subjective Remarks Pt complaining of back pain. admits to having chronic back pain and sees a pain specialist as an outpatient. Pt denies any nausea or vomiting. Admits to not having a credit associate he follows as an outpatient. He does have a primary care physician. discussed w RN, pt has been only requesting IV morphine and refuses po pain meds , claiming they don't help. Objective Vitals Vital Signs Date Time Temp Pulse Resp B/P (MAP) Pulse Ox O2 Delivery O2 Flow Rate FiO2 12/09/17 06:00 54 12/09/17 05:15 15 12/09/17 03:00 97.9 77 18 159/72 (101) 92 12/09/17 03:00 77 12/08/17 23:00 74 12/08/17 23:00 96 Room Air 12/08/17 23:00 98.5 74 20 158/72 (100) 96 12/08/17 19:00 97 Room Air 12/08/17 19:00 73 12/08/17 19:00 98.6 73 18 163/74 (103) 97 12/08/17 18:00 70 12/08/17 17:00 74 12/08/17 15:50 70 12/08/17 15:50 98.4 70 20 145/71 (95) 94 12/08/17 15:00 72 12/08/17 14:00 70 12/08/17 13:00 64 12/08/17 12:00 68 12/08/17 11:30 70 12/08/17 11:30 98.5 70 20 125/60 (81) 94 12/08/17 11:00 64 12/08/17 10:00 70 12/08/17 09:00 72 12/08/17 08:00 88 I/O 12/08/17 12/08/17 12/08/17 12/09/17 12/09/17 12/09/17 07:00 15:00 23:00 07:00 15:00 23:00 Intake Total 1276 ml 1606 ml 400 ml Balance 1276 ml 1606 ml 400 ml Intake Oral 440 ml 840 ml 400 ml IV Total 836 ml 766 ml # Voids 2 3 3 # Bowel Movements 1 0 0 Result Diagram: 12/05/175 12/08/17 0233 Imaging Last Impressions Renal Ultrasound 12/06/17 0000 Signed Impressions: CONCLUSION: 1. Increased cortical echogenicity bilaterally characteristic of some degree o f medical renal disease. 2. Benign-appearing bilateral renal cortical cysts. Chest X-Ray 12/05/17 0208 Signed Impressions: Service Date/Time: Tuesday, December 05, 2017 02:22 - CONCLUSION: Stable scarring in the lingula with no acute cardiopulmonary disease. Eugene Nelson MD Objective Remarks awake and alert, no acute distress laying on his abdomen. decrease breath sounds, no wheezing regular rhythm abdomen soft, nontender, obese no edema moves his extremities and is able to roll on the side for me to examine him A/P Problem List: (1) Accelerated hypertension ICD Code: I10 - Essential (primary) hypertension Status: Acute (2) History of DVT (deep vein thrombosis) ICD Code: Z86.718 - Personal history of other venous thrombosis and embolism Status: Acute (3) CAD (coronary artery disease) ICD Code: I25.10 - Atherosclerotic heart disease of [place] coronary artery without angina pectoris Status: Chronic Assessment and Plan Mr. William is a pleasant 62-year-old -Malagasy male with a history of hypertension, coronary artery disease, PVD who presents to the emergency department due to left-sided chest discomfort that lasted for several hours. Patient also was found to have high blood pressure systolic 220. Chest pain -Likely atypical and related to accelerated hypertension.- BP still elevated in the 160's this morning Accelerated hypertension History fo CAD Hyperlipidemia Labile BP's in the 160's this morning. troponin negative continue hydralazine 100 mg every 8 hours, isosorbide mononitrate 90 mg daily , losartan 100 mg daily, nifedipine 60 mg every 12 hours., HCTZ 12.5 mg po bid, Procardia 60 mg XL bid, coreg 25 mg po bid. I have added clonidine 0.1mg po BID scheduled. continue statins Clonidine 0.1mg Q6hrs PRN. cardiology ff - medical management. per knife machine operator note, Dr. Ponce, Previous cath showing no significant CAD Diabetes mellitus- good readings 160s hemoglobin a1c 10.6 -Levemir 15 units BID, medium sliding scale insulin, aspart 7 units 3 times daily before meals.. continue and adjust -Patient takes 62 units of Lantus BID at home advise and reinforced diet and compliance CKD Stage III- r/o JEANNE creatinine trending down - Dr. Lugo ff- for Renal ultrasound- bilateral echogenic kidneys, planning work up for JEANNE but would require CTA nephrology ff nephrology has d/c IVF History of DVT -patient continues to take apixaban 5 milligrams twice daily History fo chronic pain - on Lortabs which has been switched to Percocet while in the hospital, per notes, "works better" however per RN, hasn't taken any. I have encouraged him to take the tablets and stop using the IV morphine. Pt understands that he must follow up w his house painter helper for adjustment of his chronic pains. Pt voices his understanding. Full code. Apixaban 5 mg twice daily Discharge Planning Pt has been ambulating in his room. BP's in the 160's. I have adjusted his BP meds. If BP improved and less than 150 's, will d/c home if ok w nephrology. Pt understands that he must f/u w nephrology as an outpatient and pt also understands that his chest pain is not cardiac in nature per knife machine operator and could be related to his chronic pain. Pt understands that he must adhere to a heart healthy diet and have better BP control. He does have mildly elevated trop which is chronic in nature, most likely due to LVH, CKD and elevated blood pressure. Anticipate d/c later today heart healthy diet, f/u w PCP, knife machine operator, credit associate and pain medical laboratory scientist as an outpatient. activity Naa Wilhelm MD December 09, 2017 08:12
[2017-12-09] MEDS ORDERED: CLON0.1T PO (08:14)
--- NOTE | 2017-12-09 08:14 | HHI.DS ---
Discharge Summary Admission Date December 05, 2017 at 03:43 Discharge Date: December 09, 2017 Admitting Diagnosis chest pain/acs; accelerated HTN; renal insufficiency (1) Accelerated hypertension ICD Code: I10 - Essential (primary) hypertension Status: Acute (2) History of DVT (deep vein thrombosis) ICD Code: Z86.718 - Personal history of other venous thrombosis and embolism Status: Acute (3) CAD (coronary artery disease) ICD Code: I25.10 - Atherosclerotic heart disease of [place] coronary artery without angina pectoris Status: Chronic Procedures none Brief History - From Admission Mr. William is a 62-year-old -[place] male with a history of hypertension , CKD, PVD who presents to the emergency department due to left-sided chest pain that started around 10 PM on 12/04/2017. Patient describes his chest pain is localized to his left side of the chest without any radiation to the neck jaw or arms. There was no nausea vomiting or diaphoresis. In the ED he was found to have high blood pressure, highest being 226/90. Patient also complains of low back pain. Shortness of breath, abdominal pain. No changes in bladder or bowel habits. CBC/BMP: 12/05/17 0215 12/08/17 0233 Significant Findings Laboratory Tests Test 12/06/17 09:45 12/07/17 17:00 12/08/17 02:33 Albumin 3.36 GM/DL (3.50-5.00) Albumin/Globulin Ratio 1.07 (1.39-2.23) Urine Random Total Protein 323 MG/DL (0-11.8) Urine Total Protein 24 Hour 6791 MG/24HR (0-150) Urine Protein/Creatinine Ratio 3.94 (0.00-0.14) Blood Urea Nitrogen 35 MG/DL (7-18) Creatinine 2.09 MG/DL (0.60-1.30) Random Glucose 125 MG/DL (74-106) Estimat Glomerular Filtration Rate 39 ML/MIN (>89) Imaging Last Impressions Renal Ultrasound 12/06/17 0000 Signed Impressions: CONCLUSION: 1. Increased cortical echogenicity bilaterally characteristic of some degree o f medical renal disease. 2. Benign-appearing bilateral renal cortical cysts. Chest X-Ray 12/05/17 0208 Signed Impressions: Service Date/Time: Tuesday, December 05, 2017 02:22 - CONCLUSION: Stable scarring in the lingula with no acute cardiopulmonary disease. Eugene Nelson MD PE at Discharge awake and alert, no acute distress laying on his abdomen. decrease breath sounds, no wheezing regular rhythm abdomen soft, nontender, obese no edema moves his extremities and is able to roll on the side for me to examine him Hospital Course Mr. William is a pleasant 62-year-old -[place] male with a history of hypertension, coronary artery disease, PVD who presents to the emergency department due to left-sided chest discomfort that lasted for several hours. Patient also was found to have high blood pressure systolic 220. Pt was evaluated by cardiology who felt that the chest pain was not cardiac in nature, as previous cardiac cath didn't show any significant CAD and recommendations was for medical management and better BP control. Nephrology also evaluated the patient for her CKD Stage III- Dr. Lugo ff- for Renal ultrasound- bilateral echogenic kidneys, planning work up for JEANNE but would require CTA. Pt will need outpatient f/u w nephrology. Pt was instructed t continue hydralazine 100 mg every 8 hours, isosorbide mononitrate 90 mg daily, losartan 100 mg daily, nifedipine 60 mg every 12 hours. , HCTZ 12.5 mg po bid, Procardia 60 mg XL bid, coreg 25 mg po bid. I have added clonidine 0.1mg po BID scheduled. BP was much better controlled after the addition of clonidine. continue statins History fo chronic pain - Pt understands that he must follow up w his shipyard painter helper for adjustment of his chronic pains. Pt voices his understanding. Pt Condition on Discharge: Stable Discharge Disposition: Discharge Home Discharge Time: > 30 minutes Discharge Instructions DIET: Follow Instructions for: Heart Healthy Diet, Diabetic Diet Activities you can perform: Weight Bearing as Jazmine Follow up Referrals: Cardiology - 2 Weeks Nephrology - 2 Weeks with [facility] PCP Follow-up - 3-5 Days with [place] doctors New Medications: Clonidine (Clonidine) 0.1 Mg Tab 0.1 MG PO BID for Blood Pressure Management, #60 TAB 0 Refills Hydrochlorothiazide (Hydrochlorothiazide) 12.5 Mg Cap 12.5 MG PO BID@09,18 for HTN for 30 Days, CAP Continued Medications: Apixaban (Eliquis) 5 Mg Tab 5 MG PO BID for Blood Clot Prevention, #60 TAB 0 Refills Carvedilol (Coreg) 25 Mg Tab 25 MG PO BID, #60 TAB 0 Refills Ezetimibe (Zetia) 10 Mg Tab 10 MG PO DAILY, #30 TAB 0 Refills Gabapentin (Gabapentin) 800 Mg Tab 800 MG PO TID for Pain Management, #90 TAB 0 Refills Hydralazine (Hydralazine) 100 Mg Tab 100 MG PO Q8H for Blood Pressure Management, #90 TAB Insulin Glargine Inj (Lantus Inj) 1,000 Unit/10 Ml Vial 62 UNITS SQ BID for Blood Sugar Management, VIAL 0 Refills Insulin Human Regular Inj (Novolin R Inj) 1,000 Unit/10 Ml Vial 0 SQ TIDACHS for Blood Sugar Management, #10 ML 0 Refills Sliding Scale As Directed. Isosorbide Mononitrate ER (Isosorbide Mononitrate ER) 60 Mg Tab 90 MG PO DAILY@07 for Chest pain, #90 TAB 3 Refills Losartan (Cozaar) 50 Mg Tab 100 MG PO DAILY for HTN, #30 TAB Nifedipine ER 24 HR (Nifedipine ER 24 HR) 60 Mg Tab 60 MG PO Q12HR for Blood Pressure Management, #60 TAB 4 Refills Rosuvastatin (Crestor) 40 Mg Tab 40 MG PO DAILY for Cholesterol Management, #30 TAB 0 Refills Rotigotine Patch 24 HR (Neupro Patch 24 HR) 3 Mg/24 Hr Patch 3 MG T-DERMAL DAILY for Parkinson Disease Mgmt, PATCH 0 Refills Zolpidem (Ambien) 10 Mg Tab 10 MG PO HS PRN for INSOMNIA, TAB 0 Refills Discontinued Medications: Furosemide (Lasix) 20 Mg Tab 20 MG PO DAILY, #30 TAB 0 Refills Naa Arndt MD December 09, 2017 08:14
[2017-12-09] MEDS ORDERED: cloNIDine HCL 0.1 MG TAB PO SCH (09:00)
[2017-12-09] MEDS: ATORVASTATIN 80 MG TAB PO SCH (09:19)
[2017-12-09] MEDS: NIFEdipine 60 MG SUSTAINED RELEASE TAB PO SCH (09:19)
[2017-12-09] MEDS: DOCUSATE SODIUM 100 MG CAP PO SCH (09:20)
[2017-12-09] MEDS: CARVEDILOL 12.5 MG TAB PO SCH (09:20)
[2017-12-09] MEDS: HYDROCHLOROTHIAZIDE 12.5 MG CAP PO SCH (09:22)
[2017-12-09] MEDS: APIXABAN 5 MG TABLET PO SCH (09:22)
[2017-12-09] MEDS: LOSARTAN 50 MG TAB PO SCH (09:22)
[2017-12-09] MEDS: SODIUM CHLORIDE 0.9% FLUSH 10 ML FLUSH IV FLUSH SCH (09:23)
[2017-12-09] MEDS: INSULIN ASPART 1,000 UNITS/10 ML VIAL SQ SCH ×2 (09:24→12:00)
[2017-12-09] MEDS: INSULIN DETEMIR 100 UNITS/ML VIAL SQ SCH (09:25)
[2017-12-09] MEDS: INSULIN ASPART SUPPLEMENTAL SCALE SQ SCH ×2 (09:25→12:00)
--- NOTE | 2017-12-09 12:24 | HHI.NPPN ---
Subjective History of Present Illness Patient with peripheral vascular disease in aortic stent possible renal artery stenosis Objective Data Data Vital Signs Date Time Temp Pulse Resp B/P (MAP) Pulse Ox O2 Delivery O2 Flow Rate FiO2 12/09/17 12:00 60 12/09/17 11:20 98.8 60 16 137/69 (91) 95 12/09/17 11:00 61 12/09/17 10:00 68 12/09/17 09:00 78 12/09/17 08:00 80 12/09/17 07:30 96 Room Air 12/09/17 07:00 76 12/09/17 07:00 98.7 85 16 175/79 (111) 96 12/09/17 06:00 54 12/09/17 05:15 15 12/09/17 03:00 97.9 77 18 159/72 (101) 92 12/09/17 03:00 77 12/08/17 23:00 74 12/08/17 23:00 96 Room Air 12/08/17 23:00 98.5 74 20 158/72 (100) 96 12/08/17 19:00 97 Room Air 12/08/17 19:00 73 12/08/17 19:00 98.6 73 18 163/74 (103) 97 12/08/17 18:00 70 12/08/17 17:00 74 12/08/17 15:50 70 12/08/17 15:50 98.4 70 20 145/71 (95) 94 12/08/17 15:00 72 12/08/17 14:00 70 12/08/17 13:00 64 -: 12/05/17 0215 12/08/17 0233 Physical Exam General Appearance: Well Developed, Well Nourished Neck Neck Exam: Neck Supple Pulmonary Resp Exam: Clear Bilaterally, Breath Sounds Equal Cardiology CV Exam: Regular, Normal Sinus Rhythm Gastrointestinal/Abdomen GI Exam: Soft, Non-Tender, Bowel Sounds Present Extremeties Extremities Exam: No Edema Assessment/Plan Problem List: (1) [id number] kidney injury ICD Codes: N17.9 - Acute kidney failure, unspecified; N18.9 - Chronic kidney disease, unspecified Plan: patient has previous stent in the aorta and not suitable for MRI, he is also allergic to DAWIT inhibitors and also not suitable to get a nuclear scan. kidney ultrasound showed bilateral echogenic kidneys cyst CTA with contrast cannot be done as CKD Proteinuria 6.7 gm Cr 2.09 BP better he can be followed as out patient he need fu with Nephrology on ARB Continue to monitor (2) History of coronary artery disease ICD Codes: Z86.79 - Personal history of other diseases of the circulatory system Status: Acute Plan: Patient has previous stent (3) Hypertensive crisis ICD Codes: I16.9 - Hypertensive crisis, unspecified Status: Acute Plan: Monitor blood pressure (4) DM (diabetes mellitus) ICD Codes: E11.9 - Diabetes mellitus Status: Chronic Problem Qualifiers (1) DM (diabetes mellitus): Edilma Aguilar MD December 09, 2017 12:24
== END 2017-12-09 16:10 | disposition home or self-care (01) | DRG 305 ==
LOC: NEPC 01:09 → NEDA 03:43 → HCVI 07:15 → HCPC 13:40
PROVIDERS: ADMIT Hospitalist; ATTEND Hospitalist
DX: I16.0 Hypertensive urgency (principal); E11.51 Type 2 diabetes mellitus with diabetic peripheral angiopathy without gangrene; E11.22 Type 2 diabetes mellitus with diabetic chronic kidney disease; N17.9 Acute kidney failure, unspecified; N18.3 Chronic kidney disease, stage 3 (moderate); Z79.4 Long term (current) use of insulin; I12.9 Hypertensive chronic kidney disease with stage 1 through stage 4 chronic kidney disease, or unspecified chronic kidney disease; I25.10 Atherosclerotic heart disease of native coronary artery without angina pectoris; Z95.5 Presence of coronary angioplasty implant and graft; Z79.82 Long term (current) use of aspirin; Z79.02 Long term (current) use of antithrombotics/antiplatelets; I73.9 Peripheral vascular disease, unspecified; E66.9 Obesity, unspecified; Z86.718 Personal history of other venous thrombosis and embolism; Z68.38 Body mass index [BMI] 38.0-38.9, adult; G89.29 Other chronic pain; E78.5 Hyperlipidemia, unspecified; G47.33 Obstructive sleep apnea (adult) (pediatric); Z96.642 Presence of left artificial hip joint; Z87.891 Personal history of nicotine dependence
CPT/HCPCS: 71046; 76775; 80048; 80053; 80061; 81050; 82550; 82552; 82570; 82948; 83036; 83735; 84156; 84165; 84166; 84484; 85025; 85610; 85730; 86038; 86160; 93005; 96361; 96374; J1815; J2270; J7030; J7040

== ENCOUNTER 2017-12-28 07:24 | Emergency (ER) | payer OTHER, MEDICAID ==
[~2017-12-28 07:24] MED LIST changes: +CLON0.1T PO; -FURO1TAB62 PO; +HYDR12.57 PO
[2017-12-28 07:34] VITALS: BP 179/84; PULSE 65; RESP 17; TEMP 98.1; O2SAT 99
[2017-12-28 07:52] VITALS: BP 166/84; PULSE 60; RESP 20; O2SAT 96
[2017-12-28] MEDS ORDERED: ASPI81CH6 CHEW (08:04)
[2017-12-28 08:10] VITALS: O2SAT 97
[2017-12-28] MEDS ORDERED: ORPHENADRINE INJ 60 MG/2 ML AMP IM ONE (08:30)
--- NOTE | 2017-12-28 08:35 | PD ---
HPI Chief Complaint: Chest Pain Time Seen by Provider: 08:06 Travel History International Travel<30 days: No Contact w/Intl Traveler<30days: No Traveled to known affect area: No History of Present Illness HPI 62-year-old male complains of left-sided chest pain. Patient states that the pain started about an hour prior to arrival. Patient states the chest pain is aching pain localized to left chest. Patient denies any pain radiation. Patient denies palpitation. Patient states that he has history of chronic low back pain that is not new. Patient is on pain management for the back pain. Patient is taking pain patch and Lortab for the back pain. Patient has history of hypertension, CAD status post stent placement, patient on Eliquis, history of abdominal aortic aneurysm repair, diabetes, obesity and chronic kidney disease. Patient was admitted to [facility] December 05 and discharged December 09 of this year for chest pain and accelerated hypertension. Cardiology consultation was obtained. Chest pain was found to be noncardiac. Patient has recent cardiac cath done in March 2017 which showed no significant CAD. Medical management was recommended. PFSH Past Medical History Hx Anticoagulant Therapy: Yes AAA: Yes (JUL 2011/ ) Anemia: Yes Arthritis: No Asthma: No Autoimmune Disease: No Blood Disorders: Yes (SICKLE CELL TRAIT) Anxiety: No Depression: No Heart Rhythm Problems: No Cancer: No Cardiac Catheterization: Yes (2016) Cardiovascular Problems: Yes High Cholesterol: No Chemotherapy: No Chest Pain: Yes (2011 and 2013. ) Congestive Heart Failure: No COPD: No Cerebrovascular Accident: Yes Coronary Artery Disease: Yes Diabetes: Yes Patient Takes Glucophage: No Diminished Hearing: No Deep Vein Thrombosis: Yes (LT LEG) Endocrine: Yes GERD: No Glaucoma: No Genitourinary: Yes Headaches: No Hepatitis: No Hiatal Hernia: No Heparin Induced Thrombocytopen: No Hypertension: Yes Immune Disorder: No Implanted Vascular Access Dvce: Yes (RIGHT INSULIN PUMP removed) Kidney Stones: No Musculoskeletal: Yes Neurologic: No Psychiatric: No Reproductive: No Respiratory: No Immunizations Current: Yes Migraines: No Myocardial Infarction: No Pancreatitis: Yes Radiation Therapy: No Renal Failure: No Seizures: No Sickle Cell Disease: Yes (Sickle Cell trait, but not active.) Sleep Apnea: Yes Thyroid Disease: Yes Ulcer: No PNEUMOCCOCAL Vaccine (Year): 3 Past Surgical History Abdominal Aneurysm Repair: Yes (2012) Abdominal Surgery: Yes (Cholecystectomy 1997) AICD: No Appendectomy: No Arteriovenous Shunt: No Body Medical Devices: STENTS Cardiac Surgery: Yes (Stents X5, 2 in 2011 and 3 in 2013.) Cholecystectomy: Yes Coronary Artery Bypass Graft: No Coronary Stent: Yes (2009 X 2, 2010 X2) Ear Surgery: No Endocrine Surgery: No Eye Surgery: No Genitourinary Surgery: No Gynecologic Surgery: No Insulin Pump: Yes (removed) Joint Replacement: Yes (Left hip) Neurologic Surgery: No Oral Surgery: Yes ([place] teeth removed ) Pacemaker: No Thoracic Surgery: No Other Surgery: Yes (GB REMOVED) Family History Family Myocardial Infarction: No Social History Alcohol Use: No Tobacco Use: No (QUIT 2005) Substance Use: Yes (Cocain, marajuana. Stopped 20 years ago.) Allergies-Medications (Allergen,Severity, Reaction): Coded Allergies: benazepril (Verified Allergy, Severe, ANGIOEDEMA, 12/28/17) captopril (Verified Allergy, Severe, ANGIOEDEMA, 12/28/17) enalaprilat (Verified Allergy, Severe, 12/28/17) ANGIOEDEMA fosinopril (Verified Allergy, Severe, ANGIOEDEMA, 12/28/17) lisinopril (Verified Allergy, Severe, ANGIOEDEMA, 12/28/17) quinapril (Verified Allergy, Severe, ANGIOEDEMA, 12/28/17) hydromorphone (Verified Adverse Reaction, Intermediate, ITCHING, 12/28/17) Reported Meds & Prescriptions Reported Meds & Active Scripts Active Clonidine (Clonidine HCl) 0.1 Mg Tab 0.1 Mg PO BID Hydrochlorothiazide 12.5 Mg Cap 12.5 Mg PO BID@,18 30 Days Nifedipine ER 24 HR (Nifedipine) 60 Mg Tab 60 Mg PO Q12HR Isosorbide Mononitrate ER (Isosorbide Mononitrate) 60 Mg Tab 90 Mg PO DAILY@07 Hydralazine (Hydralazine HCl) 100 Mg Tab 100 Mg PO Q8H Cozaar (Losartan Potassium) 50 Mg Tab 100 Mg PO DAILY Reported Aspirin Low Dose (Aspirin) 81 Mg Chew 81 Mg CHEW DAILY Lantus Inj (Insulin Glargine) 1,000 Unit/10 Ml Vial 62 Units SQ BID Gabapentin 800 Mg Tab 800 Mg PO TID Crestor (Rosuvastatin Calcium) 40 Mg Tab 40 Mg PO DAILY Eliquis (Apixaban) 5 Mg Tab 5 Mg PO BID Zetia (Ezetimibe) 10 Mg Tab 10 Mg PO DAILY Neupro Patch 24 HR (Rotigotine Patch 24 HR) 3 Mg/24 Hr Patch 3 Mg T-DERMAL DAILY Ambien (Zolpidem Tartrate) 10 Mg Tab 10 Mg PO HS PRN Novolin R Inj (Insulin Human Regular) 1,000 Unit/10 Ml Vial 0 SQ TIDACHS Sliding Scale As Directed. Nitroglycerin SL (Nitroglycerin) 0.4 Mg Subl 0.4 Mg SL DIRECTED PRN ONE TABLET UNDER THE TONGUE NEEDED FOR CHEST PAIN, MAY REPEAT EVERY FIVE MINUTES FOR A TOTAL OF 3 DOSES OR CALL 911 IF NO RELIEF Coreg (Carvedilol) 25 Mg Tab 25 Mg PO BID Review of Systems General / Constitutional: No: Fever Eyes: No: Visual changes HENT: No: Headaches Cardiovascular: Positive: Chest Pain or Discomfort Respiratory: No: Shortness of Breath Gastrointestinal: No: Abdominal Pain Genitourinary: No: Dysuria Musculoskeletal: No: Pain Skin: No Rash Neurologic: No: Weakness Psychiatric: No: Depression Endocrine: No: Polydipsia Hematologic/Lymphatic: No: Easy Bruising Physical Exam Narrative GENERAL: Well-nourished, well-developed patient. SKIN: Focused skin assessment warm/dry. HEAD: Normocephalic. EYES: No scleral icterus. No injection or drainage. NECK: Supple, trachea midline. No JVD or lymphadenopathy. CARDIOVASCULAR: Regular rate and rhythm without murmurs, gallops, or rubs. RESPIRATORY: Breath sounds equal bilaterally. No accessory muscle use. GASTROINTESTINAL: Abdomen soft, non-tender, nondistended. MUSCULOSKELETAL: No cyanosis, or edema. BACK: Moderate tenderness in palpation lumbar area, without obvious deformity. No CVA tenderness. Neurologic exam normal. Data Data Last Documented VS Vital Signs Date Time Temp Pulse Resp B/P (MAP) Pulse Ox O2 Delivery O2 Flow Rate FiO2 12/28/17 07:52 60 20 96 Room Air 12/28/17 07:52 166/84 (111) 12/28/17 07:34 98.1 Orders Orders Electrocardiogram (12/28/17 08:22) Complete Blood Count With Diff (12/28/17 08:22) Comprehensive Metabolic Panel (12/28/17 08:22) Creatine Kinase (Cpk) (12/28/17 08:22) Troponin I (12/28/17 08:22) Prothrombin Time / Inr (Pt) (12/28/17 08:22) Act Partial Throm Time (Ptt) (12/28/17 08:22) Chest, Single Ap (12/28/17 08:22) Iv Access Insert/Monitor (12/28/17 08:22) Ecg Monitoring (12/28/17 08:22) Oximetry (12/28/17 08:22) Orphenadrine Inj (Norflex Inj) (12/28/17 08:30) Labs Laboratory Tests Test 12/28/17 08:20 White Blood Count 7.0 TH/MM3 Red Blood Count 4.68 MIL/MM3 Hemoglobin 11.6 GM/DL Hematocrit 35.1 % Mean Corpuscular Volume 74.8 FL Mean Corpuscular Hemoglobin 24.8 PG Mean Corpuscular Hemoglobin Concent 33.1 % Red Cell Distribution Width 20.4 % Platelet Count 229 TH/MM3 Mean Platelet Volume 8.4 FL Neutrophils (%) (Auto) 65.7 % Lymphocytes (%) (Auto) 22.0 % Monocytes (%) (Auto) 9.7 % Eosinophils (%) (Auto) 1.9 % Basophils (%) (Auto) 0.7 % Neutrophils # (Auto) 4.6 TH/MM3 Lymphocytes # (Auto) 1.6 TH/MM3 Monocytes # (Auto) 0.7 TH/MM3 Eosinophils # (Auto) 0.1 TH/MM3 Basophils # (Auto) 0.1 TH/MM3 CBC Comment DIFF FINAL Differential Comment Prothrombin Time 10.0 SEC Prothromb Time International Ratio 1.0 RATIO Activated Partial Thromboplast Time 22.7 SEC Blood Urea Nitrogen 41 MG/DL Creatinine 1.96 MG/DL Random Glucose 188 MG/DL Total Protein 7.1 GM/DL Albumin 2.6 GM/DL Calcium Level 8.8 MG/DL Alkaline Phosphatase 107 U/L Aspartate Amino Transf (AST/SGOT) 27 U/L Alanine Aminotransferase (ALT/SGPT) 26 U/L Total Bilirubin 0.3 MG/DL Sodium Level 140 MEQ/L Potassium Level 4.9 MEQ/L Chloride Level 106 MEQ/L Carbon Dioxide Level 23.8 MEQ/L Anion Gap 10 MEQ/L Estimat Glomerular Filtration Rate 42 ML/MIN Total Creatine Kinase 207 U/L Troponin I 0.03 NG/ML MDM Medical Decision Making Medical Screen Exam Complete: Yes Emergency Medical Condition: Yes Interpretation(s) 9:52 AM. EKG shows sinus rhythm nonspecific ST-T wave change. Last Impressions Chest X-Ray 12/28/17 0822 Signed Impressions: CONCLUSION: 1. Minimal bibasilar streakiness consistent with probable atelectasis. 2. Stable cardiomegaly. 9:52 AM. CBC with WBC 7.0. Hemoglobin 11.6 hematocrit 35.1. MCV 74.8. BUN 41. Creatinine 1.96. Troponin 0 0.03. Differential Diagnosis Differential diagnosis including atypical chest pain, musculoskeletal, angina, NC, PE, pneumothorax. Narrative Course 62-year-old male with chest pain. History of recurrent chest pain. Diagnosis Primary Impression: Atypical chest pain Patient Instructions: General Instructions Additional Instructions: Continue with medication as needed for pain. Follow-up with personal physician. Return if increasing chest pain or shortness of breath. Med/Other Pt SpecificInfo: No Change to Meds Paul Montano MD Dec 28, 2017 08:35
[2017-12-28 08:49] LABS: AUTOMATED NEUTROPHIL # 4.6 TH/MM3 (1.8-7.7); BASOPHIL # 0.1 TH/MM3 (0-0.2); BASOPHIL % 0.7 % (0.0-2.0); EOSINOPHIL # 0.1 TH/MM3 (0-0.4); EOSINOPHIL % 1.9 % (0.0-4.0); HEMATOCRIT 35.1 % (39.0-51.0); HEMOGLOBIN 11.6 GM/DL (13.0-17.0); LYMPHOCYTE # 1.6 TH/MM3 (1.0-4.8); MEAN CELL VOLUME 74.8 FL (80.0-100.0); MEAN CORPUSCULAR HEMOGLOBIN 24.8 PG (27.0-34.0); MEAN CORPUSCULAR HGB CONC 33.1 % (32.0-36.0); MEAN PLATELET VOLUME 8.4 FL (7.0-11.0); MONO % 9.7 % (0.0-8.0); MONOCYTE # 0.7 TH/MM3 (0-0.9); NEUT % 65.7 % (16.0-70.0); PLATELET COUNT 229 TH/MM3 (150-450); RED BLOOD COUNT 4.68 MIL/MM3 (4.50-5.90); RED CELL DISTRIBUTION WIDTH 20.4 % (11.6-17.2)
[2017-12-28 09:09] LABS: ALT (GPT) 26 U/L (12-78)
[2017-12-28 09:29] LABS: ALBUMIN 2.6 GM/DL (3.4-5.0); ALKALINE PHOSPHATASE 107 U/L (45-117); BICARBONATE 23.8 MEQ/L (21.0-32.0); BLOOD UREA NITROGEN 41 MG/DL (7-18); CALCIUM 8.8 MG/DL (8.5-10.1); CHLORIDE 106 MEQ/L (98-107); CREATININE 1.96 MG/DL (0.60-1.30); GLOMERULAR FILTRATION RATE 42 ML/MIN (>89); GLUCOSE,RANDOM 188 MG/DL (74-106); SODIUM (NA) 140 MEQ/L (136-145); TOTAL BILIRUBIN ADULT 0.3 MG/DL (0.2-1.0); TOTAL PROTEIN 7.1 GM/DL (6.4-8.2); TROPONIN I 0.03 NG/ML (0.02-0.05)
[2017-12-28 09:30] LABS: AST (GOT) 27 U/L (15-37)
--- NOTE | 2017-12-28 09:31 | RADRPT ---
EXAM DATE: 12/28/2017 9:19 AM EDT AGE/SEX: 62 years / Male INDICATIONS: Chest pain this morning. CLINICAL DATA: This is the patient's initial encounter. Patient reports that signs and symptoms have been present for 1 day and indicates a pain score of 8/10. MEDICAL/SURGICAL HISTORY: Hypertension. Deep venous thrombosis. Pancreatitis. Diabetes. Fransico nary artery disease. Coronary artery stent. Cholecystectomy. Abdominal aortic aneurysm repair. COMPARISON: [facility], CHEST SINGLE AP, 11/22/2017. . FINDINGS: The heart is mildly prominent but stable. Minimal streakiness is noted within lung bases consistent w ith probable atelectasis. No pulmonary edema is noted. No alveolar consolidation is noted. CONCLUSION: 1. Minimal bibasilar streakiness consistent with probable atelectasis. 2. Stable cardiomegaly. Electronically signed by: Willie Watkins MD 12/28/2017 9:30 AM EDT
[2017-12-28 10:20] VITALS: BP 164/72
--- NOTE | 2017-12-28 18:29 | EKG ---
Date Performed: 12/28/2017 Time Performed: 07:44:56 PTAGE: 62 years EKG: SINUS BRADYCARDIA BORDERLINE ECG PREVIOUS TRACING : 12/07/2017 08.04 Since the previous tracing, no significant change noted DOCTOR: Betsy Murdock Interpretating Date/Time 12/28/2017 18:27:51
== END 2017-12-28 10:24 | disposition home or self-care (01) ==
LOC: NEPC 07:24
DX: R07.89 Other chest pain (principal); R94.31 Abnormal electrocardiogram [ECG] [EKG]; I25.10 Atherosclerotic heart disease of native coronary artery without angina pectoris; I12.9 Hypertensive chronic kidney disease with stage 1 through stage 4 chronic kidney disease, or unspecified chronic kidney disease; E11.9 Type 2 diabetes mellitus without complications; E07.9 Disorder of thyroid, unspecified; N18.9 Chronic kidney disease, unspecified; D57.3 Sickle-cell trait; E66.9 Obesity, unspecified; Z79.4 Long term (current) use of insulin; Z79.01 Long term (current) use of anticoagulants; Z86.718 Personal history of other venous thrombosis and embolism; Z87.448 Personal history of other diseases of urinary system
CPT/HCPCS: 71045; 80053; 82550; 84484; 85025; 85610; 85730; 93005; 96372; 99285; J2360

== ENCOUNTER 2018-03-14 22:32 | Observation (INO) ==
[2018-03-14] MEDS ORDERED: Morphine Inj 4 MG/ML Vial IV.PUSH ONE (23:02)
--- NOTE | 2018-03-14 23:29 | XR ---
EXAM DATE: 03/14/2018 11:25 PM EDT AGE/SEX: 62 years / Male INDICATIONS: Chest pain for 1 hour CLINICAL DATA: This is the patient's initial encounter. Patient reports that signs and symptoms have been present for 1 day and indicates a pain score of 8/10. MEDICAL/SURGICAL HISTORY: Cardiovascular disease. . Cardiac stent COMPARISON: [facility], CHEST 1V SINGLE AP, 01/15/2018. . FINDINGS: There is trace bibasilar atelectasis. No pneumonia, pleural effusion or pneumothorax demonstrated. Heart size stable, within normal limits. CONCLUSION: Minimal bibasilar atelectasis. Otherwise negative. Electronically signed by: Ti Albert MD 03/14/2018 11:28 PM EDT
[2018-03-14 23:40] LABS: Baso % (Auto) 0.3 % (0.0-2.0); Eos # (Auto) 0.1 th/mm3 (0.0-0.4); Eos % (Auto) 1.3 % (0.0-4.0); Hematocrit 38.3 % (39.0-51.0); Hemoglobin 12.8 gm/dL (13.0-17.0); Lymph # (Auto) 1.3 th/mm3 (1.0-4.8); Lymph % (Auto) 20.7 % (9.0-44.0); Mean Corpuscular HGB Conc 33.5 % (32.0-36.0); Mean Corpuscular Hemoglobin 26.5 pg (27.0-34.0); Mean Corpuscular Volume 79.3 fL (80.0-100.0); Mean Platelet Volume 8.5 fL (7.0-11.0); Mono # (Auto) 0.7 th/mm3 (0.0-0.9); Neut # (Auto) 4.2 th/mm3 (1.8-7.7); Neut % (Auto) 66.7 % (16.0-70.0); Platelet Count 142 th/mm3 (150-450); Red Blood Count 4.83 mil/mm3 (4.50-5.90); Red Cell Distribution Width 19.5 % (11.6-17.2); White Blood Count 6.3 th/mm3 (4.0-11.0)
[2018-03-14 23:53] LABS: Alanine Aminotransferase 64 U/L (12-78)
[2018-03-14 23:57] LABS: Alkaline Phosphatase 95 U/L (45-117); Creatine Kinase 686 U/L (39-308); Total Protein 6.6 g/dL (6.4-8.2); Troponin I 0.16 ng/mL (0.02-0.05)
[2018-03-14 23:58] LABS: Anion Gap 4 meq/L (5-15); Aspartate Aminotransferase 40 U/L (15-37); Blood Urea Nitrogen 28 mg/dL (7-18); Calcium 8.8 mg/dL (8.5-10.1); Carbon Dioxide 32.7 meq/L (21.0-32.0); Chloride 106 meq/L (98-107); Glomerular Filtration Rate 38 mL/min (>89); Glucose,Random 296 mg/dL (74-106); Potassium 4.1 meq/L (3.5-5.1); Sodium 143 meq/L (136-145)
[2018-03-14] MEDS ORDERED: hydrALAZINE 25 MG Tablet PO ONE (23:59)
[2018-03-15 00:10] LABS: CKMB Percent 0.6 % (0.0-4.0)
[2018-03-15] MEDS ORDERED: Orphenadrine Inj 60 MG/2 ML Ampul IM ONE (00:28)
--- NOTE | 2018-03-15 00:44 | ED ---
HPI General Chief complaint: Chest Pain Stated complaint: chest pain Time Seen by Provider: 03/14/18 22:44 Source: patient Mode of arrival: ambulatory Limitations: no limitations History of Present Illness HPI narrative: Patient is a 62 year old male who comes in complaining of chest pain. He says it started 45 minutes ago and radiates up towards his neck. He has history of cardiac stents in the past. He has been here multiple times in the past for chest pain. He says he is taking multiple blood pressure medications and reports compliance. He denies shorntess of breath, nausea or vomiting. Severity is mild to moderate. Related Data Home Medications Medication Instructions Recorded Confirmed apixaban [Eliquis] 2.5 mg PO BID 01/15/18 03/14/18 clonidine HCl 0.2 mg PO BID 01/15/18 03/14/18 furosemide [Lasix] 20 mg PO DAILY 01/15/18 03/14/18 insulin glargine [Lantus U-100 10 unit SUB-Q DAILY 01/15/18 03/14/18 Insulin] potassium chloride 20 meq PO DAILY 01/15/18 03/14/18 pregabalin [Lyrica] 100 mg PO BID 03/14/18 03/14/18 Allergies Allergy/AdvReac Type Severity Reaction Status Date / Time benazepril Allergy Severe ANGIOEDEMA Verified 01/15/18 02:41 captopril Allergy Severe ANGIOEDEMA Verified 01/15/18 02:41 enalaprilat Allergy Severe Edema Verified 01/15/18 02:41 fosinopril Allergy Severe ANGIOEDEMA Verified 01/15/18 02:41 lisinopril Allergy Severe ANGIOEDEMA Verified 01/15/18 02:41 quinapril Allergy Severe ANGIOEDEMA Verified 01/15/18 02:41 hydromorphone AdvReac Intermediate ITCHING Verified 01/15/18 02:41 Review of Systems ROS: all other systems reviewed are negative Constitutional Denies chills and Denies fever(s) Cardiovascular Reports chest pain Respiratory Denies dyspnea Gastrointestinal Denies abdominal pain, Denies nausea and Denies vomiting Musculoskeletal Denies myalgias and Denies arthralgias Integumentary/Breasts Denies change in pigmentation Neurologic Denies focal weakness and Denies numbness [facility] Medical History Medical History Hx of abdominal aortic aneurysm (Acute) Diabetes (Acute) Hypertension (Acute) Surgical History Surgical History H/O heart artery stent (Acute) History of hip replacement (Acute) Social History Social History Substance History: No History of Abuse Second Hand Smoke Exposure: No Smoking Status: Never smoker How Often Do You Have a Drink Containing Alcohol: Never Recent Travel in [facility] within the Last 8 Weeks: No Recent Out of Country Travel within the Last 8 Weeks: No Immunization History Tetanus Immunization: <5 Years Hx Influenza Vaccine This Season: No Exam Narrative Exam Narrative: GENERAL: Awake and alert, in no acute distress. SKIN: Focused skin assessment warm/dry. No wounds or signs of infection. HEAD: Atraumatic. Normocephalic. EYES: Pupils equal and round. No scleral icterus. ENT: Mucous membranes pink and moist. NECK: Trachea midline. No JVD. CARDIOVASCULAR: Regular rate and rhythm. No murmur appreciated. RESPIRATORY: No accessory muscle use. Clear to auscultation. Breath sounds equal bilaterally. GASTROINTESTINAL: Abdomen soft, non-tender, nondistended. Hepatic and splenic margins not palpable. MUSCULOSKELETAL: No obvious deformities. No clubbing. No cyanosis. Mild, bilateral lower extremity edema. NEUROLOGICAL: Awake and alert. No obvious cranial nerve deficits. Motor grossly within normal limits. Normal speech. PSYCHIATRIC: Appropriate mood and affect; insight and judgment normal. Course Initial Documented Vital Signs Temperature 98.6 F 03/14/18 22:35 Pulse Rate 65 03/14/18 22:35 Respiratory Rate 16 03/14/18 22:35 Blood Pressure 214/98 H 03/14/18 22:35 Pulse Oximetry 95 03/14/18 22:35 Last Documented Vital Signs Temperature 98.6 F 03/14/18 22:35 Pulse Rate 64 03/15/18 00:00 Respiratory Rate 18 03/15/18 00:00 Blood Pressure 189/88 H 03/15/18 00:00 Pulse Oximetry 97 03/15/18 00:00 Medical Decision Making MDM Narrative Medical decision making narrative: Patient is a 62-year-old male who comes in complaining of chest pain. Exam shows mild bilateral lower extremity edema. IV established, labs sent. Patient connected to the telemetry monitor. Labs show a troponin of 0.16, which is higher than it has been in the past. Patient is on Eliquis. He was given a dose of aspirin. Given pain medicine. Given nitro with some relief of his pain. Patient will be admitted for further management. Medical Screen Exam Complete: Yes Emergency Medical Condition: Yes Differential Diagnosis Differential Diagnosis: ACS versus NSTEMI versus STEMI Medical Records Medical records reviewed: Yes I reviewed the patient's medical records. Lab Data Lab results reviewed: Yes I reviewed the patient's lab results. Result diagrams: 03/14/18 23:05 03/14/18 23:05 Lab Results 03/14/18 03/14/18 03/14/18 Range/Units 23:05 23:05 23:05 WBC 6.3 (4.0-11.0) th/mm3 RBC 4.83 (4.50-5.90) mil/mm3 Hgb 12.8 L (13.0-17.0) gm/dL Hct 38.3 L (39.0-51.0) % MCV 79.3 L (80.0-100.0) fL MCH 26.5 L (27.0-34.0) pg MCHC 33.5 (32.0-36.0) % RDW 19.5 H (11.6-17.2) % Plt Count 142 L (150-450) th/mm3 MPV 8.5 (7.0-11.0) fL Neut % (Auto) 66.7 (16.0-70.0) % Lymph % (Auto) 20.7 (9.0-44.0) % [place] % (Auto) 11.0 H (0.0-8.0) % Eos % (Auto) 1.3 (0.0-4.0) % Baso % (Auto) 0.3 (0.0-2.0) % Neut # (Auto) 4.2 (1.8-7.7) th/mm3 Lymph # (Auto) 1.3 (1.0-4.8) th/mm3 [place] # (Auto) 0.7 (0.0-0.9) th/mm3 Eos # (Auto) 0.1 (0.0-0.4) th/mm3 Baso # (Auto) 0.0 (0.0-0.2) th/mm3 WBC Differential . Differential Comment Auto diff final Sodium 143 (136-145) meq/L Potassium 4.1 (3.5-5.1) meq/L Chloride 106 (98-107) meq/L Carbon Dioxide 32.7 H (21.0-32.0) meq/L Anion Gap 4 L (5-15) meq/L BUN 28 H (7-18) mg/dL Creatinine 2.14 H (0.60-1.30) mg/dL Estimated GFR 38 L (>89) mL/min Random Glucose 296 H (74-106) mg/dL Calcium 8.8 (8.5-10.1) mg/dL Total Bilirubin 0.4 (0.2-1.0) mg/dL AST 40 H (15-37) U/L ALT 64 (12-78) U/L Alkaline Phosphatase 95 (45-117) U/L Total Creatine Kinase 686 H (39-308) U/L CK-MB (CK-2) 4.0 H (0.5-3.6) ng/mL CK-MB (CK-2) % 0.6 (0.0-4.0) % Troponin I 0.16 H (0.02-0.05) ng/mL B-Natriuretic Peptide 70 (0-100) pg/mL Total Protein 6.6 (6.4-8.2) g/dL Albumin 3.0 L (3.4-5.0) g/dL Imaging Data Radiologist's impression: Chest X-Ray 03/14/18 23:02 CONCLUSION: Minimal bibasilar atelectasis. Otherwise negative. ECG Data EKG Prior to Arrival: No Attestation: I personally reviewed and interpreted this ECG as follows: Interpretation: ECG shows normal sinus rhythm at a rate of 66, no ST elevation or depression, normal intervals Discharge Plan Discharge Disposition Patient Disposition: 30 Still Patient Discharge Condition Condition: Stable Discharge Details Diagnosis: Non-ST elevation [place] (NSTEMI), Hypertension Physicians Team ED Provider: Rubi Mcdaniel Primary Care Provider: Primary Care [facility] Yoo Rxs /Orders / Referrals /Forms Prescriptions: No Action pregabalin [Lyrica] 100 mg Capsule 100 mg PO BID RF: 0 insulin glargine [Lantus U-100 Insulin] 100 unit/mL Solution 10 unit SUB-Q DAILY RF: 0 clonidine HCl 0.2 mg Tablet 0.2 mg PO BID RF: 0 furosemide [Lasix] 20 mg Tablet 20 mg PO DAILY RF: 0 apixaban [Eliquis] 2.5 mg Tablet 2.5 mg PO BID RF: 0 potassium chloride 20 mEq Tablet Extended Release 20 meq PO DAILY RF: 0 Discharge Instructions Patient Printed Instructions: Chest Pain (ED) Discharge Interventions Interventions: Vital Signs Last Done: 03/14/18 23:57 Status ED Status: With Doctor
[2018-03-15 02:35] LABS: Troponin I 0.15 ng/mL (0.02-0.05)
[2018-03-15 02:48] LABS: CKMB Percent 0.6 % (0.0-4.0)
[2018-03-15] MEDS ORDERED: Morphine Inj 4 MG/ML Vial IV.PUSH ONE (05:29)
[2018-03-15 06:17] LABS: Troponin I 0.13 ng/mL (0.02-0.05)
[2018-03-15 06:30] LABS: CKMB Percent 0.6 % (0.0-4.0); Creatine Kinase MB 2.4 ng/mL (0.5-3.6)
[2018-03-15] MEDS ORDERED: Dextrose 50% in Water 50 ML Vial IV.PUSH PRN (09:51)
[2018-03-15] MEDS ORDERED: Bisacodyl 10 MG Supp RECTAL PRN (09:52)
[2018-03-15] MEDS ORDERED: Acetaminophen 325 MG Tablet PO PRN (09:52)
[2018-03-15] MEDS ORDERED: Naloxone Inj 0.4 MG/ML Vial IV.PUSH PRN (09:54)
[2018-03-15] MEDS ORDERED: Morphine Inj 4 MG/ML Vial IV.PUSH PRN (09:54)
[2018-03-15] MEDS ORDERED: oxyCODONE/Acetaminophen 10/325 Tablet PO PRN (09:54)
--- NOTE | 2018-03-15 09:56 | P.HPIM ---
History of Present Illness Service: [facility] Primary Care Physician: No Primary Care Physician [facility] Chief Complaint: Chest pain History of Present Illness: Patient is a 62-year-old -[place] gentleman who came into the hospital initially last night with complaint of chest pain. It started 45 minutes prior to presentation radiating up towards his neck. Has a history of cardiac stents as well as stents in his groin. Has been here multiple times in the past for chest pain. States he is taking his multiple blood pressure medications and reports compliance. He denies any shortness of breath denies any nausea or any vomiting. Cardiology has been consulted and his troponins were noted to be positive on the first set. We will trend troponins and consult cardiology and get an echocardiogram Patient is chronically on Eliquis will continue this. Aspirin has been ordered Had some relief with nitroglycerin Patient's past medical history is significant for history of abdominal aortic aneurysm, diabetes mellitus, hypertension, history of coronary stenting as well as possible peripheral vascular stenting and peripheral vascular disease and history of a right hip replacement. Patient also has a history of renal insufficiency/probably chronic kidney disease stage III Review of Systems All other systems reviewed negative except as stated in HPI PMFSH - History History Provided By: Patient - Medical History Medical History: Medical History (Last Updated 03/15/18 @ 09:47 by Charlie Borja DO) Chronic anticoagulation Hx of abdominal aortic aneurysm Diabetes Hypertension - Surgical History Surgical History: Surgical History (Last Reviewed 03/15/18 @ 00:56 by Rubi Mcdaniel MD) H/O heart artery stent History of hip replacement - Family History Family History: Family History (Last Updated 03/15/18 @ 09:47 by Charlie Borja DO) Other Family history of hypertension - Tobacco History Second Hand Smoke Exposure: No Tobacco Use In Past 30 Days: No Smoking Status: Former smoker Tobacco Type: Cigarettes - Alcohol History How Often Do You Have a Drink Containing Alcohol: Never - Substance Use History Substance History: No History of Abuse - Travel History Recent Travel in the [place] Within the Last 8 Weeks: No Recent Travel Out of the Country Within the Last 8 Weeks: No - Immunization History Tetanus Immunization: <5 Years Hx Influenza Vaccine This Season: No Medications and Allergies Active Medications: Active Medications Apixaban (Eliquis) 2.5 mg PO BID [facility] Clonidine HCl (Catapres) 0.2 mg PO Q8HR [facility] Last Admin: 03/15/18 07:47 Dose: 0.2 mg Furosemide (Lasix) 20 mg PO DAILY [facility] Nitroglycerin (Nitrostat Sl) 0.4 mg SL Q5M PRN PRN Reason: CHEST PAIN Last Admin: 03/15/18 04:22 Dose: 0.4 mg Non-Formulary Medication (Insulin Glargine) 10 unit SQ DAILY [facility] Non-Formulary Medication (Potassium Chloride [Potassium Chloride]) 20 meq PO DAILY [facility] Pregabalin (Lyrica) 100 mg PO BID [facility] Sodium Chloride (Ns Flush) 2 ml IV.FLUSH BID [facility] Last Admin: 03/15/18 09:00 Dose: 2 ml Sodium Chloride (Ns Flush) 2 ml IV.FLUSH PRN PRN PRN Reason: FLUSH AFTER USING IV ACCESS Allergies Allergy/AdvReac Type Severity Reaction Status Date / Time benazepril Allergy Severe ANGIOEDEMA Verified 01/15/18 02:41 captopril Allergy Severe ANGIOEDEMA Verified 01/15/18 02:41 enalaprilat Allergy Severe Edema Verified 01/15/18 02:41 fosinopril Allergy Severe ANGIOEDEMA Verified 01/15/18 02:41 lisinopril Allergy Severe ANGIOEDEMA Verified 01/15/18 02:41 quinapril Allergy Severe ANGIOEDEMA Verified 01/15/18 02:41 hydromorphone AdvReac Intermediate ITCHING Verified 01/15/18 02:41 Home Medications Medication Instructions Recorded Confirmed Type apixaban [Eliquis] 2.5 mg PO BID 01/15/18 03/14/18 History clonidine HCl 0.2 mg PO BID 01/15/18 03/14/18 History furosemide [Lasix] 20 mg PO DAILY 01/15/18 03/14/18 History insulin glargine [Lantus U-100 10 unit SUB-Q DAILY 01/15/18 03/14/18 History Insulin] potassium chloride 20 meq PO DAILY 01/15/18 03/14/18 History pregabalin [Lyrica] 100 mg PO BID 03/14/18 03/14/18 History Exam Vital signs: Vital Signs 03/14/18 22:35 03/14/18 22:46 03/14/18 23:02 Temperature 98.6 F Pulse Rate 65 69 63 Respiratory Rate 16 20 18 Blood Pressure 214/98 H 220/103 H 219/105 H Pulse Oximetry 95 94 L 98 03/14/18 23:57 03/15/18 00:00 03/15/18 01:25 Temperature Pulse Rate 62 64 62 Respiratory Rate 18 18 18 Blood Pressure 198/91 H 189/88 H 150/62 H Pulse Oximetry 97 97 97 03/15/18 01:45 03/15/18 03:30 03/15/18 07:28 Temperature 98.3 F 98.1 F Pulse Rate 60 62 63 Respiratory Rate 16 20 18 Blood Pressure 147/74 H 142/71 H 190/91 H Pulse Oximetry 97 97 95 03/15/18 08:10 Temperature Pulse Rate Respiratory Rate Blood Pressure Pulse Oximetry 98 Intake & Output 03/14/18 03/15/18 03/15/18 18:59 06:59 18:59 Weight 117.934 kg Other: # Voids 1 Weight On Admission 117.934 kg Results - Labs CBC & Chem 7: 03/14/18 23:05 03/14/18 23:05 Labs: Short CBC 03/14/18 Range/Units 23:05 WBC 6.3 (4.0-11.0) th/mm3 Hgb 12.8 L (13.0-17.0) gm/dL Hct 38.3 L (39.0-51.0) % Plt Count 142 L (150-450) th/mm3 BMP 03/14/18 23:05 Sodium 143 Potassium 4.1 Chloride 106 Carbon Dioxide 32.7 H BUN 28 H Creatinine 2.14 H Calcium 8.8 Cardiac Enzymes 03/14/18 03/15/18 03/15/18 Range/Units 23:05 01:50 05:30 Total Creatine Kinase 686 H 524 H 374 H (39-308) U/L CK-MB (CK-2) 4.0 H 3.0 2.4 (0.5-3.6) ng/mL Troponin I 0.16 H 0.15 H 0.13 H (0.02-0.05) ng/mL Liver Function 03/14/18 Range/Units 23:05 Total Bilirubin 0.4 (0.2-1.0) mg/dL AST 40 H (15-37) U/L ALT 64 (12-78) U/L Alkaline Phosphatase 95 (45-117) U/L Albumin 3.0 L (3.4-5.0) g/dL - Imaging Impressions Chest X-Ray 03/14/18 23:02 CONCLUSION: Minimal bibasilar atelectasis. Otherwise negative. Caprini VTE Risk Assessment Caprini VTE Risk Assessment: Moderate/High Risk (score >= 2) Caprini Risk Assessment Model: Point Value = 1 Point Value = 2 Point Value = 3 Point Value = 5 Age 41-60 Minor surgery BMI > 25 kg/m2 Swollen legs Varicose veins or History of unexplained or recurrent spontaneous Oral contraceptives or hormone replacement Sepsis (< 1 month) Serious lung disease, including pneumonia (< 1 month) Abnormal pulmonary function Acute myocardial infarction Congestive heart failure (< 1 month) History of inflammatory bowel disease Medical patient at bed rest Age 61-74 Arthroscopic surgery Major open surgery (> 45 min) Laparoscopic surgery (> 45 min) Malignancy Confined to bed (> 72 hours) Immobilizing plaster cast Central venous access Age >= 75 History of VTE Family history of VTE Factor V Leiden Prothrombin [id number] Lupus anticoagulant Anticardiolipin antibodies Elevated serum homocysteine Heparin-induced thrombocytopenia Other congenital or acquired thrombophilia Stroke (< 1 month) Elective arthroplasty Hip, pelvis, or leg fracture Acute spinal cord injury (< 1 month) Prophylaxis Regimen: Total Risk Factor Score Risk Level Prophylaxis Regimen 0-1 Low Early ambulation 2 Moderate Order ONE of the following: *Sequential Compression Device (SCD) *Heparin 5000 units SQ BID 3-4 Higher Order ONE of the following medications: *Heparin 5000 units SQ TID *Enoxaparin/Lovenox 40 mg SQ daily (WT < 150 kg, CrCl > 30 mL/min) *Enoxaparin/Lovenox 30 mg SQ daily (WT < 150 kg, CrCl > 10-29 mL/min) *Enoxaparin/Lovenox 30 mg SQ BID (WT < 150 kg, CrCl > 30 mL/min) AND/OR *Sequential Compression Device (SCD) 5 or more Highest Order ONE of the following medications: *Heparin 5000 units SQ TID (Preferred with Epidurals) *Enoxaparin/Lovenox 40 mg SQ daily (WT < 150 kg, CrCl > 30 mL/min) *Enoxaparin/Lovenox 30 mg SQ daily (WT < 150 kg, CrCl > 10-29 mL/min) *Enoxaparin/Lovenox 30 mg SQ BID (WT < 150 kg, CrCl > 30 mL/min) AND *Sequential Compression Device (SCD) Assessment and Plan - Plan Chest pain/NSTEMI ASPIRIN TREND TROPONINS FASTING LIPIDS ECHO CARDIOLOGY CONSULT DM SLIDING SCALE COVERAGE AC AND HS WAS ON LANTUS AT HOME 10UNITS SUBQ DAILY CONTINUE Renal insufficiency/chronic kidney disease stage III -Continue on furosemide Diabetic neuropathy continue on Lyrica 100 mg p.o. twice daily Chronic anticoagulation with Eliquis 2.5 mg twice daily Hypertension continue on clonidine 0.2 mg twice daily furosemide 20 mg p.o. daily potassium 20 mEq p.o. daily Trend troponins and cardiac enzymes A.m. labs Pain control as needed Await cardiology input as well as echo Prophylaxis with Pepcid DVT prophylaxis with his home dose of Eliquis 2.5 twice daily H&P: Quality - VTE Deep Vein Thrombosis/Pulmonary Embolism Present on Admission: No
[2018-03-15] MEDS ORDERED: Furosemide 20 MG Tablet PO SCH (10:00)
[2018-03-15] MEDS ORDERED: Insulin Detemir Inj 1,000 UNIT/10 ML Vial SQ SCH (10:00)
--- NOTE | 2018-03-15 10:58 | ECG ---
Date Performed: 03/15/2018 Time Performed: 01:58:59 PTAGE: 62 years EKG: SINUS BRADYCARDIA BORDERLINE ECG Since the PREVIOUS TRACING , no significant change noted PREVIOUS TRACIN01/15/2018 07.55 DOCTOR: Logan Hutson Interpretating Date/Time 03/15/2018 10:56:46
--- NOTE | 2018-03-15 10:58 | ECG ---
Date Performed: 03/14/2018 Time Performed: 22:44:56 PTAGE: 62 years EKG: Sinus rhythm NORMAL ECG Since the PREVIOUS TRACING , no significant change noted PREVIOUS TRACING DOCTOR: Logan Hutson Interpretating Date/Time 03/15/2018 10:56:37
[2018-03-15 11:50] LABS: Free T4 (Free Thyroxine) 0.76 ng/dL (0.76-1.46); Troponin I 0.15 ng/mL (0.02-0.05)
[2018-03-15 12:03] LABS: CKMB Percent 0.6 % (0.0-4.0); Creatine Kinase MB 2.6 ng/mL (0.5-3.6)
[2018-03-15] MEDS: Insulin NovoLOG Aspart Correctional Sugar Inj SQ SCH ×3 (12:13→22:26)
[2018-03-15] MEDS: Famotidine 20 MG Tablet PO SCH ×2 (12:22→20:15)
[2018-03-15] MEDS: Morphine Inj 4 MG/ML Vial IV.PUSH PRN ×2 (12:28→22:29)
--- NOTE | 2018-03-15 14:20 | ECHRPT ---
Indication: Essential (primary) hypertension CONCLUSIONS The left ventricular systolic function is normal with an estimated ejection fraction in the range of 60-65%. Wall thickness is measured at the upper limits of normal. Normal left ventricular size. Mild mitral valve regurgitation. The left atrial size is mildly dilated. There is moderate tricuspid regurgitation. The estimated pulmonary arterial pressure is 37 mmHg. Trivial pulmonary valve regurgitation. BP: / HR: 53 Rhythm: Sinus MEASUREMENTS (Male / Female) Normal Values Technical Quality:Fair 2D ECHO LV Diastolic Diameter PLAX 4.6 cm 4.2 - 5.9 / 3.9 - 5.3 cm LV Systolic Diameter PLAX 3.4 cm IVS Diastolic Thickness 1.0 cm 0.6 - 1.0 / 0.6 - 0.9 cm LVPW Diastolic Thickness 1.0 cm 0.6 - 1.0 / 0.6 - 0.9 cm LV Relative Wall Thickness 0.4 LVOT Diameter 1.9 cm M-MODE Aortic Root Diameter MM 3.0 cm LA Systolic Diameter MM 4.4 cm LA Ao Ratio MM 1.5 AV Cusp Separation MM 2.2 cm DOPPLER AV Peak Velocity 148.0 cm/s AV Peak Gradient 8.8 mmHg LVOT Peak Velocity 84.4 cm/s LVOT Peak Gradient 2.8 mmHg AV Area Cont Eq pk 1.6 cm MR Peak Velocity 286.0 cm/s MR Peak Gradient 32.7 mmHg Mitral E Point Velocity 109.0 cm/s Mitral A Point Velocity 94.8 cm/s Mitral E to A Ratio 1.1 LV E' Lateral Velocity 5.5 cm/s Mitral E to LV E' Lateral Ratio 20.0 TR Peak Velocity 260.0 cm/s TR Peak Gradient 27.0 mmHg Right Atrial Pressure 10.0 mmHg Pulmonary Artery Systolic Pressu 37.0 mmHg Right Ventricular Systolic Press 37.0 mmHg PV Peak Velocity 90.9 cm/s PV Peak Gradient 3.3 mmHg FINDINGS LEFT VENTRICLE The left ventricular systolic function is normal with an estimated ejection fraction in the range of 60-65%. Wall thickness is measured at the upper limits of normal. Normal left ventricular size. RIGHT VENTRICLE Normal right ventricular size and systolic function. LEFT ATRIUM The left atrial size is mildly dilated. RIGHT ATRIUM The right atrial size is normal. ATRIAL SEPTUM Normal atrial septal thickness without atrial level shunting by limited color doppler interrogation. AORTA The aortic root and proximal ascending aorta are normal in size on limited imaging. MITRAL VALVE Mild mitral valve regurgitation. AORTIC VALVE Trileaflet aortic valve. No aortic valve stenosis or regurgitation. TRICUSPID VALVE There is moderate tricuspid regurgitation. The estimated pulmonary arterial pressure is 37 mmHg. PULMONARY VALVE Trivial pulmonary valve regurgitation. VESSELS The inferior vena cava is normal in size. PERICARDIUM No pericardial effusion. Xander Dale MD, FACC (Electronically Signed) Final Date:15 March 2018 14:19
[2018-03-15 16:10] LABS: Hemoglobin A1c 10.4 % (4.3-6.0)
--- NOTE | 2018-03-15 16:41 | ECG ---
Date Performed: 03/15/2018 Time Performed: 06:20:10 PTAGE: 62 years EKG: SINUS BRADYCARDIA ARM LEADS REVERSED When compared to previous tracing, limb lead reversal is now Noted. BORDERLINE ECG PREVIOUS TRACING : 03/15/2018 01.58 DOCTOR: Kentrell Garay Interpretating Date/Time 03/15/2018 16:39:46
[2018-03-15] MEDS ORDERED: Senna/Docusate Sodium 8.6/50 MG Tablet PO SCH (21:00)
[2018-03-16] MEDS ORDERED: hydrALAZINE 50 MG Tablet PO ONE (00:43)
[2018-03-16] MEDS ORDERED: Iohexol 350 MG/ML 100 ML Vial (for Cath Lab) IVCONTRAST ONE (01:45)
[2018-03-16] MEDS: Morphine Sulfate Inj 2 MG/ML Vial IV.PUSH PRN ×2 (02:31→05:28)
[2018-03-16] MEDS: Insulin NovoLOG Aspart Correctional Sugar Inj SQ SCH ×2 (02:37→08:31)
--- NOTE | 2018-03-16 06:12 | P.CONCA ---
History of Present Illness Consult date: 03/15/18 Primary Care Provider: No Primary Care Physician Family Provider: No Primary Care Physician Chief Complaint: Chest pain History of Present Illness: The patient is a very pleasant 62 year old gentleman with an known PMH of CAD s/ p PCI to his RCA, HTN, PVD who presented to the ER with complaints of substernal chest discomfort that was 10/10. According to the patient he has not been completely compliant with his home meds and did not take NTG. Currently the chest pain has improved and the patient is requesting a meal. No associated shortness of breath/PND/orthopnea/LE. His last cath in 04/02 showed mild RCA ISR and diffuse circumflex disease. He was recently seen for chest pain and had a normal lexiscan a few months ago (in the context of normal troponins). Today he has a mildly elevated troponin in the context of CKD and uncontrolled HTN. Review of Systems All other systems reviewed negative except as stated in HPI PMFSH - History History Provided By: Patient - Medical History Medical History: Medical History (Last Updated 03/15/18 @ 09:47 by Charlie Borja DO) Chronic anticoagulation Hx of abdominal aortic aneurysm Diabetes Hypertension - Surgical History Surgical History: Surgical History (Last Reviewed 03/15/18 @ 00:56 by Rubi Mcdaniel MD) H/O heart artery stent History of hip replacement - Family History Family History: Family History (Last Updated 03/15/18 @ 09:47 by Charlie Borja DO) Other Family history of hypertension - Tobacco History Second Hand Smoke Exposure: No Tobacco Use In Past 30 Days: No Smoking Status: Former smoker Tobacco Type: Cigarettes - Alcohol History How Often Do You Have a Drink Containing Alcohol: Never - Substance Use History Substance History: No History of Abuse - Travel History Recent Travel in the [place] Within the Last 8 Weeks: No Recent Travel Out of the Country Within the Last 8 Weeks: No - Immunization History Tetanus Immunization: <5 Years Hx Influenza Vaccine This Season: No Medications and Allergies Active Medications: Active Medications Acetaminophen (Tylenol) 650 mg PO Q4H PRN PRN Reason: Temp > 100.4 Al Hydroxide/Mg Hydroxide (Milk Of Magnesia Liq) 30 ml PO Q12H PRN PRN Reason: Mild Constipation Apixaban (Eliquis) 2.5 mg PO BID [facility] Last Admin: 03/15/18 12:21 Dose: 2.5 mg Bisacodyl (Dulcolax Supp) 10 mg RECTAL DAILY PRN PRN Reason: SEVERE CONSITIPATION Clonidine HCl (Catapres) 0.2 mg PO Q8HR [facility] Last Admin: 03/15/18 22:27 Dose: 0.2 mg Dextrose (D50w Vial) 50 ml IV.PUSH UNSCH PRN PRN Reason: PER HYPOGLYCEMIA PROTOCOL Famotidine (Pepcid) 20 mg PO BID [facility] Last Admin: 03/15/18 20:15 Dose: 20 mg Furosemide (Lasix) 20 mg PO DAILY [facility] Last Admin: 03/15/18 12:20 Dose: 20 mg Glucagon (Glucagon Inj) 1 mg OTHER UNSCH PRN PRN Reason: for Hypoglycemia Protocol Insulin Aspart (Novolog Insulin Correctional Sugar Inj) 0 unit SQ ACHS AND 3AM [facility]; Protocol Last Admin: 03/16/18 02:37 Dose: 7 unit Insulin Detemir (Levemir Inj) 10 unit SQ DAILY [facility] Last Admin: 03/15/18 12:13 Dose: Not Given Lactulose (Lactulose Liq) 30 ml PO DAILY PRN PRN Reason: SEVERE CONSITIPATION Morphine Sulfate (Morphine Inj) 4 mg IV.PUSH Q3H PRN PRN Reason: PAIN 6-10;IF UNABLE TO TAKE PO Last Admin: 03/15/18 22:29 Dose: 4 mg Morphine Sulfate (Morphine Inj) 4 mg IV.PUSH Q3H PRN PRN Reason: BREAKTHROUGH PAIN Last Admin: 03/15/18 18:23 Dose: 4 mg Morphine Sulfate (Morphine Inj) 2 mg IV.PUSH Q3H PRN PRN Reason: PAIN 3-5; IF UNABLE TO TAKE PO Last Admin: 03/16/18 05:28 Dose: 2 mg Naloxone HCl (Narcan Inj) 0.4 mg IV.PUSH UNSCH PRN PRN Reason: SEE LABEL COMMENTS Nitroglycerin (Nitrostat Sl) 0.4 mg SL Q5M PRN PRN Reason: CHEST PAIN Last Admin: 03/15/18 04:22 Dose: 0.4 mg Ondansetron HCl (Zofran Inj) 4 mg IV.PUSH Q6H PRN PRN Reason: NAUSEA OR VOMITING Oxycodone/Acetaminophen (Percocet 10/325 Mg) 1 tab PO Q6H PRN PRN Reason: PAIN SCALE 6 TO 10 Last Admin: 03/15/18 16:01 Dose: 1 tab Oxycodone/Acetaminophen (Percocet 5/325 Mg) 1 tab PO Q6H PRN PRN Reason: PAIN SCALE 3 TO 5 Potassium Chloride (K-Dur) 20 meq PO DAILY [facility] Last Admin: 03/15/18 12:21 Dose: 20 meq Pregabalin (Lyrica) 100 mg PO BID [facility] Last Admin: 03/15/18 20:15 Dose: 100 mg Senna/Docusate Sodium (Sobeida-Colace) 1 tab PO BID [facility] Last Admin: 03/15/18 20:15 Dose: 1 tab Sennosides (Senokot) 17.2 mg PO Q12H PRN PRN Reason: Moderate Constipation Sodium Chloride (Ns Flush) 2 ml IV.FLUSH BID [facility] Last Admin: 03/15/18 20:15 Dose: 2 ml Sodium Chloride (Ns Flush) 2 ml IV.FLUSH PRN PRN PRN Reason: FLUSH AFTER USING IV ACCESS Allergies Allergy/AdvReac Type Severity Reaction Status Date / Time benazepril Allergy Severe ANGIOEDEMA Verified 01/15/18 02:41 captopril Allergy Severe ANGIOEDEMA Verified 01/15/18 02:41 enalaprilat Allergy Severe Edema Verified 01/15/18 02:41 fosinopril Allergy Severe ANGIOEDEMA Verified 01/15/18 02:41 lisinopril Allergy Severe ANGIOEDEMA Verified 01/15/18 02:41 quinapril Allergy Severe ANGIOEDEMA Verified 01/15/18 02:41 hydromorphone AdvReac Intermediate ITCHING Verified 01/15/18 02:41 Home Medications Medication Instructions Recorded Confirmed Type apixaban [Eliquis] 2.5 mg PO BID 01/15/18 03/14/18 History clonidine HCl 0.2 mg PO BID 01/15/18 03/14/18 History furosemide [Lasix] 20 mg PO DAILY 01/15/18 03/14/18 History insulin glargine [Lantus U-100 10 unit SUB-Q DAILY 01/15/18 03/14/18 History Insulin] potassium chloride 20 meq PO DAILY 01/15/18 03/14/18 History pregabalin [Lyrica] 100 mg PO BID 03/14/18 03/14/18 History Exam Vital signs: Vital Signs 03/15/18 07:28 03/15/18 08:00 03/15/18 08:10 Temperature 98.1 F Pulse Rate 63 Respiratory Rate 18 16 Blood Pressure 190/91 H Pulse Oximetry 95 98 98 03/15/18 09:00 03/15/18 12:00 03/15/18 16:00 Temperature 98.0 F 97.7 F Pulse Rate 65 65 60 Respiratory Rate 18 18 Blood Pressure 186/88 H 156/74 H Pulse Oximetry 97 98 03/15/18 20:00 03/16/18 00:00 03/16/18 04:00 Temperature 98.7 F 98.2 F Pulse Rate 66 62 66 Respiratory Rate 17 17 18 Blood Pressure 175/83 H 198/95 H 191/81 H Pulse Oximetry 99 99 97 Intake & Output 03/15/18 03/15/18 03/16/18 06:59 18:59 06:59 Weight 117.934 kg Other: # Voids 1 Weight On Admission 117.934 kg - Constitutional no acute distress - Routine HEENT Exam Head: Present: normocephalic Eye: Present: EOMI ENT: Present: mucous membranes moist - Routine Neck Exam Present: supple - Routine Chest/Breast/Axilla Exam Chest wall: Present: tenderness - Routine Respiratory Exam Present: CTA bilaterally - Routine Cardiovascular Exam Present: RRR, S1, S2 - Routine Abdominal Exam Present: soft, normoactive bowel sounds. Absent: tenderness - Routine Extremities Exam Absent: edema - Routine Skin Exam Present: intact - Routine Neurological Exam Present: alert, oriented X3 - Routine Psychiatric Exam Present: normal affect Results 03/14/18 23:05 03/14/18 23:05 Cardiac Enzymes 03/15/18 03/15/18 Range/Units 05:30 11:08 CK-MB (CK-2) 2.4 2.6 (0.5-3.6) ng/mL Troponin I 0.13 H 0.15 H (0.02-0.05) ng/mL EKG interpretations - Dysrhythmias Sinus rhythms and dysrhythmias: sinus bradycardia (< 50 bpm) Assessment and Plan - Plan NSTEMI Hx of CAD Hx of CKD HTN Plan: Given the elevation of cardiac markers will proceed with cath am of 03/16 via a radial approach. Eliquis will be help prior to the procedure.We will also followup on the Transthoracic echo. Given his history of CAD and HTN he would benefit from initiation of coreg.
[2018-03-16 07:00] LABS: Baso % (Auto) 0.4 % (0.0-2.0); Eos # (Auto) 0.2 th/mm3 (0.0-0.4); Eos % (Auto) 3.1 % (0.0-4.0); Hematocrit 37.7 % (39.0-51.0); Hemoglobin 12.6 gm/dL (13.0-17.0); Lymph # (Auto) 1.3 th/mm3 (1.0-4.8); Lymph % (Auto) 23.6 % (9.0-44.0); Mean Corpuscular HGB Conc 33.5 % (32.0-36.0); Mean Corpuscular Hemoglobin 26.5 pg (27.0-34.0); Mean Corpuscular Volume 78.9 fL (80.0-100.0); Mean Platelet Volume 8.6 fL (7.0-11.0); Mono # (Auto) 0.5 th/mm3 (0.0-0.9); Mono % (Auto) 8.9 % (0.0-8.0); Neut # (Auto) 3.5 th/mm3 (1.8-7.7); Platelet Count 129 th/mm3 (150-450); Red Blood Count 4.77 mil/mm3 (4.50-5.90); Red Cell Distribution Width 19.1 % (11.6-17.2); White Blood Count 5.5 th/mm3 (4.0-11.0)
[2018-03-16] MEDS ORDERED: Heparin/NS PF Inj 1,000 ML ONE ×2 (07:13→07:26)
[2018-03-16] MEDS ORDERED: fentaNYL Citrate Inj 100 MCG/2 ML Ampul ONE (07:17)
[2018-03-16] MEDS ORDERED: Heparin 10,000 UNITS/10 ML Vial (for IV use) ONE (07:18)
[2018-03-16 07:26] LABS: Albumin 2.7 g/dL (3.4-5.0); Anion Gap 10 meq/L (5-15); Aspartate Aminotransferase 19 U/L (15-37); Blood Urea Nitrogen 38 mg/dL (7-18); Carbon Dioxide 27.5 meq/L (21.0-32.0); Chloride 102 meq/L (98-107); Cholesterol 119 mg/dL (120-200); Glomerular Filtration Rate 40 mL/min (>89); Glucose,Random 274 mg/dL (74-106); Magnesium 2.4 mg/dL (1.5-2.5); Potassium 4.5 meq/L (3.5-5.1); Sodium 139 meq/L (136-145)
[2018-03-16 07:30] LABS: Alanine Aminotransferase 55 U/L (12-78); Alkaline Phosphatase 86 U/L (45-117); Chol/HDL Ratio 2.84 Ratio; HDL Cholesterol 41.9 mg/dL (40.0-60.0); LDL Cholesterol,Calculated 38 mg/dL (0-99); Phosphorus 4.3 mg/dL (2.5-4.9); Total Protein 6.5 g/dL (6.4-8.2); Triglycerides 194 mg/dL (42-150)
[2018-03-16] MEDS ORDERED: hydrALAZINE HCl Inj 20 MG/ML Vial ONE (07:36)
--- NOTE | 2018-03-16 08:09 | CATHPROC ---
Enswers HIS Report Study Information Study Number Admission Scheduled Start Study Start [id number] Mar 15 2018 1:44AM 03/16/2018 Mar 16 2018 7:08AM [place] Service Cardiac Catheterization Admit Source Facility Department Emergency department [facility] - Metalworker Physician and Clinical Staff Initial Blane Ray Auto Electrician Juan RN, Tim RecordLis Humphreys,RT(R) (BS) Scrub Tasha Joyner,RT(R) Procedures Performed Procedure Location (Site) Vessel Name Coronary Angiograms LCA Left Coronary Coronary Angiograms RCA Right Coronary L Heart Cath Equipment Time Oyster Culturist Description Size Mfg Part Number Used/Scraped TRANSDUCER, TRUWAVE [id number] 07:17 PARRISH MARTINO * Used W/STOCKCOCK *[id number] 07:17 [employer] [facility] SUPPORT, ARTERIAL ADULT [id number] Used [id number]-21-2.5 07:17 [employer]. NEEDLE, PERCUTANEOUS ENTRY 21G X 2.5CM Used *[id number] 534-576T *[id number] 534-618T *[id number] 534-621T *[id number] 534-623T *[id number] 07:17 [employer] BLANKET,WARM AIR CCL * Used *[id number] 07:17 [employer] PACK, CCL CUSTOM * Used *[id number] BAND, RADIAL COMPRESSION TR [id number] 08:00 [employer] 24CM Used SHORT 24 *[id number] 07:17 [employer] WIRE, EXCHANGE 260CM 3MMJ 260CM Used *[id number] 07:17 NAMIC MANIFOLD, 4 PORT * Used *[id number] 07:17 [employer] OMNIPAQUE, 350 MG, 150ML 150ML [id number] Used SHEATH, FR6 TRANSRADIAL [id number] 07:17 [employer] MEDICAL FR 6 Used SLENDER 10CM *[id number] History: Current Medications Medication Dosage/Unit Route Frequency Last Date/Time Taken ELIQUIS History: Allergies Allergy Reaction DAWIT Inhibitors ANGIOEDEMA Clonidine DRY MOUTH Dilaudid ITCHING Vasotec captopril ANGIOEDEMA lisinopril ANGIOEDEMA benazepril ANGIOEDEMA quinapril ANGIOEDEMA fosinopril ANGIOEDEMA hydromorphone ITCHING enalaprilat Edema History: Risk Factors Family History of Hypertension Dyslipidemia Previous OH Previous Heart Failure Premature CAD Yes Yes Yes Yes No Prior Valve Prior PCI Prior PCIDate Prior CABG Surgery No Yes 07/28/2016 No Cerebrovascular Peripheral Artery Chronic Lung On Dialysis Diabetes Diabetes Therapy Disease Disease Disease No Yes Yes No Yes Insulin History: Stress Tests Stress or Imaging Studies Performed No History: Other Current Smoker Method Quit Packs a Day Years Used Pack Years No Cigarettes 15 Years Ago 1 20 20 Labs Hgb (g/dl) Hct (%) WBC (l/cumm) Platelets (thousands) 11.60-17.00 35.00-51.00 4.00-11.00 150.00-450.00 12.8 38.3 6.3 142 Glucose (mg/dl) BUN (mg/dl) Creatinine (mg/dl) BUN:Creatinine (1:x) 74.00-106.00 7.00-18.00 0.50-1.30 10.00-20.00 341 28 2.1 13.3 Na (meq/l) K (meq/l) 136.00-145.00 3.50-5.10 143 4.1 Troponin I (ng/ml) CPK-MB (ng/ML) 0.02-0.05 0.50-3.60 0.15 Not Drawn Medication Medication Total Dose (Bolus/Oral) Medication Total Dosage/Unit 1% XYLOCAINE 1 mL FENTANYL 50 mcg HEPARIN 5000 units HYDRALAZINE 10 mg RADIAL COCKTAIL 1 units VERSED 2 mg Medications (Bolus/Oral) Medication Time Given Dosage/Unit Administered By Reason VERSED 03/16/2018 7:34:50 AM 2 mg Tim Martinez RN 2 mg VERSED given in lab by Tim Martinez RN via Peripheral IV. FENTANYL 03/16/2018 7:35:00 AM 50 mcg Tim Martinez RN 50 mcg FENTANYL given in lab by Tim Martinez RN via Peripheral IV. 1% XYLOCAINE 03/16/2018 7:35:38 AM 1 mL Blane Sorenson 1 mL 1% XYLOCAINE given in lab by Blane Sorenson in Right Radial via Subcutaneous. HYDRALAZINE 03/16/2018 7:37:42 AM 10 mg Tim Martinez RN 10 mg HYDRALAZINE given in lab by Tim Martinez RN via Peripheral IV. Ntg 200mcg Verapamil 2.5mg Heparin RADIAL COCKTAIL 03/16/2018 7:38:30 AM 1 units Blane Sorenson 2000U 1 units RADIAL COCKTAIL given in lab by Blane Sorenson in Right Radial via Radial. Reason: Ntg 200mcg V erapamil 200 HEPARIN 03/16/2018 7:40:39 AM 5000 units Tim Martinez RN 5000 units HEPARIN given in lab by Tim Martinez RN via Peripheral IV. Ordered by Blane Sorenson. Medication (Drip) Medication Time Given Dosage/Unit Concentration/Unit Diluent (ml) Solution IV Solutions 03/16/2018 7:08:47 AM 50 mL (IV) NaCl .9 Patient arrived on IV Solutions in Right Antecubital via Peripheral IV. Pump/Drip Flow using NaCl .9. Initial Case Assessment Cardiovascular HR Rhythm NIBP Chest Pain 57 reg 212/103 0 Edema Present Skin color Skin None Normal Warm Dry Circulatory - Right Pulses Dorsalis Pedis Femoral Radial 1 1 1 Scale (0,1,2,3,4,d) Scale (0,1,2,3,4,d) Circulatory - Lower Extremities Color Lower Right Color Lower Left Normal Normal Neurological State Oriented to time-place- Alert Moves all extremities person Respiration - General Respiration Rate SpO2 (%) O2 (lpm) (B/min) 20 98 2 Final Case Assessment Cardiovascular HR Rhythm NIBP Chest Pain 57 reg 212/103 0 Edema Present Skin color Skin None Normal Warm Dry Circulatory - Right Pulses Dorsalis Pedis Femoral Radial 1 1 1 Scale (0,1,2,3,4,d) Scale (0,1,2,3,4,d) Circulatory - Lower Extremities Color Lower Right Color Lower Left Normal Normal Neurological State Oriented to time-place- Alert Moves all extremities person Respiration - General Respiration Rate SpO2 (%) O2 (lpm) (B/min) 20 98 2 Chronological Log Time Study Chronological Log 7:08:11 Patient arrived via Bed. 7:08:12 Patient Name, D.O.B, / Armband Verified By R.N. 7:08:12 Consent signed by the physician and the patient and verified by the Metalworker staff. 7:08:14 Pre-op and post- op instructions given; patient acknowledges understanding of instructions. 7:08:15 Verbal Stimulation=2 Physical Stimulation=2 Airway=2 Respiration=2 TOTAL=8. (0=absent, 1=li mited, 2=present) 7:08:19 Allens test performed on the right radial and ulnar artery. 7:08:37 Patient has been NPO for More than 6Hrs. 7:08:37 Skin Breakdown- none per patient 7:08:39 Patient Warmer Placed on the Table. 7:08:42 Mary Prominences Protected 7:08:46 A # 20 IV was noted in the Antecubital (right). Grade = 0 7:08:47 Patient arrived on IV Solutions in Right Antecubital via Peripheral IV. Pump/Drip Flow usin g NaCl .9. Assessment: Initial Case, HR=57 BPM, Rhythm=reg, JBNV=632/103 mmhg, Chest Pain=0, Edema=None, Color=Normal, Skin = Warm, Dry Right Pulses: Ochoa Ped=1, Femoral=1, Radial=1 7:08:54 Lower Right Extremities: Color=Normal Lower Left Extremities: Color=Normal Neurological: State=Alert, Ox3, GALARZA Respiration: Resp=20 B/min, SpO2=98 %, O2=2 lpm Vitals capture started with the following parameters, Patient=Adult, Interval=5 min, Initial Pr gzponr=169 mmHg, 7:10:25 Deflation Rate=5 mmHg, Cuff placed on Left Arm Vitals capture started with the following parameters, Patient=Adult, Interval=5 min, Initial Pre sntxa=910 mmHg, 7:11:34 Deflation Rate=5 mmHg, Cuff placed on Left Arm 7:11:43 Vitals capture stopped. Vitals capture started with the following parameters, Patient=Adult, Interval=5 min, Initial Pre umoab=647 mmHg, 7:12:49 Deflation Rate=5 mmHg, Cuff placed on Left Arm 7:14:16 HR=59 bpm, GMEP=221/103 mmhg, SpO2=91.0 %, Resp=20 B/min, Pain=0, Amarilys=10, Keyes=2 7:18:44 HR=60 bpm, BAMB=579/108 mmhg, SpO2=94.0 %, Resp=22 B/min, Pain=0, Amarilys=10, Keyes=2 7:19:09 Reference ECG taken 7:23:08 Bilateral groins prepped with 2% chlorhexidine, and draped after a 3 minute waiting time. 7:23:45 HR=57 bpm, DMSN=467/102 mmhg, SpO2=96.0 %, Resp=16 B/min, Pain=0, Amarilys=10, Keyes=2 7:26:40 MD paged 7:28:46 HR=58 bpm, JPBR=497/96 mmhg, SpO2=96.0 %, Resp=19 B/min, Pain=0, Amarilys=10, Keyes=2 7:29:53 MD arrived 7:31:06 Pressure channel 1 zeroed. Time Out. Correct patient, correct procedure, correct physician, labs, allergies, and equipment verified with laboratory sampler 7:33:37 team present. Fire risk assesment completed (see hard stop sheet for coding). Time Out Concu rred by MD and individual staff in procedure. 7:33:44 Case Start 7:33:45 HR=58 bpm, LFSE=119/94 mmhg, SpO2=96.0 %, Resp=21 B/min, Pain=0, Amarilys=10, Keyes=2 7:34:50 2 mg VERSED given in lab by Tim Martinez RN via Peripheral IV. 7:35:00 50 mcg FENTANYL given in lab by Tim Martinez RN via Peripheral IV. 7:35:38 1 mL 1% XYLOCAINE given in lab by Blane Sorenson in Right Radial via Subcutaneous. 7:37:15 Access site was Right Radial Artery . 7:37:42 10 mg HYDRALAZINE given in lab by Tim Martinez RN via Peripheral IV. 7:38:30 1 units RADIAL COCKTAIL given in lab by Blane Sorenson in Right Radial via Radial. Reason: Ntg 200mcg Verapamil 200 7:38:46 HR=64 bpm, MINO=638/88 mmhg, SpO2=94.0 %, Resp=17 B/min, Pain=0, Amarilys=10, Keyes=2 A JR 4.0 INFINITI CATHETER FR 6 was advanced over a wire. OMNIPAQUE, 350 MG, 150ML 150ML was use d for 7:39:46 injections. 7:40:39 5000 units HEPARIN given in lab by Tim Martinez RN via Peripheral IV. Ordered by Toney Sorenson 7:42:53 Pressure channel 1 zeroed. Recorded Pressure: LV, HR=72, Condition=Condition 1 7:43:07 (Left Ventricle) LV 152/24/37 Recorded Pressure: LV, Ao, HR=68, Condition=Condition 1 7:43:24 (Left Ventricle) LV 154/39/41, (Aorta) Ao 127/61/88 7:43:43 HR=82 bpm, JMKF=081/84 mmhg, SpO2=92.0 %, Resp=12 B/min After removing the current catheter a JL 3.5 INFINITI CATHETER FR 6 was advanced over a WIRE, EX CHANGE 260CM 7:47:47 3MMJ 260CM. 7:48:38 HR=72 bpm, BBVY=818/85 mmhg, SpO2=92.0 %, Resp=14 B/min 7:49:32 The LCA was injected and visualized at various angles. OMNIPAQUE, 350 MG, 150ML 150ML used. After removing the current catheter a 3DRC INFINITI CATHETER FR 5 was advanced over a WIRE, EXCH FAUSTO 260CM 7:50:53 3MMJ 260CM. 7:53:37 HR=74 bpm, NKVV=962/107 mmhg, SpO2=96.0 %, Resp=11 B/min After removing the current catheter a JR 5.0 INFINITI CATHETER FR 6 was advanced over a WIRE, EX CHANGE 260CM 7:55:46 3MMJ 260CM. 7:57:27 The RCA was injected and visualized at various angles. OMNIPAQUE, 350 MG, 150ML 150ML used. 7:58:20 Catheter was removed 7:58:42 HR=82 bpm, QLJD=975/92 mmhg, SpO2=96.0 %, Resp=13 B/min 7:58:47 Case End (Physician broke scrub) Assessment: Final Case, HR=57 BPM, Rhythm=reg, FDWW=372/103 mmhg, Chest Pain=0, Edema=None, Color=Normal, Skin = Warm, Dry Right Pulses: Ochoa Ped=1, Femoral=1, Radial=1 7:59:49 Lower Right Extremities: Color=Normal Lower Left Extremities: Color=Normal Neurological: State=Alert, Ox3, GALARZA Respiration: Resp=20 B/min, SpO2=98 %, O2=2 lpm 8:00:36 Catheter(s) removed without difficulty Radial Compression Device Used. 17 mLs of air placed in BAND, RADIAL COMPRESSION TR SHORT 24 2 4CM. Affected 8:00:37 hand 96 % O2 saturation. 8:00:42 No case complications noted. 8:00:43 Cine recording checked. 8:00:43 Bedside Report will be given. 8:00:47 A Left Heart Cath was performed. 8:03:41 HR=66 bpm, BDGD=788/92 mmhg, SpO2=96.0 %, Resp=12 B/min 8:09:30 [facility] - Contrast Media Used In Study Contrast Total Opened (mL) Total Used (mL) Total Wasted (mL) Omnipaque 80 80 0 End Study - Maximum Contrast Load Max Contrast Load (mL) 280.7 End Study - Radiation Exposure Fluoro Time (minutes) 7.8 End Study - Sheaths Sheaths Pulled By Sheath Hold Time (min) Tasha Joyner End Study - Patient Disposition Complications Transferred To Interventional Outcome No Telemetry Bed No attempt made
--- NOTE | 2018-03-16 08:16 | P.CATH ---
- Cardiac Catheterization Procedure Date: 03/16/18 Procedure Note:: Preprocedure Dx: NSTEMI Postprocedure Dx: Nonobstructive CAD Procedures Performed: Coronary Angiography via the right radial Indications: In brief, Mr. Oconnor is a very pleasant gentleman with a history of CAD who presented with HTN. worsening renal failure, and elevated troponin. Please see H and P for details. Description of the Procedure: After discussion of risks, benefits, and alternatives the patient was brought to the laboratory assistant in a non sedated state. He was sterilely prepped and draped in a usual fashion.1% lidocaine solution was used for anesthesia and we placed a 6F sheath into the right radial artery. We then used a JR5 to engage the RCA. This was exchanged for a JL 3.5 to engage the left main. Images obtained after contrast dye injection. We limited the amount of dye given chronic kidney disease. FINDINGS: Right coronary artery: Dominant gives rise to the LETTY and PDA. There is mild ISR , remainder of the vessel has minimal luminal irregularities. Left main: Short caliber vessel which bifurcates into a left anterior descending and a left circumflex. This vessel has minimal luminal irregularities. Left Anterior Descending: Moderate caliber vessel that courses distally to wrap around the apex giving rise to multiple diagonal branches. There are minimal luminal irregularities. Left Circumflex: Moderate caliber vessel that courses distally within the AV grove, giving rise to multiple OM. There is approximate 50% diffuse disease of the AV grove circ. This is unchanged Summary: Nonobstructive CAD largely unchanged from prior angiograms Plan: Post Cath Hydration Control of BP Outpatient follow up.
[2018-03-16] MEDS ORDERED: Sodium Chlor 0.9% Inj 500 ML IV.CONT SCH (09:00)
--- NOTE | 2018-03-16 09:19 | P.PNIM ---
Subjective Interval history: Patient is a 62-year-old -[place] gentleman who came into the hospital initially last night with complaint of chest pain. It started 45 minutes prior to presentation radiating up towards his neck. Has a history of cardiac stents as well as stents in his groin. Has been here multiple times in the past for chest pain. States he is taking his multiple blood pressure medications and reports compliance. He denies any shortness of breath denies any nausea or any vomiting. Cardiology has been consulted and his troponins were noted to be positive on the first set. We will trend troponins and consult cardiology and get an echocardiogram Patient is chronically on Eliquis will continue this. Aspirin has been ordered Had some relief with nitroglycerin Patient's past medical history is significant for history of abdominal aortic aneurysm, diabetes mellitus, hypertension, history of coronary stenting as well as possible peripheral vascular stenting and peripheral vascular disease and history of a right hip replacement. Patient also has a history of renal insufficiency/probably chronic kidney disease stage III 03-16 HAD CARDIAC CATH NO INTERVENTION DC TO HOME TODAY DW RN AND PT AND FAMILY AND CARDIOLOGY Discharge to home Physical Exam Vital signs: Vital Signs 03/15/18 12:00 03/15/18 16:00 03/15/18 20:00 Temperature 98.0 F 97.7 F Pulse Rate 65 60 66 Respiratory Rate 18 18 17 Blood Pressure 186/88 H 156/74 H 175/83 H Pulse Oximetry 97 98 99 03/16/18 00:00 03/16/18 04:00 03/16/18 08:12 Temperature 98.7 F 98.2 F Pulse Rate 62 66 Respiratory Rate 17 18 Blood Pressure 198/95 H 191/81 H Pulse Oximetry 99 97 100 Narrative: GENERAL: Awake alert and oriented 3 talkative and cooperative SKIN: Warm and dry. HEAD: Atraumatic. Normocephalic. EYES: Pupils equal and round. No scleral icterus. No injection or drainage. ENT: No nasal bleeding or discharge. Mucous membranes pink and moist. NECK: Trachea midline. No JVD. CARDIOVASCULAR: Regular rate and rhythm. RESPIRATORY: No accessory muscle use. Clear to auscultation. Breath sounds equal bilaterally. GASTROINTESTINAL: Abdomen soft, non-tender, nondistended. Hepatic and splenic margins not palpable. MUSCULOSKELETAL: Extremities without clubbing, cyanosis, or edema. No obvious deformities. NEUROLOGICAL: Awake and alert. No obvious cranial nerve deficits. Motor grossly within normal limits. Five out of 5 muscle strength in the arms and legs. Normal speech. PSYCHIATRIC: Appropriate mood and affect; insight and judgment normal. Results - Labs CBC & Chem 7: 03/16/18 05:50 03/16/18 05:50 Laboratory Results - last 24 hr 03/15/18 03/15/18 03/15/18 09:50 11:08 11:08 WBC RBC Hgb Hct MCV MCH MCHC RDW Plt Count MPV Prelim Diff (Auto) Neut % (Auto) Lymph % (Auto) [place] % (Auto) Eos % (Auto) Baso % (Auto) Neut # (Auto) Lymph # (Auto) [place] # (Auto) Eos # (Auto) Baso # (Auto) WBC Differential Diff Scan Differential Comment Sodium Potassium Chloride Carbon Dioxide Anion Gap BUN Creatinine Estimated GFR POC Glucose 204 H Random Glucose Hemoglobin A1c 10.4 H Calcium Phosphorus Magnesium Total Bilirubin AST ALT Alkaline Phosphatase Total Creatine Kinase 407 H CK-MB (CK-2) 2.6 CK-MB (CK-2) % 0.6 Troponin I 0.15 H Total Protein Albumin Triglycerides Cholesterol LDL Cholesterol, Calc HDL Cholesterol Cholesterol/HDL Ratio TSH Free T4 0.76 03/15/18 03/15/18 03/15/18 11:08 17:53 21:26 WBC RBC Hgb Hct MCV MCH MCHC RDW Plt Count MPV Prelim Diff (Auto) Neut % (Auto) Lymph % (Auto) [place] % (Auto) Eos % (Auto) Baso % (Auto) Neut # (Auto) Lymph # (Auto) [place] # (Auto) Eos # (Auto) Baso # (Auto) WBC Differential Diff Scan Differential Comment Sodium Potassium Chloride Carbon Dioxide Anion Gap BUN Creatinine Estimated GFR POC Glucose 410 H 434 H Random Glucose Hemoglobin A1c Calcium Phosphorus Magnesium Total Bilirubin AST ALT Alkaline Phosphatase Total Creatine Kinase CK-MB (CK-2) CK-MB (CK-2) % Troponin I Total Protein Albumin Triglycerides Cholesterol LDL Cholesterol, Calc HDL Cholesterol Cholesterol/HDL Ratio TSH 0.791 Free T4 03/16/18 03/16/18 03/16/18 02:29 05:50 05:50 WBC 5.5 RBC 4.77 Hgb 12.6 L Hct 37.7 L MCV 78.9 L MCH 26.5 L MCHC 33.5 RDW 19.1 H Plt Count 129 L MPV 8.6 Prelim Diff (Auto) Slide review pending Neut % (Auto) 64.0 Lymph % (Auto) 23.6 [place] % (Auto) 8.9 H Eos % (Auto) 3.1 Baso % (Auto) 0.4 Neut # (Auto) 3.5 Lymph # (Auto) 1.3 [place] # (Auto) 0.5 Eos # (Auto) 0.2 Baso # (Auto) 0.0 WBC Differential . Diff Scan Auto diff confirmed Differential Comment . Sodium 139 Potassium 4.5 Chloride 102 Carbon Dioxide 27.5 Anion Gap 10 BUN 38 H Creatinine 2.08 H Estimated GFR 40 L POC Glucose 341 H Random Glucose 274 H Hemoglobin A1c Calcium 9.0 Phosphorus 4.3 Magnesium 2.4 Total Bilirubin 0.4 AST 19 ALT 55 Alkaline Phosphatase 86 Total Creatine Kinase CK-MB (CK-2) CK-MB (CK-2) % Troponin I Total Protein 6.5 Albumin 2.7 L Triglycerides 194 H Cholesterol 119 L LDL Cholesterol, Calc 38 HDL Cholesterol 41.9 Cholesterol/HDL Ratio 2.84 TSH Free T4 - Imaging Chest X-Ray 03/14/18 23:02 CONCLUSION: Minimal bibasilar atelectasis. Otherwise negative. - Procedures Preprocedure Dx: NSTEMI Postprocedure Dx: Nonobstructive CAD Procedures Performed: Coronary Angiography via the right radial Indications: In brief, Mr. Oconnor is a very pleasant gentleman with a history of CAD who presented with HTN. worsening renal failure, and elevated troponin. Please see H and P for details. Description of the Procedure: After discussion of risks, benefits, and alternatives the patient was brought to the laborer prestressed concrete in a non sedated state. He was sterilely prepped and draped in a usual fashion.1% lidocaine solution was used for anesthesia and we placed a 6F sheath into the right radial artery. We then used a JR5 to engage the RCA. This was exchanged for a JL 3.5 to engage the left main. Images obtained after contrast dye injection. We limited the amount of dye given chronic kidney disease. FINDINGS: Right coronary artery: Dominant gives rise to the LETTY and PDA. There is mild ISR , remainder of the vessel has minimal luminal irregularities. Left main: Short caliber vessel which bifurcates into a left anterior descending and a left circumflex. This vessel has minimal luminal irregularities. Left Anterior Descending: Moderate caliber vessel that courses distally to wrap around the apex giving rise to multiple diagonal branches. There are minimal luminal irregularities. Left Circumflex: Moderate caliber vessel that courses distally within the AV grove, giving rise to multiple OM. There is approximate 50% diffuse disease of the AV grove circ. This is unchanged Summary: Nonobstructive CAD largely unchanged from prior angiograms Plan: Post Cath Hydration Control of BP Outpatient follow up. Assessment and Plan - Plan Chest pain/NSTEMI ASPIRIN TREND TROPONINS FASTING LIPIDS ECHO CARDIOLOGY CONSULT--had cardiac catheterization today which is stable discharge home DM SLIDING SCALE COVERAGE AC AND HS WAS ON LANTUS AT HOME 10UNITS SUBQ DAILY CONTINUE Renal insufficiency/chronic kidney disease stage III -Continue on furosemide Diabetic neuropathy continue on Lyrica 100 mg p.o. twice daily Chronic anticoagulation with Eliquis 2.5 mg twice daily Hypertension continue on clonidine 0.2 mg twice daily furosemide 20 mg p.o. daily potassium 20 mEq p.o. daily Trend troponins and cardiac enzymes A.m. labs Pain control as needed Await cardiology input as well as echo Prophylaxis with Pepcid DVT prophylaxis with his home dose of Eliquis 2.5 twice daily Code Status: Full code Discussed Condition With: RN and patient and cardiology and family Discharge Planning: DC to home today
--- NOTE | 2018-03-16 09:23 | P.DS ---
Date of admission: 03/15/18 01:44 Primary care physician: No Primary Care Physician Attending physician on discharge: Charlie Borja Anticipated date of discharge: 03/16/18 Brief History from admission: Patient is a 62-year-old -Chinese gentleman who came into the hospital initially last night with complaint of chest pain. It started 45 minutes prior to presentation radiating up towards his neck. Has a history of cardiac stents as well as stents in his groin. Has been here multiple times in the past for chest pain. States he is taking his multiple blood pressure medications and reports compliance. He denies any shortness of breath denies any nausea or any vomiting. Cardiology has been consulted and his troponins were noted to be positive on the first set. We will trend troponins and consult cardiology and get an echocardiogram Patient is chronically on Eliquis will continue this. Aspirin has been ordered Had some relief with nitroglycerin Patient's past medical history is significant for history of abdominal aortic aneurysm, diabetes mellitus, hypertension, history of coronary stenting as well as possible peripheral vascular stenting and peripheral vascular disease and history of a right hip replacement. Patient also has a history of renal insufficiency/probably chronic kidney disease stage III Patient update on day of discharge: Patient had cardiac catheterization can be discharged home today DS: Diagnosis - Discharge Diagnosis (1) Non-ST elevation CT (NSTEMI) Status: Acute (2) Hypertension Status: Chronic (3) Chest pain of uncertain etiology Status: Acute (4) Chest pain, atypical Status: Acute (5) History of coronary artery disease Status: Chronic DS: Summary Hospital Course: Patient is a 62-year-old -Chinese gentleman who came into the hospital initially last night with complaint of chest pain. It started 45 minutes prior to presentation radiating up towards his neck. Has a history of cardiac stents as well as stents in his groin. Has been here multiple times in the past for chest pain. States he is taking his multiple blood pressure medications and reports compliance. He denies any shortness of breath denies any nausea or any vomiting. Cardiology has been consulted and his troponins were noted to be positive on the first set. We will trend troponins and consult cardiology and get an echocardiogram Patient is chronically on Eliquis will continue this. Aspirin has been ordered Had some relief with nitroglycerin Patient's past medical history is significant for history of abdominal aortic aneurysm, diabetes mellitus, hypertension, history of coronary stenting as well as possible peripheral vascular stenting and peripheral vascular disease and history of a right hip replacement. Patient also has a history of renal insufficiency/probably chronic kidney disease stage III 03-16 HAD CARDIAC CATH NO INTERVENTION DC TO HOME TODAY DW RN AND PT AND FAMILY AND CARDIOLOGY Discharge to home - Time Spent with Patient Total time spent providing and/or coordinating discharge services: Greater than 30 minutes - Quality: VTE Deep Vein Thrombosis/Pulmonary Embolism Present on Admission: No Exam Vital signs: Vital Signs 03/15/18 12:00 03/15/18 16:00 03/15/18 20:00 Temperature 98.0 F 97.7 F Pulse Rate 65 60 66 Respiratory Rate 18 18 17 Blood Pressure 186/88 H 156/74 H 175/83 H Pulse Oximetry 97 98 99 03/16/18 00:00 03/16/18 04:00 03/16/18 08:12 Temperature 98.7 F 98.2 F Pulse Rate 62 66 Respiratory Rate 17 18 Blood Pressure 198/95 H 191/81 H Pulse Oximetry 99 97 100 Narrative: GENERAL: Awake alert and oriented 3 talkative and cooperative SKIN: Warm and dry. HEAD: Atraumatic. Normocephalic. EYES: Pupils equal and round. No scleral icterus. No injection or drainage. ENT: No nasal bleeding or discharge. Mucous membranes pink and moist. NECK: Trachea midline. No JVD. CARDIOVASCULAR: Regular rate and rhythm. RESPIRATORY: No accessory muscle use. Clear to auscultation. Breath sounds equal bilaterally. GASTROINTESTINAL: Abdomen soft, non-tender, nondistended. Hepatic and splenic margins not palpable. MUSCULOSKELETAL: Extremities without clubbing, cyanosis, or edema. No obvious deformities. NEUROLOGICAL: Awake and alert. No obvious cranial nerve deficits. Motor grossly within normal limits. Five out of 5 muscle strength in the arms and legs. Normal speech. PSYCHIATRIC: Appropriate mood and affect; insight and judgment normal. Results Procedures completed during hospitalization: Preprocedure Dx: NSTEMI Postprocedure Dx: Nonobstructive CAD Procedures Performed: Coronary Angiography via the right radial Indications: In brief, Mr. Oconnor is a very pleasant gentleman with a history of CAD who presented with HTN. worsening renal failure, and elevated troponin. Please see H and P for details. Description of the Procedure: After discussion of risks, benefits, and alternatives the patient was brought to the labor contract analyst in a non sedated state. He was sterilely prepped and draped in a usual fashion.1% lidocaine solution was used for anesthesia and we placed a 6F sheath into the right radial artery. We then used a JR5 to engage the RCA. This was exchanged for a JL 3.5 to engage the left main. Images obtained after contrast dye injection. We limited the amount of dye given chronic kidney disease. FINDINGS: Right coronary artery: Dominant gives rise to the LETTY and PDA. There is mild ISR , remainder of the vessel has minimal luminal irregularities. Left main: Short caliber vessel which bifurcates into a left anterior descending and a left circumflex. This vessel has minimal luminal irregularities. Left Anterior Descending: Moderate caliber vessel that courses distally to wrap around the apex giving rise to multiple diagonal branches. There are minimal luminal irregularities. Left Circumflex: Moderate caliber vessel that courses distally within the AV grove, giving rise to multiple OM. There is approximate 50% diffuse disease of the AV grove circ. This is unchanged Summary: Nonobstructive CAD largely unchanged from prior angiograms Plan: Post Cath Hydration Control of BP Outpatient follow up. Completed studies during hospitalization: Laboratory Results WBC 5.5 th/mm3 (4.0-11.0) 03/16/18 05:50 RBC 4.77 mil/mm3 (4.50-5.90) 03/16/18 05:50 Hgb 12.6 gm/dL (13.0-17.0) L 03/16/18 05:50 Hct 37.7 % (39.0-51.0) L 03/16/18 05:50 MCV 78.9 fL (80.0-100.0) L 03/16/18 05:50 MCH 26.5 pg (27.0-34.0) L 03/16/18 05:50 MCHC 33.5 % (32.0-36.0) 03/16/18 05:50 RDW 19.1 % (11.6-17.2) H 03/16/18 05:50 Plt Count 129 th/mm3 (150-450) L 03/16/18 05:50 MPV 8.6 fL (7.0-11.0) 03/16/18 05:50 Prelim Diff (Auto) Slide review pending 03/16/18 05:50 Neut % (Auto) 64.0 % (16.0-70.0) 03/16/18 05:50 Lymph % (Auto) 23.6 % (9.0-44.0) 03/16/18 05:50 Rincon % (Auto) 8.9 % (0.0-8.0) H 03/16/18 05:50 Eos % (Auto) 3.1 % (0.0-4.0) 03/16/18 05:50 Baso % (Auto) 0.4 % (0.0-2.0) 03/16/18 05:50 Neut # (Auto) 3.5 th/mm3 (1.8-7.7) 03/16/18 05:50 Lymph # (Auto) 1.3 th/mm3 (1.0-4.8) 03/16/18 05:50 Rincon # (Auto) 0.5 th/mm3 (0.0-0.9) 03/16/18 05:50 Eos # (Auto) 0.2 th/mm3 (0.0-0.4) 03/16/18 05:50 Baso # (Auto) 0.0 th/mm3 (0.0-0.2) 03/16/18 05:50 WBC Differential . 03/16/18 05:50 Diff Scan Auto diff confirmed 03/16/18 05:50 Differential Comment . 03/16/18 05:50 Sodium 139 meq/L (136-145) 03/16/18 05:50 Potassium 4.5 meq/L (3.5-5.1) 03/16/18 05:50 Chloride 102 meq/L (98-107) 03/16/18 05:50 Carbon Dioxide 27.5 meq/L (21.0-32.0) 03/16/18 05:50 Anion Gap 10 meq/L (5-15) 03/16/18 05:50 BUN 38 mg/dL (7-18) H 03/16/18 05:50 Creatinine 2.08 mg/dL (0.60-1.30) H 03/16/18 05:50 Estimated GFR 40 mL/min (>89) L 03/16/18 05:50 POC Glucose 341 mg/dl (68-110) H 03/16/18 02:29 Random Glucose 274 mg/dL (74-106) H 03/16/18 05:50 Hemoglobin A1c 10.4 % (4.3-6.0) H 03/15/18 11:08 Calcium 9.0 mg/dL (8.5-10.1) 03/16/18 05:50 Phosphorus 4.3 mg/dL (2.5-4.9) 03/16/18 05:50 Magnesium 2.4 mg/dL (1.5-2.5) 03/16/18 05:50 Total Bilirubin 0.4 mg/dL (0.2-1.0) 03/16/18 05:50 AST 19 U/L (15-37) 03/16/18 05:50 ALT 55 U/L (12-78) 03/16/18 05:50 Alkaline Phosphatase 86 U/L (45-117) 03/16/18 05:50 Total Creatine Kinase 407 U/L (39-308) H 03/15/18 11:08 CK-MB (CK-2) 2.6 ng/mL (0.5-3.6) 03/15/18 11:08 CK-MB (CK-2) % 0.6 % (0.0-4.0) 03/15/18 11:08 Troponin I 0.15 ng/mL (0.02-0.05) H 03/15/18 11:08 B-Natriuretic Peptide 70 pg/mL (0-100) 03/14/18 23:05 Total Protein 6.5 g/dL (6.4-8.2) 03/16/18 05:50 Albumin 2.7 g/dL (3.4-5.0) L 03/16/18 05:50 Triglycerides 194 mg/dL (42-150) H 03/16/18 05:50 Cholesterol 119 mg/dL (120-200) L 03/16/18 05:50 LDL Cholesterol, Calc 38 mg/dL (0-99) 03/16/18 05:50 HDL Cholesterol 41.9 mg/dL (40.0-60.0) 03/16/18 05:50 Cholesterol/HDL Ratio 2.84 Ratio 03/16/18 05:50 TSH 0.791 uIU/mL (0.358-3.740) 03/15/18 11:08 Free T4 0.76 ng/dL (0.76-1.46) 03/15/18 11:08 Impressions Chest X-Ray 03/14/18 23:02 CONCLUSION: Minimal bibasilar atelectasis. Otherwise negative. Labs on day of discharge: Labs from last 24 hours 03/16/18 03/16/18 03/16/18 05:50 05:50 02:29 WBC 5.5 RBC 4.77 Hgb 12.6 L Hct 37.7 L MCV 78.9 L MCH 26.5 L MCHC 33.5 RDW 19.1 H Plt Count 129 L MPV 8.6 Prelim Diff (Auto) Slide review pending Neut % (Auto) 64.0 Lymph % (Auto) 23.6 Rincon % (Auto) 8.9 H Eos % (Auto) 3.1 Baso % (Auto) 0.4 Neut # (Auto) 3.5 Lymph # (Auto) 1.3 Rincon # (Auto) 0.5 Eos # (Auto) 0.2 Baso # (Auto) 0.0 WBC Differential . Diff Scan Auto diff confirmed Differential Comment . Sodium 139 Potassium 4.5 Chloride 102 Carbon Dioxide 27.5 Anion Gap 10 BUN 38 H Creatinine 2.08 H Estimated GFR 40 L POC Glucose 341 H Random Glucose 274 H Hemoglobin A1c Calcium 9.0 Phosphorus 4.3 Magnesium 2.4 Total Bilirubin 0.4 AST 19 ALT 55 Alkaline Phosphatase 86 Total Creatine Kinase CK-MB (CK-2) CK-MB (CK-2) % Troponin I Total Protein 6.5 Albumin 2.7 L Triglycerides 194 H Cholesterol 119 L LDL Cholesterol, Calc 38 HDL Cholesterol 41.9 Cholesterol/HDL Ratio 2.84 TSH Free T4 03/15/18 03/15/18 03/15/18 21:26 17:53 11:08 WBC RBC Hgb Hct MCV MCH MCHC RDW Plt Count MPV Prelim Diff (Auto) Neut % (Auto) Lymph % (Auto) Rincon % (Auto) Eos % (Auto) Baso % (Auto) Neut # (Auto) Lymph # (Auto) Rincon # (Auto) Eos # (Auto) Baso # (Auto) WBC Differential Diff Scan Differential Comment Sodium Potassium Chloride Carbon Dioxide Anion Gap BUN Creatinine Estimated GFR POC Glucose 434 H 410 H Random Glucose Hemoglobin A1c Calcium Phosphorus Magnesium Total Bilirubin AST ALT Alkaline Phosphatase Total Creatine Kinase CK-MB (CK-2) CK-MB (CK-2) % Troponin I Total Protein Albumin Triglycerides Cholesterol LDL Cholesterol, Calc HDL Cholesterol Cholesterol/HDL Ratio TSH 0.791 Free T4 03/15/18 03/15/18 03/15/18 11:08 11:08 09:50 WBC RBC Hgb Hct MCV MCH MCHC RDW Plt Count MPV Prelim Diff (Auto) Neut % (Auto) Lymph % (Auto) Rincon % (Auto) Eos % (Auto) Baso % (Auto) Neut # (Auto) Lymph # (Auto) Rincon # (Auto) Eos # (Auto) Baso # (Auto) WBC Differential Diff Scan Differential Comment Sodium Potassium Chloride Carbon Dioxide Anion Gap BUN Creatinine Estimated GFR POC Glucose 204 H Random Glucose Hemoglobin A1c 10.4 H Calcium Phosphorus Magnesium Total Bilirubin AST ALT Alkaline Phosphatase Total Creatine Kinase 407 H CK-MB (CK-2) 2.6 CK-MB (CK-2) % 0.6 Troponin I 0.15 H Total Protein Albumin Triglycerides Cholesterol LDL Cholesterol, Calc HDL Cholesterol Cholesterol/HDL Ratio TSH Free T4 0.76 - Impressions ITS Impressions Chest X-Ray 03/14/18 23:02 CONCLUSION: Minimal bibasilar atelectasis. Otherwise negative. Discharge Plan - Discharge Disposition Patient Disposition: 01 Discharge Home - Discharge Condition Condition: Stable - Discharge Order Discharge Orders: Discharge Order (Routine); Ordered 03/16/18 Ordered By: Charlie Borja - Discharge Details Anticipated Discharge Date: 03/16/18 Discharge Comment: DC TO HOME - Physicians Team Primary Care Provider: Primary Care [facility],No Attending Provider: Charlie Borja Other Providers: Logan Hutson MD ; [employer]
== END 2018-03-16 11:00 | disposition home or self-care (01) ==
LOC: NEPC 22:32 → NEDA 22:32 → NEPHCDU 03-15 02:56 → HCIS 03-16 07:58
PROVIDERS: ADMIT Hospitalist; ATTEND Hospitalist

== ENCOUNTER 2018-04-23 21:04 | Observation (INO) ==
[2018-04-23] MEDS ORDERED: hydrALAZINE HCl Inj 20 MG/ML Vial IV.PUSH ONE ×2 (21:39→22:48)
[2018-04-23] MEDS ORDERED: Morphine Inj 4 MG/ML Vial IV.PUSH ONE (21:39)
--- NOTE | 2018-04-23 21:49 | XR ---
EXAM DATE: 04/23/2018 9:31 PM EDT AGE/SEX: 62 years / Male INDICATIONS: Chest pain. CLINICAL DATA: This is the patient's initial encounter. Patient reports that signs and symptoms have been present for 1 day and indicates a pain score of 8/10. MEDICAL/SURGICAL HISTORY: . Cardiovascular disease. . Cardiac stent. COMPARISON: [facility] [place], CHEST 1V SINGLE AP, 03/20/2018. . FINDINGS: A single AP view of the chest demonstrates the lungs to be symmetrically aerated without evidence of mass, infiltrate or effusion. The cardiomediastinal contours are unremarkable. Osseous structures a re intact. CONCLUSION: Lungs are clear. Electronically signed by: Niko Boles MD 04/23/2018 9:47 PM EDT
[2018-04-23 22:33] LABS: Baso % (Auto) 0.6 % (0.0-2.0); Eos # (Auto) 0.1 th/mm3 (0.0-0.4); Eos % (Auto) 1.8 % (0.0-4.0); Hematocrit 35.8 % (39.0-51.0); Hemoglobin 11.8 gm/dL (13.0-17.0); Lymph # (Auto) 1.4 th/mm3 (1.0-4.8); Lymph % (Auto) 21.7 % (9.0-44.0); Mean Corpuscular Hemoglobin 27.1 pg (27.0-34.0); Mean Corpuscular Volume 82.3 fL (80.0-100.0); Mean Platelet Volume 7.5 fL (7.0-11.0); Mono # (Auto) 0.6 th/mm3 (0.0-0.9); Mono % (Auto) 9.9 % (0.0-8.0); Neut # (Auto) 4.2 th/mm3 (1.8-7.7); Platelet Count 166 th/mm3 (150-450); Red Blood Count 4.35 mil/mm3 (4.50-5.90); Red Cell Distribution Width 17.2 % (11.6-17.2); White Blood Count 6.3 th/mm3 (4.0-11.0)
--- NOTE | 2018-04-23 22:48 | ED ---
HPI General Chief Complaint: Chest Pain Stated Complaint: Chest Pain Time Seen by Provider: 04/23/18 21:34 Source: patient Mode of arrival: EMS Limitations: no limitations History of Present Illness HPI narrative: Patient complaint of substernal pain onset approximately an hour prior to arrival (193) while at rest pressure-like 8 out of 10 nonradiating originally then started to affect his neck and as well (the patient decided to come in and be evaluated.) pmhx: htn, dm, ckd, copd, chronic back pain. MD complaint: Reports chest pain STEMI Alert: No Duration: constant Onset: during rest Pain location: Reports substernal Severity: moderate Severity scale (1-10): 8 Quality: Reports tightness Pain radiation: Reports none Relieving factors: nothing Exacerbating factors: nothing Treatments prior to arrival chest pain: Reports none Related Data Home Medications Medication Instructions Recorded Confirmed apixaban [Eliquis] 2.5 mg PO BID 01/15/18 05/03/18 potassium chloride 20 meq PO DAILY 01/15/18 05/03/18 pregabalin [Lyrica] 100 mg PO BID 03/14/18 05/03/18 Previous Rx's Medication Instructions Recorded aspirin 81 mg PO DAILY #30 tab 04/24/18 carvedilol [Coreg] 25 mg PO BID 30 Days #120 tab 04/24/18 isosorbide mononitrate 60 mg PO DAILY@0700 #30 tab 04/24/18 torsemide 20 mg PO DAILY #30 tab 04/24/18 clonidine HCl [Catapres] 0.2 mg PO BID #120 tab 05/04/18 hydrocodone-acetaminophen 1 tab PO Q6H PRN tab 05/04/18 amlodipine [Norvasc] 5 mg PO DAILY #30 tab 05/05/18 insulin glargine [Lantus U-100 50 unit SUB-Q BID #0 ml 05/05/18 Insulin] Allergies Allergy/AdvReac Type Severity Reaction Status Date / Time benazepril Allergy Severe ANGIOEDEMA Verified 05/03/18 02:34 captopril Allergy Severe ANGIOEDEMA Verified 05/03/18 02:34 enalaprilat Allergy Severe Edema Verified 05/03/18 02:34 fosinopril Allergy Severe ANGIOEDEMA Verified 05/03/18 02:34 lisinopril Allergy Severe ANGIOEDEMA Verified 05/03/18 02:34 quinapril Allergy Severe ANGIOEDEMA Verified 05/03/18 02:34 DAWIT Inhibitors Allergy Swelling Verified 05/03/18 02:34 of Lip/Tongue/Throat hydromorphone AdvReac Intermediate ITCHING Verified 05/03/18 02:34 Review of Systems ROS: all other systems reviewed are negative PMFSH History History Provided By: Patient Medical History Medical History Chronic anticoagulation (Acute) Hx of abdominal aortic aneurysm (Acute) Hypertension (Acute) Diabetes (Acute) COPD (chronic obstructive pulmonary disease) (Acute) Chronic back pain (Acute) Chronic kidney disease (Acute) Hyperlipidemia (Acute) Peripheral vascular disease (Acute) Renal mass (Acute) Surgical History Surgical History H/O heart artery stent (Acute) History of hip replacement (Acute) History of cholecystectomy (Acute) Status post femoral-popliteal bypass surgery (Acute) Family History Family History Other Family history of hypertension Social History Social History Substance History: Past History Second Hand Smoke Exposure: No Smoking Status: Former smoker Tobacco Type: Cigarettes How Often Do You Have a Drink Containing Alcohol: Never Recent Travel in [place] within the Last 8 Weeks: No Recent Out of Country Travel within the Last 8 Weeks: No Immunization History Tetanus Immunization Year if Known: 2013 Exam Narrative Exam Narrative: GENERAL: Well-nourished, well-developed patient in no apparent distress. SKIN: Warm and dry. HEAD: Atraumatic. Normocephalic. EYES: Pupils equal and round. No scleral icterus. No injection or drainage. ENT: No nasal bleeding or discharge. Mucous membranes pink and moist. NECK: Trachea midline. No JVD. CARDIOVASCULAR: Regular rate and rhythm. no rubs or gallops RESPIRATORY: No accessory muscle use. Clear to auscultation. Breath sounds equal bilaterally. GASTROINTESTINAL:obese, Abdomen soft, non-tender, nondistended. No rebound or guarding MUSCULOSKELETAL: Extremities without clubbing, cyanosis, or edema. No obvious deformities. NEUROLOGICAL: Awake and alert. No obvious cranial nerve deficits. Motor grossly within normal limits. Five out of 5 muscle strength in the arms and legs. Normal speech. PSYCHIATRIC: Appropriate mood and affect; insight and judgment normal. Course Initial Documented Vital Signs Temperature 98.1 F 04/23/18 21:12 Pulse Rate 74 04/23/18 21:12 Respiratory Rate 18 04/23/18 21:12 Blood Pressure 218/101 H 04/23/18 21:12 Pulse Oximetry 97 04/23/18 21:12 Last Documented Vital Signs Temperature 97.9 F 04/24/18 16:00 Pulse Rate 98 H 04/24/18 17:00 Respiratory Rate 18 04/24/18 16:00 Blood Pressure 147/74 H 04/24/18 16:00 Pulse Oximetry 96 04/24/18 16:00 Medical Decision Making MDM Narrative Medical decision making narrative: Due to recent catheterizations study showing no major occlusive disease requiring stenting in February 2018, will perform a cardiac enzyme x1 if negative will discharge Medical Screen Exam Complete: Yes Emergency Medical Condition: Yes Differential Diagnosis Differential Diagnosis: Pneumonia versus pleural effusion versus musculoskeletal Medical Records Medical records reviewed: Yes I reviewed the patient's medical records. Patient had a heart catheterization in February 2018 which did not show any major occlusive disease Lab Data Lab results reviewed: Yes I reviewed the patient's lab results. Result diagrams: 04/23/18 22:15 04/23/18 22:15 Lab Results 04/23/18 04/23/18 04/23/18 Range/Units 22:15 22:15 22:15 WBC 6.3 (4.0-11.0) th/mm3 RBC 4.35 L (4.50-5.90) mil/mm3 Hgb 11.8 L (13.0-17.0) gm/dL Hct 35.8 L (39.0-51.0) % MCV 82.3 (80.0-100.0) fL MCH 27.1 (27.0-34.0) pg MCHC 33.0 (32.0-36.0) % RDW 17.2 (11.6-17.2) % Plt Count 166 (150-450) th/mm3 MPV 7.5 (7.0-11.0) fL Neut % (Auto) 66.0 (16.0-70.0) % Lymph % (Auto) 21.7 (9.0-44.0) % Gregory % (Auto) 9.9 H (0.0-8.0) % Eos % (Auto) 1.8 (0.0-4.0) % Baso % (Auto) 0.6 (0.0-2.0) % Neut # (Auto) 4.2 (1.8-7.7) th/mm3 Lymph # (Auto) 1.4 (1.0-4.8) th/mm3 [place] # (Auto) 0.6 (0.0-0.9) th/mm3 Eos # (Auto) 0.1 (0.0-0.4) th/mm3 Baso # (Auto) 0.0 (0.0-0.2) th/mm3 WBC Differential . Differential Comment Auto diff final Sodium (136-145) meq/L Potassium (3.5-5.1) meq/L Chloride (98-107) meq/L Carbon Dioxide (21.0-32.0) meq/L Anion Gap (5-15) meq/L BUN (7-18) mg/dL Creatinine (0.60-1.30) mg/dL Estimated GFR (>89) mL/min POC Glucose (68-110) mg/dl Random Glucose (74-106) mg/dL Calcium (8.5-10.1) mg/dL Total Bilirubin (0.2-1.0) mg/dL AST (15-37) U/L ALT (12-78) U/L Alkaline Phosphatase (45-117) U/L Total Creatine Kinase (39-308) U/L CK-MB (CK-2) (0.5-3.6) ng/mL CK-MB (CK-2) % (0.0-4.0) % Troponin I (0.02-0.05) ng/mL B-Natriuretic Peptide 93 (0-100) pg/mL Total Protein (6.4-8.2) g/dL Albumin (3.4-5.0) g/dL Lipase 247 (73-393) U/L Urine Opiates Screen (Neg) Ur Barbiturates Screen (Neg) Ur Amphetamines Screen (Neg) U Benzodiazepines Scrn (Neg) Urine Cocaine Screen (Neg) U Cannabinoids Screen (Neg) 04/23/18 04/24/18 04/24/18 Range/Units 22:15 03:40 04:10 WBC (4.0-11.0) th/mm3 RBC (4.50-5.90) mil/mm3 Hgb (13.0-17.0) gm/dL Hct (39.0-51.0) % MCV (80.0-100.0) fL MCH (27.0-34.0) pg MCHC (32.0-36.0) % RDW (11.6-17.2) % Plt Count (150-450) th/mm3 MPV (7.0-11.0) fL Neut % (Auto) (16.0-70.0) % Lymph % (Auto) (9.0-44.0) % Gregory % (Auto) (0.0-8.0) % Eos % (Auto) (0.0-4.0) % Baso % (Auto) (0.0-2.0) % Neut # (Auto) (1.8-7.7) th/mm3 Lymph # (Auto) (1.0-4.8) th/mm3 Gregory # (Auto) (0.0-0.9) th/mm3 Eos # (Auto) (0.0-0.4) th/mm3 Baso # (Auto) (0.0-0.2) th/mm3 WBC Differential Differential Comment Sodium 143 (136-145) meq/L Potassium 3.8 (3.5-5.1) meq/L Chloride 106 (98-107) meq/L Carbon Dioxide 30.7 (21.0-32.0) meq/L Anion Gap 6 (5-15) meq/L BUN 29 H (7-18) mg/dL Creatinine 2.09 H (0.60-1.30) mg/dL Estimated GFR 39 L (>89) mL/min POC Glucose 190 H (68-110) mg/dl Random Glucose 236 H (74-106) mg/dL Calcium 8.8 (8.5-10.1) mg/dL Total Bilirubin 0.4 (0.2-1.0) mg/dL AST 22 (15-37) U/L ALT 47 (12-78) U/L Alkaline Phosphatase 95 (45-117) U/L Total Creatine Kinase 358 H 307 (39-308) U/L CK-MB (CK-2) 3.1 (0.5-3.6) ng/mL CK-MB (CK-2) % 0.9 (0.0-4.0) % Troponin I 0.09 H 0.10 H (0.02-0.05) ng/mL B-Natriuretic Peptide (0-100) pg/mL Total Protein 6.8 (6.4-8.2) g/dL Albumin 3.0 L (3.4-5.0) g/dL Lipase (73-393) U/L Urine Opiates Screen (Neg) Ur Barbiturates Screen (Neg) Ur Amphetamines Screen (Neg) U Benzodiazepines Scrn (Neg) Urine Cocaine Screen (Neg) U Cannabinoids Screen (Neg) 04/24/18 04/24/18 04/24/18 Range/Units 08:24 10:50 12:25 WBC (4.0-11.0) th/mm3 RBC (4.50-5.90) mil/mm3 Hgb (13.0-17.0) gm/dL Hct (39.0-51.0) % MCV (80.0-100.0) fL MCH (27.0-34.0) pg MCHC (32.0-36.0) % RDW (11.6-17.2) % Plt Count (150-450) th/mm3 MPV (7.0-11.0) fL Neut % (Auto) (16.0-70.0) % Lymph % (Auto) (9.0-44.0) % Gregory % (Auto) (0.0-8.0) % Eos % (Auto) (0.0-4.0) % Baso % (Auto) (0.0-2.0) % Neut # (Auto) (1.8-7.7) th/mm3 Lymph # (Auto) (1.0-4.8) th/mm3 [place] # (Auto) (0.0-0.9) th/mm3 Eos # (Auto) (0.0-0.4) th/mm3 Baso # (Auto) (0.0-0.2) th/mm3 WBC Differential Differential Comment Sodium (136-145) meq/L Potassium (3.5-5.1) meq/L Chloride (98-107) meq/L Carbon Dioxide (21.0-32.0) meq/L Anion Gap (5-15) meq/L BUN (7-18) mg/dL Creatinine (0.60-1.30) mg/dL Estimated GFR (>89) mL/min POC Glucose 156 H 300 H (68-110) mg/dl Random Glucose (74-106) mg/dL Calcium (8.5-10.1) mg/dL Total Bilirubin (0.2-1.0) mg/dL AST (15-37) U/L ALT (12-78) U/L Alkaline Phosphatase (45-117) U/L Total Creatine Kinase 278 (39-308) U/L CK-MB (CK-2) (0.5-3.6) ng/mL CK-MB (CK-2) % (0.0-4.0) % Troponin I 0.10 H (0.02-0.05) ng/mL B-Natriuretic Peptide (0-100) pg/mL Total Protein (6.4-8.2) g/dL Albumin (3.4-5.0) g/dL Lipase (73-393) U/L Urine Opiates Screen (Neg) Ur Barbiturates Screen (Neg) Ur Amphetamines Screen (Neg) U Benzodiazepines Scrn (Neg) Urine Cocaine Screen (Neg) U Cannabinoids Screen (Neg) 04/24/18 04/24/18 Range/Units 12:45 17:03 WBC (4.0-11.0) th/mm3 RBC (4.50-5.90) mil/mm3 Hgb (13.0-17.0) gm/dL Hct (39.0-51.0) % MCV (80.0-100.0) fL MCH (27.0-34.0) pg MCHC (32.0-36.0) % RDW (11.6-17.2) % Plt Count (150-450) th/mm3 MPV (7.0-11.0) fL Neut % (Auto) (16.0-70.0) % Lymph % (Auto) (9.0-44.0) % Gregory % (Auto) (0.0-8.0) % Eos % (Auto) (0.0-4.0) % Baso % (Auto) (0.0-2.0) % Neut # (Auto) (1.8-7.7) th/mm3 Lymph # (Auto) (1.0-4.8) th/mm3 Gregory # (Auto) (0.0-0.9) th/mm3 Eos # (Auto) (0.0-0.4) th/mm3 Baso # (Auto) (0.0-0.2) th/mm3 WBC Differential Differential Comment Sodium (136-145) meq/L Potassium (3.5-5.1) meq/L Chloride (98-107) meq/L Carbon Dioxide (21.0-32.0) meq/L Anion Gap (5-15) meq/L BUN (7-18) mg/dL Creatinine (0.60-1.30) mg/dL Estimated GFR (>89) mL/min POC Glucose 391 H (68-110) mg/dl Random Glucose (74-106) mg/dL Calcium (8.5-10.1) mg/dL Total Bilirubin (0.2-1.0) mg/dL AST (15-37) U/L ALT (12-78) U/L Alkaline Phosphatase (45-117) U/L Total Creatine Kinase (39-308) U/L CK-MB (CK-2) (0.5-3.6) ng/mL CK-MB (CK-2) % (0.0-4.0) % Troponin I (0.02-0.05) ng/mL B-Natriuretic Peptide (0-100) pg/mL Total Protein (6.4-8.2) g/dL Albumin (3.4-5.0) g/dL Lipase (73-393) U/L Urine Opiates Screen Pos H (Neg) Ur Barbiturates Screen Neg (Neg) Ur Amphetamines Screen Neg (Neg) U Benzodiazepines Scrn Neg (Neg) Urine Cocaine Screen Neg (Neg) U Cannabinoids Screen Neg (Neg) Imaging Data Radiologist's impression: Chest X-Ray 04/23/18 21:31 CONCLUSION: Lungs are clear. ECG Data EKG Prior to Arrival: No Attestation: I personally reviewed and interpreted this ECG as follows: Prior ECG tracings: not available for review Interpretation: Normal sinus rhythm, 75 bpm, normal intervals, no evidence of any acute ST elevation VT pattern. Discharge Plan Discharge Disposition Patient Disposition: Disch W/Home Health Service Discharge Condition Condition: Stable Discharge Order Discharge Orders: Discharge Order (Routine); Ordered 04/24/18 Ordered By: Eugene Vasquez Discharge Details Anticipated Discharge Date: 04/24/18 Diagnosis: Hypertension, Chest pain Physicians Team ED Provider: Rahul Reed Primary Care Provider: NON STAFF,PROVIDER Attending Provider: Eugene Vasquez Other Providers: Aparna Braun ; Sriram Borges Discharge Interventions Interventions: ED Discharge Assessment Last Done: 04/24/18 04:46 Status ED Status: Left Department Discharge Information Discharge Date/Time: 04/24/18 04:50
[2018-04-23 22:54] LABS: Alanine Aminotransferase 47 U/L (12-78); Anion Gap 6 meq/L (5-15); Aspartate Aminotransferase 22 U/L (15-37); Blood Urea Nitrogen 29 mg/dL (7-18); Calcium 8.8 mg/dL (8.5-10.1); Carbon Dioxide 30.7 meq/L (21.0-32.0); Chloride 106 meq/L (98-107); Glomerular Filtration Rate 39 mL/min (>89); Glucose,Random 236 mg/dL (74-106); Potassium 3.8 meq/L (3.5-5.1); Sodium 143 meq/L (136-145)
[2018-04-23 22:57] LABS: Alkaline Phosphatase 95 U/L (45-117); Creatine Kinase 358 U/L (39-308); Total Protein 6.8 g/dL (6.4-8.2); Troponin I 0.09 ng/mL (0.02-0.05)
[2018-04-23 23:09] LABS: CKMB Percent 0.9 % (0.0-4.0); Creatine Kinase MB 3.1 ng/mL (0.5-3.6)
[2018-04-24] MEDS ORDERED: Dextrose 50% in Water 50 ML Vial IV.PUSH PRN (00:06)
--- NOTE | 2018-04-24 00:16 | P.HP ---
History of Present Illness Service: [facility] Primary Care Physician: PROVIDER NON STAFF History of Present Illness: 62-year-old male with a past medical history significant for known renal mass, diabetes mellitus, hypertension, hyperlipidemia, chronic kidney disease, chronic back pain, COPD and peripheral vascular disease presents to the emergency department for the evaluation of chest pain. The patient reports that his chest pain started around 730 last night. He reports that it is left- sided and sharp and radiates up his left neck. He had a cardiac catheterization on 03/16/18 that was unchanged from previous and no interventions were performed. He denies any associated shortness of breath. No abdominal pain. No nausea/vomiting/diarrhea. No lateralizing signs/ symptoms. No fevers/chills Inpatient Certification: I certify that the inpatient services were ordered in accordance with Medicare regulations governing the order. This includes certification that hospital inpatient services are reasonable and necessary and in the case of services not specified as inpatient-only under 42 CFR 419.22(n), that they are appropriately provided as inpatient services in accordance to with the 2-midnight benchmark under 43 CFR 412.3(e) Estimated Total Length of Stay (Days): 2 Plans for Post Hospital Care: Not yet determined Review of Systems All other systems reviewed negative except as stated [facility] - History History Provided By: Patient - Medical History Medical History: Medical History (Last Updated 04/24/18 @ 00:11 by Aaliyah Molina MD) Chronic anticoagulation (Acute) Hx of abdominal aortic aneurysm (Acute) Hypertension (Acute) Diabetes (Acute) COPD (chronic obstructive pulmonary disease) Chronic back pain Chronic kidney disease Hyperlipidemia Peripheral vascular disease Renal mass - Surgical History Surgical History: Surgical History (Last Updated 04/24/18 @ 00:11 by Aaliyah Molina MD) H/O heart artery stent (Acute) History of hip replacement (Acute) History of cholecystectomy Status post femoral-popliteal bypass surgery - Family History Family History: Family History (Last Reviewed 04/24/18 @ 00:11 by Aaliyah Molina MD) Other Family history of hypertension - Tobacco History Second Hand Smoke Exposure: Yes Tobacco Use In Past 30 Days: Yes Smoking Status: Current every day smoker Tobacco Type: Cigarettes - Alcohol History How Often Do You Have a Drink Containing Alcohol: Monthly or less - Substance Use History Substance History: Past History - Travel History Recent Travel in the [facility] Within the Last 8 Weeks: No Recent Travel Out of the Country Within the Last 8 Weeks: No - Immunization History Tetanus Immunization: Unsure Tetanus Immunization Year if Known: 2013 Medications and Allergies Active Medications: Active Medications Sodium Chloride (Ns Flush) 2 ml IV.FLUSH UNSCH PRN PRN Reason: FLUSH AFTER USING IV ACCESS Allergies Allergy/AdvReac Type Severity Reaction Status Date / Time benazepril Allergy Severe ANGIOEDEMA Verified 03/24/18 08:09 captopril Allergy Severe ANGIOEDEMA Verified 03/24/18 08:09 enalaprilat Allergy Severe Edema Verified 03/24/18 08:09 fosinopril Allergy Severe ANGIOEDEMA Verified 03/24/18 08:09 lisinopril Allergy Severe ANGIOEDEMA Verified 03/24/18 08:09 quinapril Allergy Severe ANGIOEDEMA Verified 03/24/18 08:09 DAWIT Inhibitors Allergy Swelling Verified 03/24/18 08:09 of Lip/Tongue/Throat hydromorphone AdvReac Intermediate ITCHING Verified 03/24/18 08:09 Home Medications Medication Instructions Recorded Confirmed Type apixaban [Eliquis] 2.5 mg PO BID 01/15/18 04/23/18 History clonidine HCl 0.2 mg PO BID 01/15/18 04/23/18 History furosemide [Lasix] 20 mg PO DAILY 01/15/18 04/23/18 History insulin glargine [Lantus U-100 42 unit SUB-Q BID 01/15/18 04/23/18 History Insulin] potassium chloride 20 meq PO DAILY 01/15/18 04/23/18 History pregabalin [Lyrica] 100 mg PO BID 03/14/18 04/23/18 History Exam Vital signs: Vital Signs 04/23/18 21:12 04/23/18 21:14 04/23/18 22:16 Temperature 98.1 F Pulse Rate 74 Respiratory Rate 18 Blood Pressure 218/101 H Pulse Oximetry 97 96 97 04/23/18 22:27 04/23/18 22:55 Temperature Pulse Rate 76 80 Respiratory Rate 18 15 Blood Pressure 210/101 H 209/100 H Pulse Oximetry 96 Intake & Output 04/23/18 04/23/18 04/24/18 06:59 18:59 06:59 Weight 117.934 kg Narrative: Gen.: No acute distress Head: Normocephalic. Atraumatic. EENT: Pupils equal round and reactive to light. Nose without drainage. Airway intact. Throat without injection. Cardiovascular: Regular rate and rhythm. No murmurs, rubs or gallops. Respiratory: Lungs clear to auscultation bilaterally. No wheezes or rhonchi. Abdomen: Soft, nontender, nondistended. No peritoneal signs. Musculoskeletal: No gross deformities. No edema. Skin: No obvious rashes or erythema. Neuro: Sensory and motor grossly intact. Cranial nerves II through XII grossly intact. Results - Labs CBC & Chem 7: 04/23/18 22:15 04/23/18 22:15 Labs: Laboratory Results - last 24 hr 04/23/18 04/23/18 04/23/18 22:15 22:15 22:15 WBC 6.3 RBC 4.35 L Hgb 11.8 L Hct 35.8 L MCV 82.3 MCH 27.1 MCHC 33.0 RDW 17.2 Plt Count 166 MPV 7.5 Neut % (Auto) 66.0 Lymph % (Auto) 21.7 [place] % (Auto) 9.9 H Eos % (Auto) 1.8 Baso % (Auto) 0.6 Neut # (Auto) 4.2 Lymph # (Auto) 1.4 [place] # (Auto) 0.6 Eos # (Auto) 0.1 Baso # (Auto) 0.0 WBC Differential . Differential Comment Auto diff final Sodium Potassium Chloride Carbon Dioxide Anion Gap BUN Creatinine Estimated GFR Random Glucose Calcium Total Bilirubin AST ALT Alkaline Phosphatase Total Creatine Kinase CK-MB (CK-2) CK-MB (CK-2) % Troponin I B-Natriuretic Peptide 93 Total Protein Albumin Lipase 247 04/23/18 22:15 WBC RBC Hgb Hct MCV MCH MCHC RDW Plt Count MPV Neut % (Auto) Lymph % (Auto) [place] % (Auto) Eos % (Auto) Baso % (Auto) Neut # (Auto) Lymph # (Auto) [place] # (Auto) Eos # (Auto) Baso # (Auto) WBC Differential Differential Comment Sodium 143 Potassium 3.8 Chloride 106 Carbon Dioxide 30.7 Anion Gap 6 BUN 29 H Creatinine 2.09 H Estimated GFR 39 L Random Glucose 236 H Calcium 8.8 Total Bilirubin 0.4 AST 22 ALT 47 Alkaline Phosphatase 95 Total Creatine Kinase 358 H CK-MB (CK-2) 3.1 CK-MB (CK-2) % 0.9 Troponin I 0.09 H B-Natriuretic Peptide Total Protein 6.8 Albumin 3.0 L Lipase - Imaging Impressions Chest X-Ray 04/23/18 21:31 CONCLUSION: Lungs are clear. Caprini VTE Risk Assessment Caprini VTE Risk Assessment: Moderate/High Risk (score >= 2) Caprini Risk Assessment Model: Point Value = 1 Point Value = 2 Point Value = 3 Point Value = 5 Age 41-60 Minor surgery BMI > 25 kg/m2 Swollen legs Varicose veins or History of unexplained or recurrent spontaneous Oral contraceptives or hormone replacement Sepsis (< 1 month) Serious lung disease, including pneumonia (< 1 month) Abnormal pulmonary function Acute myocardial infarction Congestive heart failure (< 1 month) History of inflammatory bowel disease Medical patient at bed rest Age 61-74 Arthroscopic surgery Major open surgery (> 45 min) Laparoscopic surgery (> 45 min) Malignancy Confined to bed (> 72 hours) Immobilizing plaster cast Central venous access Age >= 75 History of VTE Family history of VTE Factor V Leiden Prothrombin [id number] Lupus anticoagulant Anticardiolipin antibodies Elevated serum homocysteine Heparin-induced thrombocytopenia Other congenital or acquired thrombophilia Stroke (< 1 month) Elective arthroplasty Hip, pelvis, or leg fracture Acute spinal cord injury (< 1 month) Prophylaxis Regimen: Total Risk Factor Score Risk Level Prophylaxis Regimen 0-1 Low Early ambulation 2 Moderate Order ONE of the following: *Sequential Compression Device (SCD) *Heparin 5000 units SQ BID 3-4 Higher Order ONE of the following medications: *Heparin 5000 units SQ TID *Enoxaparin/Lovenox 40 mg SQ daily (WT < 150 kg, CrCl > 30 mL/min) *Enoxaparin/Lovenox 30 mg SQ daily (WT < 150 kg, CrCl > 10-29 mL/min) *Enoxaparin/Lovenox 30 mg SQ BID (WT < 150 kg, CrCl > 30 mL/min) AND/OR *Sequential Compression Device (SCD) 5 or more Highest Order ONE of the following medications: *Heparin 5000 units SQ TID (Preferred with Epidurals) *Enoxaparin/Lovenox 40 mg SQ daily (WT < 150 kg, CrCl > 30 mL/min) *Enoxaparin/Lovenox 30 mg SQ daily (WT < 150 kg, CrCl > 10-29 mL/min) *Enoxaparin/Lovenox 30 mg SQ BID (WT < 150 kg, CrCl > 30 mL/min) AND *Sequential Compression Device (SCD) Assessment and Plan - Plan Assessment/plan: 1. Chest pain/elevated troponin EKG without signs of ischemia, personally reviewed Initial troponin 0.09 ACS rule out pending; serial troponins/EKGs Patient's senior enlisted advisor, Dr. Brooks consulted, appreciate recommendations 2. Renal mass Patient with known renal mass Scheduled for biopsy tomorrow Continue outpatient follow-up 3. Chronic kidney disease Creatinine 2.09, baseline Monitor renal function 4. Diabetes mellitus Holding long-acting insulin as patient n.p.o. Sliding-scale insulin Monitor blood glucose 5. Hypertension/hyperlipidemia/COPD/PVD Continue home medications FEN N.p.o. Electrolytes: Monitor and replete as needed NS at 100 cc/hour Sarah
[2018-04-24] MEDS: Morphine Inj 4 MG/ML Vial IV.PUSH PRN ×4 (02:11→17:09)
[2018-04-24] MEDS ORDERED: hydrALAZINE HCl Inj 20 MG/ML Vial IV.PUSH ONE (02:33)
[2018-04-24] MEDS: Sod Chloride 0.9% Inj 1,000 ML IV.CONT SCH ×2 (04:35→11:55)
[2018-04-24] MEDS: Insulin NovoLOG Aspart Correctional Sugar Inj SQ SCH ×4 (04:35→17:09)
[2018-04-24 04:40] LABS: Troponin I 0.1 ng/mL (0.02-0.05)
[2018-04-24] MEDS ORDERED: Furosemide 20 MG Tablet PO SCH (09:00)
[2018-04-24] MEDS ORDERED: Carvedilol 12.5 MG Tablet PO SCH (10:15)
--- NOTE | 2018-04-24 11:19 | MB ---
cc: Logan Hutson MD,Sriram Gresham,Keenan NUNEZ DATE: 04/24/2018 CHIEF COMPLAINT: Neck pain. HISTORY OF PRESENT ILLNESS: Elvin William is a 62-year-old man who is a frequent visitor to [facility]. He has severe hypertensive heart disease and chronic kidney disease, but also has coronary artery disease. One of the first things that I have discovered is that the medications that he is taking at home and what he is supposed to be taking and what he has listed in the hospital are all in disagreement. The patient does not bring a medication list or his bottles when he comes to see doctors either in the office or in the hospital setting. I have educated him how important this is going to need to be because the list of medicines that showed up on his med rec sheet are nothing like the medications he has at home and nothing like the medications that he is supposed to be on. He was just in the hospital recently and underwent a cardiac catheterization 03/16/2018 by my colleague, Dr. Sorenson. At that time, his blood pressure when he came in the ER was extremely elevated. His blood pressure when came to the ER this time is extremely elevated. The patient states he had pain in his neck. It felt like he had slept wrong on his neck. That has gone away. Also, he had pain on the right side of his neck that is different when he turns his head. He is actually not having any chest pain. He was 218/101 when he presented to the ER. Troponin is elevated, but not as much as it was in February. Troponins 0.9, 0.09, and 0.1, and it was 0.16 when he was just in in February. Creatinine is elevated at 2.09. He follows with Dr. Gresham, and he has seen my colleague, Dr. Borges in the office. MEDICATIONS: 1. Aspirin 81 mg daily. 2. Lyrica 100 mg p.o. b.i.d. 3. Carvedilol 25 mg p.o. b.i.d. 4. He is on clonidine. His home bottle says 0.1 t.i.d. and not the 0.2 b.i.d. that is written here. 5. He is supposed to be on Eliquis 2.5 b.i.d., but his home bottles list 5 b.i.d. 6. At home, he is on Glipizide 2.5 mg daily, but that has not been prescribed here. 7. He is on Imdur 60 mg q.a.m. 5. Lantus insulin. It is not clear if he is on losartan. This shows up on her office medication list. The patient was unable to verify that he is taking that. 6. He is on nifedipine. Last office notes said 90 mg daily, but at home, his bottles say 60 mg b.i.d. 7. Here he is on furosemide, but his diuretic at home was 10 mg of torsemide b.i.d. along with potassium 20 mEq once a day. 8. He is on rosuvastatin 40 mg daily and ezetimibe 10 mg daily. PAST MEDICAL HISTORY: 1. Coronary artery disease. He had 3.0 x 18 mm bare-metal Integrity stents placed in the mid and distal right coronary artery on 05/18/2010. On 07/28/2016, he had a 3.0 x 15 mm stent in the mid right coronary artery postdilated with a 3.5 mm noncompliant balloon. I believe this was a drug-eluting stent. His last catheterization was 03/16/2018. He had 50% disease in the AV groove portion of the circumflex artery that is small. His stents were okay. He was considered to be nonobstructive. 2. Severe hypertension with heart and renal disease. 3. Diabetes. 4. Hyperlipidemia. 5. Obesity. 6. Sickle cell trait. 7. Peripheral arterial disease. He is status post a previous left femoral tibial bypass that had to be redone. This was in 2007. 8. Abdominal aortic aneurysm that was repaired in 2012. PAST SURGICAL HISTORY: Includes his cardiac procedures, his left femoral tibial bypass that had to be redone. Cholecystectomy in 1999, left hip replacement in 2005, aortic aneurysm repair in 2012. FAMILY HISTORY: Positive for hypertension. SOCIAL HISTORY: Notable for previous smoking, quit in 2005. He is . REVIEW OF SYSTEMS: Noncontributory except as mentioned above. PHYSICAL EXAMINATION: GENERAL: Reveals an obese, pleasant man who is alert, in no acute distress. VITAL SIGNS: Charted. HEENT: Unremarkable. NECK: No JVD. No bruits. CHEST: Clear to auscultation. CARDIOVASCULAR: S1, S2. Regular rate and rhythm, 1/6 systolic ejection murmur. ABDOMEN: Obese, soft, nontender. EXTREMITIES: Reveal no clubbing or cyanosis. He has 1+ edema on the right, 2+ on the left with venous insufficiency changes. Pedal pulses are diminished. LABORATORY DATA: EKG shows sinus rhythm without acute ST-T wave changes. Troponins have been flat at 0.09 and 0.1. Creatinine is 2.09. Check hematocrit 35.8. Chest x-ray is negative. IMPRESSION: Chest pain. The patient has had recurrent admissions for chest pain, probably due to loss of vasodilator reserve from poorly controlled hypertension. Hypertension was poorly controlled prior to poor communication on his medications. The patient does not bring his medications with him to the doctors and hence, I do not think any of his doctors or hospitals have accurate medication list of what he is actually taking. PLAN: 1. I am going to go ahead and restart his Carvedilol 25 b.i.d. 2. Clonidine I am going to lower to 0.1 b.i.d. 3. Eliquis will be 2.5 b.i.d. 4. We will write for Imdur 60 mg daily. 5. I am going to hold off on adding losartan presently. 6. Nifedipine will be ordered 60 b.i.d. 7. Furosemide will be changed to Torsemide 10 b.i.d. 4. Simvastatin. 5. Zetia will be ordered. If his blood pressure remains stable, he can be discharged home. He does not need further cardiac workup insofar as he has had recent catheterization and no revascularization was indicated. I would recommend home health care followup if nothing else just to get his medications at home straightened out since I think that is the #1 problem that keeps him coming back to the hospital is not being on the right medications. MD RIVKA Basilio/rhona/stevie , 10:26 AM , 10:41 AM
[2018-04-24 11:46] LABS: Troponin I 0.1 ng/mL (0.02-0.05)
[2018-04-24 13:26] LABS: Amphetamine Screen,Urine Neg (Neg); Barbiturate Screen,Urine Neg (Neg); Cannabinoid Screen,Urine Neg (Neg); Cocaine Screen,Urine Neg (Neg)
[2018-04-24 13:28] LABS: Opiate Screen,Urine Pos (Neg)
--- NOTE | 2018-04-24 15:00 | P.PNIM ---
Subjective Interval history: The patient was resting in bed comfortably and anxious to go home. He said he spoke with cardiology and said he will take his medications as prescribed. In no acute complaints. Discussed with nursing. Physical Exam Vital signs: Vital Signs 04/23/18 21:12 04/23/18 21:14 04/23/18 22:16 Temperature 98.1 F Pulse Rate 74 Respiratory Rate 18 Blood Pressure 218/101 H Pulse Oximetry 97 96 97 04/23/18 22:27 04/23/18 22:55 04/24/18 02:47 Temperature Pulse Rate 76 80 Respiratory Rate 18 15 5 L Blood Pressure 210/101 H 209/100 H Pulse Oximetry 96 04/24/18 02:48 04/24/18 04:30 04/24/18 05:07 Temperature 98.1 F Pulse Rate 82 85 81 Respiratory Rate 14 15 18 Blood Pressure 205/100 H 170/95 H 206/110 H Pulse Oximetry 96 04/24/18 05:46 04/24/18 06:04 04/24/18 07:00 Temperature 98.1 F Pulse Rate 78 78 66 Respiratory Rate 16 Blood Pressure 165/85 H Pulse Oximetry 97 04/24/18 08:00 04/24/18 08:18 04/24/18 09:00 Temperature 98.3 F Pulse Rate 72 70 67 Respiratory Rate 16 Blood Pressure 154/89 H Pulse Oximetry 98 98 04/24/18 10:00 04/24/18 10:50 04/24/18 11:00 Temperature Pulse Rate 68 73 68 Respiratory Rate Blood Pressure Pulse Oximetry 04/24/18 11:36 04/24/18 12:00 04/24/18 13:02 Temperature 98.5 F Pulse Rate 75 67 75 Respiratory Rate 16 Blood Pressure 127/76 Pulse Oximetry 95 04/24/18 13:13 Temperature 98.5 F Pulse Rate 75 Respiratory Rate 16 Blood Pressure 127/76 Pulse Oximetry 95 Intake & Output 04/23/18 04/24/18 04/24/18 18:59 06:59 18:59 Intake Total 0 / 0 1000 / 1000 Balance 0 / 0 1000 / 1000 Weight 120 kg Intake: IV 1000 / 1000 NS Inj 1,000 ML @ 100 mls/hr IV 1000 / 1000 .CONT .Q10H CARLOZ Rx#:[id number] Oral 0 / 0 Other: # Voids 1 Narrative: Gen.: No acute distress Head: Normocephalic. Atraumatic. EENT: Pupils equal round and reactive to light. Nose without drainage. Airway intact. Throat without injection. Cardiovascular: Regular rate and rhythm. No murmurs, rubs or gallops. Respiratory: Lungs clear to auscultation bilaterally. No wheezes or rhonchi. Abdomen: Soft, nontender, nondistended. No peritoneal signs. Musculoskeletal: No gross deformities. 1+ edema. Skin: No obvious rashes or erythema. Neuro: Sensory and motor grossly intact. Cranial nerves II through XII grossly intact. Results - Labs CBC & Chem 7: 04/23/18 22:15 04/23/18 22:15 Laboratory Results - last 24 hr 04/23/18 04/23/18 04/23/18 22:15 22:15 22:15 WBC 6.3 RBC 4.35 L Hgb 11.8 L Hct 35.8 L MCV 82.3 MCH 27.1 MCHC 33.0 RDW 17.2 Plt Count 166 MPV 7.5 Neut % (Auto) 66.0 Lymph % (Auto) 21.7 [place] % (Auto) 9.9 H Eos % (Auto) 1.8 Baso % (Auto) 0.6 Neut # (Auto) 4.2 Lymph # (Auto) 1.4 [place] # (Auto) 0.6 Eos # (Auto) 0.1 Baso # (Auto) 0.0 WBC Differential . Differential Comment Auto diff final Sodium Potassium Chloride Carbon Dioxide Anion Gap BUN Creatinine Estimated GFR POC Glucose Random Glucose Calcium Total Bilirubin AST ALT Alkaline Phosphatase Total Creatine Kinase CK-MB (CK-2) CK-MB (CK-2) % Troponin I B-Natriuretic Peptide 93 Total Protein Albumin Lipase 247 Urine Opiates Screen Ur Barbiturates Screen Ur Amphetamines Screen U Benzodiazepines Scrn Urine Cocaine Screen U Cannabinoids Screen 04/23/18 04/24/18 04/24/18 22:15 03:40 04:10 WBC RBC Hgb Hct MCV MCH MCHC RDW Plt Count MPV Neut % (Auto) Lymph % (Auto) [place] % (Auto) Eos % (Auto) Baso % (Auto) Neut # (Auto) Lymph # (Auto) [place] # (Auto) Eos # (Auto) Baso # (Auto) WBC Differential Differential Comment Sodium 143 Potassium 3.8 Chloride 106 Carbon Dioxide 30.7 Anion Gap 6 BUN 29 H Creatinine 2.09 H Estimated GFR 39 L POC Glucose 190 H Random Glucose 236 H Calcium 8.8 Total Bilirubin 0.4 AST 22 ALT 47 Alkaline Phosphatase 95 Total Creatine Kinase 358 H 307 CK-MB (CK-2) 3.1 CK-MB (CK-2) % 0.9 Troponin I 0.09 H 0.10 H B-Natriuretic Peptide Total Protein 6.8 Albumin 3.0 L Lipase Urine Opiates Screen Ur Barbiturates Screen Ur Amphetamines Screen U Benzodiazepines Scrn Urine Cocaine Screen U Cannabinoids Screen 04/24/18 04/24/18 04/24/18 08:24 10:50 12:25 WBC RBC Hgb Hct MCV MCH MCHC RDW Plt Count MPV Neut % (Auto) Lymph % (Auto) [place] % (Auto) Eos % (Auto) Baso % (Auto) Neut # (Auto) Lymph # (Auto) [place] # (Auto) Eos # (Auto) Baso # (Auto) WBC Differential Differential Comment Sodium Potassium Chloride Carbon Dioxide Anion Gap BUN Creatinine Estimated GFR POC Glucose 156 H 300 H Random Glucose Calcium Total Bilirubin AST ALT Alkaline Phosphatase Total Creatine Kinase 278 CK-MB (CK-2) CK-MB (CK-2) % Troponin I 0.10 H B-Natriuretic Peptide Total Protein Albumin Lipase Urine Opiates Screen Ur Barbiturates Screen Ur Amphetamines Screen U Benzodiazepines Scrn Urine Cocaine Screen U Cannabinoids Screen 04/24/18 12:45 WBC RBC Hgb Hct MCV MCH MCHC RDW Plt Count MPV Neut % (Auto) Lymph % (Auto) [place] % (Auto) Eos % (Auto) Baso % (Auto) Neut # (Auto) Lymph # (Auto) [place] # (Auto) Eos # (Auto) Baso # (Auto) WBC Differential Differential Comment Sodium Potassium Chloride Carbon Dioxide Anion Gap BUN Creatinine Estimated GFR POC Glucose Random Glucose Calcium Total Bilirubin AST ALT Alkaline Phosphatase Total Creatine Kinase CK-MB (CK-2) CK-MB (CK-2) % Troponin I B-Natriuretic Peptide Total Protein Albumin Lipase Urine Opiates Screen Pos H Ur Barbiturates Screen Neg Ur Amphetamines Screen Neg U Benzodiazepines Scrn Neg Urine Cocaine Screen Neg U Cannabinoids Screen Neg - Imaging Impressions Chest X-Ray 04/23/18 21:31 CONCLUSION: Lungs are clear. Assessment and Plan - Plan Chest pain/elevated troponin EKG without signs of ischemia. Troponin elevated at 0.1. Cardiology consult appreciated. The pt had a recent catheterization. -telemetry. -medications were adjusted by cardiology. Imdur was added as well. -outpt follow-up with cardiology, who cleared the pt for discharge. -[facility] for home nursing recommended by cardiology to ensure medication compliance. Case management consult appreciated. Renal mass Patient with known renal mass. Scheduled for biopsy. -Continue outpatient follow-up. Chronic kidney disease Creatinine 2.09, baseline. -Monitor renal function and avoid nephrotoxins. Diabetes mellitus On insulin as an outpt. -Sliding-scale insulin. -resume regimen upon discharge. PPx: [facility] Discharge Planning: D/c home today
--- NOTE | 2018-04-24 15:02 | P.DCO ---
- Home Health Nursing Order: Medical education, Signs/symptoms of disease process, Diabetic education , CHF education, Medication education-adverse effect, Nursing assessment with vital signs - Case Management Consult Yes - Certification I have seen patient Elvin William on 04/24/18. My clinical findings support the need for the requested home health care services because: Medication compliance is questionable I certify that my clinical findings support that this patient is homebound because: Unsteady gait/balance
--- NOTE | 2018-04-24 15:08 | ECG ---
Date Performed: 04/23/2018 Time Performed: 21:09:44 PTAGE: 62 years EKG: Sinus rhythm NORMAL ECG PREVIOUS TRACING : 03/24/2018 07.43 Since the previous tracing, no significant change noted DOCTOR: Lex Corbin Interpretating Date/Time 04/24/2018 15:06:33
--- NOTE | 2018-04-24 15:08 | ECG ---
Date Performed: 04/24/2018 Time Performed: 04:07:23 PTAGE: 62 years EKG: Sinus rhythm NORMAL ECG PREVIOUS TRACING : 04/23/2018 21.09 Since the previous tracing, no significant change noted DOCTOR: Lex Corbin Interpretating Date/Time 04/24/2018 15:06:47
--- NOTE | 2018-04-24 15:12 | ECG ---
Date Performed: 04/24/2018 Time Performed: 10:10:58 PTAGE: 62 years EKG: Sinus rhythm . Inferior/lateral T wave changes are nonspecific Borderline ECG PREVIOUS TRACING 04/24/2018 @ 10/21/2017 Since the previous tracing, no significant bear e noted DOCTOR: Lex Corbin Interpretating Date/Time 04/24/2018 15:10:39
[2018-04-24 16:16] VITALS: BP 147/74; RESP 18; TEMP 97.9; O2SAT 96
[2018-04-24 17:04] VITALS: PULSE 98
[2018-04-25] MEDS ORDERED: Isosorbide Mononitrate 60 MG ER 24HR Tablet (Imdur) PO SCH (07:00)
[2018-04-25] MEDS ORDERED: Torsemide 20 MG Tablet PO SCH (09:00)
== END 2018-04-24 17:31 | disposition home health service (06) ==
LOC: NEPE 21:04 → INTOOBSV 23:01 → NEDA 23:01 → NEDH 04-24 04:10 → HCIS 04-24 04:50
PROVIDERS: ADMIT Hospitalist; ATTEND Hospitalist

== ENCOUNTER 2018-05-03 02:28 | Inpatient (IN) ==
--- NOTE | 2018-05-03 02:50 | ED ---
HPI General Chief Complaint: Chest Pain Stated Complaint: Medical Time Seen by Provider: 05/03/18 02:41 Source: patient Mode of arrival: ambulatory Limitations: no limitations History of Present Illness HPI narrative: 62-year-old male presents to the emergency department by private transportation complaining of chest pain and low back pain. Patient states his low back pain is chronic and typical of his chronic low back pain. Patient states he is prescribed Lortab for this and provides no relief. Patient states that his chest pain reminds him of his heart type chest pain. Patient has history of peripheral vascular disease and has had stenting of an abdominal aortic aneurysm and femoral stents. Patient denies any fever chills nausea vomiting shortness of breath sweats palpitations referred neck jaw upper back mid scapular arm or upper abdominal pain. Patient denies any lower extremity numbness tingling weakness or paresthesia. No saddle anesthesia. No bladder or bowel dysfunction. Patient states he is concerned because recently had underwent an MRI of his spine for his chronic back pain and it was identified that he had a mass on his kidney and he is afraid that his back pain is related to his mass. Patient has been referred to an oncologist. Patient states he has not yet been diagnosed with cancer. MD complaint: Reports chest pain STEMI Alert: No Onset (ago): hour(s) Duration: intermittent Onset: during rest and during exertion Pain location: Reports left chest Severity: severe Severity scale (1-10): 7 Quality: Reports tightness and dull Pain radiation: Reports none Relieving factors: remaining still Exacerbating factors: movement Context: Denies recent illness, recent surgery, recent immobilization, recent travel, trauma/injury, new medications and history of DVT/PE Associated symptoms: Denies nausea, vomiting, diaphoresis, dyspnea, sense of impending doom, syncope, palpitations, fever, cough and leg swelling Treatments prior to arrival chest pain: Reports none Related Data Home Medications Medication Instructions Recorded Confirmed apixaban [Eliquis] 2.5 mg PO BID 01/15/18 04/23/18 insulin glargine [Lantus U-100 42 unit SUB-Q BID 01/15/18 04/23/18 Insulin] potassium chloride 20 meq PO DAILY 01/15/18 04/23/18 pregabalin [Lyrica] 100 mg PO BID 08/29/18 10/08/18 Previous Rx's Medication Instructions Recorded tramadol [Ultram] 50 mg PO Q6H PRN #20 tab 04/01/18 aspirin 81 mg PO DAILY #30 tab 04/24/18 carvedilol [Coreg] 25 mg PO BID 30 Days #120 tab 04/24/18 clonidine HCl [Catapres] 0.1 mg PO BID #30 tab 04/24/18 isosorbide mononitrate 60 mg PO DAILY@0700 #30 tab 04/24/18 torsemide 20 mg PO DAILY #30 tab 04/24/18 Allergies Allergy/AdvReac Type Severity Reaction Status Date / Time benazepril Allergy Severe ANGIOEDEMA Verified 05/03/18 02:34 captopril Allergy Severe ANGIOEDEMA Verified 05/03/18 02:34 enalaprilat Allergy Severe Edema Verified 05/03/18 02:34 fosinopril Allergy Severe ANGIOEDEMA Verified 05/03/18 02:34 lisinopril Allergy Severe ANGIOEDEMA Verified 05/03/18 02:34 quinapril Allergy Severe ANGIOEDEMA Verified 05/03/18 02:34 DAWIT Inhibitors Allergy Swelling Verified 05/03/18 02:34 of Lip/Tongue/Throat hydromorphone AdvReac Intermediate ITCHING Verified 05/03/18 02:34 Review of Systems ROS: all other systems reviewed are negative [facility] Medical History Medical History Chronic anticoagulation (Acute) Hx of abdominal aortic aneurysm (Acute) Hypertension (Acute) Diabetes (Acute) COPD (chronic obstructive pulmonary disease) (Acute) Chronic back pain (Acute) Chronic kidney disease (Acute) Hyperlipidemia (Acute) Peripheral vascular disease (Acute) Renal mass (Acute) Surgical History Surgical History H/O heart artery stent (Acute) History of hip replacement (Acute) History of cholecystectomy (Acute) Status post femoral-popliteal bypass surgery (Acute) Family History Family History Other Family history of hypertension Social History Social History Substance History: No History of Abuse Second Hand Smoke Exposure: Yes Smoking Status: Former smoker Tobacco Type: Cigarettes How Often Do You Have a Drink Containing Alcohol: Never Recent Travel in [facility] within the Last 8 Weeks: No Recent Out of Country Travel within the Last 8 Weeks: No Immunization History Tetanus Immunization Year if Known: 2013 Exam Narrative Exam Narrative: GENERAL: Well-nourished, well-developed patient. SKIN: Focused skin assessment warm/dry. HEAD: Normocephalic. EYES: No scleral icterus. No injection or drainage. NECK: Supple, trachea midline. No JVD or lymphadenopathy. CARDIOVASCULAR: Regular rate and rhythm without murmurs, gallops, or rubs. RESPIRATORY: Breath sounds equal bilaterally. No accessory muscle use. GASTROINTESTINAL: Abdomen soft, non-tender, nondistended. MUSCULOSKELETAL: No cyanosis, or edema. Mild reproducible lower lumbar spine tenderness to direct palpation. BACK: Nontender without obvious deformity. No CVA tenderness. Course Initial Documented Vital Signs Temperature 97.6 F 05/03/18 02:30 Pulse Rate 63 05/03/18 02:30 Respiratory Rate 18 05/03/18 02:30 Blood Pressure 198/93 H 05/03/18 02:30 Pulse Oximetry 97 05/03/18 02:30 Last Documented Vital Signs Temperature 97.6 F 05/03/18 02:30 Pulse Rate 70 05/03/18 02:41 Respiratory Rate 17 05/03/18 02:41 Blood Pressure 126/76 05/03/18 02:41 Pulse Oximetry 97 05/03/18 02:41 Medical Decision Making [facility] Narrative Medical decision making narrative: 62-year-old male with history of hypertension CAD dyslipidemia diabetes renal failure chronic pain syndrome presents for complaint of chest pain and low back pain. Patient placed on court monitor IV access obtained specimens collected and sent for resulting EKG ordered. Patient administered sublingual nitroglycerin as needed to obtain resolution of chest discomfort or to hold for systolic pressure less than or equal to 100 mmHg. Sublingual nitroglycerin 0.4 mg ordered x3 doses; patient denies any pain relief after nitroglycerin and request pain medication. EKG is sinus rhythm with no acute injury pattern or ectopy noted. Patient given morphine sulfate 4 mg IV along with Zofran 4 mg IV for complaint of persistent unremitting low back pain. Patient labs identify chronic thrombocytopenia renal insufficiency that appears to be somewhat worse from his last visit BUN 29 creatinine is up to 2.27 and hyperglycemia for poorly controlled diabetes. Patient's troponin I is mildly elevated at 0.06; his total CK is 250; and his BNP is not elevated at 44. Chest x-ray shows cardiomegaly mild cephalization no effusions lung sounds are clear to auscultation patient denies shortness of breath and room air O2 saturation supine and 97%. In view of elevated troponin I with complaint of chest pain history of abdominal aortic aneurysm CT abdomen and pelvis ordered however because of his renal function is a noncontrast study and patient's case is discussed with on- call [facility] MD Dr. Molina for admission. Medical Screen Exam Complete: Yes Emergency Medical Condition: Yes Differential Diagnosis Differential Diagnosis: Chest pain, atypical chest pain, ACS, WI, aortic dissection, aortic aneurysm, PE, musculoskeletal pain, electrolyte disturbance Medical Records Medical records reviewed: Yes I reviewed the patient's medical records. Lab Data Lab results reviewed: Yes I reviewed the patient's lab results. Result diagrams: 05/03/18 03:15 05/03/18 03:15 Lab Results 05/03/18 05/03/18 05/03/18 Range/Units 03:15 03:15 03:15 WBC 5.5 (4.0-11.0) th/mm3 RBC 4.20 L (4.50-5.90) mil/mm3 Hgb 11.4 L (13.0-17.0) gm/dL Hct 34.7 L (39.0-51.0) % MCV 82.8 (80.0-100.0) fL MCH 27.3 (27.0-34.0) pg MCHC 32.9 (32.0-36.0) % RDW 16.9 (11.6-17.2) % Plt Count 125 L (150-450) th/mm3 MPV 8.1 (7.0-11.0) fL Neut % (Auto) 65.4 (16.0-70.0) % Lymph % (Auto) 21.1 (9.0-44.0) % Vance % (Auto) 10.1 H (0.0-8.0) % Eos % (Auto) 2.7 (0.0-4.0) % Baso % (Auto) 0.7 (0.0-2.0) % Neut # (Auto) 3.6 (1.8-7.7) th/mm3 Lymph # (Auto) 1.2 (1.0-4.8) th/mm3 Vance # (Auto) 0.6 (0.0-0.9) th/mm3 Eos # (Auto) 0.1 (0.0-0.4) th/mm3 Baso # (Auto) 0.0 (0.0-0.2) th/mm3 WBC Differential . Differential Comment Auto diff final PT 10.0 (9.8-11.6) sec INR 1.0 Ratio APTT 24.7 (24.3-30.1) sec Sodium 137 (136-145) meq/L Potassium 4.0 (3.5-5.1) meq/L Chloride 100 (98-107) meq/L Carbon Dioxide 31.0 (21.0-32.0) meq/L Anion Gap 6 (5-15) meq/L BUN 29 H (7-18) mg/dL Creatinine 2.27 H (0.60-1.30) mg/dL Estimated GFR 36 L (>89) mL/min Random Glucose 519 H* (74-106) mg/dL Calcium 8.1 L (8.5-10.1) mg/dL Magnesium 2.5 (1.5-2.5) mg/dL Total Bilirubin 0.5 (0.2-1.0) mg/dL AST 26 (15-37) U/L ALT 55 (12-78) U/L Alkaline Phosphatase 119 H (45-117) U/L Total Creatine Kinase 250 (39-308) U/L CK-MB (CK-2) 2.0 (0.5-3.6) ng/mL Troponin I 0.06 H (0.02-0.05) ng/mL B-Natriuretic Peptide (0-100) pg/mL Total Protein 6.7 (6.4-8.2) g/dL Albumin 2.9 L (3.4-5.0) g/dL Lipase 201 (73-393) U/L 05/03/18 Range/Units 03:15 WBC (4.0-11.0) th/mm3 RBC (4.50-5.90) mil/mm3 Hgb (13.0-17.0) gm/dL Hct (39.0-51.0) % MCV (80.0-100.0) fL MCH (27.0-34.0) pg MCHC (32.0-36.0) % RDW (11.6-17.2) % Plt Count (150-450) th/mm3 MPV (7.0-11.0) fL Neut % (Auto) (16.0-70.0) % Lymph % (Auto) (9.0-44.0) % Vance % (Auto) (0.0-8.0) % Eos % (Auto) (0.0-4.0) % Baso % (Auto) (0.0-2.0) % Neut # (Auto) (1.8-7.7) th/mm3 Lymph # (Auto) (1.0-4.8) th/mm3 Vance # (Auto) (0.0-0.9) th/mm3 Eos # (Auto) (0.0-0.4) th/mm3 Baso # (Auto) (0.0-0.2) th/mm3 WBC Differential Differential Comment PT (9.8-11.6) sec INR Ratio APTT (24.3-30.1) sec Sodium (136-145) meq/L Potassium (3.5-5.1) meq/L Chloride (98-107) meq/L Carbon Dioxide (21.0-32.0) meq/L Anion Gap (5-15) meq/L BUN (7-18) mg/dL Creatinine (0.60-1.30) mg/dL Estimated GFR (>89) mL/min Random Glucose (74-106) mg/dL Calcium (8.5-10.1) mg/dL Magnesium (1.5-2.5) mg/dL Total Bilirubin (0.2-1.0) mg/dL AST (15-37) U/L ALT (12-78) U/L Alkaline Phosphatase (45-117) U/L Total Creatine Kinase (39-308) U/L CK-MB (CK-2) (0.5-3.6) ng/mL Troponin I (0.02-0.05) ng/mL B-Natriuretic Peptide 44 (0-100) pg/mL Total Protein (6.4-8.2) g/dL Albumin (3.4-5.0) g/dL Lipase (73-393) U/L Imaging Data Radiologist's impression: Chest X-Ray 05/03/18 02:41 CONCLUSION: Cardiomegaly and findings of vascular congestion without overt failure. This is new when compared with the prior exam. Abdomen/Pelvis CT 05/03/18 04:29 CONCLUSION: No evidence of acute abdominal or pelvic process. No masses are identified. ECG Data EKG Prior to Arrival: No Interpretation: EKG: Normal sinus rhythm rate [address] elevation injury pattern or ectopy noted normal axis and intervals Discharge Plan Discharge Disposition Patient Disposition: 30 Still Patient Discharge Condition Condition: Stable Discharge Details Diagnosis: Chest pain, Chronic anticoagulation, H/O CHF, Hyperglycemia due to type 2 diabetes mellitus, CRI (chronic renal insufficiency) Physicians Team ED Provider: Louann Stewart Primary Care Provider: Primary Care [facility] Yoo Attending Provider: Shady Cheek Status ED Status: Admitted Patient
[2018-05-03] MEDS: Sod Chloride 0.9% Inj 1,000 ML IV.CONT SCH ×2 (03:22→20:49)
[2018-05-03] MEDS ORDERED: Morphine Inj 4 MG/ML Vial IV.PUSH ONE (03:33)
[2018-05-03 03:37] LABS: Baso % (Auto) 0.7 % (0.0-2.0); Eos # (Auto) 0.1 th/mm3 (0.0-0.4); Eos % (Auto) 2.7 % (0.0-4.0); Hematocrit 34.7 % (39.0-51.0); Hemoglobin 11.4 gm/dL (13.0-17.0); Lymph # (Auto) 1.2 th/mm3 (1.0-4.8); Lymph % (Auto) 21.1 % (9.0-44.0); Mean Corpuscular HGB Conc 32.9 % (32.0-36.0); Mean Corpuscular Hemoglobin 27.3 pg (27.0-34.0); Mean Corpuscular Volume 82.8 fL (80.0-100.0); Mean Platelet Volume 8.1 fL (7.0-11.0); Mono # (Auto) 0.6 th/mm3 (0.0-0.9); Mono % (Auto) 10.1 % (0.0-8.0); Neut # (Auto) 3.6 th/mm3 (1.8-7.7); Neut % (Auto) 65.4 % (16.0-70.0); Platelet Count 125 th/mm3 (150-450); Red Cell Distribution Width 16.9 % (11.6-17.2); White Blood Count 5.5 th/mm3 (4.0-11.0)
[2018-05-03 03:54] LABS: Activated Partial Thrombo Time 24.7 sec (24.3-30.1)
[2018-05-03 03:58] LABS: Anion Gap 6 meq/L (5-15)
[2018-05-03 04:03] LABS: Alanine Aminotransferase 55 U/L (12-78); Albumin 2.9 g/dL (3.4-5.0); Alkaline Phosphatase 119 U/L (45-117); Aspartate Aminotransferase 26 U/L (15-37); Blood Urea Nitrogen 29 mg/dL (7-18); Calcium 8.1 mg/dL (8.5-10.1); Chloride 100 meq/L (98-107); Creatine Kinase 250 U/L (39-308); Glomerular Filtration Rate 36 mL/min (>89); Lipase 201 U/L (73-393); Magnesium 2.5 mg/dL (1.5-2.5); Sodium 137 meq/L (136-145); Total Protein 6.7 g/dL (6.4-8.2); Troponin I 0.06 ng/mL (0.02-0.05)
[2018-05-03 04:06] LABS: Glucose,Random 519 mg/dL (74-106)
--- NOTE | 2018-05-03 04:17 | XR ---
EXAM DATE: 05/03/2018 2:41 AM EDT AGE/SEX: 62 years / Male INDICATIONS: Chest pain. CLINICAL DATA: This is the patient's initial encounter. Patient reports that signs and symptoms have been present for 1 day and indicates a pain score of 7/10. MEDICAL/SURGICAL HISTORY: Cardiovascular disease. Coronary artery stent. COMPARISON: C, CHEST 1V SINGLE AP, 04/23/2018. . FINDINGS: The cardiac silhouette is enlarged in transverse diameter. There is prominence of the central pulmona ry vasculature with indistinct vascular margins compatible with vascular congestion but no evidence o f overt failure. No pleural effusions are identified. CONCLUSION: Cardiomegaly and findings of vascular congestion without overt failure. This is new when compared wit h the prior exam. Electronically signed by: Kentrell Dominguez MD 05/03/2018 4:16 AM EDT
[2018-05-03] MEDS: Torsemide 20 MG Tablet PO SCH (04:21)
[2018-05-03] MEDS ORDERED: Dextrose 50% in Water 50 ML Vial IV.PUSH PRN (04:56)
[2018-05-03] MEDS ORDERED: Bisacodyl 10 MG Supp RECTAL PRN (04:57)
[2018-05-03] MEDS ORDERED: Acetaminophen 325 MG Tablet PO PRN (04:57)
[2018-05-03] MEDS ORDERED: Sodium Chlor 0.9% Inj 500 ML IV.SIG SCH (05:00)
[2018-05-03] MEDS ORDERED: Sodium Chloride 0.9% 2 ML Flush PRN IV.FLUSH (05:18)
--- NOTE | 2018-05-03 05:38 | CT ---
EXAM DATE: 05/03/2018 4:33 AM EDT AGE/SEX: 62 years / Male INDICATIONS: Abdomen pain and back pain. CLINICAL DATA: This is the patient's initial encounter. Patient reports that signs and symptoms have been present for 1 day and indicates a pain score of 8/10. MEDICAL/SURGICAL HISTORY: Cardiovascular disease. Hypertension. Aneurysm, abdominal. COPD. P VD. Diabetes Abdominal aortic aneurysm repair. Coronary artery stent. Cholecystectomy. Fem-pop. RADIATION DOSE: 23.74 CTDI (mGy) ; Patient body habitus COMPARISON: [facility] [place], CT ABDOMEN & PELVIS W/O CONTRAST, 08/09/2016. . TECHNIQUE: Multiple contiguous axial images were obtained through the abdomen. Images were obtained using multiple row detector helical technique. Using automated exposure control and adjustment of the mA and/or kV according to patient size, radiation dose was kept as low as reasonably achievable to o btain optimal diagnostic quality images. DICOM format image data is available electronically for rev iew and comparison. FINDINGS: Examination of the lung bases demonstrates no abnormality. No pleural fluid is identified. No pulmona ry nodules are present. There is linear atelectasis on the left. The gallbladder is absent. The panc reas demonstrates normal contour without evidence of mass or ductal dilatation. The kidneys are rodri l bilaterally without evidence of mass or hydronephrosis. The left adrenal gland is unremarkable. Th ere is a nodule in the right adrenal gland likely reflecting adenoma measuring 10 mm. There has been no significant change when compared to the prior exam. There is previous endograft repair Examination of the pelvis demonstrates no evidence of free fluid or pelvic mass. No abnormally enlarg ed inguinal or retroperitoneal lymph nodes are present. The bladder is unremarkable. CONCLUSION: No evidence of acute abdominal or pelvic process. No masses are identified. Electronically signed by: Kentrell Dominguez MD 05/03/2018 5:36 AM EDT
[2018-05-03] MEDS ORDERED: Heparin - SQ 10,000 UNITS/ML Vial SQ SCH (06:00)
[2018-05-03] MEDS ORDERED: Orphenadrine Inj 60 MG/2 ML Ampul IM ONE (06:09)
[2018-05-03] MEDS: Senna/Docusate Sodium 8.6/50 MG Tablet PO SCH ×2 (08:46→20:48)
[2018-05-03] MEDS: Insulin NovoLOG Aspart Correctional Sugar Inj SQ SCH ×4 (08:46→20:49)
--- NOTE | 2018-05-03 10:57 | P.HPIM ---
History of Present Illness Service: [facility]ist. Primary Care Physician: No Primary Care Physician Chief Complaint: Chest pain History of Present Illness: 62 Y/O male with a medical history significant for HTN, DM, CKD, chronic back pain, COPD who presented to the hospital with complaint of chest pain. Fercho reports pain on the left side of his chest that comes and goes. No relation to activities. No associated shortness of breath or diaphoresis. He was admitted for the same about 10 days ago. He was found to have hypertensive urgency a the time. He was seen by Cardiology and there was no need for further cardiac workup since he has had a recent cath and no revascularization was indicated. High concern about compliance with medications. The patient reports to me that he is taking his medications but could not tell me exactly how he is taking them. Currently he is chest pain free. Inpatient Certification: I certify that the inpatient services were ordered in accordance with Medicare regulations governing the order. This includes certification that hospital inpatient services are reasonable and necessary and in the case of services not specified as inpatient-only under 42 CFR 419.22(n), that they are appropriately provided as inpatient services in accordance to with the 2-midnight benchmark under 43 CFR 412.3(e) Estimated Total Length of Stay (Days): 2 Plans for Post Hospital Care: Not yet determined Review of Systems All other systems reviewed negative except as stated in HPI PMFSH - History History Provided By: Patient - Medical History Medical History: Medical History (Last Reviewed 05/04/18 @ 00:18 by Shady Cheek MD) Chronic anticoagulation (Acute) Hx of abdominal aortic aneurysm (Acute) Hypertension (Acute) Diabetes (Acute) COPD (chronic obstructive pulmonary disease) Chronic back pain Chronic kidney disease Hyperlipidemia Peripheral vascular disease Renal mass - Surgical History Surgical History: Surgical History (Last Reviewed 05/04/18 @ 00:19 by Shady Cheek MD) H/O heart artery stent (Acute) History of hip replacement (Acute) History of cholecystectomy Status post femoral-popliteal bypass surgery - Family History Family History: Family History (Last Reviewed 05/04/18 @ 00:19 by Shady Cheek MD) Other Family history of hypertension - Social History I have reviewed the patient's Social History: Yes - Tobacco History Second Hand Smoke Exposure: No Tobacco Use In Past 30 Days: No Smoking Status: Former smoker Tobacco Type: Cigarettes - Alcohol History How Often Do You Have a Drink Containing Alcohol: Never - Substance Use History Substance History: Past History - Travel History Recent Travel in the [place] Within the Last 8 Weeks: No Recent Travel Out of the Country Within the Last 8 Weeks: No - Immunization History Tetanus Immunization: Unsure Tetanus Immunization Year if Known: 2013 Hx Influenza Vaccine This Season: No Medications and Allergies Active Medications: Active Medications Acetaminophen (Tylenol) 650 mg PO Q4H PRN PRN Reason: Temp > 100.4 Al Hydroxide/Mg Hydroxide (Milk Of Magnesia Liq) 30 ml PO Q12H PRN PRN Reason: Mild Constipation Bisacodyl (Dulcolax Supp) 10 mg RECTAL DAILY PRN PRN Reason: SEVERE CONSITIPATION Dextrose (D50w Vial) 50 ml IV.PUSH UNSCH PRN PRN Reason: PER HYPOGLYCEMIA PROTOCOL Glucagon (Glucagon Inj) 1 mg OTHER PRN PRN PRN Reason: for Hypoglycemia Protocol Heparin Sodium (Porcine) (Heparin Inj) 5,000 units SQ Q8H [facility] Last Admin: 05/03/18 06:25 Dose: 5,000 units Sodium Chloride (Ns Inj) 1,000 mls @ 84 mls/hr IV.CONT .[id number] [facility] Last Admin: 05/03/18 03:22 Dose: 84 mls/hr Sodium Chloride (Ns Inj) 500 mls @ 0 mls/hr IV.SIG BOLUS [facility] Insulin Aspart (Novolog Insulin Correctional Sugar Inj) 0 unit SQ ACHS AND 3AM CARLOZ; Protocol Last Admin: 05/03/18 08:46 Dose: 3 unit Lactulose (Lactulose Liq) 30 ml PO DAILY PRN PRN Reason: SEVERE CONSITIPATION Morphine Sulfate (Morphine Inj) 4 mg IV.PUSH Q4H PRN PRN Reason: pain 6-10 Ondansetron HCl (Zofran Inj) 4 mg IV.PUSH Q6H PRN PRN Reason: NAUSEA OR VOMITING Senna/Docusate Sodium (Sobeida-Colace) 1 tab PO BID [facility] Last Admin: 05/03/18 08:46 Dose: 1 tab Sennosides (Senokot) 17.2 mg PO Q12H PRN PRN Reason: Moderate Constipation Sodium Chloride (Ns Flush) 2 ml IV.FLUSH BID CARLOZ Sodium Chloride (Ns Flush) 2 ml IV.FLUSH PRN PRN PRN Reason: FLUSH AFTER USING IV ACCESS Allergies Allergy/AdvReac Type Severity Reaction Status Date / Time benazepril Allergy Severe ANGIOEDEMA Verified 05/03/18 02:34 captopril Allergy Severe ANGIOEDEMA Verified 05/03/18 02:34 enalaprilat Allergy Severe Edema Verified 05/03/18 02:34 fosinopril Allergy Severe ANGIOEDEMA Verified 05/03/18 02:34 lisinopril Allergy Severe ANGIOEDEMA Verified 05/03/18 02:34 quinapril Allergy Severe ANGIOEDEMA Verified 05/03/18 02:34 DAWIT Inhibitors Allergy Swelling Verified 05/03/18 02:34 of Lip/Tongue/Throat hydromorphone AdvReac Intermediate ITCHING Verified 05/03/18 02:34 Home Medications Medication Instructions Recorded Confirmed Type apixaban [Eliquis] 2.5 mg PO BID 01/15/18 05/03/18 History insulin glargine [Lantus U-100 42 unit SUB-Q BID 01/15/18 05/03/18 History Insulin] potassium chloride 20 meq PO DAILY 01/15/18 05/03/18 History pregabalin [Lyrica] 100 mg PO BID 03/14/18 05/03/18 History Exam Vital signs: Vital Signs 05/03/18 02:30 05/03/18 02:41 05/03/18 06:26 Temperature 97.6 F Pulse Rate 63 70 63 Respiratory Rate 18 17 18 Blood Pressure 198/93 H 126/76 163/97 H Pulse Oximetry 97 97 05/03/18 08:18 Temperature 98.1 F Pulse Rate 62 Respiratory Rate 16 Blood Pressure 178/81 H Pulse Oximetry 94 L Intake & Output 05/02/18 05/03/18 05/03/18 18:59 06:59 18:59 Weight 117.934 kg 117.934 kg Other: Weight On Admission 117.934 kg Narrative: GENERAL: No acute distress. SKIN: Warm and dry. HEAD: Atraumatic. Normocephalic. EYES: Pupils equal and round. No scleral icterus. No injection or drainage. ENT: No nasal bleeding or discharge. Mucous membranes pink and moist. NECK: Trachea midline. No JVD. CARDIOVASCULAR: Regular rate and rhythm. RESPIRATORY: No accessory muscle use. Clear to auscultation. Breath sounds equal bilaterally. GASTROINTESTINAL: Abdomen soft, non-tender, nondistended. Hepatic and splenic margins not palpable. MUSCULOSKELETAL: Extremities without clubbing, cyanosis, or edema. No obvious deformities. NEUROLOGICAL: Awake and alert. No obvious cranial nerve deficits. Motor grossly within normal limits. PSYCHIATRIC: Appropriate mood and affect; insight and judgment normal. Results - Labs CBC & Chem 7: 05/03/18 03:15 05/03/18 03:15 Labs: Short CBC 05/03/18 Range/Units 03:15 WBC 5.5 (4.0-11.0) th/mm3 Hgb 11.4 L (13.0-17.0) gm/dL Hct 34.7 L (39.0-51.0) % Plt Count 125 L (150-450) th/mm3 BMP 05/03/18 03:15 Sodium 137 Potassium 4.0 Chloride 100 Carbon Dioxide 31.0 BUN 29 H Creatinine 2.27 H Calcium 8.1 L Cardiac Enzymes 05/03/18 Range/Units 03:15 Total Creatine Kinase 250 (39-308) U/L CK-MB (CK-2) 2.0 (0.5-3.6) ng/mL Troponin I 0.06 H (0.02-0.05) ng/mL Liver Function 05/03/18 Range/Units 03:15 Total Bilirubin 0.5 (0.2-1.0) mg/dL AST 26 (15-37) U/L ALT 55 (12-78) U/L Alkaline Phosphatase 119 H (45-117) U/L Albumin 2.9 L (3.4-5.0) g/dL - Imaging Impressions Chest X-Ray 05/03/18 02:41 CONCLUSION: Cardiomegaly and findings of vascular congestion without overt failure. This is new when compared with the prior exam. Abdomen/Pelvis CT 05/03/18 04:29 CONCLUSION: No evidence of acute abdominal or pelvic process. No masses are identified. Caprini VTE Risk Assessment Caprini VTE Risk Assessment: Moderate/High Risk (score >= 2) Caprini Risk Assessment Model: Point Value = 1 Point Value = 2 Point Value = 3 Point Value = 5 Age 41-60 Minor surgery BMI > 25 kg/m2 Swollen legs Varicose veins or History of unexplained or recurrent spontaneous Oral contraceptives or hormone replacement Sepsis (< 1 month) Serious lung disease, including pneumonia (< 1 month) Abnormal pulmonary function Acute myocardial infarction Congestive heart failure (< 1 month) History of inflammatory bowel disease Medical patient at bed rest Age 61-74 Arthroscopic surgery Major open surgery (> 45 min) Laparoscopic surgery (> 45 min) Malignancy Confined to bed (> 72 hours) Immobilizing plaster cast Central venous access Age >= 75 History of VTE Family history of VTE Factor V Leiden Prothrombin [id number] Lupus anticoagulant Anticardiolipin antibodies Elevated serum homocysteine Heparin-induced thrombocytopenia Other congenital or acquired thrombophilia Stroke (< 1 month) Elective arthroplasty Hip, pelvis, or leg fracture Acute spinal cord injury (< 1 month) Prophylaxis Regimen: Total Risk Factor Score Risk Level Prophylaxis Regimen 0-1 Low Early ambulation 2 Moderate Order ONE of the following: *Sequential Compression Device (SCD) *Heparin 5000 units SQ BID 3-4 Higher Order ONE of the following medications: *Heparin 5000 units SQ TID *Enoxaparin/Lovenox 40 mg SQ daily (WT < 150 kg, CrCl > 30 mL/min) *Enoxaparin/Lovenox 30 mg SQ daily (WT < 150 kg, CrCl > 10-29 mL/min) *Enoxaparin/Lovenox 30 mg SQ BID (WT < 150 kg, CrCl > 30 mL/min) AND/OR *Sequential Compression Device (SCD) 5 or more Highest Order ONE of the following medications: *Heparin 5000 units SQ TID (Preferred with Epidurals) *Enoxaparin/Lovenox 40 mg SQ daily (WT < 150 kg, CrCl > 30 mL/min) *Enoxaparin/Lovenox 30 mg SQ daily (WT < 150 kg, CrCl > 10-29 mL/min) *Enoxaparin/Lovenox 30 mg SQ BID (WT < 150 kg, CrCl > 30 mL/min) AND *Sequential Compression Device (SCD) Assessment and Plan - Plan 62 Y/O male with : Hypertensive urgency/chronically elevated troponin in intermediate range: - Concern for compliance. Mutiple admission for the same. Seen by Cardiology 9 days ago here and antihypertensives titrated. Unremarkable cath 1 month ago - Resume home dose Coreg, Clonidine, Imdur, Torsemide. - Monitor BP and adjust antihypertensive as needed. - Trend Cardiac enzymes - May benefit from Home health to ensure he is taking meds appropriately. Need close follow up with PCP. Chronic kidney disease baseline Monitor renal function Diabetes mellitus Sliding-scale insulin Monitor blood glucose with accucheck Hyperlipidemia/COPD/PVD Continue home medications H&P: Quality - VTE Deep Vein Thrombosis/Pulmonary Embolism Present on Admission: No
[2018-05-03] MEDS: Sodium Chloride 0.9% 2 ML Flush BID IV.FLUSH SCH ×2 (11:33→20:49)
[2018-05-03] MEDS: Morphine Inj 4 MG/ML Vial IV.PUSH PRN ×3 (11:34→20:48)
[2018-05-03 11:57] LABS: Troponin I 0.06 ng/mL (0.02-0.05)
[2018-05-03] MEDS: Carvedilol 12.5 MG Tablet PO SCH ×2 (12:46→20:48)
[2018-05-03 16:20] LABS: Troponin I 0.07 ng/mL (0.02-0.05)
--- NOTE | 2018-05-03 18:35 | ECG ---
Date Performed: 05/03/2018 Time Performed: 03:23:31 PTAGE: 62 years EKG: Sinus rhythm NORMAL ECG PREVIOUS TRACING : 04/24/2018 10.10 Since the previous tracing, no significant change noted DOCTOR: Ketan Kim Interpretating Date/Time 05/03/2018 18:35:51
[2018-05-04] MEDS: Morphine Inj 4 MG/ML Vial IV.PUSH PRN ×5 (01:34→21:48)
[2018-05-04] MEDS: Insulin NovoLOG Aspart Correctional Sugar Inj SQ SCH ×5 (03:11→22:14)
[2018-05-04] MEDS: Sod Chloride 0.9% Inj 1,000 ML IV.CONT SCH (04:27)
[2018-05-04] MEDS: Isosorbide Mononitrate 60 MG ER 24HR Tablet (Imdur) PO SCH (06:02)
[2018-05-04] MEDS: Carvedilol 12.5 MG Tablet PO SCH ×2 (08:01→20:05)
[2018-05-04] MEDS: Senna/Docusate Sodium 8.6/50 MG Tablet PO SCH ×2 (08:01→20:05)
[2018-05-04] MEDS: Sodium Chloride 0.9% 2 ML Flush BID IV.FLUSH SCH ×2 (08:02→20:04)
[2018-05-04 08:18] LABS: Baso % (Auto) 0.6 % (0.0-2.0); Eos # (Auto) 0.2 th/mm3 (0.0-0.4); Eos % (Auto) 3.3 % (0.0-4.0); Hematocrit 36.5 % (39.0-51.0); Lymph # (Auto) 1.4 th/mm3 (1.0-4.8); Lymph % (Auto) 22.8 % (9.0-44.0); Mean Corpuscular Hemoglobin 27.5 pg (27.0-34.0); Mean Corpuscular Volume 83.4 fL (80.0-100.0); Mean Platelet Volume 8.3 fL (7.0-11.0); Mono # (Auto) 0.6 th/mm3 (0.0-0.9); Mono % (Auto) 9.5 % (0.0-8.0); Neut % (Auto) 63.8 % (16.0-70.0); Platelet Count 142 th/mm3 (150-450); Red Blood Count 4.37 mil/mm3 (4.50-5.90); White Blood Count 6.2 th/mm3 (4.0-11.0)
[2018-05-04 08:45] LABS: Calcium 8.8 mg/dL (8.5-10.1); Carbon Dioxide 31.2 meq/L (21.0-32.0); Potassium 4.2 meq/L (3.5-5.1)
--- NOTE | 2018-05-04 09:53 | P.PN ---
Subjective Interval history: Follow-up uncontrolled hypertension. Improving shortness of breath. He has chronic left lower extremity pain status post multiple vascular surgery. Counseled regarding narcotics Physical Exam Vital signs: Vital Signs 05/03/18 11:00 05/03/18 12:33 05/03/18 15:00 Temperature 98.3 F Pulse Rate 69 69 63 Respiratory Rate 16 Blood Pressure 182/92 H Pulse Oximetry 05/03/18 15:16 05/03/18 17:58 05/03/18 20:00 Temperature 98.6 F 97.5 F L 98.2 F Pulse Rate 65 86 63 Respiratory Rate 18 20 17 Blood Pressure 129/64 180/101 H 188/91 H Pulse Oximetry 93 L 93 L 96 05/04/18 00:00 05/04/18 01:15 05/04/18 04:00 Temperature 98.0 F 98.0 F Pulse Rate 55 L 58 L Respiratory Rate 18 18 Blood Pressure 163/85 H 153/70 H Pulse Oximetry 98 95 05/04/18 08:00 Temperature 97.9 F Pulse Rate 59 L Respiratory Rate 17 Blood Pressure 179/91 H Pulse Oximetry 98 Intake & Output 05/03/18 05/04/18 05/04/18 18:59 06:59 18:59 Intake Total 620 / 620 1500 / 1500 Balance 620 / 620 1500 / 1500 Weight 117.934 kg Intake: IV 1000 / 1000 NS Inj 1,000 ML @ 84 mls/hr IV. 1000 / 1000 CONT .[id number] [facility] Rx#:[id number] Oral 620 / 620 500 / 500 Other: # Voids 4 3 Date of Last Bowel Movement 05/01/18 05/01/18 Weight On Admission 117.934 kg Narrative: GENERAL: No acute distress. SKIN: Warm and dry. CARDIOVASCULAR: Regular rate and rhythm. RESPIRATORY: No accessory muscle use. Clear to auscultation. Breath sounds equal bilaterally. GASTROINTESTINAL: Abdomen soft, non-tender, nondistended. MUSCULOSKELETAL: Extremities without clubbing, cyanosis, or edema. Deformed left lower extremity from extensive vascular surgery NEUROLOGICAL: Awake and alert. No obvious cranial nerve deficits. Motor grossly within normal limits. PSYCHIATRIC: Appropriate mood and affect; insight and judgment normal. Results - Labs CBC & Chem 7: 05/04/18 07:11 05/04/18 07:11 Laboratory Results - last 24 hr 05/03/18 05/03/18 05/03/18 11:06 12:39 15:46 WBC RBC Hgb Hct MCV MCH MCHC RDW Plt Count MPV Neut % (Auto) Lymph % (Auto) [place] % (Auto) Eos % (Auto) Baso % (Auto) Neut # (Auto) Lymph # (Auto) [place] # (Auto) Eos # (Auto) Baso # (Auto) WBC Differential Differential Comment Sodium Potassium Chloride Carbon Dioxide Anion Gap BUN Creatinine Estimated GFR POC Glucose 79 Random Glucose Calcium Total Creatine Kinase 281 260 Troponin I 0.06 H 0.07 H 05/03/18 05/03/18 05/04/18 16:22 20:37 03:07 WBC RBC Hgb Hct MCV MCH MCHC RDW Plt Count MPV Neut % (Auto) Lymph % (Auto) [place] % (Auto) Eos % (Auto) Baso % (Auto) Neut # (Auto) Lymph # (Auto) [place] # (Auto) Eos # (Auto) Baso # (Auto) WBC Differential Differential Comment Sodium Potassium Chloride Carbon Dioxide Anion Gap BUN Creatinine Estimated GFR POC Glucose 317 H 385 H 163 H Random Glucose Calcium Total Creatine Kinase Troponin I 05/04/18 05/04/18 05/04/18 07:11 07:11 07:14 WBC 6.2 RBC 4.37 L Hgb 12.0 L Hct 36.5 L MCV 83.4 MCH 27.5 MCHC 33.0 RDW 17.0 Plt Count 142 L MPV 8.3 Neut % (Auto) 63.8 Lymph % (Auto) 22.8 [place] % (Auto) 9.5 H Eos % (Auto) 3.3 Baso % (Auto) 0.6 Neut # (Auto) 4.0 Lymph # (Auto) 1.4 [place] # (Auto) 0.6 Eos # (Auto) 0.2 Baso # (Auto) 0.0 WBC Differential . Differential Comment Auto diff final Sodium 142 Potassium 4.2 Chloride 106 Carbon Dioxide 31.2 Anion Gap 5 BUN 28 H Creatinine 1.86 H Estimated GFR 45 L POC Glucose 94 Random Glucose 83 D Calcium 8.8 Total Creatine Kinase Troponin I - Imaging ITS Impressions Chest X-Ray 05/03/18 02:41 CONCLUSION: Cardiomegaly and findings of vascular congestion without overt failure. This is new when compared with the prior exam. Abdomen/Pelvis CT 05/03/18 04:29 CONCLUSION: No evidence of acute abdominal or pelvic process. No masses are identified. - Procedures none Assessment and Plan - Plan 62 Y/O male with : Hypertensive urgency/chronically elevated troponin in intermediate range: - Concern for compliance. Multiple admission for the same. Seen by Cardiology 9 days ago here and antihypertensives titrated. Cath 03/16/18 with nonobstructive CAD no intervention - Resume home dose Coreg, Imdur, Torsemide and increase clonidine 2.2 mg twice a day - Monitor BP and adjust antihypertensive as needed. - May benefit from Home health to ensure he is taking meds appropriately. Need close follow up with PCP. Chronic kidney disease, stage III baseline Monitor renal function Diabetes mellitus, uncontrolled latest A1c 10.4 02/2018 Sliding-scale insulin. Restart Levemir insulin Monitor blood glucose with accucheck. Counseled Hyperlipidemia/COPD/PVD Continue home medications DVT patient on Eliquis Discharge Planning: Possible discharge in 1-2 days
[2018-05-04] MEDS: Torsemide 20 MG Tablet PO SCH (11:08)
--- NOTE | 2018-05-04 16:19 | P.DCO ---
- Diagnosis (1) Chest pain, atypical Status: Acute (2) Hypertension Status: Chronic - Home Health Nursing Order: Medical education, CHF education, Medication education-adverse effect, Nursing assessment with vital signs - Case Management Consult Yes - Certification I have seen patient Elvin William on 05/04/18. My clinical findings support the need for the requested home health care services because: Patient has SOB I certify that my clinical findings support that this patient is homebound because: Poor cardiac reserve (2) Hypertension Qualifiers:
--- NOTE | 2018-05-04 17:39 | ECG ---
Date Performed: 05/03/2018 Time Performed: 19:30:04 PTAGE: 62 years EKG: Sinus rhythm Since the previous tracing, no significant change noted NORMAL ECG PREVIOUS TRACING : 05/03/2018 03.23 DOCTOR: Jesu Hernandez Interpretating Date/Time 05/04/2018 17:38:04
[2018-05-04] MEDS ORDERED: Insulin Detemir Inj 1,000 UNIT/10 ML Vial SQ SCH (21:00)
[2018-05-05] MEDS: Insulin NovoLOG Aspart Correctional Sugar Inj SQ SCH ×5 (02:48→21:17)
[2018-05-05] MEDS: Isosorbide Mononitrate 60 MG ER 24HR Tablet (Imdur) PO SCH (06:35)
--- NOTE | 2018-05-05 08:15 | P.PN ---
Subjective Interval history: Follow-up hypertension and diabetes mellitus. Complains of itching but no shortness of breath. He has dry skin. BP readings improving. He is hyperglycemic doubt dietary compliance. Yesterday morning glucose 94 today's 343. Physical Exam Vital signs: Vital Signs 05/04/18 10:48 05/04/18 12:00 05/04/18 12:42 Temperature 97.7 F Pulse Rate 71 Respiratory Rate 18 18 18 Blood Pressure 169/81 H Pulse Oximetry 99 05/04/18 16:00 05/04/18 16:15 05/04/18 17:57 Temperature 97.8 F Pulse Rate 67 Respiratory Rate 18 18 Blood Pressure 158/90 H Pulse Oximetry 95 95 05/04/18 20:00 05/04/18 20:05 05/05/18 00:00 Temperature 98.3 F 98.8 F Pulse Rate 66 62 Respiratory Rate 18 18 18 Blood Pressure 182/81 H 155/74 H Pulse Oximetry 94 L 97 05/05/18 04:00 05/05/18 05:15 Temperature 98.5 F Pulse Rate 70 Respiratory Rate 18 Blood Pressure 174/87 H 156/82 H Pulse Oximetry 97 Intake & Output 05/04/18 05/05/18 05/05/18 18:59 06:59 18:59 Intake Total 1320 / 1320 Output Total 1625 / 1625 Balance 1320 / 1320 -1625 / -1625 Weight 118 kg Intake: Oral 1320 / 1320 Output: Urine 1625 / 1625 Other: # Voids 4 Date of Last Bowel Movement 05/02/18 Narrative: GENERAL: No acute distress. SKIN: Warm and dry. CARDIOVASCULAR: Regular rate and rhythm. RESPIRATORY: No accessory muscle use. Clear to auscultation. Breath sounds equal bilaterally. GASTROINTESTINAL: Abdomen soft, non-tender, nondistended. MUSCULOSKELETAL: Extremities without clubbing, cyanosis, or edema. Deformed left lower extremity from extensive vascular surgery NEUROLOGICAL: Awake and alert. No obvious cranial nerve deficits. Motor grossly within normal limits. Results - Labs CBC & Chem 7: 05/04/18 07:11 05/04/18 07:11 Laboratory Results - last 24 hr 05/04/18 05/04/18 05/04/18 07:11 07:11 11:45 WBC 6.2 RBC 4.37 L Hgb 12.0 L Hct 36.5 L MCV 83.4 MCH 27.5 MCHC 33.0 RDW 17.0 Plt Count 142 L MPV 8.3 Neut % (Auto) 63.8 Lymph % (Auto) 22.8 [place] % (Auto) 9.5 H Eos % (Auto) 3.3 Baso % (Auto) 0.6 Neut # (Auto) 4.0 Lymph # (Auto) 1.4 [place] # (Auto) 0.6 Eos # (Auto) 0.2 Baso # (Auto) 0.0 WBC Differential . Differential Comment Auto diff final Sodium 142 Potassium 4.2 Chloride 106 Carbon Dioxide 31.2 Anion Gap 5 BUN 28 H Creatinine 1.86 H Estimated GFR 45 L POC Glucose 347 H Random Glucose 83 D Calcium 8.8 05/04/18 05/04/18 05/05/18 17:05 21:53 02:43 WBC RBC Hgb Hct MCV MCH MCHC RDW Plt Count MPV Neut % (Auto) Lymph % (Auto) [place] % (Auto) Eos % (Auto) Baso % (Auto) Neut # (Auto) Lymph # (Auto) [place] # (Auto) Eos # (Auto) Baso # (Auto) WBC Differential Differential Comment Sodium Potassium Chloride Carbon Dioxide Anion Gap BUN Creatinine Estimated GFR POC Glucose 276 H 316 H 431 H Random Glucose Calcium 05/05/18 07:56 WBC RBC Hgb Hct MCV MCH MCHC RDW Plt Count MPV Neut % (Auto) Lymph % (Auto) [place] % (Auto) Eos % (Auto) Baso % (Auto) Neut # (Auto) Lymph # (Auto) [place] # (Auto) Eos # (Auto) Baso # (Auto) WBC Differential Differential Comment Sodium Potassium Chloride Carbon Dioxide Anion Gap BUN Creatinine Estimated GFR POC Glucose 353 H Random Glucose Calcium - Procedures none Assessment and Plan - Assessment (1) Chest pain, atypical Code(s): R07.89 - Other chest pain Status: Acute (2) Hypertension Code(s): I10 - Essential (primary) hypertension Status: Chronic - Plan 62 Y/O male with : Hypertensive urgency/chronically elevated troponin in intermediate range: - Concern for compliance. Multiple admission for the same. Seen by Cardiology 9 days ago here and antihypertensives titrated. Cath 03/16/18 with nonobstructive CAD no intervention - Resume home dose Coreg, Imdur, Torsemide and increased clonidine to 2 mg twice a day. BP readings improving - Monitor BP and adjust antihypertensive as needed. - May benefit from Home health to ensure he is taking meds appropriately. Need close follow up with PCP. Chronic kidney disease, stage III baseline Monitor renal function Diabetes mellitus, uncontrolled latest A1c 10.4 02/2018 Sliding-scale insulin. Restart Levemir insulin, increase bedtime dose to 50 units. Expected hypoglycemia yesterday as patient did not receive morning dose of Levemir. Again counseled regarding compliance. Diabetic education Monitor blood glucose with accucheck. Counseled Hyperlipidemia/COPD/PVD Continue home medications DVT patient on Eliquis Discharge Planning: Discharge if fingersticks less than 250. (2) Hypertension Qualifiers:
[2018-05-05] MEDS: Carvedilol 12.5 MG Tablet PO SCH ×2 (08:50→20:58)
[2018-05-05] MEDS: Senna/Docusate Sodium 8.6/50 MG Tablet PO SCH ×2 (08:50→20:58)
[2018-05-05] MEDS: Insulin Detemir Inj 1,000 UNIT/10 ML Vial SQ SCH ×2 (08:53→12:22)
[2018-05-05] MEDS: Sodium Chloride 0.9% 2 ML Flush BID IV.FLUSH SCH ×2 (08:53→21:18)
[2018-05-05] MEDS: Torsemide 20 MG Tablet PO SCH (08:53)
[2018-05-05] MEDS ORDERED: Morphine Sulfate Inj 2 MG/ML Vial IV.PUSH ONE (12:30)
--- NOTE | 2018-05-05 15:44 | P.DS ---
Date of admission: 05/03/18 04:57 Primary care physician: No Primary Care Physician Anticipated date of discharge: 05/06/18 Brief History from admission: 62 Y/O male with a medical history significant for HTN, DM, CKD, chronic back pain, COPD who presented to the hospital with complaint of chest pain. Patine reports pain on the left side of his chest that comes and goes. No relation to activities. No associated shortness of breath or diaphoresis. He was admitted for the same about 10 days ago. He was found to have hypertensive urgency a the time. He was seen by Cardiology and there was no need for further cardiac workup since he has had a recent cath and no revascularization was indicated. High concern about compliance with medications. The patient reports to me that he is taking his medications but could not tell me exactly how he is taking them. Currently he is chest pain free. DS: Diagnosis - Discharge Diagnosis (1) Chest pain, atypical Status: Acute (2) Hypertension Status: Chronic DS: Medications - Discharge Medications Prescriptions: amlodipine [Norvasc] 5 mg PO DAILY #30 tab DS: Summary Hospital Course: 62 Y/O male with : Hypertensive urgency/chronically elevated troponin in intermediate range: - Concern for compliance. Multiple admission for the same. Seen by Cardiology 9 days ago here and antihypertensives titrated. Cath 03/16/18 with nonobstructive CAD no intervention - Resume home dose Coreg, Imdur, Torsemide and increased clonidine to 2 mg twice a day. Added Norvasc. BP improving - Monitor BP and adjust antihypertensive as needed. - May benefit from Home health to ensure he is taking meds appropriately. Need close follow up with PCP. Chronic kidney disease, stage III baseline Monitor renal function Diabetes mellitus, uncontrolled latest A1c 10.4 02/2018 Sliding-scale insulin. Restart Levemir insulin, increased to 50 units BID. Again counseled regarding compliance. Diabetic education Monitor blood glucose with accucheck. Counseled Hyperlipidemia/COPD/PVD Continue home medications DVT patient on Eliquis Eforcse queried, ct home narcs - Time Spent with Patient Total time spent providing and/or coordinating discharge services: Greater than 30 minutes - Quality: VTE Deep Vein Thrombosis/Pulmonary Embolism Present on Admission: No Exam Vital signs: Vital Signs 05/04/18 16:00 05/04/18 16:15 05/04/18 17:57 Temperature 97.8 F Pulse Rate 67 Respiratory Rate 18 18 Blood Pressure 158/90 H Pulse Oximetry 95 95 05/04/18 20:00 05/04/18 20:05 05/05/18 00:00 Temperature 98.3 F 98.8 F Pulse Rate 66 62 Respiratory Rate 18 18 18 Blood Pressure 182/81 H 155/74 H Pulse Oximetry 94 L 97 05/05/18 04:00 05/05/18 05:15 05/05/18 08:00 Temperature 98.5 F 98.8 F Pulse Rate 70 69 Respiratory Rate 18 17 Blood Pressure 174/87 H 156/82 H 178/86 H Pulse Oximetry 97 94 L 05/05/18 09:00 05/05/18 12:00 Temperature 97.9 F Pulse Rate 73 64 Respiratory Rate 18 Blood Pressure 143/64 H Pulse Oximetry 97 Intake & Output 05/04/18 05/05/18 05/05/18 18:59 06:59 18:59 Intake Total 1320 / 1320 Output Total 1625 / 1625 Balance 1320 / 1320 -1625 / -1625 Weight 118 kg Intake: Oral 1320 / 1320 Output: Urine 1625 / 1625 Other: # Voids 4 Date of Last Bowel Movement 05/02/18 05/02/18 Narrative: GENERAL: No acute distress. SKIN: Warm and dry. CARDIOVASCULAR: Regular rate and rhythm. RESPIRATORY: No accessory muscle use. Clear to auscultation. Breath sounds equal bilaterally. GASTROINTESTINAL: Abdomen soft, non-tender, nondistended. MUSCULOSKELETAL: Extremities without clubbing, cyanosis, or edema. Deformed left lower extremity from extensive vascular surgery NEUROLOGICAL: Awake and alert. No obvious cranial nerve deficits. Motor grossly within normal limits. Results Procedures completed during hospitalization: none Labs on day of discharge: Labs from last 24 hours 05/05/18 05/05/18 05/05/18 12:03 07:56 02:43 POC Glucose 423 H 353 H 431 H 05/04/18 05/04/18 21:53 17:05 POC Glucose 316 H 276 H - Impressions ITS Impressions Chest X-Ray 05/03/18 02:41 CONCLUSION: Cardiomegaly and findings of vascular congestion without overt failure. This is new when compared with the prior exam. Abdomen/Pelvis CT 05/03/18 04:29 CONCLUSION: No evidence of acute abdominal or pelvic process. No masses are identified. Discharge Plan - Discharge Disposition Patient Disposition: W/Home Health Service - Discharge Condition Condition: Stable - Discharge Order Discharge Orders: Discharge Order (Routine); Ordered 05/05/18 Ordered By: Harrison Hutchins - Discharge Details Discharge Comment: Dc if FS < 250 - Physicians Team Primary Care Provider: [facility] Attending Provider: Harrison Hutchins Other Providers: Aparna Braun
[2018-05-05] MEDS ORDERED: Insulin Detemir Inj 1,000 UNIT/10 ML Vial SQ SCH ×2 (17:25→21:00)
[2018-05-05] MEDS ORDERED: amLODIPine 5 MG Tablet PO SCH (17:30)
[2018-05-05] MEDS: Morphine Sulfate Inj 2 MG/ML Vial IV.PUSH PRN ×2 (17:48→22:54)
[2018-05-06] MEDS: Insulin NovoLOG Aspart Correctional Sugar Inj SQ SCH ×3 (03:11→12:46)
[2018-05-06] MEDS: Morphine Sulfate Inj 2 MG/ML Vial IV.PUSH PRN ×2 (06:01→12:06)
[2018-05-06] MEDS: Isosorbide Mononitrate 60 MG ER 24HR Tablet (Imdur) PO SCH (06:02)
--- NOTE | 2018-05-06 09:15 | P.PN ---
Subjective Interval history: Follow-up hypertension and diabetes mellitus patient has no complaints today. Enforced compliance. Physical Exam Vital signs: Vital Signs 05/05/18 12:00 05/05/18 16:00 05/05/18 17:00 Temperature 97.9 F 97.7 F Pulse Rate 64 69 Respiratory Rate 18 17 Blood Pressure 143/64 H 192/92 H 148/80 H Pulse Oximetry 97 96 05/05/18 20:00 05/05/18 20:29 05/05/18 21:16 Temperature 98.2 F Pulse Rate 65 83 Respiratory Rate 18 18 Blood Pressure 192/100 H Pulse Oximetry 97 05/05/18 22:54 05/06/18 00:00 05/06/18 00:09 Temperature 98.2 F Pulse Rate 66 59 L Respiratory Rate 18 17 Blood Pressure 139/66 Pulse Oximetry 96 05/06/18 03:03 05/06/18 04:00 05/06/18 06:00 Temperature 98.4 F Pulse Rate 62 Respiratory Rate 18 17 18 Blood Pressure 144/63 H Pulse Oximetry 98 05/06/18 06:25 05/06/18 08:00 Temperature 98.2 F Pulse Rate 69 Respiratory Rate 20 18 Blood Pressure 165/92 H Pulse Oximetry 99 Intake & Output 05/05/18 05/06/18 05/06/18 18:59 06:59 18:59 Weight 118 kg Other: # Voids 4 3 Date of Last Bowel Movement 05/02/18 05/02/18 05/02/18 Narrative: GENERAL: No acute distress. SKIN: Warm and dry. CARDIOVASCULAR: Regular rate and rhythm. RESPIRATORY: No accessory muscle use. Clear to auscultation. Breath sounds equal bilaterally. GASTROINTESTINAL: Abdomen soft, non-tender, nondistended. MUSCULOSKELETAL: Extremities without clubbing, cyanosis, or edema. Deformed left lower extremity from extensive vascular surgery NEUROLOGICAL: Awake and alert. No obvious cranial nerve deficits. Motor grossly within normal limits. Results - Labs CBC & Chem 7: 05/04/18 07:11 05/04/18 07:11 Laboratory Results - last 24 hr 05/05/18 05/05/18 05/05/18 12:03 16:45 19:40 POC Glucose 423 H 364 H 404 H 05/06/18 05/06/18 03:07 08:16 POC Glucose 260 H 269 H - Procedures none Assessment and Plan - Assessment (1) Chest pain, atypical Code(s): R07.89 - Other chest pain Status: Acute (2) Hypertension Code(s): I10 - Essential (primary) hypertension Status: Chronic - Plan 62 Y/O male with : Hypertensive urgency/chronically elevated troponin in intermediate range: - Concern for compliance. Multiple admission for the same. Seen by Cardiology 9 days ago here and antihypertensives titrated. Cath 03/16/18 with nonobstructive CAD no intervention - Resume home dose Coreg, Imdur, Torsemide and increased clonidine to 2 mg twice a day. Added Norvasc. BP improving - Monitor BP and adjust antihypertensive as needed. - May benefit from Home health to ensure he is taking meds appropriately. Need close follow up with PCP. Chronic kidney disease, stage III baseline Monitor renal function Diabetes mellitus, uncontrolled latest A1c 10.4 02/2018 Sliding-scale insulin. Restart Levemir insulin, increased to 50 units BID. Again counseled regarding compliance. Diabetic education Monitor blood glucose with accucheck. Counseled Hyperlipidemia/COPD/PVD Continue home medications DVT patient on Eliquis Discharge Planning: Discharge if fingersticks less than 250. (2) Hypertension Qualifiers:
[2018-05-06] MEDS: Senna/Docusate Sodium 8.6/50 MG Tablet PO SCH (09:21)
[2018-05-06] MEDS: Carvedilol 12.5 MG Tablet PO SCH (09:21)
[2018-05-06] MEDS: Torsemide 20 MG Tablet PO SCH (09:27)
[2018-05-06] MEDS ORDERED: amLODIPine 5 MG Tablet PO SCH (10:00)
[2018-05-06] MEDS: Sodium Chloride 0.9% 2 ML Flush BID IV.FLUSH SCH (10:44)
[2018-05-06 12:07] VITALS: BP 151/73; PULSE 76; RESP 17; TEMP 98.6; O2SAT 96
== END 2018-05-06 14:11 | disposition home or self-care (01) ==
LOC: NEPC 02:28 → NEDA 04:57 → HCIN 06:47 → N06 17:51
PROVIDERS: ADMIT Internal Medicine; ATTEND Internal Medicine